=== PATIENT | female | born 1955 | race African-American/Black ===

== ENCOUNTER 2017-03-15 01:31 | Inpatient (IN) | payer OTHER ==
--- NOTE | 2017-03-15 01:56 | PDOC ---
History of Present Illness - General Stated Complaint: BODY PAIN Time Seen by Provider: 03/15/17 01:46 - History of Present Illness Initial Comments: 61 year old female with PMH of HIV (CD4 600+ and Vl undetectable 3 months ago) , asymptomatic kidney stones, presenting with 2 days of crampy abdominal pain occasionally co-presenting in her flanks bilaterally as well. Her abdominal pain started without inciting trauma or peculiar food ingestion. The pain is a 10/10 (at worst) crampy abdominal pain that occasionally wraps around her flanks bilaterally. She does admit that the pain is positional in nature and much worse with sudden movements. She also endorses recent darkening of her urine. Denies continued nausea, vomiting, diarrhea, constipation, chest pain, or blood from any orifice. 03/15/17 02:39 03/15/17 04:40 Past History - Past Medical History Allergies/Adverse Reactions: Allergies Allergy/AdvReac Type Severity Reaction Status Date / Time piperacillin sodium Allergy Mild Itching Verified 03/15/17 02:13 [From Zosyn] tazobactam sodium Allergy Mild Itching Verified 03/15/17 02:13 [From Zosyn] vancomycin AdvReac Intermediate Difficulty Verified 03/15/17 02:13 Breathing lactose-intolerance AdvReac Unknown Uncoded 03/15/17 02:13 Home Medications: Ambulatory Orders Morphine Sulfate 15 mg PO BID #0 tablet 01/24/14 Cyclobenzaprine HCl 10 tab PO BID 04/27/14 Gabapentin [Neurontin -] 300 mg PO Q8H 12/26/15 Ammonium Lactate Lotion [Lac-Hydrin 12] 1 applic TP BID #1 bottle 08/27/16 Abacavir/Dolutegravir/Lamivudi [Triumeq Tablet] 1 each PO DAILY #30 tablet 12/17 Albuterol 0.083% Nebulizer Aruna [Ventolin 0.083% Nebulizer Soln -] 1 neb PO PRN # 90 amp MDD 4 12/17/16 Albuterol Sulfate Inhaler - [Ventolin HFA Inhaler -] 1 - 2 inh PO Q6H PRN #1 inhaler 12/17/16 Docusate Sodium [Colace -] 100 mg PO BID #60 capsule 12/17/16 Multivitamin [Poly-Vitamin] 1 each PO DAILY #30 tab.chew 12/17/16 Tiotropium [place] [Spiriva] 1 inh IH DAILY #1 inh 12/17/16 Valacyclovir HCl [Valtrex -] 500 mg PO DAILY #30 tablet 12/17/16 Anemia: Yes (hemolytic anema 2011) Asthma: Yes Cancer: No Cardiac Disorders: No CVA: No COPD: Yes (legionella pneumonia 2008, cavitary pneumonia 2012, bronch negative, bronch) CHF: No Dementia: No Diabetes: No GI Disorders: Yes (granulomatous hepatitis) Disorders: No HTN: No Hypercholesterolemia: No HIV: Yes (HIV+) Kidney Stones: No Liver Disease: Yes Psychiatric Problems: Yes (Seen for depression in 1998 when diagnosed HIV+) Suicide Attempt (Hx): No Seizures: No Thyroid Disease: No - Surgical History Abdominal Surgery: Yes (ectopic in 1986, TUBAL LIGATION) Appendectomy: No Cardiac Surgery: No Cholecystectomy: Yes (GB SX) Lung Surgery: No Neurologic Surgery: No Orthopedic Surgery: No - Reproductive History PID: No - Psycho/Social/Smoking Cessation Hx Anxiety: No Suicidal Ideation: No Smoking Status: Yes (QUIT 05/2012) Smoking History: Never smoked Years of Tobacco Use: 30 Have you smoked in the past 12 months: No Number of Cigarettes Smoked Daily: 5 If you are a former smoker, when did you quit?: 2012 Cigars Per Day: 0 'Breaking Loose' booklet given: 12/21/11 Hx Alcohol Use: No Drug/Substance Use Hx: No Substance Use Type: Cocaine, Prescribed Hx Substance Use Treatment: Yes Review of Systems - Review of Systems Constitutional: No: Chills, Diaphoresis, Fever, Loss of Appetite HEENTM: No: Eye Pain, Blurred Vision Respiratory: No: Cough, Shortness of Breath, SOB with Exertion Cardiac (ROS): No: Chest Pain, Edema, Irregular Heart Rate ABD/GI: Yes: Abdominal Distended, Nausea, Vomiting. No: Constipated, Diarrhea : Yes: Flank Pain. 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 negative: Tender, Rigid Respiratory/Chest: positive: Lungs Clear, Normal Breath Sounds. negative: Chest Tender, Respiratory Distress, Accessory Muscle Use Cardiovascular: positive: Regular Rhythm, Regular Rate, S1, S2. negative: Edema , Murmur Gastrointestinal/Abdominal: positive: Normal Bowel Sounds, Tender (Very tender in epgiastrium and LUQ to light palpation. Tender to Deep palpation in her lef lower quadrant. No guarding but abdomen appears rigid even prior to touch.). negative: Flat, Soft, Organomegaly Musculoskeletal: positive: Normal Inspection, Other (Unable to ascertain CVA tenderness because of pain.) Extremity: positive: Normal Inspection, Normal Range of Motion Integumentary: positive: Normal Color, Dry, Warm Neurologic: positive: Fully Oriented, Alert, Normal Mood/Affect, Motor Strength 5/5 Heart Score/ECG Review - Electrocardiogram EKG: Normal - ECG Intrepretation Rhythm: Regular Rhythm - [place]: Normal - ECG Impressions Normal ECG: Yes Non-specific ST Elevation: No Ischemic Changes: No (Nonspecific S waves throughout but present in EKG from 2014. No signs.) ED Treatment Course - LABORATORY CBC & Chemistry Diagram: 03/15/17 02:30 03/15/17 02:30 Medical Decision Making - Medical Decision Making 61 year odl female with well controlled HIV and history of asymptomatic kidney stones presenting with crampy intermittent positional abdominal pain worse in the epigastrium and LUQ. This is most concernign for renal colic gien her recent urianry changes and history of kidney stones. Her gallbladder has been removed so cholelithiasis is lower on the differential as well diverticulitis/ deverticulosis. A more serious etiology such as AAA or cardiac insult/ ACS should also be ruled out given her HIV history and age as this could be atypical ND presentation. CBC, CMP, Lipase, troponin, EKG, Chest XR, and CT abdomen with IV contrast will be pursued (once CR returns) 03/15/17 03:51 03/15/17 04:37 Ct with IV con demonstrating some nonspecific liver changes that could represent a slew of pathologies but no sign of renal stone or any other acute pathology to mention. However, she is still having abdominal pain worse with movement. Her CBC, and CMP demonstrate an element of mild CKD and consistently elevated alkaline phosphate compared to her previous values. She also has a new thrombocytopenia as of the last 8 months that has been downtrending 208 () , 130 ( 12/2016), and 120 today. The etiology of her Thrombocytopenia is most likely due to her enlarged spleen which could also be the source for her belly pain. 03/15/17 04:45 03/15/17 04:55 Given her persistently concerning abdominal exam, she should be admitted for serial belly exams and general observation. 03/15/17 05:[address] Arambula PGY2 on at approximately 5:00 AM and he will admit the patient for observation. *DC/Admit/Observation/Transfer Diagnosis at time of Disposition: Abdominal pain - Discharge Dispostion Condition at time of disposition: Stable Admit: Yes - Attestations Physician Attestion: 03/15/17 05:34 I, Dr. Akilah Bender, attest that this document has been prepared under my direction and personally reviewed by me in its entirety. I further attest, that it accurately reflects all work, treatment, procedures and medical decision -making performed by me.
[2017-03-15 02:37] LABS: BASOPHIL 0.5 % (0-2.0); EOSINOPHIL 3.9 % (0-4.5); MCH 32.4 pg (25.7-33.7); MCHC 33.8 g/dl (32.0-36.0); MEAN CELL VOLUME 95.9 fl (80-96); PLATELET COUNT 120 K/MM3 (134-434); RDW 15.5 % (11.6-15.6); WHITE BLOOD COUNT 4.6 K/mm3 (4.0-10.0)
--- NOTE | 2017-03-15 02:47 | PDOC ---
Attending Attestation - Resident Resident Name: Akilah Bender - HPI HPI: 03/15/17 02:41 61yo F hx HIV (CD4 600, UD VL 3 months ago), kidney stones, cholelithiasis p/w 2 days of abdominal pain. Sudden onset, atraumatic, pain is worse in epigastric area, wraps around to flanks b/l. 1 episode N/V 2 days ago, was NBNB. No diarrhea, CP, SOB, F/C. Pain has not gone away, prompting her to come to the ED. No dysuria or frequency. - Physicial Exam PE: 03/15/17 02:44 Vital Signs Period Temp Pulse Resp BP Sys/Wade Pulse Ox Last 24 Hr 98 F 94 22 88-90/44-55 95 GENERAL: Awake, alert, and fully oriented, in no acute distress HEAD: No signs of trauma EYES: PERRLA, EOMI, sclera anicteric, conjunctiva clear ENT: Auricles normal inspection, hearing grossly normal, nares patent, oropharynx clear without exudates. Moist mucosa NECK: Normal ROM, supple, no lymphadenopathy, JVD, or masses LUNGS: Breath sounds equal, clear to auscultation bilaterally. No wheezes, and no crackles HEART: Regular rate and rhythm, normal S1 and S2, no murmurs, rubs or gallops ABDOMEN: Soft, normoactive bowel sounds. No guarding, no rebound. No masses. + TTP in epigastric, LUQ and LLQ ttp. EXTREMITIES: Normal range of motion, no edema. No clubbing or cyanosis. No cords, erythema, or tenderness NEUROLOGICAL: A/O x3. 5/5 strength in all 4 extremities. Normal sensation in all 4 extremities. Negative pronator drift. Normal finger nose finger test. Cranial nerves II through XII grossly intact. Normal speech, normal gait SKIN: Warm, Dry, normal turgor, no rashes or lesions noted. 03/15/17 04:27 EKG: NSR, normal axis and intervals, no DOMINIQUE, no TWI, no change compared to EKG from 01/18/2014 - Medical Decision Making 03/15/17 02:47 61yo hx HIV, cholelithiasis, kidney stones p/w crampy abd pain x 2 days. DDx wide and includes renal colic vs pancreatitis, diverticulitis, UTI vs gastritis. Will obtain EKG and trop in case epigastric pain is atypical presentation of ACS. BP in 80s/90s systolic, pt reports she runs at times as low as the 70s systolic however previous records here show systolic BPs in the low 100s. -labs -UA -CTAP -pain control -IVF -reassess 03/15/17 06:36 CTAP with no acute findings Pt continues to complain of epigastric abd pain, distention despite multiple rounds of pain medication Will admit to hospitalist for further monitoring, serial abdominal exams, and management
[2017-03-15] MEDS ORDERED: SODIUM CHLORIDE 0.9% 1000 ML INFUS.BAG IV ONE (03:01)
[2017-03-15] MEDS ORDERED: morphine CARPU-JECT 2 MG/1 ML DISP.SYRIN IVPUSH ONE (03:03)
[2017-03-15 03:06] LABS: ALBUMIN 2.6 g/dl (3.4-5.0); ALK PHOS 235 U/L (45-117); ANION GAP 3 (8-16); BILIRUBIN,TOTAL 0.9 mg/dL (0.2-1.0); CO2 31 mmol/L (21-32); CREATININE 1.2 mg/dL (0.55-1.02); GLUCOSE,RANDOM 115 mg/dL (74-106); SGOT/AST 43 U/L (15-37); SGPT/ALT 33 U/L (12-78); TOT PROT 7.6 g/dl (6.4-8.2)
[2017-03-15] MEDS ORDERED: morphine CARPU-JECT 4 MG/1 ML DISP.SYRIN ONE ×2 (03:06→06:48)
[2017-03-15 03:26] LABS: CPK 64 IU/L (26-192); TROPONIN I < 0.02 ng/ml (0.00-0.05)
--- NOTE | 2017-03-15 06:01 | PN ---
Teaching Attending Note Name of Resident: Zulma Conley ATTENDING PHYSICIAN STATEMENT I saw and evaluated the patient. I reviewed the resident's note and discussed the case with the resident. I agree with the resident's findings and plan as documented. SUBJECTIVE: 61 yo M with pmhx of HIV (CD4 600) VL undectable, Lymphadenopathy (?Sarciod)who presents with abdominal pain since Wednesday. Pt. states pain started out as "gas" pains Wednesday, but did not dissapate. Pain only occurs with change in position and is concentrated on her left side. States she vomited (bilious, non- bloody) X1 on Wednesday. Nothing has improved pain, except laying still. No chest pain, pressure or shortness of breath. Pshx: Gallbladder removed Biopsy of RP nodes- Benign as per pt. OBJECTIVE: Physical: VS: Vital Signs Period Temp Pulse Resp BP Sys/Wade Pulse Ox Last 24 Hr 98 F 94 22 88-90/44-55 95 GEN: Elderly Female, in NAD, resting in bed HEENT: NCAT, PERRL, poor dentition, throat clear withour erythema or exudates CARD: RRR S1, S2 RESP: CTAB ABD: BSX4, Mild distension, diffuse tenderness to palpation EXT: - C/C/E CBCD WBC 4.6 K/mm3 (4.0-10.0) D 03/15/17 02:30 RBC 3.83 M/mm3 (3.60-5.2) 03/15/17 02:30 Hgb 12.4 GM/dL (10.7-15.3) 03/15/17 02:30 Hct 36.8 % (32.4-45.2) 03/15/17 02:30 MCV 95.9 fl (80-96) 03/15/17 02:30 MCHC 33.8 g/dl (32.0-36.0) 03/15/17 02:30 RDW 15.5 % (11.6-15.6) 03/15/17 02:30 Plt Count 120 K/MM3 (134-434) L 03/15/17 02:30 MPV 9.0 fl (7.5-11.1) 03/15/17 02:30 CMP Sodium 137 mmol/L (136-145) 03/15/17 02:30 Potassium 4.0 mmol/L (3.5-5.1) 03/15/17 02:30 Chloride 103 mmol/L (98-107) 03/15/17 02:30 Carbon Dioxide 31 mmol/L (21-32) 03/15/17 02:30 Anion Gap 3 (8-16) L 03/15/17 02:30 BUN 15 mg/dL (7-18) D 03/15/17 02:30 Creatinine 1.2 mg/dL (0.55-1.02) H 03/15/17 02:30 Creat Clearance w eGFR 45.37 (>60) 03/15/17 02:30 Random Glucose 115 mg/dL (74-106) H D 03/15/17 02:30 Calcium 8.0 mg/dL (8.5-10.1) L 03/15/17 02:30 Total Bilirubin 0.9 mg/dL (0.2-1.0) D 03/15/17 02:30 AST 43 U/L (15-37) H 03/15/17 02:30 ALT 33 U/L (12-78) 03/15/17 02:30 Alkaline Phosphatase 235 U/L (45-117) H 03/15/17 02:30 Total Protein 7.6 g/dl (6.4-8.2) 03/15/17 02:30 Albumin 2.6 g/dl (3.4-5.0) L 03/15/17 02:30 CARDIAC ENZYMES Creatine Kinase 64 IU/L (26-192) 03/15/17 02:30 Troponin I < 0.02 ng/ml (0.00-0.05) 03/15/17 02:30 CT AP: Enlarged liver suggesting Cirrhosis, RP and intraperitoneal LN, L. Renal cyst, diverticulossis Home Medications Medication Instructions Recorded Morphine Sulfate 15 mg PO BID #0 tablet 01/24/14 Cyclobenzaprine HCl 10 tab PO BID 04/27/14 Gabapentin [Neurontin -] 300 mg PO Q8H 12/26/15 Ammonium Lactate Lotion 1 applic TP BID #1 bottle 08/27/16 [Lac-Hydrin 12] Abacavir/Dolutegravir/Lamivudi 1 each PO DAILY #30 tablet 12/17/16 [Triumeq Tablet] Albuterol 0.083% Nebulizer Aruna 1 neb PO PRN #90 amp MDD 4 12/17/16 [Ventolin 0.083% Nebulizer Soln -] Albuterol Sulfate Inhaler - 1 - 2 inh PO Q6H PRN #1 inhaler 12/17/16 [Ventolin HFA Inhaler -] Docusate Sodium [Colace -] 100 mg PO BID #60 capsule 12/17/16 Multivitamin [Poly-Vitamin] 1 each PO DAILY #30 tab.chew 12/17/16 Tiotropium [place] [Spiriva] 1 inh IH DAILY #1 inh 12/17/16 Valacyclovir HCl [Valtrex -] 500 mg PO DAILY #30 tablet 12/17/16 ASSESSMENT AND PLAN: 61 F with Pmhx of HIV, COPD, Chronic low back pain, knee pain who presents with Left lower quadrant abdominal pain. 1.) Abdominal Pain- Intractable - DDx: Musculoskelatal vs. infection/splenomegaly/Sarcoid - Unknown etiology - CT scan unremarkable- Bx of nodes revealed "granulomas"- refused Sarcoid [place] - Pain control - IVF 2.) HIV - Hold Triumeq in light of inc. Cr - ID consult 3.) LUIS ARMANDO - U lytes - Trend - UA, Ucx, if no improvement renal us 4.) Dvt Ppx - Low Risk- SCDs Place in Obs
[2017-03-15] MEDS ORDERED: ALBUTEROL SO4 6.7 GM HFA INHALER IH PRN ×2 (06:11→06:33)
[2017-03-15] MEDS ORDERED: ALBUTEROL SO4 0.083% IH SOL 2.5 MG/3 ML VIAL.NEB. NEB SCH (06:15)
[2017-03-15] MEDS ORDERED: GABAPENTIN 100 MG CAPSULE (FP) ONE (06:43)
[2017-03-15] MEDS: GABAPENTIN 300 MG CAPSULE (FP) PO SCH ×3 (06:47→21:06)
[2017-03-15] MEDS: SODIUM CHLORIDE 1,000 ML IV SCH ×2 (06:54→19:24)
[2017-03-15] MEDS: morphine CARPU-JECT 4 MG/1 ML DISP.SYRIN IVPUSH PRN ×3 (06:54→21:09)
--- NOTE | 2017-03-15 06:59 | HP ---
CHIEF COMPLAINT: intractable abdominal pain PCP: none, follows Dr. Herndon HISTORY OF PRESENT ILLNESS: 61yo F with PMH of HIV (CD4 600, viral load undetectable), lymphandenopathy presents c/o worsening abdominal pain x 2 days. Pt reports one episode of bilious, non-bloody vomiting Lb morning, then the abdominal pain began which pt attributed to gas. Pt presents to ER this morning with worsening abdominal pain described as tight/contraction-like pain, rated 10/10. Pain is worse with movement and after eating. Pain is improved when pt lies still. In between episodes of pain pt is able to eat and take her medications. Pain spans from left flank to the abdomen. Last BM was yesterday, normal per pt. ER course was notable for: (1) morphine 4mg (2) ns @ 125 ml/hr (3) CXR (4) Ab/Pelvis CT PAST MEDICAL HISTORY: HIV since 1989, only began feeling symptomatic in 2008 COPD PAST SURGICAL HISTORY: cholecystectomy lymph node biopsy near stomach and left subclavicular = normal per pt ectopic 1986 Social History: Smoking: e-cigarette currently, 30 yr hx of smoking Alcohol: none Drugs: none Family History: father passed of adrenal ca at age 72. mother passed of MO at age 68, with hx of htn. Allergies piperacillin sodium [From Zosyn] Allergy (Mild, Verified 03/15/17 02:13) Itching tazobactam sodium [From Zosyn] Allergy (Mild, Verified 03/15/17 02:13) Itching vancomycin Adverse Reaction (Intermediate, Verified 03/15/17 02:13) Difficulty Breathing lactose-intolerance Adverse Reaction (Unknown, Uncoded 03/15/17 02:13) HOME MEDICATIONS: Home Medications Medication Instructions Recorded Morphine Sulfate 15 mg PO BID #0 tablet 01/24/14 Cyclobenzaprine HCl 10 tab PO BID 04/27/14 Gabapentin [Neurontin -] 300 mg PO Q8H 12/26/15 Ammonium Lactate Lotion 1 applic TP BID #1 bottle 08/27/16 [Lac-Hydrin 12] Abacavir/Dolutegravir/Lamivudi 1 each PO DAILY #30 tablet 12/17/16 [Triumeq Tablet] Albuterol 0.083% Nebulizer Aruna 1 neb PO PRN #90 amp MDD 4 12/17/16 [Ventolin 0.083% Nebulizer Soln -] Albuterol Sulfate Inhaler - 1 - 2 inh PO Q6H PRN #1 inhaler 12/17/16 [Ventolin HFA Inhaler -] Docusate Sodium [Colace -] 100 mg PO BID #60 capsule 12/17/16 Multivitamin [Poly-Vitamin] 1 each PO DAILY #30 tab.chew 12/17/16 Tiotropium [place] [Spiriva] 1 inh IH DAILY #1 inh 12/17/16 Valacyclovir HCl [Valtrex -] 500 mg PO DAILY #30 tablet 12/17/16 REVIEW OF SYSTEMS CONSTITUTIONAL: Absent: fever, chills, diaphoresis, generalized weakness, loss of appetite, weight change CARDIOVASCULAR: Absent: chest pain, palpitations, irregular heart rate, peripheral edema RESPIRATORY: Absent: cough, shortness of breath, dyspnea with exertion, wheezing, stridor GASTROINTESTINAL: Present: abdominal pain Absent: abdominal distension, nausea, vomiting, diarrhea, constipation GENITOURINARY: Present: left flank pain Absent: dysuria, frequency, urgency, hesitancy MUSCULOSKELETAL: Absent: myalgia, arthralgia, joint swelling, neck pain SKIN: Absent: rash, itching, pallor HEMATOLOGIC/IMMUNOLOGIC: Absent: easy bleeding, easy bruising, frequent infections ENDOCRINE: Absent: unexplained weight gain, unexplained weight loss, heat intolerance, cold intolerance NEUROLOGIC: Absent: headache, focal weakness or paresthesias, dizziness, unsteady gait, seizure, mental status changes, bladder or bowel incontinence PHYSICAL EXAMINATION Vital Signs - 24 hr 03/15/17 03/15/17 02:13 02:35 Temperature 98 F Pulse Rate 94 H Respiratory 22 Rate Blood Pressure 88/44 Blood Pressure 90/55 [Right Arm] O2 Sat by Pulse 95 Oximetry (%) GENERAL: Awake, alert, and fully oriented, in distress when pain strikes. HEAD: Normal with no signs of trauma. EYES: Pupils equal, round and reactive to light, extraocular movements intact, sclera anicteric, conjunctiva clear. No lid lag. EARS, NOSE, THROAT: Ears normal. Moist mucous membranes. NECK: No JVD, or masses. LUNGS: Breath sounds equal, clear to auscultation bilaterally. No wheezes, and no crackles. No accessory muscle use. HEART: Regular rate and rhythm, normal S1 and S2 without murmur, rub or gallop. ABDOMEN: firm, nontender. Not distended, normoactive bowel sounds, no guarding , no rebound, no masses. LOWER EXTREMITIES: No calf tenderness. No peripheral edema. NEUROLOGICAL: Normal speech. PSYCHIATRIC: Cooperative. Good eye contact. Appropriate mood and affect. SKIN: Warm, dry, normal turgor, no rashes or lesions noted, normal capillary refill. Laboratory Results - last 24 hr 03/15/17 03/15/17 03/15/17 02:30 02:30 02:30 WBC 4.6 D RBC 3.83 Hgb 12.4 Hct 36.8 MCV 95.9 MCH 32.4 MCHC 33.8 RDW 15.5 Plt Count 120 L MPV 9.0 Neutrophils % 55.0 Lymphocytes % 28.5 Monocytes % 12.1 H Eosinophils % 3.9 Basophils % 0.5 Sodium 137 Potassium 4.0 Chloride 103 Carbon Dioxide 31 Anion Gap 3 L BUN 15 D Creatinine 1.2 H Creat Clearance w eGFR 45.37 Random Glucose 115 H D Lactic Acid Calcium 8.0 L Total Bilirubin 0.9 D AST 43 H ALT 33 Alkaline Phosphatase 235 H Creatine Kinase 64 Troponin I < 0.02 Total Protein 7.6 Albumin 2.6 L Lipase 201 03/15/17 02:35 WBC RBC Hgb Hct MCV MCH MCHC RDW Plt Count MPV Neutrophils % Lymphocytes % Monocytes % Eosinophils % Basophils % Sodium Potassium Chloride Carbon Dioxide Anion Gap BUN Creatinine Creat Clearance w eGFR Random Glucose Lactic Acid 0.8 Calcium Total Bilirubin AST ALT Alkaline Phosphatase Creatine Kinase Troponin I Total Protein Albumin Lipase IMAGIN03/15/17 Ab/Pelvic CT pending 03/15/17 CXR pending ASSESSMENT/PLAN: 61yo F with PMH of HIV, COPD admitted to observation for intractable abdominal pain. (1) Intractable abdominal pain - possibly 2/2 musculoskeletal vs splenomegaly/infection - pain control - IVFs - f/u Ab/Pelvic CT (2) HIV - hold HIV medications 2/2 LUIS ARMANDO - ID consult (3) LUIS ARMANDO - f/t U/A, U lytes (3) Thrombocytopenia - f/u CBC, CMP (4) FEN - Fluids: cont. NS - Electrolytes: wnl, cont. to monitor - Nutrition: npo (5) Prophylaxis - renato SCDs Visit type - Emergency Visit Emergency Visit: Yes Care time: The patient presented to the Emergency Department on the above date and was hospitalized for further evaluation of their emergent condition. - New Patient This patient is new to me today: Yes Date on this admission: 03/15/17 - Critical Care Critical Care patient: No
[2017-03-15 08:43] LABS: URINE APPEARANCE CLEAR; URINE BILIRUBIN NEGATIVE (NEGATIVE); URINE BLOOD NEGATIVE (NEGATIVE); URINE COLOR YELLOW; URINE GLUCOSE (UA) NEGATIVE (NEGATIVE); URINE KETONE NEGATIVE (NEGATIVE); URINE NITRITE POSITIVE (NEGATIVE); URINE PROTEIN NEGATIVE (NEGATIVE); URINE UROBILINOGEN NEGATIVE mg/dL (0.2-1.0)
[2017-03-15 08:47] LABS: URINE LEUK ESTERASE 1+ (NEGATIVE)
--- NOTE | 2017-03-15 09:03 | PN ---
Teaching Attending Note Name of Resident: Britton Shahid ATTENDING PHYSICIAN STATEMENT I saw and evaluated the patient. I reviewed the resident's note and discussed the case with the resident. I agree with the resident's findings and plan as documented. SUBJECTIVE: Patient is c/o having abdominal pain. OBJECTIVE: Vital Signs Temperature 98.2 F 03/15/17 08:31 Pulse Rate 88 03/15/17 08:31 Respiratory Rate 18 03/15/17 08:31 Blood Pressure 96/69 03/15/17 08:31 O2 Sat by Pulse Oximetry (%) 99 03/15/17 08:31 CBCD WBC 4.6 K/mm3 (4.0-10.0) D 03/15/17 02:30 RBC 3.83 M/mm3 (3.60-5.2) 03/15/17 02:30 Hgb 12.4 GM/dL (10.7-15.3) 03/15/17 02:30 Hct 36.8 % (32.4-45.2) 03/15/17 02:30 MCV 95.9 fl (80-96) 03/15/17 02:30 MCHC 33.8 g/dl (32.0-36.0) 03/15/17 02:30 RDW 15.5 % (11.6-15.6) 03/15/17 02:30 Plt Count 120 K/MM3 (134-434) L 03/15/17 02:30 MPV 9.0 fl (7.5-11.1) 03/15/17 02:30 CMP Sodium 137 mmol/L (136-145) 03/15/17 02:30 Potassium 4.0 mmol/L (3.5-5.1) 03/15/17 02:30 Chloride 103 mmol/L (98-107) 03/15/17 02:30 Carbon Dioxide 31 mmol/L (21-32) 03/15/17 02:30 Anion Gap 3 (8-16) L 03/15/17 02:30 BUN 15 mg/dL (7-18) D 03/15/17 02:30 Creatinine 1.2 mg/dL (0.55-1.02) H 03/15/17 02:30 Creat Clearance w eGFR 45.37 (>60) 03/15/17 02:30 Random Glucose 115 mg/dL (74-106) H D 03/15/17 02:30 Calcium 8.0 mg/dL (8.5-10.1) L 03/15/17 02:30 Total Bilirubin 0.9 mg/dL (0.2-1.0) D 03/15/17 02:30 AST 43 U/L (15-37) H 03/15/17 02:30 ALT 33 U/L (12-78) 03/15/17 02:30 Alkaline Phosphatase 235 U/L (45-117) H 03/15/17 02:30 Total Protein 7.6 g/dl (6.4-8.2) 03/15/17 02:30 Albumin 2.6 g/dl (3.4-5.0) L 03/15/17 02:30 CARDIAC ENZYMES Creatine Kinase 64 IU/L (26-192) 03/15/17 02:30 Troponin I < 0.02 ng/ml (0.00-0.05) 03/15/17 02:30 Current Medications Generic Name Dose Route Start Last Admin Trade Name Freq PRN Reason Stop Dose Admin Aclidinium [place] 1 puff 03/15/17 10:00 Tudorza - IH BID TERRENCE Albuterol Sulfate 1 amp 03/15/17 06:15 Ventolin 0.083% Nebulizer Soln - NEB PRN TERRENCE Albuterol Sulfate 2 puff 03/15/17 06:11 Ventolin Hfa Inhaler - IH Q6H PRN COUGH Albuterol Sulfate 1 puff 03/15/17 06:33 Ventolin Hfa Inhaler - IH Q6H PRN COUGH Cyclobenzaprine HCl 10 mg 03/15/17 10:00 Flexeril - PO BID TERRENCE Docusate Sodium 100 mg 03/15/17 10:00 Colace - PO BID TERRENCE Gabapentin 300 mg 03/15/17 06:15 03/15/17 06:47 Neurontin - PO Not Given TID TERRENCE Sodium Chloride 1,000 mls @ 125 mls/hr 03/15/17 06:15 03/15/17 06:54 Normal Saline - IV 125 mls/hr ASDIR TERRENCE Administration Lactic Acid 1 applic 03/15/17 10:00 Lac-Hydrin 12 TP BID TERRENCE Morphine Sulfate 4 mg 03/15/17 06:01 03/15/17 06:54 Morphine Injection - IVPUSH 4 mg Q4H PRN Administration PAIN Multivitamins/Minerals/Vitamin C 1 tab 03/15/17 10:00 Tab-A-Vit - PO DAILY COUNT INCLUDES THE [facility] Non-Formulary Medication 1 each 03/15/17 06:25 Abacavir/Dolutegravir/Lamivudi [Triumeq Tablet] PO DAILY COUNT INCLUDES THE [facility] Ondansetron HCl 4 mg 03/15/17 10:00 Zofran Injection IVPUSH DAILY COUNT INCLUDES THE [facility] Valacyclovir HCl 500 mg 03/15/17 10:00 Valtrex - PO DAILY COUNT INCLUDES THE [facility] Home Medications Medication Instructions Recorded Morphine Sulfate 15 mg PO BID #0 tablet 01/24/14 Cyclobenzaprine HCl 10 tab PO BID 04/27/14 Gabapentin [Neurontin -] 300 mg PO Q8H 12/26/15 Ammonium Lactate Lotion 1 applic TP BID #1 bottle 08/27/16 [Lac-Hydrin 12] Abacavir/Dolutegravir/Lamivudi 1 each PO DAILY #30 tablet 12/17/16 [Triumeq Tablet] Albuterol 0.083% Nebulizer Aruna 1 neb PO PRN #90 amp MDD 4 12/17/16 [Ventolin 0.083% Nebulizer Soln -] Albuterol Sulfate Inhaler - 1 - 2 inh PO Q6H PRN #1 inhaler 12/17/16 [Ventolin HFA Inhaler -] Docusate Sodium [Colace -] 100 mg PO BID #60 capsule 12/17/16 Multivitamin [Poly-Vitamin] 1 each PO DAILY #30 tab.chew 12/17/16 Tiotropium [place] [Spiriva] 1 inh IH DAILY #1 inh 12/17/16 Valacyclovir HCl [Valtrex -] 500 mg PO DAILY #30 tablet 12/17/16 CT SCAN SHOWS CIRRHOSIS, ADENOPATHY AND SPLENOMEGALY. SHE HAS HAD A LIVER BIOPSY AND LYMPH NODE BIOPSY IN THE PAST. PE: per resident's note ASSESSMENT AND PLAN: Patient is a 61 YEAR OLD FEMALE HIV POSITIVE, SUBSTANCE ABUSE ,ALCOHOL abuse, hx of sarcoidosis presented to ED. with abdominal pain. THE WORKING # Abdominal pain syndrome: Ct scan without any obstruction; Chronic liver disease # Granulomatous hepatitis work up was done as an outpatient as per # Hx of Sarcoidosis # Abnormal LFTs (liver function tests) # HIV (human immunodeficiency virus infection) HIV + asymptomatic VL <20 CD4 601. OK to continue ART as per ID DVT Px; SCDs
[2017-03-15 09:13] LABS: URINE BACTERIA FEW /hpf (NONE SEEN); URINE RBC 58 /hpf (0-3); URINE WBC 21 /hpf (3-5)
[2017-03-15] MEDS: DOCUSATE SODIUM 100 MG CAPSULE (FP) PO SCH ×2 (11:11→21:06)
[2017-03-15] MEDS: MULTIVITAMINS (DAILY MVI) TABLET (FP) PO SCH (11:11)
[2017-03-15] MEDS: CYCLOBENZAPRINE HCL 10 MG TABLET (FP) PO SCH ×2 (11:11→21:06)
[2017-03-15] MEDS: ONDANSETRON 4 MG/2 ML VIAL IVPUSH SCH (11:11)
[2017-03-15] MEDS: AMMONIUM LACTATE 12% LOTION 225 GM BOTTLE TP SCH ×2 (11:19→21:06)
[2017-03-15] MEDS: ACLIDINIUM BROMIDE 400 MCG/INH AERO.POWD IH SCH ×2 (11:19→21:06)
[2017-03-15] MEDS ORDERED: ALBUTEROL SO4 0.083% IH SOL 2.5 MG/3 ML VIAL.NEB. NEB PRN (11:22)
[2017-03-15 11:53] LABS: MCH 32.7 pg (25.7-33.7); MCHC 33.5 g/dl (32.0-36.0); MEAN CELL VOLUME 97.5 fl (80-96); MEAN PLT VOLUME 8.7 fl (7.5-11.1); PLATELET COUNT 116 K/MM3 (134-434); WHITE BLOOD COUNT 4.5 K/mm3 (4.0-10.0)
[2017-03-15 12:37] LABS: ALBUMIN 2.7 g/dl (3.4-5.0); ANION GAP 6 (8-16); BILIRUBIN,TOTAL 1.3 mg/dL (0.2-1.0); CALCIUM 8.5 mg/dL (8.5-10.1); CO2 30 mmol/L (21-32); GLUCOSE,RANDOM 88 mg/dL (74-106); LDH 207 U/L (84-246); SGOT/AST 46 U/L (15-37); SGPT/ALT 32 U/L (12-78)
[2017-03-15 12:38] LABS: ALK PHOS 232 U/L (45-117); TOT PROT 7.6 g/dl (6.4-8.2)
[2017-03-15 12:44] VITALS: BMI 26.4
--- NOTE | 2017-03-15 13:35 | EKG ---
Test Reason : Blood Pressure : / mmHG Vent. Rate : 085 BPM Atrial Rate : 085 BPM P-R Int : 168 ms QRS Dur : 094 ms QT Int : 370 ms P-R-T Axes : 043 -12 066 degrees QTc Int : 440 ms NORMAL SINUS RHYTHM WHEN COMPARED WITH ECG OF 18-JAN-2014 15:37, NO SIGNIFICANT CHANGE WAS FOUND Confirmed by MARILEE QUISPE MD ([id number]) on 03/15/2017 1:34:54 PM Referred By: Confirmed By:MARILEE QUISPE MD
[2017-03-15] MEDS ORDERED: PT OWN MED DRAWER 7, Y5N ONE ×2 (13:57→14:50)
[2017-03-15] MEDS: valACYclovir HCL 500 MG TABLET (FP) PO SCH (14:06)
--- NOTE | 2017-03-15 15:46 | PN ---
Progress Note (short form) - Note Progress Note: ID Consult dictated Abdominal pain syndrome Chronic liver disease? Cirrhosis HIV + asymptomatic VL <20 CD4 601 GI evaluation Observe off antibiotics OK to continue ART
--- NOTE | 2017-03-15 18:22 | PN ---
Physical Exam: SUBJECTIVE: Patient seen and examined OBJECTIVE: Vital Signs Period Temp Pulse Resp BP Sys/Wade Pulse Ox Last 24 Hr 98.2 F-98.5 F 84-88 18-18 96-115/63-72 99-99 GENERAL: The patient is awake, alert, and fully oriented, in no acute distress. HEAD: Normal with no signs of trauma. EYES: PERRL, extraocular movements intact, sclera anicteric, conjunctiva clear. No ptosis. ENT: Ears normal, nares patent, oropharynx clear without exudates, moist mucous membranes. NECK: Trachea midline, full range of motion, supple. LUNGS: Breath sounds equal, clear to auscultation bilaterally, no wheezes, no crackles, no accessory muscle use. HEART: Regular rate and rhythm, S1, S2 without murmur, rub or gallop. ABDOMEN: Soft, nontender, nondistended, normoactive bowel sounds, no guarding, no rebound, no hepatosplenomegaly, no masses. EXTREMITIES: 2+ pulses, warm, well-perfused, no edema. NEUROLOGICAL: Cranial nerves II through XII grossly intact. Normal speech, gait not observed. PSYCH: Normal mood, normal affect. SKIN: Warm, dry, normal turgor, no rashes or lesions noted Laboratory Results - last 24 hr 03/15/17 03/15/17 03/15/17 08:30 11:36 11:36 WBC 4.5 RBC 3.78 Hgb 12.3 Hct 36.9 MCV 97.5 H MCH 32.7 MCHC 33.5 RDW 16.0 H Plt Count 116 L MPV 8.7 Sodium 139 Potassium 4.0 Chloride 103 Carbon Dioxide 30 Anion Gap 6 L BUN 14 Creatinine 1.0 Creat Clearance w eGFR 56.00 Random Glucose 88 D Calcium 8.5 Total Bilirubin 1.3 H D AST 46 H ALT 32 Alkaline Phosphatase 232 H LD Total 207 D Total Protein 7.6 Albumin 2.7 L Urine Color Yellow Urine Appearance Clear Urine pH 6.0 Ur Specific [place] 1.010 Urine Protein Negative Urine Glucose (UA) Negative Urine Ketones Negative Urine Blood Negative Urine Nitrite Positive Urine Bilirubin Negative Urine Urobilinogen Negative Ur Leukocyte Esterase 1+ H Urine RBC 58 Urine WBC 21 Ur Epithelial Cells Rare Urine Bacteria Few Active Medications Generic Name Dose Route Start Last Admin Trade Name Freq PRN Reason Stop Dose Admin Aclidinium [place] 1 puff 03/15/17 10:00 03/15/17 11:19 Tudorza - IH 1 puff BID TERRENCE Administration Albuterol Sulfate 2 puff 03/15/17 06:11 Ventolin Hfa Inhaler - IH Q6H PRN COUGH Albuterol Sulfate 1 puff 03/15/17 06:33 Ventolin Hfa Inhaler - IH Q6H PRN COUGH Albuterol Sulfate 1 amp 03/15/17 11:22 Ventolin 0.083% Nebulizer Soln - NEB Q6H PRN ASTHMA Cyclobenzaprine HCl 10 mg 03/15/17 10:00 03/15/17 11:11 Flexeril - PO 10 mg BID TERRENCE Administration Docusate Sodium 100 mg 03/15/17 10:00 03/15/17 11:11 Colace - PO 100 mg BID TERRENCE Administration Gabapentin 300 mg 03/15/17 06:15 03/15/17 14:06 Neurontin - PO 300 mg TID TERRENCE Administration Sodium Chloride 1,000 mls @ 125 mls/hr 03/15/17 06:15 03/15/17 06:54 Normal Saline - IV 125 mls/hr ASDIR TERRENCE Administration Lactic Acid 1 applic 03/15/17 10:00 03/15/17 11:19 Lac-Hydrin 12 TP 1 applic BID TERRENCE Administration Morphine Sulfate 4 mg 03/15/17 06:01 03/15/17 14:21 Morphine Injection - IVPUSH 4 mg Q4H PRN Administration PAIN Multivitamins/Minerals/Vitamin C 1 tab 03/15/17 10:00 03/15/17 11:11 Tab-A-Vit - PO 1 tab DAILY TERRENCE Administration Non-Formulary Medication 1 each 03/15/17 13:00 03/15/17 14:07 Abacavir/Dolutegravir/Lamivudi [Triumeq Tablet] PO 1 each DAILY TERRENCE Administration Ondansetron HCl 4 mg 03/15/17 10:00 03/15/17 11:11 Zofran Injection IVPUSH 4 mg DAILY TERRENCE Administration Valacyclovir HCl 500 mg 03/15/17 10:00 03/15/17 14:06 Valtrex - PO 500 mg DAILY TERRENCE Administration ASSESSMENT/PLAN: 61yo F with PMH of HIV, COPD admitted to observation for intractable abdominal pain. # Intractable abdominal pain - possibly musculoskeletal r/o splenomegaly/infection - pain control - NS @ 125 - Ab/Pelvic CT: splenomegaly. no explanation for abd pain # HIV - hold HIV medications 2/2 LUIS ARMANDO -per ID, will observe for now # LUIS ARMANDO - UA pos nitrites, 1+ LE, 58 RBC, 21 WBC -IVF # Thrombocytopenia - CBC thrombocytopenia - CMP minor lft derrangements stable from yest # FEN - Fluids: cont. NS - Electrolytes: wnl, cont. to monitor - Nutrition: npo # Prophylaxis - b/l SCDs Visit type - Emergency Visit Emergency Visit: Yes ED Registration Date: 03/15/17 Care time: The patient presented to the Emergency Department on the above date and was hospitalized for further evaluation of their emergent condition. - New Patient This patient is new to me today: No - Critical Care Critical Care patient: No - Discharge Referral Referred to [facility] Med P.C.: No
--- NOTE | 2017-03-15 19:01 | CON.GI ---
Consult Consult Specialty:: GASTROENTEROLOGY - History of Present Illness Chief Complaint: ABDOMINAL PAIN History of Present Illness: 61 YEAR OLD FEMALE HIV POSITIVE, SUBSTANCE ABUSE (ALCOHOL?, REHAB IN 2012) KNOW TO ME IN THE PAST BUT HAS NOT BEEN TO MY OFFICE IN 3YEARS. CARED FOR BY DR SINGH WHO KNOWS HER VERY WELL. 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 I HAVE NOT SEEN HER SINCE. SHE IS ADMITTED WITH ABDOMINAL PAIN. CT SCAN SHOWS CIRRHOSIS, ADENOPATHY AND SPLENOMEGALY. sHE HAS HAD A LIVER BIOPSY AND LYMPH NODE BIOPSY IN THE PAST. - History Source History Provided By: Patient - Past Medical History CERTIFIED OPHTHALMIC SURGICAL ASSISTANT: No: Alzheimer's, CVA, Dementia, Migraine, Multiple Sclerosis, Peripheral Neuropathy, Parkinson's, Seizure, Syncope, TIA, Vertigo, Other Cardio/Vascular: No: AFIB, Aneurysm, Aortic Insufficiency, Aortic Stenosis, CAD , CHF, Deep Vein Thrombosis, HTN, Hyperlipdemia, NH, Mitral Insufficiency, Mitral Stenosis, Murmur, Pulmonary Hypertension, Other Pulmonary: Yes: Other (Sarcoidosis. Pulmonary aspergilloma.) Gastrointestinal: Yes: Other (Chronic liver disease with biopsy 08/2012 showing stage 3 fibrosis (stage 4 is cirrhosis). ) Hepatobiliary: Yes: Other (Chronic liver disease. Pt is unsure whether she has hepatitis B or C or something else.) ...LMP: 12/19/06 Infectious Disease: Yes: Other (HIV positive. 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 Followed by Drs. Serrano and Tangela. SHE HAS A HISTORY OF SUBSTANCE ABUSE(NOT SURE IF IT WAS ALCOHOL OR OPIATES) - Past Surgical History Past Surgical History: Yes: Cholecystectomy - Alcohol/Substance Use Hx Alcohol Use: No - Smoking History Smoking history: Never smoked Have you smoked in the past 12 months: No Aproximately how many cigarettes per day: 5 If you are a former smoker, when did you quit?: 2013 Home Medications - Allergies Allergies/Adverse Reactions: Allergies Allergy/AdvReac Type Severity Reaction Status Date / Time piperacillin sodium Allergy Mild Itching Verified 03/15/17 02:13 [From Zosyn] tazobactam sodium Allergy Mild Itching Verified 03/15/17 02:13 [From Zosyn] vancomycin AdvReac Intermediate Difficulty Verified 03/15/17 02:13 Breathing lactose-intolerance AdvReac Unknown Uncoded 03/15/17 02:13 - Home Medications Home Medications: Ambulatory Orders Morphine Sulfate 15 mg PO BID #0 tablet 01/24/14 Cyclobenzaprine HCl 10 tab PO BID 04/27/14 Gabapentin [Neurontin -] 300 mg PO Q8H 12/26/15 Ammonium Lactate Lotion [Lac-Hydrin 12] 1 applic TP BID #1 bottle 08/27/16 Abacavir/Dolutegravir/Lamivudi [Triumeq Tablet] 1 each PO DAILY #30 tablet 12/17 Albuterol 0.083% Nebulizer [place]una [Ventolin 0.083% Nebulizer Soln -] 1 neb PO PRN # 90 amp MDD 4 12/17/16 Albuterol Sulfate Inhaler - [Ventolin HFA Inhaler -] 1 - 2 inh PO Q6H PRN #1 inhaler 12/17/16 Docusate Sodium [Colace -] 100 mg PO BID #60 capsule 12/17/16 Multivitamin [Poly-Vitamin] 1 each PO DAILY #30 tab.chew 12/17/16 Tiotropium [place] [Spiriva] 1 inh IH DAILY #1 inh 12/17/16 Valacyclovir HCl [Valtrex -] 500 mg PO DAILY #30 tablet 12/17/16 Family Disease History - Family Disease History Family Disease History: Heart Disease: Mother (d. NH, HTN, age 68), [place]: Father ( adrenal gland) Review of Systems - Review of Systems Constitutional: reports: No Symptoms Eyes: reports: No Symptoms HENT: reports: No Symptoms Neck: reports: No Symptoms Cardiovascular: reports: No Symptoms Respiratory: reports: No Symptoms Gastrointestinal: reports: Abdominal Pain, Vomiting Musculoskeletal: reports: No Symptoms Integumentary: reports: No Symptoms Neurological: reports: No Symptoms Endocrine: reports: No Symptoms Hematology/Lymphatic: reports: No Symptoms Physical Exam-GI Vital Signs: Vital Signs Temperature 98.5 F 03/15/17 14:57 Pulse Rate 88 03/15/17 14:57 Respiratory Rate 18 03/15/17 14:57 Blood Pressure 115/63 03/15/17 14:57 O2 Sat by Pulse Oximetry (%) 99 03/15/17 12:45 Constitutional: Yes: No Distress Eyes: Yes: Conjunctiva Clear HENT: Yes: Normocephalic Neck: Yes: Supple Cardiovascular: Yes: Regular Rate and Rhythm Respiratory: Yes: Regular Gastrointestinal Inspection: Yes: Distention ...Auscultate: Yes: Normoactive Bowel Sounds ...Palpate: Yes: Soft, Tenderness ...Percussion: Yes: Tympanitic Extremities: Yes: WNL Labs: CBC, BMP 03/15/17 11:36 03/15/17 11:36 Laboratory Tests 03/15/17 03/15/17 03/15/17 08:30 11:36 11:36 WBC 4.5 RBC 3.78 Hgb 12.3 Hct 36.9 MCV 97.5 H MCH 32.7 MCHC 33.5 RDW 16.0 H Plt Count 116 L MPV 8.7 Sodium 139 Potassium 4.0 Chloride 103 Carbon Dioxide 30 Anion Gap 6 L BUN 14 Creatinine 1.0 Creat Clearance w eGFR 56.00 Random Glucose 88 D Calcium 8.5 Total Bilirubin 1.3 H D AST 46 H ALT 32 Alkaline Phosphatase 232 H LD Total 207 D Total Protein 7.6 Albumin 2.7 L Urine Bilirubin Negative Imaging - Results Cat Scan: Image Reviewed Problem List - Problems (1) Abdominal pain Assessment/Plan: ABDOMEN IS DISTENDED. CT SCAN WITHOUT OBSTRUCTION GET FLAT AND UPRIGHT OF ABDOMEN IN AM Code(s): R10.9 - UNSPECIFIED ABDOMINAL PAIN (2) Granulomatous hepatitis Assessment/Plan: PROBABLY HAS CIRRHOSIS BUT NOT CAUSE OF HER PAIN AND ABDOMINAL DISTENSION. Code(s): K75.3 - GRANULOMATOUS HEPATITIS, NOT ELSEWHERE CLASSIFIED (3) Sarcoidosis Code(s): D86.9 - SARCOIDOSIS, UNSPECIFIED (4) Abnormal LFTs (liver function tests) Code(s): R79.89 - OTHER SPECIFIED ABNORMAL FINDINGS OF BLOOD CHEMISTRY (5) HIV (human immunodeficiency virus infection) Code(s): Z21 - ASYMPTOMATIC HUMAN IMMUNODEFICIENCY VIRUS INFECTION STATUS
[2017-03-16] MEDS: SODIUM CHLORIDE 1,000 ML IV SCH ×4 (04:01→23:05)
[2017-03-16] MEDS: morphine CARPU-JECT 4 MG/1 ML DISP.SYRIN IVPUSH PRN ×3 (04:17→15:15)
[2017-03-16] MEDS: GABAPENTIN 300 MG CAPSULE (FP) PO SCH ×3 (07:04→22:57)
--- NOTE | 2017-03-16 08:17 | CONS ---
DATE OF CONSULTATION: DATE OF DICTATION: 03/15/2017 The patient is a 61-year-old female, history of HIV positive. Evaluated for abdominal pain syndrome. The patient states that she was doing well until approximately 2 days prior to admission. She developed diffuse crampy type abdominal pain associated with nausea and 1 episode of bilious vomiting. She had worsening abdominal pain to the point where she presented to the emergency room. In the emergency room a CAT scan of the abdomen and pelvis was performed and showed evidence of chronic liver disease and splenomegaly, nonobstructing kidney stone; otherwise, negative for acute GI pathology. The patient denies any diarrhea. She had a normal bowel movement 1 day prior to admission. She does take opiate analgesics for chronic pain; however, denies history of chronic constipation. No ill contacts. No family members with similar GI syndromes. No recent travel. PAST MEDICAL HISTORY: Positive for HIV disease. She has been positive for the past 27 years. She is asymptomatic on antiretroviral therapy. Most recent viral load was less than 20 copies. T-cell count 601. Denies prior history of opportunistic infection. She has had adenopathy in the past for which she had undergone a biopsy which was nondiagnostic. In addition, the patient has a history of chronic liver disease, possibly secondary to sarcoid. Biopsies of the liver showed granulomatous hepatitis; however, she did not receive treatment for sarcoid after being evaluated at [facility]. Past medical history also positive for COPD, diverticulosis, nephrolithiasis, history of legionella pneumonia 2008, cavitary pneumonia 2012, granulomatous hepatitis with stigmata of chronic liver disease (cirrhosis, splenomegaly and esophageal varices). PAST SURGICAL HISTORY: Status post tubal ligation and cholecystectomy. ALLERGIES: ZOSYN AND VANCOMYCIN. MEDICATIONS: Morphine, Neurontin, Triumeq, Ventolin, Colace, Spiriva, chronic Valtrex suppression. SOCIAL HISTORY: Positive for tobacco, negative for alcohol abuse. SYSTEMS REVIEWED: Neurologic: No loss of consciousness, seizure activity, focal weakness. Cardiac: Negative chest pain or palpitations. Respiratory: Negative cough or sputum production. Gastrointestinal: As per HPI. Genitourinary: Negative for urinary tract infection. LABORATORY DATA: White count 4.5, and 55 neutrophils, 28 lymphocytes, 12 monocytes, 4 eosinophils. BUN 14, creatinine 1.0. Urinalysis 21 white cells. Liver enzymes; total bilirubin 1.3, alkaline phosphatase 232, AST 46, ALT 32. Chest x-ray negative for acute infiltrate. CAT scan of the abdomen and pelvis shows cirrhosis with splenomegaly, a small amount of periportal edema, enlarged retroperitoneal and mesenteric lymph nodes, nonobstructing renal calculus on the right, diverticulosis without evidence of acute diverticulitis and cholecystectomy. PHYSICAL EXAMINATION: General: On examination she is awake and alert. She is in moderate distress secondary to abdominal pain. Vital Signs: Temperature 98.5, blood pressure 115/63, pulse 88 regular, respirations 18 per minute. HEENT: Sclerae anicteric. Positive ptosis. Oropharynx negative. Neck: Supple. Heart: Heart sounds S1, S2. Lungs: Clear. Abdomen: Distended. There is positive bowel sounds. The abdomen is mild diffuse tenderness to palpation with tympany. No mass, rebound or rigidity. Extremities: Negative for pedal edema. IMPRESSION: 1. Abdominal pain syndrome, unclear etiology. 2. Human immunodeficiency virus positive, asymptomatic. 3. Chronic liver disease. Etiology of abdominal pain syndrome not clear. Agree with GI evaluation. Unlikely we are dealing with an opportunistic infection in this patient with a T-cell count of 601. May require further evaluation of her adenopathy in light of symptoms. Observe off antibiotic therapy. No objection to continuing antiretroviral therapy at this time. We will follow. Thank you for the kind referral. COSTA SUN M.D. [id number]
[2017-03-16 09:10] LABS: BASOPHIL 0.5 % (0-2.0); EOSINOPHIL 2.2 % (0-4.5); MCH 32.5 pg (25.7-33.7); MCHC 33.9 g/dl (32.0-36.0); MEAN CELL VOLUME 95.7 fl (80-96); MEAN PLT VOLUME 8.7 fl (7.5-11.1); NEUTROPHILS 62.7 % (42.8-82.8); PLATELET COUNT 104 K/MM3 (134-434)
[2017-03-16] MEDS ORDERED: PT OWN MED DRAWER 7, Y5N ONE (09:32)
[2017-03-16] MEDS: MULTIVITAMINS (DAILY MVI) TABLET (FP) PO SCH (09:36)
[2017-03-16] MEDS: ONDANSETRON 4 MG/2 ML VIAL IVPUSH SCH (09:36)
[2017-03-16] MEDS: DOCUSATE SODIUM 100 MG CAPSULE (FP) PO SCH ×2 (09:36→22:57)
[2017-03-16] MEDS: CYCLOBENZAPRINE HCL 10 MG TABLET (FP) PO SCH ×2 (09:36→22:57)
[2017-03-16] MEDS: AMMONIUM LACTATE 12% LOTION 225 GM BOTTLE TP SCH ×2 (09:37→22:58)
[2017-03-16] MEDS: ACLIDINIUM BROMIDE 400 MCG/INH AERO.POWD IH SCH ×2 (09:37→22:58)
[2017-03-16] MEDS: valACYclovir HCL 500 MG TABLET (FP) PO SCH (09:38)
[2017-03-16 09:49] LABS: ANION GAP 7 (8-16); CO2 24 mmol/L (21-32); CREATININE 0.8 mg/dL (0.55-1.02); GLUCOSE,RANDOM 70 mg/dL (74-106)
[2017-03-16] MEDS ORDERED: SODIUM PHOSPHATE/NA BIPHOS 133 ML ENEMA PR ONE (11:02)
--- NOTE | 2017-03-16 15:32 | PN ---
Teaching Attending Note Name of Resident: Britton Shahid ATTENDING PHYSICIAN STATEMENT I saw and evaluated the patient. I reviewed the resident's note and discussed the case with the resident. I agree with the resident's findings and plan as documented. SUBJECTIVE: Feeling slightly better. OBJECTIVE: Vital Signs Temperature 98.1 F 03/16/17 09:48 Pulse Rate 85 03/16/17 09:48 Respiratory Rate 20 03/16/17 09:49 Blood Pressure 113/75 03/16/17 09:48 O2 Sat by Pulse Oximetry (%) 99 03/16/17 09:49 CBCD WBC 4.0 K/mm3 (4.0-10.0) 03/16/17 08:20 RBC 3.56 M/mm3 (3.60-5.2) L 03/16/17 08:20 Hgb 11.6 GM/dL (10.7-15.3) 03/16/17 08:20 Hct 34.1 % (32.4-45.2) 03/16/17 08:20 MCV 95.7 fl (80-96) 03/16/17 08:20 MCHC 33.9 g/dl (32.0-36.0) 03/16/17 08:20 RDW 15.0 % (11.6-15.6) 03/16/17 08:20 Plt Count 104 K/MM3 (134-434) L 03/16/17 08:20 MPV 8.7 fl (7.5-11.1) 03/16/17 08:20 CMP Sodium 139 mmol/L (136-145) 03/16/17 08:20 Potassium 4.0 mmol/L (3.5-5.1) 03/16/17 08:20 Chloride 108 mmol/L (98-107) H 03/16/17 08:20 Carbon Dioxide 24 mmol/L (21-32) 03/16/17 08:20 Anion Gap 7 (8-16) L 03/16/17 08:20 BUN 13 mg/dL (7-18) 03/16/17 08:20 Creatinine 0.8 mg/dL (0.55-1.02) 03/16/17 08:20 Creat Clearance w eGFR 56.00 (>60) 03/15/17 11:36 Random Glucose 70 mg/dL (74-106) L D 03/16/17 08:20 Calcium 8.0 mg/dL (8.5-10.1) L 03/16/17 08:20 Total Bilirubin 1.3 mg/dL (0.2-1.0) H D 03/15/17 11:36 AST 46 U/L (15-37) H 03/15/17 11:36 ALT 32 U/L (12-78) 03/15/17 11:36 Alkaline Phosphatase 232 U/L (45-117) H 03/15/17 11:36 Total Protein 7.6 g/dl (6.4-8.2) 03/15/17 11:36 Albumin 2.7 g/dl (3.4-5.0) L 03/15/17 11:36 CARDIAC ENZYMES Creatine Kinase 64 IU/L (26-192) 03/15/17 02:30 Troponin I < 0.02 ng/ml (0.00-0.05) 03/15/17 02:30 Home Medications Medication Instructions Recorded Morphine Sulfate 15 mg PO BID #0 tablet 01/24/14 Cyclobenzaprine HCl 10 tab PO BID 04/27/14 Gabapentin [Neurontin -] 300 mg PO Q8H 12/26/15 Ammonium Lactate Lotion 1 applic TP BID #1 bottle 08/27/16 [Lac-Hydrin 12] Abacavir/Dolutegravir/Lamivudi 1 each PO DAILY #30 tablet 12/17/16 [Triumeq Tablet] Albuterol 0.083% Nebulizer Aruna 1 neb PO PRN #90 amp MDD 4 12/17/16 [Ventolin 0.083% Nebulizer Soln -] Albuterol Sulfate Inhaler - 1 - 2 inh PO Q6H PRN #1 inhaler 12/17/16 [Ventolin HFA Inhaler -] Docusate Sodium [Colace -] 100 mg PO BID #60 capsule 12/17/16 Multivitamin [Poly-Vitamin] 1 each PO DAILY #30 tab.chew 12/17/16 Tiotropium [place] [Spiriva] 1 inh IH DAILY #1 inh 12/17/16 Valacyclovir HCl [Valtrex -] 500 mg PO DAILY #30 tablet 12/17/16 Current Medications Generic Name Dose Route Start Last Admin Trade Name Freq PRN Reason Stop Dose Admin Aclidinium [place] 1 puff 03/15/17 10:00 03/16/17 09:37 Tudorza - IH 1 puff BID TERRENCE Administration Albuterol Sulfate 2 puff 03/15/17 06:11 Ventolin Hfa Inhaler - IH Q6H PRN COUGH Albuterol Sulfate 1 puff 03/15/17 06:33 Ventolin Hfa Inhaler - IH Q6H PRN COUGH Albuterol Sulfate 1 amp 03/15/17 11:22 Ventolin 0.083% Nebulizer Soln - NEB Q6H PRN ASTHMA Cyclobenzaprine HCl 10 mg 03/15/17 10:00 03/16/17 09:36 Flexeril - PO 10 mg BID TERRENCE Administration Docusate Sodium 100 mg 03/15/17 10:00 03/16/17 09:36 Colace - PO 100 mg BID TERRENCE Administration Gabapentin 300 mg 03/15/17 06:15 03/16/17 15:02 Neurontin - PO 300 mg TID TERRENCE Administration Sodium Chloride 1,000 mls @ 125 mls/hr 03/15/17 06:15 03/16/17 15:00 Normal Saline - IV 125 mls/hr ASDIR TERRENCE Administration Lactic Acid 1 applic 03/15/17 10:00 03/16/17 09:37 Lac-Hydrin 12 TP 1 applic BID TERRENCE Administration Magnesium Hydroxide 30 ml 03/16/17 17:00 Milk Of Magnesia - PO 03/16/17 17:01 ONCE ONE Morphine Sulfate 4 mg 03/15/17 06:01 03/16/17 15:15 Morphine Injection - IVPUSH 4 mg Q4H PRN Administration PAIN Multivitamins/Minerals/Vitamin C 1 tab 03/15/17 10:00 03/16/17 09:36 Tab-A-Vit - PO 1 tab DAILY TERRENCE Administration Non-Formulary Medication 1 each 03/15/17 13:00 03/16/17 09:38 Abacavir/Dolutegravir/Lamivudi [Triumeq Tablet] PO 1 each DAILY TERRENCE Administration Ondansetron HCl 4 mg 03/15/17 10:00 03/16/17 09:36 Zofran Injection IVPUSH 4 mg DAILY TERRENCE Administration Valacyclovir HCl 500 mg 03/15/17 10:00 03/16/17 09:38 Valtrex - PO 500 mg DAILY TERRENCE Administration CT SCAN SHOWS CIRRHOSIS, ADENOPATHY AND SPLENOMEGALY. SHE HAS HAD A LIVER BIOPSY AND LYMPH NODE BIOPSY IN THE PAST. PE: per resident's note Abdome: diffuse abdominal pain. ASSESSMENT AND PLAN: Patient is a 61 YEAR OLD FEMALE HIV POSITIVE, SUBSTANCE ABUSE ,ALCOHOL abuse, hx of sarcoidosis presented to ED. with abdominal pain. THE WORKING # Abdominal pain syndrome: requiring IV morphine will discontinue for now since patient is severely constipated . Please do not give any Morphine at this time, continue Zofran if needed. Ct scan without any obstruction; Chronic liver disease, seen by and KUB was ordered. Discussed with who knows the patient but has not seen her for 3 years. 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 OK to continue ART as per ID DVT Px; SCDs
--- NOTE | 2017-03-16 16:01 | PN ---
Physical Exam: SUBJECTIVE: Patient seen and examined at bedside. Pt still complains of pain, but she is much more comfortable than yest. Pt has not had BM since being in the hospital. No other complaints. OBJECTIVE: Vital Signs Period Temp Pulse Resp BP Sys/Wade Pulse Ox Last 24 Hr 97.3 F 83 16 110/71 GENERAL: The patient is awake, alert, and fully oriented, in no apparent distress. HEAD: Normal with no signs of trauma. EYES: sclera anicteric, conjunctiva clear. No ptosis. ENT: oropharynx clear without exudates, moist mucous membranes. NECK: Trachea midline, full range of motion, supple. LUNGS: Breath sounds equal, clear to auscultation bilaterally, no wheezes, no crackles, no accessory muscle use. HEART: Regular rate and rhythm, S1, S2 without murmur, rub or gallop. ABDOMEN: Soft, nontender to palpation, nondistended, normoactive bowel sounds, no guarding, no rebound, no hepatosplenomegaly, no masses. EXTREMITIES: 2+ pulses, warm, well-perfused, no edema. NEUROLOGICAL: Cranial nerves II through XII grossly intact. Normal speech, gait not observed. PSYCH: Normal mood, normal affect. SKIN: Warm, dry, normal turgor, no rashes or lesions noted Active Medications Generic Name Dose Route Start Last Admin Trade Name Freq PRN Reason Stop Dose Admin Aclidinium [place] 1 puff 03/15/17 10:00 03/16/17 09:37 Tudorza - IH 1 puff BID TERRENCE Administration Albuterol Sulfate 2 puff 03/15/17 06:11 Ventolin Hfa Inhaler - IH Q6H PRN COUGH Albuterol Sulfate 1 puff 03/15/17 06:33 Ventolin Hfa Inhaler - IH Q6H PRN COUGH Albuterol Sulfate 1 amp 03/15/17 11:22 Ventolin 0.083% Nebulizer Soln - NEB Q6H PRN ASTHMA Cyclobenzaprine HCl 10 mg 03/15/17 10:00 03/16/17 09:36 Flexeril - PO 10 mg BID TERRENCE Administration Docusate Sodium 100 mg 03/15/17 10:00 03/16/17 09:36 Colace - PO 100 mg BID TERRENCE Administration Gabapentin 300 mg 03/15/17 06:15 03/16/17 15:02 Neurontin - PO 300 mg TID TERRENCE Administration Sodium Chloride 1,000 mls @ 125 mls/hr 03/15/17 06:15 03/16/17 15:00 Normal Saline - IV 125 mls/hr ASDIR TERRENCE Administration Lactic Acid 1 applic 03/15/17 10:00 03/16/17 09:37 Lac-Hydrin 12 TP 1 applic BID TERRENCE Administration Magnesium Hydroxide 30 ml 03/16/17 17:00 Milk Of Magnesia - PO 03/16/17 17:01 ONCE ONE Multivitamins/Minerals/Vitamin C 1 tab 03/15/17 10:00 03/16/17 09:36 Tab-A-Vit - PO 1 tab DAILY TERRENCE Administration Non-Formulary Medication 1 each 03/15/17 13:00 03/16/17 09:38 Abacavir/Dolutegravir/Lamivudi [Triumeq Tablet] PO 1 each DAILY TERRENCE Administration Ondansetron HCl 4 mg 03/15/17 10:00 03/16/17 09:36 Zofran Injection IVPUSH 4 mg DAILY TERRENCE Administration Valacyclovir HCl 500 mg 03/15/17 10:00 03/16/17 09:38 Valtrex - PO 500 mg DAILY TERRENCE Administration ASSESSMENT/PLAN: 61yo F with PMH of HIV, COPD admitted to observation for intractable abdominal pain. # Intractable abdominal pain - possibly musculoskeletal r/o splenomegaly/infection - pain control - NS @ 125 - Ab/Pelvic CT: splenomegaly. no explanation for abd pain -per GI, fleet enema. Pt is refusing # HIV -per ID, ok to restart HAART # LUIS ARMANDO - UA pos nitrites, 1+ LE, 58 RBC, 21 WBC - IVF # Thrombocytopenia - CBC thrombocytopenia - CMP minor lft derrangements stable from yest # FEN - Fluids: cont. NS - Electrolytes: wnl, cont. to monitor - Nutrition: npo # Prophylaxis - b/l SCDs #Dispo Admit to med/surg Visit type - Emergency Visit Emergency Visit: No - New Patient This patient is new to me today: No - Critical Care Critical Care patient: No - Discharge Referral Referred to [facility] Med [facility] No
--- NOTE | 2017-03-16 16:08 | PN ---
Progress Note, Physician History of Present Illness: C/O diffuse abdominal pain No c/o N/V Small BM since admission per nurse No F/C - Current Medication List Current Medications: Active Medications Aclidinium [place] (Tudorza -) 1 puff IH BID [facility] Last Admin: 03/16/17 09:37 Dose: 1 puff Albuterol Sulfate (Ventolin Hfa Inhaler -) 2 puff IH Q6H PRN PRN Reason: COUGH Albuterol Sulfate (Ventolin Hfa Inhaler -) 1 puff IH Q6H PRN PRN Reason: COUGH Albuterol Sulfate (Ventolin 0.083% Nebulizer Soln -) 1 amp NEB Q6H PRN PRN Reason: ASTHMA Cyclobenzaprine HCl (Flexeril -) 10 mg PO BID [facility] Last Admin: 03/16/17 09:36 Dose: 10 mg Docusate Sodium (Colace -) 100 mg PO BID [facility] Last Admin: 03/16/17 09:36 Dose: 100 mg Gabapentin (Neurontin -) 300 mg PO TID [facility] Last Admin: 03/16/17 15:02 Dose: 300 mg Sodium Chloride (Normal Saline -) 1,000 mls @ 125 mls/hr IV ASDIR [facility] Last Admin: 03/16/17 15:00 Dose: 125 mls/hr Lactic Acid (Lac-Hydrin 12) 1 applic TP BID [facility] Last Admin: 03/16/17 09:37 Dose: 1 applic Magnesium Hydroxide (Milk Of Magnesia -) 30 ml PO ONCE ONE Stop: 03/16/17 17:01 Multivitamins/Minerals/Vitamin C (Tab-A-Vit -) 1 tab PO DAILY [facility] Last Admin: 03/16/17 09:36 Dose: 1 tab Non-Formulary Medication (Abacavir/Dolutegravir/Lamivudi [Triumeq Tablet]) 1 each PO DAILY [facility] Last Admin: 03/16/17 09:38 Dose: 1 each Ondansetron HCl (Zofran Injection) 4 mg IVPUSH DAILY [facility] Last Admin: 03/16/17 09:36 Dose: 4 mg Valacyclovir HCl (Valtrex -) 500 mg PO DAILY [facility] Last Admin: 03/16/17 09:38 Dose: 500 mg - Objective Vital Signs: Vital Signs Temperature 97.3 F L 03/16/17 15:42 Pulse Rate 83 03/16/17 15:42 Respiratory Rate 16 03/16/17 15:42 Blood Pressure 110/71 03/16/17 15:42 O2 Sat by Pulse Oximetry (%) 99 03/16/17 09:49 Constitutional: Yes: No Distress Eyes: Yes: Conjunctiva Clear Cardiovascular: Yes: Regular Rate and Rhythm, S1, S2 Respiratory: Yes: CTA Bilaterally Gastrointestinal: Yes: Normal Bowel Sounds, Soft, Tenderness, Other (abdo distended, mild diffuse tenderness) Edema: No Assessment/Plan Abdominal pain syndrome Constipation HIV disease Laxatives/ enema GI follow up
[2017-03-16] MEDS ORDERED: MAGNESIUM HYDROX 2400MG/30ML ORAL SUSPENSION 30 ML CUP PO ONE (17:00)
[2017-03-16] MEDS: GLYCERIN 1 RECTAL SUPPOSITORY, ADULT RC ONE (23:05)
[2017-03-17] MEDS: ACETAMINOPHEN 500 MG TABLET (FP) PO PRN ×2 (02:28→15:16)
[2017-03-17] MEDS: GABAPENTIN 300 MG CAPSULE (FP) PO SCH ×2 (06:10→15:03)
[2017-03-17] MEDS: SODIUM CHLORIDE 1,000 ML IV SCH (06:19)
[2017-03-17 07:52] LABS: BASOPHIL 0.5 % (0-2.0); EOSINOPHIL 4.9 % (0-4.5); MCH 32.2 pg (25.7-33.7); MCHC 33.6 g/dl (32.0-36.0); MEAN CELL VOLUME 95.8 fl (80-96); MEAN PLT VOLUME 8.5 fl (7.5-11.1); NEUTROPHILS 60.6 % (42.8-82.8); PLATELET COUNT 118 K/MM3 (134-434); RDW 15.2 % (11.6-15.6)
[2017-03-17] MEDS: GLYCERIN 1 RECTAL SUPPOSITORY, ADULT RC ONE (08:21)
[2017-03-17 08:24] LABS: ALBUMIN 2.5 g/dl (3.4-5.0); ALK PHOS 205 U/L (45-117); ANION GAP 5 (8-16); BILIRUBIN,TOTAL 0.9 mg/dL (0.2-1.0); CALCIUM 7.9 mg/dL (8.5-10.1); CO2 26 mmol/L (21-32); GLUCOSE,RANDOM 95 mg/dL (74-106); SGOT/AST 42 U/L (15-37); SGPT/ALT 30 U/L (12-78); TOT PROT 7.1 g/dl (6.4-8.2)
[2017-03-17] MEDS: CYCLOBENZAPRINE HCL 10 MG TABLET (FP) PO SCH (10:00)
[2017-03-17] MEDS: MULTIVITAMINS (DAILY MVI) TABLET (FP) PO SCH (10:00)
[2017-03-17] MEDS: ONDANSETRON 4 MG/2 ML VIAL IVPUSH SCH (10:00)
[2017-03-17] MEDS: DOCUSATE SODIUM 100 MG CAPSULE (FP) PO SCH (10:01)
[2017-03-17] MEDS: AMMONIUM LACTATE 12% LOTION 225 GM BOTTLE TP SCH (10:01)
[2017-03-17] MEDS: valACYclovir HCL 500 MG TABLET (FP) PO SCH (10:01)
[2017-03-17] MEDS: ACLIDINIUM BROMIDE 400 MCG/INH AERO.POWD IH SCH (10:01)
[2017-03-17] MEDS ORDERED: LACTULOSE 20 GM/30 ML UDC (FOR ORAL USE ONLY) PO ONE (11:30)
--- NOTE | 2017-03-17 15:14 | PN ---
Teaching Attending Note Name of Resident: Britton Shahid ATTENDING PHYSICIAN STATEMENT I saw and evaluated the patient. I reviewed the resident's note and discussed the case with the resident. I agree with the resident's findings and plan as documented. SUBJECTIVE: cont to have abd pain, which she reports it is positional ( twisting her back, induces increased pain) . Has chronic back pain . OBJECTIVE: NAD CV: RRR. Lungs : CTAB Ext: no edema or erythema ABd: soft, TTP in RUQ , no rebound tenderenss or guarding . neg Brown's . Nl BS . ND MS : TTP over R lumbar and lower thoracic para-spinal muscles ASSESSMENT AND PLAN: 61 y/o lady with h/o granulomatous hepatitis , Alcohol abuse , s/p CCY, and HIV whopresneted with abd pain, she was found to be constipated . 1- Abd pain, likely due ot contipation . No evidence of obstruction on previous imaging this admission. Abd exam has no red flags . had one BM yesterday. gave lactulose today with resultant 4 BMs. advised to cont an aggressive Bowel regimen at home . 2- h/o granulomatous hepatitis : drug related Vs sarcoidosois . ALk phos and AST are chronically elevated. she needs f/u with Dr. More as out pt 3- LUIS ARMANDO : resolved 4- HIV : cont home meds dispo :DC home
[2017-03-17 15:57] VITALS: BP 118/73; PULSE 103; TEMP 97.6
--- NOTE | 2017-03-17 16:22 | PN ---
Progress Note (short form) - Note Progress Note: feels better today +BM less abdominal pain ready to go home Vital Signs Period Temp Pulse Resp BP Sys/Wade Pulse Ox Last 24 Hr 97.6 F-98.7 F 74-103 18-20 106-127/62-86 99-100 cor-rrr lungs clear abd soft,nt ext no edema CBC, BMP 03/17/17 07:00 03/17/17 07:00 Current Medications Acetaminophen (Tylenol -) 500 mg PO Q6H PRN PRN Reason: FEVER OR PAIN Last Admin: 03/17/17 15:16 Dose: 500 mg Aclidinium [place] (Tudorza -) 1 puff IH BID [facility] Last Admin: 03/17/17 10:01 Dose: 1 puff Albuterol Sulfate (Ventolin Hfa Inhaler -) 2 puff IH Q6H PRN PRN Reason: COUGH Albuterol Sulfate (Ventolin Hfa Inhaler -) 1 puff IH Q6H PRN PRN Reason: COUGH Albuterol Sulfate (Ventolin 0.083% Nebulizer Soln -) 1 amp NEB Q6H PRN PRN Reason: ASTHMA Cyclobenzaprine HCl (Flexeril -) 10 mg PO BID [facility] Last Admin: 03/17/17 10:00 Dose: 10 mg Docusate Sodium (Colace -) 100 mg PO BID [facility] Last Admin: 03/17/17 10:01 Dose: 100 mg Gabapentin (Neurontin -) 300 mg PO TID [facility] Last Admin: 03/17/17 15:03 Dose: 300 mg Lactic Acid (Lac-Hydrin 12) 1 applic TP BID [facility] Last Admin: 03/17/17 10:01 Dose: 1 applic Multivitamins/Minerals/Vitamin C (Tab-A-Vit -) 1 tab PO DAILY [facility] Last Admin: 03/17/17 10:00 Dose: 1 tab Non-Formulary Medication (Abacavir/Dolutegravir/Lamivudi [Triumeq Tablet]) 1 each PO DAILY [facility] Last Admin: 03/17/17 10:02 Dose: 1 each Ondansetron HCl (Zofran Injection) 4 mg IVPUSH DAILY [facility] Last Admin: 03/17/17 10:00 Dose: 4 mg Valacyclovir HCl (Valtrex -) 500 mg PO DAILY [facility] Last Admin: 03/17/17 10:01 Dose: 500 mg a/p abdominal pain due to constipation- resolved stable HIV granulomatous hepatatis- refuses steroids copd chronic back pain- pain management she should f/u with me at the [facility] after dscharge thanks!
--- NOTE | 2017-03-17 17:19 | PN ---
Progress Note (short form) - Note Progress Note: GASTROENTEROLOGY ABDOMINAL PAIN RESOLVED PAIN FROM CONSTIPATION/OBSTIPATION PLAN FOR DISCHARGE HIGH FIBER DIET, NO NARCOTICS, BENEFIBER BID AND MIRALAX EVERYDAY PATIENT NON COMPLIANT OUTPATIENT WITH VISITS CAN BE REFERRED TO [facility] OR [facility]IC NO OBJECTION TO DISCHARGE GRADY BHAT MD Problem List - Problems (1) Abdominal pain Code(s): R10.9 - UNSPECIFIED ABDOMINAL PAIN (2) Granulomatous hepatitis Code(s): K75.3 - GRANULOMATOUS HEPATITIS, NOT ELSEWHERE CLASSIFIED (3) Sarcoidosis Code(s): D86.9 - SARCOIDOSIS, UNSPECIFIED (4) Abnormal LFTs (liver function tests) Code(s): R79.89 - OTHER SPECIFIED ABNORMAL FINDINGS OF BLOOD CHEMISTRY (5) HIV (human immunodeficiency virus infection) Code(s): Z21 - ASYMPTOMATIC HUMAN IMMUNODEFICIENCY VIRUS INFECTION STATUS
--- NOTE | 2017-03-17 17:31 | DS ---
Physical Exam: SUBJECTIVE: Patient seen and examined at bedside. Pt has had multiple BM since yesterday. No other complaints. OBJECTIVE: Vital Signs Period Temp Pulse Resp BP Sys/Wade Pulse Ox Last 24 Hr 97.6 F-98.7 F 74-103 18-20 106-127/62-86 99-100 PHYSICAL EXAM GENERAL: The patient is awake, alert, and fully oriented, in no acute distress. HEAD: Normal with no signs of trauma. Right Vivas's palsy EYES: PERRL, extraocular movements intact, sclera anicteric, conjunctiva clear. ENT: oropharynx clear without exudates, moist mucous membranes. NECK: Trachea midline, full range of motion, supple. LUNGS: Breath sounds equal, clear to auscultation bilaterally, no wheezes, no crackles, no accessory muscle use. HEART: Regular rate and rhythm, S1, S2 without murmur, rub or gallop. ABDOMEN: Soft, nontender, nondistended, normoactive bowel sounds, no guarding, no rebound, no hepatosplenomegaly, no masses. EXTREMITIES: 2+ pulses, warm, well-perfused, no edema. NEUROLOGICAL: Cranial nerves II through XII grossly intact. Normal speech, gait not observed. PSYCH: Normal mood, normal affect. SKIN: Warm, dry, normal turgor, no rashes or lesions noted. LABS Laboratory Results - last 24 hr 03/17/17 03/17/17 07:00 07:00 WBC 4.0 RBC 3.62 Hgb 11.7 Hct 34.7 MCV 95.8 MCH 32.2 MCHC 33.6 RDW 15.2 Plt Count 118 L MPV 8.5 Neutrophils % 60.6 Lymphocytes % 25.7 Monocytes % 8.3 Eosinophils % 4.9 H D Basophils % 0.5 Sodium 142 Potassium 3.6 Chloride 111 H Carbon Dioxide 26 Anion Gap 5 L BUN 10 D Creatinine 1.0 D Creat Clearance w eGFR 56.00 Random Glucose 95 D Calcium 7.9 L Total Bilirubin 0.9 D AST 42 H ALT 30 Alkaline Phosphatase 205 H Total Protein 7.1 Albumin 2.5 L HOSPITAL COURSE: Date of Admission:03/16/17 Date of Discharge: 03/17/17 61yo F with PMH of HIV, COPD admitted to observation for intractable abdominal pain. Intractable abdominal pain was ultimately determined to be primarily due to constipation. Extensive labs and imaging workup failed to elucidate another cause for her pain. Pt's history is consistent with constipations as her only BMs were hard and sparse. Pt was given laxatives which resolved her constipation. She is being sent home with a more aggressive bowel regimen. The pt received her HAART therapy. The patient came in with LUIS ARMANDO which resolved with IVF. She had a UA suggestive of UTI, but was asymptomatic. The pt has chronic thrombocytopenia which was reflected in her labs. This issue is stable. The patient is stable for discharge. Minutes to complete discharge: 45 Discharge Summary Reason For Visit: ABDOMINAL PAIN Current Active Problems Abdominal pain (Acute) Constipation (Acute) Sarcoidosis (Chronic) Condition: Good - Instructions Diet, Activity, Other Instructions: You need to follow up with the following doctors: Dr. Green, primary care Dr. Graham, gastroenterology Dr. Alfaro, infectious diseases You are being sent home with the following medications in addition to your home medications: -Senna -Colace -Miralaax -Suppositories Please take these medications as directed for constipation. It is important that you follow up with your doctors and take your medications as directed. If you develop new symptoms or if your symptoms worsen, please return to the emergency department. Referrals: Phong Alfaro MD [Staff Physician] - 1 Week Ronnie Green MD [Primary Care Provider] - 1 Week Prashant Graham MD [Staff Physician] - 1 Week Disposition: HOME - Home Medications Comprehensive Discharge Medication List: Ambulatory Orders Morphine Sulfate 15 mg PO BID #0 tablet 01/24/14 Cyclobenzaprine HCl 10 tab PO BID 04/27/14 Gabapentin [Neurontin -] 300 mg PO Q8H 12/26/15 Ammonium Lactate Lotion [Lac-Hydrin 12] 1 applic TP BID #1 bottle 08/27/16 Abacavir/Dolutegravir/Lamivudi [Triumeq Tablet] 1 each PO DAILY #30 tablet 12/17 Albuterol 0.083% Nebulizer Aruna [Ventolin 0.083% Nebulizer Soln -] 1 neb PO PRN # 90 amp MDD 4 12/17/16 Albuterol Sulfate Inhaler - [Ventolin HFA Inhaler -] 1 - 2 inh PO Q6H PRN #1 inhaler 12/17/16 Docusate Sodium [Colace -] 100 mg PO BID #60 capsule 12/17/16 Multivitamin [Poly-Vitamin] 1 each PO DAILY #30 tab.chew 12/17/16 Tiotropium [place] [Spiriva] 1 inh IH DAILY #1 inh 12/17/16 Valacyclovir HCl [Valtrex -] 500 mg PO DAILY #30 tablet 12/17/16 Albuterol Sulfate Inhaler - [Ventolin HFA Inhaler -] 1 puff IH Q6H PRN #0 inhaler 03/17/17 Glycerin [Suppository] 1 each RC DAILY PRN #20 supp.rect 03/17/17 Polyethylene Glycol 3350 [Miralax (For Daily Use) -] 17 gm PO BID #1 bottle 04/25 Sennosides [Senna -] 1 tab PO DAILY #20 tablet 03/17/17 This patient is new to me today: Yes Date on this admission: 03/17/17 Emergency Visit: No Critical Care patient: No - Discharge Referral Referred to [facility] No
== END 2017-03-17 19:18 | disposition home health service (06) | DRG 392 ==
LOC: JER 01:31 → JERBED 05:59 → J5S 09:30 → OBSVTOIN 03-16 12:34
PROVIDERS: ADMIT Internal Medicine; ATTEND Internal Medicine
DX: K59.09 Other constipation (principal); N17.9 Acute kidney failure, unspecified; J44.9 Chronic obstructive pulmonary disease, unspecified; M54.5 Low back pain; R10.32 Left lower quadrant pain; D69.6 Thrombocytopenia, unspecified; D86.89 Sarcoidosis of other sites; R79.89 Other specified abnormal findings of blood chemistry; K75.3 Granulomatous hepatitis, not elsewhere classified; F10.10 Alcohol abuse, uncomplicated; Z21 Asymptomatic human immunodeficiency virus [HIV] infection status
CPT/HCPCS: 36415; 71020-TC; 74020-TC; 74177-TC; 76775-TC; 80048; 80053; 81003; 81015; 83605; 83615; 83690; 84484; 85025; 85027; 93005; 93010; 99284-25; G0378

== ENCOUNTER 2017-06-24 11:59 | Inpatient (IN) | payer OTHER ==
--- NOTE | 2017-06-24 12:11 | PDOC ---
History of Present Illness - General Chief Complaint: Respiratory Stated Complaint: Respiratory Time Seen by Provider: 06/24/17 12:11 History Source: Patient - History of Present Illness Initial Comments: 06/24/17 12:28 Patient is a 61 y.o. 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 Patient notes she became short of breath yesterday while cleaning and it largely resolved with rest. Patient again became short of breath with exertion today while ambulating to her doctor' s office. Patient denies any associated cough, fevers, sore throat or rhinorrhea. Patient further denies any sick contacts or recent travel. Of note, patient had a cholecystectomy in 2012 at which time she was placed on a ventilator. Allergies: Zoysyn, Vancomycin Surgical: Cholecystectomy w/respiratory complications (2012) PMD: Dr. Nolasco Past History - Past Medical History Allergies/Adverse Reactions: Allergies Allergy/AdvReac Type Severity Reaction Status Date / Time piperacillin sodium Allergy Mild Itching Verified 06/24/17 12:20 [From Zosyn] tazobactam sodium Allergy Mild Itching Verified 06/24/17 12:20 [From Zosyn] vancomycin AdvReac Intermediate Difficulty Verified 06/24/17 12:20 Breathing lactose-intolerance AdvReac Unknown Uncoded 06/24/17 12:20 Home Medications: Ambulatory Orders Abacavir/Dolutegravir/Lamivudi [Triumeq Tablet] 1 each PO DAILY 06/24/17 Albuterol 0.083% Nebulizer Aruna [Ventolin 0.083%] 1 neb NEB PRN PRN 06/24/17 Albuterol Sulfate Inhaler - [Ventolin Hfa Inhaler -] 1 inh PO Q6H PRN 06/24/17 Ammonium Lactate Lotion [Lac-Hydrin 12% Lotion -] 1 applic TP BID 06/24/17 Clotrimazole [Lotrimin 1% Solution -] 1 applic TP BID 06/24/17 Cyclobenzaprine HCl [Flexeril 10 mg] 10 mg PO BID 06/24/17 Docusate Sodium [Colace -] 100 mg PO BID 06/24/17 Gabapentin 300 mg PO Q8H 06/24/17 Glycerin Suppository Adult - 1 each RC DAILY PRN 06/24/17 Morphine *Sr* [Ms Contin -] 15 mg PO BID 06/24/17 Multivitamin with Minerals [Icaps Plus] 1 each PO DAILY 06/24/17 Polyethylene Glycol 3350 [Gavilax] 17 gm PO DAILY 06/24/17 Sennosides [Senna -] 1 tab PO DAILY 06/24/17 Tiotropium [place] [Spiriva] 1 inh IH DAILY 06/24/17 Valacyclovir HCl [Valtrex -] 500 mg PO DAILY 06/24/17 Anemia: Yes (hemolytic anema 2011) Asthma: Yes Cancer: No Cardiac Disorders: No CVA: No COPD: Yes CHF: No Dementia: No Diabetes: Yes GI Disorders: Yes (granulomatous hepatitis) Disorders: No HTN: No Hypercholesterolemia: No Kidney Stones: No Liver Disease: Yes Psychiatric Problems: Yes (Seen for depression in 1998 when diagnosed HIV+) Seizures: No Thyroid Disease: No Other medical history: SARCOIDOSIS. CHRONIC BACK PAIN. NEUROPATHY. - Surgical History Abdominal Surgery: Yes (ectopic in 1986, TUBAL LIGATION) Appendectomy: No Cardiac Surgery: No Cholecystectomy: Yes (GB SX) Lung Surgery: No Neurologic Surgery: No Orthopedic Surgery: No - Reproductive History PID: No - Suicide/Smoking/Psychosocial Hx Smoking Status: Yes (QUIT 05/2012) Smoking History: Former smoker Years of Tobacco Use: 30 Have you smoked in the past 12 months: No Number of Cigarettes Smoked Daily: 5 If you are a former smoker, when did you quit?: 2000 Cigars Per Day: 0 Information on smoking cessation initiated: No 'Breaking Loose' booklet given: 12/21/11 Hx Alcohol Use: No Drug/Substance Use Hx: No Substance Use Type: None Hx Substance Use Treatment: Yes Review of Systems - Review of Systems Constitutional: No: Chills, Fever Respiratory: Yes: SOB with Exertion, Wheezing. No: Cough, Stridor, Productive cough, Hemoptysis Cardiac (ROS): No: Chest Pain, Edema, Lightheadedness, Chest Tightness, Other ABD/GI: No: Constipated, Nausea, Vomiting, Abdominal cramping *Physical Exam - Vital Signs Last Vital Signs Temp Pulse Resp BP Pulse Ox 97.8 F 90 18 89/62 90 L 06/24/17 12:02 06/24/17 12:02 06/24/17 12:02 06/24/17 12:02 06/24/17 12:02 - Physical Exam General Appearance: Yes: Nourished, Appropriately Dressed HEENT: positive: Other (R sided facial droop - likely 2/2 to chronic Vivas's Palsy) Respiratory/Chest: positive: Wheezing (Minimal B/L wheezing ), Other (Patient saturating at 94% on 2 L NC). negative: Accessory Muscle Use, Labored Respiration Cardiovascular: positive: S1, S2. negative: Edema, Murmur Gastrointestinal/Abdominal: positive: Soft. 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 As patient has signficant pulmonary history concern moderate clinical suspicion for PE (Wells 0, non-tachycardic however hypoxic) vs. COPD exacerbation vs. respiratory compromise 2/2 to untreated Sarcoidosis. CXR shows no interval change; VS significant for hypotension (80's/60's) PLAN: 1. CBC, CMP 2. IV Solumedrol + Duo-Nebs x2 3. 500 mL IV NS Reassess 06/24/17 16:45 Patient remains hypotensive (90's/60's) s/p gentle hydration additional 500 mL; Patient breathing comfortably (no accessory muscle use, non-labored respirations ) on 2 L NC, given patient's increased O2 demand (not on home O2) patient to be admitted to hospitalist (admits for patient's PCP, Rivera) for observation and further evaluation. *DC/Admit/Observation/Transfer Diagnosis at time of Disposition: COPD exacerbation - Discharge Dispostion Condition at time of disposition: Fair Admit: Yes - Referrals - Patient Instructions - Post Discharge Activity
[2017-06-24] MEDS ORDERED: ALBUTEROL SO4 2.5/IPRATROPIUM 0.5 INH SOL 3 ML VIAL.NEB. NEB ONE ×6 (12:27→19:57)
[2017-06-24] MEDS ORDERED: SODIUM CHLORIDE 0.9% 1000 ML INFUS.BAG IV ONE (12:47)
[2017-06-24] MEDS ORDERED: methylPREDNISolone NA SUCC 125 MG/2 ML VIAL IVPUSH ONE (12:55)
[2017-06-24] MEDS ORDERED: methylPREDNISolone NA SUCC 125 MG/2 ML VIAL ONE ×2 (13:25→13:46)
[2017-06-24 14:12] LABS: BASOPHIL 0.6 % (0-2.0); EOSINOPHIL 2.7 % (0-4.5); MCH 31.2 pg (25.7-33.7); MCHC 32.6 g/dl (32.0-36.0); MEAN CELL VOLUME 95.8 fl (80-96); MEAN PLT VOLUME 8.9 fl (7.5-11.1); PLATELET COUNT 120 K/MM3 (134-434); RDW 15.9 % (11.6-15.6); WHITE BLOOD COUNT 5.9 K/mm3 (4.0-10.0)
[2017-06-24 14:22] LABS: ALBUMIN 2.9 g/dl (3.4-5.0); ANION GAP 8 (8-16); CALCIUM 8.3 mg/dL (8.5-10.1); CO2 27 mmol/L (21-32); CREATININE 1.1 mg/dL (0.55-1.02); GLUCOSE,RANDOM 102 mg/dL (74-106); SGPT/ALT 28 U/L (12-78)
[2017-06-24 14:25] LABS: ALK PHOS 183 U/L (45-117); CPK 99 IU/L (26-192); TROPONIN I < 0.02 ng/ml (0.00-0.05)
[2017-06-24 14:26] LABS: SGOT/AST 45 U/L (15-37)
[2017-06-24] MEDS ORDERED: GLYCERIN 1 RECTAL SUPPOSITORY, ADULT RC PRN (16:31)
[2017-06-24] MEDS ORDERED: ACETAMINOPHEN 1000 MG/100 ML VIAL (NON FORMULARY) IVPB ONE (16:34)
--- NOTE | 2017-06-24 16:39 | HP ---
CHIEF COMPLAINT: dyspnea at rest PCP: Dr. Nolasco ID: Dr. Herndon HISTORY OF PRESENT ILLNESS: Patient is a 61 year old female with a significant 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 She was sent to the ER from her infectious disease office after patient became hypoxic and saturations in the low 80s on room air. Patient denies any coughing , fever, chills or sick contacts. Patient states that she became short of breath yesterday while cleaning her home and with ambulation but her symptoms resolved with rest. She became short of breath again when ambulating to her physician office and notes that she still feels short of breath with any physical exertion. Patient denies any associated cough, fevers, sore throat or rhinorrhea. Patient further denies any sick contacts. In the ER she was also noted to be hypotensive and IV fluids were initiated. She received IV Solumedrol 125mg x 1 in the ED and two nebulizer treatments. A chest xray was performed which shows normal cardiac silhouette, mild perihilar increased lung markings, left apical pleural thickening. No evidence of acute lung disease. ER course was notable for: (1) Solumedrol IV 125mg, duonebs x 2 (2) Hypotension requiring initiation of IVF (3) Chest xray as above Recent Travel: denies PAST MEDICAL HISTORY: as noted above PAST SURGICAL HISTORY: cholecystectomy in 2012 Social History: Smoking: states she is a casual smoker, does not smoke daily Alcohol: denies Drugs: denies Family History: Allergies piperacillin sodium [From Zosyn] Allergy (Mild, Verified 06/24/17 12:20) Itching tazobactam sodium [From Zosyn] Allergy (Mild, Verified 06/24/17 12:20) Itching vancomycin Adverse Reaction (Intermediate, Verified 06/24/17 12:20) Difficulty Breathing lactose-intolerance Adverse Reaction (Unknown, Uncoded 06/24/17 12:20) HOME MEDICATIONS: Home Medications Medication Instructions Recorded Abacavir/Dolutegravir/Lamivudi 1 each PO DAILY 06/24/17 [Triumeq Tablet] Albuterol 0.083% Nebulizer Aruna 1 neb NEB PRN PRN 06/24/17 [Ventolin 0.083%] Albuterol Sulfate Inhaler - 1 inh PO Q6H PRN 06/24/17 [Ventolin Hfa Inhaler -] Ammonium Lactate Lotion 1 applic TP BID 06/24/17 [Lac-Hydrin 12% Lotion -] Clotrimazole [Lotrimin 1% Solution 1 applic TP BID 06/24/17 -] Cyclobenzaprine HCl [Flexeril 10 10 mg PO BID 06/24/17 mg] Docusate Sodium [Colace -] 100 mg PO BID 06/24/17 Gabapentin 300 mg PO Q8H 06/24/17 Glycerin Suppository Adult - 1 each RC DAILY PRN 06/24/17 Morphine *Sr* [Ms Contin -] 15 mg PO BID 06/24/17 Multivitamin with Minerals [Icaps 1 each PO DAILY 06/24/17 Plus] Polyethylene Glycol 3350 [Gavilax] 17 gm PO DAILY 06/24/17 Sennosides [Senna -] 1 tab PO DAILY 06/24/17 Tiotropium [place] [Spiriva] 1 inh IH DAILY 06/24/17 Valacyclovir HCl [Valtrex -] 500 mg PO DAILY 06/24/17 REVIEW OF SYSTEMS CONSTITUTIONAL: Absent: fever, chills, diaphoresis, generalized weakness, malaise, loss of appetite, weight change HEENT: Absent: rhinorrhea, nasal congestion, throat pain, throat swelling, difficulty swallowing, mouth swelling, ear pain, eye pain, visual changes CARDIOVASCULAR: Absent: chest pain, syncope, palpitations, irregular heart rate, lightheadedness , peripheral edema RESPIRATORY: Absent: stridor, hemoptysis GASTROINTESTINAL: Absent: abdominal pain, abdominal distension, nausea, vomiting, diarrhea, constipation, melena, hematochezia GENITOURINARY: Absent: dysuria, frequency, urgency, hesitancy, hematuria, flank pain, genital pain MUSCULOSKELETAL: Absent: myalgia, arthralgia, joint swelling, back pain, neck pain SKIN: Absent: rash, itching, pallor HEMATOLOGIC/IMMUNOLOGIC: Absent: easy bleeding, easy bruising, lymphadenopathy, frequent infections ENDOCRINE: Absent: unexplained weight gain, unexplained weight loss, heat intolerance, cold intolerance NEUROLOGIC: Absent: headache, focal weakness or paresthesias, dizziness, unsteady gait, seizure, mental status changes, bladder or bowel incontinence PSYCHIATRIC: Absent: anxiety, depression, suicidal or homicidal ideation, hallucinations. PHYSICAL EXAMINATION Vital Signs - 24 hr 06/24/17 06/24/17 06/24/17 12:02 12:42 15:02 Temperature 97.8 F 98.2 F Pulse Rate 90 90 Pulse Rate [ 68 Left Apical] Respiratory 18 16 16 Rate Blood Pressure 89/62 Blood Pressure 89/69 92/61 [Right Arm] O2 Sat by Pulse 90 L 95 95 Oximetry (%) GENERAL: Awake, alert, and fully oriented, in mild respiratory distress HEAD: Normal with no signs of trauma, right facial droop, Eagle palsy EYES: Pupils equal, round and reactive to light, extraocular movements intact, sclera anicteric, conjunctiva clear. No lid lag. EARS, NOSE, THROAT: Ears normal, nares patent, oropharynx clear without exudates. Moist mucous membranes. NECK: Normal range of motion, supple without lymphadenopathy, JVD, or masses. LUNGS: Scattered expiratory wheezing auscultated in all lung locke HEART: Regular rate and rhythm, 80s ABDOMEN: Soft, mildly distended, + bowel sounds MUSCULOSKELETAL: Normal range of motion at all joints. No bony deformities or tenderness. No CVA tenderness. UPPER EXTREMITIES: 2+ pulses, warm, well-perfused. No cyanosis. No clubbing. No peripheral edema. LOWER EXTREMITIES: 2+ pulses, warm, well-perfused. No calf tenderness. No peripheral edema. NEUROLOGICAL: Normal speech. Normal gait. PSYCHIATRIC: Cooperative. Good eye contact. Appropriate mood and affect. SKIN: Warm, dry, normal turgor, no rashes or lesions noted, normal capillary refill. Laboratory Results - last 24 hr 06/24/17 06/24/17 14:00 14:00 WBC 5.9 RBC 4.25 Hgb 13.3 Hct 40.7 MCV 95.8 MCH 31.2 MCHC 32.6 RDW 15.9 H Plt Count 120 L MPV 8.9 Neutrophils % 55.0 Lymphocytes % 33.0 Monocytes % 8.7 Eosinophils % 2.7 Basophils % 0.6 Sodium 144 Potassium 3.7 Chloride 109 H Carbon Dioxide 27 Anion Gap 8 BUN 13 D Creatinine 1.1 H Creat Clearance w eGFR 50.17 Random Glucose 102 Calcium 8.3 L Total Bilirubin 1.0 AST 45 H ALT 28 Alkaline Phosphatase 183 H Creatine Kinase 99 CK-MB (CK-2) < 1.000 Troponin I < 0.02 Total Protein 8.0 Albumin 2.9 L ASSESSMENT/PLAN: Patient is a 61 year old female with a significant 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 She was sent to the ER from her infectious disease office after patient became hypoxic and saturations in the low 80s on room air. Patient denies any coughing , fever, chills or sick contacts. Patient states that she became short of breath yesterday while cleaning her home and with ambulation but her symptoms resolved with rest. She became short of breath again when ambulating to her physician office and notes that she still feels short of breath with any physical exertion. Patient denies any associated cough, fevers, sore throat or rhinorrhea. She denies chest pain. Patient further denies any sick contacts. In the ER she was also noted to be hypotensive and IV fluids were initiated. She received IV Solumedrol 125mg x 1 in the ED and two nebulizer treatments. A chest xray was performed which shows normal cardiac silhouette, mild perihilar increased lung markings, left apical pleural thickening. No evidence of acute lung disease. Pulmonary: Shortness of breath, acute Acute COPD exacerbation vs. Sarcoidosis flare vs. PE Solumedrol 40mg IV q6 Albuterol q6 scheduled Supplemental oxygen @2 liters Advair Vascular study Pulmonary consulted ID: HIV +/immunocompromised Blood/urine cultures ordered Continue home medications Consult patient's ID physician Cardiology: Shortness of breath, acute Trend troponins to rule out ACS Echo ordered Hypotension, acute NS @ 83cc/hr Monitor BP F.E.N. Fluids: NS @ 100cc/hr Electrolytes: monitor Nutrition: regular diet Prophylaxis: DVT: heparin TID GI: Protonix Disposition: full code.
[2017-06-24] MEDS ORDERED: GABAPENTIN 300 MG CAPSULE (FP) PO SCH (16:45)
[2017-06-24] MEDS: ALBUTEROL SO4 2.5/IPRATROPIUM 0.5 INH SOL 3 ML VIAL.NEB. NEB SCH ×2 (17:01→22:46)
[2017-06-24] MEDS: SODIUM CHLORIDE 1,000 ML IV SCH (17:02)
[2017-06-24] MEDS ORDERED: GABAPENTIN 100 MG CAPSULE (FP) ONE (17:02)
[2017-06-24] MEDS: methylPREDNISolone NA SUCC 125 MG/2 ML VIAL IVPB SCH ×2 (17:03→21:50)
[2017-06-24] MEDS ORDERED: ACETAMINOPHEN INJECTION 100 ML IVPB ONE (17:12)
[2017-06-24] MEDS: FLUTICASONE/SALMETEROL 100 MCG/50 MCG DISKUS IH SCH ×2 (18:05→23:24)
[2017-06-24] MEDS ORDERED: CYCLOBENZAPRINE HCL 10 MG TABLET (FP) ONE (19:55)
[2017-06-24] MEDS ORDERED: HEPARIN NA (PORCINE) 5,000 UNITS/ML 1ML VIAL ONE (19:56)
[2017-06-24] MEDS ORDERED: DOCUSATE SODIUM 100 MG CAPSULE (FP) PO ONE (19:56)
[2017-06-24] MEDS ORDERED: morphine SO4 SUSTAINED ACTING 15 MG TABLET.SA ONE (19:56)
[2017-06-24] MEDS ORDERED: methylPREDNISolone NA SUCC 40 MG/1 ML VIAL ONE (19:57)
[2017-06-24] MEDS: DOCUSATE SODIUM 100 MG CAPSULE (FP) PO SCH (21:48)
[2017-06-24] MEDS: morphine SO4 SUSTAINED ACTING 15 MG TABLET.SA PO SCH (21:48)
[2017-06-24] MEDS: CYCLOBENZAPRINE HCL 10 MG TABLET (FP) PO SCH (21:48)
[2017-06-24] MEDS: CLOTRIMAZOLE 1%TOPICAL SOLUTION 30 ML BOTTLE TP SCH (21:48)
[2017-06-24] MEDS: HEPARIN NA (PORCINE) 5,000 UNITS/ML 1ML VIAL SQ SCH (21:48)
[2017-06-24 22:22] VITALS: BMI 26.7
[2017-06-25] MEDS: methylPREDNISolone NA SUCC 40 MG/1 ML VIAL IVPUSH SCH ×4 (02:40→15:03)
[2017-06-25] MEDS: GABAPENTIN 300 MG CAPSULE (FP) PO SCH ×3 (05:20→21:31)
[2017-06-25] MEDS: ALBUTEROL SO4 2.5/IPRATROPIUM 0.5 INH SOL 3 ML VIAL.NEB. NEB SCH ×2 (06:25→11:02)
[2017-06-25 08:18] LABS: MCH 31.4 pg (25.7-33.7); MCHC 32.7 g/dl (32.0-36.0); MEAN CELL VOLUME 95.8 fl (80-96); MEAN PLT VOLUME 9.7 fl (7.5-11.1); PLATELET COUNT 94 K/MM3 (134-434); RDW 15.5 % (11.6-15.6); WHITE BLOOD COUNT 5.9 K/mm3 (4.0-10.0)
[2017-06-25 08:46] LABS: ANION GAP 8 (8-16); CO2 23 mmol/L (21-32); GLUCOSE,RANDOM 215 mg/dL (74-106); MAGNESIUM 1.8 mg/dL (1.8-2.4)
[2017-06-25] MEDS ORDERED: PT OWN MED DRAWER 7, Y5N ONE (09:31)
--- NOTE | 2017-06-25 09:46 | CONSULT ---
Consultation: Pulmonary,resident REQUESTING PROVIDER: Armani Mendoza MANAGER IMMUNOLOGY CONSULT REQUEST: We have been asked to medically evaluate this patient for hypoxemia . HISTORY OF PRESENT ILLNESS: Patient is a 61 year old female with a significant 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 She was sent to the ER from her infectious disease office after patient became hypoxic and saturations in the low 80s on room air. Patient denies any coughing , fever, chills or sick contacts. Patient states that she became short of breath yesterday while cleaning her home and with ambulation but her symptoms resolved with rest. She became short of breath again when ambulating to her physician office and notes that she still feels short of breath with any physical exertion. Patient denies any associated cough, fevers, sore throat or rhinorrhea. Patient further denies any sick contacts. In the ER she was also noted to be hypotensive and IV fluids were initiated. She received IV Solumedrol 125mg x 1 in the ED and two nebulizer treatments. A chest xray was performed which shows normal cardiac silhouette, mild perihilar increased lung markings, left apical pleural thickening. No evidence of acute lung disease. ER course was notable for: (1) Solumedrol IV 125mg, duonebs x 2 (2) Hypotension requiring initiation of IVF (3) Chest xray as above REVIEW OF SYSTEMS: CONSTITUTIONAL: Absent: fever, chills, diaphoresis, generalized weakness, malaise, loss of appetite, weight change HEENT: Absent: rhinorrhea, nasal congestion, throat pain, throat swelling, difficulty swallowing, mouth swelling, ear pain, eye pain, visual changes CARDIOVASCULAR: Absent: chest pain, syncope, palpitations, irregular heart rate, lightheadedness , peripheral edema RESPIRATORY: Absent: cough, shortness of breath, dyspnea with exertion, orthopnea, wheezing, stridor, hemoptysis GASTROINTESTINAL: Absent: abdominal pain, abdominal distension, nausea, vomiting, diarrhea, constipation, melena, hematochezia GENITOURINARY: Absent: dysuria, frequency, urgency, hesitancy, hematuria, flank pain, genital pain MUSCULOSKELETAL: Absent: myalgia, arthralgia, joint swelling, back pain, neck pain SKIN: Absent: rash, itching, pallor HEMATOLOGIC/IMMUNOLOGIC: Absent: easy bleeding, easy bruising, lymphadenopathy, frequent infections ENDOCRINE: Absent: unexplained weight gain, unexplained weight loss, heat intolerance, cold intolerance NEUROLOGIC: Absent: headache, focal weakness or paresthesias, dizziness, unsteady gait, seizure, mental status changes, bladder or bowel incontinence PSYCHIATRIC: Absent: anxiety, depression, suicidal or homicidal ideation, hallucinations. PHYSICAL EXAMINATION Vital Signs - 24 hr 06/24/17 06/24/17 06/24/17 12:02 12:42 15:02 Temperature 97.8 F 98.2 F Pulse Rate 90 90 Pulse Rate [ 68 Left Apical] Respiratory 18 16 16 Rate Blood Pressure 89/62 Blood Pressure 89/69 92/61 [Right Arm] O2 Sat by Pulse 90 L 95 95 Oximetry (%) 06/24/17 06/24/17 06/24/17 17:51 18:29 22:14 Temperature 98.0 F 98.2 F Pulse Rate 78 Pulse Rate [ 95 H 80 Left Apical] Respiratory 16 16 20 Rate Blood Pressure 106/71 Blood Pressure 115/69 113/79 [Right Arm] O2 Sat by Pulse 94 L 100 Oximetry (%) 06/24/17 06/25/17 06/25/17 22:23 02:00 05:00 Temperature 97.9 F 98.0 F Pulse Rate 91 H 94 H Pulse Rate [ Left Apical] Respiratory 16 16 Rate Blood Pressure 114/62 111/54 Blood Pressure [Right Arm] O2 Sat by Pulse 97 Oximetry (%) 06/25/17 06/25/17 07:12 07:59 Temperature 98.1 F Pulse Rate 83 Pulse Rate [ Left Apical] Respiratory 18 18 Rate Blood Pressure 94/59 Blood Pressure [Right Arm] O2 Sat by Pulse 97 Oximetry (%) GENERAL: Awake, alert, and fully oriented, in no acute distress. HEAD: Normal with no signs of trauma. EYES: Pupils equal, round and reactive to light, extraocular movements intact, sclera anicteric, conjunctiva clear. No lid lag. EARS, NOSE, THROAT: Ears normal, nares patent, oropharynx clear without exudates. Moist mucous membranes. NECK: Normal range of motion, supple without lymphadenopathy, JVD, or masses. LUNGS: Breath sounds equal, clear to auscultation bilaterally. No wheezes, and no crackles. No accessory muscle use. HEART: Regular rate and rhythm, normal S1 and S2 without murmur, rub or gallop. ABDOMEN: Soft, nontender, not distended, normoactive bowel sounds, no guarding, no rebound, no masses. No hepatomegaly or splenomegaly. MUSCULOSKELETAL: Normal range of motion at all joints. No bony deformities or tenderness. No CVA tenderness. UPPER EXTREMITIES: 2+ pulses, warm, well-perfused. No cyanosis. No clubbing. Cap refill <2 seconds. No peripheral edema. LOWER EXTREMITIES: 2+ pulses, warm, well-perfused. No calf tenderness. No peripheral edema. NEUROLOGICAL: Cranial nerves II-XII intact. Normal speech. Normal gait. PSYCHIATRIC: Cooperative. Good eye contact. Appropriate mood and affect. SKIN: Warm, dry, normal turgor, no rashes or lesions noted. Laboratory Results - last 24 hr 06/24/17 06/24/17 06/24/17 14:00 14:00 20:25 WBC 5.9 RBC 4.25 Hgb 13.3 Hct 40.7 MCV 95.8 MCH 31.2 MCHC 32.6 RDW 15.9 H Plt Count 120 L MPV 8.9 Neutrophils % 55.0 Lymphocytes % 33.0 Monocytes % 8.7 Eosinophils % 2.7 Basophils % 0.6 Sodium 144 Potassium 3.7 Chloride 109 H Carbon Dioxide 27 Anion Gap 8 BUN 13 D Creatinine 1.1 H Creat Clearance w eGFR 50.17 Random Glucose 102 Calcium 8.3 L Magnesium Total Bilirubin 1.0 AST 45 H ALT 28 Alkaline Phosphatase 183 H Creatine Kinase 99 CK-MB (CK-2) < 1.000 Troponin I < 0.02 < 0.02 Total Protein 8.0 Albumin 2.9 L 06/25/17 06/25/17 06/25/17 02:00 07:30 07:30 WBC 5.9 RBC 3.65 Hgb 11.5 D Hct 35.0 MCV 95.8 MCH 31.4 MCHC 32.7 RDW 15.5 Plt Count 94 L D MPV 9.7 Neutrophils % Lymphocytes % Monocytes % Eosinophils % Basophils % Sodium 140 Potassium 4.2 Chloride 109 H Carbon Dioxide 23 Anion Gap 8 BUN 15 Creatinine 1.0 Creat Clearance w eGFR Random Glucose 215 H D Calcium 8.0 L Magnesium 1.8 Total Bilirubin AST ALT Alkaline Phosphatase Creatine Kinase CK-MB (CK-2) Troponin I < 0.02 Total Protein Albumin Active Medications Generic Name Dose Route Start Last Admin Trade Name Freq PRN Reason Stop Dose Admin Albuterol/Ipratropium 1 amp 06/24/17 16:45 06/25/17 06:25 Duoneb - NEB 06/25/17 10:46 1 amp Q6H TERRENCE Administration Clotrimazole 1 applic 06/24/17 22:00 06/24/17 21:48 Lotrimin 1% Solution - TP 5,000 units BID TERRENCE Administration Cyclobenzaprine HCl 10 mg 06/24/17 22:00 06/24/17 21:48 Flexeril - PO 10 mg BID TERRENCE Administration Docusate Sodium 100 mg 06/24/17 22:00 06/24/17 21:48 Colace - PO 100 mg BID TERRENCE Administration Gabapentin 300 mg 06/24/17 22:51 06/25/17 05:20 Neurontin - PO 300 mg TID TERRENCE Administration Glycerin 1 each 06/24/17 16:31 Glycerin Suppository Adult - RC DAILY PRN CONSTIPATION Heparin Sodium (Porcine) 5,000 unit 06/24/17 22:00 06/24/17 21:48 Heparin - SQ 5,000 unit BID TERRENCE Administration Sodium Chloride 1,000 mls @ 83 mls/hr 06/24/17 16:45 06/24/17 17:02 Normal Saline - IV 83 mls/hr ASDIR TERRENCE Administration Methylprednisolone Sodium Succinate 40 mg 06/24/17 22:51 06/25/17 09:37 Solu-Medrol - IVPUSH 40 mg Q6H-IV TERRENCE Administration Morphine Sulfate 15 mg 06/24/17 22:00 06/24/17 21:48 Ms Contin - PO 15 mg BID TERRENCE Administration Multivitamins/Minerals 1 each 06/25/17 10:00 Theragran-M PO DAILY TERRENCE Non-Formulary Medication 1 each 06/25/17 10:00 Abacavir/Dolutegravir/Lamivudi [Triumeq Tablet] PO DAILY TERRENCE Polyethylene Glycol 17 gm 06/25/17 10:00 Miralax (For Daily Use) - PO DAILY TERRENCE Fluticasone/Salmeterol 1 puff 06/24/17 16:45 06/24/17 23:24 Advair 100mcg/50mcg - IH 1 puff BID TERRENCE Administration Senna 1 tab 06/25/17 10:00 Senna - PO DAILY [facility] Tiotropium [place] 1 puff 06/25/17 10:00 Spiriva - IH DAILY [facility] Valacyclovir HCl 500 mg 06/25/17 10:00 Valtrex - PO DAILY [facility] CBC, BMP 06/25/17 07:30 06/25/17 07:30 ASSESSMENT/PLAN: #Acute Hypoxic respiratory failure 2/2 Asthma/copd excaerbation vs Sarcoidosis vs PE vs Pneumonia # Asthma /COPD #HIV ID on the board, continue home meds # Hypotension Iv fluids started in ED, Cardiac Echo, continue to monitor Plan : CXR consioder CT chest Solumedrol IV Duoneb O2 to kep O2 sat >90 % Incentive spirometry Albuterol inhaler Spiriva Dispo: We will continue to follow the patient. Thank you for this consultative opportunity.
[2017-06-25] MEDS ORDERED: PATIENT'S OWN MEDICATION (NON-FORMULARY) (Multivitamin With Minerals [Icaps Plus] 1 EACH) PO SCH (10:00)
[2017-06-25] MEDS ORDERED: PATIENT'S OWN MEDICATION (NON-FORMULARY) (Polyethylene Glycol 3350 [Gavilax] 17 GM) PO SCH (10:00)
--- NOTE | 2017-06-25 10:02 | EKG ---
Test Reason : Blood Pressure : / mmHG Vent. Rate : 084 BPM Atrial Rate : 084 BPM P-R Int : 176 ms QRS Dur : 100 ms QT Int : 408 ms P-R-T Axes : 063 -08 058 degrees QTc Int : 482 ms NORMAL SINUS RHYTHM NORMAL ECG WHEN COMPARED WITH ECG OF 24-JUN-2017 12:10, CRITERIA FOR ANTERIOR INFARCT ARE NO LONGER PRESENT Confirmed by COSTA CRUMP MD [id number]) on 06/25/2017 10:02:24 AM Referred By: Confirmed By:COSTA CRUMP MD
[2017-06-25 10:10] LABS: URINE APPEARANCE SLCLOUDY; URINE BILIRUBIN NEGATIVE (NEGATIVE); URINE BLOOD NEGATIVE (NEGATIVE); URINE COLOR DKYELLOW; URINE GLUCOSE (UA) 3+ (NEGATIVE); URINE KETONE NEGATIVE (NEGATIVE); URINE NITRITE POSITIVE (NEGATIVE); URINE PROTEIN NEGATIVE (NEGATIVE); URINE UROBILINOGEN NEGATIVE mg/dL (0.2-1.0)
[2017-06-25 10:22] LABS: URINE BACTERIA RARE /hpf (NONE SEEN); URINE HYALINE CAST 1 /lpf; URINE MUCUS RARE; URINE RBC 1; URINE WBC 6
[2017-06-25] MEDS: CYCLOBENZAPRINE HCL 10 MG TABLET (FP) PO SCH ×2 (10:46→21:31)
[2017-06-25] MEDS: SENNOSIDES 8.6MG TABLET (FP) PO SCH (10:46)
[2017-06-25] MEDS: HEPARIN NA (PORCINE) 5,000 UNITS/ML 1ML VIAL SQ SCH ×2 (10:46→21:32)
[2017-06-25] MEDS: MULTIVITAMINS THER W-MINERALS COMBO TABLET (FP) PO SCH (10:46)
[2017-06-25] MEDS: morphine SO4 SUSTAINED ACTING 15 MG TABLET.SA PO SCH ×2 (10:46→21:30)
[2017-06-25] MEDS: DOCUSATE SODIUM 100 MG CAPSULE (FP) PO SCH ×2 (10:46→21:31)
--- NOTE | 2017-06-25 10:51 | PN ---
Physical Exam: SUBJECTIVE: Patient seen and examined. States she feels much better. tolerating room air. OBJECTIVE: hyperglycemia 2/2 steriods, bgm ac/hs Hypotension improving, continue IVF CT scan of chest now Monitor platelets Glycosuria without symptoms, started on Novolog Vital Signs Period Temp Pulse Resp BP Sys/Wade Pulse Ox Last 24 Hr 97.8 F-98.2 F 68-95 16-20 89-115/54-79 90-100 GENERAL: Awake, alert, and fully oriented, in mild respiratory distress HEAD: Normal with no signs of trauma, right facial droop, Torrey palsy EYES: Pupils equal, round and reactive to light, extraocular movements intact, sclera anicteric, conjunctiva clear. No lid lag. EARS, NOSE, THROAT: Ears normal, nares patent, oropharynx clear without exudates. Moist mucous membranes. NECK: Normal range of motion, supple without lymphadenopathy, JVD, or masses. LUNGS: Mild wheezing opnly on anterior right upper lobe, posterior lungs sound diminished HEART: Regular rate and rhythm, 80s ABDOMEN: Soft, mildly distended, + bowel sounds MUSCULOSKELETAL: Normal range of motion at all joints. No bony deformities or tenderness. No CVA tenderness. UPPER EXTREMITIES: 2+ pulses, warm, well-perfused. No cyanosis. No clubbing. No peripheral edema. LOWER EXTREMITIES: 2+ pulses, warm, well-perfused. No calf tenderness. No peripheral edema. NEUROLOGICAL: Normal speech. Normal gait. PSYCHIATRIC: Cooperative. Good eye contact. Appropriate mood and affect. SKIN: Warm, dry, normal turgor, no rashes or lesions noted, normal capillary refill. Laboratory Results - last 24 hr 06/24/17 06/24/17 06/24/17 09:09 14:00 14:00 WBC 5.9 RBC 4.25 Hgb 13.3 Hct 40.7 MCV 95.8 MCH 31.2 MCHC 32.6 RDW 15.9 H Plt Count 120 L MPV 8.9 Neutrophils % 55.0 Lymphocytes % 33.0 Monocytes % 8.7 Eosinophils % 2.7 Basophils % 0.6 Sodium 144 Potassium 3.7 Chloride 109 H Carbon Dioxide 27 Anion Gap 8 BUN 13 D Creatinine 1.1 H Creat Clearance w eGFR 50.17 Random Glucose 102 Hemoglobin A1c % Calcium 8.3 L Magnesium Total Bilirubin 1.0 AST 45 H ALT 28 Alkaline Phosphatase 183 H Creatine Kinase 99 CK-MB (CK-2) < 1.000 Troponin I < 0.02 Total Protein 8.0 Albumin 2.9 L Urine Color Dkyellow Urine Appearance Slcloudy Urine pH 5.0 Ur Specific Apison 1.028 Urine Protein Negative Urine Glucose (UA) 3+ H Urine Ketones Negative Urine Blood Negative Urine Nitrite Positive Urine Bilirubin Negative Urine Urobilinogen Negative 06/24/17 06/25/17 06/25/17 20:25 02:00 07:30 WBC 5.9 RBC 3.65 Hgb 11.5 D Hct 35.0 MCV 95.8 MCH 31.4 MCHC 32.7 RDW 15.5 Plt Count 94 L D MPV 9.7 Neutrophils % Lymphocytes % Monocytes % Eosinophils % Basophils % Sodium Potassium Chloride Carbon Dioxide Anion Gap BUN Creatinine Creat Clearance w eGFR Random Glucose Hemoglobin A1c % Calcium Magnesium Total Bilirubin AST ALT Alkaline Phosphatase Creatine Kinase CK-MB (CK-2) Troponin I < 0.02 < 0.02 Total Protein Albumin Urine Color Urine Appearance Urine pH Ur Specific Apison Urine Protein Urine Glucose (UA) Urine Ketones Urine Blood Urine Nitrite Urine Bilirubin Urine Urobilinogen 06/25/17 06/25/17 07:30 09:15 WBC RBC Hgb Hct MCV MCH MCHC RDW Plt Count MPV Neutrophils % Lymphocytes % Monocytes % Eosinophils % Basophils % Sodium 140 Potassium 4.2 Chloride 109 H Carbon Dioxide 23 Anion Gap 8 BUN 15 Creatinine 1.0 Creat Clearance w eGFR Random Glucose 215 H D Hemoglobin A1c % 5.0 D Calcium 8.0 L Magnesium 1.8 Total Bilirubin AST ALT Alkaline Phosphatase Creatine Kinase CK-MB (CK-2) Troponin I Total Protein Albumin Urine Color Urine Appearance Urine pH Ur Specific [place]ison Urine Protein Urine Glucose (UA) Urine Ketones Urine Blood Urine Nitrite Urine Bilirubin Urine Urobilinogen Active Medications Generic Name Dose Route Start Last Admin Trade Name Freq PRN Reason Stop Dose Admin Clotrimazole 1 applic 06/24/17 22:00 06/24/17 21:48 Lotrimin 1% Solution - TP 5,000 units BID TERRENCE Administration Cyclobenzaprine HCl 10 mg 06/24/17 22:00 06/25/17 10:46 Flexeril - PO 10 mg BID TERRENCE Administration Docusate Sodium 100 mg 06/24/17 22:00 06/25/17 10:46 Colace - PO 100 mg BID TERRENCE Administration Gabapentin 300 mg 06/24/17 22:51 06/25/17 05:20 Neurontin - PO 300 mg TID TERRENCE Administration Glycerin 1 each 06/24/17 16:31 Glycerin Suppository Adult - RC DAILY PRN CONSTIPATION Heparin Sodium (Porcine) 5,000 unit 06/24/17 22:00 06/25/17 10:46 Heparin - SQ 5,000 unit BID TERRENCE Administration Sodium Chloride 1,000 mls @ 83 mls/hr 06/24/17 16:45 06/24/17 17:02 Normal Saline - IV 83 mls/hr ASDIR TERRENCE Administration Insulin Aspart 1 vial 06/25/17 11:00 Novolog Vial Sliding Scale - SQ ACHS TERRENCE Protocol Methylprednisolone Sodium Succinate 40 mg 06/24/17 22:51 06/25/17 09:37 Solu-Medrol - IVPUSH 40 mg Q6H-IV TERRENCE Administration Morphine Sulfate 15 mg 06/24/17 22:00 06/25/17 10:46 Ms Contin - PO 15 mg BID TERRENCE Administration Multivitamins/Minerals 1 each 06/25/17 10:00 06/25/17 10:46 Theragran-M PO 1 each DAILY TERRENCE Administration Non-Formulary Medication 1 each 06/25/17 10:00 Abacavir/Dolutegravir/Lamivudi [Triumeq Tablet] PO DAILY TERRENCE Polyethylene Glycol 17 gm 06/25/17 10:00 Miralax (For Daily Use) - PO DAILY TERRENCE Fluticasone/Salmeterol 1 puff 06/24/17 16:45 06/24/17 23:24 Advair 100mcg/50mcg - IH 1 puff BID TERRENCE Administration Senna 1 tab 06/25/17 10:00 06/25/17 10:46 Senna - PO 1 tab DAILY TERRENCE Administration Tiotropium Susan 1 puff 06/25/17 10:00 Spiriva - IH DAILY TERRENCE Valacyclovir HCl 500 mg 06/25/17 10:00 Valtrex - PO DAILY TERRENCE ASSESSMENT/PLAN: Patient is a 61 year old female with a significant 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 She was sent to the ER from her infectious disease office after patient became hypoxic and saturations in the low 80s on room air. Patient denies any coughing , fever, chills or sick contacts. Patient states that she became short of breath yesterday while cleaning her home and with ambulation but her symptoms resolved with rest. She became short of breath again when ambulating to her physician office and notes that she still feels short of breath with any physical exertion. Patient denies any associated cough, fevers, sore throat or rhinorrhea. She denies chest pain. Patient further denies any sick contacts. In the ER she was also noted to be hypotensive and IV fluids were initiated. She received IV Solumedrol 125mg x 1 in the ED and two nebulizer treatments. A chest xray was performed which shows normal cardiac silhouette, mild perihilar increased lung markings, left apical pleural thickening. No evidence of acute lung disease. Imaging: CT/Chest CT w/o contrast 06/25/2017: scarring and cystic changes seen in apical segment of the left upper lobe with linear like platelike atelectasis/scarring in the right lung base. Diffuse heterogenous attenuation of the liver with a lobulated contours and multiple patchy areas of ill defined low attenuation density likely on the basis of previously described cirrhosis. Echocardiogram 06/25/2017: LV systolic fx normal, The transmitral spectral doppler flow pattern suggestive of impaired LV relaxation, trace to mild MR, mild TR, No pericardial effusion. Vascular study 06/25/2017: negative for DVT Pulmonary: Shortness of breath, improving Acute COPD exacerbation vs. Sarcoidosis flare vs. PE Solumedrol 40mg IV q6 Albuterol q6 scheduled Supplemental oxygen @2 liters, titrate down as needed Advair Vascular study negative Pulmonary following Cardiology: Shortness of breath, improving Tolerating room air Troponins negative x 3 Echo as above Hypotension, likely secondary to dehydration NS @ 83cc/hr, wean off as tolerated Monitor BP ID: HIV +/immunocompromised Blood/urine cultures pending Continue home antivirals medications ID physician to follow Endocrine: Hyperglycemia in the setting of IV steroid therapy With glycosuria without symptoms BGMs, Novolog Hgma1c 5.0 F.E.N. Fluids: NS @ 100cc/hr Electrolytes: monitor Nutrition: regular diet Prophylaxis: DVT: heparin BID GI: Protonix Disposition: full code. Visit type - Emergency Visit Emergency Visit: Yes ED Registration Date: 06/25/17 Care time: The patient presented to the Emergency Department on the above date and was hospitalized for further evaluation of their emergent condition. - New Patient This patient is new to me today: No - Critical Care Critical Care patient: No - Discharge Referral Referred to [facility] No
[2017-06-25] MEDS: FLUTICASONE/SALMETEROL 100 MCG/50 MCG DISKUS IH SCH ×2 (11:02→22:05)
[2017-06-25] MEDS: CLOTRIMAZOLE 1%TOPICAL SOLUTION 30 ML BOTTLE TP SCH ×2 (11:04→21:56)
[2017-06-25] MEDS: POLYETHYLENE GLYCOL 3350 119 GM BTL PO SCH (11:06)
[2017-06-25] MEDS: TIOTROPIUM BROMIDE 18 MCG/INH (DEVICE W/ 5 CAPSULES) IH SCH (11:07)
[2017-06-25] MEDS: valACYclovir HCL 500 MG TABLET (FP) PO SCH (11:07)
[2017-06-25] MEDS: INSULIN SLIDING SCALE (NOVOLOG) 1 VIAL SQ SCH ×3 (12:11→21:37)
--- NOTE | 2017-06-25 14:49 | PN ---
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 no signs of pulmonary infection hiv- stable, daughter will bring in meds she can f/u with me as an outpt at the [facility] when ready for discharge Problem List - Problems (1) COPD exacerbation Code(s): J44.1 - CHRONIC OBSTRUCTIVE PULMONARY DISEASE W (ACUTE) EXACERBATION (2) HIV (human immunodeficiency virus infection) Code(s): Z21 - ASYMPTOMATIC HUMAN IMMUNODEFICIENCY VIRUS INFECTION STATUS
--- NOTE | 2017-06-25 15:05 | PN ---
Teaching Attending Note Name of Resident: Jose Ventura ATTENDING PHYSICIAN STATEMENT I saw and evaluated the patient. I reviewed the resident's note and discussed the case with the resident. I agree with the resident's findings and plan as documented. SUBJECTIVE: FEELS FINE OBJECTIVE:HAD DESATURATION AND WHEEZES OUTPATIENT KNOWN CASE OF SARCOID AND CAVITARY LUNG DISEASE WILL ADJUST MEDS/RECHECK SPO2 PRE/POST AMB/DISCONTINUE SYSTEMIC STEROIDS CONTINUE JOHANNY/LABA/ICS WILL FOLLOW Quinten JOHNSON MD
[2017-06-25] MEDS: SODIUM CHLORIDE 1,000 ML IV SCH (17:00)
--- NOTE | 2017-06-25 18:08 | CONS ---
DATE OF CONSULTATION: 06/25/2017 INFECTIOUS DISEASE CONSULTATION REQUESTING PHYSICIAN: Hospitalist service. HISTORY OF PRESENT ILLNESS: This is a 61-year-old woman who came to the [facility] yesterday where I saw her. She had come both to see me and to see the dentist. She was diffusely wheezing which she attributed to the change in weather. No fever or chills, no cough. She had used her inhaler that morning and uses her Spiriva daily. She had no chest pain, otherwise felt well and has no fever or chills. Her pulse oximetry in the clinic was 89%. She received her treatment, continue to have wheezing and hypoxia and was referred to the emergency room. PAST MEDICAL HISTORY: Is notable for history of hemolytic anemia in 2011, asthma, COPD. She had Legionella pneumonia in 2008. She had cavitary pneumonia in 2012. She has been AFB negative the whole time. 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 She has a history of renal failure in the past that resolved. She is HIV positive. She has hepatitis C which she has cleared with undetectable viral load. She has received blood transfusions in the past. PAST SURGICAL HISTORY: Notable for ectopic in 1986. She had a cholecystectomy and tubal ligation as well as tonsillectomy. She had a VATS procedure and several lymph node biopsies all of which have been inconclusive. FAMILY HISTORY: Notable for heart disease in her mother and cancer in her father. SOCIAL HISTORY: She lives with her daughter. There is no history of any cigarette use. There is no recent substance use. ALLERGIES: PIPERACILLIN, TAZOBACTAM, VANCOMYCIN, LACTOSE INTOLERANT. MEDICATIONS: At home include: Morphine sulfate, cyclobenzaprine, gabapentin, Valacyclovir, Albuterol inhaler, senna, Triumeq/Ventolin inhaler, Lac-Hydrin lotion, clotrimazole lotion, Colace, vitamins, MiraLAX, and Spiriva. PHYSICAL EXAMINATION: General: She is currently resting comfortably. Vital Signs: Temperature 98.3, pulse 109, blood pressure 127/66, respiratory rate 18. She is currently off oxygen and looks comfortable. HEENT: Normocephalic. Eyes are anicteric. Neck: Supple. Lungs: Currently are clear to auscultation. Heart: Regular rate and rhythm. Abdomen: Soft, nontender. There is a palpable liver edge. Extremities: Without edema. LABORATORY DATA: Notable for a white count of 5.9, hemoglobin 11.5, platelets 94,000. BUN 15, creatinine 1, glucose 215. Hemoglobin A1c is 5. Alkaline phosphatase is 183. Troponins are negative. She so far had a chest x-ray which is unchanged from prior. She had a CAT scan of her chest that shows no gross enlargement mediastinal or hilar nodes. She has some scarring and cystic changes in the left upper lobe, unchanged from prior CAT scan in 2015. There is no discrete focal infiltrate. She has evidence of liver cirrhosis and splenomegaly. She had duplex of her legs as well that shows no DVT. IMPRESSION AND RECOMMENDATIONS: In summary this is 61-year-old woman with stable HIV, granulomatous hepatitis, possible sarcoid COPD, chronic low back pain, admitted with recent hypoxia that did not improve in clinic. 1. I suspect she has a COPD exacerbation. Awaiting evaluation from pulmonary. She does not tolerate steroids well, gives her glucose intolerance. Discussed with Dr. Mendoza, perhaps a rapid taper of steroids. Would switch to inhaled steroids if he thinks this is reasonable. She has no signs of pulmonary infection. 2. HIV stable. Her daughter will bring in her medications. She can follow up with me as an outpatient at the [facility] when ready for discharge. NOEL SINGH M.D. [id number]
[2017-06-25 20:21] LABS: URINE LEUK ESTERASE Negative (NEGATIVE)
[2017-06-25] MEDS ORDERED: INSULIN (NOVOLOG) ASPART 100 UNITS/ML 10ML VIAL ONE (21:36)
[2017-06-26] MEDS: SODIUM CHLORIDE 1,000 ML IV SCH (02:39)
[2017-06-26] MEDS: GABAPENTIN 300 MG CAPSULE (FP) PO SCH ×3 (06:03→21:54)
[2017-06-26] MEDS: INSULIN SLIDING SCALE (NOVOLOG) 1 VIAL SQ SCH ×4 (06:23→22:01)
[2017-06-26 07:46] LABS: BASOPHIL 0.3 % (0-2.0); EOSINOPHIL 0.4 % (0-4.5); MCH 31.1 pg (25.7-33.7); MCHC 32.3 g/dl (32.0-36.0); MEAN CELL VOLUME 96.1 fl (80-96); MEAN PLT VOLUME 9.5 fl (7.5-11.1); NEUTROPHILS 69.8 % (42.8-82.8); PLATELET COUNT 130 K/MM3 (134-434); RDW 15.6 % (11.6-15.6); WHITE BLOOD COUNT 12.6 K/mm3 (4.0-10.0)
[2017-06-26 08:25] LABS: ALBUMIN 2.8 g/dl (3.4-5.0); ANION GAP 9 (8-16); BILIRUBIN,TOTAL 0.8 mg/dL (0.2-1.0); CALCIUM 8.1 mg/dL (8.5-10.1); CO2 23 mmol/L (21-32); CREATININE 1.1 mg/dL (0.55-1.02); GLUCOSE,RANDOM 100 mg/dL (74-106); SGOT/AST 35 U/L (15-37); SGPT/ALT 30 U/L (12-78); TOT PROT 7.9 g/dl (6.4-8.2)
[2017-06-26 08:26] LABS: ALK PHOS 160 U/L (45-117)
[2017-06-26] MEDS ORDERED: PT OWN MED DRAWER 7, Y5N ONE ×3 (09:24→21:48)
[2017-06-26] MEDS: POLYETHYLENE GLYCOL 3350 119 GM BTL PO SCH (09:28)
[2017-06-26] MEDS: MULTIVITAMINS THER W-MINERALS COMBO TABLET (FP) PO SCH (09:28)
[2017-06-26] MEDS: CYCLOBENZAPRINE HCL 10 MG TABLET (FP) PO SCH ×2 (09:28→21:53)
[2017-06-26] MEDS: SENNOSIDES 8.6MG TABLET (FP) PO SCH (09:28)
[2017-06-26] MEDS: DOCUSATE SODIUM 100 MG CAPSULE (FP) PO SCH ×2 (09:28→21:53)
[2017-06-26] MEDS: morphine SO4 SUSTAINED ACTING 15 MG TABLET.SA PO SCH ×2 (09:29→21:54)
[2017-06-26] MEDS: TIOTROPIUM BROMIDE 18 MCG/INH (DEVICE W/ 5 CAPSULES) IH SCH (09:30)
[2017-06-26] MEDS: FLUTICASONE/SALMETEROL 100 MCG/50 MCG DISKUS IH SCH ×2 (09:31→21:53)
[2017-06-26] MEDS: CLOTRIMAZOLE 1%TOPICAL SOLUTION 30 ML BOTTLE TP SCH ×2 (09:39→21:54)
[2017-06-26] MEDS: valACYclovir HCL 500 MG TABLET (FP) PO SCH (09:40)
[2017-06-26] MEDS ORDERED: ABACAVIR SULFATE 300 MG TABLET PO SCH (10:30)
[2017-06-26] MEDS: HEPARIN NA (PORCINE) 5,000 UNITS/ML 1ML VIAL SQ SCH ×2 (10:49→21:53)
[2017-06-26] MEDS ORDERED: lamiVUDine 150 MG TABLET PO SCH (11:00)
[2017-06-26] MEDS ORDERED: DOLUTEGRAVIR SODIUM 50 MG TABLET PO SCH (11:00)
[2017-06-26] MEDS ORDERED: INSULIN (NOVOLOG) ASPART 100 UNITS/ML 10ML VIAL ONE ×2 (11:21→22:00)
[2017-06-26] MEDS: ABACAVIR PO SCH (11:40)
[2017-06-26] MEDS: [UNRECOGNIZED DRUG - OTHER] PO SCH (11:40)
--- NOTE | 2017-06-26 13:49 | PN ---
Progress Note (short form) - Note Progress Note: PULMONARY VSS/AFEBRILE ANICTERIC/FACIAL PALSY CHRONIC SCATTERED WHEEZE S1S2 BS+ NO EDEMA LABS/MEDS/NOTES/IMAGES REVIEWED SARCOID GRANULOMATOUS LIVER DISEASE COPD HIV+ CONTINUE ICS/LABA/JOHANNY DVT PROPHYLAXSIS Quinten JOHNSON MD
--- NOTE | 2017-06-26 18:04 | PN ---
Physical Exam: SUBJECTIVE: Patient seen and examined. She states to feeling well, she has some R shoulder pain with deep inspiration. OBJECTIVE: Vital Signs Period Temp Pulse Resp BP Sys/Wade Pulse Ox Last 24 Hr 97.6 F-98.2 F 80-101 16-22 99-125/63-85 96-96 PE Neuro: alert, awake, L sided facial droop (hx bells palsy) Pulm: basilar rhonchi, no wheezing, no sob CV: S1 s2 rrr Abd: s nt nd + bs Ext: Warm no le edema Laboratory Results - last 24 hr 06/26/17 06/26/17 06/26/17 06:45 06:45 11:02 WBC 12.6 H D RBC 3.98 Hgb 12.4 Hct 38.3 MCV 96.1 H MCH 31.1 MCHC 32.3 RDW 15.6 Plt Count 130 L D MPV 9.5 Neutrophils % 69.8 D Lymphocytes % 23.0 D Monocytes % 6.5 Eosinophils % 0.4 D Basophils % 0.3 Sodium 142 Potassium 4.4 Chloride 110 H Carbon Dioxide 23 Anion Gap 9 BUN 16 Creatinine 1.1 H Creat Clearance w eGFR 50.17 POC Glucometer 175 Random Glucose 100 D Calcium 8.1 L Total Bilirubin 0.8 AST 35 D ALT 30 Alkaline Phosphatase 160 H Total Protein 7.9 Albumin 2.8 L Ur Leukocyte Esterase Active Medications Generic Name Dose Route Start Last Admin Trade Name Freq PRN Reason Stop Dose Admin Clotrimazole 1 applic 06/24/17 22:00 06/26/17 09:39 Lotrimin 1% Solution - TP Not Given BID TERRENCE Cyclobenzaprine HCl 10 mg 06/24/17 22:00 06/26/17 09:28 Flexeril - PO 10 mg BID TERRENCE Administration Docusate Sodium 100 mg 06/24/17 22:00 06/26/17 09:28 Colace - PO 100 mg BID TERRENCE Administration Gabapentin 300 mg 06/24/17 22:51 06/26/17 13:27 Neurontin - PO 300 mg TID TERRENCE Administration Glycerin 1 each 06/24/17 16:31 Glycerin Suppository Adult - RC DAILY PRN CONSTIPATION Heparin Sodium (Porcine) 5,000 unit 06/24/17 22:00 06/26/17 10:49 Heparin - SQ 5,000 unit BID TERRENCE Administration Sodium Chloride 1,000 mls @ 83 mls/hr 06/24/17 16:45 06/26/17 02:39 Normal Saline - IV 83 mls/hr ASDIR TERRENCE Administration Insulin Aspart 1 vial 06/25/17 11:00 06/26/17 16:35 Novolog Vial Sliding Scale - SQ Not Given ACHS TERRENCE Protocol Morphine Sulfate 15 mg 06/24/17 22:00 06/26/17 09:29 Ms Contin - PO 15 mg BID TERRENCE Administration Multivitamins/Minerals 1 each 06/25/17 10:00 06/26/17 09:28 Theragran-M PO 1 each DAILY TERRENCE Administration Abacavir 600mg/ 1 each 06/26/17 14:00 06/26/17 11:40 Dolutegravir 50mg/ PO 1 each Lamivudine 300mg ( DAILY TERRENCE Administration Triumeq) Tablet (Pt' s Own) Polyethylene Glycol 17 gm 06/25/17 10:00 06/26/17 09:28 Miralax (For Daily Use) - PO 17 grams DAILY TERRENCE Administration Fluticasone/Salmeterol 1 puff 06/24/17 16:45 06/26/17 09:31 Advair 100mcg/50mcg - IH 1 puff BID TERRENCE Administration Senna 1 tab 06/25/17 10:00 06/26/17 09:28 Senna - PO 1 tab DAILY TERRENCE Administration Tiotropium [place] 1 puff 06/25/17 10:00 06/26/17 09:30 Spiriva - IH 1 puff DAILY TERRENCE Administration Valacyclovir HCl 500 mg 06/25/17 10:00 06/26/17 09:40 Valtrex - PO 500 mg DAILY TERRENCE Administration Microbiology 06/24/17 16:42 Blood Culture - Preliminary Blood - Peripheral Venous NO GROWTH OBTAINED AFTER 48 HOURS, INCUBATION TO CONTINUE FOR 3 DAYS. 06/24/17 16:42 Blood Culture - Preliminary Blood - Peripheral Venous NO GROWTH OBTAINED AFTER 48 HOURS, INCUBATION TO CONTINUE FOR 3 DAYS. 06/25/17 10:10 MRSA Screen - Final Nares - Mrsa Screen - Left NO MRSA ISOLATED 06/25/17 10:10 MRSA Screen - Final Nares - Mrsa Screen - Right NO MRSA ISOLATED 06/24/17 09:09 Urine Culture - Preliminary Urine - Urine Clean Catch Lactose Fermenting Neg Bacilli 06/25/17 14:30 Influenza Types A,B Antigen (JENNIFER) - Final Nasopharyngeal Swab - Final Imaging: ECHO 06/25/2017: nml LVSF, impaired LV relaxation, mild MR, TR CT chest 06/25/2017: scarring and cystic changes seen in apical segment of the left upper lobe with linear like platelike atelectasis/scarring in the right lung base. Diffuse heterogenous attenuation of the liver with a lobulated contours and multiple patchy areas of ill defined low attenuation density likely on the basis of previously described cirrhosis. Assessment: 61 year old female with pmhx Vivas's Palsy (diagnosed at the age of 9), HIV+ (CD 400), COPD and Sarcoidosis admitted for hypoxia, sob, jesus, hypotension. Plan: 1. Acute COPD exacerbation vs. Sarcoidosis flare vs. PE - Off IV medrol, monitor response - Continue with spirivia, advair 2. UTI - Ur cx lfnb - Asymptomatic,will hold on treatment at this time -d/w ID 3. Hypotension - Improved - Stop fluids 4. HIV + - Continue home HAART meds 5 Hyperglycemia - Due to steroids - Off now, monitor sugars Dispo: - Likely DC home in AM Visit type - Emergency Visit Emergency Visit: Yes ED Registration Date: 06/25/17 Care time: The patient presented to the Emergency Department on the above date and was hospitalized for further evaluation of their emergent condition. - New Patient This patient is new to me today: Yes Date on this admission: 06/26/17 - Critical Care Critical Care patient: No
[2017-06-27] MEDS: GABAPENTIN 300 MG CAPSULE (FP) PO SCH ×2 (06:15→15:01)
[2017-06-27] MEDS: INSULIN SLIDING SCALE (NOVOLOG) 1 VIAL SQ SCH ×2 (06:16→11:40)
--- NOTE | 2017-06-27 09:34 | DS ---
Physical Exam: SUBJECTIVE: Patient seen and examined. her RU shoulder pain with inspiration has improved. Denies cough. OBJECTIVE: Vital Signs Period Temp Pulse Resp BP Sys/Wade Pulse Ox Last 24 Hr 97.9 F-98.7 F 72-94 16-18 99-133/60-81 96-96 PE Neuro: alert, awake, L sided facial droop (hx bells palsy) Pulm: basilar rhonchi, no wheezing, no sob CV: S1 s2 rrr no mrg Abd: s nt nd + bs Ext: Warm no le edema Laboratory Results - last 24 hr 06/26/17 06/26/17 06/26/17 11:02 16:14 21:51 POC Glucometer 175 141 179 06/27/17 06:15 POC Glucometer 116 HOSPITAL COURSE: Date of Admission:06/25/17 Date of Discharge: 06/27/17 Minutes to complete discharge: 38 Discharge Summary Reason For Visit: COPD EXACERBATION Current Active Problems COPD exacerbation (Acute) Hospital Course: Initial Hospital Course: Briefly, this 61 year old female with pmhx of Vivas's Palsy (diagnosed at the age of 9), HIV+ (CD 400), COPD and Sarcoidosis, sent to the ER from her infectious disease office for hypoxia. Patient denied coughing, fever, chills or sick contacts. Patient stated she became short of breath yesterday while cleaning her home and with ambulation but her symptoms resolved with rest. She became short of breath again when ambulating to her physician office and notes and was JESUS with any physical exertion. Imaging: ECHO 06/25/2017: nml LVSF, impaired LV relaxation, mild MR, TR CT chest 06/25/2017: scarring and cystic changes seen in apical segment of the left upper lobe with linear like platelike atelectasis/scarring in the right lung base. Diffuse heterogenous attenuation of the liver with a lobulated contours and multiple patchy areas of ill defined low attenuation density likely on the basis of previously described cirrhosis. Subsequent Hospital Course/Progress Note/DC summary: Assessment: 61 year old female with pmhx Vivas's Palsy (diagnosed at the age of 9), HIV+ (CD 400), COPD and Sarcoidosis admitted for hypoxia, sob, jesus, hypotension. Plan: 1. Acute COPD exacerbation vs. Sarcoidosis flare vs. PE - Off IV medrol - Resp status stable on dc - No home prednisone - Continue with spirivia, advair 2. Asymptomatic bacteriuria - No symptoms, no abx at this time 3. Hypotension - Resolved with fluids 4. HIV + - Continue home HAART meds - [facility] follow up 5 Hyperglycemia - Due to steroids, sugars stable - Sensitive to steroids, dc home off prednisone Dispo: - Home with meds listed and pulm, [facility] follow [facility] - Pt aware and agrees to above plan Condition: Stable - Instructions Diet, Activity, Other Instructions: Please return to the ED for any new, persistent, or worsening symptoms. Followup with your PCP in 1 week Take home medications as directed Followup with [facility] and pulmonary in next 1-2 weeks Referrals: Ronnie Green MD [Primary Care Provider] - Beti Herndon MD [Staff Physician] - Evan Mendoza MD [Staff Physician] - Disposition: HOME - Home Medications Comprehensive Discharge Medication List: Ambulatory Orders Abacavir/Dolutegravir/Lamivudi [Triumeq Tablet] 1 each PO DAILY 06/24/17 Albuterol 0.083% Nebulizer Aruna [Ventolin 0.083% Nebulizer Soln -] 1 neb NEB PRN PRN 06/24/17 Albuterol Sulfate Inhaler - [Ventolin HFA Inhaler -] 1 inh PO Q6H PRN 06/24/17 Ammonium Lactate Lotion [Lac-Hydrin 12] 1 applic TP BID 06/24/17 Clotrimazole [Lotrimin -] 1 applic TP BID 06/24/17 Cyclobenzaprine HCl [Flexeril 10 mg] 10 mg PO BID 06/24/17 Docusate Sodium [Colace -] 100 mg PO BID 06/24/17 Gabapentin 300 mg PO Q8H 06/24/17 Glycerin Suppository Adult - 1 each RC DAILY PRN 06/24/17 Morphine *Sr* [Ms Contin -] 15 mg PO BID 06/24/17 Multivitamin with Minerals [Icaps Plus] 1 each PO DAILY 06/24/17 Polyethylene Glycol 3350 [Gavilax] 17 gm PO DAILY 06/24/17 Sennosides [Senna -] 1 tab PO DAILY 06/24/17 Tiotropium [place] [Spiriva] 1 inh IH DAILY 06/24/17 Valacyclovir HCl [Valtrex -] 500 mg PO DAILY 06/24/17 This patient is new to me today: No Emergency Visit: Yes ED Registration Date: 06/25/17 Care time: The patient presented to the Emergency Department on the above date and was hospitalized for further evaluation of their emergent condition. Critical Care patient: No - Discharge Referral Referred to [facility] No
--- NOTE | 2017-06-27 09:34 | PN ---
Progress Note (short form) - Note Progress Note: feels better no sob, no wheezing Vital Signs Period Temp Pulse Resp BP Sys/Wade Pulse Ox Last 24 Hr 97.9 F-98.7 F 72-94 16-18 99-133/60-81 96-96 no thrush cor-rrr lungs clear abd soft,nt ext no edema CBC, BMP 06/26/17 06:45 06/26/17 06:45 Microbiology 06/24/17 09:09 Urine - Urine Clean Catch Urine Culture - Preliminary Lactose Fermenting Neg Bacilli 06/24/17 16:42 Blood - Peripheral Venous Blood Culture - Preliminary NO GROWTH OBTAINED AFTER 48 HOURS, INCUBATION TO CONTINUE FOR 3 DAYS. 06/24/17 16:42 Blood - Peripheral Venous Blood Culture - Preliminary NO GROWTH OBTAINED AFTER 48 HOURS, INCUBATION TO CONTINUE FOR 3 DAYS. 06/25/17 10:10 Nares - Mrsa Screen - Left MRSA Screen - Final NO MRSA ISOLATED 06/25/17 10:10 Nares - Mrsa Screen - Right MRSA Screen - Final NO MRSA ISOLATED 06/25/17 14:30 Nasopharyngeal Swab Influenza Types A,B Antigen (JENNIFER) - Final 06/25/17 14:30 Nasopharyngeal Swab - Final Current Medications Clotrimazole (Lotrimin 1% Solution -) 1 applic TP BID [facility] Last Admin: 06/26/17 21:54 Dose: Not Given Cyclobenzaprine HCl (Flexeril -) 10 mg PO BID [facility] Last Admin: 06/26/17 21:53 Dose: 10 mg Docusate Sodium (Colace -) 100 mg PO BID [facility] Last Admin: 06/26/17 21:53 Dose: 100 mg Gabapentin (Neurontin -) 300 mg PO TID [facility] Last Admin: 06/27/17 06:15 Dose: 300 mg Glycerin (Glycerin Suppository Adult -) 1 each RC DAILY PRN PRN Reason: CONSTIPATION Heparin Sodium (Porcine) (Heparin -) 5,000 unit SQ BID [facility] Last Admin: 06/26/17 21:53 Dose: 5,000 unit Insulin Aspart (Novolog Vial Sliding Scale -) 1 vial SQ ACHS [facility] PRN Reason: Protocol Last Admin: 06/27/17 06:16 Dose: Not Given Morphine Sulfate (Ms Contin -) 15 mg PO BID [facility] Last Admin: 06/26/17 21:54 Dose: 15 mg Multivitamins/Minerals (Theragran-M) 1 each PO DAILY [facility] Last Admin: 06/26/17 09:28 Dose: 1 each Abacavir 600mg/Dolutegravir 50mg/Lamivudine 300mg ( Triumeq) Tablet (Pt' s Own) 1 each PO DAILY [facility] Last Admin: 06/26/17 11:40 Dose: 1 each Polyethylene Glycol (Miralax (For Daily Use) -) 17 gm PO DAILY [facility] Last Admin: 06/26/17 09:28 Dose: 17 grams Fluticasone/Salmeterol (Advair 100mcg/50mcg -) 1 puff IH BID [facility] Last Admin: 06/26/17 21:53 Dose: 1 puff Senna (Senna -) 1 tab PO DAILY [facility] Last Admin: 06/26/17 09:28 Dose: 1 tab Tiotropium Fowler (Spiriva -) 1 puff IH DAILY [facility] Last Admin: 06/26/17 09:30 Dose: 1 puff Valacyclovir HCl (Valtrex -) 500 mg PO DAILY [facility] Last Admin: 06/26/17 09:40 Dose: 500 mg imp/reccd 61 year old female with stable HIV, 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, COPD- admitted with wheezing and hypoxia that did not improve in clinic yesterday when I saw her she was sent to ED for further evaluation and admitted for copd exacerbation no fever no chills no cough copd exacerbation- steroids per pulmonary no signs of pulmonary infection d/c per pulmonary asymptomatic bacteriuria- no symptoms, ua is negative, no need to treat for UTI hiv- stable, daughter will bring in meds she can f/u with me as an outpt at the [facility] when ready for discharge d/w hospitalist yesterday Problem List - Problems (1) COPD exacerbation Code(s): J44.1 - CHRONIC OBSTRUCTIVE PULMONARY DISEASE W (ACUTE) EXACERBATION (2) HIV (human immunodeficiency virus infection) Code(s): Z21 - ASYMPTOMATIC HUMAN IMMUNODEFICIENCY VIRUS INFECTION STATUS
[2017-06-27] MEDS: FLUTICASONE/SALMETEROL 100 MCG/50 MCG DISKUS IH SCH (09:45)
[2017-06-27] MEDS: TIOTROPIUM BROMIDE 18 MCG/INH (DEVICE W/ 5 CAPSULES) IH SCH (09:45)
[2017-06-27] MEDS: morphine SO4 SUSTAINED ACTING 15 MG TABLET.SA PO SCH (09:46)
[2017-06-27] MEDS: SENNOSIDES 8.6MG TABLET (FP) PO SCH (09:46)
[2017-06-27] MEDS: CYCLOBENZAPRINE HCL 10 MG TABLET (FP) PO SCH (09:46)
[2017-06-27] MEDS: valACYclovir HCL 500 MG TABLET (FP) PO SCH (09:46)
[2017-06-27] MEDS: MULTIVITAMINS THER W-MINERALS COMBO TABLET (FP) PO SCH (09:46)
[2017-06-27] MEDS: POLYETHYLENE GLYCOL 3350 119 GM BTL PO SCH (09:47)
[2017-06-27] MEDS: DOCUSATE SODIUM 100 MG CAPSULE (FP) PO SCH (09:47)
[2017-06-27] MEDS: HEPARIN NA (PORCINE) 5,000 UNITS/ML 1ML VIAL SQ SCH (09:47)
[2017-06-27] MEDS: ABACAVIR PO SCH (09:52)
[2017-06-27] MEDS: [UNRECOGNIZED DRUG - OTHER] PO SCH (09:52)
[2017-06-27] MEDS: CLOTRIMAZOLE 1%TOPICAL SOLUTION 30 ML BOTTLE TP SCH (09:53)
--- NOTE | 2017-06-27 11:06 | PN ---
Progress Note (short form) - Note Progress Note: PULMONARY VSS/AFEBRILE/SPO2 96% ON R/A ANICTERIC/FACIAL PALSY CHRONIC CLEAR S1S2 BS+ NO EDEMA LABS/MEDS/NOTES/IMAGES REVIEWED SARCOID GRANULOMATOUS LIVER DISEASE COPD HIV+ CONTINUE ICS/LABA/JOHANNY OUTPATIENT CAN FOLLOW UP IN OFFICE Quinten JOHNSON MD
[2017-06-27 14:51] VITALS: BP 111/59; PULSE 102; TEMP 98.3
== END 2017-06-27 16:32 | disposition home or self-care (01) | DRG 190 ==
LOC: JER 11:59 → JERBED 15:52 → J6S 22:09 → OBSVTOIN 06-25 07:25
PROVIDERS: ADMIT Internal Medicine; ATTEND Nurse Practitioner Acute Care
DX: J44.1 Chronic obstructive pulmonary disease with (acute) exacerbation (principal); J96.01 Acute respiratory failure with hypoxia; N39.0 Urinary tract infection, site not specified; J98.11 Atelectasis; G51.0 Bell's palsy; D86.89 Sarcoidosis of other sites; M54.89 Other dorsalgia; G62.9 Polyneuropathy, unspecified; I95.89 Other hypotension; R73.9 Hyperglycemia, unspecified; K76.89 Other specified diseases of liver; M25.511 Pain in right shoulder; Z79.52 Long term (current) use of systemic steroids; Z21 Asymptomatic human immunodeficiency virus [HIV] infection status; Z87.891 Personal history of nicotine dependence
CPT/HCPCS: 36415; 71020-TC; 71250-TC; 80048; 80053; 81003; 81015; 82550; 82553; 83036; 83735; 84484; 85025; 85027; 87040; 87081; 87086; 87186; 87804; 93005; 93010; 93306-TC; 93970-TC; 94640; 94761; 99195; 99285-25; G0378; G0463-25; J1644

== ENCOUNTER 2017-07-27 18:31 | Emergency (ER) | payer OTHER ==
[2017-07-27 18:38] VITALS: BP 102/68; PULSE 110; TEMP 97.5; BMI 18.8
[2017-07-27 19:00] LABS: BASO % 0.4 % (0-2.0); EOS % 1.5 % (0-4.5); MCH 31.5 pg (25.7-33.7); MCHC 33.5 g/dl (32.0-36.0); MEAN CELL VOLUME 94.1 fl (80-96); MEAN PLT VOLUME 9.6 fl (7.5-11.1); NEUT % 56.2 % (42.8-82.8); PLATELET COUNT 124 K/MM3 (134-434); RDW 14.5 % (11.6-15.6); WHITE BLOOD COUNT 5.6 K/mm3 (4.0-10.0)
[2017-07-27] MEDS ORDERED: MAGNESIUM SULF 50% (8.12 MEQ/2 ML-1 GM VIAL) ONE (20:04)
[2017-07-27] MEDS ORDERED: SODIUM CHLORIDE 1,000 ML IV ONE (20:29)
[2017-07-27] MEDS ORDERED: MAGNESIUM SULF 50% (8.12 MEQ/2 ML-1 GM VIAL) IVPB ONE (20:29)
--- NOTE | 2017-07-27 22:07 | PDOC ---
History of Present Illness - General History Source: Patient Exam Limitations: No Limitations - History of Present Illness Initial Comments: 07/27/17 22:20 Patient is a 61 y.o. 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 Patient reports 10 episodes each day since last Wednesday. Notes that she is concerned due to the diarrhea lasting over 3 days. GI consult in 03/2017 Allergies: Zoysyn, Vancomycin Surgical: Cholecystectomy w/respiratory complications (2012) PMD: Dr. Nolasco [facility] - Dr. Herndon <Ro Pena - Last Filed: 07/27/17 22:20> <Irma Estes - Last Filed: 07/27/17 23:48> - General Chief Complaint: Diarrhea Stated Complaint: DIARRHEA Time Seen by Provider: 07/27/17 18:45 Past History <Ro Pena - Last Filed: 07/27/17 22:20> - Past Medical History Anemia: Yes (hemolytic anema 2011) Asthma: Yes Cancer: No Cardiac Disorders: No CVA: No COPD: Yes CHF: No Dementia: No Diabetes: No GI Disorders: Yes (granulomatous hepatitis) Disorders: No HTN: No Hypercholesterolemia: No Kidney Stones: No Liver Disease: Yes Psychiatric Problems: Yes (Seen for depression in 1998 when diagnosed HIV+) Seizures: No Thyroid Disease: No - Surgical History Abdominal Surgery: Yes (ectopic in 1986, TUBAL LIGATION) Appendectomy: No Cardiac Surgery: No Cholecystectomy: Yes (GB SX) Lung Surgery: No Neurologic Surgery: No Orthopedic Surgery: No - Reproductive History PID: No - Immunization History Immunization Up to Date: Yes - Suicide/Smoking/Psychosocial Hx Smoking Status: Yes (QUIT 05/2012) Smoking History: Never smoked Years of Tobacco Use: 30 Have you smoked in the past 12 months: No Number of Cigarettes Smoked Daily: 5 If you are a former smoker, when did you quit?: 2000 Cigars Per Day: 0 Information on smoking cessation initiated: No 'Breaking Loose' booklet given: 12/21/11 Hx Alcohol Use: No Drug/Substance Use Hx: No Substance Use Type: None Hx Substance Use Treatment: No <Irma Estes - Last Filed: 07/27/17 23:48> - Past Medical History Allergies/Adverse Reactions: Allergies Allergy/AdvReac Type Severity Reaction Status Date / Time piperacillin sodium Allergy Mild Itching Verified 06/24/17 12:20 [From Zosyn] tazobactam sodium Allergy Mild Itching Verified 06/24/17 12:20 [From Zosyn] vancomycin AdvReac Intermediate Difficulty Verified 06/24/17 12:20 Breathing lactose-intolerance AdvReac Unknown Uncoded 06/24/17 12:20 Home Medications: Ambulatory Orders Abacavir/Dolutegravir/Lamivudi [Triumeq Tablet] 1 each PO DAILY 06/24/17 Gabapentin 300 mg PO Q8H 06/24/17 Abd/GI Specific PMHX - Complaint Specific PMHX Hepatitis: No (hepatitis c) Pancreatitis: No <Irma Estes - Last Filed: 07/27/17 23:48> Review of Systems - Review of Systems Able to Perform ROS?: Yes Comments:: 07/27/17 22:21 CONSTITUTIONAL: Absent: fever, chills, diaphoresis, generalized weakness, malaise, loss of appetite HEENT: Absent: rhinorrhea, nasal congestion, throat pain, throat swelling, difficulty swallowing, mouth swelling, ear pain, eye pain, visual Changes CARDIOVASCULAR: Absent: chest pain, syncope, palpitations, irregular heart rate, lightheadedness , peripheral edema RESPIRATORY: Absent: cough, shortness of breath, dyspnea with exertion, orthopnea, wheezing, stridor, hemoptysis GASTROINTESTINAL: Present: diarrhea Absent: abdominal pain, abdominal distension, nausea, vomiting, constipation, melena, hematochezia GENITOURINARY: Absent: dysuria, frequency, urgency, hesitancy, hematuria, flank pain, genital pain MUSCULOSKELETAL: Absent: myalgia, arthralgia, joint swelling SKIN: Absent: rash, itching, pallor HEMATOLOGIC/IMMUNOLOGIC: Absent: easy bleeding, easy bruising, lymphadenopathy, frequent infections ENDOCRINE: Absent: unexplained weight gain, unexplained weight loss, heat intolerance, cold intolerance NEUROLOGIC: Absent: headache, focal weakness or paresthesias, dizziness, unsteady gait, seizure, mental status changes, bladder or bowel incontinence PSYCHIATRIC: Absent: anxiety, depression, suicidal or homicidal ideation, hallucinations. <Ro Pena - Last Filed: 07/27/17 22:20> *Physical Exam - Vital Signs Last Vital Signs Temp Pulse Resp BP Pulse Ox 97.5 F L 110 H 18 102/68 100 07/27/17 18:35 07/27/17 18:35 07/27/17 18:35 07/27/17 18:35 07/27/17 18:35 - Physical Exam Comments: 07/27/17 22:21 GENERAL: Well developed, well nourished. Awake and alert. No acute distress. HEENT: Normocephalic, atraumatic. PERRLA, EOMI. No conjunctival pallor. Sclera are non- icteric. Moist mucous membranes. Oropharynx is clear. NECK: Supple. Full ROM. No JVD. Carotid pulses 2+ and symmetric, without bruits. No thyromegaly. No lymphadenopathy. CARDIOVASCULAR: Regular rate and rhythm. No murmurs, rubs, or gallops. Distal pulses are 2+ and symmetric. PULMONARY: No evidence of respiratory distress. Lungs clear to auscultation bilaterally. No wheezing, rales or rhonchi. ABDOMINAL: Soft. Non-tender. Non-distended. No rebound or guarding. No organomegaly. Normoactive bowel sounds. MUSCULOSKELETAL Normal range of motion at all joints. No bony deformities or tenderness. No CVA tenderness. EXTREMITIES: No cyanosis. No clubbing. No edema. No calf tenderness. SKIN: Warm and dry. Normal capillary refill. No rashes. No jaundice. NEUROLOGICAL: Alert, awake, appropriate. Cranial nerves 2-12 intact. Normal speech. PSYCHIATRIC: Cooperative. Good eye contact. Appropriate mood and affect. <Ro Pena - Last Filed: 07/27/17 22:20> - Vital Signs Last Vital Signs Temp Pulse Resp BP Pulse Ox 97.5 F L 110 H 18 102/68 100 07/27/17 18:35 07/27/17 18:35 07/27/17 18:35 07/27/17 18:35 07/27/17 18:35 <Irma Estes - Last Filed: 07/27/17 23:48> ED Treatment Course - LABORATORY CBC & Chemistry Diagram: 07/27/17 18:50 07/27/17 18:50 - ADDITIONAL ORDERS Additional order review: 07/27/17 18:50 RBC 4.52 MCV 94.1 MCHC 33.5 RDW 14.5 MPV 9.6 Neutrophils % 56.2 Lymphocytes % 26.2 Monocytes % 15.7 H D Eosinophils % 1.5 D Basophils % 0.4 - Medications Given in the ED: ED Medications Discontinued Medications Generic Name Dose Route Start Last Admin Trade Name Freq PRN Reason Stop Dose Admin Sodium Chloride 1,000 mls @ 1,000 mls/hr 07/27/17 20:29 07/27/17 20:30 Normal Saline - IV 07/27/17 21:28 1,000 mls/hr ASDIR ONE Administration Magnesium Sulfate 1 gm 07/27/17 20:29 07/27/17 20:29 Magnesium Sulfate IVPB 07/27/17 20:30 1 gm NOW ONE Administration <Ro Pena - Last Filed: 07/27/17 22:20> - LABORATORY CBC & Chemistry Diagram: 07/27/17 18:50 07/27/17 18:50 - ADDITIONAL ORDERS Additional order review: 07/27/17 18:50 RBC 4.52 MCV 94.1 MCHC 33.5 RDW 14.5 MPV 9.6 Neutrophils % 56.2 Lymphocytes % 26.2 Monocytes % 15.7 H D Eosinophils % 1.5 D Basophils % 0.4 - Medications Given in the ED: ED Medications Discontinued Medications Generic Name Dose Route Start Last Admin Trade Name Freq PRN Reason Stop Dose Admin Sodium Chloride 1,000 mls @ 1,000 mls/hr 07/27/17 20:29 07/27/17 20:30 Normal Saline - IV 07/27/17 21:28 1,000 mls/hr ASDIR ONE Administration Magnesium Sulfate 1 gm 07/27/17 20:29 07/27/17 20:29 Magnesium Sulfate IVPB 07/27/17 20:30 1 gm NOW ONE Administration <Irma Estes - Last Filed: 07/27/17 23:48> *DC/Admit/Observation/Transfer - Attestations Scribe Attestion: 07/27/17 22:22 Documentation prepared by VIVIENNE Banerjee, acting as medical review specialist for Irma Estes MD/DO. <Ro Pena - Last Filed: 07/27/17 22:20> <Irma Estes - Last Filed: 07/27/17 23:48> Diagnosis at time of Disposition: HIV (human immunodeficiency virus infection) Diarrhea Qualifiers: Diarrhea type: unspecified type Qualified Code(s): R19.7 - Diarrhea, unspecified - Discharge Dispostion Disposition: HOME Condition at time of disposition: Stable - Patient Instructions Printed Discharge Instructions: DI for Diarrhea and Traveler's Diarrhea -- Adult Additional Instructions: please follow up with your regular health care provider at [facility] this week
[2017-07-27 23:00] LABS: ALBUMIN 2.9 g/dl (3.4-5.0); ALK PHOS 209 U/L (45-117); ANION GAP 9 (8-16); CALCIUM 7.9 mg/dL (8.5-10.1); CO2 21 mmol/L (21-32); CREATININE 1.2 mg/dL (0.55-1.02); GLUCOSE,RANDOM 98 mg/dL (74-106); SGPT/ALT 40 U/L (12-78); TOT PROT 7.9 g/dl (6.4-8.2)
[2017-07-27 23:07] LABS: SGOT/AST 67 U/L (15-37)
== END 2017-07-28 00:11 | disposition home or self-care (01) ==
LOC: JER 18:31
PROC: 3E033GC Introduction of Other Therapeutic Substance into Peripheral Vein, Percutaneous Approach (ICD-10-PCS; principal; 2017-07-27)
PROC: 3E0337Z Introduction of Electrolytic and Water Balance Substance into Peripheral Vein, Percutaneous Approach (ICD-10-PCS; 2017-07-27)
DX: R19.7 Diarrhea, unspecified (principal); Z21 Asymptomatic human immunodeficiency virus [HIV] infection status; G51.0 Bell's palsy; J44.9 Chronic obstructive pulmonary disease, unspecified; D86.9 Sarcoidosis, unspecified
CPT/HCPCS: 36415; 80053; 85025; 96361; 96374; 99282-25

== ENCOUNTER 2017-08-19 22:23 | Emergency (ER) | payer OTHER ==
[2017-08-19 22:35] VITALS: BP 113/75; PULSE 80; TEMP 97.8; BMI 25.1
[2017-08-19 23:00] LABS: URINE APPEARANCE CLEAR; URINE BILIRUBIN NEGATIVE (NEGATIVE); URINE BLOOD NEGATIVE (NEGATIVE); URINE COLOR STRAW; URINE GLUCOSE (UA) NEGATIVE (NEGATIVE); URINE KETONE NEGATIVE (NEGATIVE); URINE LEUK ESTERASE TRACE (NEGATIVE); URINE NITRITE NEGATIVE (NEGATIVE); URINE PROTEIN NEGATIVE (NEGATIVE); URINE UROBILINOGEN NEGATIVE mg/dL (0.2-1.0)
[2017-08-20 00:14] LABS: EPI CELLS RARE /HPF (FEW); URINE BACTERIA RARE /hpf (NONE SEEN)
--- NOTE | 2017-08-20 00:22 | PDOC ---
History of Present Illness - General History Source: Patient Exam Limitations: No Limitations - History of Present Illness Initial Comments: 08/20/17 00:33 The patient is a 61 year old female with a significant PMH of [place] palsy, HIV, chronic liver disease, sarcoidosis, and COPD who presents to the emergency department with numbness and cramping in the hands and feet beginning approximately 2 days ago. She reports this cramping sensation feels like what she experienced during an elevated blood sugar episode about 3 years ago. The patient also notes lightheadedness and midline abdominal pain over the past 2 days. Allergies: Piperacillin sodium, Tazobactam sodium, Vancomycin Past surgical history: Cholecystectomy. Tubal ligation. Social history: Former smoker. No reported alcohol or drug use. PCP: None reported. <Les Scruggs - Last Filed: 08/20/17 00:36> - General History Source: Patient <Aurelio Rios - Last Filed: 08/20/17 01:50> - General Chief Complaint: Lightheaded Stated Complaint: WEAKNESS Time Seen by Provider: 08/19/17 23:59 Past History <Les Scruggs - Last Filed: 08/20/17 00:36> - Past Medical History Anemia: Yes (hemolytic anema 2011) Asthma: Yes Cancer: No Cardiac Disorders: No CVA: No COPD: Yes CHF: No Dementia: No Diabetes: No GI Disorders: Yes (granulomatous hepatitis) Disorders: No HTN: No Hypercholesterolemia: No Kidney Stones: No Liver Disease: Yes Psychiatric Problems: Yes (Seen for depression in 1998 when diagnosed HIV+) Seizures: No Thyroid Disease: No Other medical history: arthritis, herniated disc, neuropathy - Surgical History Abdominal Surgery: Yes (ectopic in 1986, TUBAL LIGATION) Appendectomy: No Cardiac Surgery: No Cholecystectomy: Yes (GB SX) Lung Surgery: No Neurologic Surgery: No Orthopedic Surgery: No - Reproductive History PID: No - Immunization History Immunization Up to Date: Yes - Suicide/Smoking/Psychosocial Hx Smoking Status: Yes (QUIT 05/2012) Smoking History: Former smoker Years of Tobacco Use: 30 Have you smoked in the past 12 months: No Number of Cigarettes Smoked Daily: 5 If you are a former smoker, when did you quit?: 2000 Cigars Per Day: 0 Information on smoking cessation initiated: No 'Breaking Loose' booklet given: 12/21/11 Hx Alcohol Use: No Drug/Substance Use Hx: No Substance Use Type: None Hx Substance Use Treatment: No <BlancaAurelio - Last Filed: 08/20/17 01:50> - Past Medical History Allergies/Adverse Reactions: Allergies Allergy/AdvReac Type Severity Reaction Status Date / Time piperacillin sodium Allergy Mild Itching Verified 08/19/17 22:26 [From Zosyn] tazobactam sodium Allergy Mild Itching Verified 08/19/17 22:26 [From Zosyn] vancomycin AdvReac Intermediate Difficulty Verified 08/19/17 22:26 Breathing lactose-intolerance AdvReac Unknown Uncoded 08/19/17 22:26 Home Medications: Ambulatory Orders Abacavir/Dolutegravir/Lamivudi [Triumeq Tablet] 1 each PO DAILY 06/24/17 Gabapentin 300 mg PO Q8H 06/24/17 Review of Systems - Review of Systems Able to Perform ROS?: Yes Comments:: 08/20/17 00:35 CONSTITUTIONAL: Absent: fever, chills, diaphoresis, generalized weakness, malaise, loss of appetite HEENT: Absent: rhinorrhea, nasal congestion, throat pain, throat swelling, difficulty swallowing, mouth swelling, ear pain, eye pain, visual Changes CARDIOVASCULAR: Absent: chest pain, syncope, palpitations, irregular heart rate, lightheadedness , peripheral edema RESPIRATORY: Absent: cough, shortness of breath, dyspnea with exertion, orthopnea, wheezing, stridor, hemoptysis GASTROINTESTINAL: (+) Midline abdominal pain. Absent: abdominal distension, nausea, vomiting, diarrhea, constipation, melena, hematochezia GENITOURINARY: Absent: dysuria, frequency, urgency, hesitancy, hematuria, flank pain, genital pain MUSCULOSKELETAL: Absent: myalgia, arthralgia, joint swelling SKIN: Absent: rash, itching, pallor HEMATOLOGIC/IMMUNOLOGIC: Absent: easy bleeding, easy bruising, lymphadenopathy, frequent infections ENDOCRINE: Absent: unexplained weight gain, unexplained weight loss, heat intolerance, cold intolerance NEUROLOGIC: (+) Numbness and cramping in hands and feet bilaterally. (+) Lightheadedness. Absent: headache, focal weakness or paresthesias, dizziness, unsteady gait, seizure, mental status changes, bladder or bowel incontinence PSYCHIATRIC: Absent: anxiety, depression, suicidal or homicidal ideation, hallucinations. <Les Scruggs - Last Filed: 08/20/17 00:36> *Physical Exam - Vital Signs Last Vital Signs Temp Pulse Resp BP Pulse Ox 97.8 F 80 20 113/75 97 08/19/17 22:27 08/19/17 22:27 08/19/17 22:27 08/19/17 22:27 08/19/17 22:27 - Physical Exam Comments: 08/20/17 00:36 GENERAL: Well developed, well nourished. Awake and alert. No acute distress. HEENT: Normocephalic, atraumatic. PERRLA, EOMI. No conjunctival pallor. Sclera are non- icteric. Moist mucous membranes. Oropharynx is clear. NECK: Supple. Full ROM. No JVD. Carotid pulses 2+ and symmetric, without bruits. No thyromegaly. No lymphadenopathy. CARDIOVASCULAR: Regular rate and rhythm. No murmurs, rubs, or gallops. Distal pulses are 2+ and symmetric. PULMONARY: No evidence of respiratory distress. Lungs clear to auscultation bilaterally. No wheezing, rales or rhonchi. ABDOMINAL: Soft. Non-tender. Non-distended. No rebound or guarding. No organomegaly. Normoactive bowel sounds. MUSCULOSKELETAL Normal range of motion at all joints. No bony deformities or tenderness. No CVA tenderness. EXTREMITIES: No cyanosis. No clubbing. No edema. No calf tenderness. SKIN: Warm and dry. Normal capillary refill. No rashes. No jaundice. NEUROLOGICAL: (+) Facial droop on left side. Alert, awake, appropriate. Cranial nerves 2-12 intact. No deficits to light touch and temperature in face, upper extremities and lower extremities. No motor deficits in the in face, upper extremities and lower extremities. Normoreflexic in the upper and lower extremities. Normal speech. Toes are down- going bilaterally. PSYCHIATRIC: Cooperative. Good eye contact. Appropriate mood and affect. <Les Scruggs - Last Filed: 08/20/17 00:36> - Vital Signs Last Vital Signs Temp Pulse Resp BP Pulse Ox 97.8 F 80 20 113/75 97 08/19/17 22:27 08/19/17 22:27 08/19/17 22:27 08/19/17 22:27 08/19/17 22:27 <Sinisterra,Aurelio - Last Filed: 08/20/17 01:50> ED Treatment Course - ADDITIONAL ORDERS Additional order review: Laboratory Results 08/19/17 22:43 Urine Color Straw Urine Appearance Clear Urine pH 6.0 Ur Specific [place] 1.002 Urine Protein Negative Urine Glucose (UA) Negative Urine Ketones Negative Urine Blood Negative Urine Nitrite Negative Urine Bilirubin Negative Urine Urobilinogen Negative Ur Leukocyte Esterase Trace Urine WBC (Auto) <1 Urine RBC (Auto) <1 Ur Epithelial Cells Rare Urine Bacteria Rare <Les Scruggs - Last Filed: 08/20/17 00:36> - LABORATORY CBC & Chemistry Diagram: 08/20/17 00:37 08/20/17 00:37 - ADDITIONAL ORDERS Additional order review: Laboratory Results 08/19/17 22:43 Urine Color Straw Urine Appearance Clear Urine pH 6.0 Ur Specific [place] 1.002 Urine Protein Negative Urine Glucose (UA) Negative Urine Ketones Negative Urine Blood Negative Urine Nitrite Negative Urine Bilirubin Negative Urine Urobilinogen Negative Ur Leukocyte Esterase Trace <Aurelio Rios - Last Filed: 08/20/17 01:50> Medical Decision Making - Medical Decision Making 08/20/17 01:44 Dr. Rios: The scribe's documentation has been prepared under my direction and personally reviewed by me in its entirery. I confirm that the note above accurately reflects all work, treatment, procedures, and medical decision making performed by me. <Aurelio Rios - Last Filed: 08/20/17 01:50> *DC/Admit/Observation/Transfer - Attestations Scribe Attestion: 08/20/17 00:36 Documentation prepared by Les Scruggs, acting as medical research tech for Aurelio Rios DO. <Les Scruggs - Last Filed: 08/20/17 00:36> - Discharge Dispostion Admit: No <Aurelio Rios - Last Filed: 08/20/17 01:50> Diagnosis at time of Disposition: Weakness - Discharge Dispostion Disposition: HOME Condition at time of disposition: Stable - Referrals Referrals: Quinn Watts MD [Staff Physician] - Chalino Robles MD [Staff Physician] - - Patient Instructions Printed Discharge Instructions: DI for Muscle Weakness Additional Instructions: Please follow up with your doctor as soon as possible for re-evaluation of symptoms. Return if any problems - Post Discharge Activity
[2017-08-20 00:57] LABS: BASO % 0.4 % (0-2.0); EOS % 4.1 % (0-4.5); HEMATOCRIT 39.4 % (32.4-45.2); HEMOGLOBIN 12.9 GM/dL (10.7-15.3); LYMPH % 31.2 % (8-40); MCH 31.6 pg (25.7-33.7); MCHC 32.8 g/dl (32.0-36.0); MEAN CELL VOLUME 96.2 fl (80-96); MEAN PLT VOLUME 9.7 fl (7.5-11.1); MONO % 11.5 % (3.8-10.2); NEUT % 52.8 % (42.8-82.8); PLATELET COUNT 110 K/MM3 (134-434); WHITE BLOOD COUNT 5.1 K/mm3 (4.0-10.0)
[2017-08-20 01:35] LABS: ALBUMIN 2.8 g/dl (3.4-5.0); ALK PHOS 180 U/L (45-117); ANION GAP 5 (8-16); BILIRUBIN,TOTAL 0.9 mg/dL (0.2-1.0); BLOOD UREA NITROGEN 8 mg/dL (7-18); CALCIUM 8.1 mg/dL (8.5-10.1); CHLORIDE 108 mmol/L (98-107); CO2 27 mmol/L (21-32); CREATININE 0.9 mg/dL (0.55-1.02); GLUCOSE,RANDOM 96 mg/dL (74-106); MAGNESIUM 1.8 mg/dL (1.8-2.4); SGOT/AST 35 U/L (15-37); SGPT/ALT 24 U/L (12-78); SODIUM 140 mmol/L (136-145); TOT PROT 7.7 g/dl (6.4-8.2)
== END 2017-08-20 01:59 | disposition home or self-care (01) ==
LOC: JER 22:23
DX: R53.1 Weakness (principal); R25.2 Cramp and spasm; J44.9 Chronic obstructive pulmonary disease, unspecified; K76.9 Liver disease, unspecified; Z21 Asymptomatic human immunodeficiency virus [HIV] infection status
CPT/HCPCS: 36415; 80053; 81003; 81015; 83735; 85025; 99281-25

== ENCOUNTER 2018-01-14 12:59 | Day surgery (SDC) | payer OTHER ==
[2018-01-14 13:33] LABS: MCH 31.6 pg (25.7-33.7); MCHC 33.4 g/dl (32.0-36.0); MEAN CELL VOLUME 94.7 fl (80-96); MEAN PLT VOLUME 9.6 fl (7.5-11.1); PLATELET COUNT 101 K/MM3 (134-434); RBC 4.12 M/mm3 (3.60-5.2); RDW 14.8 % (11.6-15.6); WHITE BLOOD COUNT 3.5 K/mm3 (4.0-10.0)
[2018-01-14 13:48] LABS: INR 1.27 (0.82-1.09); PROTHROMBIN TIME (PATIENT) 14.4 SEC (9.7-13.0)
[2018-01-14 13:53] VITALS: TEMP 97.8; BMI 26.2
[2018-01-14 15:07] VITALS: PULSE 72
[2018-01-14 15:39] VITALS: BP 96/55
--- NOTE | 2018-01-19 14:24 | PATH ---
Surgical Pathology Report Patient Name: ZEB [facility]IENTE [facility]. Rec. #: [id number] /Age/Gender: 1955 (Age: 62) / F Account: [id number] Location: [facility]-ENDOSCOPY Taken: 01/14/2018 Received: 01/14/2018 Reported: 01/19/2018 Physicians: Rashaun Quinn D.O. Specimen(s) Received BX RECTUM Clinical History Occult bleed Final Diagnosis RECTUM, BIOPSY: POORLY DIFFERENTIATED CARCINOMA. SEE COMMENT. Comment: The carcinoma shows focal basaloid features. Immunohistochemical stains performed and interpreted at [facility] show the tumor is positive for P63, while negative for CK7, CK20, TTF-1, chromogranin and synaptophysin. Additional immunohistochemical stains performed at [place], [place] ([id number]) and interpreted at [facility] show the tumor is positive for CK5/6 and p40, while negative for CD56. Proliferative marker, Ki-67 is high. Overall histomorphology and immunophenotype supports the diagnosis. P16 and HPV studies are pending and will be reported separately. Findings discussed with Dr. Quinn. Electronically Signed Callie Curtis M.D. Addendum Reported: 01/25/2018 Addendum Diagnosis Immunophenotype (CK5/6+, p40+, and p63+) is consistent with a poorly differentiated squamous cell carcinoma. HPV in situ hybridization HPV (benita) performed and interpreted at [place], [place] ([id number]) for wide screen is positive. HPV (16/18) is positive (few cells), while negative for HPV (6/11). Immunohistochemical stain for p16 performed at [place], [place] ([id number]) and interpreted at [facility] show the tumor is strongly and diffusely positive. Callie Cutris M.D. Gross Description Received in formalin, labeled "rectal mass biopsy" are 4 zelaya, irregular portions of soft tissue measuring 0.5 cm. in greatest dimension. The specimen is submitted in toto in one cassette. ADONIS/01/15/2018 ajay/01/15/2018
== END 2018-01-14 16:00 | disposition home or self-care (01) ==
LOC: JASU-ENDO 12:59
PROVIDERS: ATTEND Internal Medicine Gastroenterology
PROC: 0DBP8ZX Excision of Rectum, Via Natural or Artificial Opening Endoscopic, Diagnostic (ICD-10-PCS; principal; 2018-01-14 14:30)
DX: C20 Malignant neoplasm of rectum (principal); K57.30 Diverticulosis of large intestine without perforation or abscess without bleeding; K64.8 Other hemorrhoids
CPT/HCPCS: 36415; 85027; 85610; 88305-TC; 88341-TC; 88342-TC

== ENCOUNTER 2018-04-18 09:16 | Day surgery (SDC) | payer OTHER ==
[2018-04-15 16:46] VITALS: BMI 24.6
[2018-04-18 09:40] LABS: BASO % 0.6 % (0-2.0); EOS % 2.8 % (0-4.5); HEMOGLOBIN 13.9 GM/dL (10.7-15.3); LYMPH % 29.6 % (8-40); MCH 33.4 pg (25.7-33.7); MEAN CELL VOLUME 98.1 fl (80-96); MEAN PLT VOLUME 8.8 fl (7.5-11.1); MONO % 9.6 % (3.8-10.2); NEUT % 57.4 % (42.8-82.8); PLATELET COUNT 97 K/MM3 (134-434); RBC 4.17 M/mm3 (3.60-5.2); RDW 15.2 % (11.6-15.6); WHITE BLOOD COUNT 3.8 K/mm3 (4.0-10.0)
[2018-04-18 09:56] LABS: INR 1.19 (0.83-1.09); PROTHROMBIN TIME (PATIENT) 13.5 SEC (9.7-13.0)
[2018-04-18 10:31] VITALS: TEMP 98
[2018-04-18] MEDS ORDERED: PORTA CATH FLUSH 10 ML IVPUSH PRN (10:54)
[2018-04-18] MEDS ORDERED: MIDAZOLAM HCL 2 MG/2 ML SINGLE DOSE VIAL ONE ×2 (11:43→12:24)
[2018-04-18 15:37] VITALS: BP 114/74; PULSE 80
== END 2018-04-18 15:53 | disposition home or self-care (01) ==
LOC: JRADIR 09:16
PROVIDERS: ATTEND Internal Medicine Hematology & Oncology
PROC: 0JH63XZ Insertion of Tunneled Vascular Access Device into Chest Subcutaneous Tissue and Fascia, Percutaneous Approach (ICD-10-PCS; principal; 2018-04-18)
PROC: 05HM33Z Insertion of Infusion Device into Right Internal Jugular Vein, Percutaneous Approach (ICD-10-PCS; 2018-04-18)
PROC: B513ZZA Fluoroscopy of Right Jugular Veins, Guidance (ICD-10-PCS; 2018-04-18)
DX: C21.0 Malignant neoplasm of anus, unspecified (principal)
CPT/HCPCS: 36561; 77001; C1751; 36415; 85025; 85610

== ENCOUNTER 2018-04-25 11:38 | Day surgery (SDC) | payer OTHER ==
[2018-04-25] MEDS ORDERED: PEGFILGRASTIM 6 MG/0.6 ML DISP.SYRIN SQ ONE (12:00)
[2018-04-25 15:28] VITALS: BP 87/57; PULSE 92; TEMP 97.8
== END 2018-04-25 12:20 | disposition home or self-care (01) ==
LOC: JONCCHEMO 11:38 → J7W 11:52 → JONCCHEMO 12:20
PROVIDERS: ATTEND Internal Medicine Hematology & Oncology
PROC: 3E013GC Introduction of Other Therapeutic Substance into Subcutaneous Tissue, Percutaneous Approach (ICD-10-PCS; principal; 2018-04-25)
DX: C21.0 Malignant neoplasm of anus, unspecified (principal); Z76.89 Persons encountering health services in other specified circumstances
CPT/HCPCS: 96372; J2505

== ENCOUNTER 2018-05-05 13:09 | Day surgery (SDC) | payer OTHER ==
[2018-05-05 17:31] LABS: URINE APPEARANCE CLEAR; URINE BILIRUBIN NEGATIVE (<2.0 mg/dL); URINE COLOR AMBER; URINE GLUCOSE (UA) NEGATIVE (NEGATIVE); URINE KETONE NEGATIVE (NEGATIVE); URINE LEUK ESTERASE TRACE (NEGATIVE); URINE NITRITE NEGATIVE (NEGATIVE); URINE PROTEIN NEGATIVE (NEGATIVE); URINE UROBILINOGEN 4.0 E.U/dl mg/dL (0.2-1.0)
[2018-05-05 17:41] LABS: BASO % 0.1 % (0-2.0); EOS % 2.7 % (0-4.5); HEMATOCRIT 32.3 % (32.4-45.2); LYMPH % 5.3 % (8-40); MCHC 33.9 g/dl (32.0-36.0); MEAN CELL VOLUME 100.1 fl (80-96); MEAN PLT VOLUME 9.3 fl (7.5-11.1); MONO % 5.9 % (3.8-10.2); PLATELET COUNT 67 K/MM3 (134-434); RBC 3.23 M/mm3 (3.60-5.2); RDW 15.8 % (11.6-15.6)
[2018-05-05 17:54] LABS: CALCIUM OXALATE CRYSTALS FEW /hpf (NONE SEEN); EPI CELLS RARE /HPF (FEW); URINE BACTERIA MODERATE /hpf (NONE SEEN); URINE MUCUS RARE
[2018-05-05 18:01] VITALS: TEMP 98
[2018-05-05] MEDS ORDERED: PORTA CATH FLUSH 10 ML IVPUSH ONE (18:03)
[2018-05-05 18:37] VITALS: BP 92/52; PULSE 72
== END 2018-05-05 18:56 | disposition home or self-care (01) ==
LOC: JONCBLOOD 13:09 → J7W 13:24 → JONCBLOOD 18:56
PROVIDERS: ATTEND Internal Medicine Hematology & Oncology
PROC: 30233R1 Transfusion of Nonautologous Platelets into Peripheral Vein, Percutaneous Approach (ICD-10-PCS; principal; 2018-05-05)
DX: D69.6 Thrombocytopenia, unspecified (principal); C21.0 Malignant neoplasm of anus, unspecified; Z21 Asymptomatic human immunodeficiency virus [HIV] infection status
CPT/HCPCS: 36415; 36430; 81003; 81015; 85025; 86850; 86900; 86901; 87086; 87186; P9034

== ENCOUNTER 2018-06-13 07:57 | Inpatient (IN) | payer OTHER ==
[2018-06-13 10:22] LABS: BASO % 0.4 % (0-2.0); EOS % 4.5 % (0-4.5); HEMATOCRIT 36.7 % (32.4-45.2); HEMOGLOBIN 12.7 GM/dL (10.7-15.3); LYMPH % 17.3 % (8-40); MCH 35.5 pg (25.7-33.7); MCHC 34.7 g/dl (32.0-36.0); MEAN CELL VOLUME 102.3 fl (80-96); MEAN PLT VOLUME 8.5 fl (7.5-11.1); MONO % 11.4 % (3.8-10.2); NEUT % 66.4 % (42.8-82.8); PLATELET COUNT 133 K/MM3 (134-434); RBC 3.59 M/mm3 (3.60-5.2); RDW 17.9 % (11.6-15.6); WHITE BLOOD COUNT 3.8 K/mm3 (4.0-10.0)
[2018-06-13 10:56] LABS: ALBUMIN 2.5 g/dl (3.4-5.0); ALK PHOS 133 U/L (45-117); ANION GAP 8 MMOL/L (8-16); BILIRUBIN,DIRECT 0.4 mg/dL (0.0-0.2); BILIRUBIN,TOTAL 0.7 mg/dL (0.2-1); BLOOD UREA NITROGEN 11 mg/dL (7-18); CALCIUM 7.8 mg/dL (8.5-10.1); CHLORIDE 109 mmol/L (98-107); CO2 27 mmol/L (21-32); CREATININE 0.9 mg/dL (0.55-1.3); GLUCOSE,RANDOM 89 mg/dL (74-106); POTASSIUM 4.4 mmol/L (3.5-5.1); SGOT/AST 30 U/L (15-37); SGPT/ALT 17 U/L (13-61); SODIUM 143 mmol/L (136-145); TOT PROT 7.8 g/dl (6.4-8.2)
[2018-06-13] MEDS ORDERED: DEXAMETHASONE INJECTION 10 MG in SODIUM CHLORIDE 50 ML IVPB ONE (11:45)
[2018-06-13] MEDS ORDERED: PALONOSETRON HCL 0.25 MG/5 ML VIAL IVPUSH ONE (11:45)
[2018-06-13] MEDS ORDERED: SODIUM CHLORIDE IV ONE (12:00)
[2018-06-13] MEDS ORDERED: FLUOROURACIL IV ONE (12:00)
--- NOTE | 2018-06-13 13:32 | PN ---
Progress Note (short form) - Note Progress Note: Patient seen and examined at bedside Patient endorses feeling tired and not having an appetite Being admitted for 5FU and mitomycin for anal SCC and needs inpatient monitoring given her past medical history Vital Signs Temperature 98.0 F 06/13/18 09:20 Pulse Rate 98 H 06/13/18 09:20 Respiratory Rate 22 H 06/13/18 09:20 Blood Pressure 113/72 06/13/18 09:20 O2 Sat by Pulse Oximetry (%) PE: Tired apperaring thin NAD RRR S1 S2 bibaslar crackles Soft non tender slightly distended bilateral lower extremity trace edema 06/13/18 06/13/18 09:25 09:25 WBC 3.8 L RBC 3.59 L Hgb 12.7 Hct 36.7 MCV 102.3 H MCHC 34.7 RDW 17.9 H Plt Count 133 L D Neutrophils % 66.4 D Lymphocytes % 17.3 D Monocytes % 11.4 H Eosinophils % 4.5 Basophils % 0.4 Sodium 143 Potassium 4.4 Chloride 109 H Carbon Dioxide 27 Anion Gap 8 BUN 11 Creatinine 0.9 Problem List: Anal Cancer HIV Hepatitis B Hepatitis C COPD Sarcoidosis of Lung HCC Liver Cirrhosis Plan: Patient being admitted for 5FU and mmitomycin for anal cancer Antiemetics pain control monitor labs Will call medicine to admit patient to inpatient services Patient needs inpatient monitoring while getting chemotherapy due to comorbidities, medical history, and current medical status. Discussed with Dr. Serrano Microblogged hospitalist for admission
--- NOTE | 2018-06-13 14:22 | HP ---
CHIEF COMPLAINT: admitted for next and final cycle of 5fu mitomycin, s/p completion of RT PCP: Dr. Nolasco ID: Dr. Herndon Oncology Dr. Serrano. 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 She is s/p chemotherapy and 28 cycles of RT. She will be admitted to [facility] for her final cycle of 5FU infusion. Patient feels well, in no acute distress. Wants to finish chemotherapy and get better. She denies any cough, fevers, sore throat or rhinorrhea. She further denies any chest pain or shortness of breath. Recent Travel: none reported PAST MEDICAL HISTORY: COPD bells palsy HCC (hepatocellular carcinoma) Hepatitis B and C HIV (on HAART), follows at the [facility] Hypertension Squamous cell cancer (anal) PAST SURGICAL HISTORY: Social History: Smoking: former smoker Alcohol: former Drugs: yes, cocaine at age 18-18 Family History: Allergies piperacillin sodium [From Zosyn] Allergy (Mild, Verified 04/18/18 10:29) Itching tazobactam sodium [From Zosyn] Allergy (Mild, Verified 04/18/18 10:29) Itching vancomycin Adverse Reaction (Intermediate, Verified 04/18/18 10:29) Difficulty Breathing lactose-intolerance Adverse Reaction (Unknown, Uncoded 04/18/18 10:29) HOME MEDICATIONS: Home Medications Medication Instructions Recorded Ergocalciferol (Vitamin D2) 50,000 unit PO Q7D 30 Days #4 12/23/17 [Vitamin D2] capsule Lactulose [Cephulac -] 10 gm PO DAILY PRN 30 Days #1 03/04/18 bottle Abacavir/Dolutegravir/Lamivudi 1 each PO DAILY #30 tablet 03/17/18 [Triumeq Tablet] Albuterol Sulfate Inhaler - 1 inh PO Q6H PRN #1 inhaler 03/17/18 [Ventolin HFA Inhaler -] Tiotropium [place] [Spiriva 4 gm IH DAILY #1 mist.inhal 03/17/18 Respimat] clonazePAM [Klonopin -] 0.25 mg PO BID PRN #60 tablet MDD 2 04/07/18 Abacavir/Dolutegravir/Lamivudi 1 each PO DAILY 04/15/18 [Triumeq Tablet] Fosfomycin Tromethamine [Monurol 3 gm PO ONCE #1 packet 05/10/18 (Nf) -] Oxycodone HCl/Acetaminophen 1 each PO TID PRN #70 tablet MDD 3 05/24/18 [Percocet 10-325 mg Tablet] PHYSICAL EXAMINATION Vital Signs - 24 hr 06/13/18 09:20 Temperature 98.0 F Pulse Rate 98 H Respiratory 22 H Rate Blood Pressure 113/72 GENERAL: Awake, alert, and fully oriented, in no acute distress. HEAD: Normal with no signs of trauma. EYES: Pupils equal, round and reactive to light, extraocular movements intact, sclera anicteric, conjunctiva clear. No lid lag. EARS, NOSE, THROAT: Ears normal, nares patent, oropharynx clear without exudates. Moist mucous membranes. NECK: Normal range of motion, supple without lymphadenopathy, JVD, or masses. LUNGS: Breath sounds equal, mild/faint wheezing on rul HEART: Regular rate and rhythm, normal S1 and S2 without murmur, rub or gallop. ABDOMEN: mildly distended, + bowel sounds UPPER EXTREMITIES: No clubbing. No peripheral edema. LOWER EXTREMITIES: No calf tenderness. No peripheral edema. NEUROLOGICAL: Normal speech. PSYCHIATRIC: Cooperative. Good eye contact. Appropriate mood and affect. SKIN: Warm, dry, normal turgor, no rashes or lesions noted, normal capillary refill. Laboratory Results - last 24 hr 06/13/18 06/13/18 09:25 09:25 WBC 3.8 L RBC 3.59 L Hgb 12.7 Hct 36.7 MCV 102.3 H MCH 35.5 H MCHC 34.7 RDW 17.9 H Plt Count 133 L D MPV 8.5 Absolute Neuts (auto) 2.5 Neutrophils % 66.4 D Lymphocytes % 17.3 D Monocytes % 11.4 H Eosinophils % 4.5 Basophils % 0.4 Nucleated RBC % 0 Sodium 143 Potassium 4.4 Chloride 109 H Carbon Dioxide 27 Anion Gap 8 BUN 11 Creatinine 0.9 Creat Clearance w eGFR > 60 Random Glucose 89 Calcium 7.8 L Magnesium 2.0 Total Bilirubin 0.7 Direct Bilirubin 0.4 H AST 30 ALT 17 Alkaline Phosphatase 133 H Total Protein 7.8 Albumin 2.5 L ASSESSMENT/PLAN: Patient is a 63 year old female with a significant past medical history of 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 She is s/p chemotherapy and 28 cycles of RT. She will be admitted to [facility] for cycle of 5FU infusion. Patient feels well, in no acute distress. Wants to finish chemotherapy and get better. She denies any cough, fevers, sore throat or rhinorrhea. She further denies any chest pain or shortness of breath. ------- COPD bells palsy HCC (hepatocellular carcinoma) Hepatitis B and C HIV (on HAART), follows at the [facility] Hypertension Squamous cell cancer (anal) Anal Cancer ------ Heme/Onc: Squamous cell cancer (anal). Treatment with 5fu per oncology/hematology via right subclavian mediport. Will monitor daily labs, monitor her tolerance to chemo and assist in treating symptoms. Encourage nutrition and oral hydration. will consult dietary for help in caloric intake while on chemo. Monitor daily labs. Card: Hypertension. controlled. monitor BPs. noted to have low BP today, but asymptomatic. start ivf hydration if bp remains low. Neuro: [place] palsy. history. outpatient follow up. Pulm: COPD. very mild wheezing noted on RUL. duonebs prn. patient stable on room air. monitor. ID: HIV on [place]. Dr. Herndon following. fen Poor appetite/poor nutrition reported, will consult dietary for close monitoring of caloric intake. monitor electrolytes prophy protonix will hold off on lovenox/heparin [place] [id number] on 05/06. will instead order SCDs and PT. physical therapy incentive spirometer full code ] Visit type - Emergency Visit Emergency Visit: Yes ED Registration Date: 06/13/18 Care time: The patient presented to the Emergency Department on the above date and was hospitalized for further evaluation of their emergent condition. - New Patient This patient is new to me today: Yes Date on this admission: 06/13/18 - Critical Care Critical Care patient: No
--- NOTE | 2018-06-13 16:50 | CON.ID ---
Consult Consult Specialty:: infectious disease Referred by:: dr villanueva Reason for Consultation:: hiv - History of Present Illness Chief Complaint: chemo for anal cancer History of Present Illness: 62 yo female with stable hiv - cd4 270, viral load undectable found to have anal cancer on routince screening colonoscopy she is s/p RT and is now admitted for chemotherapy c/o fatigue no fevers or chills no dysuria had a uti with ecoli esbl treated successfully with fofomycin as outpt - History Source History Provided By: Patient, Medical Record Limitations to Obtaining History: No Limitations - Past Medical History Pulmonary: Yes: Other (Sarcoidosis. Pulmonary aspergilloma.) Gastrointestinal: Yes: Other (Chronic liver disease with biopsy 08/2012 showing stage 3 fibrosis (stage 4 is cirrhosis). ) Hepatobiliary: Yes: Other (Chronic liver disease. prior hep c anitiobdy positive , vl negative, hep b core positive , vl negative) Renal/: Yes: Renal Failure (remote history) ...LMP: 12/19/06 Infectious Disease: Yes: Other (HIV positive. 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 Followed by Drs. Villanueva and Tangela. 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 SHE HAS A HISTORY OF SUBSTANCE ABUSE(NOT SURE IF IT WAS ALCOHOL OR OPIATES) - Past Surgical History Past Surgical History: Yes: Cholecystectomy - Alcohol/Substance Use Hx Alcohol Use: Yes (none x 10 years) - Smoking History Smoking history: Former smoker Have you smoked in the past 12 months: No Aproximately how many cigarettes per day: 5 If you are a former smoker, when did you quit?: 1999 - Social History Usual Living Arrangement: With Child ADL: Support Services Place of : [facility] History of Recent Travel: No Home Medications - Allergies Allergies/Adverse Reactions: Allergies Allergy/AdvReac Type Severity Reaction Status Date / Time piperacillin sodium Allergy Mild Itching Verified 04/18/18 10:29 [From Zosyn] tazobactam sodium Allergy Mild Itching Verified 04/18/18 10:29 [From Zosyn] vancomycin AdvReac Intermediate Difficulty Verified 04/18/18 10:29 Breathing lactose-intolerance AdvReac Unknown Uncoded 04/18/18 10:29 - Home Medications Home Medications: Ambulatory Orders Ergocalciferol (Vitamin D2) [Vitamin D2] 50,000 unit PO Q7D 30 Days #4 capsule 12/23/17 Lactulose [Cephulac -] 10 gm PO DAILY PRN 30 Days #1 bottle 03/04/18 Abacavir/Dolutegravir/Lamivudi [Triumeq Tablet] 1 each PO DAILY #30 tablet 03/17 Tiotropium [place] [Spiriva Respimat] 4 gm IH DAILY #1 mist.inhal 03/17/18 clonazePAM [Klonopin -] 0.25 mg PO BID PRN #60 tablet MDD 2 04/07/18 Abacavir/Dolutegravir/Lamivudi [Triumeq Tablet] 1 each PO DAILY 04/15/18 Fosfomycin Tromethamine [Monurol (Nf) -] 3 gm PO ONCE #1 packet 05/10/18 Oxycodone HCl/Acetaminophen [Percocet 10-325 mg Tablet] 1 each PO TID PRN #70 tablet MDD 3 05/24/18 Albuterol Sulfate Inhaler - [Ventolin HFA Inhaler -] 2 inh PO Q6H PRN 06/13/18 Family Disease History - Family Disease History Family Disease History: Heart Disease: Mother (d. [place], HTN, age 68), [place]: Father ( adrenal gland) Review of Systems - Review of Systems Constitutional: reports: No Symptoms, Unintentional Wgt. Loss Eyes: reports: No Symptoms HENT: reports: No Symptoms Neck: reports: No Symptoms Cardiovascular: reports: No Symptoms Respiratory: reports: No Symptoms Gastrointestinal: reports: No Symptoms Genitourinary: reports: No Symptoms Physical Exam Vital Signs: Vital Signs Temperature 97.7 F 06/13/18 10:45 Pulse Rate 77 06/13/18 10:45 Respiratory Rate 16 06/13/18 10:45 Blood Pressure 87/61 L 06/13/18 10:45 O2 Sat by Pulse Oximetry (%) Constitutional: Yes: Well Nourished, No Distress Eyes: Yes: Conjunctiva Clear HENT: Yes: Normocephalic, Drooling. No: Pharyngeal Erythema, Thrush Neck: Yes: Supple Cardiovascular: Yes: Regular Rate and Rhythm Respiratory: Yes: Regular, CTA Bilaterally, Other (+port right chest wall) Gastrointestinal: Yes: Normal Bowel Sounds, Soft Extremities: Yes: WNL Labs: CBC, BMP 06/13/18 09:25 06/13/18 09:25 Problem List - Problems (1) Anal cancer Code(s): C21.0 - MALIGNANT NEOPLASM OF ANUS, UNSPECIFIED (2) HIV (human immunodeficiency virus infection) Code(s): Z21 - ASYMPTOMATIC HUMAN IMMUNODEFICIENCY VIRUS INFECTION STATUS Assessment/Plan for chemo to continue her triumeq- she has brought the meds with her
[2018-06-13] MEDS ORDERED: clonazePAM 0.5 MG TABLET PO PRN (16:53)
[2018-06-13] MEDS: oxyCODONE HCL 5 MG TABLET PO PRN ×2 (17:30→23:00)
[2018-06-13] MEDS: ACETAMINOPHEN 325 MG TABLET (FP) PO PRN ×2 (17:34→23:00)
[2018-06-13] MEDS ORDERED: ALBUTEROL SO4 2.5/IPRATROPIUM 0.5 INH SOL 3 ML VIAL.NEB. NEB PRN (18:27)
--- NOTE | 2018-06-13 20:29 | PN ---
Progress Note (short form) - Note Progress Note: Patient seen and examined Started chemotherapy Last Vital Signs Temp Pulse Resp BP Pulse Ox 97.5 F L 70 19 95/60 06/13/18 20:10 06/13/18 20:10 06/13/18 20:10 06/13/18 20:10 Cor: RSR, No murmurs, No gallops Lungs: Clear to P&A Abd: Soft, Normal bowel sounds, No organomegaly Ext:No significant edema Abnormal Lab Results 06/13/18 06/13/18 09:25 09:25 WBC 3.8 L RBC 3.59 L MCV 102.3 H MCH 35.5 H RDW 17.9 H Plt Count 133 L D Monocytes % 11.4 H Chloride 109 H Calcium 7.8 L Direct Bilirubin 0.4 H Alkaline Phosphatase 133 H Albumin 2.5 L Active Medications Generic Name Dose Route Start Last Admin Trade Name Freq PRN Reason Stop Dose Admin Acetaminophen 325 mg 06/13/18 17:05 06/13/18 17:34 Tylenol - PO 325 mg Q8H PRN Administration PAIN LEVEL 6-10 Albuterol/Ipratropium 1 amp 06/13/18 18:27 Duoneb - NEB Q6H PRN SHORTNESS OF BREATH Clonazepam 0.25 mg 06/13/18 16:53 Klonopin - PO BID PRN ANXIETY Fluorouracil 950 mg/ Sodium 519 mls @ 21.625 mls/hr 06/13/18 12:00 06/13/18 14:24 Chloride IV 06/14/18 11:59 21.625 mls/hr ONCE ONE Administration Fluorouracil 950 mg/ Sodium 519 mls @ 21.625 mls/hr 06/14/18 14:00 Chloride IV 06/15/18 13:59 ONCE@1400 ONE Non-Formulary Medication 1 each 06/14/18 10:00 Abacavir/Dolutegravir/Lamivudi [Triumeq Tablet] PO DAILY TERRENCE Ondansetron HCl 8 mg 06/13/18 14:52 Zofran Injection IVPB Q6H PRN NAUSEA AND/OR VOMITING Oxycodone HCl 10 mg 06/13/18 17:05 06/13/18 17:30 Roxicodone - PO 10 mg Q8H PRN Administration PAIN LEVEL 6-10 A/P Anal Cancer HIV Hepatitis B Hepatitis C COPD Sarcoidosis of Lung HCC Liver Cirrhosis 5- FU/Mitomycin for anal cancer ---monitor for toxicities
[2018-06-14 07:21] LABS: HEMATOCRIT 29.4 % (32.4-45.2); HEMOGLOBIN 9.6 GM/dL (10.7-15.3); MCH 33.7 pg (25.7-33.7); MCHC 32.8 g/dl (32.0-36.0); MEAN CELL VOLUME 102.8 fl (80-96); MEAN PLT VOLUME 8.6 fl (7.5-11.1); PLATELET COUNT 94 K/MM3 (134-434); RBC 2.86 M/mm3 (3.60-5.2); RDW 17.7 % (11.6-15.6); WHITE BLOOD COUNT 3.3 K/mm3 (4.0-10.0)
[2018-06-14 07:36] LABS: ALK PHOS 103 U/L (45-117); ANION GAP 7 MMOL/L (8-16); BILIRUBIN,TOTAL 0.6 mg/dL (0.2-1); BLOOD UREA NITROGEN 11 mg/dL (7-18); CALCIUM 7.6 mg/dL (8.5-10.1); CHLORIDE 109 mmol/L (98-107); CO2 27 mmol/L (21-32); CREATININE 0.8 mg/dL (0.55-1.3); GLUCOSE,RANDOM 104 mg/dL (74-106); SGOT/AST 23 U/L (15-37); SGPT/ALT 15 U/L (13-61); SODIUM 143 mmol/L (136-145); TOT PROT 6.3 g/dl (6.4-8.2)
--- NOTE | 2018-06-14 09:12 | PN ---
Physical Exam: SUBJECTIVE: Patient seen and examined; no events reported to me from overnight. BP remains acceptable; doing well with PO hydration. Chemo initiated and counts fell as expected. Reviewed research consultant reports and appreciate their input. Tolerating the chemo thus far. No evident toxicity at this juncture but will continue to monitor. ID recommended continuing their home HIV antiretrovirals. Monitoring on the floor. Today is day 2 for her SCC Anal cancer on 5-FU and Mitomycin. 10 sys ROS done and negative aside from HPI OBJECTIVE: Vital Signs Period Temp Pulse Resp BP Sys/Wade Pulse Ox Last 24 Hr 97.5 F-98.0 F 70-98 16-22 87-114/60-72 95 GENERAL: The patient is awake, alert, and fully oriented, in no acute distress. HEAD: Normal with no signs of trauma. EYES: PERRL, extraocular movements intact, sclera anicteric, conjunctiva clear. No ptosis. ENT: Ears normal, nares patent, oropharynx clear without exudates, moist mucous membranes. NECK: Trachea midline, full range of motion, supple. LUNGS: Breath sounds equal, clear to auscultation bilaterally, no wheezes, no crackles, no accessory muscle use. HEART: Regular rate and rhythm, S1, S2 without murmur, rub or gallop. Port in place. ABDOMEN: Soft, nontender, nondistended, normoactive bowel sounds, no guarding, no rebound, no hepatosplenomegaly, no masses. EXTREMITIES: 2+ pulses, warm, well-perfused, no edema. NEUROLOGICAL: Cranial nerves II through XII grossly intact. Normal speech, gait not observed. PSYCH: Normal mood, normal affect. Laboratory Results - last 24 hr 06/13/18 06/13/18 06/14/18 09:25 09:25 06:10 WBC 3.8 L 3.3 L RBC 3.59 L 2.86 L Hgb 12.7 9.6 L Hct 36.7 29.4 L D MCV 102.3 H 102.8 H MCH 35.5 H 33.7 MCHC 34.7 32.8 RDW 17.9 H 17.7 H Plt Count 133 L D 94 L D MPV 8.5 8.6 Absolute Neuts (auto) 2.5 Neutrophils % 66.4 D Lymphocytes % 17.3 D Monocytes % 11.4 H Eosinophils % 4.5 Basophils % 0.4 Nucleated RBC % 0 Sodium 143 Potassium 4.4 Chloride 109 H Carbon Dioxide 27 Anion Gap 8 BUN 11 Creatinine 0.9 Creat Clearance w eGFR > 60 Random Glucose 89 Calcium 7.8 L Magnesium 2.0 Total Bilirubin 0.7 Direct Bilirubin 0.4 H AST 30 ALT 17 Alkaline Phosphatase 133 H Total Protein 7.8 Albumin 2.5 L 06/14/18 06:10 WBC RBC Hgb Hct MCV MCH MCHC RDW Plt Count MPV Absolute Neuts (auto) Neutrophils % Lymphocytes % Monocytes % Eosinophils % Basophils % Nucleated RBC % Sodium 143 Potassium 4.0 Chloride 109 H Carbon Dioxide 27 Anion Gap 7 L BUN 11 Creatinine 0.8 Creat Clearance w eGFR > 60 Random Glucose 104 Calcium 7.6 L Magnesium 2.0 Total Bilirubin 0.6 Direct Bilirubin AST 23 ALT 15 Alkaline Phosphatase 103 Total Protein 6.3 L Albumin 2.0 L Active Medications Generic Name Dose Route Start Last Admin Trade Name Freq PRN Reason Stop Dose Admin Acetaminophen 325 mg 06/13/18 17:05 06/13/18 23:00 Tylenol - PO 325 mg Q8H PRN Administration PAIN LEVEL 6-10 Albuterol/Ipratropium 1 amp 06/13/18 18:27 Duoneb - NEB Q6H PRN SHORTNESS OF BREATH Clonazepam 0.25 mg 06/13/18 16:53 Klonopin - PO BID PRN ANXIETY Fluorouracil 950 mg/ Sodium 519 mls @ 21.625 mls/hr 06/13/18 12:00 06/13/18 14:24 Chloride IV 06/14/18 11:59 21.625 mls/hr ONCE ONE Administration Fluorouracil 950 mg/ Sodium 519 mls @ 21.625 mls/hr 06/14/18 14:00 Chloride IV 06/15/18 13:59 ONCE@1400 ONE Multivitamins/Minerals/Vitamin C 1 tab 06/14/18 10:00 Tab-A-Vit - PO DAILY TERRENCE Non-Formulary Medication 1 each 06/14/18 10:00 Abacavir/Dolutegravir/Lamivudi [Triumeq Tablet] PO DAILY TERRENCE Ondansetron HCl 8 mg 06/13/18 14:52 Zofran Injection IVPB Q6H PRN NAUSEA AND/OR VOMITING Oxycodone HCl 10 mg 06/13/18 17:05 06/13/18 23:00 Roxicodone - PO 10 mg Q8H PRN Administration PAIN LEVEL 6-10 ASSESSMENT/PLAN: Mrs. Wei is a 62 y/o female on the medicine service for chemotherapy as she has too many comorbidities to manage as an outpatient. She is doing well. Consulting reports appreciated. She is day 2/5 5-FU and mitomycin. Continue present treatment and monitoring. 1) SCC Anal Cancer on chemotherapy, day 2/5 2) HIV (undetectable viral load, QT0=259, ID following) 3) History of Pulmonary Sarcoidosis 4) History of Aspergillosis 5) Hepatitis B and C 6) Documented history of substance abuse, in remission 7) H/O ESBL UTI 8) HCC 9) COPD (GOLD stage unknown, not in exacerbation) 10) History of Vivas's Palsy 11) History of HTN 12) History of AI Hemolytic Anemia 13) Hypoalbuminemia 14) Chemotherapy associated pancytopenia (Hb 9 (12), WBC 3 (3), Plt 94 (133) Overall, the patient continues to do well with her chemo and should continue as per specialty services. She is tolerating it well and we will continue to monitor her counts, transfusing as per heme guidelines and monitoring for any bleeding, etc. Continuing her home HIV medicine per Infectious Disease. No pulmonary issues relating to her PMH seem to be acute, but will continue to monitor and have a low threshold to consult pulmonary medicine should her respiratory status decompensate. We will monitor for fever and should she become febrile would recommend empiric coverage per ID and panculture. Her GI history is unchanged with no acute findings. No evidence of acute COPD exacerbation. Dietary consult given marked hypoalbuminemia and current chemotherapy Plan to continue on chemo treatments, monitoring for toxicity and continue current meds. If her BP drops again would be appropriate to bolus but currently encouraging PO hydration. Labs in AM Monitor VS SCDs for AC Code Status Unchanged Appreciate input of consulting services Visit type - Emergency Visit Emergency Visit: No - New Patient This patient is new to me today: Yes Date on this admission: 06/14/18 - Critical Care Critical Care patient: No
[2018-06-14] MEDS: MULTIVITAMINS (DAILY MVI) TABLET (FP) PO SCH (09:46)
[2018-06-14] MEDS: oxyCODONE HCL 5 MG TABLET PO PRN (09:47)
[2018-06-14] MEDS: ONDANSETRON 4 MG/2 ML VIAL IVPB PRN (09:54)
[2018-06-14] MEDS ORDERED: PT OWN MED DRAWER 7, Y5N ONE ×4 (13:27→17:58)
--- NOTE | 2018-06-14 13:36 | PN ---
Progress Note (short form) - Note Progress Note: Patient seen and examined at bedside Patient endorses feel ok today she was able to eat all of her lunch appetite is better today Vital Signs Temperature 97.7 F 06/14/18 10:00 Pulse Rate 73 06/14/18 10:00 Respiratory Rate 17 06/14/18 10:00 Blood Pressure 90/57 L 06/14/18 10:00 O2 Sat by Pulse Oximetry (%) 98 06/14/18 09:00 PE: Tired appearing thin NAD RRR S1 S2 bibaslar crackles Soft non tender distended bilateral lower extremity trace edema 06/14/18 06/14/18 06/14/18 06:10 06:10 06:10 WBC 3.3 L RBC 2.86 L Hgb 9.6 L Hct 29.4 L D MCV 102.8 H MCHC 32.8 RDW 17.7 H Plt Count 94 L D Sodium 143 Potassium 4.0 Chloride 109 H Carbon Dioxide 27 Anion Gap 7 L BUN 11 Creatinine 0.8 Blood Type A POSITIVE Antibody Screen Negative Problem List: Anal Cancer HIV Hepatitis B Hepatitis C COPD Sarcoidosis of Lung HCC Liver Cirrhosis Plan: 5FU and mitomycin for anal cancer Antiemetics pain control monitor labs Patient needs inpatient monitoring while getting chemotherapy due to comorbidities, medical history, and current medical status. Discussed with Dr. Serrano appreciate medical care by hospitalist team
[2018-06-14] MEDS ORDERED: FLUOROURACIL IV ONE (14:00)
[2018-06-14] MEDS ORDERED: SODIUM CHLORIDE IV ONE (14:00)
--- NOTE | 2018-06-14 16:08 | PN ---
Progress Note (short form) - Note Progress Note: notes some abdominal bloating ate today +bm formed stool and alot of air no diarrhea Vital Signs Period Temp Pulse Resp BP Sys/Wade Pulse Ox Last 24 Hr 97.5 F-97.9 F 70-87 17-19 85-114/53-69 95-98 cor-rrr lungs clear abd distended, soft, +liver edge ext trace edema +port CBC, BMP 06/14/18 06:10 06/14/18 06:10 a/p anal cancer on chemo per oncology HIV- continue art, continue valtrex contact isolation- history esbl ecoli UTI Problem List - Problems (1) Anal cancer Code(s): C21.0 - MALIGNANT NEOPLASM OF ANUS, UNSPECIFIED (2) HIV (human immunodeficiency virus infection) Code(s): Z21 - ASYMPTOMATIC HUMAN IMMUNODEFICIENCY VIRUS INFECTION STATUS
[2018-06-14] MEDS: valACYclovir HCL 500 MG TABLET (FP) PO SCH (16:34)
--- NOTE | 2018-06-14 16:49 | PN ---
Teaching Attending Note Name of Resident: Elmer Ji ATTENDING PHYSICIAN STATEMENT I saw and evaluated the patient. I reviewed the resident's note and discussed the case with the resident. I agree with the resident's findings and plan as documented. SUBJECTIVE: Patient seen and examined Concerned about anorexia , weight loss, Last Vital Signs Temp Pulse Resp BP Pulse Ox 97.9 F 71 18 85/53 L 98 06/14/18 15:02 06/14/18 15:02 06/14/18 15:02 06/14/18 15:02 06/14/18 09:00 HEENT: DENNY, EOM Intact Oropharynx: No thrush, No mucositis, facial Cor: RSR, No murmurs, No gallops Lungs: scattered rhonchi Abd: Soft, distended Ext:No significant edema Skin: No rashes, Integument intact CBC, BMP 06/14/18 06:10 06/14/18 06:10 Current Medications Generic Name Dose Route Start Last Admin Trade Name Freq PRN Reason Stop Dose Admin Acetaminophen 325 mg 06/13/18 17:05 06/13/18 23:00 Tylenol - PO 325 mg Q8H PRN Administration PAIN LEVEL 6-10 Albuterol/Ipratropium 1 amp 06/13/18 18:27 Duoneb - NEB Q6H PRN SHORTNESS OF BREATH Clonazepam 0.25 mg 06/13/18 16:53 Klonopin - PO BID PRN ANXIETY Fluorouracil 950 mg/ Sodium 519 mls @ 21.625 mls/hr 06/14/18 14:00 06/14/18 13:45 Chloride IV 06/15/18 13:59 21.625 mls/hr ONCE@1400 ONE Administration Fluorouracil 950 mg/ Sodium 519 mls @ 21.625 mls/hr 06/15/18 14:00 Chloride IV 06/16/18 13:59 ONCE ONE Multivitamins/Minerals/Vitamin C 1 tab 06/14/18 10:00 06/14/18 09:46 Tab-A-Vit - PO 1 tab DAILY TERRENCE Administration Non-Formulary Medication 1 each 06/14/18 16:00 06/14/18 16:33 Abacavir/Dolutegravir/Lamivudi [Triumeq Tablet] PO 1 each DAILY TERRENCE Administration Ondansetron HCl 8 mg 06/13/18 14:52 06/14/18 09:54 Zofran Injection IVPB 8 mg Q6H PRN Administration NAUSEA AND/OR VOMITING Oxycodone HCl 10 mg 06/13/18 17:05 06/14/18 09:47 Roxicodone - PO 10 mg Q8H PRN Administration PAIN LEVEL 6-10 Valacyclovir HCl 500 mg 06/14/18 16:15 06/14/18 16:34 Valtrex - PO 500 mg DAILY TERRENCE Administration Impression: Anal cancer Infusional chemotherapy HIV Abdominal distension Plan : Continued infusional therapy. Monitor distension and Gi OBJECTIVE: ASSESSMENT AND PLAN:
[2018-06-15] MEDS: oxyCODONE HCL 5 MG TABLET PO PRN (06:38)
[2018-06-15] MEDS: MULTIVITAMINS (DAILY MVI) TABLET (FP) PO SCH (09:54)
[2018-06-15] MEDS: valACYclovir HCL 500 MG TABLET (FP) PO SCH (09:54)
[2018-06-15] MEDS ORDERED: SODIUM CHLORIDE 1,000 ML IV STA (11:05)
[2018-06-15] MEDS: SIMETHICONE 80 MG TAB.CHEW (FP) PO PRN (13:28)
[2018-06-15] MEDS ORDERED: FLUOROURACIL IV ONE ×2 (14:00→19:15)
[2018-06-15] MEDS ORDERED: SODIUM CHLORIDE IV ONE ×2 (14:00→19:15)
--- NOTE | 2018-06-15 14:50 | PN ---
Progress Note (short form) - Note Progress Note: complains of abdominal pain gas +bms- soft, no diarrhea Vital Signs Period Temp Pulse Resp BP Sys/Wade Pulse Ox Last 24 Hr 97.6 F-98.0 F 63-95 18-20 82-92/53-66 99 cor-rrr lungs clear abdominal distention +tender periumbilical area to palpation ext no edema CBC, BMP 06/14/18 06:10 06/14/18 06:10 a/p abdominal pain- ?incarcerated umbilical hernia d/w oncology will get ct scan abd/pelvis stat gi/surgery consult- ivf, npo anal cancer on chemo per oncology HIV- continue art, continue valtrex contact isolation- history esbl ecoli UTI d/w oncology d/w hospitalist d/w GI Dr Escobra call in to Dr Shepherd d/w nurse Problem List - Problems (1) Anal cancer Code(s): C21.0 - MALIGNANT NEOPLASM OF ANUS, UNSPECIFIED (2) HIV (human immunodeficiency virus infection) Code(s): Z21 - ASYMPTOMATIC HUMAN IMMUNODEFICIENCY VIRUS INFECTION STATUS
[2018-06-15] MEDS: ONDANSETRON 4 MG/2 ML VIAL IVPB PRN (15:00)
[2018-06-15] MEDS: ACETAMINOPHEN 325 MG TABLET (FP) PO PRN (15:27)
[2018-06-15] MEDS: SODIUM CHLORIDE 1,000 ML IV SCH (15:27)
--- NOTE | 2018-06-15 15:46 | PN ---
Progress Note (short form) - Note Progress Note: Patient seen and examined at bedside Complaining of severe 05/18 abdominal pain Vital Signs Temperature 98.3 F 06/15/18 14:48 Pulse Rate 89 06/15/18 14:48 Respiratory Rate 20 06/15/18 14:48 Blood Pressure 104/69 06/15/18 14:48 O2 Sat by Pulse Oximetry (%) 99 06/15/18 09:00 PE: Tired appearing thin NAD RRR S1 S2 bibaslar crackles Soft extremely tender to palpation. Mass felt at the umbilicus which is possibly a strangulated vs incarcerated hernia bilateral lower extremity trace edema Laboratory Last Values WBC 3.3 K/mm3 (4.0-10.0) L 06/14/18 06:10 RBC 2.86 M/mm3 (3.60-5.2) L 06/14/18 06:10 Hgb 9.6 GM/dL (10.7-15.3) L 06/14/18 06:10 Hct 29.4 % (32.4-45.2) L D 06/14/18 06:10 MCV 102.8 fl (80-96) H 06/14/18 06:10 MCH 33.7 pg (25.7-33.7) 06/14/18 06:10 MCHC 32.8 g/dl (32.0-36.0) 06/14/18 06:10 RDW 17.7 % (11.6-15.6) H 06/14/18 06:10 Plt Count 94 K/MM3 (134-434) L D 06/14/18 06:10 MPV 8.6 fl (7.5-11.1) 06/14/18 06:10 Absolute Neuts (auto) 2.5 K/mm3 (1.5-8.0) 06/13/18 09:25 Neutrophils % 66.4 % (42.8-82.8) D 06/13/18 09:25 Lymphocytes % 17.3 % (8-40) D 06/13/18 09:25 Monocytes % 11.4 % (3.8-10.2) H 06/13/18 09:25 Eosinophils % 4.5 % (0-4.5) 06/13/18 09:25 Basophils % 0.4 % (0-2.0) 06/13/18 09:25 Nucleated RBC % 0 % (0-0) 06/13/18 09:25 Sodium 143 mmol/L (136-145) 06/14/18 06:10 Potassium 4.0 mmol/L (3.5-5.1) 06/14/18 06:10 Chloride 109 mmol/L (98-107) H 06/14/18 06:10 Carbon Dioxide 27 mmol/L (21-32) 06/14/18 06:10 Anion Gap 7 MMOL/L (8-16) L 06/14/18 06:10 BUN 11 mg/dL (7-18) 06/14/18 06:10 Creatinine 0.8 mg/dL (0.55-1.3) 06/14/18 06:10 Creat Clearance w eGFR > 60 (>60) 06/14/18 06:10 Random Glucose 104 mg/dL (74-106) 06/14/18 06:10 Calcium 7.6 mg/dL (8.5-10.1) L 06/14/18 06:10 Magnesium 2.0 mg/dL (1.8-2.4) 06/14/18 06:10 Total Bilirubin 0.6 mg/dL (0.2-1) 06/14/18 06:10 Direct Bilirubin 0.4 mg/dL (0.0-0.2) H 06/13/18 09:25 AST 23 U/L (15-37) 06/14/18 06:10 ALT 15 U/L (13-61) 06/14/18 06:10 Alkaline Phosphatase 103 U/L (45-117) 06/14/18 06:10 Total Protein 6.3 g/dl (6.4-8.2) L 06/14/18 06:10 Albumin 2.0 g/dl (3.4-5.0) L 06/14/18 06:10 Carcinoembryonic Ag 0.9 ng/mL (0.0-4.7) 06/13/18 09:25 Blood Type A POSITIVE 06/14/18 06:10 Antibody Screen Negative 06/14/18 06:10 Problem List: Anal Cancer HIV Hepatitis B Hepatitis C COPD Sarcoidosis of Lung HCC Liver Cirrhosis possible incarcerated vs strangulated hernia Plan: Will send stat labs send stat lactic acid STAT surgery consult already called-possible hernia may be able to be reduced with morphine STAT CT scan abdomen with IV contrast-Saline lock 20guage placed 5FU and mitomycin for anal cancer may need to be held if patient needs emergenct surgery-discussed with patient Medical consult Antiemetics pain control Patient needs inpatient monitoring while getting chemotherapy due to comorbidities, medical history, and current medical status. Discussed with Dr. Serrano appreciate medical care by hospitalist team
--- NOTE | 2018-06-15 16:09 | PN ---
Teaching Attending Note Name of Resident: Elmer Ji ATTENDING PHYSICIAN STATEMENT I saw and evaluated the patient. I reviewed the resident's note and discussed the case with the resident. I agree with the resident's findings and plan as documented. SUBJECTIVE: Patient seen and examined Developed severe local umbilical tenderness 10/10 Rest of abdomen - non tender with good bowel sounds Last Vital Signs Temp Pulse Resp BP Pulse Ox 98.3 F 89 20 104/69 99 06/15/18 14:48 06/15/18 14:48 06/15/18 14:48 06/15/18 14:48 06/15/18 09:00 Cor: RSR, No murmurs, No gallops Lungs: Clear to P&A Abd: palpable umbilical mass, tender Ext:No significant edema Skin: No rashes, Integument intact CBC, BMP 06/14/18 06:10 06/14/18 06:10 Current Medications Generic Name Dose Route Start Last Admin Trade Name Freq PRN Reason Stop Dose Admin Acetaminophen 325 mg 06/13/18 17:05 06/15/18 15:27 Tylenol - PO 325 mg Q8H PRN Administration PAIN LEVEL 6-10 Albuterol/Ipratropium 1 amp 06/13/18 18:27 Duoneb - NEB Q6H PRN SHORTNESS OF BREATH Clonazepam 0.25 mg 06/13/18 16:53 Klonopin - PO BID PRN ANXIETY Emollient Ointment 1 applic 06/15/18 22:00 Aquaphor - TP BID TERRENCE IV Flush 10 ml 06/15/18 11:04 Luisa-Cath Flush IVPUSH PRN PRN FLUSH Fluorouracil 950 mg/ Sodium 519 mls @ 21.625 mls/hr 06/15/18 14:00 Chloride IV 06/16/18 13:59 ONCE ONE Fluorouracil 950 mg/ Sodium 519 mls @ 21.625 mls/hr 06/16/18 14:00 Chloride IV 06/17/18 13:59 ONCE ONE Sodium Chloride 1,000 mls @ 75 mls/hr 06/15/18 15:15 06/15/18 15:27 Normal Saline - IV 75 mls/hr ASDIR TERRENCE Administration Multivitamins/Minerals/Vitamin C 1 tab 06/14/18 10:00 06/15/18 09:54 Tab-A-Vit - PO 1 tab DAILY TERRENCE Administration Non-Formulary Medication 1 each 06/14/18 16:00 06/15/18 09:56 Abacavir/Dolutegravir/Lamivudi [Triumeq Tablet] PO 1 each DAILY TERRENCE Administration Ondansetron HCl 8 mg 06/13/18 14:52 06/15/18 15:00 Zofran Injection IVPB 8 mg Q6H PRN Administration NAUSEA AND/OR VOMITING Oxycodone HCl 10 mg 06/13/18 17:05 06/15/18 06:38 Roxicodone - PO 10 mg Q8H PRN Administration PAIN LEVEL 6-10 Simethicone 80 mg 06/15/18 11:06 06/15/18 13:28 Mylicon - PO 80 mg Q4H PRN Administration GAS Valacyclovir HCl 500 mg 06/14/18 16:15 06/15/18 09:54 Valtrex - PO 500 mg DAILY TERRENCE Administration Impression: Chemotherapy Anal ca ? incarcerated umbilical hernia HIV Plan: Hold chemotherapy GI and Surgical assessment ? possible to reduce hernia - to complete chemotherapy to get patient thru megan of myelosuppression and surgical repair thereafter . Patient aware of situation. OBJECTIVE: ASSESSMENT AND PLAN:
--- NOTE | 2018-06-15 16:12 | PN ---
Physical Exam: SUBJECTIVE: Patient seen and examined. C/o gas and abdominal pain and bloating. She says she can only eat small quantities or otherwise her stomach feels stretched. She reports she had a formed stool today for the first time after many days of diarrhea. BP still low. Tolerating the chemo thus far. No evident toxicity at this juncture but will continue to monitor. Today is day 3/5 for her SCC Anal cancer on 5-FU and Mitomycin. OBJECTIVE: Vital Signs Period Temp Pulse Resp BP Sys/Wade Pulse Ox Last 24 Hr 97.6 F-98.3 F 63-95 18-20 82-104/54-69 99 GENERAL: The patient is awake, alert, and fully oriented, in no acute distress. HEAD: Normal with no signs of trauma. EYES: PERRL, extraocular movements intact, sclera anicteric, conjunctiva clear. No ptosis. ENT: Ears normal, nares patent, oropharynx clear without exudates, moist mucous membranes. NECK: Trachea midline, full range of motion, supple. LUNGS: Breath sounds equal, clear to auscultation bilaterally, no wheezes, no crackles, no accessory muscle use. HEART: Regular rate and rhythm, S1, S2 without murmur, rub or gallop. ABDOMEN: Distended, diffusely tender, protrusion at umbilicus, normoactive bowel sounds EXTREMITIES: 2+ pulses, warm, well-perfused, no edema. NEUROLOGICAL: No facial droop, normal speech, slow, steady gate PSYCH: Normal mood, normal affect. SKIN: Dry skin to legs b/l, no rashes or lesions noted Active Medications Generic Name Dose Route Start Last Admin Trade Name Helen PRN Reason Stop Dose Admin Acetaminophen 325 mg 06/13/18 17:05 06/15/18 15:27 Tylenol - PO 325 mg Q8H PRN Administration PAIN LEVEL 6-10 Albuterol/Ipratropium 1 amp 06/13/18 18:27 Duoneb - NEB Q6H PRN SHORTNESS OF BREATH Clonazepam 0.25 mg 06/13/18 16:53 Klonopin - PO BID PRN ANXIETY Emollient Ointment 1 applic 06/15/18 22:00 Aquaphor - TP BID TERRENCE IV Flush 10 ml 06/15/18 11:04 Luisa-Cath Flush IVPUSH PRN PRN FLUSH Fluorouracil 950 mg/ Sodium 519 mls @ 21.625 mls/hr 06/15/18 14:00 Chloride IV 06/16/18 13:59 ONCE ONE Fluorouracil 950 mg/ Sodium 519 mls @ 21.625 mls/hr 06/16/18 14:00 Chloride IV 06/17/18 13:59 ONCE ONE Sodium Chloride 1,000 mls @ 75 mls/hr 06/15/18 15:15 06/15/18 15:27 Normal Saline - IV 75 mls/hr ASDIR TERRENCE Administration Multivitamins/Minerals/Vitamin C 1 tab 06/14/18 10:00 06/15/18 09:54 Tab-A-Vit - PO 1 tab DAILY TERRENCE Administration Non-Formulary Medication 1 each 06/14/18 16:00 06/15/18 09:56 Abacavir/Dolutegravir/Lamivudi [Triumeq Tablet] PO 1 each DAILY TERRENCE Administration Ondansetron HCl 8 mg 06/13/18 14:52 06/15/18 15:00 Zofran Injection IVPB 8 mg Q6H PRN Administration NAUSEA AND/OR VOMITING Oxycodone HCl 10 mg 06/13/18 17:05 06/15/18 06:38 Roxicodone - PO 10 mg Q8H PRN Administration PAIN LEVEL 6-10 Simethicone 80 mg 06/15/18 11:06 06/15/18 13:28 Mylicon - PO 80 mg Q4H PRN Administration GAS Valacyclovir HCl 500 mg 06/14/18 16:15 06/15/18 09:54 Valtrex - PO 500 mg DAILY TERRENCE Administration ASSESSMENT/PLAN: 62 year-old female on the medicine service for chemotherapy as she has too many comorbidities to manage as an outpatient. She is day 3/5 5-FU and mitomycin. Abdominal distension/pain -Concern for incarcerated hernia -STAT CT of abdomen/pelvis with PO and IV contrast ordered -Surgical consult with Dr. Shepherd tomorrow -Alesha for nausea Squamous cell anal cancer -Day 3/5 5-FU via right subclavian mediport -Tolerating chemo -Oxycodone 10 mg for pain -Encourage PO intake -Monitor daily labs -Followed by oncologist Dr. Serrano Hypertension -Remains hypotensive today -82/57 -> 104/69 after 1 L fluid bolus -Continue to monitor BP COPD -Stable, on room air -Duonebs PRN HIV -Re-started on [place] Triumeq -Valtrex 500 mg daily -Contact isolation d/t ESBL ecoli UTI -Followed by Dr. Yanick Blank -Klonopin 0.25 mg BID FEN -NS @ 100 cc/hr -Replete electrolytes as needed -Regular diet and Ensure TID Prophylaxis GI: Protonix DVT SCDs and PT -No chemical prophylaxs d/t decreased platelets. FULL CODE Visit type - Emergency Visit Emergency Visit: No - New Patient This patient is new to me today: Yes Date on this admission: 06/15/18 - Critical Care Critical Care patient: No
[2018-06-15 16:18] LABS: BASO % 0.3 % (0-2.0); EOS % 3.4 % (0-4.5); HEMATOCRIT 32.9 % (32.4-45.2); HEMOGLOBIN 11.2 GM/dL (10.7-15.3); LYMPH % 17.6 % (8-40); MCH 35.2 pg (25.7-33.7); MCHC 34.1 g/dl (32.0-36.0); MEAN CELL VOLUME 103.1 fl (80-96); MEAN PLT VOLUME 8.5 fl (7.5-11.1); MONO % 10.9 % (3.8-10.2); NEUT % 67.8 % (42.8-82.8); PLATELET COUNT 101 K/MM3 (134-434); RDW 17.7 % (11.6-15.6); WHITE BLOOD COUNT 2.4 K/mm3 (4.0-10.0)
[2018-06-15] MEDS ORDERED: LIDOCAINE HCL 1%, 10 MG/ML (50 mL VIAL) SQ ONE (16:46)
[2018-06-15 17:46] LABS: CREATININE 0.8 mg/dL (0.55-1.3)
[2018-06-15 17:47] LABS: ALBUMIN 2.2 g/dl (3.4-5.0)
[2018-06-15 17:48] LABS: INR 1.22 (0.83-1.09); PROTHROMBIN TIME (PATIENT) 14.4 SEC (9.7-13.0)
--- NOTE | 2018-06-15 18:04 | CONSULT ---
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), COPD, sarcoidosis and squamous cell anal cancer. She is s/ p chemotherapy and 28 cycles of RT. She will be admitted to [facility] for her final cycle of 5FU infusion (last 06/17/2018). Patient feels well, in no acute distress. Wants to finish chemotherapy and get better. She denies any cough, fevers, sore throat or rhinorrhea. She further denies any chest pain or shortness of breath. - History Source History Provided By: Patient, Medical Record Limitations to Obtaining History: No Limitations - Past Medical History Pulmonary: Yes: Other (Sarcoidosis. Pulmonary aspergilloma.) Gastrointestinal: Yes: Other (Chronic liver disease with biopsy 08/2012 showing stage 3 fibrosis (stage 4 is cirrhosis). ) Hepatobiliary: Yes: Other (Chronic liver disease. prior hep c anitiobdy positive , vl negative, hep b core positive , vl negative) Renal/: Yes: Renal Failure (remote history) ...LMP: 12/19/06 Infectious Disease: Yes: Other (HIV positive. 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 Followed by Drs. Serrano and Tangela. 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 SHE HAS A HISTORY OF SUBSTANCE ABUSE(NOT SURE IF IT WAS ALCOHOL OR OPIATES) - Past Surgical History Past Surgical History: Yes: Cholecystectomy - Alcohol/Substance Use Hx Alcohol Use: Yes (none x 10 years) - Smoking History Smoking history: Former smoker Have you smoked in the past 12 months: No Aproximately how many cigarettes per day: 5 If you are a former smoker, when did you quit?: 1999 - Social History Usual Living Arrangement: With Child ADL: Support Services History of Recent Travel: No Home Medications - Allergies Allergies/Adverse Reactions: Allergies Allergy/AdvReac Type Severity Reaction Status Date / Time piperacillin sodium Allergy Mild Itching Verified 04/18/18 10:29 [From Zosyn] tazobactam sodium Allergy Mild Itching Verified 04/18/18 10:29 [From Zosyn] vancomycin AdvReac Intermediate Difficulty Verified 04/18/18 10:29 Breathing lactose-intolerance AdvReac Unknown Uncoded 04/18/18 10:29 - Home Medications Home Medications: Ambulatory Orders Ergocalciferol (Vitamin D2) [Vitamin D2] 50,000 unit PO Q7D 30 Days #4 capsule 12/23/17 Lactulose [Cephulac -] 10 gm PO DAILY PRN 30 Days #1 bottle 03/04/18 Abacavir/Dolutegravir/Lamivudi [Triumeq Tablet] 1 each PO DAILY #30 tablet 03/17 Tiotropium [place] [Spiriva Respimat] 4 gm IH DAILY #1 mist.inhal 03/17/18 clonazePAM [Klonopin -] 0.25 mg PO BID PRN #60 tablet MDD 2 04/07/18 Abacavir/Dolutegravir/Lamivudi [Triumeq Tablet] 1 each PO DAILY 04/15/18 Fosfomycin Tromethamine [Monurol (Nf) -] 3 gm PO ONCE #1 packet 05/10/18 Oxycodone HCl/Acetaminophen [Percocet 10-325 mg Tablet] 1 each PO TID PRN #70 tablet MDD 3 05/24/18 Albuterol Sulfate Inhaler - [Ventolin HFA Inhaler -] 2 inh PO Q6H PRN 06/13/18 Family Disease History - Family Disease History Family Disease History: Heart Disease: Mother (d. [place], HTN, age 68), [place]: Father ( adrenal gland) Physical Exam Vital Signs: Vital Signs Temperature 98.3 F 06/15/18 14:48 Pulse Rate 89 06/15/18 14:48 Respiratory Rate 20 06/15/18 14:48 Blood Pressure 104/69 06/15/18 14:48 O2 Sat by Pulse Oximetry (%) 99 06/15/18 09:00 Constitutional: Yes: No Distress, Anxious, Thin Eyes: Yes: Conjunctiva Clear, EOM Intact HENT: Yes: Atraumatic, Normocephalic Neck: Yes: Supple, Trachea Midline Cardiovascular: Yes: Regular Rate and Rhythm, S1, S2 Respiratory: Yes: Regular, CTA Bilaterally Gastrointestinal: Yes: Normal Bowel Sounds, Soft, Distention (central tympanny) , Tenderness (supraumbilical in midline hernia defect 1X1cm curcular, reducible) . No: Ascites, Palpable Mass, Pulsatile Mass, Splenomegaly, Tenderness, Epigastrium, Tenderness, Rebound ...Rectal Exam: Yes: Deferred Renal/: No: CVA Tenderness - Left, CVA Tenderness - Right Musculoskeletal: No: Muscle Pain, Muscle Weakness Extremities: No: Cool, Cyanosis Edema: No Peripheral Pulses WNL: Yes Integumentary: No: Jaundice, Petechiae, Pressure Ulcer, Rash Wound/Incision: Yes: Other (healed supraumbilical incsion) Neurological: Yes: Alert, Oriented Psychiatric: Yes: Alert, Oriented Labs: CBC, BMP 06/15/18 15:30 06/15/18 15:30 Imaging - Results Cat Scan: Report Reviewed, Image Reviewed Problem List - Problems (1) Incarcerated umbilical hernia Assessment/Plan: 62yo female with MMP with a newly incarcerated symptomatic supraumbilical hernia. will attempt to temporize with a manual reduction until her chemotherapy is completed. After she recovers she can be considered for minimal invasive operative repair. symptomatic repair Local bedside reduction pressure dressing abdominal binder muscle relaxant will follow and repeat as needed Thank you for the opportunity to participate in the care of this patient. Code(s): K42.0 - UMBILICAL HERNIA WITH OBSTRUCTION, WITHOUT GANGRENE (2) Abdominal pain Code(s): R10.9 - UNSPECIFIED ABDOMINAL PAIN Qualifiers: Abdominal location: periumbilical Qualified Code(s): R10.33 - Periumbilical pain (3) Depression Code(s): F32.9 - MAJOR DEPRESSIVE DISORDER, SINGLE EPISODE, UNSPECIFIED (4) COPD (chronic obstructive pulmonary disease) Code(s): J44.9 - CHRONIC OBSTRUCTIVE PULMONARY DISEASE, UNSPECIFIED (5) HIV (human immunodeficiency virus infection) Code(s): Z21 - ASYMPTOMATIC HUMAN IMMUNODEFICIENCY VIRUS INFECTION STATUS
--- NOTE | 2018-06-15 18:35 | CON.GI ---
Consult Consult Specialty:: GI Referred by:: Dr. Beti Herndon Reason for Consultation:: Abdominal pain - History of Present Illness Chief Complaint: Abdominal pain History of Present Illness: 62F admitted for continued chemotherapy (5FU, Mitomycin) for treatment of anal cancer. Please refer to myy office H&P that is scanned into the [employer] system under the 01/14/18 colonoscopy date for full details. She noticed fullness in her mid abdomen associated with pain. I was called by Dr. Herndon regarding this. She was concerned for a symptomatic umbilical hernia. She underwernt CT scan with IV contrast this evening that revaeld wall thickening of the cecum, ascending colon and small bowel. She had complained of diarrhea that has since improved. When I arrived on the floor, she had already been evaluated by surgeon Dr. Shepherd. He explained that he reduced an umbilical hernia and put an abdominal binder in place. Currently, she denies abdominal pain. She had a colonoscopy 01/14/18 that revealed the anal cancer and retained stool in the cecum. The remainder of the colon was normal. She underwent EGD 02/23 that revealed three columns of small non-bleeding varices and portal gastropathy. - History Source History Provided By: Patient, Medical Record - Past Medical History Pulmonary: Yes: Other (Sarcoidosis. Pulmonary aspergilloma.) Gastrointestinal: Yes: Other (Chronic liver disease with biopsy 08/2012 showing stage 3 fibrosis (stage 4 is cirrhosis). ) Hepatobiliary: Yes: Other (Chronic liver disease. prior hep c anitiobdy positive , vl negative, hep b core positive , vl negative) Renal/: Yes: Renal Failure (remote history) ...LMP: 12/19/06 Infectious Disease: Yes: Other (HIV positive. 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 Followed by Drs. Serrano and Tangela. 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 SHE HAS A HISTORY OF SUBSTANCE ABUSE(NOT SURE IF IT WAS ALCOHOL OR OPIATES) - Past Surgical History Past Surgical History: Yes: Cholecystectomy - Alcohol/Substance Use Hx Alcohol Use: Yes (none x 10 years) - Smoking History Smoking history: Former smoker Have you smoked in the past 12 months: No Aproximately how many cigarettes per day: 5 If you are a former smoker, when did you quit?: 1999 - Social History Usual Living Arrangement: With Child ADL: Support Services Place of : [place] History of Recent Travel: No Home Medications - Allergies Allergies/Adverse Reactions: Allergies Allergy/AdvReac Type Severity Reaction Status Date / Time piperacillin sodium Allergy Mild Itching Verified 04/18/18 10:29 [From Zosyn] tazobactam sodium Allergy Mild Itching Verified 04/18/18 10:29 [From Zosyn] vancomycin AdvReac Intermediate Difficulty Verified 04/18/18 10:29 Breathing lactose-intolerance AdvReac Unknown Uncoded 04/18/18 10:29 - Home Medications Home Medications: Ambulatory Orders Ergocalciferol (Vitamin D2) [Vitamin D2] 50,000 unit PO Q7D 30 Days #4 capsule 12/23/17 Lactulose [Cephulac -] 10 gm PO DAILY PRN 30 Days #1 bottle 03/04/18 Abacavir/Dolutegravir/Lamivudi [Triumeq Tablet] 1 each PO DAILY #30 tablet 03/17 Tiotropium [place] [Spiriva Respimat] 4 gm IH DAILY #1 mist.inhal 03/17/18 clonazePAM [Klonopin -] 0.25 mg PO BID PRN #60 tablet MDD 2 04/07/18 Abacavir/Dolutegravir/Lamivudi [Triumeq Tablet] 1 each PO DAILY 04/15/18 Fosfomycin Tromethamine [Monurol (Nf) -] 3 gm PO ONCE #1 packet 05/10/18 Oxycodone HCl/Acetaminophen [Percocet 10-325 mg Tablet] 1 each PO TID PRN #70 tablet MDD 3 05/24/18 Albuterol Sulfate Inhaler - [Ventolin HFA Inhaler -] 2 inh PO Q6H PRN 06/13/18 Family Disease History - Family Disease History Family Disease History: Heart Disease: Mother (d. [place], HTN, age 68), [place]: Father ( adrenal gland) Other Family History: As noted in my H&P scanned into her 01/14/18 colonoscopy admission date Review of Systems - Review of Systems Constitutional: denies: Chills Cardiovascular: denies: Chest Pain Respiratory: denies: SOB Gastrointestinal: reports: Abdominal Pain (resolved). denies: Constipation, Diarrhea, Dysphagia, Melena, Rectal Bleeding, Vomiting, Vomiting Blood Physical Exam-GI Vital Signs: Vital Signs Temperature 98.3 F 06/15/18 14:48 Pulse Rate 89 06/15/18 14:48 Respiratory Rate 20 06/15/18 14:48 Blood Pressure 104/69 06/15/18 14:48 O2 Sat by Pulse Oximetry (%) 99 06/15/18 09:00 Constitutional: Yes: Calm Eyes: No: Sclera Icterus Cardiovascular: Yes: Regular Rate and Rhythm. No: Murmur Respiratory: Yes: CTA Bilaterally Gastrointestinal Inspection: Yes: Other (abdominal binder in place. Left in place given current clinical picture) ...Auscultate: Yes: Normoactive Bowel Sounds ...Palpate: No: Tenderness (Non tender to palpation in the left and right abdomen) ...Percussion: No: Tympanitic Edema: No (No LE edema) Neurological: Yes: Alert, Oriented Labs: CBC, BMP 06/15/18 15:30 06/15/18 15:30 INR, PTT INR 1.22 (0.83-1.09) H 06/15/18 15:30 Imaging - Results Cat Scan: Report Reviewed, Image Reviewed Problem List - Problems (1) Umbilical hernia Assessment/Plan: Apparently reduced by surgery. They plan on elective surgery after completion of chemotherapy Code(s): K42.9 - UMBILICAL HERNIA WITHOUT OBSTRUCTION OR GANGRENE (2) Abnormal CT of the abdomen Assessment/Plan: No abdominal tenderness appreciated on examingation of the right colon. Given lack of focal abdominal findings, suspect that this reflects lack of PO contrast , hypoalbuminemic state. Infectious etiology given complaints of diarrhea would need to be considered as well. Clinically typhilitis lower in differential Ordered stool for C. Diff, culture, O&P if diarrhea resumes and continue to monitor Code(s): R93.5 - ABN FINDINGS ON DX IMAGING OF ABD REGIONS, INC RETROPERITON
[2018-06-15 18:39] LABS: ALK PHOS 108 U/L (45-117); ANION GAP 8 MMOL/L (8-16); BILIRUBIN,TOTAL 0.5 mg/dL (0.2-1); BLOOD UREA NITROGEN 10 mg/dL (7-18); CALCIUM 7.4 mg/dL (8.5-10.1); CHLORIDE 111 mmol/L (98-107); CO2 24 mmol/L (21-32); GLUCOSE,RANDOM 85 mg/dL (74-106); POTASSIUM 3.8 mmol/L (3.5-5.1); SGOT/AST 29 U/L (15-37); SGPT/ALT 17 U/L (13-61); SODIUM 143 mmol/L (136-145); TOT PROT 6.6 g/dl (6.4-8.2)
[2018-06-15] MEDS: MINERAL OIL/PET HY-PHL TOPICAL OINTMENT 454 GM JAR TP SCH (22:16)
[2018-06-15] MEDS: CYCLOBENZAPRINE HCL 10 MG TABLET (FP) PO SCH (22:17)
[2018-06-16] MEDS: CYCLOBENZAPRINE HCL 10 MG TABLET (FP) PO SCH ×3 (05:41→22:21)
[2018-06-16] MEDS: PORTA CATH FLUSH 10 ML IVPUSH PRN (05:51)
[2018-06-16 07:33] LABS: BASO % 0.6 % (0-2.0); EOS % 3.2 % (0-4.5); HEMOGLOBIN 10.3 GM/dL (10.7-15.3); LYMPH % 23.4 % (8-40); MCH 34.1 pg (25.7-33.7); MCHC 33.2 g/dl (32.0-36.0); MEAN CELL VOLUME 102.7 fl (80-96); MEAN PLT VOLUME 8.9 fl (7.5-11.1); MONO % 12.7 % (3.8-10.2); NEUT % 60.1 % (42.8-82.8); PLATELET COUNT 89 K/MM3 (134-434); RBC 3.02 M/mm3 (3.60-5.2); RDW 17.4 % (11.6-15.6); WHITE BLOOD COUNT 2.7 K/mm3 (4.0-10.0)
[2018-06-16 07:46] LABS: ALBUMIN 2.1 g/dl (3.4-5.0); ALK PHOS 103 U/L (45-117); ANION GAP 6 MMOL/L (8-16); BILIRUBIN,TOTAL 0.8 mg/dL (0.2-1); BLOOD UREA NITROGEN 7 mg/dL (7-18); CALCIUM 7.5 mg/dL (8.5-10.1); CHLORIDE 109 mmol/L (98-107); CO2 26 mmol/L (21-32); CREATININE 0.8 mg/dL (0.55-1.3); GLUCOSE,RANDOM 79 mg/dL (74-106); POTASSIUM 3.7 mmol/L (3.5-5.1); SGOT/AST 28 U/L (15-37); SGPT/ALT 17 U/L (13-61); SODIUM 142 mmol/L (136-145); TOT PROT 6.3 g/dl (6.4-8.2)
[2018-06-16] MEDS ORDERED: PT OWN MED DRAWER 7, Y5N ONE ×2 (11:11→12:54)
[2018-06-16] MEDS: MULTIVITAMINS (DAILY MVI) TABLET (FP) PO SCH (11:14)
[2018-06-16] MEDS: valACYclovir HCL 500 MG TABLET (FP) PO SCH (11:15)
[2018-06-16] MEDS: SODIUM CHLORIDE 1,000 ML IV SCH ×2 (11:17→22:32)
--- NOTE | 2018-06-16 12:28 | PN ---
Physical Exam: SUBJECTIVE: Patient seen and examined, she reports her abdominal pain is much improved since yesterday. Patient seen and examined. C/o gas and abdominal pain and bloating. Yesterday, she was having severe abdominal pain and bloating , there was concern for symptomatic umbilical hernia. She underwent CT scan with IV contrast that showed wall thickening of the cecum, ascending colon and small bowel. She was seen by surgery and GI. Plan is to wear abdominal binder until after she recovers from chemo, then will consider for minimal invasive operative repair. BP still low. Tolerating the chemo thus far. No evident toxicity at this juncture but will continue to monitor. Today is day 4/ for her SCC Anal cancer on 5-FU and Mitomycin. OBJECTIVE: Vital Signs Period Temp Pulse Resp BP Sys/Wade Pulse Ox Last 24 Hr 98.3 F-99.7 F 87-107 17-20 98-104/56-74 97 GENERAL: The patient is awake, alert, and fully oriented, in no acute distress. HEAD: Normal with no signs of trauma. EYES: PERRL, extraocular movements intact, sclera anicteric, conjunctiva clear. No ptosis. ENT: Ears normal, nares patent, oropharynx clear without exudates, moist mucous membranes. NECK: Trachea midline, full range of motion, supple. LUNGS: Expiratory wheeze, no crackles, no accessory muscle use. HEART: Regular rate and rhythm, S1, S2 without murmur, rub or gallop. ABDOMEN: Distended, non-tender protrusion at umbilicus, normoactive bowel sounds EXTREMITIES: 2+ pulses, warm, well-perfused, no edema. NEUROLOGICAL: No facial droop, normal speech, slow, steady gate PSYCH: Normal mood, normal affect. SKIN: Warm, dry, no rashes or lesions noted Laboratory Results - last 24 hr 06/15/18 06/15/18 06/15/18 15:30 15:30 15:30 WBC 2.4 L RBC 3.20 L Hgb 11.2 Hct 32.9 MCV 103.1 H MCH 35.2 H MCHC 34.1 RDW 17.7 H Plt Count 101 L MPV 8.5 Absolute Neuts (auto) 1.6 Neutrophils % 67.8 Lymphocytes % 17.6 Monocytes % 10.9 H Eosinophils % 3.4 Basophils % 0.3 Nucleated RBC % 0 PT with INR 14.40 H INR 1.22 H Sodium 143 Potassium 3.8 Chloride 111 H Carbon Dioxide 24 Anion Gap 8 BUN 10 Creatinine 0.8 Creat Clearance w eGFR > 60 Random Glucose 85 Lactic Acid Calcium 7.4 L Total Bilirubin 0.5 AST 29 ALT 17 Alkaline Phosphatase 108 Total Protein 6.6 Albumin 2.2 L 06/15/18 06/16/18 06/16/18 15:30 06:00 06:00 WBC 2.7 L RBC 3.02 L Hgb 10.3 L Hct 31.0 L MCV 102.7 H MCH 34.1 H MCHC 33.2 RDW 17.4 H Plt Count 89 L MPV 8.9 Absolute Neuts (auto) 1.6 Neutrophils % 60.1 Lymphocytes % 23.4 D Monocytes % 12.7 H Eosinophils % 3.2 Basophils % 0.6 Nucleated RBC % 0 PT with INR INR Sodium 142 Potassium 3.7 Chloride 109 H Carbon Dioxide 26 Anion Gap 6 L BUN 7 Creatinine 0.8 Creat Clearance w eGFR > 60 Random Glucose 79 Lactic Acid 1.4 Calcium 7.5 L Total Bilirubin 0.8 AST 28 ALT 17 Alkaline Phosphatase 103 Total Protein 6.3 L Albumin 2.1 L Active Medications Generic Name Dose Route Start Last Admin Trade Name Freq PRN Reason Stop Dose Admin Acetaminophen 325 mg 06/13/18 17:05 06/15/18 15:27 Tylenol - PO 325 mg Q8H PRN Administration PAIN LEVEL 6-10 Albuterol/Ipratropium 1 amp 06/13/18 18:27 Duoneb - NEB Q6H PRN SHORTNESS OF BREATH Clonazepam 0.25 mg 06/13/18 16:53 Klonopin - PO BID PRN ANXIETY Cyclobenzaprine HCl 5 mg 06/15/18 22:00 06/16/18 05:41 Flexeril - PO 5 mg TID TERRENCE Administration Emollient Ointment 1 applic 06/15/18 22:00 06/15/18 22:16 Aquaphor - TP 1 applic BID TERRENCE Administration IV Flush 10 ml 06/15/18 11:04 06/16/18 05:51 Luisa-Cath Flush IVPUSH 10 ml PRN PRN Administration FLUSH IV Flush 10 ml 06/16/18 00:22 Luisa-Cath Flush IVPUSH PRN PRN protocol, maintain patency Sodium Chloride 1,000 mls @ 75 mls/hr 06/15/18 15:15 06/16/18 11:17 Normal Saline - IV 75 mls/hr ASDIR TERRENCE Administration Fluorouracil 950 mg/ Sodium 519 mls @ 21.625 mls/hr 06/15/18 19:15 06/15/18 19:15 Chloride IV 06/16/18 19:14 21.625 mls/hr ONCE ONE Administration Multivitamins/Minerals/Vitamin C 1 tab 06/14/18 10:00 06/16/18 11:14 Tab-A-Vit - PO 1 tab DAILY TERRENCE Administration Non-Formulary Medication 1 each 06/14/18 16:00 06/16/18 11:14 Abacavir/Dolutegravir/Lamivudi [Triumeq Tablet] PO 1 each DAILY TERRENCE Administration Ondansetron HCl 8 mg 06/13/18 14:52 06/15/18 15:00 Zofran Injection IVPB 8 mg Q6H PRN Administration NAUSEA AND/OR VOMITING Oxycodone HCl 10 mg 06/13/18 17:05 06/15/18 06:38 Roxicodone - PO 10 mg Q8H PRN Administration PAIN LEVEL 6-10 Simethicone 80 mg 06/15/18 11:06 06/15/18 13:28 Mylicon - PO 80 mg Q4H PRN Administration GAS Tiotropium [place] 2 puff 06/16/18 10:15 Spiriva Respimat IH DAILY TERRENCE Valacyclovir HCl 500 mg 06/14/18 16:15 06/16/18 11:15 Valtrex - PO 500 mg DAILY TERRENCE Administration ASSESSMENT/PLAN: 62 year-old female on the medicine service for chemotherapy as she has too many comorbidities to manage as an outpatient. She is day 4/5 5-FU and mitomycin. Squamous cell anal cancer -Colonoscopy 01/14/18 that revealed the anal cancer and retained stool in the cecum -Day 4/5 5-FU via right subclavian mediport -Tolerating chemo -Oxycodone 10 mg for pain -Encourage PO intake -Monitor daily labs -Followed by oncologist Dr. Serrano Newly incarcerated symptomatic supraumbilical hernia -CT scan with IV contrast that showed wall thickening of the cecum, ascending colon and small bowel. -Pain improved today -Seen by surgery and GI. -Abdominal binder for hernia reduction -Will consider minimally invasive operative repair once she recovers from chemo. Hypertension -Remains hypotensive, 98-104/56-74 -On IV fluids -Encourage PO fluids as well -Cardiac consult ordered -Continue to monitor BP COPD -Stable, on room air -Re-start Spiriva -Duonebs PRN HIV -Re-started on [place] Triumeq -Valtrex 500 mg daily -Contact isolation d/t ESBL ecoli UTI -Followed by Dr. Yanick Blank -Klonopin 0.25 mg BID FEN -NS @ 100 cc/hr -Replete electrolytes as needed -Regular diet and Ensure TID Prophylaxis GI: Protonix DVT SCDs and PT -No chemical prophylaxs d/t decreased platelets. FULL CODE Visit type - Emergency Visit Emergency Visit: No - New Patient This patient is new to me today: No - Critical Care Critical Care patient: No
[2018-06-16] MEDS: TIOTROPIUM BROMIDE 2.5 MCG (SPIRIVA) RESPIMAT INHALER IH SCH (13:21)
[2018-06-16] MEDS: MINERAL OIL/PET HY-PHL TOPICAL OINTMENT 454 GM JAR TP SCH ×2 (13:22→22:24)
[2018-06-16] MEDS ORDERED: SODIUM CHLORIDE IV ONE ×2 (14:00→15:00)
[2018-06-16] MEDS ORDERED: FLUOROURACIL IV ONE ×2 (14:00→15:00)
[2018-06-16] MEDS: ONDANSETRON 4 MG/2 ML VIAL IVPB PRN (14:53)
--- NOTE | 2018-06-16 15:34 | PN ---
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 She is s/ p chemotherapy and 28 cycles of RT. She will be admitted to [facility] for her final cycle of 5FU infusion (last 06/17/2018). Patient feels well, in no acute distress. Wants to finish chemotherapy and get better. She denies any cough, fevers, sore throat or rhinorrhea. She further denies any chest pain or shortness of breath. - Current Medication List Current Medications: Active Medications Acetaminophen (Tylenol -) 325 mg PO Q8H PRN PRN Reason: PAIN LEVEL 6-10 Last Admin: 06/15/18 15:27 Dose: 325 mg Albuterol/Ipratropium (Duoneb -) 1 amp NEB Q6H PRN PRN Reason: SHORTNESS OF BREATH Clonazepam (Klonopin -) 0.25 mg PO BID PRN PRN Reason: ANXIETY Cyclobenzaprine HCl (Flexeril -) 5 mg PO TID [facility] Last Admin: 06/16/18 13:20 Dose: 5 mg Emollient Ointment (Aquaphor -) 1 applic TP BID [facility] Last Admin: 06/16/18 13:22 Dose: 1 applic IV Flush (Luisa-Cath Flush) 10 ml IVPUSH PRN PRN PRN Reason: FLUSH Last Admin: 06/16/18 05:51 Dose: 10 ml IV Flush (Luisa-Cath Flush) 10 ml IVPUSH PRN PRN PRN Reason: protocol, maintain patency Sodium Chloride (Normal Saline -) 1,000 mls @ 75 mls/hr IV ASDIR [facility] Last Admin: 06/16/18 11:17 Dose: 75 mls/hr Fluorouracil 950 mg/ Sodium (Chloride) 519 mls @ 21.625 mls/hr IV ONCE ONE Stop: 06/16/18 19:14 Last Admin: 06/15/18 19:15 Dose: 21.625 mls/hr Fluorouracil 950 mg/ Sodium (Chloride) 519 mls @ 21.625 mls/hr IV ONCE ONE Stop: 06/17/18 14:59 Multivitamins/Minerals/Vitamin C (Tab-A-Vit -) 1 tab PO DAILY [facility] Last Admin: 06/16/18 11:14 Dose: 1 tab Non-Formulary Medication (Abacavir/Dolutegravir/Lamivudi [Triumeq Tablet]) 1 each PO DAILY [facility] Last Admin: 06/16/18 11:14 Dose: 1 each Ondansetron HCl (Zofran Injection) 8 mg IVPB Q6H PRN PRN Reason: NAUSEA AND/OR VOMITING Last Admin: 06/16/18 14:53 Dose: 8 mg Oxycodone HCl (Roxicodone -) 10 mg PO Q8H PRN PRN Reason: PAIN LEVEL 6-10 Last Admin: 06/15/18 06:38 Dose: 10 mg Simethicone (Mylicon -) 80 mg PO Q4H PRN PRN Reason: GAS Last Admin: 06/15/18 13:28 Dose: 80 mg Tiotropium [place] (Spiriva Respimat) 2 puff IH DAILY [facility] Last Admin: 06/16/18 13:21 Dose: 2 puff Valacyclovir HCl (Valtrex -) 500 mg PO DAILY [facility] Last Admin: 06/16/18 11:15 Dose: 500 mg - Objective Vital Signs: Vital Signs Temperature 98.7 F 06/16/18 10:00 Pulse Rate 92 H 06/16/18 10:00 Respiratory Rate 17 06/16/18 10:00 Blood Pressure 98/56 L 06/16/18 10:00 O2 Sat by Pulse Oximetry (%) 97 06/16/18 09:00 Vital Signs Period Temp Pulse Resp BP Sys/Wade Pulse Ox Last 24 Hr 98.5 F-99.7 F 87-107 17-18 98-104/56-74 97-97 Constitutional: Yes: Well Nourished, No Distress, Calm Eyes: Yes: Conjunctiva Clear, EOM Intact HENT: Yes: Atraumatic, Normocephalic Neck: Yes: Supple, Trachea Midline Cardiovascular: Yes: Regular Rate and Rhythm, S1, S2 Respiratory: Yes: Regular, CTA Bilaterally Gastrointestinal: Yes: Normal Bowel Sounds, Soft, Hernia (supraumbilical), Tenderness, Tenderness, Rebound. No: Distention, Tenderness, Epigastrium ...Rectal Exam: Yes: Deferred Genitourinary: No: CVA Tenderness - Left, CVA Tenderness - Right Extremities: No: Cool, Cyanosis Edema: No Peripheral Pulses WNL: Yes Peripheral Pulses: Left Radial: 2+, Right Radial: 2+, Left Doralis Pedis: 2+, Right Dorsalis Pedis: 2+ Integumentary: No: Jaundice, Rash Neurological: Yes: Alert, Oriented Psychiatric: Yes: Alert, Oriented Labs: CBC, BMP 06/16/18 06:00 06/16/18 06:00 INR, PTT INR 1.22 (0.83-1.09) H 06/15/18 15:30 Problem List - Problems (1) Incarcerated umbilical hernia Assessment/Plan: 62yo female with MMP with a newly incarcerated symptomatic supraumbilical hernia. will attempt to temporize with a manual reduction until her chemotherapy is completed. After she recovers she can be considered for minimal invasive operative repair. symptomatic repair Local bedside reduction pressure dressing abdominal binder muscle relaxant will follow and repeat as needed Thank you for the opportunity to participate in the care of this patient. Code(s): K42.0 - UMBILICAL HERNIA WITH OBSTRUCTION, WITHOUT GANGRENE (2) Abdominal pain Code(s): R10.9 - UNSPECIFIED ABDOMINAL PAIN Qualifiers: Abdominal location: periumbilical Qualified Code(s): R10.33 - Periumbilical pain (3) Depression Code(s): F32.9 - MAJOR DEPRESSIVE DISORDER, SINGLE EPISODE, UNSPECIFIED (4) COPD (chronic obstructive pulmonary disease) Code(s): J44.9 - CHRONIC OBSTRUCTIVE PULMONARY DISEASE, UNSPECIFIED (5) HIV (human immunodeficiency virus infection) Code(s): Z21 - ASYMPTOMATIC HUMAN IMMUNODEFICIENCY VIRUS INFECTION STATUS
--- NOTE | 2018-06-16 15:55 | CON.CARD ---
Consult Consult Specialty:: Cardiology Referred by:: Zach Reason for Consultation:: hypotension - History of Present Illness Chief Complaint: hypotension History of Present Illness: 63F h/o HIV, COPD, sarcoidosis and squamous cell anal cancer s/p chmotherapy admitted for 5FU infusion. Has been receiving chemo, noted to have low BPs. Per patient this has been an issue for several years. Occasionally gets dizzy. BP improved here with IV fluids. No chest pain, palps, edema, orthopnea, PND - Past Medical History Pulmonary: Yes: Other (Sarcoidosis. Pulmonary aspergilloma.) Gastrointestinal: Yes: Other (Chronic liver disease with biopsy 08/2012 showing stage 3 fibrosis (stage 4 is cirrhosis). ) Hepatobiliary: Yes: Other (Chronic liver disease. prior hep c anitiobdy positive , vl negative, hep b core positive , vl negative) Renal/: Yes: Renal Failure (remote history) ...LMP: 12/19/06 Infectious Disease: Yes: Other (HIV positive. 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 Followed by Drs. Serrano and Tangela. 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 SHE HAS A HISTORY OF SUBSTANCE ABUSE(NOT SURE IF IT WAS ALCOHOL OR OPIATES) - Past Surgical History Past Surgical History: Yes: Cholecystectomy - Alcohol/Substance Use Hx Alcohol Use: Yes (none x 10 years) - Smoking History Smoking history: Former smoker Have you smoked in the past 12 months: No Aproximately how many cigarettes per day: 5 If you are a former smoker, when did you quit?: 1999 - Social History Usual Living Arrangement: With Child ADL: Support Services History of Recent Travel: No Home Medications - Allergies Allergies/Adverse Reactions: Allergies Allergy/AdvReac Type Severity Reaction Status Date / Time piperacillin sodium Allergy Mild Itching Verified 04/18/18 10:29 [From Zosyn] tazobactam sodium Allergy Mild Itching Verified 04/18/18 10:29 [From Zosyn] vancomycin AdvReac Intermediate Difficulty Verified 04/18/18 10:29 Breathing lactose-intolerance AdvReac Unknown Uncoded 04/18/18 10:29 - Home Medications Home Medications: Ambulatory Orders Ergocalciferol (Vitamin D2) [Vitamin D2] 50,000 unit PO Q7D 30 Days #4 capsule 12/23/17 Lactulose [Cephulac -] 10 gm PO DAILY PRN 30 Days #1 bottle 03/04/18 Abacavir/Dolutegravir/Lamivudi [Triumeq Tablet] 1 each PO DAILY #30 tablet 03/17 Tiotropium [place] [Spiriva Respimat] 4 gm IH DAILY #1 mist.inhal 03/17/18 clonazePAM [Klonopin -] 0.25 mg PO BID PRN #60 tablet MDD 2 04/07/18 Abacavir/Dolutegravir/Lamivudi [Triumeq Tablet] 1 each PO DAILY 04/15/18 Fosfomycin Tromethamine [Monurol (Nf) -] 3 gm PO ONCE #1 packet 05/10/18 Oxycodone HCl/Acetaminophen [Percocet 10-325 mg Tablet] 1 each PO TID PRN #70 tablet MDD 3 05/24/18 Albuterol Sulfate Inhaler - [Ventolin HFA Inhaler -] 2 inh PO Q6H PRN 06/13/18 Family Disease History - Family Disease History Family Disease History: Heart Disease: Mother (d. [place], HTN, age 68), [place]: Father ( adrenal gland) Other Family History: As noted in my H&P scanned into her 01/14/18 colonoscopy admission date Review of Systems - Review of Systems Constitutional: reports: No Symptoms Eyes: reports: No Symptoms HENT: reports: No Symptoms Neck: reports: No Symptoms Cardiovascular: reports: No Symptoms Respiratory: reports: No Symptoms Gastrointestinal: reports: No Symptoms Genitourinary: reports: No Symptoms Musculoskeletal: reports: No Symptoms Integumentary: reports: No Symptoms Neurological: reports: No Symptoms Endocrine: reports: No Symptoms Hematology/Lymphatic: reports: No Symptoms Psychiatric: reports: No Symptoms Vital Signs: Vital Signs Temperature 98.7 F 06/16/18 10:00 Pulse Rate 92 H 06/16/18 10:00 Respiratory Rate 17 06/16/18 10:00 Blood Pressure 98/56 L 06/16/18 10:00 O2 Sat by Pulse Oximetry (%) 97 06/16/18 09:00 Constitutional: Yes: No Distress, Calm Eyes: Yes: Conjunctiva Clear, EOM Intact HENT: Yes: Atraumatic, Normocephalic Neck: Yes: Supple, Trachea Midline Respiratory: Yes: Regular, CTA Bilaterally Gastrointestinal: Yes: Normal Bowel Sounds, Soft Cardiovascular: Yes: Regular Rate and Rhythm JVD: No Carotid Bruit: No PMI: Non-Displaced Heart Sounds: Yes: S1, S2 Musculoskeletal: No: Back Pain Extremities: No: Cold, Cyanosis Edema: No Peripheral Pulses WNL: Yes Peripheral Pulses: 2+ Left Doralis Pedis, 2+ Right Dorsalis Pedis Integumentary: No: Jaundice Neurological: Yes: Alert, Oriented Psychiatric: Yes: Alert, Oriented - Other Data Labs, Other Data: CBC, BMP 06/16/18 06:00 06/16/18 06:00 INR, PTT INR 1.22 (0.83-1.09) H 06/15/18 15:30 Assessment/Plan Hypotension - rare cardiotoxicity from 5FU, will check echocardiogram - likely related to dehydration, continue IV fluids - may be related to sedating meds as well (flexeril, narcotics, benzos) - encourage PO hydration, salt intake squamous cell anal cancer - chemo and pain control per primary team, onc incarcerated hernia - GI and surgery following COPD - stable, manage per primary HIV - on HAART, ID following
--- NOTE | 2018-06-16 16:12 | PN ---
GI Progress Note Subjective: No acute events periumbilical pain improved from yesterday No diarrhea - Objective Vital Signs: Vital Signs Temperature 98.7 F 06/16/18 10:00 Pulse Rate 92 H 06/16/18 10:00 Respiratory Rate 17 06/16/18 10:00 Blood Pressure 98/56 L 06/16/18 10:00 O2 Sat by Pulse Oximetry (%) 97 06/16/18 09:00 Constitutional: Calm Eyes: No: Sclera Icterus Cardiovascular: Yes: Regular Rate and Rhythm Respiratory: Yes: CTA Bilaterally Gastrointestinal Inspection: Yes: Distention (protuberant abdomen) ...Auscultate: Yes: Normoactive Bowel Sounds ...Palpate: Yes: Tenderness (tenderness to palpation at the umbilicus with protuberance (dressing not removed as this was placed by surgery after hernia was reduced yesterday)) ...Percussion: No: Tympanitic Edema: No (No LE edema) Neurological: Yes: Alert Labs: CBC, BMP 06/16/18 06:00 06/16/18 06:00 INR, PTT INR 1.22 (0.83-1.09) H 06/15/18 15:30 Problem List - Problems (1) Umbilical hernia Assessment/Plan: S/P bedside reduction of fat filled umbilical hernia: Being followed by surgery. Attempting conservative measures at this time as Ms. Wei is currently receiving chemotherapy. Abdominal binder in place Code(s): K42.9 - UMBILICAL HERNIA WITHOUT OBSTRUCTION OR GANGRENE (2) Abnormal CT of the abdomen Assessment/Plan: Colitis noted oin CT scan vs. portal colopathy / relfection of hypoalbuminemic state. Currently asymptomatic Stool for C. Diff is diarrhea persists Code(s): R93.5 - ABN FINDINGS ON DX IMAGING OF ABD REGIONS, INC RETROPERITON
--- NOTE | 2018-06-16 16:13 | PN ---
Progress Note (short form) - Note Progress Note: less pain now with binder more comfortable Vital Signs Period Temp Pulse Resp BP Sys/Wade Pulse Ox Last 24 Hr 98.5 F-99.7 F 87-107 17-18 98-104/56-74 97-97 cor-rrr lungs clear abd soft, still with periumbilical pain, +BS ext no edema CBC, BMP 06/16/18 06:00 06/16/18 06:00 a/p abdominal pain- umbilical hernia- reduced at bedside, f/u surgery reports less pain continue with binder anal cancer on chemo per oncology HIV- continue art, continue valtrex contact isolation- history esbl ecoli UTI Problem List - Problems (1) Anal cancer Code(s): C21.0 - MALIGNANT NEOPLASM OF ANUS, UNSPECIFIED (2) HIV (human immunodeficiency virus infection) Code(s): Z21 - ASYMPTOMATIC HUMAN IMMUNODEFICIENCY VIRUS INFECTION STATUS
--- NOTE | 2018-06-16 23:47 | PN ---
Progress Note (short form) - Note Progress Note: Patient seen and examined D4 chemotherapy Has diarrhea No abdominal pain/vomiting Last Vital Signs Temp Pulse Resp BP Pulse Ox 97.5 F L 70 19 95/60 06/13/18 20:10 06/13/18 20:10 06/13/18 20:10 06/13/18 20:10 Cor: RSR, No murmurs, No gallops Lungs: Clear to P&A Abd: abdominal binder present Ext:No significant edema Abnormal Lab Results 06/13/18 06/13/18 09:25 09:25 WBC 3.8 L RBC 3.59 L MCV 102.3 H MCH 35.5 H RDW 17.9 H Plt Count 133 L D Monocytes % 11.4 H Chloride 109 H Calcium 7.8 L Direct Bilirubin 0.4 H Alkaline Phosphatase 133 H Albumin 2.5 L Active Medications Generic Name Dose Route Start Last Admin Trade Name Freq PRN Reason Stop Dose Admin Acetaminophen 325 mg 06/13/18 17:05 06/13/18 17:34 Tylenol - PO 325 mg Q8H PRN Administration PAIN LEVEL 6-10 Albuterol/Ipratropium 1 amp 06/13/18 18:27 Duoneb - NEB Q6H PRN SHORTNESS OF BREATH Clonazepam 0.25 mg 06/13/18 16:53 Klonopin - PO BID PRN ANXIETY Fluorouracil 950 mg/ Sodium 519 mls @ 21.625 mls/hr 06/13/18 12:00 06/13/18 14:24 Chloride IV 06/14/18 11:59 21.625 mls/hr ONCE ONE Administration Fluorouracil 950 mg/ Sodium 519 mls @ 21.625 mls/hr 06/14/18 14:00 Chloride IV 06/15/18 13:59 ONCE@1400 ONE Non-Formulary Medication 1 each 06/14/18 10:00 Abacavir/Dolutegravir/Lamivudi [Triumeq Tablet] PO DAILY TERRENCE Ondansetron HCl 8 mg 06/13/18 14:52 Zofran Injection IVPB Q6H PRN NAUSEA AND/OR VOMITING Oxycodone HCl 10 mg 06/13/18 17:05 06/13/18 17:30 Roxicodone - PO 10 mg Q8H PRN Administration PAIN LEVEL 6-10 A/P Anal Cancer HIV Hepatitis B Hepatitis C COPD Sarcoidosis of Lung HCC Liver Cirrhosis 5- FU/Mitomycin D4 Diarrhea -- ? chemotherapy induced stool for C. diff pending--if negative will add immodium iv fluids abdominal hernia --has a binder
[2018-06-17] MEDS: PORTA CATH FLUSH 10 ML IVPUSH PRN (06:00)
[2018-06-17] MEDS: CYCLOBENZAPRINE HCL 10 MG TABLET (FP) PO SCH ×3 (06:18→22:09)
[2018-06-17 07:36] LABS: HEMATOCRIT 30.7 % (32.4-45.2); HEMOGLOBIN 10.3 GM/dL (10.7-15.3); MCH 34.3 pg (25.7-33.7); MCHC 33.4 g/dl (32.0-36.0); MEAN CELL VOLUME 102.6 fl (80-96); MEAN PLT VOLUME 8.8 fl (7.5-11.1); PLATELET COUNT 78 K/MM3 (134-434); RBC 2.99 M/mm3 (3.60-5.2); RDW 17.5 % (11.6-15.6); WHITE BLOOD COUNT 2.3 K/mm3 (4.0-10.0)
[2018-06-17 08:20] LABS: ANION GAP 7 MMOL/L (8-16); BLOOD UREA NITROGEN 8 mg/dL (7-18); CALCIUM 7.4 mg/dL (8.5-10.1); CHLORIDE 111 mmol/L (98-107); CO2 24 mmol/L (21-32); CREATININE 0.7 mg/dL (0.55-1.3); GLUCOSE,RANDOM 78 mg/dL (74-106); POTASSIUM 3.6 mmol/L (3.5-5.1); SODIUM 142 mmol/L (136-145)
[2018-06-17] MEDS: TIOTROPIUM BROMIDE 2.5 MCG (SPIRIVA) RESPIMAT INHALER IH SCH (09:49)
[2018-06-17] MEDS: valACYclovir HCL 500 MG TABLET (FP) PO SCH (09:49)
[2018-06-17] MEDS: MULTIVITAMINS (DAILY MVI) TABLET (FP) PO SCH (09:49)
[2018-06-17] MEDS: MINERAL OIL/PET HY-PHL TOPICAL OINTMENT 454 GM JAR TP SCH ×2 (09:51→22:10)
[2018-06-17] MEDS ORDERED: SODIUM CHLORIDE 1,000 ML IV STA (12:37)
--- NOTE | 2018-06-17 12:39 | PN ---
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 She is tolerating it well except for diarrhea. She reports having an episode yesterday for which she was given Immodium. Her abdominal pain has improved but she finds her abdominal binder uncomfortable and has removed it. BP still low. OBJECTIVE: Vital Signs Period Temp Pulse Resp BP Sys/Wade Pulse Ox Last 24 Hr 98.0 F-99.1 F 88-95 17-18 94-108/54-72 97-97 GENERAL: The patient is awake, alert, and fully oriented, in no acute distress. HEAD: Normal with no signs of trauma. EYES: PERRL, extraocular movements intact, sclera anicteric, conjunctiva clear. No ptosis. ENT: Ears normal, nares patent, oropharynx clear without exudates, moist mucous membranes. NECK: Trachea midline, full range of motion, supple. LUNGS: Expiratory wheeze, no crackles, no accessory muscle use. HEART: Regular rate and rhythm, S1, S2 without murmur, rub or gallop. ABDOMEN: Distended, non-tender protrusion at umbilicus, normoactive bowel sounds EXTREMITIES: 2+ pulses, warm, well-perfused, no edema. NEUROLOGICAL: No facial droop, normal speech, slow, steady gate PSYCH: Normal mood, normal affect. SKIN: Warm, dry, no rashes or lesions noted Laboratory Results - last 24 hr 06/17/18 06/17/18 06:00 06:00 WBC 2.3 L RBC 2.99 L Hgb 10.3 L Hct 30.7 L MCV 102.6 H MCH 34.3 H MCHC 33.4 RDW 17.5 H Plt Count 78 L MPV 8.8 Sodium 142 Potassium 3.6 Chloride 111 H Carbon Dioxide 24 Anion Gap 7 L BUN 8 Creatinine 0.7 Creat Clearance w eGFR > 60 Random Glucose 78 Calcium 7.4 L Active Medications Generic Name Dose Route Start Last Admin Trade Name Freq PRN Reason Stop Dose Admin Acetaminophen 325 mg 06/13/18 17:05 06/15/18 15:27 Tylenol - PO 325 mg Q8H PRN Administration PAIN LEVEL 6-10 Albuterol/Ipratropium 1 amp 06/13/18 18:27 Duoneb - NEB Q6H PRN SHORTNESS OF BREATH Clonazepam 0.25 mg 06/13/18 16:53 Klonopin - PO BID PRN ANXIETY Cyclobenzaprine HCl 5 mg 06/15/18 22:00 06/17/18 06:18 Flexeril - PO Not Given TID TERRENCE Emollient Ointment 1 applic 06/15/18 22:00 06/17/18 09:51 Aquaphor - TP 1 applic BID TERRENCE Administration IV Flush 10 ml 06/15/18 11:04 06/17/18 06:00 Luisa-Cath Flush IVPUSH 10 ml PRN PRN Administration FLUSH IV Flush 10 ml 06/16/18 00:22 Luisa-Cath Flush IVPUSH PRN PRN protocol, maintain patency Sodium Chloride 1,000 mls @ 75 mls/hr 06/15/18 15:15 06/16/18 22:32 Normal Saline - IV Not Given ASDIR TERRENCE Fluorouracil 950 mg/ Sodium 519 mls @ 21.625 mls/hr 06/16/18 15:00 06/16/18 18:12 Chloride IV 06/17/18 14:59 21.625 mls/hr ONCE ONE Administration Multivitamins/Minerals/Vitamin C 1 tab 06/14/18 10:00 06/17/18 09:49 Tab-A-Vit - PO 1 tab DAILY TERRENCE Administration Non-Formulary Medication 1 each 06/14/18 16:00 06/17/18 09:49 Abacavir/Dolutegravir/Lamivudi [Triumeq Tablet] PO 1 each DAILY TERRENCE Administration Ondansetron HCl 8 mg 06/13/18 14:52 06/16/18 14:53 Zofran Injection IVPB 8 mg Q6H PRN Administration NAUSEA AND/OR VOMITING Oxycodone HCl 10 mg 06/13/18 17:05 06/15/18 06:38 Roxicodone - PO 10 mg Q8H PRN Administration PAIN LEVEL 6-10 Simethicone 80 mg 06/15/18 11:06 06/15/18 13:28 Mylicon - PO 80 mg Q4H PRN Administration GAS Tiotropium [place] 2 puff 06/16/18 10:15 06/17/18 09:49 Spiriva Respimat IH 2 puff DAILY TERRENCE Administration Valacyclovir HCl 500 mg 06/14/18 16:15 11/09/18 09:49 Valtrex - PO 500 mg DAILY TERRENCE Administration ASSESSMENT/PLAN: 62 year-old female on the medicine service for chemotherapy as she has too many comorbidities to manage as an outpatient. She is day 4/5 5-FU and mitomycin. Squamous cell anal cancer -Colonoscopy 01/14/18 that revealed the anal cancer and retained stool in the cecum -Day 4/5 5-FU via right subclavian mediport -WBCs trending downwards; 3.8 -> 2.3 today. -Tolerating chemo; no evident toxicity at this juncture but will continue to monitor. -Oxycodone 10 mg for pain -Encourage PO intake -Monitor daily labs -Followed by oncologist Dr. Serrano Newly incarcerated symptomatic supraumbilical hernia -CT scan with IV contrast that showed wall thickening of the cecum, ascending colon and small bowel -Pain improved -Seen by surgery and GI -Abdominal binder for hernia reduction -Will consider minimally invasive operative repair once she recovers from chemo Hypertension -Remains hypotensive, 94-108/54-72 -Seen by youth worker Dr. Tangela Garza -On IV fluids -Encourage PO fluids and salt intake -Continue to monitor BP -Will order 1 L fluid bolus COPD -Stable, on room air -Re-start Spiriva -Duonebs PRN HIV -Re-started on [place] Triumeq -Valtrex 500 mg daily -Contact isolation d/t ESBL ecoli UTI -Followed by Dr. Yanick Blank -Klonopin 0.25 mg BID FEN -NS @ 100 cc/hr -Replete electrolytes as needed -Regular diet and Ensure TID Prophylaxis GI: Protonix DVT SCDs and PT -No chemical prophylaxs d/t decreased platelets. FULL CODE Visit type - Emergency Visit Emergency Visit: No - New Patient This patient is new to me today: No - Critical Care Critical Care patient: No
--- NOTE | 2018-06-17 13:02 | PN ---
Progress Note (short form) - Note Progress Note: Patient seen and examined Anorexia with liitle intake . Had pudding and liquid supplement . Has had 2 bowel movements today so far. First liquid, second- semisolid Stool c. diff--pending results Last Vital Signs Temp Pulse Resp BP Pulse Ox 98.2 F 90 18 97/70 97 06/17/18 09:58 06/17/18 09:58 06/17/18 09:58 06/17/18 09:58 06/17/18 09:00 HEENT: DENNY, EOM Intact Oropharynx: No thrush, No mucositis Cor: RSR, No murmurs, No gallops Lungs --clear ABDomen- distended ; no localizing tenderness Ext:No significant edema Skin: No rashes, Integument intact CBC, BMP 06/17/18 06:00 06/17/18 06:00 Current Medications Generic Name Dose Route Start Last Admin Trade Name Freq PRN Reason Stop Dose Admin Acetaminophen 325 mg 06/13/18 17:05 06/15/18 15:27 Tylenol - PO 325 mg Q8H PRN Administration PAIN LEVEL 6-10 Albuterol/Ipratropium 1 amp 06/13/18 18:27 Duoneb - NEB Q6H PRN SHORTNESS OF BREATH Clonazepam 0.25 mg 06/13/18 16:53 Klonopin - PO BID PRN ANXIETY Cyclobenzaprine HCl 5 mg 06/15/18 22:00 06/17/18 06:18 Flexeril - PO Not Given TID TERRENCE Emollient Ointment 1 applic 06/15/18 22:00 06/17/18 09:51 Aquaphor - TP 1 applic BID TERRENCE Administration IV Flush 10 ml 06/15/18 11:04 06/17/18 06:00 Luisa-Cath Flush IVPUSH 10 ml PRN PRN Administration FLUSH IV Flush 10 ml 06/16/18 00:22 Luisa-Cath Flush IVPUSH PRN PRN protocol, maintain patency Sodium Chloride 1,000 mls @ 75 mls/hr 06/15/18 15:15 06/16/18 22:32 Normal Saline - IV Not Given ASDIR TERRENCE Fluorouracil 950 mg/ Sodium 519 mls @ 21.625 mls/hr 06/16/18 15:00 06/16/18 18:12 Chloride IV 06/17/18 14:59 21.625 mls/hr ONCE ONE Administration Sodium Chloride 1,000 mls @ 1,000 mls/hr 06/17/18 12:37 Normal Saline - IV 06/17/18 13:36 ASDIR STA Multivitamins/Minerals/Vitamin C 1 tab 06/14/18 10:00 06/17/18 09:49 Tab-A-Vit - PO 1 tab DAILY TERRENCE Administration Non-Formulary Medication 1 each 06/14/18 16:00 06/17/18 09:49 Abacavir/Dolutegravir/Lamivudi [Triumeq Tablet] PO 1 each DAILY TERRENCE Administration Ondansetron HCl 8 mg 06/13/18 14:52 06/16/18 14:53 Zofran Injection IVPB 8 mg Q6H PRN Administration NAUSEA AND/OR VOMITING Oxycodone HCl 10 mg 06/13/18 17:05 06/15/18 06:38 Roxicodone - PO 10 mg Q8H PRN Administration PAIN LEVEL 6-10 Simethicone 80 mg 06/15/18 11:06 06/15/18 13:28 Mylicon - PO 80 mg Q4H PRN Administration GAS Tiotropium [place] 2 puff 06/16/18 10:15 06/17/18 09:49 Spiriva Respimat IH 2 puff DAILY TERRENCE Administration Valacyclovir HCl 500 mg 06/14/18 16:15 06/17/18 09:49 Valtrex - PO 500 mg DAILY TERRENCE Administration Microbiology 06/16/18 12:50 Stool Salmonella/Shigella Culture - Preliminary NO ENTERIC PATHOGENS, 24 HOURS, ON PRIMARY PLATES 06/16/18 12:50 Stool Yersinia Culture - Preliminary NO ENTERIC PATHOGENS, 24 HOURS, ON PRIMARY PLATES 06/16/18 12:50 Stool Vibrio Culture - Final NO GROWTH OF VIBRIO SPECIES OBTAINED 06/16/18 12:50 Stool Escherichia coli 0157 Culture - Final NO GROWTH OF E COLI 0157 OBTAINED Impression: Day # 4 of chemotherapy with 5FU/mitomycin Pancytopenia secondary to chemotherapy HIV Umbilical hernia- s/p reduction Diarrhea- c. diff pending ; earliest 5FU chemotherapy toxicity is diarrhea secondary to chemotherapy- if c. diff- negative --immodium prn Plan: Monitor chemistries CBC Complete course of chemotherapy will need neulasta early next week . Encourage exercise, activity Rx of diarrhea pending stool culture... May be discharged tomorrow pending lab and clinical status
--- NOTE | 2018-06-17 13:17 | ECHO ---
Name: ZEB VALIENTE Exam:Adult Echocardiogram Study Date: 06/17/2018 10:31 AM Age: 62 yrs Reason For Study: HYPOTENSION Height: 69 in Weight: 166 lb BSA: 1.9 m2 MMode/2D Measurements & Calculations Ao root diam: 3.3 cm LA dimension: 3.3 cm ACS: 1.7 cm Doppler Measurements & Calculations MV E max jaylan: 43.2 cm/sec Ao V2 max: 115.5 cm/sec MV A max jaylan: 53.8 cm/sec Ao max P.3 mmHg MV E/A: 0.80 Ao V2 mean: 82.4 cm/sec Ao mean P.1 mmHg Ao V2 VTI: 19.1 cm TR max jaylan: 110.3 cm/sec Med Peak E' Jaylan: 10.1 cm/sec TR max P.9 mmHg Med E/e': 4.3 Lat Peak E' Jaylan: 14.4 cm/sec Lat E/e': 3.0 Left Ventricle Left ventricular systolic function is grossly normal. Ejection Fraction = 55-60%. Right Ventricle The right ventricle is grossly normal size. The right ventricular systolic function is grossly normal . Atria Normal left and right atrial size and function. Mitral Valve The mitral valve is normal in structure and function. There is no mitral valve stenosis. There is mil d mitral regurgitation. Tricuspid Valve The tricuspid valve is normal in structure and function. There is mild tricuspid regurgitation. Aortic Valve The aortic valve opens well. No hemodynamically significant valvular aortic stenosis. Pulmonic Valve The pulmonic valve is not well seen, but is grossly normal. There is no pulmonic valvular stenosis. T here is no pulmonic valvular regurgitation. Great Vessels The aortic root is normal size. Pericardium/Pleura There is no pericardial effusion. Interpretation Summary Left ventricular systolic function is grossly normal. The right ventricle is grossly normal size. The right ventricular systolic function is grossly normal. There is mild mitral regurgitation. There is mild tricuspid regurgitation. There is no pericardial effusion. MD Darling *Andreia 06/17/2018 01:16 PM
--- NOTE | 2018-06-17 14:36 | PN ---
Progress Note (short form) - Note Progress Note: s:complains of diarrhea. no chest pain, palps, dyspnea. occasionally gets dizzy when stands up Current Medications Acetaminophen (Tylenol -) 325 mg PO Q8H PRN PRN Reason: PAIN LEVEL 6-10 Last Admin: 06/15/18 15:27 Dose: 325 mg Albuterol/Ipratropium (Duoneb -) 1 amp NEB Q6H PRN PRN Reason: SHORTNESS OF BREATH Clonazepam (Klonopin -) 0.25 mg PO BID PRN PRN Reason: ANXIETY Cyclobenzaprine HCl (Flexeril -) 5 mg PO TID [facility] Last Admin: 06/17/18 06:18 Dose: Not Given Emollient Ointment (Aquaphor -) 1 applic TP BID [facility] Last Admin: 06/17/18 09:51 Dose: 1 applic IV Flush (Luisa-Cath Flush) 10 ml IVPUSH PRN PRN PRN Reason: FLUSH Last Admin: 06/17/18 06:00 Dose: 10 ml IV Flush (Luisa-Cath Flush) 10 ml IVPUSH PRN PRN PRN Reason: protocol, maintain patency Sodium Chloride (Normal Saline -) 1,000 mls @ 75 mls/hr IV ASDIR [facility] Last Admin: 06/16/18 22:32 Dose: Not Given Fluorouracil 950 mg/ Sodium (Chloride) 519 mls @ 21.625 mls/hr IV ONCE ONE Stop: 06/17/18 14:59 Last Admin: 06/16/18 18:12 Dose: 21.625 mls/hr Multivitamins/Minerals/Vitamin C (Tab-A-Vit -) 1 tab PO DAILY [facility] Last Admin: 06/17/18 09:49 Dose: 1 tab Non-Formulary Medication (Abacavir/Dolutegravir/Lamivudi [Triumeq Tablet]) 1 each PO DAILY [facility] Last Admin: 06/17/18 09:49 Dose: 1 each Ondansetron HCl (Zofran Injection) 8 mg IVPB Q6H PRN PRN Reason: NAUSEA AND/OR VOMITING Last Admin: 06/16/18 14:53 Dose: 8 mg Oxycodone HCl (Roxicodone -) 10 mg PO Q8H PRN PRN Reason: PAIN LEVEL 6-10 Last Admin: 06/15/18 06:38 Dose: 10 mg Simethicone (Mylicon -) 80 mg PO Q4H PRN PRN Reason: GAS Last Admin: 06/15/18 13:28 Dose: 80 mg Tiotropium [place] (Spiriva Respimat) 2 puff IH DAILY [facility] Last Admin: 06/17/18 09:49 Dose: 2 puff Valacyclovir HCl (Valtrex -) 500 mg PO DAILY [facility] Last Admin: 06/17/18 09:49 Dose: 500 mg Vital Signs: Vital Signs Period Temp Pulse Resp BP Sys/Wade Pulse Ox Last 24 Hr 97.5 F-99.1 F 88-115 17-20 86-108/52-72 97-97 Constitutional: Yes: No Distress, Calm Eyes: Yes: Conjunctiva Clear, EOM Intact HENT: Yes: Atraumatic, Normocephalic Neck: Yes: Supple, Trachea Midline Respiratory: Yes: Regular, CTA Bilaterally Gastrointestinal: Yes: Normal Bowel Sounds, Soft Cardiovascular: Yes: Regular Rate and Rhythm JVD: No Carotid Bruit: No PMI: Non-Displaced Heart Sounds: Yes: S1, S2 Musculoskeletal: No: Back Pain Extremities: No: Cold, Cyanosis Edema: No Peripheral Pulses WNL: Yes Peripheral Pulses: 2+ Left Doralis Pedis, 2+ Right Dorsalis Pedis Integumentary: No: Jaundice Neurological: Yes: Alert, Oriented Psychiatric: Yes: Alert, Oriented Assessment/Plan echo 06/2018 nl LV/RV, mild MR, mild TR Hypotension - nl EF on echo - likely related to dehydration, also has diarrhea. continue IV fluids for now - may be related to sedating meds as well (flexeril, narcotics, benzos) - encourage PO hydration, salt intake, appetite has been low with chemo squamous cell anal cancer - chemo and pain control per primary team, onc incarcerated hernia - GI and surgery following COPD - stable, manage per primary HIV - on HAART, ID following
--- NOTE | 2018-06-17 15:29 | PN ---
Progress Note (short form) - Note Progress Note: less pain more comfortable +diarrhea Vital Signs Period Temp Pulse Resp BP Sys/Wade Pulse Ox Last 24 Hr 97.5 F-99.1 F 88-115 17-20 86-108/52-72 97-97 cor-rrr lungs clear abd soft,still umbilical discomfort with palpation ext no edema CBC, BMP 06/17/18 06:00 06/17/18 06:00 Microbiology 06/16/18 12:50 Stool Clostridium difficile Antigen (JENNIFER) - Final 06/16/18 12:50 Stool Clostridium difficile Toxin Assay - Final 06/16/18 12:50 Stool Salmonella/Shigella Culture - Preliminary NO ENTERIC PATHOGENS, 24 HOURS, ON PRIMARY PLATES 06/16/18 12:50 Stool Yersinia Culture - Preliminary NO ENTERIC PATHOGENS, 24 HOURS, ON PRIMARY PLATES 06/16/18 12:50 Stool Vibrio Culture - Final NO GROWTH OF VIBRIO SPECIES OBTAINED 06/16/18 12:50 Stool Escherichia coli 0157 Culture - Final NO GROWTH OF E COLI 0157 OBTAINED a/p abdominal pain- umbilical hernia- reduced at bedside, f/u surgery reports less pain continue with binder diarrhea- secondary to chemo= cdiff and cultures are negative anal cancer on chemo per oncology HIV- continue art, continue valtrex contact isolation- history esbl ecoli UTI Problem List - Problems (1) Anal cancer Code(s): C21.0 - MALIGNANT NEOPLASM OF ANUS, UNSPECIFIED (2) HIV (human immunodeficiency virus infection) Code(s): Z21 - ASYMPTOMATIC HUMAN IMMUNODEFICIENCY VIRUS INFECTION STATUS
[2018-06-17] MEDS: SODIUM CHLORIDE 1,000 ML IV SCH (15:54)
[2018-06-17] MEDS ORDERED: LOPERAMIDE HCL 2 MG CAPSULE PO ONE (16:00)
[2018-06-18] MEDS: CYCLOBENZAPRINE HCL 10 MG TABLET (FP) PO SCH (05:59)
[2018-06-18] MEDS: oxyCODONE HCL 5 MG TABLET PO PRN ×2 (06:01→13:22)
[2018-06-18] MEDS ORDERED: PT OWN MED DRAWER 7, Y5N ONE (06:28)
[2018-06-18 08:02] LABS: BASO % 0.5 % (0-2.0); EOS % 4.6 % (0-4.5); HEMATOCRIT 30.5 % (32.4-45.2); LYMPH % 18.8 % (8-40); MCH 34.2 pg (25.7-33.7); MEAN CELL VOLUME 103.5 fl (80-96); MEAN PLT VOLUME 9.2 fl (7.5-11.1); MONO % 8.6 % (3.8-10.2); NEUT % 67.5 % (42.8-82.8); PLATELET COUNT 85 K/MM3 (134-434); RBC 2.94 M/mm3 (3.60-5.2); RDW 17.7 % (11.6-15.6); WHITE BLOOD COUNT 2.4 K/mm3 (4.0-10.0)
[2018-06-18 08:34] LABS: ALK PHOS 96 U/L (45-117); ANION GAP 7 MMOL/L (8-16); BILIRUBIN,TOTAL 0.8 mg/dL (0.2-1); BLOOD UREA NITROGEN 7 mg/dL (7-18); CHLORIDE 112 mmol/L (98-107); CO2 23 mmol/L (21-32); CREATININE 0.7 mg/dL (0.55-1.3); GLUCOSE,RANDOM 80 mg/dL (74-106); MAGNESIUM 1.6 mg/dL (1.8-2.4); POTASSIUM 3.5 mmol/L (3.5-5.1); SGOT/AST 22 U/L (15-37); SGPT/ALT 16 U/L (13-61); SODIUM 142 mmol/L (136-145)
[2018-06-18] MEDS: valACYclovir HCL 500 MG TABLET (FP) PO SCH (10:25)
[2018-06-18] MEDS: MINERAL OIL/PET HY-PHL TOPICAL OINTMENT 454 GM JAR TP SCH ×2 (10:25→22:01)
[2018-06-18] MEDS: MULTIVITAMINS (DAILY MVI) TABLET (FP) PO SCH (10:25)
[2018-06-18] MEDS: TIOTROPIUM BROMIDE 2.5 MCG (SPIRIVA) RESPIMAT INHALER IH SCH (10:25)
[2018-06-18] MEDS: ONDANSETRON 4 MG/2 ML VIAL IVPB PRN (11:29)
[2018-06-18] MEDS ORDERED: LIDOCAINE HCL 1%, 10 MG/ML (50 mL VIAL) SQ ONE (11:33)
--- NOTE | 2018-06-18 11:34 | PN ---
GI Progress Note Subjective: No acute events Some tenderness at the periumbilical site but overall improved States having had loose BM's last night - Objective Vital Signs: Vital Signs Temperature 98.2 F 06/18/18 06:00 Pulse Rate 104 H 06/18/18 11:25 Respiratory Rate 18 06/18/18 06:00 Blood Pressure 110/74 06/18/18 11:25 O2 Sat by Pulse Oximetry (%) 97 06/17/18 21:00 Constitutional: Calm Eyes: No: Sclera Icterus Cardiovascular: Yes: Regular Rate and Rhythm Respiratory: Yes: CTA Bilaterally Gastrointestinal Inspection: Yes: Distention (protuberant abdomen) ...Auscultate: Yes: Normoactive Bowel Sounds ...Palpate: Yes: Tenderness (tenderness at reducible umbilical hernia.). No: Guarding ...Percussion: No: Tympanitic Edema: No (No LE edema) Neurological: Yes: Alert Labs: CBC, BMP 06/18/18 06:50 06/18/18 06:50 INR, PTT INR 1.22 (0.83-1.09) H 06/15/18 15:30 Hepatic Panel Total Bilirubin 0.8 mg/dL (0.2-1) 06/18/18 06:50 Direct Bilirubin 0.4 mg/dL (0.0-0.2) H 06/13/18 09:25 AST 22 U/L (15-37) 06/18/18 06:50 ALT 16 U/L (13-61) 06/18/18 06:50 Alkaline Phosphatase 96 U/L (45-117) 06/18/18 06:50 Albumin 2.0 g/dl (3.4-5.0) L 06/18/18 06:50 Microbiology 06/16/18 12:50 Stool Salmonella/Shigella Culture - Final 06/16/18 12:50 Stool Escherichia coli 0157 Culture - Final NO GROWTH OF SALMONELLA OR SHIGELLA SPECIES OBTAINED NO GROWTH OF CAMPYLOBACTER SPECIES OBTAINED NO GROWTH OF YERSINIA SPECIES OBTAINED NO GROWTH OF VIBRIO SPECIES OBTAINED NO GROWTH OF E COLI 0157 OBTAINED 06/16/18 12:50 Stool Clostridium difficile Antigen (JENNFIER) - Neg 06/16/18 12:50 Stool Clostridium difficile Toxin Assay - Neg Problem List - Problems (1) Umbilical hernia Assessment/Plan: Hernia reducible still with tenderness at site Being evaluated by surgery today: plan for further reduction after local anesthesia Code(s): K42.9 - UMBILICAL HERNIA WITHOUT OBSTRUCTION OR GANGRENE (2) Abnormal CT of the abdomen Assessment/Plan: Some loose bowel movements reported Stool studies negative to date Code(s): R93.5 - ABN FINDINGS ON DX IMAGING OF ABD REGIONS, INC RETROPERITON
--- NOTE | 2018-06-18 11:37 | PN ---
Progress Note (short form) - Note Progress Note: Patient seen and examined Anorexia with liitle intake is her biggest issue Difficult to keep anything down Had pudding and liquid supplement . Vital Signs Period Temp Pulse Resp BP Sys/Wade Pulse Ox Last 24 Hr 97.5 F-98.2 F 77-122 18-20 86-110/52-75 97 Legs 1+ edema CBC, BMP 06/18/18 06:50 06/18/18 06:50 Active Medications Generic Name Dose Route Start Last Admin Trade Name Freq PRN Reason Stop Dose Admin Acetaminophen 325 mg 06/13/18 17:05 06/15/18 15:27 Tylenol - PO 325 mg Q8H PRN Administration PAIN LEVEL 6-10 Albuterol/Ipratropium 1 amp 06/13/18 18:27 Duoneb - NEB Q6H PRN SHORTNESS OF BREATH Bupivacaine HCl 10 mg 06/18/18 11:45 Sensorcaine 0.5% - IJ 06/18/18 11:46 ONCE ONE Clonazepam 0.25 mg 06/13/18 16:53 Klonopin - PO BID PRN ANXIETY Cyclobenzaprine HCl 5 mg 06/15/18 22:00 06/18/18 05:59 Flexeril - PO 5 mg TID TERRENCE Administration Emollient Ointment 1 applic 06/15/18 22:00 06/18/18 10:25 Aquaphor - TP 1 applic BID TERRENCE Administration IV Flush 10 ml 06/15/18 11:04 06/17/18 06:00 Luisa-Cath Flush IVPUSH 10 ml PRN PRN Administration FLUSH IV Flush 10 ml 06/16/18 00:22 Luisa-Cath Flush IVPUSH PRN PRN protocol, maintain patency Multivitamins/Minerals/Vitamin C 1 tab 06/14/18 10:00 06/18/18 10:25 Tab-A-Vit - PO 1 tab DAILY TERERNCE Administration Non-Formulary Medication 1 each 06/14/18 16:00 06/18/18 10:26 Abacavir/Dolutegravir/Lamivudi [Triumeq Tablet] PO 1 each DAILY TERRENCE Administration Ondansetron HCl 8 mg 06/13/18 14:52 06/18/18 11:29 Zofran Injection IVPB 8 mg Q6H PRN Administration NAUSEA AND/OR VOMITING Oxycodone HCl 10 mg 06/13/18 17:05 06/18/18 06:01 Roxicodone - PO 10 mg Q8H PRN Administration PAIN LEVEL 6-10 Simethicone 80 mg 06/15/18 11:06 06/15/18 13:28 Mylicon - PO 80 mg Q4H PRN Administration GAS Tiotropium [place] 2 puff 06/16/18 10:15 06/18/18 10:25 Spiriva Respimat IH 2 puff DAILY TERRENCE Administration Valacyclovir HCl 500 mg 06/14/18 16:15 06/18/18 10:25 Valtrex - PO 500 mg DAILY TERRENCE Administration Impression: Day # 5 of chemotherapy with 5FU/mitomycin Pancytopenia secondary to chemotherapy HIV Umbilical hernia- s/p reduction Diarrhea- c. diff pending ; earliest 5FU chemotherapy toxicity is diarrhea secondary to chemotherapy- if c. diff- negative --immodium prn Plan: Monitor chemistries CBC Complete course of chemotherapy will need neulasta early next week . Encourage exercise, activity Rx of diarrhea pending stool culture... still not yet there for discharge
[2018-06-18] MEDS ORDERED: BUPIVACAINE HCL 0.5% 250 MG/50 ML VIAL IJ ONE (11:45)
--- NOTE | 2018-06-18 11:45 | PN ---
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 - Current Medication List Current Medications: Active Medications Acetaminophen (Tylenol -) 325 mg PO Q8H PRN PRN Reason: PAIN LEVEL 6-10 Last Admin: 06/15/18 15:27 Dose: 325 mg Albuterol/Ipratropium (Duoneb -) 1 amp NEB Q6H PRN PRN Reason: SHORTNESS OF BREATH Bupivacaine HCl (Sensorcaine 0.5% -) 10 mg IJ ONCE ONE Stop: 06/18/18 11:46 Clonazepam (Klonopin -) 0.25 mg PO BID PRN PRN Reason: ANXIETY Cyclobenzaprine HCl (Flexeril -) 5 mg PO TID [facility] Last Admin: 06/18/18 05:59 Dose: 5 mg Emollient Ointment (Aquaphor -) 1 applic TP BID [facility] Last Admin: 06/18/18 10:25 Dose: 1 applic IV Flush (Luisa-Cath Flush) 10 ml IVPUSH PRN PRN PRN Reason: FLUSH Last Admin: 06/17/18 06:00 Dose: 10 ml IV Flush (Luisa-Cath Flush) 10 ml IVPUSH PRN PRN PRN Reason: protocol, maintain patency Multivitamins/Minerals/Vitamin C (Tab-A-Vit -) 1 tab PO DAILY [facility] Last Admin: 06/18/18 10:25 Dose: 1 tab Non-Formulary Medication (Abacavir/Dolutegravir/Lamivudi [Triumeq Tablet]) 1 each PO DAILY [facility] Last Admin: 06/18/18 10:26 Dose: 1 each Ondansetron HCl (Zofran Injection) 8 mg IVPB Q6H PRN PRN Reason: NAUSEA AND/OR VOMITING Last Admin: 06/18/18 11:29 Dose: 8 mg Oxycodone HCl (Roxicodone -) 10 mg PO Q8H PRN PRN Reason: PAIN LEVEL 6-10 Last Admin: 06/18/18 06:01 Dose: 10 mg Simethicone (Mylicon -) 80 mg PO Q4H PRN PRN Reason: GAS Last Admin: 06/15/18 13:28 Dose: 80 mg Tiotropium [place] (Spiriva Respimat) 2 puff IH DAILY [facility] Last Admin: 06/18/18 10:25 Dose: 2 puff Valacyclovir HCl (Valtrex -) 500 mg PO DAILY [facility] Last Admin: 06/18/18 10:25 Dose: 500 mg - Objective Vital Signs: Vital Signs Temperature 98.2 F 06/18/18 06:00 Pulse Rate 104 H 06/18/18 11:25 Respiratory Rate 18 06/18/18 06:00 Blood Pressure 110/74 06/18/18 11:25 O2 Sat by Pulse Oximetry (%) 97 06/17/18 21:00 Constitutional: Yes: Well Nourished, No Distress, Calm Eyes: Yes: Conjunctiva Clear, EOM Intact HENT: Yes: Atraumatic, Normocephalic Neck: Yes: Supple, Trachea Midline Cardiovascular: Yes: Regular Rate and Rhythm, S1, S2 Respiratory: Yes: Regular, CTA Bilaterally Gastrointestinal: Yes: Normal Bowel Sounds, Soft, Abdomen, Obese, Hernia ( supraumbilial hernia), Tenderness. No: Tenderness, Epigastrium, Tenderness, Rebound ...Rectal Exam: Yes: Deferred Genitourinary: No: CVA Tenderness - Left, CVA Tenderness - Right Musculoskeletal: No: Muscle Pain, Muscle Weakness Extremities: No: Cool, Cyanosis Integumentary: No: Jaundice, Rash Neurological: Yes: Alert, Oriented Psychiatric: Yes: Alert, Oriented Labs: CBC, BMP 06/18/18 06:50 06/18/18 06:50 INR, PTT INR 1.22 (0.83-1.09) H 06/15/18 15:30 Problem List - Problems (1) Incarcerated umbilical hernia Code(s): K42.0 - UMBILICAL HERNIA WITH OBSTRUCTION, WITHOUT GANGRENE (2) Abdominal pain Code(s): R10.9 - UNSPECIFIED ABDOMINAL PAIN Qualifiers: Abdominal location: periumbilical Qualified Code(s): R10.33 - Periumbilical pain (3) Depression Code(s): F32.9 - MAJOR DEPRESSIVE DISORDER, SINGLE EPISODE, UNSPECIFIED (4) COPD (chronic obstructive pulmonary disease) Code(s): J44.9 - CHRONIC OBSTRUCTIVE PULMONARY DISEASE, UNSPECIFIED (5) HIV (human immunodeficiency virus infection) Code(s): Z21 - ASYMPTOMATIC HUMAN IMMUNODEFICIENCY VIRUS INFECTION STATUS
--- NOTE | 2018-06-18 12:23 | PN ---
Progress Note (short form) - Note Progress Note: s:no chest pain, palps, dyspnea. occasionally gets dizzy when stands up Current Medications Generic Name Dose Route Start Last Admin Trade Name Freq PRN Reason Stop Dose Admin Acetaminophen 325 mg 06/13/18 17:05 06/15/18 15:27 Tylenol - PO 325 mg Q8H PRN Administration PAIN LEVEL 6-10 Albuterol/Ipratropium 1 amp 06/13/18 18:27 Duoneb - NEB Q6H PRN SHORTNESS OF BREATH Clonazepam 0.25 mg 06/13/18 16:53 Klonopin - PO BID PRN ANXIETY Cyclobenzaprine HCl 5 mg 06/18/18 11:44 Flexeril - PO Q8H PRN MUSCLE SPASMS Emollient Ointment 1 applic 06/15/18 22:00 06/18/18 10:25 Aquaphor - TP 1 applic BID TERRENCE Administration IV Flush 10 ml 06/15/18 11:04 06/17/18 06:00 Luisa-Cath Flush IVPUSH 10 ml PRN PRN Administration FLUSH IV Flush 10 ml 06/16/18 00:22 Luisa-Cath Flush IVPUSH PRN PRN protocol, maintain patency Multivitamins/Minerals/Vitamin C 1 tab 06/14/18 10:00 06/18/18 10:25 Tab-A-Vit - PO 1 tab DAILY TERRENCE Administration Non-Formulary Medication 1 each 06/14/18 16:00 06/18/18 10:26 Abacavir/Dolutegravir/Lamivudi [Triumeq Tablet] PO 1 each DAILY TERRENCE Administration Ondansetron HCl 8 mg 06/13/18 14:52 06/18/18 11:29 Zofran Injection IVPB 8 mg Q6H PRN Administration NAUSEA AND/OR VOMITING Oxycodone HCl 10 mg 06/13/18 17:05 06/18/18 06:01 Roxicodone - PO 10 mg Q8H PRN Administration PAIN LEVEL 6-10 Simethicone 80 mg 06/15/18 11:06 06/15/18 13:28 Mylicon - PO 80 mg Q4H PRN Administration GAS Tiotropium [place] 2 puff 06/16/18 10:15 06/18/18 10:25 Spiriva Respimat IH 2 puff DAILY TERRENCE Administration Valacyclovir HCl 500 mg 06/14/18 16:15 06/18/18 10:25 Valtrex - PO 500 mg DAILY TERRENCE Administration Vital Signs: Vital Signs Period Temp Pulse Resp BP Sys/Wade Pulse Ox Last 24 Hr 97.5 F-98.2 F 77-122 18-20 86-110/52-75 97 Constitutional: Yes: No Distress, Calm Eyes: Yes: Conjunctiva Clear Respiratory: mild bibasilar crackles, nl eff Gastrointestinal: Yes: Normal Bowel Sounds, Soft Cardiovascular: Yes: Regular Rate and Rhythm JVD: No Heart Sounds: Yes: S1, S2 Musculoskeletal: No: Back Pain Extremities: No: Cold, Cyanosis Edema: No Peripheral Pulses: 2+ Left Doralis Pedis, 2+ Right Dorsalis Pedis Integumentary: No: Jaundice diaphoresis Neurological: Yes: Alert, Oriented CBC, BMP 06/18/18 06:50 06/18/18 06:50 Assessment/Plan echo 06/2018: nl LV/RV, mild MR, mild TR Hypotension - nl EF on echo - pt reports chronically low bp - got ivfs but now developing some vol overload, dc ivfs - ortho vitals unremarkable here - appetite has been low with chemo. encouraged PO hydration, salt intake. - could use midodrine if symptoms limiting to pt squamous cell anal cancer - chemo and pain control per primary team, onc incarcerated hernia - GI and surgery following COPD - stable, manage per primary HIV - on HAART, ID following
[2018-06-18] MEDS ORDERED: MAGNESIUM SULF 50% (8.12 MEQ/2 ML-1 GM VIAL) IVPB ONE (15:18)
--- NOTE | 2018-06-18 15:54 | PN ---
Physical Exam: SUBJECTIVE: Patient seen and examined, finished 5-FU and Mitomycin SCC Anal cancer yesterday. Some fluid overload today with swelling in the extremeties, IV fluids d/ra. No diarrhea today but poor appetite. Her hernia was reduced and abdominal binder replaced by Dr. Shepherd. She was seen today by oncology, cardiology, GI and her PCP. Episode of tachycardia in the afternoon. ECG ordered. OBJECTIVE: Vital Signs Period Temp Pulse Resp BP Sys/Wade Pulse Ox Last 24 Hr 97.7 F-98.2 F 77-123 18-18 94-112/61-75 97-97 GENERAL: The patient is awake, alert, and fully oriented, in no acute distress. HEAD: Normal with no signs of trauma. EYES: PERRL, extraocular movements intact, sclera anicteric, conjunctiva clear. No ptosis. ENT: Ears normal, nares patent, oropharynx clear without exudates, moist mucous membranes. NECK: Trachea midline, full range of motion, supple. LUNGS: Expiratory wheeze, no crackles, no accessory muscle use. HEART: Regular rate and rhythm, S1, S2 without murmur, rub or gallop. ABDOMEN: Distended, non-tender protrusion at umbilicus, normoactive bowel sounds EXTREMITIES: 2+ pulses, warm, well-perfused, no edema. NEUROLOGICAL: No facial droop, normal speech, slow, steady gate PSYCH: Normal mood, normal affect. SKIN: Warm, dry, no rashes or lesions noted Laboratory Results - last 24 hr 06/18/18 06/18/18 06:50 06:50 WBC 2.4 L RBC 2.94 L Hgb 10.0 L Hct 30.5 L MCV 103.5 H MCH 34.2 H MCHC 33.0 RDW 17.7 H Plt Count 85 L MPV 9.2 Absolute Neuts (auto) 1.6 Neutrophils % 67.5 Lymphocytes % 18.8 Monocytes % 8.6 Eosinophils % 4.6 H Basophils % 0.5 Nucleated RBC % 0 Sodium 142 Potassium 3.5 Chloride 112 H Carbon Dioxide 23 Anion Gap 7 L BUN 7 Creatinine 0.7 Creat Clearance w eGFR > 60 Random Glucose 80 Calcium 7.0 L Magnesium 1.6 L Total Bilirubin 0.8 AST 22 ALT 16 Alkaline Phosphatase 96 Total Protein 6.0 L Albumin 2.0 L Active Medications Generic Name Dose Route Start Last Admin Trade Name Freq PRN Reason Stop Dose Admin Acetaminophen 325 mg 06/13/18 17:05 06/15/18 15:27 Tylenol - PO 325 mg Q8H PRN Administration PAIN LEVEL 6-10 Albuterol/Ipratropium 1 amp 06/13/18 18:27 06/18/18 14:49 Duoneb - NEB 1 amp Q6H PRN Administration SHORTNESS OF BREATH Clonazepam 0.25 mg 06/13/18 16:53 06/18/18 15:19 Klonopin - PO 0.25 mg BID PRN Administration ANXIETY Cyclobenzaprine HCl 5 mg 06/18/18 11:44 Flexeril - PO Q8H PRN MUSCLE SPASMS Emollient Ointment 1 applic 06/15/18 22:00 06/18/18 10:25 Aquaphor - TP 1 applic BID TERRENCE Administration IV Flush 10 ml 06/15/18 11:04 06/17/18 06:00 Luisa-Cath Flush IVPUSH 10 ml PRN PRN Administration FLUSH IV Flush 10 ml 06/16/18 00:22 Luisa-Cath Flush IVPUSH PRN PRN protocol, maintain patency Multivitamins/Minerals/Vitamin C 1 tab 06/14/18 10:00 06/18/18 10:25 Tab-A-Vit - PO 1 tab DAILY TERRENCE Administration Non-Formulary Medication 1 each 06/14/18 16:00 06/18/18 10:26 Abacavir/Dolutegravir/Lamivudi [Triumeq Tablet] PO 1 each DAILY TERRENCE Administration Ondansetron HCl 8 mg 06/13/18 14:52 06/18/18 11:29 Zofran Injection IVPB 8 mg Q6H PRN Administration NAUSEA AND/OR VOMITING Oxycodone HCl 10 mg 06/13/18 17:05 06/18/18 13:22 Roxicodone - PO 10 mg Q8H PRN Administration PAIN LEVEL 6-10 Simethicone 80 mg 06/15/18 11:06 06/15/18 13:28 Mylicon - PO 80 mg Q4H PRN Administration GAS Tiotropium [place] 2 puff 06/16/18 10:15 06/18/18 10:25 Spiriva Respimat IH 2 puff DAILY TERRENCE Administration Valacyclovir HCl 500 mg 06/14/18 16:15 06/18/18 10:25 Valtrex - PO 500 mg DAILY TERRENCE Administration ASSESSMENT/PLAN: 62 year-old female on the medicine service for chemotherapy as she has too many comorbidities to manage as an outpatient. She is day 4/5 5-FU and mitomycin. Squamous cell anal cancer -Colonoscopy 01/14/18 that revealed the anal cancer and retained stool in the cecum -Completed 5 days of yesterday 5-FU via right subclavian mediport -Pancytopenia -Neulasta early next week as per oncology -Tolerated chemo; no evident toxicity at this juncture but will continue to monitor. -Oxycodone 10 mg for pain -Encourage PO intake -Monitor daily labs -Followed by oncologist Dr. Serrano Newly incarcerated symptomatic supraumbilical hernia -CT scan with IV contrast that showed wall thickening of the cecum, ascending colon and small bowel -Pain improved -Hernia re-reduced by surgeon Dr. Shepherd today and abdominal binder re-applied -Patient had previously removed it because it was uncomfortable -Will consider minimally invasive operative repair once she recovers from chemo Hypotension -Normal EF on echo - today -Seen by global creative chairman Dr. Jimenes today -IV fluids d/ra d/t hypervolemia -Consider Midodrine if persistently symptomatic -Encourage PO fluids and salt intake -Continue to monitor BP Diarrhea -Likely secondary to chemo -No episodes today -Seen by GI Dr. Quinn -Stool cultures negative -Immodium PRN Hypomagnesemia -1.6 today -Likely secondary to diarrhea -Magnesium 2 mg IV given -Re-check level tomorrow COPD -Stable, on room air -Re-start Spiriva -Duonebs PRN HIV -On Haart Triumeq -Valtrex 500 mg daily -Contact isolation d/t ESBL ecoli UTI -Followed by Dr. Yanick Blank -Klonopin 0.25 mg BID PRN FEN -NS @ 100 cc/hr -Replete electrolytes as needed -Regular diet and Ensure TID Prophylaxis GI: Protonix DVT SCDs and PT -No chemical prophylaxs d/t decreased platelets. FULL CODE Visit type - Emergency Visit Emergency Visit: No - New Patient This patient is new to me today: No - Critical Care Critical Care patient: No
[2018-06-19] MEDS: oxyCODONE HCL 5 MG TABLET PO PRN ×3 (02:04→22:03)
[2018-06-19 08:18] LABS: HEMOGLOBIN 9.8 GM/dL (10.7-15.3); MCH 33.8 pg (25.7-33.7); MCHC 32.8 g/dl (32.0-36.0); MEAN CELL VOLUME 103.3 fl (80-96); MEAN PLT VOLUME 9.3 fl (7.5-11.1); PLATELET COUNT 86 K/MM3 (134-434); RDW 17.3 % (11.6-15.6); WHITE BLOOD COUNT 2.3 K/mm3 (4.0-10.0)
[2018-06-19 08:32] LABS: ANION GAP 7 MMOL/L (8-16); BLOOD UREA NITROGEN 6 mg/dL (7-18); CHLORIDE 110 mmol/L (98-107); CO2 24 mmol/L (21-32); CREATININE 0.7 mg/dL (0.55-1.3); GLUCOSE,RANDOM 81 mg/dL (74-106); MAGNESIUM 1.9 mg/dL (1.8-2.4); POTASSIUM 3.4 mmol/L (3.5-5.1); SODIUM 141 mmol/L (136-145)
--- NOTE | 2018-06-19 09:18 | PN ---
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 Completed her chemo therapy 06/17. hernia is temporized pain is improved after reduction - Current Medication List Current Medications: Active Medications Acetaminophen (Tylenol -) 325 mg PO Q8H PRN PRN Reason: PAIN LEVEL 6-10 Last Admin: 06/15/18 15:27 Dose: 325 mg Albuterol/Ipratropium (Duoneb -) 1 amp NEB Q6H PRN PRN Reason: SHORTNESS OF BREATH Last Admin: 06/18/18 14:49 Dose: 1 amp Clonazepam (Klonopin -) 0.25 mg PO BID PRN PRN Reason: ANXIETY Last Admin: 06/18/18 15:19 Dose: 0.25 mg Cyclobenzaprine HCl (Flexeril -) 5 mg PO Q8H PRN PRN Reason: MUSCLE SPASMS Emollient Ointment (Aquaphor -) 1 applic TP BID TERRENCE Last Admin: 06/18/18 22:01 Dose: 1 applic IV Flush (Luisa-Cath Flush) 10 ml IVPUSH PRN PRN PRN Reason: FLUSH Last Admin: 06/17/18 06:00 Dose: 10 ml IV Flush (Luisa-Cath Flush) 10 ml IVPUSH PRN PRN PRN Reason: protocol, maintain patency Multivitamins/Minerals/Vitamin C (Tab-A-Vit -) 1 tab PO DAILY TERRENCE Last Admin: 06/18/18 10:25 Dose: 1 tab Non-Formulary Medication (Abacavir/Dolutegravir/Lamivudi [Triumeq Tablet]) 1 each PO DAILY TERRENCE Last Admin: 06/18/18 10:26 Dose: 1 each Ondansetron HCl (Zofran Injection) 8 mg IVPB Q6H PRN PRN Reason: NAUSEA AND/OR VOMITING Last Admin: 06/18/18 11:29 Dose: 8 mg Oxycodone HCl (Roxicodone -) 10 mg PO Q8H PRN PRN Reason: PAIN LEVEL 6-10 Last Admin: 06/19/18 02:04 Dose: 10 mg Simethicone (Mylicon -) 80 mg PO Q4H PRN PRN Reason: GAS Last Admin: 06/15/18 13:28 Dose: 80 mg Tiotropium [place] (Spiriva Respimat) 2 puff IH DAILY [facility] Last Admin: 06/18/18 10:25 Dose: 2 puff Valacyclovir HCl (Valtrex -) 500 mg PO DAILY [facility] Last Admin: 06/18/18 10:25 Dose: 500 mg - Objective Vital Signs: Vital Signs Temperature 98.8 F 06/19/18 06:00 Pulse Rate 102 H 06/19/18 06:00 Respiratory Rate 18 06/19/18 06:00 Blood Pressure 103/56 L 06/19/18 06:00 O2 Sat by Pulse Oximetry (%) 96 06/18/18 21:00 Constitutional: Yes: No Distress, Calm, Thin Eyes: Yes: Conjunctiva Clear, EOM Intact HENT: Yes: Atraumatic, Normocephalic Neck: Yes: Supple, Trachea Midline Cardiovascular: Yes: Regular Rate and Rhythm, S1, S2 Respiratory: Yes: Regular, CTA Bilaterally Gastrointestinal: Yes: Normal Bowel Sounds, Soft, Abdomen, Obese, Hernia, Tenderness (supraumbilical). No: Tenderness, Epigastrium, Tenderness, Rebound, Vomiting Genitourinary: No: CVA Tenderness - Left, CVA Tenderness - Right Musculoskeletal: No: Muscle Pain, Muscle Weakness Extremities: No: Cool, Cyanosis Edema: No Peripheral Pulses WNL: Yes Peripheral Pulses: Left Radial: 2+, Right Radial: 2+, Left Doralis Pedis: 2+, Right Dorsalis Pedis: 2+ Integumentary: No: Jaundice, Rash Wound/Incision: No: Clean/Dry, Well Approximated Neurological: No: Alert, Oriented Psychiatric: No: Alert, Oriented Labs: CBC, BMP 06/19/18 06:59 06/19/18 06:59 INR, PTT INR 1.22 (0.83-1.09) H 06/15/18 15:30 Problem List - Problems (1) Incarcerated umbilical hernia Assessment/Plan: 62yo female with MMP with a newly incarcerated symptomatic supraumbilical hernia. will attempt to temporize with a manual reduction until her chemotherapy is completed. After she recovers she can be considered for minimal invasive operative repair (3-4 weeks from 06/17). Local bedside reduction pressure dressing replaced abdominal binder muscle relaxant will follow and repeat as needed Thank you for the opportunity to participate in the care of this patient. Code(s): K42.0 - UMBILICAL HERNIA WITH OBSTRUCTION, WITHOUT GANGRENE (2) Abdominal pain Code(s): R10.9 - UNSPECIFIED ABDOMINAL PAIN Qualifiers: Abdominal location: periumbilical Qualified Code(s): R10.33 - Periumbilical pain (3) Depression Code(s): F32.9 - MAJOR DEPRESSIVE DISORDER, SINGLE EPISODE, UNSPECIFIED (4) COPD (chronic obstructive pulmonary disease) Code(s): J44.9 - CHRONIC OBSTRUCTIVE PULMONARY DISEASE, UNSPECIFIED (5) HIV (human immunodeficiency virus infection) Code(s): Z21 - ASYMPTOMATIC HUMAN IMMUNODEFICIENCY VIRUS INFECTION STATUS
[2018-06-19] MEDS: TIOTROPIUM BROMIDE 2.5 MCG (SPIRIVA) RESPIMAT INHALER IH SCH (09:53)
[2018-06-19] MEDS: valACYclovir HCL 500 MG TABLET (FP) PO SCH (09:53)
[2018-06-19] MEDS: MULTIVITAMINS (DAILY MVI) TABLET (FP) PO SCH (09:53)
[2018-06-19] MEDS: MINERAL OIL/PET HY-PHL TOPICAL OINTMENT 454 GM JAR TP SCH ×2 (09:53→22:03)
--- NOTE | 2018-06-19 10:27 | PN ---
Progress Note (short form) - Note Progress Note: Patient seen and examined Anorexia with liitle intake is her biggest issue Difficult to keep anything down Had pudding and liquid supplement . she is trying to move and site in the chair I have encouraged her to do that her hernia has been reduced Vital Signs Period Temp Pulse Resp BP Sys/Wade Pulse Ox Last 24 Hr 97.9 F-99.1 F 98-123 18-20 102-112/56-75 96 Legs 1+ edema CBC, BMP 06/19/18 06:59 06/19/18 06:59 Current Medications Generic Name Dose Route Start Last Admin Trade Name Freq PRN Reason Stop Dose Admin Acetaminophen 325 mg 06/13/18 17:05 06/15/18 15:27 Tylenol - PO 325 mg Q8H PRN Administration PAIN LEVEL 6-10 Albuterol/Ipratropium 1 amp 06/13/18 18:27 06/18/18 14:49 Duoneb - NEB 1 amp Q6H PRN Administration SHORTNESS OF BREATH Clonazepam 0.25 mg 06/13/18 16:53 06/18/18 15:19 Klonopin - PO 0.25 mg BID PRN Administration ANXIETY Cyclobenzaprine HCl 5 mg 06/18/18 11:44 Flexeril - PO Q8H PRN MUSCLE SPASMS Emollient Ointment 1 applic 06/15/18 22:00 06/19/18 09:53 Aquaphor - TP 1 applic BID TERRENCE Administration IV Flush 10 ml 06/15/18 11:04 06/17/18 06:00 Luisa-Cath Flush IVPUSH 10 ml PRN PRN Administration FLUSH IV Flush 10 ml 06/16/18 00:22 Luisa-Cath Flush IVPUSH PRN PRN protocol, maintain patency Multivitamins/Minerals/Vitamin C 1 tab 06/14/18 10:00 06/19/18 09:53 Tab-A-Vit - PO 1 tab DAILY TERRENCE Administration Non-Formulary Medication 1 each 06/14/18 16:00 06/19/18 09:53 Abacavir/Dolutegravir/Lamivudi [Triumeq Tablet] PO 1 each DAILY TERRENCE Administration Ondansetron HCl 8 mg 06/13/18 14:52 06/18/18 11:29 Zofran Injection IVPB 8 mg Q6H PRN Administration NAUSEA AND/OR VOMITING Oxycodone HCl 10 mg 06/13/18 17:05 06/19/18 02:04 Roxicodone - PO 10 mg Q8H PRN Administration PAIN LEVEL 6-10 Simethicone 80 mg 06/15/18 11:06 06/15/18 13:28 Mylicon - PO 80 mg Q4H PRN Administration GAS Tiotropium [place] 2 puff 06/16/18 10:15 06/19/18 09:53 Spiriva Respimat IH 2 puff DAILY TERRENCE Administration Valacyclovir HCl 500 mg 06/14/18 16:15 06/19/18 09:53 Valtrex - PO 500 mg DAILY TERRENCE Administration Impression: Day # 6 of chemotherapy with 5FU/mitomycin Pancytopenia secondary to chemotherapy HIV Umbilical hernia- s/p reduction Diarrhea- better Plan: Complete course of chemotherapy will need neulasta early next week . Encourage exercise, activity. PT/OT
[2018-06-19] MEDS ORDERED: PORTA CATH FLUSH 10 ML IVPUSH PRN (10:56)
--- NOTE | 2018-06-19 12:37 | PN ---
Progress Note (short form) - Note Progress Note: s:no chest pain, palps, dyspnea. occasionally gets dizzy when stands up Current Medications Generic Name Dose Route Start Last Admin Trade Name Freq PRN Reason Stop Dose Admin Acetaminophen 325 mg 06/13/18 17:05 06/15/18 15:27 Tylenol - PO 325 mg Q8H PRN Administration PAIN LEVEL 6-10 Albuterol/Ipratropium 1 amp 06/13/18 18:27 06/18/18 14:49 Duoneb - NEB 1 amp Q6H PRN Administration SHORTNESS OF BREATH Clonazepam 0.25 mg 06/13/18 16:53 06/18/18 15:19 Klonopin - PO 0.25 mg BID PRN Administration ANXIETY Cyclobenzaprine HCl 5 mg 06/18/18 11:44 Flexeril - PO Q8H PRN MUSCLE SPASMS Emollient Ointment 1 applic 06/15/18 22:00 06/19/18 09:53 Aquaphor - TP 1 applic BID TERRENCE Administration IV Flush 10 ml 06/15/18 11:04 06/17/18 06:00 Luisa-Cath Flush IVPUSH 10 ml PRN PRN Administration FLUSH IV Flush 10 ml 06/16/18 00:22 Luisa-Cath Flush IVPUSH PRN PRN protocol, maintain patency IV Flush 10 ml 06/19/18 10:56 Luisa-Cath Flush IVPUSH PRN PRN FLUSH Loperamide HCl 2 mg 06/19/18 10:33 Imodium - PO Q8H PRN DIARRHEA Multivitamins/Minerals/Vitamin C 1 tab 06/14/18 10:00 06/19/18 09:53 Tab-A-Vit - PO 1 tab DAILY TERRENCE Administration Non-Formulary Medication 1 each 06/14/18 16:00 06/19/18 09:53 Abacavir/Dolutegravir/Lamivudi [Triumeq Tablet] PO 1 each DAILY TERRENCE Administration Ondansetron HCl 8 mg 06/13/18 14:52 06/18/18 11:29 Zofran Injection IVPB 8 mg Q6H PRN Administration NAUSEA AND/OR VOMITING Oxycodone HCl 10 mg 06/13/18 17:05 06/19/18 02:04 Roxicodone - PO 10 mg Q8H PRN Administration PAIN LEVEL 6-10 Simethicone 80 mg 06/15/18 11:06 06/15/18 13:28 Mylicon - PO 80 mg Q4H PRN Administration GAS Tiotropium [place] 2 puff 06/16/18 10:15 06/19/18 09:53 Spiriva Respimat IH 2 puff DAILY TERRENCE Administration Valacyclovir HCl 500 mg 06/14/18 16:15 06/19/18 09:53 Valtrex - PO 500 mg DAILY TERRENCE Administration Vital Signs: Vital Signs Period Temp Pulse Resp BP Sys/Wade Pulse Ox Last 24 Hr 97.9 F-99.1 F 98-123 18-20 88-112/56-67 95-96 Constitutional: Yes: No Distress, Calm Eyes: Yes: Conjunctiva Clear Respiratory: mild bibasilar crackles, nl eff Gastrointestinal: Yes: Normal Bowel Sounds, Soft Cardiovascular: Yes: Regular Rate and Rhythm JVD: No Heart Sounds: Yes: S1, S2 Musculoskeletal: No: Back Pain Extremities: No: Cold, Cyanosis Edema: No Peripheral Pulses: 2+ Left Doralis Pedis, 2+ Right Dorsalis Pedis Integumentary: No: Jaundice diaphoresis Neurological: Yes: Alert, Oriented CBC, BMP 06/19/18 06:59 06/19/18 06:59 Assessment/Plan echo 06/2018: nl LV/RV, mild MR, mild TR Hypotension - nl EF on echo - pt reports chronically low bp - got ivfs but then with some vol overload so dc ivfs 06/18 - ortho vitals unremarkable here - appetite has been low with chemo. encouraged PO hydration, salt intake. - could use midodrine if symptoms limiting to pt - has urinary retention, planned for catheter today squamous cell anal cancer - chemo and pain control per primary team, onc incarcerated hernia - GI and surgery following COPD - stable, manage per primary HIV - on HAART, ID following
--- NOTE | 2018-06-19 13:00 | PN ---
Physical Exam: SUBJECTIVE: Patient seen and examined, 2 days s/p 5-FU and Mitomycin for SCC Anal cancer. Still with some fluid overload today with swelling in the extremities. Urinary retention on bladder scan. No diarrhea, still with poor appetite ate some pudding and Ensure. OBJECTIVE: Vital Signs Period Temp Pulse Resp BP Sys/Wade Pulse Ox Last 24 Hr 97.9 F-99.1 F 98-123 18-20 88-112/56-67 95-96 GENERAL: The patient is awake, alert, and fully oriented, in no acute distress. HEAD: Normal with no signs of trauma. EYES: PERRL, extraocular movements intact, sclera anicteric, conjunctiva clear. No ptosis. ENT: Ears normal, nares patent, oropharynx clear without exudates, moist mucous membranes. NECK: Trachea midline, full range of motion, supple. LUNGS: Expiratory wheeze, no crackles, no accessory muscle use. HEART: Regular rate and rhythm, S1, S2 without murmur, rub or gallop. ABDOMEN: +Abdominal binder EXTREMITIES: Non-pitting edema to b/l legs, 2+ pulses, warm, well-perfused, NEUROLOGICAL: No facial droop, normal speech, slow, steady gate PSYCH: Normal mood, normal affect. SKIN: Warm, dry, no rashes or lesions noted Laboratory Results - last 24 hr 06/19/18 06/19/18 06:59 06:59 WBC 2.3 L RBC 2.90 L Hgb 9.8 L Hct 30.0 L MCV 103.3 H MCH 33.8 H MCHC 32.8 RDW 17.3 H Plt Count 86 L MPV 9.3 Sodium 141 Potassium 3.4 L Chloride 110 H Carbon Dioxide 24 Anion Gap 7 L BUN 6 L Creatinine 0.7 Creat Clearance w eGFR > 60 Random Glucose 81 Calcium 7.0 L Magnesium 1.9 Active Medications Generic Name Dose Route Start Last Admin Trade Name Freq PRN Reason Stop Dose Admin Acetaminophen 325 mg 06/13/18 17:05 06/15/18 15:27 Tylenol - PO 325 mg Q8H PRN Administration PAIN LEVEL 6-10 Albuterol/Ipratropium 1 amp 06/13/18 18:27 06/18/18 14:49 Duoneb - NEB 1 amp Q6H PRN Administration SHORTNESS OF BREATH Clonazepam 0.25 mg 06/13/18 16:53 06/18/18 15:19 Klonopin - PO 0.25 mg BID PRN Administration ANXIETY Cyclobenzaprine HCl 5 mg 06/18/18 11:44 Flexeril - PO Q8H PRN MUSCLE SPASMS Emollient Ointment 1 applic 06/15/18 22:00 06/19/18 09:53 Aquaphor - TP 1 applic BID TERRENCE Administration IV Flush 10 ml 06/15/18 11:04 06/17/18 06:00 Luisa-Cath Flush IVPUSH 10 ml PRN PRN Administration FLUSH IV Flush 10 ml 06/16/18 00:22 Luisa-Cath Flush IVPUSH PRN PRN protocol, maintain patency IV Flush 10 ml 06/19/18 10:56 Luisa-Cath Flush IVPUSH PRN PRN FLUSH Loperamide HCl 2 mg 06/19/18 10:33 Imodium - PO Q8H PRN DIARRHEA Multivitamins/Minerals/Vitamin C 1 tab 06/14/18 10:00 06/19/18 09:53 Tab-A-Vit - PO 1 tab DAILY TERRENCE Administration Non-Formulary Medication 1 each 06/14/18 16:00 06/19/18 09:53 Abacavir/Dolutegravir/Lamivudi [Triumeq Tablet] PO 1 each DAILY TERRENCE Administration Ondansetron HCl 8 mg 06/13/18 14:52 06/18/18 11:29 Zofran Injection IVPB 8 mg Q6H PRN Administration NAUSEA AND/OR VOMITING Oxycodone HCl 10 mg 06/13/18 17:05 06/19/18 12:40 Roxicodone - PO 10 mg Q8H PRN Administration PAIN LEVEL 6-10 Simethicone 80 mg 06/15/18 11:06 06/15/18 13:28 Mylicon - PO 80 mg Q4H PRN Administration GAS Tiotropium [place] 2 puff 06/16/18 10:15 06/19/18 09:53 Spiriva Respimat IH 2 puff DAILY TERRENCE Administration Valacyclovir HCl 500 mg 06/14/18 16:15 06/19/18 09:53 Valtrex - PO 500 mg DAILY TERRENCE Administration ASSESSMENT/PLAN: 62 year-old female on the medicine service for chemotherapy as she has too many comorbidities to manage as an outpatient. 2 days s/p 5-FU and mitomycin. Squamous cell anal cancer -Colonoscopy 01/14/18 that revealed the anal cancer and retained stool in the cecum -2 days s/p 5-FU via right subclavian mediport -Pancytopenia -Neulasta early next week as per oncology -Tolerated chemo; no evident toxicity at this juncture but will continue to monitor. -Oxycodone 10 mg for pain -Encourage PO intake -OOB ambulation, PT following -Monitor daily labs -Followed by oncologist Dr. Serrano Newly incarcerated symptomatic supraumbilical hernia -CT scan with IV contrast that showed wall thickening of the cecum, ascending colon and small bowel -Pain improved -Hernia re-reduced by surgeon Dr. Shepherd yesterday -Abdominal binder until surgery -Will consider minimally invasive operative repair once she recovers from chemo Urinary retention -550 ml on bladder scan -straight cathed -Monitor I&Os Hypotension -Normal EF on echo -88/57 today -Will start Midodrine 2.5 mg q 8 hrs per cardiology -Seen by human resources generalist Dr. Jimenes today -Encourage PO fluids and salt intake -Monitor BP Diarrhea -Likely secondary to chemo -No episodes today -Seen by GI Dr. Quinn -Stool cultures negative -Immodium PRN Hypomagnesemia -Resolved, 1.6 -> 1.9 today -Likely secondary to diarrhea -Mg 2 mg IV given yesterday -Continue to monitor COPD -Wheezing today, on room air -Spiriva -Duonebs PRN HIV -On [place] Triumeq -Valtrex 500 mg daily -Contact isolation d/t ESBL ecoli UTI -Followed by Dr. Herndon Anxiety -Klonopin 0.25 mg BID PRN FEN -PO intake -Replete electrolytes as needed -Regular diet and Ensure TID Prophylaxis GI: Protonix DVT SCDs and PT -No chemical prophylaxs d/t decreased platelets. FULL CODE Visit type - Emergency Visit Emergency Visit: No - New Patient This patient is new to me today: No - Critical Care Critical Care patient: No
[2018-06-19] MEDS: MIDODRINE HCL 2.5 MG TABLET PO SCH (17:34)
[2018-06-19] MEDS: CYCLOBENZAPRINE HCL 10 MG TABLET (FP) PO PRN (18:49)
--- NOTE | 2018-06-19 19:03 | EKG ---
Test Reason : Blood Pressure : / mmHG Vent. Rate : 101 BPM Atrial Rate : 101 BPM P-R Int : 164 ms QRS Dur : 094 ms QT Int : 366 ms P-R-T Axes : 044 -64 079 degrees QTc Int : 474 ms SINUS TACHYCARDIA LEFT ANTERIOR FASCICULAR BLOCK ABNORMAL ECG WHEN COMPARED WITH ECG OF 01-MAR-2018 15:39, VENT. RATE HAS INCREASED BY 36 BPM T WAVE VARIATION Confirmed by JOSE ENRIQUE GRAHAM, MARILEE ([id number]) on 06/19/2018 7:02:56 PM Referred By: Daryl ACOSTA Confirmed By:MARILEE QUISPE MD
[2018-06-19 19:46] LABS: URINE APPEARANCE CLEAR; URINE BILIRUBIN NEGATIVE (<2.0 mg/dL); URINE COLOR YELLOW; URINE GLUCOSE (UA) NEGATIVE (NEGATIVE); URINE KETONE NEGATIVE (NEGATIVE); URINE LEUK ESTERASE 1+ (NEGATIVE); URINE NITRITE NEGATIVE (NEGATIVE); URINE PROTEIN 1+ (NEGATIVE); URINE UROBILINOGEN NEGATIVE mg/dL (0.2-1.0)
[2018-06-19 19:48] LABS: EPI CELLS RARE /HPF (FEW); URINE MUCUS RARE
[2018-06-19] MEDS: ACETAMINOPHEN 325 MG TABLET (FP) PO PRN (22:03)
[2018-06-20] MEDS: ACETAMINOPHEN 325 MG TABLET (FP) PO PRN ×3 (06:09→21:20)
[2018-06-20] MEDS: oxyCODONE HCL 5 MG TABLET PO PRN ×3 (06:09→21:21)
[2018-06-20 06:18] LABS: HEMATOCRIT 28.6 % (32.4-45.2); HEMOGLOBIN 9.6 GM/dL (10.7-15.3); MCH 34.2 pg (25.7-33.7); MCHC 33.4 g/dl (32.0-36.0); MEAN CELL VOLUME 102.6 fl (80-96); MEAN PLT VOLUME 8.6 fl (7.5-11.1); PLATELET COUNT 84 K/MM3 (134-434); RBC 2.79 M/mm3 (3.60-5.2); RDW 16.9 % (11.6-15.6); WHITE BLOOD COUNT 2.5 K/mm3 (4.0-10.0)
[2018-06-20 08:17] LABS: ANION GAP 7 MMOL/L (8-16); BLOOD UREA NITROGEN 6 mg/dL (7-18); CHLORIDE 109 mmol/L (98-107); CO2 24 mmol/L (21-32); CREATININE 0.6 mg/dL (0.55-1.3); GLUCOSE,RANDOM 82 mg/dL (74-106); MAGNESIUM 1.7 mg/dL (1.8-2.4); POTASSIUM 3.3 mmol/L (3.5-5.1); SODIUM 140 mmol/L (136-145)
[2018-06-20 08:26] LABS: CALCIUM 6.9 mg/dL (8.5-10.1)
[2018-06-20] MEDS ORDERED: PT OWN MED DRAWER 7, Y5N ONE ×2 (09:40→12:22)
[2018-06-20] MEDS: TIOTROPIUM BROMIDE 2.5 MCG (SPIRIVA) RESPIMAT INHALER IH SCH (10:06)
[2018-06-20] MEDS: MIDODRINE HCL 2.5 MG TABLET PO SCH ×2 (10:07→18:07)
[2018-06-20] MEDS: MULTIVITAMINS (DAILY MVI) TABLET (FP) PO SCH (10:07)
[2018-06-20] MEDS: valACYclovir HCL 500 MG TABLET (FP) PO SCH (10:07)
[2018-06-20] MEDS: MINERAL OIL/PET HY-PHL TOPICAL OINTMENT 454 GM JAR TP SCH ×2 (10:07→21:25)
[2018-06-20] MEDS: POTASSIUM CHLORIDE TABS 10 MEQ TABLET.ER (FP) PO SCH (11:32)
[2018-06-20] MEDS: CYCLOBENZAPRINE HCL 10 MG TABLET (FP) PO PRN ×2 (13:29→21:24)
--- NOTE | 2018-06-20 15:45 | PN ---
Progress Note (short form) - Note Progress Note: Patient seen and examined at bedside abdominal pain about 2/10 eating better Vital Signs Temperature 98.5 F 06/20/18 13:52 Pulse Rate 102 H 06/20/18 13:52 Respiratory Rate 20 06/20/18 13:52 Blood Pressure 100/59 L 06/20/18 13:52 O2 Sat by Pulse Oximetry (%) 100 06/20/18 09:00 PE: Tired appearing thin NAD Tachycardic no murmur CTAB Soft non tender to palpation. Abdominal binder in place bilateral lower extremity 1+ pitting Edema Laboratory Last Values 06/20/18 06/20/18 05:55 05:55 WBC 2.5 L RBC 2.79 L Hgb 9.6 L Hct 28.6 L MCV 102.6 H MCHC 33.4 RDW 16.9 H Plt Count 84 L Sodium 140 Potassium 3.3 L Chloride 109 H Carbon Dioxide 24 Anion Gap 7 L BUN 6 L Creatinine 0.6 06/19/18 18:45 Urine Culture - Pending Urine - Urine Reyes 06/16/18 12:50 Salmonella/Shigella Culture - Final Stool NO GROWTH OF SALMONELLA OR SHIGELLA SPECIES OBTAINED Campylobacter Culture - Final NO GROWTH OF CAMPYLOBACTER SPECIES OBTAINED Yersinia Culture - Final NO GROWTH OF YERSINIA SPECIES OBTAINED Vibrio Culture - Final NO GROWTH OF VIBRIO SPECIES OBTAINED Escherichia coli 0157 Culture - Final NO GROWTH OF E COLI 0157 OBTAINED 06/16/18 12:50 Clostridium difficile Antigen (JENNIFER) - Final Stool Clostridium difficile Toxin Assay - Final Problem List: Anal Cancer HIV Hepatitis B Hepatitis C COPD Sarcoidosis of Lung Liver Cirrhosis possible incarcerated vs strangulated hernia urinary retention Pancytopenia Plan: Patient completed chemotherapy 5FU and mitomycin Patient will need to have Neulasta arranged before discharge if not going home will give granix today Antiemetics pain control Patient needs inpatient monitoring while getting chemotherapy due to comorbidities, medical history, and current medical status. appreciate medical care by hospitalist team
--- NOTE | 2018-06-20 16:20 | PN ---
Progress Note (short form) - Note Progress Note: s:no chest pain, palps, dyspnea, dizziness. Current Medications Acetaminophen (Tylenol -) 325 mg PO Q8H PRN PRN Reason: PAIN LEVEL 6-10 Last Admin: 06/20/18 13:31 Dose: 325 mg Albuterol/Ipratropium (Duoneb -) 1 amp NEB Q6H PRN PRN Reason: SHORTNESS OF BREATH Last Admin: 06/18/18 14:49 Dose: 1 amp Clonazepam (Klonopin -) 0.25 mg PO BID PRN PRN Reason: ANXIETY Last Admin: 06/18/18 15:19 Dose: 0.25 mg Cyclobenzaprine HCl (Flexeril -) 5 mg PO Q8H PRN PRN Reason: MUSCLE SPASMS Last Admin: 06/20/18 13:29 Dose: 5 mg Emollient Ointment (Aquaphor -) 1 applic TP BID TERRENCE Last Admin: 06/20/18 10:07 Dose: 1 applic IV Flush (Luisa-Cath Flush) 10 ml IVPUSH PRN PRN PRN Reason: FLUSH Last Admin: 06/17/18 06:00 Dose: 10 ml IV Flush (Luisa-Cath Flush) 10 ml IVPUSH PRN PRN PRN Reason: protocol, maintain patency IV Flush (Luisa-Cath Flush) 10 ml IVPUSH PRN PRN PRN Reason: FLUSH Loperamide HCl (Imodium -) 2 mg PO Q8H PRN PRN Reason: DIARRHEA Midodrine (Proamatine -) 2.5 mg PO BID-MID [facility] Last Admin: 06/20/18 10:07 Dose: 2.5 mg Multivitamins/Minerals/Vitamin C (Tab-A-Vit -) 1 tab PO DAILY TERRENCE Last Admin: 06/20/18 10:07 Dose: 1 tab Non-Formulary Medication (Abacavir/Dolutegravir/Lamivudi [Triumeq Tablet]) 1 each PO DAILY TERRENCE Last Admin: 06/20/18 10:07 Dose: 1 each Ondansetron HCl (Zofran Injection) 8 mg IVPB Q6H PRN PRN Reason: NAUSEA AND/OR VOMITING Last Admin: 06/18/18 11:29 Dose: 8 mg Oxycodone HCl (Roxicodone -) 10 mg PO Q8H PRN PRN Reason: PAIN LEVEL 6-10 Last Admin: 06/20/18 13:30 Dose: 10 mg Potassium Chloride (K-Dur -) 20 meq PO DAILY [facility] Last Admin: 06/20/18 11:32 Dose: 20 meq Simethicone (Mylicon -) 80 mg PO Q4H PRN PRN Reason: GAS Last Admin: 06/15/18 13:28 Dose: 80 mg Tiotropium [place] (Spiriva Respimat) 2 puff IH DAILY [facility] Last Admin: 06/20/18 10:06 Dose: 2 puff Valacyclovir HCl (Valtrex -) 500 mg PO DAILY [facility] Last Admin: 06/20/18 10:07 Dose: 500 mg Vital Signs: Vital Signs Period Temp Pulse Resp BP Sys/Wade Pulse Ox Last 24 Hr 98.0 F-98.5 F 91-102 18-20 96-101/53-69 96-100 Constitutional: Yes: No Distress, Calm Eyes: Yes: Conjunctiva Clear Respiratory: mild bibasilar crackles, nl eff Gastrointestinal: Yes: Normal Bowel Sounds, Soft Cardiovascular: Yes: Regular Rate and Rhythm JVD: No Heart Sounds: Yes: S1, S2 Musculoskeletal: No: Back Pain Extremities: No: Cold, Cyanosis Edema: 1+ lower ext bilaterally Peripheral Pulses: 2+ Left Doralis Pedis, 2+ Right Dorsalis Pedis Integumentary: No: Jaundice diaphoresis Neurological: Yes: Alert, Oriented Assessment/Plan echo 06/2018: nl LV/RV, mild MR, mild TR Hypotension - nl EF on echo - pt reports chronically low bp - got ivfs but now developing some vol overload, IVF dc'ed - ortho vitals unremarkable here - appetite has been low with chemo. encouraged PO hydration, salt intake. 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
--- NOTE | 2018-06-20 17:03 | PN ---
Physical Exam: SUBJECTIVE: Patient seen and examined, 3 days s/p 5-FU and Mitomycin for SCC Anal cancer. Still with some fluid overload today with swelling in the extremities. BP better today, hypokalemic, Urinary retention on bladder scan. No diarrhea, eating small amounts of food. OBJECTIVE: Vital Signs Period Temp Pulse Resp BP Sys/Wade Pulse Ox Last 24 Hr 98.0 F-98.5 F 91-102 18-20 96-101/53-69 96-100 GENERAL: The patient is awake, alert, and fully oriented, in no acute distress. HEAD: Normal with no signs of trauma. EYES: PERRL, extraocular movements intact, sclera anicteric, conjunctiva clear. No ptosis. ENT: Ears normal, nares patent, oropharynx clear without exudates, moist mucous membranes. NECK: Trachea midline, full range of motion, supple. LUNGS: Expiratory wheeze, no crackles, no accessory muscle use. HEART: Regular rate and rhythm, S1, S2 without murmur, rub or gallop. ABDOMEN: +Abdominal binder, distended slightly TTP : +Castro draining clear yellow urine EXTREMITIES: Non-pitting edema to b/l legs, 2+ pulses, warm, well-perfused, NEUROLOGICAL: No facial droop, normal speech, slow, steady gate PSYCH: Normal mood, normal affect. SKIN: Warm, dry, no rashes or lesions noted Laboratory Results - last 24 hr 06/19/18 06/20/18 06/20/18 18:45 05:55 05:55 WBC 2.5 L RBC 2.79 L Hgb 9.6 L Hct 28.6 L MCV 102.6 H MCH 34.2 H MCHC 33.4 RDW 16.9 H Plt Count 84 L MPV 8.6 Sodium 140 Potassium 3.3 L Chloride 109 H Carbon Dioxide 24 Anion Gap 7 L BUN 6 L Creatinine 0.6 Creat Clearance w eGFR > 60 Random Glucose 82 Calcium 6.9 L* Magnesium 1.7 L Urine Color Yellow Urine Appearance Clear Urine pH 5.0 Ur Specific Berry 1.060 H Urine Protein 1+ H Urine Glucose (UA) Negative Urine Ketones Negative Urine Blood Negative Urine Nitrite Negative Urine Bilirubin Negative Urine Urobilinogen Negative Ur Leukocyte Esterase 1+ H Urine WBC (Auto) 30 Urine RBC (Auto) 6 Ur Epithelial Cells Rare Urine Mucus Rare Active Medications Generic Name Dose Route Start Last Admin Trade Name Ketanq PRN Reason Stop Dose Admin Acetaminophen 325 mg 06/13/18 17:05 06/20/18 13:31 Tylenol - PO 325 mg Q8H PRN Administration PAIN LEVEL 6-10 Albuterol/Ipratropium 1 amp 06/13/18 18:27 06/18/18 14:49 Duoneb - NEB 1 amp Q6H PRN Administration SHORTNESS OF BREATH Clonazepam 0.25 mg 06/13/18 16:53 06/18/18 15:19 Klonopin - PO 0.25 mg BID PRN Administration ANXIETY Cyclobenzaprine HCl 5 mg 06/18/18 11:44 06/20/18 13:29 Flexeril - PO 5 mg Q8H PRN Administration MUSCLE SPASMS Emollient Ointment 1 applic 06/15/18 22:00 06/20/18 10:07 Aquaphor - TP 1 applic BID TERRENCE Administration IV Flush 10 ml 06/15/18 11:04 06/17/18 06:00 Luisa-Cath Flush IVPUSH 10 ml PRN PRN Administration FLUSH IV Flush 10 ml 06/16/18 00:22 Luisa-Cath Flush IVPUSH PRN PRN protocol, maintain patency IV Flush 10 ml 06/19/18 10:56 Luisa-Cath Flush IVPUSH PRN PRN FLUSH Loperamide HCl 2 mg 06/19/18 10:33 Imodium - PO Q8H PRN DIARRHEA Midodrine 2.5 mg 06/19/18 18:00 06/20/18 10:07 Proamatine - PO 2.5 mg BID-MID TERRENCE Administration Multivitamins/Minerals/Vitamin C 1 tab 06/14/18 10:00 06/20/18 10:07 Tab-A-Vit - PO 1 tab DAILY TERRENCE Administration Non-Formulary Medication 1 each 06/14/18 16:00 06/20/18 10:07 Abacavir/Dolutegravir/Lamivudi [Triumeq Tablet] PO 1 each DAILY TERRENCE Administration Ondansetron HCl 8 mg 06/13/18 14:52 06/18/18 11:29 Zofran Injection IVPB 8 mg Q6H PRN Administration NAUSEA AND/OR VOMITING Oxycodone HCl 10 mg 06/13/18 17:05 06/20/18 13:30 Roxicodone - PO 10 mg Q8H PRN Administration PAIN LEVEL 6-10 Potassium Chloride 20 meq 06/20/18 10:45 06/20/18 11:32 K-Dur - PO 20 meq DAILY TERRENCE Administration Simethicone 80 mg 06/15/18 11:06 06/15/18 13:28 Mylicon - PO 80 mg Q4H PRN Administration GAS Tbo-Filgrastim 480 mcg 06/20/18 16:30 Granix - SQ DAILY TERRENCE Tiotropium [place] 2 puff 06/16/18 10:15 06/20/18 10:06 Spiriva Respimat IH 2 puff DAILY TERRENCE Administration Valacyclovir HCl 500 mg 06/14/18 16:15 06/20/18 10:07 Valtrex - PO 500 mg DAILY TERRENCE Administration ASSESSMENT/PLAN: 62 year-old female on the medicine service for chemotherapy as she has too many comorbidities to manage as an outpatient. 2 days s/p 5-FU and mitomycin. Squamous cell anal cancer -Colonoscopy 01/14/18 that revealed the anal cancer and retained stool in the cecum -2 days s/p 5-FU via right subclavian mediport -Pancytopenia -Neulasta early next week as per oncology -Given Granix 480 mcg today -Tolerated chemo; no evident toxicity at this juncture but will continue to monitor. -Oxycodone 10 mg for pain -Encourage PO intake -OOB ambulation, PT following -Monitor daily labs -Followed by oncologist Dr. Serrano Newly incarcerated symptomatic supraumbilical hernia -CT scan with IV contrast that showed wall thickening of the cecum, ascending colon and small bowel -Pain improved -Hernia re-reduced by surgeon Dr. Shepherd yesterday -Abdominal binder until surgery -Will consider minimally invasive operative repair once she recovers from chemo Urinary retention -550 ml on bladder scan -castro placed -Monitor I&Os -Urinary consult ordered Hypotension -Normal EF on echo -Improved since starting Midodrine 2.5 mg q 8 hrs per cardiology -Seen by adjusto writer operator Dr. Jimenes -Encourage PO fluids and salt intake -Monitor BP Diarrhea -Likely secondary to chemo -No episodes today -Seen by GI Dr. Quinn -Stool cultures negative -Immodium PRN Hypokalemia - 3.4 -> 3.3 - Give KCl 20 meq x 1 then daily - Monitor BMP Hypocalcemia - 6.9, corrected 8.5 Hypomagnesemia -Resolved, 1.6 -> 1.9 -> 1.7 today -Likely secondary to diarrhea -Continue to monitor COPD -Stable -Spiriva -Duonebs PRN HIV -On [place] Triumeq -Valtrex 500 mg daily -Contact isolation d/t ESBL ecoli UTI -Followed by Dr. Herndon Anxiety -Klonopin 0.25 mg BID PRN FEN -PO intake -Replete electrolytes as needed -Regular diet and Ensure TID Prophylaxis GI: Protonix DVT SCDs and PT -No chemical prophylaxs d/t decreased platelets. FULL CODE Visit type - Emergency Visit Emergency Visit: No - New Patient This patient is new to me today: No - Critical Care Critical Care patient: No
--- NOTE | 2018-06-20 17:28 | PN ---
Progress Note (short form) - Note Progress Note: diarrhea resolved, had urinary retention and castro placed abdominal pain less Vital Signs Period Temp Pulse Resp BP Sys/Wade Pulse Ox Last 24 Hr 98.0 F-98.5 F 91-102 18-20 96-101/53-69 96-100 cor-rrr lungs decreased bs at bases abd softer, less tender ext +edema +castro labs pending Microbiology 06/16/18 12:50 Stool Salmonella/Shigella Culture - Final NO GROWTH OF SALMONELLA OR SHIGELLA SPECIES OBTAINED 06/16/18 12:50 Stool Campylobacter Culture - Final NO GROWTH OF CAMPYLOBACTER SPECIES OBTAINED 06/16/18 12:50 Stool Yersinia Culture - Final NO GROWTH OF YERSINIA SPECIES OBTAINED 06/16/18 12:50 Stool Vibrio Culture - Final NO GROWTH OF VIBRIO SPECIES OBTAINED 06/16/18 12:50 Stool Escherichia coli 0157 Culture - Final NO GROWTH OF E COLI 0157 OBTAINED 06/16/18 12:50 Stool Clostridium difficile Antigen (JENNIFER) - Final 06/16/18 12:50 Stool Clostridium difficile Toxin Assay - Final a/p urinary retention-now with castro abdominal pain- umbilical hernia- reduced at bedside, f/u surgery reports less pain continue with binder hypotension-now on midodrine, IVF d/ra diarrhea- secondary to chemo= cdiff and cultures are negative-resolved anal cancer completed chemo chemo per oncology HIV- continue art, continue valtrex contact isolation- history esbl ecoli UTI Problem List - Problems (1) Anal cancer Code(s): C21.0 - MALIGNANT NEOPLASM OF ANUS, UNSPECIFIED (2) HIV (human immunodeficiency virus infection) Code(s): Z21 - ASYMPTOMATIC HUMAN IMMUNODEFICIENCY VIRUS INFECTION STATUS
[2018-06-20 17:29] LABS: HEMATOCRIT 30.5 % (32.4-45.2); HEMOGLOBIN 10.4 GM/dL (10.7-15.3); MCH 34.8 pg (25.7-33.7); MCHC 34.1 g/dl (32.0-36.0); MEAN CELL VOLUME 102.2 fl (80-96); MEAN PLT VOLUME 10.1 fl (7.5-11.1); PLATELET COUNT 102 K/MM3 (134-434); RBC 2.98 M/mm3 (3.60-5.2); RDW 16.8 % (11.6-15.6); WHITE BLOOD COUNT 2.7 K/mm3 (4.0-10.0)
[2018-06-20] MEDS: TBO-FILGRASTIM 480 MCG/0.8 ML DISP.SYRIN SQ SCH (18:07)
--- NOTE | 2018-06-20 22:01 | PN ---
Progress Note (short form) - Note Progress Note: Patient seen and examined No diarrhea c/o dysuria despite castro AFVSS Cor: RSR, No murmurs, No gallops Lungs: Clear to P&A Abd: abdominal binder present Ext:No significant edema Labs/meds reviewed A/P Anal Cancer HIV Hepatitis B Hepatitis C COPD Sarcoidosis of Lung HCC Liver Cirrhosis start neupogen check urine culture abdominal hernia --has a binder
[2018-06-21] MEDS: ACETAMINOPHEN 325 MG TABLET (FP) PO PRN ×3 (04:36→20:21)
[2018-06-21] MEDS: CYCLOBENZAPRINE HCL 10 MG TABLET (FP) PO PRN (04:37)
[2018-06-21] MEDS: oxyCODONE HCL 5 MG TABLET PO PRN ×3 (04:37→20:22)
[2018-06-21 08:04] LABS: ANION GAP 8 MMOL/L (8-16); BLOOD UREA NITROGEN 7 mg/dL (7-18); CALCIUM 7.5 mg/dL (8.5-10.1); CHLORIDE 106 mmol/L (98-107); CO2 23 mmol/L (21-32); CREATININE 0.7 mg/dL (0.55-1.3); GLUCOSE,RANDOM 77 mg/dL (74-106); MAGNESIUM 1.9 mg/dL (1.8-2.4); POTASSIUM 3.6 mmol/L (3.5-5.1); SODIUM 138 mmol/L (136-145)
[2018-06-21] MEDS ORDERED: PT OWN MED DRAWER 7, Y5N ONE ×2 (10:21→15:57)
[2018-06-21 10:23] LABS: HEMATOCRIT 29.8 % (32.4-45.2); HEMOGLOBIN 9.9 GM/dL (10.7-15.3); MCH 34.3 pg (25.7-33.7); MCHC 33.2 g/dl (32.0-36.0); MEAN CELL VOLUME 103.1 fl (80-96); MEAN PLT VOLUME 8.6 fl (7.5-11.1); PLATELET COUNT 81 K/MM3 (134-434); RBC 2.89 M/mm3 (3.60-5.2); RDW 17.1 % (11.6-15.6); WHITE BLOOD COUNT 7.7 K/mm3 (4.0-10.0)
[2018-06-21] MEDS: MIDODRINE HCL 2.5 MG TABLET PO SCH (10:27)
[2018-06-21] MEDS: MULTIVITAMINS (DAILY MVI) TABLET (FP) PO SCH (10:27)
[2018-06-21] MEDS: valACYclovir HCL 500 MG TABLET (FP) PO SCH (10:27)
[2018-06-21] MEDS: POTASSIUM CHLORIDE TABS 10 MEQ TABLET.ER (FP) PO SCH (10:27)
[2018-06-21] MEDS: MINERAL OIL/PET HY-PHL TOPICAL OINTMENT 454 GM JAR TP SCH ×2 (10:29→21:42)
[2018-06-21] MEDS: TIOTROPIUM BROMIDE 2.5 MCG (SPIRIVA) RESPIMAT INHALER IH SCH (10:34)
[2018-06-21] MEDS ORDERED: clonazePAM 0.5 MG TABLET PO PRN (11:38)
--- NOTE | 2018-06-21 11:42 | PN ---
Progress Note (short form) - Note Progress Note: Patient seen and examined at bedside Complains of lower extremity edema Ate oatmeal this AM UCx positive for GNR-lactose fermenting Vital Signs Temperature 98.6 F 06/21/18 06:00 Pulse Rate 119 H 06/21/18 06:00 Respiratory Rate 18 06/21/18 06:00 Blood Pressure 99/54 L 06/21/18 06:00 O2 Sat by Pulse Oximetry (%) 100 06/20/18 22:00 PE thin NAD AAOx3 Tachycardic no murmur CTAB Soft non tender to palpation. Abdominal binder in place bilateral lower extremity 1+ pitting Edema 06/20/18 06/20/18 06/21/18 16:30 16:30 06:25 WBC 2.7 L RBC 2.98 L Hgb 10.4 L Hct 30.5 L MCV 102.2 H MCHC 34.1 RDW 16.8 H Plt Count 102 L D Sodium 138 Potassium 3.4 L 3.6 Chloride 106 Carbon Dioxide 23 Anion Gap 8 BUN 7 Creatinine 0.7 06/21/18 10:00 WBC 7.7 RBC 2.89 L Hgb 9.9 L Hct 29.8 L MCV 103.1 H MCHC 33.2 RDW 17.1 H Plt Count 81 L D Sodium Potassium Chloride Carbon Dioxide Anion Gap BUN Creatinine 06/19/18 18:45 Urine Culture - Preliminary Urine - Urine Reyes Lactose Fermenting Neg Bacilli 06/16/18 12:50 Salmonella/Shigella Culture - Final Stool NO GROWTH OF SALMONELLA OR SHIGELLA SPECIES OBTAINED Campylobacter Culture - Final NO GROWTH OF CAMPYLOBACTER SPECIES OBTAINED Yersinia Culture - Final NO GROWTH OF YERSINIA SPECIES OBTAINED Vibrio Culture - Final NO GROWTH OF VIBRIO SPECIES OBTAINED Escherichia coli 0157 Culture - Final NO GROWTH OF E COLI 0157 OBTAINED 06/16/18 12:50 Clostridium difficile Antigen (JENNIFER) - Final Stool Clostridium difficile Toxin Assay - Final Problem List: Anal Cancer HIV Hepatitis B Hepatitis C COPD Sarcoidosis of Lung Liver Cirrhosis possible incarcerated vs strangulated hernia urinary retention Pancytopenia UTI Plan: Patient completed chemotherapy 5FU and mitomycin UCx positive for lactose fermenting GNR. History of Klebsiella ESBL-will start on ertapenem 1gm daily. discussed with Dr. Herndon. Send BCx before Abx started Granix yesterday WBC up to 7.7 today Antiemetics pain control Patient needs inpatient monitoring while getting chemotherapy due to comorbidities, medical history, and current medical status. appreciate medical care by hospitalist team
[2018-06-21] MEDS ORDERED: ERTAPENEM SODIUM 1 GM/50 ML PRE-DOCKED IVPB SCH (11:45)
--- NOTE | 2018-06-21 12:16 | PN ---
Progress Note (short form) - Note Progress Note: s:no chest pain, palps, dyspnea. occasionally gets dizzy when stands up Current Medications Generic Name Dose Route Start Last Admin Trade Name Helen PRN Reason Stop Dose Admin Acetaminophen 325 mg 06/13/18 17:05 06/21/18 04:36 Tylenol - PO 325 mg Q8H PRN Administration PAIN LEVEL 6-10 Albuterol/Ipratropium 1 amp 06/13/18 18:27 06/18/18 14:49 Duoneb - NEB 1 amp Q6H PRN Administration SHORTNESS OF BREATH Clonazepam 0.25 mg 06/21/18 11:38 Klonopin - PO BID PRN ANXIETY Cyclobenzaprine HCl 5 mg 06/18/18 11:44 06/21/18 04:37 Flexeril - PO 5 mg Q8H PRN Administration MUSCLE SPASMS Emollient Ointment 1 applic 06/15/18 22:00 06/21/18 10:29 Aquaphor - TP 1 applic BID TERRENCE Administration IV Flush 10 ml 06/15/18 11:04 06/17/18 06:00 Luisa-Cath Flush IVPUSH 10 ml PRN PRN Administration FLUSH IV Flush 10 ml 06/16/18 00:22 Luisa-Cath Flush IVPUSH PRN PRN protocol, maintain patency IV Flush 10 ml 06/19/18 10:56 Luisa-Cath Flush IVPUSH PRN PRN FLUSH Ertapenem 1 gm/ Sodium 50 mls @ 100 mls/hr 06/21/18 12:00 Chloride IVPB DAILY TERRENCE Loperamide HCl 2 mg 06/19/18 10:33 Imodium - PO Q8H PRN DIARRHEA Multivitamins/Minerals/Vitamin C 1 tab 06/14/18 10:00 06/21/18 10:27 Tab-A-Vit - PO 1 tab DAILY TERRENCE Administration Non-Formulary Medication 1 each 06/14/18 16:00 06/21/18 10:27 Abacavir/Dolutegravir/Lamivudi [Triumeq Tablet] PO 1 each DAILY T[facility] Administration Ondansetron HCl 8 mg 06/13/18 14:52 06/18/18 11:29 Zofran Injection IVPB 8 mg Q6H PRN Administration NAUSEA AND/OR VOMITING Oxycodone HCl 10 mg 06/21/18 11:39 Roxicodone - PO Q8H PRN PAIN LEVEL 6-10 Potassium Chloride 20 meq 06/20/18 10:45 06/21/18 10:27 K-Dur - PO 20 meq DAILY TERRENCE Administration Simethicone 80 mg 06/15/18 11:06 06/15/18 13:28 Mylicon - PO 80 mg Q4H PRN Administration GAS Tbo-Filgrastim 480 mcg 06/20/18 16:30 06/20/18 18:07 Granix - SQ 480 mcg DAILY TERRENCE Administration Tiotropium [place] 2 puff 06/16/18 10:15 06/21/18 10:34 Spiriva Respimat IH 2 puff DAILY TERRENCE Administration Valacyclovir HCl 500 mg 06/14/18 16:15 06/21/18 10:27 Valtrex - PO 500 mg DAILY TERRENCE Administration Vital Signs: Vital Signs Period Temp Pulse Resp BP Sys/Wade Pulse Ox Last 24 Hr 97.9 F-98.6 F 100-119 18-20 98-102/54-63 100 Constitutional: Yes: No Distress, Calm Eyes: Yes: Conjunctiva Clear Respiratory: mild bibasilar crackles, nl eff Gastrointestinal: Yes: Normal Bowel Sounds, Soft Cardiovascular: Yes: Regular Rate and Rhythm JVD: No Heart Sounds: Yes: S1, S2 Musculoskeletal: No: Back Pain Extremities: No: Cold, Cyanosis Edema: trace le edema bl Peripheral Pulses: 2+ Left Doralis Pedis, 2+ Right Dorsalis Pedis Integumentary: No: Jaundice diaphoresis Neurological: Yes: Alert, Oriented CBC, BMP 06/21/18 10:00 06/21/18 06:25 Assessment/Plan echo 06/2018: nl LV/RV, mild MR, mild TR Hypotension - nl EF on echo - pt reports chronically low bp - got ivfs but then with some vol overload so dc ivfs 06/18 - ortho vitals unremarkable here - appetite has been low with chemo. encouraged PO hydration, salt intake. 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
[2018-06-21] MEDS ORDERED: DOCUSATE SODIUM 100 MG CAPSULE (FP) PO PRN (12:58)
[2018-06-21] MEDS ORDERED: FENTANYL PATCH WASTE TD PRN (12:58)
[2018-06-21] MEDS: ERTAPENEM SODIUM 1 GM in SODIUM CHLORIDE 50 ML IVPB SCH (12:59)
[2018-06-21] MEDS: MIDODRINE HCL 5 MG TABLET PO SCH ×2 (16:08→18:08)
[2018-06-21] MEDS: TBO-FILGRASTIM 480 MCG/0.8 ML DISP.SYRIN SQ SCH (16:11)
--- NOTE | 2018-06-21 17:04 | PN ---
Physical Exam: SUBJECTIVE: Patient seen and examined at the bedside. feeling teary and emotional today over hospitalization, not yet feeling well. not eating better and acute infection. reassured. emotional support provided. 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 Hypotensive today. Urinary retention, now with castro cath Vital Signs Period Temp Pulse Resp BP Sys/Wade Pulse Ox Last 24 Hr 97.9 F-98.6 F 100-119 18-20 85-102/54-63 100 GENERAL: Awake, alert, and fully oriented, in no acute distress. HEAD: Normal with no signs of trauma. EYES: Pupils equal, round and reactive to light, extraocular movements intact, sclera anicteric, conjunctiva clear. No lid lag. EARS, NOSE, THROAT: Ears normal, nares patent, oropharynx clear without exudates. Moist mucous membranes. NECK: Normal range of motion, supple without lymphadenopathy, JVD, or masses. LUNGS: Breath sounds equal, mild/faint wheezing on rul HEART: Regular rate and rhythm, normal S1 and S2 without murmur, rub or gallop. ABDOMEN: mildly distended, + bowel sounds-on abdominal binder for hernia UPPER EXTREMITIES: No clubbing. No peripheral edema. LOWER EXTREMITIES: No calf tenderness. No peripheral edema. NEUROLOGICAL: Normal speech. PSYCHIATRIC: Cooperative. Good eye contact. Appropriate mood and affect. SKIN: Warm, dry, normal turgor, no rashes or lesions noted, normal capillary refill. Laboratory Results - last 24 hr 06/20/18 06/20/18 06/21/18 16:30 16:30 06:25 WBC 2.7 L RBC 2.98 L Hgb 10.4 L Hct 30.5 L MCV 102.2 H MCH 34.8 H MCHC 34.1 RDW 16.8 H Plt Count 102 L D MPV 10.1 D Sodium 138 Potassium 3.4 L 3.6 Chloride 106 Carbon Dioxide 23 Anion Gap 8 BUN 7 Creatinine 0.7 Creat Clearance w eGFR > 60 Random Glucose 77 Calcium 7.5 L Magnesium 1.9 06/21/18 10:00 WBC 7.7 RBC 2.89 L Hgb 9.9 L Hct 29.8 L MCV 103.1 H MCH 34.3 H MCHC 33.2 RDW 17.1 H Plt Count 81 L D MPV 8.6 D Sodium Potassium Chloride Carbon Dioxide Anion Gap BUN Creatinine Creat Clearance w eGFR Random Glucose Calcium Magnesium Active Medications Generic Name Dose Route Start Last Admin Trade Name Freq PRN Reason Stop Dose Admin Acetaminophen 325 mg 06/13/18 17:05 06/21/18 12:59 Tylenol - PO 325 mg Q8H PRN Administration PAIN LEVEL 6-10 Albuterol/Ipratropium 1 amp 06/13/18 18:27 06/18/18 14:49 Duoneb - NEB 1 amp Q6H PRN Administration SHORTNESS OF BREATH Clonazepam 0.25 mg 06/21/18 11:38 Klonopin - PO BID PRN ANXIETY Cyclobenzaprine HCl 5 mg 06/18/18 11:44 06/21/18 04:37 Flexeril - PO 5 mg Q8H PRN Administration MUSCLE SPASMS Docusate Sodium 100 mg 06/21/18 12:58 Colace - PO Q8H PRN CONSTIPATION Emollient Ointment 1 applic 06/15/18 22:00 06/21/18 10:29 Aquaphor - TP 1 applic BID TERRENCE Administration Fentanyl 1 patch 06/21/18 13:00 Duragesic 12mcg Patch - TD 06/27/18 12:59 Q72H TERRENCE IV Flush 10 ml 06/15/18 11:04 06/17/18 06:00 Luisa-Cath Flush IVPUSH 10 ml PRN PRN Administration FLUSH IV Flush 10 ml 06/16/18 00:22 Luisa-Cath Flush IVPUSH PRN PRN protocol, maintain patency IV Flush 10 ml 06/19/18 10:56 Luisa-Cath Flush IVPUSH PRN PRN FLUSH Ertapenem 1 gm/ Sodium 50 mls @ 100 mls/hr 06/21/18 12:00 06/21/18 12:59 Chloride IVPB 100 mls/hr DAILY TERRENCE Administration Loperamide HCl 2 mg 06/19/18 10:33 Imodium - PO Q8H PRN DIARRHEA Midodrine 5 mg 06/21/18 14:00 06/21/18 16:08 Proamatine - PO 5 mg TID-MID TERRENCE Administration Miscellaneous 1 each 06/21/18 12:58 Duragesic Patch Waste TD PRN PRN PAIN Multivitamins/Minerals/Vitamin C 1 tab 06/14/18 10:00 06/21/18 10:27 Tab-A-Vit - PO 1 tab DAILY TERRENCE Administration Non-Formulary Medication 1 each 06/14/18 16:00 06/21/18 10:27 Abacavir/Dolutegravir/Lamivudi [Triumeq Tablet] PO 1 each DAILY TERRENCE Administration Ondansetron HCl 8 mg 06/13/18 14:52 06/18/18 11:29 Zofran Injection IVPB 8 mg Q6H PRN Administration NAUSEA AND/OR VOMITING Oxycodone HCl 10 mg 06/21/18 11:39 06/21/18 12:59 Roxicodone - PO 10 mg Q8H PRN Administration PAIN LEVEL 6-10 Potassium Chloride 20 meq 06/20/18 10:45 06/21/18 10:27 K-Dur - PO 20 meq DAILY TERRENCE Administration Simethicone 80 mg 06/15/18 11:06 06/15/18 13:28 Mylicon - PO 80 mg Q4H PRN Administration GAS Tbo-Filgrastim 480 mcg 06/20/18 16:30 06/21/18 16:11 Granix - SQ 480 mcg DAILY TERRENCE Administration Tiotropium [place] 2 puff 06/16/18 10:15 06/21/18 10:34 Spiriva Respimat IH 2 puff DAILY TERRENCE Administration Valacyclovir HCl 500 mg 06/14/18 16:15 06/21/18 10:27 Valtrex - PO 500 mg DAILY TERRENCE Administration ASSESSMENT/PLAN: Patient is a 63 year old female with a significant past medical history of Vivas' s Palsy, HIV+ (follows at the [facility]), COPD, sarcoidosis and squamous cell anal cancer. She is s/p chemotherapy and 28 cycles of RT. Patient admitted under the medicine service for chemotherapy as she has too many comorbidities to manage as an outpatient. Oncology: Squamous cell anal cancer/anal cancer s/p 5-FU via right subclavian mediport Patient on Granix 480mcg daily, wbc now stable @ 7.7 tolerated chemotherapy, being closely followed her oncologist Encourage PO hydration Monitor daily labs GI: Newly incarcerated symptomatic supraumbilical hernia CT scan with IV contrast that showed wall thickening of the cecum, ascending colon and small bowel Pain managed, on abdominal binder Hernia reduced by surgeon, Dr. Shepherd, can be considered for minimal invasive operative repair (3-4 weeks). Diarrhea. resolved. on Immodium prn. stool cultures negative. /ID Urinary retention Has castro in place for retention urine culture + for positive for lactose fermenting gnr prior hx of kleb esb. on contact precautions. started on ertapenem 1gm daily monitor intake and output Card: Hypotension On Midodrine 2.5 mg q 8 hrs per cardiology Encourage PO intake Electrolyte imbalance: Hypokalemia, resolved. k. 3.6 Hypocalcemia, 6.9, corrected 8.5 Hypomagnesemia, 1.9. monitor daily electrolytes. Pulm: COPD, history. not in exacerbation ID: HIV. on Haart therapy. followed by Dr. Herndon Psyche: Anxiety, chronic. On Klonopin bid prn fen po intake check electrolytes daily monitor nutrition. started on magic cup, on ensure. dietary following prophy SCDs Physical therapy Visit type - Emergency Visit Emergency Visit: Yes ED Registration Date: 06/13/18 Care time: The patient presented to the Emergency Department on the above date and was hospitalized for further evaluation of their emergent condition. - New Patient This patient is new to me today: No - Critical Care Critical Care patient: No - Discharge Referral Referred to [facility] Med P.C.: No
--- NOTE | 2018-06-21 17:55 | PN ---
Progress Note (short form) - Note Progress Note: diarrhea resolved, had urinary retention and castro placed notes dysuria abdominal pain much less today tachycardic Vital Signs Period Temp Pulse Resp BP Sys/Wade Pulse Ox Last 24 Hr 97.9 F-98.6 F 100-119 18-20 85-102/51-63 100 cor-rrr llungs decreased bs at bases abd soft,nt ext less edema +castro CBC, BMP 06/21/18 10:00 06/21/18 06:25 Microbiology 06/19/18 18:45 Urine - Urine Castro Urine Culture - Preliminary Lactose Fermenting Neg Bacilli 06/16/18 12:50 Stool Salmonella/Shigella Culture - Final NO GROWTH OF SALMONELLA OR SHIGELLA SPECIES OBTAINED 06/16/18 12:50 Stool Campylobacter Culture - Final NO GROWTH OF CAMPYLOBACTER SPECIES OBTAINED 06/16/18 12:50 Stool Yersinia Culture - Final NO GROWTH OF YERSINIA SPECIES OBTAINED 06/16/18 12:50 Stool Vibrio Culture - Final NO GROWTH OF VIBRIO SPECIES OBTAINED 06/16/18 12:50 Stool Escherichia coli 0157 Culture - Final NO GROWTH OF E COLI 0157 OBTAINED 06/16/18 12:50 Stool Clostridium difficile Antigen (JENNIFER) - Final 06/16/18 12:50 Stool Clostridium difficile Toxin Assay - Final a/p UTI- notes alot of suprpubic discomfort- blood cultures sent, started on ertapenem urinary retention-now with castro abdominal pain- umbilical hernia- reduced at bedside, f/u surgery reports less pain continue with binder hypotension-now on midodrine, IVF d/ra diarrhea- secondary to chemo= cdiff and cultures are negative-resolved anal cancer completed chemo chemo per oncology HIV- continue art, continue valtrex leukopenia resolved -s/p granix contact isolation- history esbl ecoli UTI Problem List - Problems (1) Anal cancer Code(s): C21.0 - MALIGNANT NEOPLASM OF ANUS, UNSPECIFIED (2) HIV (human immunodeficiency virus infection) Code(s): Z21 - ASYMPTOMATIC HUMAN IMMUNODEFICIENCY VIRUS INFECTION STATUS
[2018-06-21] MEDS: fentaNYL 12mcg/hr PATCH.TD72 TD SCH (18:07)
--- NOTE | 2018-06-21 19:41 | PN ---
Teaching Attending Note Name of Resident: Elmer Ji ATTENDING PHYSICIAN STATEMENT I saw and evaluated the patient. I reviewed the resident's note and discussed the case with the resident. I agree with the resident's findings and plan as documented. SUBJECTIVE: Patient seen and examined @ soft stools today No periumbilical pain Suprapubic pain Castro catheter - with urinary retention Last Vital Signs Temp Pulse Resp BP Pulse Ox 98 F 107 H 20 102/54 L 100 06/21/18 18:00 06/21/18 18:00 06/21/18 18:00 06/21/18 18:00 06/20/18 22:00 HEENT: DENNY, EOM Intact Oropharynx: No thrush, No mucositis, facial Cor: RSR, No murmurs, No gallops Lungs: scattered rhonchi , wheezes Abd: Soft, Normal bowel sounds, No organomegaly, distended; no periumbilical pain Ext:No significant edema Skin: No rashes, Integument intact 06/21/18 10:00 06/21/18 06:25 Current Medications Generic Name Dose Route Start Last Admin Trade Name Freq PRN Reason Stop Dose Admin Acetaminophen 325 mg 06/13/18 17:05 06/21/18 12:59 Tylenol - PO 325 mg Q8H PRN Administration PAIN LEVEL 6-10 Albuterol/Ipratropium 1 amp 06/13/18 18:27 06/18/18 14:49 Duoneb - NEB 1 amp Q6H PRN Administration SHORTNESS OF BREATH Clonazepam 0.25 mg 06/21/18 11:38 Klonopin - PO BID PRN ANXIETY Cyclobenzaprine HCl 5 mg 06/18/18 11:44 06/21/18 04:37 Flexeril - PO 5 mg Q8H PRN Administration MUSCLE SPASMS Docusate Sodium 100 mg 06/21/18 12:58 Colace - PO Q8H PRN CONSTIPATION Emollient Ointment 1 applic 06/15/18 22:00 06/21/18 10:29 Aquaphor - TP 1 applic BID TERRENCE Administration Fentanyl 1 patch 06/21/18 13:00 06/21/18 18:07 Duragesic 12mcg Patch - TD 06/27/18 12:59 1 patch Q72H TERRENCE Administration IV Flush 10 ml 06/15/18 11:04 06/17/18 06:00 Luisa-Cath Flush IVPUSH 10 ml PRN PRN Administration FLUSH IV Flush 10 ml 06/16/18 00:22 Luisa-Cath Flush IVPUSH PRN PRN protocol, maintain patency IV Flush 10 ml 06/19/18 10:56 Luisa-Cath Flush IVPUSH PRN PRN FLUSH Ertapenem 1 gm/ Sodium 50 mls @ 100 mls/hr 06/21/18 12:00 06/21/18 12:59 Chloride IVPB 100 mls/hr DAILY TERRENCE Administration Loperamide HCl 2 mg 06/19/18 10:33 Imodium - PO Q8H PRN DIARRHEA Midodrine 5 mg 06/21/18 14:00 06/21/18 18:08 Proamatine - PO 5 mg TID-MID TERRENCE Administration Miscellaneous 1 each 06/21/18 12:58 Duragesic Patch Waste TD PRN PRN PAIN Multivitamins/Minerals/Vitamin C 1 tab 06/14/18 10:00 06/21/18 10:27 Tab-A-Vit - PO 1 tab DAILY TERRENCE Administration Non-Formulary Medication 1 each 06/14/18 16:00 06/21/18 10:27 Abacavir/Dolutegravir/Lamivudi [Triumeq Tablet] PO 1 each DAILY TERRENCE Administration Ondansetron HCl 8 mg 06/13/18 14:52 06/18/18 11:29 Zofran Injection IVPB 8 mg Q6H PRN Administration NAUSEA AND/OR VOMITING Oxycodone HCl 10 mg 06/21/18 11:39 06/21/18 12:59 Roxicodone - PO 10 mg Q8H PRN Administration PAIN LEVEL 6-10 Potassium Chloride 20 meq 06/20/18 10:45 06/21/18 10:27 K-Dur - PO 20 meq DAILY TERRENCE Administration Simethicone 80 mg 06/15/18 11:06 06/15/18 13:28 Mylicon - PO 80 mg Q4H PRN Administration GAS Tbo-Filgrastim 480 mcg 06/20/18 16:30 06/21/18 16:11 Granix - SQ 480 mcg DAILY TERRENCE Administration Tiotropium [place] 2 puff 06/16/18 10:15 06/21/18 10:34 Spiriva Respimat IH 2 puff DAILY TERRENCE Administration Valacyclovir HCl 500 mg 06/14/18 16:15 06/21/18 10:27 Valtrex - PO 500 mg DAILY TERRENCE Administration Impression: s/p chemotherapy for anal ca UTI- on antibiotics per ID Urinary retention - castro periumbilical hernia diarrhea neutropenia - anticipated on neupogen Plan : Ertapenem per ID monitor cbc/ lytes. OBJECTIVE: ASSESSMENT AND PLAN:
[2018-06-21 21:36] LABS: URINE APPEARANCE CLOUDY; URINE BILIRUBIN NEGATIVE (<2.0 mg/dL); URINE COLOR AMBER; URINE GLUCOSE (UA) NEGATIVE (NEGATIVE); URINE KETONE NEGATIVE (NEGATIVE); URINE LEUK ESTERASE 3+ (NEGATIVE); URINE NITRITE NEGATIVE (NEGATIVE); URINE PROTEIN 2+ (NEGATIVE); URINE UROBILINOGEN NEGATIVE mg/dL (0.2-1.0)
[2018-06-21 21:40] LABS: CALCIUM OXALATE CRYSTALS MODERATE /hpf (NONE SEEN); URINE MUCUS FEW
[2018-06-22] MEDS: oxyCODONE HCL 5 MG TABLET PO PRN ×3 (04:14→21:59)
[2018-06-22] MEDS: ACETAMINOPHEN 325 MG TABLET (FP) PO PRN ×2 (04:15→12:28)
[2018-06-22] MEDS: CYCLOBENZAPRINE HCL 10 MG TABLET (FP) PO PRN ×2 (04:17→18:05)
[2018-06-22 08:04] LABS: BASO % 0.3 % (0-2.0); EOS % 1.1 % (0-4.5); HEMATOCRIT 28.4 % (32.4-45.2); HEMOGLOBIN 9.6 GM/dL (10.7-15.3); LYMPH % 5.6 % (8-40); MCH 34.5 pg (25.7-33.7); MCHC 33.6 g/dl (32.0-36.0); MEAN CELL VOLUME 102.7 fl (80-96); MEAN PLT VOLUME 8.8 fl (7.5-11.1); PLATELET COUNT 85 K/MM3 (134-434); RBC 2.77 M/mm3 (3.60-5.2); RDW 17.4 % (11.6-15.6); WHITE BLOOD COUNT 11.5 K/mm3 (4.0-10.0)
[2018-06-22 09:11] LABS: ALBUMIN 1.6 g/dl (3.4-5.0); ALK PHOS 94 U/L (45-117); ANION GAP 9 MMOL/L (8-16); BILIRUBIN,TOTAL 0.6 mg/dL (0.2-1); BLOOD UREA NITROGEN 6 mg/dL (7-18); CHLORIDE 115 mmol/L (98-107); CO2 20 mmol/L (21-32); CREATININE 0.6 mg/dL (0.55-1.3); GLUCOSE,RANDOM 60 mg/dL (74-106); MAGNESIUM 1.3 mg/dL (1.8-2.4); POTASSIUM 3.1 mmol/L (3.5-5.1); SGOT/AST 22 U/L (15-37); SGPT/ALT 11 U/L (13-61); SODIUM 143 mmol/L (136-145); TOT PROT 4.8 g/dl (6.4-8.2)
[2018-06-22] MEDS ORDERED: MAGNESIUM SULF 50% (8.12 MEQ/2 ML-1 GM VIAL) IVPB ONE (09:47)
[2018-06-22] MEDS ORDERED: POTASSIUM CHLORIDE TABS 20 MEQ TABLET.ER (FP) PO ONE (09:47)
--- NOTE | 2018-06-22 09:59 | PN ---
Physical Exam: SUBJECTIVE: Patient seen and examined at the bedside. had 1 loose stool this morning followed by watery diarrhea. reports eating better OBJECTIVE: mag 2 grams ordered for hypomagnesium (mag 1.3) potassium repleted with 40meq x 1 (k. 3.1) calcium corrected at 7.9, started on calcium supplements duoneb x 1 ordered for mild wheezing discussed with dietary, magic cup not given today since pt has lactose intolerance. encourage ensure/ensure pudding. Vital Signs Period Temp Pulse Resp BP Sys/Wade Pulse Ox Last 24 Hr 98 F-98.1 F 99-112 20-20 85-105/52-59 100 GENERAL: Awake, alert, and fully oriented, in no acute distress. HEAD: Normal with no signs of trauma. EYES: Pupils equal, round and reactive to light, extraocular movements intact, sclera anicteric, conjunctiva clear. No lid lag. EARS, NOSE, THROAT: Ears normal, nares patent, oropharynx clear without exudates. Moist mucous membranes. NECK: Normal range of motion, supple without lymphadenopathy, JVD, or masses. LUNGS: scattered wheezing on upper anterior lobs HEART: Regular rate and rhythm, normal S1 and S2 without murmur, rub or gallop. ABDOMEN: mildly distended, + bowel sounds-on abdominal binder for hernia UPPER EXTREMITIES: No clubbing. No peripheral edema. LOWER EXTREMITIES: No calf tenderness. No peripheral edema. NEUROLOGICAL: Normal speech. PSYCHIATRIC: Cooperative. Good eye contact. Appropriate mood and affect. SKIN: Warm, dry, normal turgor, no rashes or lesions noted, normal capillary refill. Laboratory Results - last 24 hr 06/16/18 06/21/18 06/21/18 12:50 10:00 20:15 WBC 7.7 RBC 2.89 L Hgb 9.9 L Hct 29.8 L MCV 103.1 H MCH 34.3 H MCHC 33.2 RDW 17.1 H Plt Count 81 L D MPV 8.6 D Absolute Neuts (auto) Neutrophils % Lymphocytes % Monocytes % Eosinophils % Basophils % Nucleated RBC % Sodium Potassium Chloride Carbon Dioxide Anion Gap BUN Creatinine Creat Clearance w eGFR Random Glucose Calcium Magnesium Total Bilirubin AST ALT Alkaline Phosphatase Total Protein Albumin Urine Color Daniela Urine Appearance Cloudy Urine pH 5.0 Ur Specific [place] 1.029 Urine Protein 2+ H Urine Glucose (UA) Negative Urine Ketones Negative Urine Blood 3+ H Urine Nitrite Negative Urine Bilirubin Negative Urine Urobilinogen Negative Ur Leukocyte Esterase 3+ H D Urine WBC (Auto) 587 Urine RBC (Auto) 750 Calcium Oxalate Crystal Moderate Urine Mucus Few Stool O & P Wet [place] Permanent Slide Final report 06/22/18 06/22/18 06:00 06:00 WBC 11.5 H RBC 2.77 L Hgb 9.6 L Hct 28.4 L MCV 102.7 H MCH 34.5 H MCHC 33.6 RDW 17.4 H Plt Count 85 L MPV 8.8 Absolute Neuts (auto) 9.6 H Neutrophils % 84.0 H D Lymphocytes % 5.6 L D Monocytes % 9.0 Eosinophils % 1.1 Basophils % 0.3 Nucleated RBC % 0 Sodium 143 Potassium 3.1 L Chloride 115 H Carbon Dioxide 20 L Anion Gap 9 BUN 6 L Creatinine 0.6 Creat Clearance w eGFR > 60 Random Glucose 60 L Calcium 6.0 L* Magnesium 1.3 L Total Bilirubin 0.6 AST 22 ALT 11 L Alkaline Phosphatase 94 Total Protein 4.8 L Albumin 1.6 L Urine Color Urine Appearance Urine pH Ur Specific [place] Urine Protein Urine Glucose (UA) Urine Ketones Urine Blood Urine Nitrite Urine Bilirubin Urine Urobilinogen Ur Leukocyte Esterase Urine WBC (Auto) Urine RBC (Auto) Calcium Oxalate Crystal Urine Mucus Stool O & P Wet [place] Permanent Slide Active Medications Generic Name Dose Route Start Last Admin Trade Name Freq PRN Reason Stop Dose Admin Acetaminophen 325 mg 06/13/18 17:05 06/22/18 04:15 Tylenol - PO 325 mg Q8H PRN Administration PAIN LEVEL 6-10 Albuterol/Ipratropium 1 amp 06/13/18 18:27 06/18/18 14:49 Duoneb - NEB 1 amp Q6H PRN Administration SHORTNESS OF BREATH Calcium Carbonate 500 mg 06/22/18 10:00 Os-Madan 500mg - PO BID TERRENCE Clonazepam 0.25 mg 06/21/18 11:38 Klonopin - PO BID PRN ANXIETY Cyclobenzaprine HCl 5 mg 06/18/18 11:44 06/22/18 04:17 Flexeril - PO 5 mg Q8H PRN Administration MUSCLE SPASMS Docusate Sodium 100 mg 06/21/18 12:58 Colace - PO Q8H PRN CONSTIPATION Emollient Ointment 1 applic 06/15/18 22:00 06/21/18 21:42 Aquaphor - TP 1 applic BID TERRENCE Administration Fentanyl 1 patch 06/21/18 13:00 06/21/18 18:07 Duragesic 12mcg Patch - TD 06/27/18 12:59 1 patch Q72H TERRENCE Administration IV Flush 10 ml 06/15/18 11:04 06/17/18 06:00 Luisa-Cath Flush IVPUSH 10 ml PRN PRN Administration FLUSH IV Flush 10 ml 06/16/18 00:22 Luisa-Cath Flush IVPUSH PRN PRN protocol, maintain patency IV Flush 10 ml 06/19/18 10:56 Luisa-Cath Flush IVPUSH PRN PRN FLUSH Ertapenem 1 gm/ Sodium 50 mls @ 100 mls/hr 06/21/18 12:00 06/21/18 12:59 Chloride IVPB 100 mls/hr DAILY TERRENCE Administration Loperamide HCl 2 mg 06/19/18 10:33 Imodium - PO Q8H PRN DIARRHEA Magnesium Sulfate 2 gm 06/22/18 09:47 Magnesium Sulfate IVPB 06/22/18 09:48 ONCE ONE Midodrine 5 mg 06/21/18 14:00 06/21/18 18:08 Proamatine - PO 5 mg TID-MID TERRENCE Administration Miscellaneous 1 each 06/21/18 12:58 Duragesic Patch Waste TD PRN PRN PAIN Multivitamins/Minerals/Vitamin C 1 tab 06/14/18 10:00 06/21/18 10:27 Tab-A-Vit - PO 1 tab DAILY TERRENCE Administration Non-Formulary Medication 1 each 06/14/18 16:00 06/21/18 10:27 Abacavir/Dolutegravir/Lamivudi [Triumeq Tablet] PO 1 each DAILY TERRENCE Administration Ondansetron HCl 8 mg 06/13/18 14:52 06/18/18 11:29 Zofran Injection IVPB 8 mg Q6H PRN Administration NAUSEA AND/OR VOMITING Oxycodone HCl 10 mg 06/21/18 11:39 06/22/18 04:14 Roxicodone - PO 10 mg Q8H PRN Administration PAIN LEVEL 6-10 Potassium Chloride 20 meq 06/20/18 10:45 06/21/18 10:27 K-Dur - PO 20 meq DAILY TERRENCE Administration Potassium Chloride 40 meq 06/22/18 09:47 K-Dur - PO 06/22/18 09:48 ONCE ONE Simethicone 80 mg 06/15/18 11:06 06/15/18 13:28 Mylicon - PO 80 mg Q4H PRN Administration GAS Tbo-Filgrastim 480 mcg 06/20/18 16:30 06/21/18 16:11 Granix - SQ 480 mcg DAILY TERRENCE Administration Tiotropium [place] 2 puff 06/16/18 10:15 06/21/18 10:34 Spiriva Respimat IH 2 puff DAILY TERRENCE Administration Valacyclovir HCl 500 mg 06/14/18 16:15 06/21/18 10:27 Valtrex - PO 500 mg DAILY TERRENCE Administration ASSESSMENT/PLAN: Patient is a 63 year old female with a significant past medical history of Vivas' s Palsy, HIV+ (follows at the [facility]), COPD, sarcoidosis and squamous cell anal cancer. She is s/p chemotherapy and 28 cycles of RT. Patient admitted under the medicine service for chemotherapy as she has too many comorbidities to manage as an outpatient. Oncology: Squamous cell anal cancer s/p 5-FU via right subclavian mediport Patient on Granix 480mcg daily, wbc now stable tolerated chemotherapy, being closely followed by her oncologist Encourage PO hydration Monitor daily labs GI: Newly incarcerated symptomatic supraumbilical hernia CT scan with IV contrast that showed wall thickening of the cecum, ascending colon and small bowel Pain managed, on abdominal binder Hernia reduced by surgeon, Dr. Shepherd, can be considered for minimal invasive operative repair (3-4 weeks). Diarrhea.had one episode today. on Immodium prn. stool cultures negative. /ID Urinary retention Has castro in place for retention urine culture + for positive for lactose fermenting gnr prior hx of kleb esb. on contact precautions. started on ertapenem 1gm daily monitor intake and output Card: Hypotension On Midodrine 2.5 mg q 8 hrs per cardiology Encourage PO intake Electrolyte imbalance: Hypokalemia, repleted Hypocalcemia, corrected 7.9, supplements added Hypomagnesemia, 1.3. repleted, start supplements bid monitor daily electrolytes. Pulm: COPD, history. not in exacerbation ID: HIV. on Haart therapy. followed by Dr. Herndon Psyche: Anxiety, chronic. On Klonopin bid prn fen po intake check electrolytes daily monitor nutrition. on ensure. dietary following prophy SCDs Physical therapy Visit type - Emergency Visit Emergency Visit: Yes ED Registration Date: 06/13/18 Care time: The patient presented to the Emergency Department on the above date and was hospitalized for further evaluation of their emergent condition. - New Patient This patient is new to me today: No - Critical Care Critical Care patient: No - Discharge Referral Referred to [facility] Med [facility].C[facility] No
[2018-06-22] MEDS ORDERED: ALBUTEROL SO4 2.5/IPRATROPIUM 0.5 INH SOL 3 ML VIAL.NEB. NEB ONE (10:05)
--- NOTE | 2018-06-22 10:07 | PN ---
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 Completed her chemo therapy 06/17. hernia is temporized pain is improved after reduction - Current Medication List Current Medications: Active Medications Acetaminophen (Tylenol -) 325 mg PO Q8H PRN PRN Reason: PAIN LEVEL 6-10 Last Admin: 06/22/18 04:15 Dose: 325 mg Albuterol/Ipratropium (Duoneb -) 1 amp NEB Q6H PRN PRN Reason: SHORTNESS OF BREATH Last Admin: 06/18/18 14:49 Dose: 1 amp Calcium Carbonate (Os-Madan 500mg -) 500 mg PO BID TERRENCE Clonazepam (Klonopin -) 0.25 mg PO BID PRN PRN Reason: ANXIETY Cyclobenzaprine HCl (Flexeril -) 5 mg PO Q8H PRN PRN Reason: MUSCLE SPASMS Last Admin: 06/22/18 04:17 Dose: 5 mg Docusate Sodium (Colace -) 100 mg PO Q8H PRN PRN Reason: CONSTIPATION Emollient Ointment (Aquaphor -) 1 applic TP BID [facility] Last Admin: 06/21/18 21:42 Dose: 1 applic Fentanyl (Duragesic 12mcg Patch -) 1 patch TD Q72H [facility] Stop: 06/27/18 12:59 Last Admin: 06/21/18 18:07 Dose: 1 patch IV Flush (Luisa-Cath Flush) 10 ml IVPUSH PRN PRN PRN Reason: FLUSH Last Admin: 06/17/18 06:00 Dose: 10 ml IV Flush (Luisa-Cath Flush) 10 ml IVPUSH PRN PRN PRN Reason: protocol, maintain patency IV Flush (Luisa-Cath Flush) 10 ml IVPUSH PRN PRN PRN Reason: FLUSH Ertapenem 1 gm/ Sodium (Chloride) 50 mls @ 100 mls/hr IVPB DAILY TERRENCE Last Admin: 06/21/18 12:59 Dose: 100 mls/hr Lactobacillus Acidophilus (Bacid -) 1 tab PO DAILY TERRENCE Loperamide HCl (Imodium -) 2 mg PO Q8H PRN PRN Reason: DIARRHEA Magnesium Sulfate (Magnesium Sulfate) 2 gm IVPB ONCE ONE Stop: 06/22/18 09:48 Midodrine (Proamatine -) 5 mg PO TID-MID [facility] Last Admin: 06/21/18 18:08 Dose: 5 mg Miscellaneous (Duragesic Patch Waste) 1 each TD PRN PRN PRN Reason: PAIN Multivitamins/Minerals/Vitamin C (Tab-A-Vit -) 1 tab PO DAILY [facility] Last Admin: 06/21/18 10:27 Dose: 1 tab Non-Formulary Medication (Abacavir/Dolutegravir/Lamivudi [Triumeq Tablet]) 1 each PO DAILY [facility] Last Admin: 06/21/18 10:27 Dose: 1 each Ondansetron HCl (Zofran Injection) 8 mg IVPB Q6H PRN PRN Reason: NAUSEA AND/OR VOMITING Last Admin: 06/18/18 11:29 Dose: 8 mg Oxycodone HCl (Roxicodone -) 10 mg PO Q8H PRN PRN Reason: PAIN LEVEL 6-10 Last Admin: 06/22/18 04:14 Dose: 10 mg Potassium Chloride (K-Dur -) 20 meq PO DAILY [facility] Last Admin: 06/21/18 10:27 Dose: 20 meq Potassium Chloride (K-Dur -) 40 meq PO ONCE ONE Stop: 06/22/18 09:48 Simethicone (Mylicon -) 80 mg PO Q4H PRN PRN Reason: GAS Last Admin: 06/15/18 13:28 Dose: 80 mg Tbo-Filgrastim (Granix -) 480 mcg SQ DAILY [facility] Last Admin: 06/21/18 16:11 Dose: 480 mcg Tiotropium [place] (Spiriva Respimat) 2 puff IH DAILY [facility] Last Admin: 06/21/18 10:34 Dose: 2 puff Valacyclovir HCl (Valtrex -) 500 mg PO DAILY [facility] Last Admin: 06/21/18 10:27 Dose: 500 mg - Objective Vital Signs: Vital Signs Temperature 98 F 06/22/18 05:44 Pulse Rate 111 H 06/22/18 05:44 Respiratory Rate 20 06/22/18 05:44 Blood Pressure 90/52 L 06/22/18 05:44 O2 Sat by Pulse Oximetry (%) 100 06/21/18 21:00 Vital Signs Period Temp Pulse Resp BP Sys/Wade Pulse Ox Last 24 Hr 98 F-98.1 F 99-112 20-20 85-105/52-59 100 Constitutional: Yes: No Distress, Calm, Cachectic, Thin Eyes: Yes: Conjunctiva Clear, EOM Intact HENT: Yes: Atraumatic, Normocephalic Neck: Yes: Supple, Trachea Midline Cardiovascular: Yes: Regular Rate and Rhythm, S1, S2 Respiratory: Yes: Regular, CTA Bilaterally Gastrointestinal: Yes: Normal Bowel Sounds, Soft ...Rectal Exam: Yes: Deferred Genitourinary: No: CVA Tenderness - Left, CVA Tenderness - Right Extremities: No: Cool, Cyanosis Edema: No Peripheral Pulses WNL: Yes Integumentary: No: Jaundice, Rash Neurological: Yes: Alert, Oriented Psychiatric: Yes: Alert, Oriented Labs: CBC, BMP 06/22/18 06:00 06/22/18 06:00 INR, PTT INR 1.22 (0.83-1.09) H 06/15/18 15:30 Problem List - Problems (1) Incarcerated umbilical hernia Assessment/Plan: 62yo female with MMP with a newly incarcerated symptomatic supraumbilical hernia. will attempt to temporize with a manual reduction until her chemotherapy is completed. After she recovers she can be considered for minimal invasive operative repair (3-4 weeks from 06/17). Please wear abdominal binder until follwoup with surgery muscle relaxant information for followup included in discharge instructions recall surgery as needed Code(s): K42.0 - UMBILICAL HERNIA WITH OBSTRUCTION, WITHOUT GANGRENE (2) Abdominal pain Code(s): R10.9 - UNSPECIFIED ABDOMINAL PAIN Qualifiers: Qualified Code(s): R10.33 - Periumbilical pain (3) Depression Code(s): F32.9 - MAJOR DEPRESSIVE DISORDER, SINGLE EPISODE, UNSPECIFIED (4) COPD (chronic obstructive pulmonary disease) Code(s): J44.9 - CHRONIC OBSTRUCTIVE PULMONARY DISEASE, UNSPECIFIED (5) HIV (human immunodeficiency virus infection) Code(s): Z21 - ASYMPTOMATIC HUMAN IMMUNODEFICIENCY VIRUS INFECTION STATUS
[2018-06-22] MEDS ORDERED: PT OWN MED DRAWER 7, Y5N ONE (10:28)
[2018-06-22] MEDS: ERTAPENEM SODIUM 1 GM in SODIUM CHLORIDE 50 ML IVPB SCH (10:32)
[2018-06-22] MEDS: MULTIVITAMINS (DAILY MVI) TABLET (FP) PO SCH (10:32)
[2018-06-22] MEDS: CALCIUM (OYSTER SHELL) 500 MG TABLET (FP) PO SCH ×2 (10:32→21:59)
[2018-06-22] MEDS: POTASSIUM CHLORIDE TABS 10 MEQ TABLET.ER (FP) PO SCH (10:32)
[2018-06-22] MEDS: MINERAL OIL/PET HY-PHL TOPICAL OINTMENT 454 GM JAR TP SCH ×2 (10:33→21:58)
[2018-06-22] MEDS: TIOTROPIUM BROMIDE 2.5 MCG (SPIRIVA) RESPIMAT INHALER IH SCH (10:33)
[2018-06-22] MEDS: valACYclovir HCL 500 MG TABLET (FP) PO SCH (10:33)
[2018-06-22] MEDS: MIDODRINE HCL 5 MG TABLET PO SCH ×3 (10:33→18:06)
[2018-06-22 12:09] LABS: ANISOCYTOSIS 1+; MACROCYTOSIS 1+; PLATELET ESTIMATE DECREASED
[2018-06-22] MEDS: LACTOBACILLUS ACIDOPHILUS 1 TABLET PO SCH (12:25)
[2018-06-22] MEDS: LOPERAMIDE HCL 2 MG CAPSULE PO PRN (12:25)
--- NOTE | 2018-06-22 14:46 | PN ---
Progress Note (short form) - Note Progress Note: alert diarrhea today still with dysuria-castro discomfort Vital Signs Period Temp Pulse Resp BP Sys/Wade Pulse Ox Last 24 Hr 98 F-98 F 99-111 20-20 90-105/52-59 100 cor-rrr lungs scattered rhonchi abd soft,nt castro with dark urine ext no edema CBC, BMP 06/22/18 06:00 06/22/18 06:00 Current Medications Acetaminophen (Tylenol -) 325 mg PO Q8H PRN PRN Reason: PAIN LEVEL 6-10 Last Admin: 06/22/18 12:28 Dose: 325 mg Albuterol/Ipratropium (Duoneb -) 1 amp NEB Q6H PRN PRN Reason: SHORTNESS OF BREATH Last Admin: 06/18/18 14:49 Dose: 1 amp Calcium Carbonate (Os-Madan 500mg -) 500 mg PO BID [facility] Last Admin: 06/22/18 10:32 Dose: 500 mg Clonazepam (Klonopin -) 0.25 mg PO BID PRN PRN Reason: ANXIETY Cyclobenzaprine HCl (Flexeril -) 5 mg PO Q8H PRN PRN Reason: MUSCLE SPASMS Last Admin: 06/22/18 04:17 Dose: 5 mg Docusate Sodium (Colace -) 100 mg PO Q8H PRN PRN Reason: CONSTIPATION Emollient Ointment (Aquaphor -) 1 applic TP BID [facility] Last Admin: 06/22/18 10:33 Dose: 1 applic Fentanyl (Duragesic 12mcg Patch -) 1 patch TD Q72H [facility] Stop: 06/27/18 12:59 Last Admin: 06/21/18 18:07 Dose: 1 patch IV Flush (Luisa-Cath Flush) 10 ml IVPUSH PRN PRN PRN Reason: FLUSH Last Admin: 06/17/18 06:00 Dose: 10 ml IV Flush (Luisa-Cath Flush) 10 ml IVPUSH PRN PRN PRN Reason: protocol, maintain patency IV Flush (Luisa-Cath Flush) 10 ml IVPUSH PRN PRN PRN Reason: FLUSH Ertapenem 1 gm/ Sodium (Chloride) 50 mls @ 100 mls/hr IVPB DAILY [facility] Last Admin: 06/22/18 10:32 Dose: 100 mls/hr Lactobacillus Acidophilus (Bacid -) 1 tab PO DAILY [facility] Last Admin: 06/22/18 12:25 Dose: 1 tab Loperamide HCl (Imodium -) 2 mg PO Q8H PRN PRN Reason: DIARRHEA Last Admin: 06/22/18 12:25 Dose: 2 mg Midodrine (Proamatine -) 5 mg PO TID-MID [facility] Last Admin: 06/22/18 14:42 Dose: 5 mg Miscellaneous (Duragesic Patch Waste) 1 each TD PRN PRN PRN Reason: PAIN Multivitamins/Minerals/Vitamin C (Tab-A-Vit -) 1 tab PO DAILY [facility] Last Admin: 06/22/18 10:32 Dose: 1 tab Non-Formulary Medication (Abacavir/Dolutegravir/Lamivudi [Triumeq Tablet]) 1 each PO DAILY [facility] Last Admin: 06/22/18 12:25 Dose: 1 each Ondansetron HCl (Zofran Injection) 8 mg IVPB Q6H PRN PRN Reason: NAUSEA AND/OR VOMITING Last Admin: 06/18/18 11:29 Dose: 8 mg Oxycodone HCl (Roxicodone -) 10 mg PO Q8H PRN PRN Reason: PAIN LEVEL 6-10 Last Admin: 06/22/18 12:27 Dose: 10 mg Potassium Chloride (K-Dur -) 20 meq PO DAILY [facility] Last Admin: 06/22/18 10:32 Dose: 20 meq Simethicone (Mylicon -) 80 mg PO Q4H PRN PRN Reason: GAS Last Admin: 06/15/18 13:28 Dose: 80 mg Tbo-Filgrastim (Granix -) 480 mcg SQ DAILY [facility] Last Admin: 06/21/18 16:11 Dose: 480 mcg Tiotropium [place] (Spiriva Respimat) 2 puff IH DAILY [facility] Last Admin: 06/22/18 10:33 Dose: 2 puff Valacyclovir HCl (Valtrex -) 500 mg PO DAILY [facility] Last Admin: 06/22/18 10:33 Dose: 500 mg Microbiology 06/21/18 11:55 Blood - Peripheral Venous Blood Culture - Preliminary NO GROWTH OBTAINED AFTER 24 HOURS, INCUBATION TO CONTINUE FOR 4 DAYS. 06/21/18 12:00 Blood - Peripheral Venous Blood Culture - Preliminary NO GROWTH OBTAINED AFTER 24 HOURS, INCUBATION TO CONTINUE FOR 4 DAYS. 06/19/18 18:45 Urine - Urine Castro Urine Culture - Final Klebsiella Pneumoniae - Esbl 06/16/18 12:50 Stool Salmonella/Shigella Culture - Final NO GROWTH OF SALMONELLA OR SHIGELLA SPECIES OBTAINED 06/16/18 12:50 Stool Campylobacter Culture - Final NO GROWTH OF CAMPYLOBACTER SPECIES OBTAINED 06/16/18 12:50 Stool Yersinia Culture - Final NO GROWTH OF YERSINIA SPECIES OBTAINED 06/16/18 12:50 Stool Vibrio Culture - Final NO GROWTH OF VIBRIO SPECIES OBTAINED 06/16/18 12:50 Stool Escherichia coli 0157 Culture - Final NO GROWTH OF E COLI 0157 OBTAINED 06/16/18 12:50 Stool Clostridium difficile Antigen (JENNIFER) - Final 06/16/18 12:50 Stool Clostridium difficile Toxin Assay - Final a/p UTI- poor urine output- nurse to check castro catheter- kleb esbl+ urinary retention-now with castro-is this secondary to the midodrine?? abdominal pain- umbilical hernia- reduced at bedside, f/u surgery reports less pain continue with binder persistent hypotension - now on midodrine diarrhea- secondary to chemo= cdiff and cultures are negative-resolved anal cancer completed chemo chemo per oncology HIV- continue art, continue valtrex leukopenia resolved -s/p granix contact isolation- history esbl Kleb Problem List - Problems (1) Anal cancer Code(s): C21.0 - MALIGNANT NEOPLASM OF ANUS, UNSPECIFIED (2) HIV (human immunodeficiency virus infection) Code(s): Z21 - ASYMPTOMATIC HUMAN IMMUNODEFICIENCY VIRUS INFECTION STATUS
--- NOTE | 2018-06-22 17:06 | PN ---
Progress Note (short form) - Note Progress Note: Patient seen and examined Complains of suprapubic pains CT reviewed by Dr. Shepherd- air in the bladder, He was concerned about possible fistula. Discussed with radiology - Dr. Bryant- he will put an addendum to CT report. He agrees that air is present .He also states that it is not uncommon to have air in the bladder when castro is inserted and in bladder. Unless strong evidence of fistula- likely secondary to castro catheter - Have asked to follow up . Last Vital Signs Temp Pulse Resp BP Pulse Ox 97.9 F 109 H 20 111/72 100 06/22/18 14:50 06/22/18 14:50 06/22/18 14:50 06/22/18 14:50 06/21/18 21:00 HEENT: EDNNY, EOM Intact Oropharynx: No thrush, No mucositis Neck: Supple Cor: RSR, No murmurs, No gallops Lungs: Clear to P&A Abd: Soft, Normal bowel sounds, No organomegaly, suppra pubic tenderness Ext:No significant edema Skin: No rashes, Integument intact CBC, BMP 06/22/18 06:00 06/22/18 06:00 Current Medications Generic Name Dose Route Start Last Admin Trade Name Freq PRN Reason Stop Dose Admin Acetaminophen 325 mg 06/13/18 17:05 06/22/18 12:28 Tylenol - PO 325 mg Q8H PRN Administration PAIN LEVEL 6-10 Albuterol/Ipratropium 1 amp 06/13/18 18:27 06/18/18 14:49 Duoneb - NEB 1 amp Q6H PRN Administration SHORTNESS OF BREATH Calcium Carbonate 500 mg 06/22/18 10:00 06/22/18 10:32 Os-Madan 500mg - PO 500 mg BID TERRENCE Administration Clonazepam 0.25 mg 06/21/18 11:38 Klonopin - PO BID PRN ANXIETY Cyclobenzaprine HCl 5 mg 06/18/18 11:44 06/22/18 04:17 Flexeril - PO 5 mg Q8H PRN Administration MUSCLE SPASMS Docusate Sodium 100 mg 06/21/18 12:58 Colace - PO Q8H PRN CONSTIPATION Emollient Ointment 1 applic 06/15/18 22:00 06/22/18 10:33 Aquaphor - TP 1 applic BID TERRENCE Administration Fentanyl 1 patch 06/21/18 13:00 06/21/18 18:07 Duragesic 12mcg Patch - TD 06/27/18 12:59 1 patch Q72H TERRENCE Administration IV Flush 10 ml 06/15/18 11:04 06/17/18 06:00 Luisa-Cath Flush IVPUSH 10 ml PRN PRN Administration FLUSH IV Flush 10 ml 06/16/18 00:22 Luisa-Cath Flush IVPUSH PRN PRN protocol, maintain patency IV Flush 10 ml 06/19/18 10:56 Luisa-Cath Flush IVPUSH PRN PRN FLUSH Ertapenem 1 gm/ Sodium 50 mls @ 100 mls/hr 06/21/18 12:00 06/22/18 10:32 Chloride IVPB 100 mls/hr DAILY T[facility]ENCE Administration Lactobacillus Acidophilus 1 tab 06/22/18 10:15 06/22/18 12:25 Bacid - PO 1 tab DAILY T[facility]ENCE Administration Loperamide HCl 2 mg 06/19/18 10:33 06/22/18 12:25 Imodium - PO 2 mg Q8H PRN Administration DIARRHEA Magnesium Oxide 400 mg 06/22/18 22:00 Mag-Ox - PO BID TERRENCE Midodrine 5 mg 06/21/18 14:00 06/22/18 14:42 Proamatine - PO 5 mg TID-MID T[facility]ENCE Administration Miscellaneous 1 each 06/21/18 12:58 Duragesic Patch Waste TD PRN PRN PAIN Multivitamins/Minerals/Vitamin C 1 tab 06/14/18 10:00 06/22/18 10:32 Tab-A-Vit - PO 1 tab DAILY [facility] Administration Non-Formulary Medication 1 each 06/14/18 16:00 06/22/18 12:25 Abacavir/Dolutegravir/Lamivudi [Triumeq Tablet] PO 1 each DAILY [facility] Administration Ondansetron HCl 8 mg 06/13/18 14:52 06/18/18 11:29 Zofran Injection IVPB 8 mg Q6H PRN Administration NAUSEA AND/OR VOMITING Oxycodone HCl 10 mg 06/21/18 11:39 06/22/18 12:27 Roxicodone - PO 10 mg Q8H PRN Administration PAIN LEVEL 6-10 Phenazopyridine HCl 100 mg 06/22/18 18:30 Pyridium - PO PC TERRENCE Potassium Chloride 20 meq 06/20/18 10:45 06/22/18 10:32 K-Dur - PO 20 meq DAILY [facility] Administration Simethicone 80 mg 06/15/18 11:06 06/15/18 13:28 Mylicon - PO 80 mg Q4H PRN Administration GAS Tbo-Filgrastim 480 mcg 06/20/18 16:30 06/21/18 16:11 Granix - SQ 480 mcg DAILY [facility]ENCE Administration Tiotropium [place] 2 puff 06/16/18 10:15 06/22/18 10:33 Spiriva Respimat IH 2 puff DAILY [facility] Administration Valacyclovir HCl 500 mg 06/14/18 16:15 06/22/18 10:33 Valtrex - PO 500 mg DAILY [facility] Administration Impression: Anal ca- s/p RT/chemotherapy HIV UTI on antibiotics Air in bladder - ? secondary to castro, ? secondary to fistulae-doublt Weight gain , poor output Anemia Thrombocytopenia, post chemo/RT Neutropenia- improved with granix Plan Discontinue granix /Renal consults monitor CBC Discussed
--- NOTE | 2018-06-22 17:17 | PN ---
Progress Note (short form) - Note Progress Note: s:no chest pain, palps, dyspnea. Current Medications Generic Name Dose Route Start Last Admin Trade Name Freq PRN Reason Stop Dose Admin Acetaminophen 325 mg 06/13/18 17:05 06/22/18 12:28 Tylenol - PO 325 mg Q8H PRN Administration PAIN LEVEL 6-10 Albuterol/Ipratropium 1 amp 06/13/18 18:27 06/18/18 14:49 Duoneb - NEB 1 amp Q6H PRN Administration SHORTNESS OF BREATH Calcium Carbonate 500 mg 06/22/18 10:00 06/22/18 10:32 Os-Madan 500mg - PO 500 mg BID TERRENCE Administration Clonazepam 0.25 mg 06/21/18 11:38 Klonopin - PO BID PRN ANXIETY Cyclobenzaprine HCl 5 mg 06/18/18 11:44 06/22/18 04:17 Flexeril - PO 5 mg Q8H PRN Administration MUSCLE SPASMS Docusate Sodium 100 mg 06/21/18 12:58 Colace - PO Q8H PRN CONSTIPATION Emollient Ointment 1 applic 06/15/18 22:00 06/22/18 10:33 Aquaphor - TP 1 applic BID TERRENCE Administration Fentanyl 1 patch 06/21/18 13:00 06/21/18 18:07 Duragesic 12mcg Patch - TD 06/27/18 12:59 1 patch Q72H TERRENCE Administration IV Flush 10 ml 06/15/18 11:04 06/17/18 06:00 Luisa-Cath Flush IVPUSH 10 ml PRN PRN Administration FLUSH IV Flush 10 ml 06/16/18 00:22 Luisa-Cath Flush IVPUSH PRN PRN protocol, maintain patency IV Flush 10 ml 06/19/18 10:56 Luisa-Cath Flush IVPUSH PRN PRN FLUSH Ertapenem 1 gm/ Sodium 50 mls @ 100 mls/hr 06/21/18 12:00 06/22/18 10:32 Chloride IVPB 100 mls/hr DAILY [facility]ENCE Administration Lactobacillus Acidophilus 1 tab 06/22/18 10:15 06/22/18 12:25 Bacid - PO 1 tab DAILY [facility] Administration Loperamide HCl 2 mg 06/19/18 10:33 06/22/18 12:25 Imodium - PO 2 mg Q8H PRN Administration DIARRHEA Magnesium Oxide 400 mg 06/22/18 22:00 Mag-Ox - PO BID TERRENCE Midodrine 5 mg 06/21/18 14:00 06/22/18 14:42 Proamatine - PO 5 mg TID-MID TERRENCE Administration Miscellaneous 1 each 06/21/18 12:58 Duragesic Patch Waste TD PRN PRN PAIN Multivitamins/Minerals/Vitamin C 1 tab 06/14/18 10:00 06/22/18 10:32 Tab-A-Vit - PO 1 tab DAILY [facility] Administration Non-Formulary Medication 1 each 06/14/18 16:00 06/22/18 12:25 Abacavir/Dolutegravir/Lamivudi [Triumeq Tablet] PO 1 each DAILY [facility] Administration Ondansetron HCl 8 mg 06/13/18 14:52 06/18/18 11:29 Zofran Injection IVPB 8 mg Q6H PRN Administration NAUSEA AND/OR VOMITING Oxycodone HCl 10 mg 06/21/18 11:39 06/22/18 12:27 Roxicodone - PO 10 mg Q8H PRN Administration PAIN LEVEL 6-10 Phenazopyridine HCl 100 mg 06/22/18 18:30 Pyridium - PO PC COUNT [facility] Potassium Chloride 20 meq 06/20/18 10:45 06/22/18 10:32 K-Dur - PO 20 meq DAILY [facility]ENCE Administration Simethicone 80 mg 06/15/18 11:06 06/15/18 13:28 Mylicon - PO 80 mg Q4H PRN Administration GAS Tiotropium [place] 2 puff 06/16/18 10:15 06/22/18 10:33 Spiriva Respimat IH 2 puff DAILY [facility]ENCE Administration Valacyclovir HCl 500 mg 06/14/18 16:15 06/22/18 10:33 Valtrex - PO 500 mg DAILY [facility] Administration Vital Signs: Vital Signs Period Temp Pulse Resp BP Sys/Wade Pulse Ox Last 24 Hr 97.9 F-98 F 99-111 20-20 90-111/52-72 100 Constitutional: Yes: No Distress, Calm Eyes: Yes: Conjunctiva Clear Respiratory: mild bibasilar crackles, nl eff Gastrointestinal: Yes: Normal Bowel Sounds, Soft Cardiovascular: Yes: Regular Rate and Rhythm JVD: No Heart Sounds: Yes: S1, S2 Musculoskeletal: No: Back Pain Extremities: No: Cold, Cyanosis Edema: no le edema Integumentary: No: Jaundice diaphoresis Neurological: Yes: Alert, Oriented CBC, BMP 06/22/18 06:00 06/22/18 06:00 Assessment/Plan echo 06/2018: nl LV/RV, mild MR, mild TR Hypotension - nl EF on echo - pt reports chronically low bp - got ivfs but then with some vol overload so dc ivfs 06/18 - ortho vitals unremarkable here - appetite has been low with chemo. encouraged PO hydration, salt intake. - bp better with midodrine 5 bid squamous cell anal cancer - chemo and pain control per primary team, onc incarcerated hernia - GI and surgery following COPD - stable, manage per primary HIV - on HAART, ID following UTI, urinary retention: -on abx per ID -urinary retention began on 06/19 and midodrine started 06/20 so would not likely be etiology of retention
[2018-06-22] MEDS: PHENAZOPYRIDINE HCL 100 MG TABLET (FP) PO SCH (18:05)
[2018-06-22] MEDS: TBO-FILGRASTIM 480 MCG/0.8 ML DISP.SYRIN SQ SCH (18:09)
[2018-06-22] MEDS: MAGNESIUM OXIDE 400 MG TABLET (FP) PO SCH (21:58)
[2018-06-22] MEDS: SIMETHICONE 80 MG TAB.CHEW (FP) PO PRN (21:59)
--- NOTE | 2018-06-22 22:23 | PN ---
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
[2018-06-23] MEDS: ENOXAPARIN NA (PORCINE) 80 MG/0.8 ML DISP.SYRIN SQ SCH ×3 (00:07→21:38)
[2018-06-23 07:11] LABS: BASO % 0.2 % (0-2.0); EOS % 1.6 % (0-4.5); HEMATOCRIT 29.4 % (32.4-45.2); HEMOGLOBIN 9.9 GM/dL (10.7-15.3); LYMPH % 6.9 % (8-40); MCH 34.8 pg (25.7-33.7); MCHC 33.6 g/dl (32.0-36.0); MEAN CELL VOLUME 103.8 fl (80-96); MEAN PLT VOLUME 8.5 fl (7.5-11.1); MONO % 9.2 % (3.8-10.2); NEUT % 82.1 % (42.8-82.8); PLATELET COUNT 96 K/MM3 (134-434); RBC 2.84 M/mm3 (3.60-5.2); RDW 17.1 % (11.6-15.6); WHITE BLOOD COUNT 8.6 K/mm3 (4.0-10.0)
[2018-06-23] MEDS: oxyCODONE HCL 5 MG TABLET PO PRN ×2 (07:38→17:09)
[2018-06-23 07:54] LABS: ALBUMIN 1.9 g/dl (3.4-5.0); ALK PHOS 126 U/L (45-117); ANION GAP 5 MMOL/L (8-16); BILIRUBIN,TOTAL 0.6 mg/dL (0.2-1); BLOOD UREA NITROGEN 7 mg/dL (7-18); CALCIUM 7.6 mg/dL (8.5-10.1); CHLORIDE 108 mmol/L (98-107); CO2 26 mmol/L (21-32); CREATININE 0.8 mg/dL (0.55-1.3); GLUCOSE,RANDOM 103 mg/dL (74-106); SGOT/AST 20 U/L (15-37); SGPT/ALT 14 U/L (13-61); SODIUM 139 mmol/L (136-145)
[2018-06-23] MEDS: CALCIUM (OYSTER SHELL) 500 MG TABLET (FP) PO SCH ×2 (09:30→21:38)
[2018-06-23] MEDS: MAGNESIUM OXIDE 400 MG TABLET (FP) PO SCH ×2 (09:30→21:38)
[2018-06-23] MEDS: MULTIVITAMINS (DAILY MVI) TABLET (FP) PO SCH (09:30)
[2018-06-23] MEDS: valACYclovir HCL 500 MG TABLET (FP) PO SCH (09:30)
[2018-06-23] MEDS: POTASSIUM CHLORIDE TABS 10 MEQ TABLET.ER (FP) PO SCH (09:30)
[2018-06-23] MEDS: LACTOBACILLUS ACIDOPHILUS 1 TABLET PO SCH (09:30)
[2018-06-23] MEDS: PHENAZOPYRIDINE HCL 100 MG TABLET (FP) PO SCH ×3 (09:31→17:36)
[2018-06-23] MEDS: CYCLOBENZAPRINE HCL 10 MG TABLET (FP) PO PRN (09:31)
[2018-06-23] MEDS: MINERAL OIL/PET HY-PHL TOPICAL OINTMENT 454 GM JAR TP SCH ×2 (09:35→21:38)
[2018-06-23] MEDS: MIDODRINE HCL 5 MG TABLET PO SCH ×3 (09:35→17:07)
[2018-06-23] MEDS: TIOTROPIUM BROMIDE 2.5 MCG (SPIRIVA) RESPIMAT INHALER IH SCH (09:36)
--- NOTE | 2018-06-23 09:56 | PN ---
Physical Exam: SUBJECTIVE: Patient seen and examined at the bedside. having suprapubic pain and anxiety. being seen by urology for possible removal of castro catheter. OBJECTIVE: morphine 1mg x 1 ordered, given klonopin Vital Signs Period Temp Pulse Resp BP Sys/Wade Pulse Ox Last 24 Hr 97.7 F-98.9 F 104-113 18-20 90-111/53-72 98 GENERAL: crying upset, in pain. awake and alert HEAD: Normal with no signs of trauma. EYES: Pupils equal, round and reactive to light, extraocular movements intact, sclera anicteric, conjunctiva clear. No lid lag. EARS, NOSE, THROAT: Ears normal, nares patent, oropharynx clear without exudates. Moist mucous membranes. NECK: Normal range of motion, supple without lymphadenopathy, JVD, or masses. LUNGS: diminished bilaterally, no wheezing. tolerating room air. HEART: Regular rate and rhythm, normal S1 and S2 without murmur, rub or gallop. ABDOMEN: distended, + bowel sounds-on abdominal binder for hernia UPPER EXTREMITIES: No clubbing. No peripheral edema. LOWER EXTREMITIES: No calf tenderness. No peripheral edema. NEUROLOGICAL: Normal speech. PSYCHIATRIC: Cooperative. Good eye contact. Appropriate mood and affect. SKIN: Warm, dry, normal turgor, no rashes or lesions noted, normal capillary refill. Laboratory Results - last 24 hr 06/22/18 06/23/18 06/23/18 06:00 06:40 06:40 WBC 8.6 RBC 2.84 L Hgb 9.9 L Hct 29.4 L MCV 103.8 H MCH 34.8 H MCHC 33.6 RDW 17.1 H Plt Count 96 L MPV 8.5 Absolute Neuts (auto) 7.0 Neutrophils % 82.1 Neutrophils % (Manual) 80.8 Band Neutrophils % 9.1 Lymphocytes % 6.9 L D Lymphocytes % (Manual) 1.0 L D Monocytes % 9.2 Monocytes % (Manual) 6 Eosinophils % 1.6 Eosinophils % (Manual) 1.0 Basophils % 0.2 Basophils % (Manual) 0.0 Myelocytes % (Man) 0 Promyelocytes % (Man) 0 Blast Cells % (Manual) 0 Nucleated RBC % 0 Metamyelocytes 0 Hypochromia 0 Platelet Estimate Decreased Polychromasia 0 Poikilocytosis 0 Anisocytosis 1+ Microcytosis 0 Macrocytosis 1+ Sodium 139 Potassium 4.0 Chloride 108 H Carbon Dioxide 26 Anion Gap 5 L BUN 7 Creatinine 0.8 Creat Clearance w eGFR > 60 Random Glucose 103 Calcium 7.6 L Magnesium 2.0 Total Bilirubin 0.6 AST 20 ALT 14 Alkaline Phosphatase 126 H Total Protein 6.0 L Albumin 1.9 L Active Medications Generic Name Dose Route Start Last Admin Trade Name Freq PRN Reason Stop Dose Admin Acetaminophen 325 mg 06/13/18 17:05 06/22/18 12:28 Tylenol - PO 325 mg Q8H PRN Administration PAIN LEVEL 6-10 Albuterol/Ipratropium 1 amp 06/13/18 18:27 06/18/18 14:49 Duoneb - NEB 1 amp Q6H PRN Administration SHORTNESS OF BREATH Calcium Carbonate 500 mg 06/22/18 10:00 06/23/18 09:30 Os-Madan 500mg - PO 500 mg BID TERRENCE Administration Clonazepam 0.25 mg 06/21/18 11:38 Klonopin - PO BID PRN ANXIETY Cyclobenzaprine HCl 5 mg 06/18/18 11:44 06/23/18 09:31 Flexeril - PO 5 mg Q8H PRN Administration MUSCLE SPASMS Docusate Sodium 100 mg 06/21/18 12:58 Colace - PO Q8H PRN CONSTIPATION Emollient Ointment 1 applic 06/15/18 22:00 06/23/18 09:35 Aquaphor - TP 1 applic BID TERRENCE Administration Enoxaparin Sodium 80 mg 06/22/18 22:30 06/23/18 09:34 Lovenox - SQ 80 mg BID TERRENCE Administration Fentanyl 1 patch 06/21/18 13:00 06/21/18 18:07 Duragesic 12mcg Patch - TD 06/27/18 12:59 1 patch Q72H TERRENCE Administration IV Flush 10 ml 06/15/18 11:04 06/17/18 06:00 Luisa-Cath Flush IVPUSH 10 ml PRN PRN Administration FLUSH IV Flush 10 ml 06/16/18 00:22 Luisa-Cath Flush IVPUSH PRN PRN protocol, maintain patency IV Flush 10 ml 06/19/18 10:56 Luisa-Cath Flush IVPUSH PRN PRN FLUSH Ertapenem 1 gm/ Sodium 50 mls @ 100 mls/hr 06/21/18 12:00 06/22/18 10:32 Chloride IVPB 100 mls/hr DAILY TERRENCE Administration Lactobacillus Acidophilus 1 tab 06/22/18 10:15 06/23/18 09:30 Bacid - PO 1 tab DAILY TERRENCE Administration Loperamide HCl 2 mg 06/19/18 10:33 06/22/18 12:25 Imodium - PO 2 mg Q8H PRN Administration DIARRHEA Magnesium Oxide 400 mg 06/22/18 22:00 06/23/18 09:30 Mag-Ox - PO 400 mg BID TERRENCE Administration Midodrine 5 mg 06/21/18 14:00 06/23/18 09:35 Proamatine - PO 5 mg TID-MID TERRENCE Administration Miscellaneous 1 each 06/21/18 12:58 Duragesic Patch Waste TD PRN PRN PAIN Multivitamins/Minerals/Vitamin C 1 tab 06/14/18 10:00 06/23/18 09:30 Tab-A-Vit - PO 1 tab DAILY TERRENCE Administration Non-Formulary Medication 1 each 06/14/18 16:00 06/23/18 09:33 Abacavir/Dolutegravir/Lamivudi [Triumeq Tablet] PO 1 each DAILY TERRENCE Administration Ondansetron HCl 8 mg 06/13/18 14:52 06/18/18 11:29 Zofran Injection IVPB 8 mg Q6H PRN Administration NAUSEA AND/OR VOMITING Oxycodone HCl 10 mg 06/21/18 11:39 06/23/18 07:38 Roxicodone - PO 10 mg Q8H PRN Administration PAIN LEVEL 6-10 Phenazopyridine HCl 100 mg 06/22/18 18:30 06/23/18 09:31 Pyridium - PO 100 mg PC TERRENCE Administration Potassium Chloride 20 meq 06/20/18 10:45 06/23/18 09:30 K-Dur - PO 20 meq DAILY TERRENCE Administration Simethicone 80 mg 06/15/18 11:06 06/22/18 21:59 Mylicon - PO 80 mg Q4H PRN Administration GAS Tiotropium [place] 2 puff 06/16/18 10:15 06/23/18 09:36 Spiriva Respimat IH 2 puff DAILY TERRENCE Administration Valacyclovir HCl 500 mg 06/14/18 16:15 06/23/18 09:30 Valtrex - PO 500 mg DAILY TERRENCE Administration ASSESSMENT/PLAN: Patient is a 63 year old female with a significant past medical history of Vivas' s Palsy, HIV+ (follows at the [facility]), COPD, sarcoidosis and squamous cell anal cancer. She is s/p chemotherapy and 28 cycles of RT. Patient admitted under the medicine service for chemotherapy as she has too many comorbidities to manage as an outpatient. Oncology: Squamous cell anal cancer s/p 5-FU via right subclavian mediport Patient on Granix 480mcg daily, wbc now stable tolerated chemotherapy, being closely followed by her oncologist Encourage PO hydration Monitor daily labs GI: Newly incarcerated symptomatic supraumbilical hernia CT scan with IV contrast that showed wall thickening of the cecum, ascending colon and small bowel Pain managed, on abdominal binder Hernia reduced by surgeon, Dr. Shepherd, can be considered for minimal invasive operative repair (3-4 weeks). Diarrhea. on Immodium prn. stool cultures negative. /ID Urinary retention Has castro in place for retention, to be removed today by urology as it is causing her too much pain/discomfort. urine culture + for positive for lactose fermenting gnr prior hx of kleb esb. on contact precautions. started on ertapenem 1gm daily monitor intake and output Card: Hypotension On Midodrine 2.5 mg q 8 hrs per cardiology Encourage PO intake Electrolyte imbalance: Hypokalemia, resolved Hypocalcemia, corrected wnl Hypomagnesemia, resolved monitor daily electrolytes. Pulm: COPD, history. not in exacerbation. duonebs prn ID: HIV. on Haart therapy. followed by Dr. Herndon Psyche: Anxiety, chronic. on klonopin On Klonopin bid prn fen po intake check electrolytes daily monitor nutrition. on ensure. dietary following prophy SCDs Physical therapy Visit type - Emergency Visit Emergency Visit: Yes ED Registration Date: 06/13/18 Care time: The patient presented to the Emergency Department on the above date and was hospitalized for further evaluation of their emergent condition. - New Patient This patient is new to me today: No - Critical Care Critical Care patient: No - Discharge Referral Referred to [facility] Med P.C.: No
[2018-06-23] MEDS ORDERED: MORPHINE SULFATE 2 MG/ML VIAL IVPUSH ONE (10:04)
[2018-06-23] MEDS ORDERED: PT OWN MED DRAWER 7, Y5N ONE (10:55)
--- NOTE | 2018-06-23 12:47 | PN ---
Progress Note (short form) - Note Progress Note: Patient seen and examined at bedside Complains of lower extremity edema Ate oatmeal this AM UCx positive for GNR-lactose fermenting PE Vital Signs Temperature 98.9 F 06/23/18 06:00 Pulse Rate 104 H 06/23/18 06:00 Respiratory Rate 20 06/23/18 06:00 Blood Pressure 94/58 L 06/23/18 06:00 O2 Sat by Pulse Oximetry (%) 98 06/22/18 21:00 thin NAD AAOx3 Tachycardic no murmur CTAB Soft non tender to palpation. Abdominal binder in place bilateral lower extremity 1+ pitting Edema 06/23/18 06/23/18 06:40 06:40 WBC 8.6 RBC 2.84 L Hgb 9.9 L Hct 29.4 L MCV 103.8 H MCHC 33.6 RDW 17.1 H Plt Count 96 L Neutrophils % 82.1 Lymphocytes % 6.9 L D Monocytes % 9.2 Eosinophils % 1.6 Basophils % 0.2 Sodium 139 Potassium 4.0 Chloride 108 H Carbon Dioxide 26 Anion Gap 5 L BUN 7 Creatinine 0.8 06/21/18 11:55 Blood Culture - Preliminary Blood - Peripheral Venous NO GROWTH OBTAINED AFTER 48 HOURS, INCUBATION TO CONTINUE FOR 3 DAYS. 06/21/18 12:00 Blood Culture - Preliminary Blood - Peripheral Venous NO GROWTH OBTAINED AFTER 48 HOURS, INCUBATION TO CONTINUE FOR 3 DAYS. 06/19/18 18:45 Urine Culture - Final Urine - Urine Castro Klebsiella Pneumoniae - Esbl 06/16/18 12:50 Salmonella/Shigella Culture - Final Stool NO GROWTH OF SALMONELLA OR SHIGELLA SPECIES OBTAINED Campylobacter Culture - Final NO GROWTH OF CAMPYLOBACTER SPECIES OBTAINED Yersinia Culture - Final NO GROWTH OF YERSINIA SPECIES OBTAINED Vibrio Culture - Final NO GROWTH OF VIBRIO SPECIES OBTAINED Escherichia coli 0157 Culture - Final NO GROWTH OF E COLI 0157 OBTAINED 06/16/18 12:50 Clostridium difficile Antigen (JENNIFER) - Final Stool Clostridium difficile Toxin Assay - Final Problem List: Anal Cancer HIV Hepatitis B Hepatitis C COPD Sarcoidosis of Lung Liver Cirrhosis possible incarcerated vs strangulated hernia urinary retention Pancytopenia UTI Plan: Patient completed chemotherapy 5FU and mitomycin D/C castro catheter renal consult urology consult appreciated UCx positive for lactose fermenting GNR. History of Klebsiella ESBL-will start on ertapenem 1gm daily. discussed with Dr. Herndon. Send BCx before Abx started Granix yesterday WBC up to 8.6 today Antiemetics pain control Patient needs inpatient monitoring while getting chemotherapy due to comorbidities, medical history, and current medical status. appreciate medical care by hospitalist team
--- NOTE | 2018-06-23 14:21 | CONSULT ---
Consultation: CONSULT REQUEST: Nephrology Resident HISTORY OF PRESENT ILLNESS: 62yo F with h/o HCC, HIV (on HAART therapy; [facility]), HTN, Anal SCC, Vivas 's Palsy who initially presented to hospital for her final infusion for her SCC. She was kept inpatient due to her complicated medical history to oversee for adverse reactions to her chemotherapy. Currently pt endorses some difficulty breathing and some RLQ abdominal pain. Pt denies any f/c/d/c, chest pain, palpitations. 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 Nolasco ID: Dr. Herndon Oncology Dr. Serrano. REVIEW OF SYSTEMS: CONSTITUTIONAL: Present: Malaise, loss of appetite, weight change (decreased) Absent: fever, chills, diaphoresis, generalized weakness, HEENT: Absent: rhinorrhea, nasal congestion, throat pain, throat swelling, difficulty swallowing, mouth swelling, ear pain, eye pain, visual changes CARDIOVASCULAR: Absent: chest pain, syncope, palpitations, irregular heart rate, lightheadedness , peripheral edema RESPIRATORY: Present: Shortness of breath Absent: cough, dyspnea with exertion, orthopnea, wheezing, stridor, hemoptysis GASTROINTESTINAL: Present: Abdominal pain, abdominal distention Absent: nausea, vomiting, diarrhea, constipation, melena, hematochezia GENITOURINARY: Absent: dysuria, frequency, urgency, hesitancy, hematuria, flank pain MUSCULOSKELETAL: Absent: myalgia, arthralgia, joint swelling, back pain, neck pain SKIN: Absent: rash, itching, pallor HEMATOLOGIC/IMMUNOLOGIC: Absent: easy bleeding, easy bruising NEUROLOGIC: Absent: headache, focal weakness or paresthesias, dizziness, unsteady gait, seizure, mental status changes, bladder or bowel incontinence PSYCHIATRIC: Absent: anxiety, depression PHYSICAL EXAMINATION Vital Signs - 24 hr 06/22/18 06/22/18 06/22/18 14:50 18:00 21:00 Temperature 97.9 F 98.3 F Pulse Rate 109 H 113 H Respiratory 20 18 18 Rate Blood Pressure 111/72 98/56 L O2 Sat by Pulse 98 Oximetry (%) 06/22/18 06/23/18 06/23/18 22:00 02:14 06:00 Temperature 98.4 F 97.7 F 98.9 F Pulse Rate 105 H 107 H 104 H Respiratory 20 20 20 Rate Blood Pressure 90/53 L 100/62 94/58 L O2 Sat by Pulse Oximetry (%) 06/23/18 06/23/18 06/23/18 09:00 10:00 14:02 Temperature 98.9 F 98 F Pulse Rate 108 H 104 H Respiratory 20 20 20 Rate Blood Pressure 99/65 101/65 O2 Sat by Pulse 97 Oximetry (%) GENERAL: thin, NAD, awake, alert, and fully oriented, laying in bed HEENT: NC/AT, ANTONETTE, sclera anicteric, dry MM LUNGS: CTA bilaterally. No wheezes, and no crackles. No accessory muscle use. ON 2LNC HEART: Tachycardic rate and regular rhythm, normal S1 and S2 without murmur. ABDOMEN: Soft, nondistended, tenderness to palpation in RLQ, hypoactive bowel sounds, minimally reducible hernia without overlying skin changes. Tympanitic with shifting dullness noted MUSCULOSKELETAL: No CVA tenderness. EXTREMITIES: 2+ DP pulses. Trace to 1+ lower extremity edema. PSYCHIATRIC: Cooperative. Good eye contact. Appropriate mood and affect. SKIN: Warm, dry, no rashes. Laboratory Results - last 24 hr 06/23/18 06/23/18 06:40 06:40 WBC 8.6 RBC 2.84 L Hgb 9.9 L Hct 29.4 L MCV 103.8 H MCH 34.8 H MCHC 33.6 RDW 17.1 H Plt Count 96 L MPV 8.5 Absolute Neuts (auto) 7.0 Neutrophils % 82.1 Lymphocytes % 6.9 L D Monocytes % 9.2 Eosinophils % 1.6 Basophils % 0.2 Nucleated RBC % 0 Sodium 139 Potassium 4.0 Chloride 108 H Carbon Dioxide 26 Anion Gap 5 L BUN 7 Creatinine 0.8 Creat Clearance w eGFR > 60 Random Glucose 103 Calcium 7.6 L Magnesium 2.0 Total Bilirubin 0.6 AST 20 ALT 14 Alkaline Phosphatase 126 H Total Protein 6.0 L Albumin 1.9 L Active Medications Generic Name Dose Route Start Last Admin Trade Name Freq PRN Reason Stop Dose Admin Acetaminophen 325 mg 06/13/18 17:05 06/22/18 12:28 Tylenol - PO 325 mg Q8H PRN Administration PAIN LEVEL 6-10 Albuterol/Ipratropium 1 amp 06/13/18 18:27 06/18/18 14:49 Duoneb - NEB 1 amp Q6H PRN Administration SHORTNESS OF BREATH Calcium Carbonate 500 mg 06/22/18 10:00 06/23/18 09:30 Os-Madan 500mg - PO 500 mg BID TERRENCE Administration Clonazepam 0.25 mg 06/21/18 11:38 06/23/18 10:46 Klonopin - PO 0.25 mg BID PRN Administration ANXIETY Cyclobenzaprine HCl 5 mg 06/18/18 11:44 06/23/18 09:31 Flexeril - PO 5 mg Q8H PRN Administration MUSCLE SPASMS Docusate Sodium 100 mg 06/21/18 12:58 Colace - PO Q8H PRN CONSTIPATION Emollient Ointment 1 applic 06/15/18 22:00 06/23/18 09:35 Aquaphor - TP 1 applic BID TERRENCE Administration Enoxaparin Sodium 80 mg 06/22/18 22:30 06/23/18 09:34 Lovenox - SQ 80 mg BID TERRENCE Administration Fentanyl 1 patch 06/21/18 13:00 06/21/18 18:07 Duragesic 12mcg Patch - TD 06/27/18 12:59 1 patch Q72H TERRENCE Administration IV Flush 10 ml 06/15/18 11:04 06/17/18 06:00 Luisa-Cath Flush IVPUSH 10 ml PRN PRN Administration FLUSH IV Flush 10 ml 06/16/18 00:22 Luisa-Cath Flush IVPUSH PRN PRN protocol, maintain patency IV Flush 10 ml 06/19/18 10:56 Luisa-Cath Flush IVPUSH PRN PRN FLUSH Ertapenem 1 gm/ Sodium 50 mls @ 100 mls/hr 06/21/18 12:00 06/22/18 10:32 Chloride IVPB 100 mls/hr DAILY TERRENCE Administration Lactobacillus Acidophilus 1 tab 06/22/18 10:15 11/15/18 09:30 Bacid - PO 1 tab DAILY TERRENCE Administration Loperamide HCl 2 mg 06/19/18 10:33 06/22/18 12:25 Imodium - PO 2 mg Q8H PRN Administration DIARRHEA Magnesium Oxide 400 mg 06/22/18 22:00 06/23/18 09:30 Mag-Ox - PO 400 mg BID TERRENCE Administration Midodrine 5 mg 06/21/18 14:00 06/23/18 14:05 Proamatine - PO 5 mg TID-MID TERRENCE Administration Miscellaneous 1 each 06/21/18 12:58 Duragesic Patch Waste TD PRN PRN PAIN Multivitamins/Minerals/Vitamin C 1 tab 06/14/18 10:00 06/23/18 09:30 Tab-A-Vit - PO 1 tab DAILY TERRENCE Administration Non-Formulary Medication 1 each 06/14/18 16:00 06/23/18 09:33 Abacavir/Dolutegravir/Lamivudi [Triumeq Tablet] PO 1 each DAILY TERRENCE Administration Ondansetron HCl 8 mg 06/13/18 14:52 06/18/18 11:29 Zofran Injection IVPB 8 mg Q6H PRN Administration NAUSEA AND/OR VOMITING Oxycodone HCl 10 mg 06/21/18 11:39 06/23/18 07:38 Roxicodone - PO 10 mg Q8H PRN Administration PAIN LEVEL 6-10 Phenazopyridine HCl 100 mg 06/22/18 18:30 06/23/18 14:04 Pyridium - PO 100 mg PC TERRENCE Administration Potassium Chloride 20 meq 06/20/18 10:45 06/23/18 09:30 K-Dur - PO 20 meq DAILY TERRENCE Administration Simethicone 80 mg 06/15/18 11:06 06/22/18 21:59 Mylicon - PO 80 mg Q4H PRN Administration GAS Tiotropium [place] 2 puff 06/16/18 10:15 06/23/18 09:36 Spiriva Respimat IH 2 puff DAILY TERRENCE Administration Valacyclovir HCl 500 mg 06/14/18 16:15 06/23/18 09:30 Valtrex - PO 500 mg DAILY TERRENCE Administration ASSESSMENT/PLAN: Urinary retention vs. Volume overload SCC (anal) HIV Hepatitis B Hepatitis C Sarcoidosis Pancytopenia UTI Decreased calorie intake --Albumin 25gm once with Lasix 40mg IVP to help diurese some fluid and help with symptoms --Monitor Reyes output --Encouraged pt to eat as much as she can to increase albumin; ordered Ensure with meals --Monitor electrolytes and replete as needed --Rest per primary and oncology teams Dispo: Monitor fluid balance and encourage PO intake. Thank you for consultative opportunities Case discussed with Dr. Eula Ronquillo, DO - IM PGY-2 Visit type - Emergency Visit Emergency Visit: Yes ED Registration Date: 06/13/18 Care time: The patient presented to the Emergency Department on the above date and was hospitalized for further evaluation of their emergent condition. - New Patient This patient is new to me today: Yes Date on this admission: 06/23/18 - Critical Care Critical Care patient: No
[2018-06-23] MEDS: ERTAPENEM SODIUM 1 GM in SODIUM CHLORIDE 50 ML IVPB SCH (14:42)
[2018-06-23] MEDS ORDERED: ALBUMIN HUMAN 25% 12.5 GM/50 ML VIAL IVPB ONE (14:48)
[2018-06-23] MEDS ORDERED: FUROSEMIDE 40 MG/4 ML INJECTABLE VIAL IVPUSH ONE (14:48)
[2018-06-23] MEDS: PORTA CATH FLUSH 10 ML IVPUSH PRN (16:10)
--- NOTE | 2018-06-23 16:15 | PN ---
Teaching Attending Note Name of Resident: Mark Ronquillo (Nephrology) ATTENDING PHYSICIAN STATEMENT I saw and evaluated the patient. I reviewed the resident's note and discussed the case with the resident. I agree with the resident's findings and plan as documented. Renal Pt is a 62 year old female with pmhx of HIV, HCC, HTN, anal SCC and bells palsy who initially presented for her final infusion for her SCC. I was called to evaluate the pts volume status. She has had poor PO intake and has been on fluids. She has put on about 20 pounds since admission. She complains of abdominal bloating and lower ext edema. She denies chest pain. She does get SOB when she lays down. pmhx hiv hcc htn bels palsy family hx denies Current Medications Generic Name Dose Route Start Last Admin Trade Name Freq PRN Reason Stop Dose Admin Acetaminophen 325 mg 06/13/18 17:05 06/22/18 12:28 Tylenol - PO 325 mg Q8H PRN Administration PAIN LEVEL 6-10 Albuterol/Ipratropium 1 amp 06/13/18 18:27 06/18/18 14:49 Duoneb - NEB 1 amp Q6H PRN Administration SHORTNESS OF BREATH Calcium Carbonate 500 mg 06/22/18 10:00 06/23/18 09:30 Os-Madan 500mg - PO 500 mg BID TERRENCE Administration Clonazepam 0.25 mg 06/21/18 11:38 06/23/18 10:46 Klonopin - PO 0.25 mg BID PRN Administration ANXIETY Cyclobenzaprine HCl 5 mg 06/18/18 11:44 06/23/18 09:31 Flexeril - PO 5 mg Q8H PRN Administration MUSCLE SPASMS Docusate Sodium 100 mg 06/21/18 12:58 Colace - PO Q8H PRN CONSTIPATION Emollient Ointment 1 applic 06/15/18 22:00 06/23/18 09:35 Aquaphor - TP 1 applic BID TERRENCE Administration Enoxaparin Sodium 80 mg 06/22/18 22:30 06/23/18 09:34 Lovenox - SQ 80 mg BID TERRENCE Administration Fentanyl 1 patch 06/21/18 13:00 06/21/18 18:07 Duragesic 12mcg Patch - TD 06/27/18 12:59 1 patch Q72H TERRENCE Administration IV Flush 10 ml 06/15/18 11:04 06/23/18 16:10 Luisa-Cath Flush IVPUSH 10 ml PRN PRN Administration FLUSH IV Flush 10 ml 06/16/18 00:22 Luisa-Cath Flush IVPUSH PRN PRN protocol, maintain patency IV Flush 10 ml 06/19/18 10:56 Luisa-Cath Flush IVPUSH PRN PRN FLUSH Ertapenem 1 gm/ Sodium 50 mls @ 100 mls/hr 06/21/18 12:00 06/23/18 14:42 Chloride IVPB 100 mls/hr DAILY TERRENCE Administration Lactobacillus Acidophilus 1 tab 06/22/18 10:15 06/23/18 09:30 Bacid - PO 1 tab DAILY TERRENCE Administration Loperamide HCl 2 mg 06/19/18 10:33 06/22/18 12:25 Imodium - PO 2 mg Q8H PRN Administration DIARRHEA Magnesium Oxide 400 mg 06/22/18 22:00 06/23/18 09:30 Mag-Ox - PO 400 mg BID TERRENCE Administration Midodrine 5 mg 06/21/18 14:00 06/23/18 14:05 Proamatine - PO 5 mg TID-MID TERRENCE Administration Miscellaneous 1 each 06/21/18 12:58 Duragesic Patch Waste TD PRN PRN PAIN Multivitamins/Minerals/Vitamin C 1 tab 06/14/18 10:00 06/23/18 09:30 Tab-A-Vit - PO 1 tab DAILY TERRENCE Administration Non-Formulary Medication 1 each 06/14/18 16:00 06/23/18 09:33 Abacavir/Dolutegravir/Lamivudi [Triumeq Tablet] PO 1 each DAILY TERRENCE Administration Ondansetron HCl 8 mg 06/13/18 14:52 06/18/18 11:29 Zofran Injection IVPB 8 mg Q6H PRN Administration NAUSEA AND/OR VOMITING Oxycodone HCl 10 mg 06/21/18 11:39 06/23/18 07:38 Roxicodone - PO 10 mg Q8H PRN Administration PAIN LEVEL 6-10 Phenazopyridine HCl 100 mg 06/22/18 18:30 06/23/18 14:04 Pyridium - PO 100 mg PC TERRENCE Administration Potassium Chloride 20 meq 06/20/18 10:45 06/23/18 09:30 K-Dur - PO 20 meq DAILY TERRENCE Administration Simethicone 80 mg 06/15/18 11:06 06/22/18 21:59 Mylicon - PO 80 mg Q4H PRN Administration GAS Tiotropium [place] 2 puff 06/16/18 10:15 06/23/18 09:36 Spiriva Respimat IH 2 puff DAILY TERRENCE Administration Valacyclovir HCl 500 mg 06/14/18 16:15 06/23/18 09:30 Valtrex - PO 500 mg DAILY TERRENCE Administration Last Vital Signs Temp Pulse Resp BP Pulse Ox 98 F 104 H 20 101/65 97 06/23/18 14:02 06/23/18 14:02 06/23/18 14:02 06/23/18 14:02 06/23/18 09:00 Selected Entries 06/13/18 06/23/18 09:20 06:00 Weight 160 lb 179 lb 9.6 oz Laboratory Tests 06/20/18 06/20/18 06/21/18 05:55 16:30 06:25 Hgb Plt Count Sodium Potassium 3.4 L Chloride Anion Gap Creatinine Calcium 6.9 L* 7.5 L Urine Protein Urine Blood 06/21/18 06/22/18 06/23/18 20:15 06:00 06:40 Hgb 9.9 L Plt Count 96 L Sodium Potassium 3.1 L Chloride Anion Gap Creatinine Calcium Urine Protein 2+ H Urine Blood 3+ H 06/23/18 06:40 Hgb Plt Count Sodium 139 Potassium 4.0 Chloride 108 H Anion Gap 5 L Creatinine 0.8 Calcium 7.6 L Urine Protein Urine Blood cardio s1s2 pulm base crackles GI soft castro ext plus 2 edema neuro awake and alert Impression 1. volume overload 2. HIV 3. Hep B 4. Hep C 5. HTN 6. COPD Plan - will give a dose of lasix and a dose of albumin - evaluate volume status and urine output - repeat labs in am - will follow pt - encourage PO intake - cont supplements, pt on ensure - pt has low albumin and likely third spaced much of the fluids that she was given Dr Forde
--- NOTE | 2018-06-23 16:15 | PN ---
Progress Note (short form) - Note Progress Note: alert castro is out this am she just voided 100 cc much more comfortable, still with dysuria Vital Signs Period Temp Pulse Resp BP Sys/Wade Pulse Ox Last 24 Hr 97.7 F-98.9 F 104-113 18-20 90-101/53-65 97-98 cor-rrr lungs decreased bs at bases abd +umbilical hernia, tender to palpation ext +edema CBC, BMP 06/23/18 06:40 06/23/18 06:40 Microbiology 06/21/18 11:55 Blood - Peripheral Venous Blood Culture - Preliminary NO GROWTH OBTAINED AFTER 48 HOURS, INCUBATION TO CONTINUE FOR 3 DAYS. 06/21/18 12:00 Blood - Peripheral Venous Blood Culture - Preliminary NO GROWTH OBTAINED AFTER 48 HOURS, INCUBATION TO CONTINUE FOR 3 DAYS. 06/19/18 18:45 Urine - Urine Castro Urine Culture - Final Klebsiella Pneumoniae - Esbl 06/16/18 12:50 Stool Salmonella/Shigella Culture - Final NO GROWTH OF SALMONELLA OR SHIGELLA SPECIES OBTAINED 06/16/18 12:50 Stool Campylobacter Culture - Final NO GROWTH OF CAMPYLOBACTER SPECIES OBTAINED 06/16/18 12:50 Stool Yersinia Culture - Final NO GROWTH OF YERSINIA SPECIES OBTAINED 06/16/18 12:50 Stool Vibrio Culture - Final NO GROWTH OF VIBRIO SPECIES OBTAINED 06/16/18 12:50 Stool Escherichia coli 0157 Culture - Final NO GROWTH OF E COLI 0157 OBTAINED 06/16/18 12:50 Stool Clostridium difficile Antigen (JENNIFER) - Final 06/16/18 12:50 Stool Clostridium difficile Toxin Assay - Final a/p UTI- kelb esbl continue ertapenem urinary retention-castro d/ra-is this secondary to the midodrine??-renal to evaluate- also poor urine output abdominal pain- umbilical hernia- reduced at bedside, f/u surgery reports less pain continue with binder persistent hypotension - now on midodrine diarrhea- secondary to chemo= cdiff and cultures are negative-resolved anal cancer completed chemo chemo per oncology HIV- continue art, continue valtrex leukopenia resolved -s/p granix contact isolation- history esbl Kleb d/w patient at length Problem List - Problems (1) Anal cancer Code(s): C21.0 - MALIGNANT NEOPLASM OF ANUS, UNSPECIFIED (2) HIV (human immunodeficiency virus infection) Code(s): Z21 - ASYMPTOMATIC HUMAN IMMUNODEFICIENCY VIRUS INFECTION STATUS
--- NOTE | 2018-06-23 18:56 | PN ---
Progress Note (short form) - Note Progress Note: Patient seen and examined c/o diarrhea Last Vital Signs Temp Pulse Resp BP Pulse Ox 98 F 104 H 20 101/65 97 06/23/18 14:02 06/23/18 14:02 06/23/18 14:02 06/23/18 14:02 06/23/18 09:00 Cor: RSR, No murmurs, No gallops Lungs: Clear to P&A Abd: abdominal binder present Ext:No significant edema Abnormal Lab Results 06/23/18 06/23/18 06:40 06:40 RBC 2.84 L Hgb 9.9 L Hct 29.4 L MCV 103.8 H MCH 34.8 H RDW 17.1 H Plt Count 96 L Lymphocytes % 6.9 L D Chloride 108 H Anion Gap 5 L Calcium 7.6 L Alkaline Phosphatase 126 H Total Protein 6.0 L Albumin 1.9 L Active Medications Generic Name Dose Route Start Last Admin Trade Name Freq PRN Reason Stop Dose Admin Acetaminophen 325 mg 06/13/18 17:05 06/22/18 12:28 Tylenol - PO 325 mg Q8H PRN Administration PAIN LEVEL 6-10 Albuterol/Ipratropium 1 amp 06/13/18 18:27 06/18/18 14:49 Duoneb - NEB 1 amp Q6H PRN Administration SHORTNESS OF BREATH Calcium Carbonate 500 mg 06/22/18 10:00 06/23/18 09:30 Os-Madan 500mg - PO 500 mg BID TERRENCE Administration Clonazepam 0.25 mg 06/21/18 11:38 06/23/18 10:46 Klonopin - PO 0.25 mg BID PRN Administration ANXIETY Cyclobenzaprine HCl 5 mg 06/18/18 11:44 06/23/18 09:31 Flexeril - PO 5 mg Q8H PRN Administration MUSCLE SPASMS Docusate Sodium 100 mg 06/21/18 12:58 Colace - PO Q8H PRN CONSTIPATION Emollient Ointment 1 applic 06/15/18 22:00 06/23/18 09:35 Aquaphor - TP 1 applic BID TERRENCE Administration Enoxaparin Sodium 80 mg 06/22/18 22:30 06/23/18 09:34 Lovenox - SQ 80 mg BID TERRENCE Administration Fentanyl 1 patch 06/21/18 13:00 06/21/18 18:07 Duragesic 12mcg Patch - TD 06/27/18 12:59 1 patch Q72H TERRENCE Administration IV Flush 10 ml 06/15/18 11:04 06/23/18 16:10 Luisa-Cath Flush IVPUSH 10 ml PRN PRN Administration FLUSH IV Flush 10 ml 06/16/18 00:22 Luisa-Cath Flush IVPUSH PRN PRN protocol, maintain patency IV Flush 10 ml 06/19/18 10:56 Luisa-Cath Flush IVPUSH PRN PRN FLUSH Ertapenem 1 gm/ Sodium 50 mls @ 100 mls/hr 06/21/18 12:00 06/23/18 14:42 Chloride IVPB 100 mls/hr DAILY TERRENCE Administration Lactobacillus Acidophilus 1 tab 06/22/18 10:15 06/23/18 09:30 Bacid - PO 1 tab DAILY TERRENCE Administration Loperamide HCl 2 mg 06/19/18 10:33 06/22/18 12:25 Imodium - PO 2 mg Q8H PRN Administration DIARRHEA Magnesium Oxide 400 mg 06/22/18 22:00 06/23/18 09:30 Mag-Ox - PO 400 mg BID TERRENCE Administration Midodrine 5 mg 06/21/18 14:00 06/23/18 17:07 Proamatine - PO 5 mg TID-MID TERRENCE Administration Miscellaneous 1 each 06/21/18 12:58 Duragesic Patch Waste TD PRN PRN PAIN Multivitamins/Minerals/Vitamin C 1 tab 06/14/18 10:00 06/23/18 09:30 Tab-A-Vit - PO 1 tab DAILY TERRENCE Administration Non-Formulary Medication 1 each 06/14/18 16:00 06/23/18 09:33 Abacavir/Dolutegravir/Lamivudi [Triumeq Tablet] PO 1 each DAILY TERRENCE Administration Ondansetron HCl 8 mg 06/13/18 14:52 06/18/18 11:29 Zofran Injection IVPB 8 mg Q6H PRN Administration NAUSEA AND/OR VOMITING Oxycodone HCl 10 mg 06/21/18 11:39 06/23/18 17:09 Roxicodone - PO 10 mg Q8H PRN Administration PAIN LEVEL 6-10 Phenazopyridine HCl 100 mg 06/22/18 18:30 06/23/18 17:36 Pyridium - PO 100 mg PC TERRENCE Administration Potassium Chloride 20 meq 06/20/18 10:45 06/23/18 09:30 K-Dur - PO 20 meq DAILY TERRENCE Administration Simethicone 80 mg 06/15/18 11:06 06/22/18 21:59 Mylicon - PO 80 mg Q4H PRN Administration GAS Tiotropium [place] 2 puff 06/16/18 10:15 06/23/18 09:36 Spiriva Respimat IH 2 puff DAILY TERRENCE Administration Valacyclovir HCl 500 mg 06/14/18 16:15 06/23/18 09:30 Valtrex - PO 500 mg DAILY TERRENCE Administration A/P Anal Cancer HIV Hepatitis B Hepatitis C COPD Sarcoidosis of Lung HCC Liver Cirrhosis abdominal hernia --has a binder klebsiella UTI --on ertapenem diarrhea-- c.diff - will start imodium air in the bladder -- ? castro related seen by urology d/c matthew
[2018-06-23] MEDS ORDERED: LOPERAMIDE HCL 2 MG CAPSULE PO ONE (19:22)
[2018-06-24] MEDS: oxyCODONE HCL 5 MG TABLET PO PRN (06:33)
[2018-06-24 07:49] LABS: BASO % 0.4 % (0-2.0); EOS % 3.4 % (0-4.5); HEMATOCRIT 27.9 % (32.4-45.2); HEMOGLOBIN 9.1 GM/dL (10.7-15.3); LYMPH % 16.7 % (8-40); MCH 33.7 pg (25.7-33.7); MCHC 32.6 g/dl (32.0-36.0); MEAN CELL VOLUME 103.3 fl (80-96); MEAN PLT VOLUME 8.3 fl (7.5-11.1); MONO % 18.9 % (3.8-10.2); NEUT % 60.6 % (42.8-82.8); PLATELET COUNT 88 K/MM3 (134-434); RDW 17.8 % (11.6-15.6); WHITE BLOOD COUNT 3.7 K/mm3 (4.0-10.0)
[2018-06-24] MEDS: PHENAZOPYRIDINE HCL 100 MG TABLET (FP) PO SCH ×3 (08:07→17:29)
[2018-06-24 08:15] LABS: ALK PHOS 112 U/L (45-117); ANION GAP 5 MMOL/L (8-16); BILIRUBIN,TOTAL 0.6 mg/dL (0.2-1); BLOOD UREA NITROGEN 6 mg/dL (7-18); CALCIUM 7.5 mg/dL (8.5-10.1); CHLORIDE 105 mmol/L (98-107); CO2 29 mmol/L (21-32); CREATININE 0.8 mg/dL (0.55-1.3); GLUCOSE,RANDOM 81 mg/dL (74-106); MAGNESIUM 1.9 mg/dL (1.8-2.4); POTASSIUM 3.4 mmol/L (3.5-5.1); SGOT/AST 20 U/L (15-37); SGPT/ALT 13 U/L (13-61); SODIUM 139 mmol/L (136-145); TOT PROT 5.6 g/dl (6.4-8.2)
[2018-06-24] MEDS ORDERED: PT OWN MED DRAWER 7, Y5N ONE ×5 (10:03→21:24)
[2018-06-24] MEDS: LACTOBACILLUS ACIDOPHILUS 1 TABLET PO SCH (10:11)
[2018-06-24] MEDS: MIDODRINE HCL 5 MG TABLET PO SCH ×3 (10:11→17:29)
[2018-06-24] MEDS: CALCIUM (OYSTER SHELL) 500 MG TABLET (FP) PO SCH ×2 (10:11→22:30)
[2018-06-24] MEDS: MULTIVITAMINS (DAILY MVI) TABLET (FP) PO SCH (10:11)
[2018-06-24] MEDS: valACYclovir HCL 500 MG TABLET (FP) PO SCH (10:12)
[2018-06-24] MEDS: ENOXAPARIN NA (PORCINE) 80 MG/0.8 ML DISP.SYRIN SQ SCH ×2 (10:12→22:30)
[2018-06-24] MEDS: MAGNESIUM OXIDE 400 MG TABLET (FP) PO SCH ×2 (10:12→22:30)
[2018-06-24] MEDS: POTASSIUM CHLORIDE TABS 10 MEQ TABLET.ER (FP) PO SCH (10:12)
[2018-06-24] MEDS: ERTAPENEM SODIUM 1 GM in SODIUM CHLORIDE 50 ML IVPB SCH (10:18)
[2018-06-24] MEDS: TIOTROPIUM BROMIDE 2.5 MCG (SPIRIVA) RESPIMAT INHALER IH SCH (10:18)
[2018-06-24] MEDS: MINERAL OIL/PET HY-PHL TOPICAL OINTMENT 454 GM JAR TP SCH ×2 (10:18→22:30)
[2018-06-24] MEDS: fentaNYL 12mcg/hr PATCH.TD72 TD SCH (12:28)
--- NOTE | 2018-06-24 12:32 | PN ---
Progress Note (short form) - Note Progress Note: Patient seen and examined at bedside no complaints today feels well suprapubic pain resolved UCx positive for Klebsiella PE Vital Signs Temperature 98.9 F 06/23/18 06:00 Pulse Rate 104 H 06/23/18 06:00 Respiratory Rate 20 06/23/18 06:00 Blood Pressure 94/58 L 06/23/18 06:00 O2 Sat by Pulse Oximetry (%) 98 06/22/18 21:00 thin NAD AAOx3 Tachycardic no murmur CTAB Soft non tender to palpation. Abdominal binder in place bilateral lower extremity 1+ pitting Edema 06/24/18 06/24/18 06:00 06:00 WBC 3.7 L RBC 2.70 L Hgb 9.1 L Hct 27.9 L MCV 103.3 H MCHC 32.6 RDW 17.8 H Plt Count 88 L Neutrophils % 60.6 D Lymphocytes % 16.7 D Monocytes % 18.9 H D Eosinophils % 3.4 D Basophils % 0.4 Sodium 139 Potassium 3.4 L Chloride 105 Carbon Dioxide 29 Anion Gap 5 L BUN 6 L Creatinine 0.8 06/21/18 11:55 Blood Culture - Preliminary Blood - Peripheral Venous NO GROWTH OBTAINED AFTER 72 HOURS, INCUBATION TO CONTINUE FOR 2 DAYS. 06/21/18 12:00 Blood Culture - Preliminary Blood - Peripheral Venous NO GROWTH OBTAINED AFTER 72 HOURS, INCUBATION TO CONTINUE FOR 2 DAYS. 06/23/18 14:30 Urine Culture - Pending Urine - Urine Clean Catch 06/19/18 18:45 Urine Culture - Final Urine - Urine Castro Klebsiella Pneumoniae - Esbl 06/16/18 12:50 Salmonella/Shigella Culture - Final Stool NO GROWTH OF SALMONELLA OR SHIGELLA SPECIES OBTAINED Campylobacter Culture - Final NO GROWTH OF CAMPYLOBACTER SPECIES OBTAINED Yersinia Culture - Final NO GROWTH OF YERSINIA SPECIES OBTAINED Vibrio Culture - Final NO GROWTH OF VIBRIO SPECIES OBTAINED Escherichia coli 0157 Culture - Final NO GROWTH OF E COLI 0157 OBTAINED 06/16/18 12:50 Clostridium difficile Antigen (JENNIFER) - Final Stool Clostridium difficile Toxin Assay - Final Problem List: Anal Cancer HIV Hepatitis B Hepatitis C COPD Sarcoidosis of Lung Liver Cirrhosis possible incarcerated vs strangulated hernia urinary retention Pancytopenia UTI Plan: Patient completed chemotherapy 5FU and mitomycin D/C castro catheter-patient put out 3200ml freely voiding and pain resolved renal consult appreciated urology consult appreciated UCx positive for lactose fermenting GNR-Klebsiella ESBL continue ertapenem per ID WBC down to 3.7 today Antiemetics pain control Patient needs inpatient monitoring while getting chemotherapy due to comorbidities, medical history, and current medical status. appreciate medical care by hospitalist team
--- NOTE | 2018-06-24 13:06 | PN ---
Physical Exam: SUBJECTIVE: Patient seen and examined at the bedside. OBJECTIVE: Vital Signs Period Temp Pulse Resp BP Sys/Wade Pulse Ox Last 24 Hr 97.9 F-98.2 F 91-106 18-20 90-101/54-65 95-95 GENERAL: awake and alert HEAD: Normal with no signs of trauma. EYES: Pupils equal, round and reactive to light, extraocular movements intact, sclera anicteric, conjunctiva clear. No lid lag. EARS, NOSE, THROAT: Ears normal, nares patent, oropharynx clear without exudates. Moist mucous membranes. NECK: Normal range of motion, supple without lymphadenopathy, JVD, or masses. LUNGS: diminished bilaterally, no wheezing. tolerating room air. HEART: Regular rate and rhythm, normal S1 and S2 without murmur, rub or gallop. ABDOMEN: distended, + bowel sounds-on abdominal binder for hernia UPPER EXTREMITIES: No clubbing. No peripheral edema. LOWER EXTREMITIES: No calf tenderness. No peripheral edema. NEUROLOGICAL: Normal speech. PSYCHIATRIC: Cooperative. Good eye contact. Appropriate mood and affect. SKIN: Warm, dry, normal turgor, no rashes or lesions noted, normal capillary refill. Laboratory Results - last 24 hr 06/24/18 06/24/18 06:00 06:00 WBC 3.7 L RBC 2.70 L Hgb 9.1 L Hct 27.9 L MCV 103.3 H MCH 33.7 MCHC 32.6 RDW 17.8 H Plt Count 88 L MPV 8.3 Absolute Neuts (auto) 2.2 Neutrophils % 60.6 D Lymphocytes % 16.7 D Monocytes % 18.9 H D Eosinophils % 3.4 D Basophils % 0.4 Nucleated RBC % 0 Sodium 139 Potassium 3.4 L Chloride 105 Carbon Dioxide 29 Anion Gap 5 L BUN 6 L Creatinine 0.8 Creat Clearance w eGFR > 60 Random Glucose 81 Calcium 7.5 L Magnesium 1.9 Total Bilirubin 0.6 AST 20 ALT 13 Alkaline Phosphatase 112 Total Protein 5.6 L Albumin 2.0 L Active Medications Generic Name Dose Route Start Last Admin Trade Name Freq PRN Reason Stop Dose Admin Acetaminophen 325 mg 06/13/18 17:05 06/22/18 12:28 Tylenol - PO 325 mg Q8H PRN Administration PAIN LEVEL 6-10 Albuterol/Ipratropium 1 amp 06/13/18 18:27 11/10/18 14:49 Duoneb - NEB 1 amp Q6H PRN Administration SHORTNESS OF BREATH Calcium Carbonate 500 mg 06/22/18 10:00 06/24/18 10:11 Os-Madan 500mg - PO 500 mg BID TERRENCE Administration Cyclobenzaprine HCl 5 mg 06/18/18 11:44 06/23/18 09:31 Flexeril - PO 5 mg Q8H PRN Administration MUSCLE SPASMS Docusate Sodium 100 mg 06/21/18 12:58 Colace - PO Q8H PRN CONSTIPATION Emollient Ointment 1 applic 06/15/18 22:00 06/24/18 10:18 Aquaphor - TP 1 applic BID TERRENCE Administration Enoxaparin Sodium 80 mg 06/22/18 22:30 06/24/18 10:12 Lovenox - SQ 80 mg BID TERRENCE Administration Fentanyl 1 patch 06/21/18 13:00 06/24/18 12:28 Duragesic 12mcg Patch - TD 06/27/18 12:59 1 patch Q72H TERRENCE Administration IV Flush 10 ml 06/15/18 11:04 06/23/18 16:10 Luisa-Cath Flush IVPUSH 10 ml PRN PRN Administration FLUSH IV Flush 10 ml 06/16/18 00:22 Luisa-Cath Flush IVPUSH PRN PRN protocol, maintain patency IV Flush 10 ml 06/19/18 10:56 Luisa-Cath Flush IVPUSH PRN PRN FLUSH Ertapenem 1 gm/ Sodium 50 mls @ 100 mls/hr 06/21/18 12:00 06/24/18 10:18 Chloride IVPB 100 mls/hr DAILY TERRENCE Administration Lactobacillus Acidophilus 1 tab 06/22/18 10:15 06/24/18 10:11 Bacid - PO 1 tab DAILY TERRENCE Administration Loperamide HCl 2 mg 06/19/18 10:33 06/22/18 12:25 Imodium - PO 2 mg Q8H PRN Administration DIARRHEA Magnesium Oxide 400 mg 06/22/18 22:00 06/24/18 10:12 Mag-Ox - PO 400 mg BID TERRENCE Administration Midodrine 5 mg 06/21/18 14:00 06/24/18 10:11 Proamatine - PO 5 mg TID-MID TERRENCE Administration Miscellaneous 1 each 06/21/18 12:58 06/24/18 12:37 Duragesic Patch Waste TD 1 each PRN PRN Administration PAIN Multivitamins/Minerals/Vitamin C 1 tab 06/14/18 10:00 06/24/18 10:11 Tab-A-Vit - PO 1 tab DAILY TERRENCE Administration Non-Formulary Medication 1 each 06/14/18 16:00 06/24/18 10:12 Abacavir/Dolutegravir/Lamivudi [Triumeq Tablet] PO 1 each DAILY TERRENCE Administration Ondansetron HCl 8 mg 06/13/18 14:52 06/18/18 11:29 Zofran Injection IVPB 8 mg Q6H PRN Administration NAUSEA AND/OR VOMITING Phenazopyridine HCl 100 mg 06/22/18 18:30 06/24/18 08:07 Pyridium - PO 100 mg PC TERRENCE Administration Potassium Chloride 20 meq 06/20/18 10:45 06/24/18 10:12 K-Dur - PO 20 meq DAILY TERRENCE Administration Simethicone 80 mg 06/15/18 11:06 06/22/18 21:59 Mylicon - PO 80 mg Q4H PRN Administration GAS Tiotropium [place] 2 puff 06/16/18 10:15 06/24/18 10:18 Spiriva Respimat IH 2 puff DAILY TERRENCE Administration Valacyclovir HCl 500 mg 06/14/18 16:15 06/24/18 10:12 Valtrex - PO 500 mg DAILY TERRENCE Administration ASSESSMENT/PLAN: Patient is a 63 year old female with a significant past medical history of Vivas' s Palsy, HIV+ (follows at the [facility]), COPD, sarcoidosis and squamous cell anal cancer. She is s/p chemotherapy and 28 cycles of RT. Patient admitted under the medicine service for chemotherapy as she has too many comorbidities to manage as an outpatient. Oncology: Squamous cell anal cancer s/p 5-FU via right subclavian mediport Patient on Granix 480mcg daily, wbc now stable tolerated chemotherapy, being closely followed by her oncologist Encourage PO hydration Monitor daily labs GI: Newly incarcerated symptomatic supraumbilical hernia CT scan with IV contrast that showed wall thickening of the cecum, ascending colon and small bowel Pain managed, on abdominal binder Hernia reduced by surgeon, Dr. Shepherd, can be considered for minimal invasive operative repair (3-4 weeks). Diarrhea. on Immodium prn. stool cultures negative. /ID Urinary retention urine culture + for positive for lactose fermenting gnr prior hx of kleb esb. on contact precautions. started on ertapenem 1gm daily monitor intake and output Card: Hypotension On Midodrine 2.5 mg q 8 hrs per cardiology Pulm: COPD, history. not in exacerbation. duonebs prn ID: HIV. on Haart therapy. followed by Dr. Herndon Psyche: Anxiety, chronic. on klonopin On Klonopin bid prn fen po intake check electrolytes daily monitor nutrition. on ensure. dietary following prophy SCDs Physical therapy
[2018-06-24] MEDS: LOPERAMIDE HCL 2 MG CAPSULE PO PRN (13:48)
--- NOTE | 2018-06-24 14:23 | PN ---
Progress Note (short form) - Note Progress Note: alert urinated over 3 liters, less dysuria- almost resolved Vital Signs Period Temp Pulse Resp BP Sys/Wade Pulse Ox Last 24 Hr 97.9 F-98.2 F 91-106 18-20 90-94/54-56 95-95 cor-rrr lungs decreased bs at bases abd soft, much less abdominal discomfort ext trace edema CBC, BMP 06/24/18 06:00 06/24/18 06:00 Microbiology 06/21/18 11:55 Blood - Peripheral Venous Blood Culture - Preliminary NO GROWTH OBTAINED AFTER 72 HOURS, INCUBATION TO CONTINUE FOR 2 DAYS. 06/21/18 12:00 Blood - Peripheral Venous Blood Culture - Preliminary NO GROWTH OBTAINED AFTER 72 HOURS, INCUBATION TO CONTINUE FOR 2 DAYS. 06/19/18 18:45 Urine - Urine Castro Urine Culture - Final Klebsiella Pneumoniae - Esbl 06/16/18 12:50 Stool Salmonella/Shigella Culture - Final NO GROWTH OF SALMONELLA OR SHIGELLA SPECIES OBTAINED 06/16/18 12:50 Stool Campylobacter Culture - Final NO GROWTH OF CAMPYLOBACTER SPECIES OBTAINED 06/16/18 12:50 Stool Yersinia Culture - Final NO GROWTH OF YERSINIA SPECIES OBTAINED 06/16/18 12:50 Stool Vibrio Culture - Final NO GROWTH OF VIBRIO SPECIES OBTAINED 06/16/18 12:50 Stool Escherichia coli 0157 Culture - Final NO GROWTH OF E COLI 0157 OBTAINED 06/16/18 12:50 Stool Clostridium difficile Antigen (JENNIFER) - Final 06/16/18 12:50 Stool Clostridium difficile Toxin Assay - Final a/p UTI- kelb esbl continue ertapenem day #4 urinary retention-castro d/ra-is this secondary to the midodrine??-renal to evaluate- urine outoput improved abdominal pain- umbilical hernia- reduced at bedside, f/u surgery-will need elective surgery in the near future reports less pain continue with binder persistent hypotension - now on midodrine diarrhea- secondary to chemo= cdiff and cultures are negative- anal cancer completed chemo chemo per oncology HIV- continue art, continue valtrex leukopenia resolved -s/p granix contact isolation- history esbl Kleb d/w patient at length clinically improving Problem List - Problems (1) Anal cancer Code(s): C21.0 - MALIGNANT NEOPLASM OF ANUS, UNSPECIFIED (2) HIV (human immunodeficiency virus infection) Code(s): Z21 - ASYMPTOMATIC HUMAN IMMUNODEFICIENCY VIRUS INFECTION STATUS
--- NOTE | 2018-06-24 17:46 | PN ---
Progress Note (short form) - Note Progress Note: covering Problems 1. volume overload 2. HIV 3. Hep B 4. Hep C 5. HTN 6. COPD Active Medications Acetaminophen (Tylenol -) 325 mg PO Q8H PRN PRN Reason: PAIN LEVEL 6-10 Last Admin: 06/22/18 12:28 Dose: 325 mg Albuterol/Ipratropium (Duoneb -) 1 amp NEB Q6H PRN PRN Reason: SHORTNESS OF BREATH Last Admin: 06/18/18 14:49 Dose: 1 amp Calcium Carbonate (Os-Madan 500mg -) 500 mg PO BID [facility] Last Admin: 06/24/18 10:11 Dose: 500 mg Cyclobenzaprine HCl (Flexeril -) 5 mg PO Q8H PRN PRN Reason: MUSCLE SPASMS Last Admin: 06/23/18 09:31 Dose: 5 mg Docusate Sodium (Colace -) 100 mg PO Q8H PRN PRN Reason: CONSTIPATION Emollient Ointment (Aquaphor -) 1 applic TP BID [facility] Last Admin: 06/24/18 10:18 Dose: 1 applic Enoxaparin Sodium (Lovenox -) 80 mg SQ BID [facility] Last Admin: 06/24/18 10:12 Dose: 80 mg Fentanyl (Duragesic 12mcg Patch -) 1 patch TD Q72H [facility] Stop: 06/27/18 12:59 Last Admin: 06/24/18 12:28 Dose: 1 patch IV Flush (Luisa-Cath Flush) 10 ml IVPUSH PRN PRN PRN Reason: FLUSH Last Admin: 06/23/18 16:10 Dose: 10 ml IV Flush (Luisa-Cath Flush) 10 ml IVPUSH PRN PRN PRN Reason: protocol, maintain patency IV Flush (Luisa-Cath Flush) 10 ml IVPUSH PRN PRN PRN Reason: FLUSH Ertapenem 1 gm/ Sodium (Chloride) 50 mls @ 100 mls/hr IVPB DAILY [facility] Last Admin: 06/24/18 10:18 Dose: 100 mls/hr Lactobacillus Acidophilus (Bacid -) 1 tab PO DAILY [facility] Last Admin: 06/24/18 10:11 Dose: 1 tab Loperamide HCl (Imodium -) 2 mg PO Q8H PRN PRN Reason: DIARRHEA Last Admin: 06/24/18 13:48 Dose: 2 mg Magnesium Oxide (Mag-Ox -) 400 mg PO BID TERRENCE Last Admin: 06/24/18 10:12 Dose: 400 mg Midodrine (Proamatine -) 5 mg PO TID-MID [facility] Last Admin: 06/24/18 17:29 Dose: 5 mg Miscellaneous (Duragesic Patch Waste) 1 each TD PRN PRN PRN Reason: PAIN Last Admin: 06/24/18 12:37 Dose: 1 each Multivitamins/Minerals/Vitamin C (Tab-A-Vit -) 1 tab PO DAILY [facility] Last Admin: 06/24/18 10:11 Dose: 1 tab Non-Formulary Medication (Abacavir/Dolutegravir/Lamivudi [Triumeq Tablet]) 1 each PO DAILY [facility] Last Admin: 06/24/18 10:12 Dose: 1 each Ondansetron HCl (Zofran Injection) 8 mg IVPB Q6H PRN PRN Reason: NAUSEA AND/OR VOMITING Last Admin: 06/18/18 11:29 Dose: 8 mg Phenazopyridine HCl (Pyridium -) 100 mg PO PC TERRENCE Last Admin: 06/24/18 17:29 Dose: 100 mg Potassium Chloride (K-Dur -) 20 meq PO DAILY [facility] Last Admin: 06/24/18 10:12 Dose: 20 meq Simethicone (Mylicon -) 80 mg PO Q4H PRN PRN Reason: GAS Last Admin: 06/22/18 21:59 Dose: 80 mg Tiotropium [place] (Spiriva Respimat) 2 puff IH DAILY [facility] Last Admin: 06/24/18 10:18 Dose: 2 puff Valacyclovir HCl (Valtrex -) 500 mg PO DAILY [facility] Last Admin: 06/24/18 10:12 Dose: 500 mg Last Vital Signs Temp Pulse Resp BP Pulse Ox 97.9 F 101 H 20 93/58 L 95 06/24/18 15:52 06/24/18 15:52 06/24/18 15:52 06/24/18 15:52 06/24/18 09:00 CBC, BMP 06/24/18 06:00 06/24/18 06:00
--- NOTE | 2018-06-24 19:08 | PN ---
Progress Note (short form) - Note Progress Note: Patient seen and examined c/o diarrhea Last Vital Signs Temp Pulse Resp BP Pulse Ox 97.9 F 101 H 20 93/58 L 95 06/24/18 15:52 06/24/18 15:52 06/24/18 15:52 06/24/18 15:52 06/24/18 09:00 Cor: RSR, No murmurs, No gallops Lungs: Clear to P&A Abd: abdominal binder present Ext:No significant edema Abnormal Lab Results 06/24/18 06/24/18 06:00 06:00 WBC 3.7 L RBC 2.70 L Hgb 9.1 L Hct 27.9 L MCV 103.3 H RDW 17.8 H Plt Count 88 L Monocytes % 18.9 H D Potassium 3.4 L Anion Gap 5 L BUN 6 L Calcium 7.5 L Total Protein 5.6 L Albumin 2.0 L Active Medications Generic Name Dose Route Start Last Admin Trade Name Freq PRN Reason Stop Dose Admin Acetaminophen 325 mg 06/13/18 17:05 06/22/18 12:28 Tylenol - PO 325 mg Q8H PRN Administration PAIN LEVEL 6-10 Albuterol/Ipratropium 1 amp 06/13/18 18:27 06/18/18 14:49 Duoneb - NEB 1 amp Q6H PRN Administration SHORTNESS OF BREATH Calcium Carbonate 500 mg 06/22/18 10:00 06/24/18 10:11 Os-Madan 500mg - PO 500 mg BID TERRENCE Administration Cyclobenzaprine HCl 5 mg 06/18/18 11:44 06/23/18 09:31 Flexeril - PO 5 mg Q8H PRN Administration MUSCLE SPASMS Docusate Sodium 100 mg 06/21/18 12:58 Colace - PO Q8H PRN CONSTIPATION Emollient Ointment 1 applic 06/15/18 22:00 06/24/18 10:18 Aquaphor - TP 1 applic BID TERRENCE Administration Enoxaparin Sodium 80 mg 06/22/18 22:30 06/24/18 10:12 Lovenox - SQ 80 mg BID TERRENCE Administration Fentanyl 1 patch 06/21/18 13:00 06/24/18 12:28 Duragesic 12mcg Patch - TD 06/27/18 12:59 1 patch Q72H TERRENCE Administration IV Flush 10 ml 06/15/18 11:04 06/23/18 16:10 Luisa-Cath Flush IVPUSH 10 ml PRN PRN Administration FLUSH IV Flush 10 ml 06/16/18 00:22 Luisa-Cath Flush IVPUSH PRN PRN protocol, maintain patency IV Flush 10 ml 06/19/18 10:56 Luisa-Cath Flush IVPUSH PRN PRN FLUSH Ertapenem 1 gm/ Sodium 50 mls @ 100 mls/hr 06/21/18 12:00 06/24/18 10:18 Chloride IVPB 100 mls/hr DAILY TERRENCE Administration Lactobacillus Acidophilus 1 tab 06/22/18 10:15 06/24/18 10:11 Bacid - PO 1 tab DAILY TERRENCE Administration Loperamide HCl 2 mg 06/19/18 10:33 06/24/18 13:48 Imodium - PO 2 mg Q8H PRN Administration DIARRHEA Magnesium Oxide 400 mg 06/22/18 22:00 06/24/18 10:12 Mag-Ox - PO 400 mg BID TERRENCE Administration Midodrine 5 mg 06/21/18 14:00 06/24/18 17:29 Proamatine - PO 5 mg TID-MID TERRENCE Administration Miscellaneous 1 each 06/21/18 12:58 06/24/18 12:37 Duragesic Patch Waste TD 1 each PRN PRN Administration PAIN Multivitamins/Minerals/Vitamin C 1 tab 06/14/18 10:00 06/24/18 10:11 Tab-A-Vit - PO 1 tab DAILY TERRENCE Administration Non-Formulary Medication 1 each 06/14/18 16:00 06/24/18 10:12 Abacavir/Dolutegravir/Lamivudi [Triumeq Tablet] PO 1 each DAILY TERRENCE Administration Ondansetron HCl 8 mg 06/13/18 14:52 06/18/18 11:29 Zofran Injection IVPB 8 mg Q6H PRN Administration NAUSEA AND/OR VOMITING Phenazopyridine HCl 100 mg 06/22/18 18:30 06/24/18 17:29 Pyridium - PO 100 mg PC TERRENCE Administration Potassium Chloride 20 meq 06/20/18 10:45 06/24/18 10:12 K-Dur - PO 20 meq DAILY TERRENCE Administration Simethicone 80 mg 06/15/18 11:06 06/22/18 21:59 Mylicon - PO 80 mg Q4H PRN Administration GAS Tiotropium [place] 2 puff 06/16/18 10:15 06/24/18 10:18 Spiriva Respimat IH 2 puff DAILY TERRENCE Administration Valacyclovir HCl 500 mg 06/14/18 16:15 06/24/18 10:12 Valtrex - PO 500 mg DAILY TERRENCE Administration A/P Anal Cancer HIV Hepatitis B Hepatitis C COPD Sarcoidosis of Lung HCC Liver Cirrhosis abdominal hernia --has a binder klebsiella UTI --on ertapenem diarrhea-- c.diff - will start imodium air in the bladder -- ? castro related seen by urology castro d/cd monitor platelets. on lovenox
[2018-06-24] MEDS: CYCLOBENZAPRINE HCL 10 MG TABLET (FP) PO PRN (22:32)
[2018-06-25] MEDS: oxyCODONE HCL 5 MG TABLET PO PRN ×2 (00:55→08:40)
[2018-06-25] MEDS ORDERED: INSULIN (NOVOLOG) ASPART 100 UNITS/ML 10ML VIAL ONE (07:34)
[2018-06-25 07:45] LABS: BASO % 0.4 % (0-2.0); EOS % 6.8 % (0-4.5); HEMATOCRIT 29.1 % (32.4-45.2); HEMOGLOBIN 9.4 GM/dL (10.7-15.3); LYMPH % 22.6 % (8-40); MCH 33.6 pg (25.7-33.7); MCHC 32.3 g/dl (32.0-36.0); MEAN CELL VOLUME 104.2 fl (80-96); MEAN PLT VOLUME 8.7 fl (7.5-11.1); MONO % 25.6 % (3.8-10.2); NEUT % 44.6 % (42.8-82.8); PLATELET COUNT 87 K/MM3 (134-434); RBC 2.79 M/mm3 (3.60-5.2); WHITE BLOOD COUNT 2.4 K/mm3 (4.0-10.0)
[2018-06-25 08:06] LABS: ALK PHOS 115 U/L (45-117); ANION GAP 8 MMOL/L (8-16); BILIRUBIN,TOTAL 0.6 mg/dL (0.2-1); BLOOD UREA NITROGEN 8 mg/dL (7-18); CALCIUM 7.4 mg/dL (8.5-10.1); CHLORIDE 104 mmol/L (98-107); CO2 27 mmol/L (21-32); CREATININE 0.8 mg/dL (0.55-1.3); GLUCOSE,RANDOM 85 mg/dL (74-106); POTASSIUM 3.6 mmol/L (3.5-5.1); SGOT/AST 21 U/L (15-37); SGPT/ALT 14 U/L (13-61); SODIUM 139 mmol/L (136-145); TOT PROT 5.9 g/dl (6.4-8.2)
[2018-06-25] MEDS: PHENAZOPYRIDINE HCL 100 MG TABLET (FP) PO SCH ×3 (09:14→18:39)
[2018-06-25] MEDS: LACTOBACILLUS ACIDOPHILUS 1 TABLET PO SCH (09:16)
[2018-06-25] MEDS: MINERAL OIL/PET HY-PHL TOPICAL OINTMENT 454 GM JAR TP SCH ×2 (09:16→22:04)
[2018-06-25] MEDS: POTASSIUM CHLORIDE TABS 10 MEQ TABLET.ER (FP) PO SCH (09:17)
[2018-06-25] MEDS: ERTAPENEM SODIUM 1 GM in SODIUM CHLORIDE 50 ML IVPB SCH (09:17)
[2018-06-25] MEDS: ENOXAPARIN NA (PORCINE) 80 MG/0.8 ML DISP.SYRIN SQ SCH ×2 (09:18→21:58)
[2018-06-25] MEDS: MAGNESIUM OXIDE 400 MG TABLET (FP) PO SCH ×2 (09:18→21:58)
[2018-06-25] MEDS: MIDODRINE HCL 5 MG TABLET PO SCH ×3 (09:19→18:00)
[2018-06-25] MEDS: CALCIUM (OYSTER SHELL) 500 MG TABLET (FP) PO SCH ×2 (09:19→21:58)
[2018-06-25] MEDS: TIOTROPIUM BROMIDE 2.5 MCG (SPIRIVA) RESPIMAT INHALER IH SCH (09:19)
[2018-06-25] MEDS: valACYclovir HCL 500 MG TABLET (FP) PO SCH (09:19)
[2018-06-25] MEDS: MULTIVITAMINS (DAILY MVI) TABLET (FP) PO SCH (09:19)
--- NOTE | 2018-06-25 09:19 | PN ---
Physical Exam: SUBJECTIVE: Patient seen and examined OBJECTIVE: afebrile, having chills will initate septic workup and monitor vitals q4 - blood culture via port. consider port removal if no longer in use lactic acid elevated, iv bolus x 1, then repeat lactic acid. Vital Signs Period Temp Pulse Resp BP Sys/Wade Pulse Ox Last 24 Hr 97.9 F-98.4 F 91-111 18-20 85-100/50-61 97 GENERAL: awake and alert HEAD: Normal with no signs of trauma. EYES: Pupils equal, round and reactive to light, extraocular movements intact, sclera anicteric, conjunctiva clear. No lid lag. EARS, NOSE, THROAT: Ears normal, nares patent, oropharynx clear without exudates. Moist mucous membranes. NECK: Normal range of motion, supple without lymphadenopathy, JVD, or masses. LUNGS: diminished bilaterally, no wheezing. tolerating room air. HEART: Regular rate and rhythm, normal S1 and S2 without murmur, rub or gallop. ABDOMEN: distended, + bowel sounds-on abdominal binder for hernia UPPER EXTREMITIES: No clubbing. No peripheral edema. LOWER EXTREMITIES: No calf tenderness. No peripheral edema. NEUROLOGICAL: Normal speech. PSYCHIATRIC: Cooperative. Good eye contact. Appropriate mood and affect. SKIN: Warm, dry, normal turgor, no rashes or lesions noted, normal capillary refill. Laboratory Results - last 24 hr 06/25/18 06/25/18 06:00 06:00 WBC 2.4 L RBC 2.79 L Hgb 9.4 L Hct 29.1 L MCV 104.2 H MCH 33.6 MCHC 32.3 RDW 18.0 H Plt Count 87 L MPV 8.7 Absolute Neuts (auto) 1.1 L Neutrophils % 44.6 D Lymphocytes % 22.6 D Monocytes % 25.6 H Eosinophils % 6.8 H D Basophils % 0.4 Nucleated RBC % 0 Sodium 139 Potassium 3.6 Chloride 104 Carbon Dioxide 27 Anion Gap 8 BUN 8 Creatinine 0.8 Creat Clearance w eGFR > 60 Random Glucose 85 Calcium 7.4 L Total Bilirubin 0.6 AST 21 ALT 14 Alkaline Phosphatase 115 Total Protein 5.9 L Albumin 2.0 L Active Medications Generic Name Dose Route Start Last Admin Trade Name Freq PRN Reason Stop Dose Admin Acetaminophen 325 mg 06/13/18 17:05 06/22/18 12:28 Tylenol - PO 325 mg Q8H PRN Administration PAIN LEVEL 6-10 Albuterol/Ipratropium 1 amp 06/13/18 18:27 06/18/18 14:49 Duoneb - NEB 1 amp Q6H PRN Administration SHORTNESS OF BREATH Calcium Carbonate 500 mg 06/22/18 10:00 06/24/18 22:30 Os-Madan 500mg - PO 500 mg BID TERRENCE Administration Cyclobenzaprine HCl 5 mg 06/18/18 11:44 06/24/18 22:32 Flexeril - PO 5 mg Q8H PRN Administration MUSCLE SPASMS Docusate Sodium 100 mg 06/21/18 12:58 Colace - PO Q8H PRN CONSTIPATION Emollient Ointment 1 applic 06/15/18 22:00 06/24/18 22:30 Aquaphor - TP 1 applic BID TERRENCE Administration Enoxaparin Sodium 80 mg 06/22/18 22:30 06/24/18 22:30 Lovenox - SQ 80 mg BID TERRENCE Administration Fentanyl 1 patch 06/21/18 13:00 06/24/18 12:28 Duragesic 12mcg Patch - TD 06/27/18 12:59 1 patch Q72H TERRENCE Administration IV Flush 10 ml 06/15/18 11:04 06/23/18 16:10 Luisa-Cath Flush IVPUSH 10 ml PRN PRN Administration FLUSH IV Flush 10 ml 06/16/18 00:22 Luisa-Cath Flush IVPUSH PRN PRN protocol, maintain patency IV Flush 10 ml 06/19/18 10:56 Luisa-Cath Flush IVPUSH PRN PRN FLUSH Ertapenem 1 gm/ Sodium 50 mls @ 100 mls/hr 06/21/18 12:00 06/24/18 10:18 Chloride IVPB 100 mls/hr DAILY TERRENCE Administration Lactobacillus Acidophilus 1 tab 06/22/18 10:15 06/24/18 10:11 Bacid - PO 1 tab DAILY TERRENCE Administration Loperamide HCl 2 mg 06/19/18 10:33 06/24/18 13:48 Imodium - PO 2 mg Q8H PRN Administration DIARRHEA Magnesium Oxide 400 mg 06/22/18 22:00 06/24/18 22:30 Mag-Ox - PO 400 mg BID TERRENCE Administration Midodrine 5 mg 06/21/18 14:00 06/24/18 17:29 Proamatine - PO 5 mg TID-MID TERRENCE Administration Miscellaneous 1 each 06/21/18 12:58 06/24/18 12:37 Duragesic Patch Waste TD 1 each PRN PRN Administration PAIN Multivitamins/Minerals/Vitamin C 1 tab 06/14/18 10:00 06/24/18 10:11 Tab-A-Vit - PO 1 tab DAILY [facility]ENCE Administration Non-Formulary Medication 1 each 06/14/18 16:00 06/24/18 10:12 Abacavir/Dolutegravir/Lamivudi [Triumeq Tablet] PO 1 each DAILY [facility] Administration Ondansetron HCl 8 mg 06/13/18 14:52 06/18/18 11:29 Zofran Injection IVPB 8 mg Q6H PRN Administration NAUSEA AND/OR VOMITING Oxycodone HCl 10 mg 06/25/18 00:11 06/25/18 08:40 Roxicodone - PO 10 mg Q8H PRN Administration PAIN LEVEL 6-10 Phenazopyridine HCl 100 mg 06/22/18 18:30 06/24/18 17:29 Pyridium - PO 100 mg PC TERRENCE Administration Potassium Chloride 20 meq 06/20/18 10:45 06/24/18 10:12 K-Dur - PO 20 meq DAILY [facility]ERRENCE Administration Simethicone 80 mg 06/15/18 11:06 06/22/18 21:59 Mylicon - PO 80 mg Q4H PRN Administration GAS Tiotropium [place] 2 puff 06/16/18 10:15 06/24/18 10:18 Spiriva Respimat IH 2 puff DAILY TERRENCE Administration Valacyclovir HCl 500 mg 06/14/18 16:15 06/24/18 10:12 Valtrex - PO 500 mg DAILY [facility]ERRENCE Administration ASSESSMENT/PLAN: Patient is a 63 year old female with a significant past medical history of Vivas' s Palsy, HIV+ (follows at the [facility]), COPD, sarcoidosis and squamous cell anal cancer. She is s/p chemotherapy and 28 cycles of RT. Patient admitted under the medicine service for chemotherapy as she has too many comorbidities to manage as an outpatient. Oncology: Squamous cell anal cancer s/p 5-FU via right subclavian mediport Patient on Granix 480mcg daily, wbc now stable GI: Newly incarcerated symptomatic supraumbilical hernia Hernia reduced by surgeon, Dr. Shepherd, can be considered for minimal invasive operative repair (3-4 weeks). Diarrhea. on Immodium prn. stool cultures negative. /ID Urinary retention castro removed. no issues urinating reported. on ertapenem 1gm daily for kleb esbl monitor intake and output Card: Hypotension On Midodrine 2.5 mg q 8 hrs per cardiology Pulm: COPD, history. not in exacerbation. duonebs prn ID: HIV. on Haart therapy. followed by Dr. Herndon Rule out sepsis. having chills today. initiate septic workup. found to have elevated lactic acid. bolus ivf and repeat lactic acid. ID following. Psyche: Anxiety, chronic. on klonopin On Klonopin bid prn fen po intake check electrolytes daily monitor nutrition. on ensure. dietary following prophy SCDs Physical therapy Visit type - Emergency Visit Emergency Visit: Yes ED Registration Date: 06/13/18 Care time: The patient presented to the Emergency Department on the above date and was hospitalized for further evaluation of their emergent condition. - New Patient This patient is new to me today: No - Critical Care Critical Care patient: No - Discharge Referral Referred to [facility] No
[2018-06-25] MEDS: LOPERAMIDE HCL 2 MG CAPSULE PO PRN (11:16)
[2018-06-25 12:16] LABS: ANISOCYTOSIS 1+; MACROCYTOSIS 1+; PLATELET ESTIMATE DECREASED
[2018-06-25 12:52] LABS: MAGNESIUM 1.8 mg/dL (1.8-2.4)
--- NOTE | 2018-06-25 13:22 | PN ---
Progress Note (short form) - Note Progress Note: alert reports diarrhea this am urine is dark but less dysuria reports feeling chilly- no rigors has been feeling like this all week Vital Signs Period Temp Pulse Resp BP Sys/Wade Pulse Ox Last 24 Hr 97.9 F-98.4 F 91-111 20-20 85-100/50-61 97 port no erythema cor-rrr lungs clear abd soft, periumbilical discomfort unchanged, no suprapubic pain ext less edema CBC, BMP 06/25/18 06:00 06/25/18 06:00 Microbiology 06/21/18 11:55 Blood - Peripheral Venous Blood Culture - Preliminary NO GROWTH OBTAINED AFTER 96 HOURS, INCUBATION TO CONTINUE FOR 1 DAYS. 06/21/18 12:00 Blood - Peripheral Venous Blood Culture - Preliminary NO GROWTH OBTAINED AFTER 96 HOURS, INCUBATION TO CONTINUE FOR 1 DAYS. 06/19/18 18:45 Urine - Urine Castro Urine Culture - Final Klebsiella Pneumoniae - Esbl 06/16/18 12:50 Stool Salmonella/Shigella Culture - Final NO GROWTH OF SALMONELLA OR SHIGELLA SPECIES OBTAINED 06/16/18 12:50 Stool Campylobacter Culture - Final NO GROWTH OF CAMPYLOBACTER SPECIES OBTAINED 06/16/18 12:50 Stool Yersinia Culture - Final NO GROWTH OF YERSINIA SPECIES OBTAINED 06/16/18 12:50 Stool Vibrio Culture - Final NO GROWTH OF VIBRIO SPECIES OBTAINED 06/16/18 12:50 Stool Escherichia coli 0157 Culture - Final NO GROWTH OF E COLI 0157 OBTAINED 06/16/18 12:50 Stool Clostridium difficile Antigen (JENNIFER) - Final 06/16/18 12:50 Stool Clostridium difficile Toxin Assay - Final a/p chills-was recultured, would get stool cdiff as well as she is on antibiotics UTI- kelb esbl continue ertapenem day #5 urinary retention-castro d/ra-is this secondary to the midodrine??-repeat bladder scan today abdominal pain- umbilical hernia- reduced at bedside, f/u surgery-will need elective surgery in the near future reports less pain continue with binder persistent hypotension - now on midodrine anal cancer completed chemo chemo per oncology HIV- continue art, continue valtrex leukopenia resolved -s/p granix contact isolation- history esbl Kleb Problem List - Problems (1) Anal cancer Code(s): C21.0 - MALIGNANT NEOPLASM OF ANUS, UNSPECIFIED (2) HIV (human immunodeficiency virus infection) Code(s): Z21 - ASYMPTOMATIC HUMAN IMMUNODEFICIENCY VIRUS INFECTION STATUS
[2018-06-25 13:56] LABS: URINE APPEARANCE CLEAR; URINE BILIRUBIN NEGATIVE (<2.0 mg/dL); URINE COLOR AMBER; URINE GLUCOSE (UA) NEGATIVE (NEGATIVE); URINE KETONE NEGATIVE (NEGATIVE); URINE LEUK ESTERASE NEGATIVE (NEGATIVE); URINE NITRITE POSITIVE (NEGATIVE); URINE PROTEIN 2+ (NEGATIVE); URINE UROBILINOGEN 4.0 E.U/dl mg/dL (0.2-1.0)
[2018-06-25 13:58] LABS: CALCIUM OXALATE CRYSTALS RARE /hpf (NONE SEEN); EPI CELLS RARE /HPF (FEW); URINE MUCUS FEW
[2018-06-25] MEDS ORDERED: SODIUM CHLORIDE 1,000 ML IV STA (14:08)
--- NOTE | 2018-06-25 15:17 | PN ---
Progress Note (short form) - Note Progress Note: covering Problems 1. volume overload 2. HIV 3. Hep B 4. Hep C 5. HTN 6. COPD Current Medications Acetaminophen (Tylenol -) 325 mg PO Q8H PRN PRN Reason: PAIN LEVEL 6-10 Last Admin: 06/22/18 12:28 Dose: 325 mg Albuterol/Ipratropium (Duoneb -) 1 amp NEB Q6H PRN PRN Reason: SHORTNESS OF BREATH Last Admin: 06/18/18 14:49 Dose: 1 amp Calcium Carbonate (Os-Madan 500mg -) 500 mg PO BID [facility] Last Admin: 06/25/18 09:19 Dose: 500 mg Cyclobenzaprine HCl (Flexeril -) 5 mg PO Q8H PRN PRN Reason: MUSCLE SPASMS Last Admin: 06/24/18 22:32 Dose: 5 mg Docusate Sodium (Colace -) 100 mg PO Q8H PRN PRN Reason: CONSTIPATION Emollient Ointment (Aquaphor -) 1 applic TP BID [facility] Last Admin: 06/25/18 09:16 Dose: 1 applic Enoxaparin Sodium (Lovenox -) 80 mg SQ BID [facility] Last Admin: 06/25/18 09:18 Dose: 80 mg Fentanyl (Duragesic 12mcg Patch -) 1 patch TD Q72H [facility] Stop: 06/27/18 12:59 Last Admin: 06/24/18 12:28 Dose: 1 patch IV Flush (Luisa-Cath Flush) 10 ml IVPUSH PRN PRN PRN Reason: FLUSH Last Admin: 06/23/18 16:10 Dose: 10 ml IV Flush (Luisa-Cath Flush) 10 ml IVPUSH PRN PRN PRN Reason: protocol, maintain patency IV Flush (Luisa-Cath Flush) 10 ml IVPUSH PRN PRN PRN Reason: FLUSH Ertapenem 1 gm/ Sodium (Chloride) 50 mls @ 100 mls/hr IVPB DAILY [facility] Last Admin: 06/25/18 09:17 Dose: 100 mls/hr Lactobacillus Acidophilus (Bacid -) 1 tab PO DAILY [facility] Last Admin: 06/25/18 09:16 Dose: 1 tab Loperamide HCl (Imodium -) 2 mg PO Q8H PRN PRN Reason: DIARRHEA Last Admin: 06/25/18 11:16 Dose: 2 mg Magnesium Oxide (Mag-Ox -) 400 mg PO BID [facility]ERR[facility] Last Admin: 06/25/18 09:18 Dose: 400 mg Midodrine (Proamatine -) 5 mg PO TID-MID [facility] Last Admin: 06/25/18 09:19 Dose: 5 mg Miscellaneous (Duragesic Patch Waste) 1 each TD PRN PRN PRN Reason: PAIN Last Admin: 06/24/18 12:37 Dose: 1 each Multivitamins/Minerals/Vitamin C (Tab-A-Vit -) 1 tab PO DAILY [facility] Last Admin: 06/25/18 09:19 Dose: 1 tab Non-Formulary Medication (Abacavir/Dolutegravir/Lamivudi [Triumeq Tablet]) 1 each PO DAILY [facility] Last Admin: 06/25/18 09:15 Dose: 1 each Ondansetron HCl (Zofran Injection) 8 mg IVPB Q6H PRN PRN Reason: NAUSEA AND/OR VOMITING Last Admin: 06/18/18 11:29 Dose: 8 mg Oxycodone HCl (Roxicodone -) 10 mg PO Q8H PRN PRN Reason: PAIN LEVEL 6-10 Last Admin: 06/25/18 08:40 Dose: 10 mg Phenazopyridine HCl (Pyridium -) 100 mg PO PC [facility] Last Admin: 06/25/18 09:14 Dose: 100 mg Potassium Chloride (K-Dur -) 20 meq PO DAILY [facility] Last Admin: 06/25/18 09:17 Dose: 20 meq Simethicone (Mylicon -) 80 mg PO Q4H PRN PRN Reason: GAS Last Admin: 06/22/18 21:59 Dose: 80 mg Tiotropium [place] (Spiriva Respimat) 2 puff IH DAILY [facility] Last Admin: 06/25/18 09:19 Dose: 2 puff Valacyclovir HCl (Valtrex -) 500 mg PO DAILY [facility] Last Admin: 06/25/18 09:19 Dose: 500 mg Last Vital Signs Temp Pulse Resp BP Pulse Ox 98.4 F 98 H 20 93/54 L 97 06/25/18 06:00 06/25/18 06:00 06/25/18 06:00 06/25/18 06:00 06/24/18 20:58 CBC, BMP 06/25/18 06:00 06/25/18 06:00 CBC, BMP 06/24/18 06:00 06/24/18 06:00 IMP renal function stable
--- NOTE | 2018-06-25 16:34 | PN ---
Progress Note, Physician Chief Complaint: Anal cancer, diarrhea History of Present Illness: Reports 3 episodes of diarrhea today, non-blood. No abdominal pain. - Current Medication List Current Medications: Active Medications Acetaminophen (Tylenol -) 325 mg PO Q8H PRN PRN Reason: PAIN LEVEL 6-10 Last Admin: 06/22/18 12:28 Dose: 325 mg Albuterol/Ipratropium (Duoneb -) 1 amp NEB Q6H PRN PRN Reason: SHORTNESS OF BREATH Last Admin: 06/18/18 14:49 Dose: 1 amp Calcium Carbonate (Os-Madan 500mg -) 500 mg PO BID [facility] Last Admin: 06/25/18 09:19 Dose: 500 mg Cyclobenzaprine HCl (Flexeril -) 5 mg PO Q8H PRN PRN Reason: MUSCLE SPASMS Last Admin: 06/24/18 22:32 Dose: 5 mg Docusate Sodium (Colace -) 100 mg PO Q8H PRN PRN Reason: CONSTIPATION Emollient Ointment (Aquaphor -) 1 applic TP BID [facility] Last Admin: 06/25/18 09:16 Dose: 1 applic Enoxaparin Sodium (Lovenox -) 80 mg SQ BID [facility] Last Admin: 06/25/18 09:18 Dose: 80 mg Fentanyl (Duragesic 12mcg Patch -) 1 patch TD Q72H [facility] Stop: 06/27/18 12:59 Last Admin: 06/24/18 12:28 Dose: 1 patch IV Flush (Luisa-Cath Flush) 10 ml IVPUSH PRN PRN PRN Reason: FLUSH Last Admin: 06/23/18 16:10 Dose: 10 ml IV Flush (Luisa-Cath Flush) 10 ml IVPUSH PRN PRN PRN Reason: protocol, maintain patency IV Flush (Luisa-Cath Flush) 10 ml IVPUSH PRN PRN PRN Reason: FLUSH Ertapenem 1 gm/ Sodium (Chloride) 50 mls @ 100 mls/hr IVPB DAILY [facility] Last Admin: 06/25/18 09:17 Dose: 100 mls/hr Lactobacillus Acidophilus (Bacid -) 1 tab PO DAILY [facility] Last Admin: 06/25/18 09:16 Dose: 1 tab Loperamide HCl (Imodium -) 2 mg PO Q8H PRN PRN Reason: DIARRHEA Last Admin: 06/25/18 11:16 Dose: 2 mg Magnesium Oxide (Mag-Ox -) 400 mg PO BID [facility] Last Admin: 06/25/18 09:18 Dose: 400 mg Midodrine (Proamatine -) 5 mg PO TID-MID [facility] Last Admin: 06/25/18 09:19 Dose: 5 mg Miscellaneous (Duragesic Patch Waste) 1 each TD PRN PRN PRN Reason: PAIN Last Admin: 06/24/18 12:37 Dose: 1 each Multivitamins/Minerals/Vitamin C (Tab-A-Vit -) 1 tab PO DAILY [facility] Last Admin: 06/25/18 09:19 Dose: 1 tab Non-Formulary Medication (Abacavir/Dolutegravir/Lamivudi [Triumeq Tablet]) 1 each PO DAILY [facility] Last Admin: 06/25/18 09:15 Dose: 1 each Ondansetron HCl (Zofran Injection) 8 mg IVPB Q6H PRN PRN Reason: NAUSEA AND/OR VOMITING Last Admin: 06/18/18 11:29 Dose: 8 mg Oxycodone HCl (Roxicodone -) 10 mg PO Q8H PRN PRN Reason: PAIN LEVEL 6-10 Last Admin: 06/25/18 08:40 Dose: 10 mg Phenazopyridine HCl (Pyridium -) 100 mg PO PC [facility] Last Admin: 06/25/18 09:14 Dose: 100 mg Potassium Chloride (K-Dur -) 20 meq PO DAILY [facility] Last Admin: 06/25/18 09:17 Dose: 20 meq Simethicone (Mylicon -) 80 mg PO Q4H PRN PRN Reason: GAS Last Admin: 06/22/18 21:59 Dose: 80 mg Tiotropium [place] (Spiriva Respimat) 2 puff IH DAILY [facility] Last Admin: 06/25/18 09:19 Dose: 2 puff Valacyclovir HCl (Valtrex -) 500 mg PO DAILY [facility] Last Admin: 06/25/18 09:19 Dose: 500 mg - Objective Vital Signs: Vital Signs Temperature 99.5 F 06/25/18 15:35 Pulse Rate 111 H 06/25/18 15:35 Respiratory Rate 20 06/25/18 15:35 Blood Pressure 93/54 L 06/25/18 15:35 O2 Sat by Pulse Oximetry (%) 97 06/24/18 20:58 Constitutional: Yes: No Distress Eyes: Yes: Conjunctiva Clear Cardiovascular: Yes: Regular Rate and Rhythm Respiratory: Yes: Regular, CTA Bilaterally Gastrointestinal: Yes: Soft. No: Palpable Mass, Tenderness, Epigastrium Extremities: Yes: WNL Neurological: Yes: Alert, Oriented Labs: CBC, BMP 06/25/18 06:00 06/25/18 06:00 INR, PTT INR 1.22 (0.83-1.09) H 06/15/18 15:30 Assessment/Plan 62F with HIV, HBV, HCV, COPD, cirrhosis and anal cancer on 5FU/mitomycin admitted with diarrhea. ciff, O+P neg Still with diarrhea, immodium helps Also has UTI on ertapenem ANC going down, may need to resume G-CSF if lower tomorrow, afebrile
[2018-06-25] MEDS ORDERED: PT OWN MED DRAWER 7, Y5N ONE ×2 (17:44→18:06)
[2018-06-26] MEDS: oxyCODONE HCL 5 MG TABLET PO PRN (01:20)
[2018-06-26] MEDS: CALCIUM (OYSTER SHELL) 500 MG TABLET (FP) PO SCH ×2 (09:30→21:36)
[2018-06-26] MEDS: ERTAPENEM SODIUM 1 GM in SODIUM CHLORIDE 50 ML IVPB SCH (09:30)
[2018-06-26] MEDS: POTASSIUM CHLORIDE TABS 10 MEQ TABLET.ER (FP) PO SCH (09:31)
[2018-06-26] MEDS: MINERAL OIL/PET HY-PHL TOPICAL OINTMENT 454 GM JAR TP SCH ×2 (09:31→21:42)
[2018-06-26] MEDS: PHENAZOPYRIDINE HCL 100 MG TABLET (FP) PO SCH ×3 (09:31→18:14)
[2018-06-26] MEDS: LACTOBACILLUS ACIDOPHILUS 1 TABLET PO SCH (09:31)
[2018-06-26] MEDS: MIDODRINE HCL 5 MG TABLET PO SCH ×2 (09:32→17:29)
[2018-06-26] MEDS: valACYclovir HCL 500 MG TABLET (FP) PO SCH (09:32)
[2018-06-26] MEDS: TIOTROPIUM BROMIDE 2.5 MCG (SPIRIVA) RESPIMAT INHALER IH SCH (09:32)
[2018-06-26] MEDS: MAGNESIUM OXIDE 400 MG TABLET (FP) PO SCH ×2 (09:32→21:35)
[2018-06-26] MEDS: MULTIVITAMINS (DAILY MVI) TABLET (FP) PO SCH (09:32)
[2018-06-26] MEDS: ENOXAPARIN NA (PORCINE) 80 MG/0.8 ML DISP.SYRIN SQ SCH ×2 (09:32→21:36)
[2018-06-26] MEDS ORDERED: PT OWN MED DRAWER 7, Y5N ONE ×2 (09:36→14:18)
--- NOTE | 2018-06-26 10:59 | PN ---
Progress Note (short form) - Note Progress Note: one episode diarrhea this am less dysuria still feels cold Vital Signs Period Temp Pulse Resp BP Sys/Wade Pulse Ox Last 24 Hr 97.9 F-99.5 F 98-111 20-20 93-99/54-63 97 cor-rrr lungs decreased bs at bases abd soft, +umbiical mass- tender to palpation no suprpubic discomfort ext +edema CBC, BMP 06/25/18 06:00 06/25/18 06:00 Microbiology 06/25/18 13:05 Urine - Urine Clean Catch Urine Culture - Final NO GROWTH OBTAINED 06/23/18 14:30 Urine - Urine Clean Catch Urine Culture - Final NO GROWTH OBTAINED 06/25/18 09:45 Blood - Peripheral Venous Blood Culture - Preliminary NO GROWTH OBTAINED AFTER 24 HOURS, INCUBATION TO CONTINUE FOR 4 DAYS. 06/25/18 09:40 Blood - Peripheral Venous Blood Culture - Preliminary NO GROWTH OBTAINED AFTER 24 HOURS, INCUBATION TO CONTINUE FOR 4 DAYS. 06/21/18 11:55 Blood - Peripheral Venous Blood Culture - Preliminary NO GROWTH OBTAINED AFTER 96 HOURS, INCUBATION TO CONTINUE FOR 1 DAYS. 06/21/18 12:00 Blood - Peripheral Venous Blood Culture - Preliminary NO GROWTH OBTAINED AFTER 96 HOURS, INCUBATION TO CONTINUE FOR 1 DAYS. 06/19/18 18:45 Urine - Urine Castro Urine Culture - Final Klebsiella Pneumoniae - Esbl 06/16/18 12:50 Stool Salmonella/Shigella Culture - Final NO GROWTH OF SALMONELLA OR SHIGELLA SPECIES OBTAINED 06/16/18 12:50 Stool Campylobacter Culture - Final NO GROWTH OF CAMPYLOBACTER SPECIES OBTAINED 06/16/18 12:50 Stool Yersinia Culture - Final NO GROWTH OF YERSINIA SPECIES OBTAINED 06/16/18 12:50 Stool Vibrio Culture - Final NO GROWTH OF VIBRIO SPECIES OBTAINED 06/16/18 12:50 Stool Escherichia coli 0157 Culture - Final NO GROWTH OF E COLI 0157 OBTAINED 06/16/18 12:50 Stool Clostridium difficile Antigen (JENNIFER) - Final 06/16/18 12:50 Stool Clostridium difficile Toxin Assay - Final a/p chills-was recultured, would get stool cdiff as well as she is on antibiotics UTI- kelb esbl continue ertapenem day #6 urinary retention-castro d/ra-is this secondary to the midodrine??-BP doesnot appear improved on midodrine- will d/w renal abdominal pain- umbilical hernia- reduced at bedside, f/u surgery-will need elective surgery in the near future reports less pain anal cancer completed chemo chemo per oncology HIV- continue art, continue valtrex leukopenia resolved -s/p granix-repeat cbc today to see if she needs more granix contact isolation- history esbl Kleb labs ordered d/w patient at length Problem List - Problems (1) Anal cancer Code(s): C21.0 - MALIGNANT NEOPLASM OF ANUS, UNSPECIFIED (2) HIV (human immunodeficiency virus infection) Code(s): Z21 - ASYMPTOMATIC HUMAN IMMUNODEFICIENCY VIRUS INFECTION STATUS
[2018-06-26 11:34] LABS: BASO % 0.4 % (0-2.0); EOS % 6.2 % (0-4.5); HEMATOCRIT 31.2 % (32.4-45.2); HEMOGLOBIN 10.3 GM/dL (10.7-15.3); LYMPH % 18.6 % (8-40); MCH 34.4 pg (25.7-33.7); MCHC 33.1 g/dl (32.0-36.0); MEAN PLT VOLUME 9.1 fl (7.5-11.1); MONO % 25.1 % (3.8-10.2); NEUT % 49.7 % (42.8-82.8); PLATELET COUNT 105 K/MM3 (134-434); RDW 17.7 % (11.6-15.6); WHITE BLOOD COUNT 2.9 K/mm3 (4.0-10.0)
[2018-06-26 12:32] LABS: ANION GAP 6 MMOL/L (8-16); BLOOD UREA NITROGEN 7 mg/dL (7-18); CALCIUM 7.4 mg/dL (8.5-10.1); CHLORIDE 106 mmol/L (98-107); CO2 28 mmol/L (21-32); CREATININE 0.8 mg/dL (0.55-1.3); GLUCOSE,RANDOM 97 mg/dL (74-106); SODIUM 139 mmol/L (136-145)
[2018-06-26 13:05] LABS: ANISOCYTOSIS 2+; MACROCYTOSIS 0; PLATELET ESTIMATE DECREASED
--- NOTE | 2018-06-26 17:55 | PN ---
Progress Note, Physician Chief Complaint: Anal cancer, diarrhea History of Present Illness: Sleeping peacefully. No acute events. - Current Medication List Current Medications: Active Medications Acetaminophen (Tylenol -) 325 mg PO Q8H PRN PRN Reason: PAIN LEVEL 6-10 Last Admin: 06/22/18 12:28 Dose: 325 mg Calcium Carbonate (Os-Madan 500mg -) 500 mg PO BID [facility] Last Admin: 06/26/18 09:30 Dose: 500 mg Cyclobenzaprine HCl (Flexeril -) 5 mg PO Q8H PRN PRN Reason: MUSCLE SPASMS Last Admin: 06/24/18 22:32 Dose: 5 mg Docusate Sodium (Colace -) 100 mg PO Q8H PRN PRN Reason: CONSTIPATION Emollient Ointment (Aquaphor -) 1 applic TP BID [facility] Last Admin: 06/26/18 09:31 Dose: 1 applic Enoxaparin Sodium (Lovenox -) 80 mg SQ BID [facility] Last Admin: 06/26/18 09:32 Dose: 80 mg Fentanyl (Duragesic 12mcg Patch -) 1 patch TD Q72H [facility] Stop: 06/27/18 12:59 Last Admin: 06/24/18 12:28 Dose: 1 patch IV Flush (Luisa-Cath Flush) 10 ml IVPUSH PRN PRN PRN Reason: FLUSH Last Admin: 06/23/18 16:10 Dose: 10 ml IV Flush (Luisa-Cath Flush) 10 ml IVPUSH PRN PRN PRN Reason: protocol, maintain patency IV Flush (Luisa-Cath Flush) 10 ml IVPUSH PRN PRN PRN Reason: FLUSH Ertapenem 1 gm/ Sodium (Chloride) 50 mls @ 100 mls/hr IVPB DAILY [facility] Last Admin: 06/26/18 09:30 Dose: 100 mls/hr Lactobacillus Acidophilus (Bacid -) 1 tab PO DAILY [facility] Last Admin: 06/26/18 09:31 Dose: 1 tab Loperamide HCl (Imodium -) 2 mg PO Q8H PRN PRN Reason: DIARRHEA Last Admin: 06/25/18 11:16 Dose: 2 mg Magnesium Oxide (Mag-Ox -) 400 mg PO BID [facility] Last Admin: 06/26/18 09:32 Dose: 400 mg Midodrine (Proamatine -) 5 mg PO TID-MID [facility] Last Admin: 06/26/18 17:29 Dose: 5 mg Miscellaneous (Duragesic Patch Waste) 1 each TD PRN PRN PRN Reason: PAIN Last Admin: 06/24/18 12:37 Dose: 1 each Multivitamins/Minerals/Vitamin C (Tab-A-Vit -) 1 tab PO DAILY [facility] Last Admin: 06/26/18 09:32 Dose: 1 tab Non-Formulary Medication (Abacavir/Dolutegravir/Lamivudi [Triumeq Tablet]) 1 each PO DAILY [facility] Last Admin: 06/26/18 09:31 Dose: 1 each Ondansetron HCl (Zofran Injection) 8 mg IVPB Q6H PRN PRN Reason: NAUSEA AND/OR VOMITING Last Admin: 06/18/18 11:29 Dose: 8 mg Oxycodone HCl (Roxicodone -) 10 mg PO Q8H PRN PRN Reason: PAIN LEVEL 6-10 Last Admin: 06/26/18 01:20 Dose: 10 mg Phenazopyridine HCl (Pyridium -) 100 mg PO PC [facility] Last Admin: 06/26/18 13:10 Dose: 100 mg Potassium Chloride (K-Dur -) 20 meq PO DAILY [facility] Last Admin: 06/26/18 09:31 Dose: 20 meq Simethicone (Mylicon -) 80 mg PO Q4H PRN PRN Reason: GAS Last Admin: 06/22/18 21:59 Dose: 80 mg Tiotropium [place] (Spiriva Respimat) 2 puff IH DAILY [facility] Last Admin: 06/26/18 09:32 Dose: 2 puff Valacyclovir HCl (Valtrex -) 500 mg PO DAILY [facility] Last Admin: 06/26/18 09:32 Dose: 500 mg - Objective Vital Signs: Vital Signs Temperature 99.5 F 06/26/18 16:59 Pulse Rate 111 H 06/26/18 16:59 Respiratory Rate 18 06/26/18 16:59 Blood Pressure 86/58 L 06/26/18 16:59 O2 Sat by Pulse Oximetry (%) 96 06/26/18 09:00 Constitutional: Yes: No Distress Respiratory: Yes: Regular Edema: No Labs: CBC, BMP 06/26/18 11:13 06/26/18 11:13 INR, PTT INR 1.22 (0.83-1.09) H 06/15/18 15:30 Assessment/Plan 62F with HIV, HBV, HCV, COPD, cirrhosis and anal cancer on 5FU/mitomycin admitted with diarrhea. ciff, O+P neg Still with diarrhea, immodium helps Also has UTI on ertapenem Counts improving. ANC 1.4 today from 1.1 yesterday, holding off neuporgen
--- NOTE | 2018-06-26 19:18 | PN ---
Progress Note (short form) - Note Progress Note: covering Problems 1. volume overload 2. HIV 3. Hep B 4. Hep C 5. HTN 6. COPD Current Medications Acetaminophen (Tylenol -) 325 mg PO Q8H PRN PRN Reason: PAIN LEVEL 6-10 Last Admin: 06/22/18 12:28 Dose: 325 mg Calcium Carbonate (Os-Madan 500mg -) 500 mg PO BID [facility] Last Admin: 06/26/18 09:30 Dose: 500 mg Cyclobenzaprine HCl (Flexeril -) 5 mg PO Q8H PRN PRN Reason: MUSCLE SPASMS Last Admin: 06/24/18 22:32 Dose: 5 mg Docusate Sodium (Colace -) 100 mg PO Q8H PRN PRN Reason: CONSTIPATION Emollient Ointment (Aquaphor -) 1 applic TP BID [facility] Last Admin: 06/26/18 09:31 Dose: 1 applic Enoxaparin Sodium (Lovenox -) 80 mg SQ BID [facility] Last Admin: 06/26/18 09:32 Dose: 80 mg Fentanyl (Duragesic 12mcg Patch -) 1 patch TD Q72H [facility] Stop: 06/27/18 12:59 Last Admin: 06/24/18 12:28 Dose: 1 patch IV Flush (Luisa-Cath Flush) 10 ml IVPUSH PRN PRN PRN Reason: FLUSH Last Admin: 06/23/18 16:10 Dose: 10 ml IV Flush (Luisa-Cath Flush) 10 ml IVPUSH PRN PRN PRN Reason: protocol, maintain patency IV Flush (Luisa-Cath Flush) 10 ml IVPUSH PRN PRN PRN Reason: FLUSH Ertapenem 1 gm/ Sodium (Chloride) 50 mls @ 100 mls/hr IVPB DAILY [facility] Last Admin: 06/26/18 09:30 Dose: 100 mls/hr Lactobacillus Acidophilus (Bacid -) 1 tab PO DAILY [facility] Last Admin: 06/26/18 09:31 Dose: 1 tab Loperamide HCl (Imodium -) 2 mg PO Q8H PRN PRN Reason: DIARRHEA Last Admin: 06/25/18 11:16 Dose: 2 mg Magnesium Oxide (Mag-Ox -) 400 mg PO BID [facility] Last Admin: 06/26/18 09:32 Dose: 400 mg Midodrine (Proamatine -) 5 mg PO TID-MID [facility] Last Admin: 06/26/18 17:29 Dose: 5 mg Miscellaneous (Duragesic Patch Waste) 1 each TD PRN PRN PRN Reason: PAIN Last Admin: 06/24/18 12:37 Dose: 1 each Multivitamins/Minerals/Vitamin C (Tab-A-Vit -) 1 tab PO DAILY [facility] Last Admin: 06/26/18 09:32 Dose: 1 tab Non-Formulary Medication (Abacavir/Dolutegravir/Lamivudi [Triumeq Tablet]) 1 each PO DAILY [facility] Last Admin: 06/26/18 09:31 Dose: 1 each Ondansetron HCl (Zofran Injection) 8 mg IVPB Q6H PRN PRN Reason: NAUSEA AND/OR VOMITING Last Admin: 06/18/18 11:29 Dose: 8 mg Oxycodone HCl (Roxicodone -) 10 mg PO Q8H PRN PRN Reason: PAIN LEVEL 6-10 Last Admin: 06/26/18 01:20 Dose: 10 mg Phenazopyridine HCl (Pyridium -) 100 mg PO PC [facility] Last Admin: 06/26/18 18:14 Dose: 100 mg Potassium Chloride (K-Dur -) 20 meq PO DAILY [facility] Last Admin: 06/26/18 09:31 Dose: 20 meq Simethicone (Mylicon -) 80 mg PO Q4H PRN PRN Reason: GAS Last Admin: 06/22/18 21:59 Dose: 80 mg Tiotropium [place] (Spiriva Respimat) 2 puff IH DAILY [facility] Last Admin: 06/26/18 09:32 Dose: 2 puff Valacyclovir HCl (Valtrex -) 500 mg PO DAILY [facility] Last Admin: 06/26/18 09:32 Dose: 500 mg Last Vital Signs Temp Pulse Resp BP Pulse Ox 99.5 F 111 H 18 86/58 L 96 06/26/18 16:59 06/26/18 16:59 06/26/18 16:59 06/26/18 16:59 06/26/18 09:00 lungs clear Heart reg abd soft nontender ext no edema CBC, BMP 06/26/18 11:13 06/26/18 11:13 CBC, BMP 06/25/18 06:00 06/25/18 06:00 CBC, BMP 06/24/18 06:00 06/24/18 06:00 IMP renal function stable electrolytes better
[2018-06-26] MEDS ORDERED: ALBUTEROL SO4 2.5/IPRATROPIUM 0.5 INH SOL 3 ML VIAL.NEB. NEB ONE (19:45)
--- NOTE | 2018-06-26 22:41 | PN ---
Physical Exam: SUBJECTIVE: Patient seen and examined at the bedside. still having some chills but states it is improving, and at times feels this way at home. had one episode of diarrhea today. OBJECTIVE: order for c diff by ID noted. stool seen on [place] appear loose, not watery blood and urine cultures ngtd lactic acidosis resolved chest xray unchanged Vital Signs Period Temp Pulse Resp BP Sys/Wade Pulse Ox Last 24 Hr 97.9 F-99.5 F 97-111 18-20 86-100/43-63 96 GENERAL: awake and alert HEAD: Normal with no signs of trauma. EYES: Pupils equal, round and reactive to light, extraocular movements intact, sclera anicteric, conjunctiva clear. No lid lag. EARS, NOSE, THROAT: Ears normal, nares patent, oropharynx clear without exudates. Moist mucous membranes. NECK: Normal range of motion, supple without lymphadenopathy, JVD, or masses. LUNGS: diminished bilaterally, no wheezing. tolerating room air. HEART: Regular rate and rhythm, normal S1 and S2 without murmur, rub or gallop. ABDOMEN: distended, + bowel sounds-on abdominal binder for hernia UPPER EXTREMITIES: No clubbing. No peripheral edema. LOWER EXTREMITIES: No calf tenderness. No peripheral edema. NEUROLOGICAL: Normal speech. PSYCHIATRIC: Cooperative. Good eye contact. Appropriate mood and affect. SKIN: Warm, dry, normal turgor, no rashes or lesions noted, normal capillary refill. Laboratory Results - last 24 hr 06/26/18 06/26/18 11:13 11:13 WBC 2.9 L RBC 3.00 L Hgb 10.3 L Hct 31.2 L MCV 104.0 H MCH 34.4 H MCHC 33.1 RDW 17.7 H Plt Count 105 L D MPV 9.1 Absolute Neuts (auto) 1.4 L Neutrophils % 49.7 Neutrophils % (Manual) 56.3 Band Neutrophils % 2.1 Lymphocytes % 18.6 Lymphocytes % (Manual) 7.3 L D Monocytes % 25.1 H Monocytes % (Manual) 26 H Eosinophils % 6.2 H Eosinophils % (Manual) 2.1 Basophils % 0.4 Basophils % (Manual) 0.0 Myelocytes % (Man) 1 D Promyelocytes % (Man) 0 Blast Cells % (Manual) 0 Nucleated RBC % 0 Metamyelocytes 1 D Hypochromia 1+ Platelet Estimate Decreased Polychromasia 0 Poikilocytosis 0 Anisocytosis 2+ Microcytosis 1+ Macrocytosis 0 Fragmented RBCs 1+ Sodium 139 Potassium 4.0 Chloride 106 Carbon Dioxide 28 Anion Gap 6 L BUN 7 Creatinine 0.8 Creat Clearance w eGFR > 60 Random Glucose 97 Calcium 7.4 L Active Medications Generic Name Dose Route Start Last Admin Trade Name Freq PRN Reason Stop Dose Admin Acetaminophen 325 mg 06/13/18 17:05 06/22/18 12:28 Tylenol - PO 325 mg Q8H PRN Administration PAIN LEVEL 6-10 Calcium Carbonate 500 mg 06/22/18 10:00 06/26/18 21:36 Os-Madan 500mg - PO 500 mg BID [facility] Administration Cyclobenzaprine HCl 5 mg 06/18/18 11:44 06/24/18 22:32 Flexeril - PO 5 mg Q8H PRN Administration MUSCLE SPASMS Docusate Sodium 100 mg 06/21/18 12:58 Colace - PO Q8H PRN CONSTIPATION Emollient Ointment 1 applic 06/15/18 22:00 06/26/18 21:42 Aquaphor - TP 1 applic BID [facility] Administration Enoxaparin Sodium 80 mg 06/22/18 22:30 06/26/18 21:36 Lovenox - SQ 80 mg BID [facility] Administration Fentanyl 1 patch 06/21/18 13:00 06/24/18 12:28 Duragesic 12mcg Patch - TD 06/27/18 12:59 1 patch Q72H [facility] Administration IV Flush 10 ml 06/15/18 11:04 06/23/18 16:10 Luisa-Cath Flush IVPUSH 10 ml PRN PRN Administration FLUSH IV Flush 10 ml 06/16/18 00:22 Luisa-Cath Flush IVPUSH PRN PRN protocol, maintain patency IV Flush 10 ml 06/19/18 10:56 Luisa-Cath Flush IVPUSH PRN PRN FLUSH Ertapenem 1 gm/ Sodium 50 mls @ 100 mls/hr 06/21/18 12:00 06/26/18 09:30 Chloride IVPB 100 mls/hr DAILY [facility] Administration Lactobacillus Acidophilus 1 tab 06/22/18 10:15 06/26/18 09:31 Bacid - PO 1 tab DAILY [facility] Administration Loperamide HCl 2 mg 06/19/18 10:33 06/25/18 11:16 Imodium - PO 2 mg Q8H PRN Administration DIARRHEA Magnesium Oxide 400 mg 06/22/18 22:00 06/26/18 21:35 Mag-Ox - PO 400 mg BID [facility] Administration Midodrine 5 mg 06/21/18 14:00 06/26/18 17:29 Proamatine - PO 5 mg TID-MID [facility] Administration Miscellaneous 1 each 06/21/18 12:58 06/24/18 12:37 Duragesic Patch Waste TD 1 each PRN PRN Administration PAIN Multivitamins/Minerals/Vitamin C 1 tab 06/14/18 10:00 06/26/18 09:32 Tab-A-Vit - PO 1 tab DAILY [facility] Administration Non-Formulary Medication 1 each 06/14/18 16:00 06/26/18 09:31 Abacavir/Dolutegravir/Lamivudi [Triumeq Tablet] PO 1 each DAILY [facility] Administration Ondansetron HCl 8 mg 06/13/18 14:52 06/18/18 11:29 Zofran Injection IVPB 8 mg Q6H PRN Administration NAUSEA AND/OR VOMITING Oxycodone HCl 10 mg 06/25/18 00:11 06/26/18 01:20 Roxicodone - PO 10 mg Q8H PRN Administration PAIN LEVEL 6-10 Phenazopyridine HCl 100 mg 06/22/18 18:30 06/26/18 18:14 Pyridium - PO 100 mg PC [facility] Administration Potassium Chloride 20 meq 06/20/18 10:45 06/26/18 09:31 K-Dur - PO 20 meq DAILY [facility] Administration Simethicone 80 mg 06/15/18 11:06 06/22/18 21:59 Mylicon - PO 80 mg Q4H PRN Administration GAS Tiotropium [place] 2 puff 06/16/18 10:15 06/26/18 09:32 Spiriva Respimat IH 2 puff DAILY [facility] Administration Valacyclovir HCl 500 mg 06/14/18 16:15 06/26/18 09:32 Valtrex - PO 500 mg DAILY [facility] Administration ASSESSMENT/PLAN: Patient is a 63 year old female with a significant past medical history of Vivas' s Palsy, HIV+ (follows at the [facility]), COPD, sarcoidosis and squamous cell anal cancer. She is s/p chemotherapy and 28 cycles of RT. Patient admitted under the medicine service for chemotherapy as she has too many comorbidities to manage as an outpatient. Oncology: Squamous cell anal cancer s/p 5-FU via right subclavian mediport Patient on Granix 480mcg daily, wbc 2.9 GI: Newly incarcerated symptomatic supraumbilical hernia Hernia reduced by surgeon, Dr. Shepherd, can be considered for minimal invasive operative repair (3-4 weeks). Diarrhea, 1 episode reported today. cdiff to be sent. /ID Urinary retention castro removed. no issues urinating reported. on ertapenem 1gm daily for kleb esbl monitor intake and output Card: Hypotension On Midodrine 2.5 mg q 8 hrs per cardiology Pulm: COPD, history. not in exacerbation. duonebs prn ID: HIV. on Haart therapy. followed by Dr. Herndon Rule out sepsis. still having chills today but improving, feels better today. blood and urine cultures ngtd, chest xray with no acute changes. lactic acidosis 2.7>1.5. ID following. Psyche: Anxiety, chronic. on klonopin On Klonopin bid prn fen po intake check electrolytes daily monitor nutrition. on ensure. dietary following prophy SCDs Physical therapy Visit type - Emergency Visit Emergency Visit: Yes ED Registration Date: 06/13/18 Care time: The patient presented to the Emergency Department on the above date and was hospitalized for further evaluation of their emergent condition. - New Patient This patient is new to me today: No - Critical Care Critical Care patient: No - Discharge Referral Referred to [facility] Med P.C.: No
[2018-06-27] MEDS: oxyCODONE HCL 5 MG TABLET PO PRN ×3 (00:31→21:23)
[2018-06-27 07:42] LABS: BASO % 0.7 % (0-2.0); EOS % 6.9 % (0-4.5); HEMATOCRIT 30.3 % (32.4-45.2); HEMOGLOBIN 9.8 GM/dL (10.7-15.3); LYMPH % 22.3 % (8-40); MCH 33.7 pg (25.7-33.7); MCHC 32.4 g/dl (32.0-36.0); MEAN PLT VOLUME 8.6 fl (7.5-11.1); MONO % 21.9 % (3.8-10.2); NEUT % 48.2 % (42.8-82.8); PLATELET COUNT 85 K/MM3 (134-434); RBC 2.91 M/mm3 (3.60-5.2); RDW 17.5 % (11.6-15.6); WHITE BLOOD COUNT 2.5 K/mm3 (4.0-10.0)
[2018-06-27 08:30] LABS: ALBUMIN 1.9 g/dl (3.4-5.0); ALK PHOS 101 U/L (45-117); ANION GAP 6 MMOL/L (8-16); BILIRUBIN,TOTAL 0.7 mg/dL (0.2-1); BLOOD UREA NITROGEN 7 mg/dL (7-18); CALCIUM 7.4 mg/dL (8.5-10.1); CHLORIDE 105 mmol/L (98-107); CO2 28 mmol/L (21-32); CREATININE 0.7 mg/dL (0.55-1.3); GLUCOSE,RANDOM 95 mg/dL (74-106); POTASSIUM 3.9 mmol/L (3.5-5.1); SGOT/AST 24 U/L (15-37); SGPT/ALT 14 U/L (13-61); SODIUM 139 mmol/L (136-145); TOT PROT 5.8 g/dl (6.4-8.2)
[2018-06-27] MEDS: PHENAZOPYRIDINE HCL 100 MG TABLET (FP) PO SCH ×3 (08:36→17:35)
[2018-06-27] MEDS ORDERED: PT OWN MED DRAWER 7, Y5N ONE (09:03)
[2018-06-27] MEDS: ENOXAPARIN NA (PORCINE) 80 MG/0.8 ML DISP.SYRIN SQ SCH ×2 (09:46→21:24)
[2018-06-27] MEDS: ERTAPENEM SODIUM 1 GM in SODIUM CHLORIDE 50 ML IVPB SCH (09:46)
[2018-06-27] MEDS: valACYclovir HCL 500 MG TABLET (FP) PO SCH (09:47)
[2018-06-27] MEDS: MULTIVITAMINS (DAILY MVI) TABLET (FP) PO SCH (09:47)
[2018-06-27] MEDS: CALCIUM (OYSTER SHELL) 500 MG TABLET (FP) PO SCH ×2 (09:47→21:24)
[2018-06-27] MEDS: LACTOBACILLUS ACIDOPHILUS 1 TABLET PO SCH (09:47)
[2018-06-27] MEDS: MAGNESIUM OXIDE 400 MG TABLET (FP) PO SCH ×2 (09:47→21:23)
[2018-06-27] MEDS: POTASSIUM CHLORIDE TABS 10 MEQ TABLET.ER (FP) PO SCH (09:47)
[2018-06-27] MEDS: MINERAL OIL/PET HY-PHL TOPICAL OINTMENT 454 GM JAR TP SCH ×2 (09:48→21:25)
[2018-06-27] MEDS: TIOTROPIUM BROMIDE 2.5 MCG (SPIRIVA) RESPIMAT INHALER IH SCH (09:48)
[2018-06-27] MEDS: MIDODRINE HCL 5 MG TABLET PO SCH ×2 (09:49→13:15)
[2018-06-27] MEDS: ACETAMINOPHEN 325 MG TABLET (FP) PO PRN ×2 (10:28→21:23)
[2018-06-27 11:02] LABS: ANISOCYTOSIS 1+; MACROCYTOSIS 1+; PLATELET ESTIMATE DECREASED
[2018-06-27] MEDS: LOPERAMIDE HCL 2 MG CAPSULE PO PRN (11:22)
[2018-06-27] MEDS ORDERED: FUROSEMIDE 40 MG/4 ML INJECTABLE VIAL IVPUSH ONE (14:18)
[2018-06-27] MEDS ORDERED: ALBUMIN HUMAN 25% 12.5 GM/50 ML VIAL IVPB ONE (14:30)
--- NOTE | 2018-06-27 15:23 | PN ---
Progress Note (short form) - Note Progress Note: feels better today oob and ambulating Vital Signs Period Temp Pulse Resp BP Sys/Wade Pulse Ox Last 24 Hr 97.8 F-99.5 F 95-111 18-18 83-98/53-62 95-96 cor-rrr lungs decreased bs at bases abd soft,ndistended tender umbilicus unchanged no suprapubic pain ext +edema CBC, BMP 06/27/18 06:30 06/27/18 06:30 Microbiology 06/25/18 09:45 Blood - Peripheral Venous Blood Culture - Preliminary NO GROWTH OBTAINED AFTER 48 HOURS, INCUBATION TO CONTINUE FOR 3 DAYS. 06/25/18 09:40 Blood - Peripheral Venous Blood Culture - Preliminary NO GROWTH OBTAINED AFTER 48 HOURS, INCUBATION TO CONTINUE FOR 3 DAYS. 06/21/18 11:55 Blood - Peripheral Venous Blood Culture - Final NO GROWTH AFTER 5 DAYS INCUBATION 06/21/18 12:00 Blood - Peripheral Venous Blood Culture - Final NO GROWTH AFTER 5 DAYS INCUBATION 06/25/18 13:05 Urine - Urine Clean Catch Urine Culture - Final NO GROWTH OBTAINED 06/23/18 14:30 Urine - Urine Clean Catch Urine Culture - Final NO GROWTH OBTAINED 06/19/18 18:45 Urine - Urine Castro Urine Culture - Final Klebsiella Pneumoniae - Esbl 06/16/18 12:50 Stool Salmonella/Shigella Culture - Final NO GROWTH OF SALMONELLA OR SHIGELLA SPECIES OBTAINED 06/16/18 12:50 Stool Campylobacter Culture - Final NO GROWTH OF CAMPYLOBACTER SPECIES OBTAINED 06/16/18 12:50 Stool Yersinia Culture - Final NO GROWTH OF YERSINIA SPECIES OBTAINED 06/16/18 12:50 Stool Vibrio Culture - Final NO GROWTH OF VIBRIO SPECIES OBTAINED 06/16/18 12:50 Stool Escherichia coli 0157 Culture - Final NO GROWTH OF E COLI 0157 OBTAINED 06/16/18 12:50 Stool Clostridium difficile Antigen (JENNIFER) - Final 06/16/18 12:50 Stool Clostridium difficile Toxin Assay - Final a/p chills-was recultured, would get stool cdiff as well as she is on antibiotics UTI- kleb esbl continue ertapenem day #7 urinary retention-castro d/ra-is this secondary to the midodrine??-BP doesnot appear improved on midodrine- cardiology to re-evaluate abdominal pain- umbilical hernia- reduced at bedside, f/u surgery-will need elective surgery in the near future reports less pain d/w Dr Shepherd- she needs to wear the binder anal cancer completed chemo chemo per oncology HIV- continue art, continue valtrex leukopenia resolved -s/p granix- contact isolation- history esbl Kleb d/w patient at length Problem List - Problems (1) Anal cancer Code(s): C21.0 - MALIGNANT NEOPLASM OF ANUS, UNSPECIFIED (2) HIV (human immunodeficiency virus infection) Code(s): Z21 - ASYMPTOMATIC HUMAN IMMUNODEFICIENCY VIRUS INFECTION STATUS
--- NOTE | 2018-06-27 15:46 | PN ---
Progress Note (short form) - Note Progress Note: s: no chest pain, palps, dyspnea, dizziness, lightheadedness Current Medications Acetaminophen (Tylenol -) 325 mg PO Q8H PRN PRN Reason: PAIN LEVEL 6-10 Last Admin: 06/27/18 10:28 Dose: 325 mg Calcium Carbonate (Os-Madan 500mg -) 500 mg PO BID [facility] Last Admin: 06/27/18 09:47 Dose: 500 mg Cyclobenzaprine HCl (Flexeril -) 5 mg PO Q8H PRN PRN Reason: MUSCLE SPASMS Last Admin: 06/24/18 22:32 Dose: 5 mg Docusate Sodium (Colace -) 100 mg PO Q8H PRN PRN Reason: CONSTIPATION Emollient Ointment (Aquaphor -) 1 applic TP BID [facility] Last Admin: 06/27/18 09:48 Dose: 1 applic Enoxaparin Sodium (Lovenox -) 80 mg SQ BID [facility] Last Admin: 06/27/18 09:46 Dose: 80 mg IV Flush (Luisa-Cath Flush) 10 ml IVPUSH PRN PRN PRN Reason: FLUSH Last Admin: 06/23/18 16:10 Dose: 10 ml IV Flush (Luisa-Cath Flush) 10 ml IVPUSH PRN PRN PRN Reason: protocol, maintain patency IV Flush (Luisa-Cath Flush) 10 ml IVPUSH PRN PRN PRN Reason: FLUSH Ertapenem 1 gm/ Sodium (Chloride) 50 mls @ 100 mls/hr IVPB DAILY [facility] Last Admin: 06/27/18 09:46 Dose: 100 mls/hr Lactobacillus Acidophilus (Bacid -) 1 tab PO DAILY [facility] Last Admin: 06/27/18 09:47 Dose: 1 tab Loperamide HCl (Imodium -) 2 mg PO Q8H PRN PRN Reason: DIARRHEA Last Admin: 06/27/18 11:22 Dose: 2 mg Magnesium Oxide (Mag-Ox -) 400 mg PO BID [facility] Last Admin: 06/27/18 09:47 Dose: 400 mg Midodrine (Proamatine -) 5 mg PO TID-MID [facility] Last Admin: 06/27/18 13:15 Dose: 5 mg Miscellaneous (Duragesic Patch Waste) 1 each TD PRN PRN PRN Reason: PAIN Last Admin: 06/24/18 12:37 Dose: 1 each Multivitamins/Minerals/Vitamin C (Tab-A-Vit -) 1 tab PO DAILY [facility] Last Admin: 06/27/18 09:47 Dose: 1 tab Non-Formulary Medication (Abacavir/Dolutegravir/Lamivudi [Triumeq Tablet]) 1 each PO DAILY [facility] Last Admin: 06/27/18 09:47 Dose: 1 each Ondansetron HCl (Zofran Injection) 8 mg IVPB Q6H PRN PRN Reason: NAUSEA AND/OR VOMITING Last Admin: 06/18/18 11:29 Dose: 8 mg Oxycodone HCl (Roxicodone -) 10 mg PO Q8H PRN PRN Reason: PAIN LEVEL 6-10 Last Admin: 06/27/18 10:27 Dose: 10 mg Phenazopyridine HCl (Pyridium -) 100 mg PO PC [facility] Last Admin: 06/27/18 13:15 Dose: 100 mg Potassium Chloride (K-Dur -) 20 meq PO DAILY [facility] Last Admin: 06/27/18 09:47 Dose: 20 meq Simethicone (Mylicon -) 80 mg PO Q4H PRN PRN Reason: GAS Last Admin: 06/22/18 21:59 Dose: 80 mg Tiotropium [place] (Spiriva Respimat) 2 puff IH DAILY [facility] Last Admin: 06/27/18 09:48 Dose: 2 puff Valacyclovir HCl (Valtrex -) 500 mg PO DAILY [facility] Last Admin: 06/27/18 09:47 Dose: 500 mg Vital Signs: Vital Signs Period Temp Pulse Resp BP Sys/Wade Pulse Ox Last 24 Hr 97.8 F-99.5 F 95-111 18-18 83-98/53-62 95-96 Constitutional: Yes: No Distress, Calm Eyes: Yes: Conjunctiva Clear Respiratory: mild bibasilar crackles, nl eff Gastrointestinal: Yes: Normal Bowel Sounds, Soft Cardiovascular: Yes: Regular Rate and Rhythm JVD: No Heart Sounds: Yes: S1, S2 Musculoskeletal: No: Back Pain Extremities: No: Cold, Cyanosis Edema: no le edema Integumentary: No: Jaundice diaphoresis Neurological: Yes: Alert, Oriented Assessment/Plan echo 06/2018: nl LV/RV, mild MR, mild TR Hypotension - nl EF on echo - pt reports chronically low bp, d/w Dr. Herndon as well, low BPs noted in clinic over years - got ivfs but then with some vol overload so dc ivfs 06/18 - ortho vitals unremarkable here - encouraged PO hydration, salt intake - appetite is improving after stoppnig chemo - bp has been low with midodrine and concern for urinary retention as side effect, although noted to have urinary retention 06/19 and midodrine started - trial off midodrine and observe BP squamous cell anal cancer - chemo and pain control per primary team, onc incarcerated hernia - GI and surgery following COPD - stable, manage per primary HIV - on HAART, ID following UTI, urinary retention: -on abx per ID -urinary retention began on 06/19 and midodrine started 06/20 may not be etiology of retention - observe off midodrine
--- NOTE | 2018-06-27 16:59 | PN ---
Progress Note, Physician History of Present Illness: Pt seen and examined at bedside. She is awake and appears comfortable. - Current Medication List Current Medications: Active Medications Acetaminophen (Tylenol -) 325 mg PO Q8H PRN PRN Reason: PAIN LEVEL 6-10 Last Admin: 06/27/18 10:28 Dose: 325 mg Calcium Carbonate (Os-Madan 500mg -) 500 mg PO BID [facility] Last Admin: 06/27/18 09:47 Dose: 500 mg Cyclobenzaprine HCl (Flexeril -) 5 mg PO Q8H PRN PRN Reason: MUSCLE SPASMS Last Admin: 06/24/18 22:32 Dose: 5 mg Docusate Sodium (Colace -) 100 mg PO Q8H PRN PRN Reason: CONSTIPATION Emollient Ointment (Aquaphor -) 1 applic TP BID [facility] Last Admin: 06/27/18 09:48 Dose: 1 applic Enoxaparin Sodium (Lovenox -) 80 mg SQ BID [facility] Last Admin: 06/27/18 09:46 Dose: 80 mg IV Flush (Luisa-Cath Flush) 10 ml IVPUSH PRN PRN PRN Reason: FLUSH Last Admin: 06/23/18 16:10 Dose: 10 ml IV Flush (Luisa-Cath Flush) 10 ml IVPUSH PRN PRN PRN Reason: protocol, maintain patency IV Flush (Luisa-Cath Flush) 10 ml IVPUSH PRN PRN PRN Reason: FLUSH Ertapenem 1 gm/ Sodium (Chloride) 50 mls @ 100 mls/hr IVPB DAILY [facility] Last Admin: 06/27/18 09:46 Dose: 100 mls/hr Lactobacillus Acidophilus (Bacid -) 1 tab PO DAILY [facility] Last Admin: 06/27/18 09:47 Dose: 1 tab Loperamide HCl (Imodium -) 2 mg PO Q8H PRN PRN Reason: DIARRHEA Last Admin: 06/27/18 11:22 Dose: 2 mg Magnesium Oxide (Mag-Ox -) 400 mg PO BID [facility] Last Admin: 06/27/18 09:47 Dose: 400 mg Miscellaneous (Duragesic Patch Waste) 1 each TD PRN PRN PRN Reason: PAIN Last Admin: 06/24/18 12:37 Dose: 1 each Multivitamins/Minerals/Vitamin C (Tab-A-Vit -) 1 tab PO DAILY [facility] Last Admin: 06/27/18 09:47 Dose: 1 tab Non-Formulary Medication (Abacavir/Dolutegravir/Lamivudi [Triumeq Tablet]) 1 each PO DAILY [facility] Last Admin: 06/27/18 09:47 Dose: 1 each Ondansetron HCl (Zofran Injection) 8 mg IVPB Q6H PRN PRN Reason: NAUSEA AND/OR VOMITING Last Admin: 06/18/18 11:29 Dose: 8 mg Oxycodone HCl (Roxicodone -) 10 mg PO Q8H PRN PRN Reason: PAIN LEVEL 6-10 Last Admin: 06/27/18 10:27 Dose: 10 mg Phenazopyridine HCl (Pyridium -) 100 mg PO PC [facility] Last Admin: 06/27/18 13:15 Dose: 100 mg Potassium Chloride (K-Dur -) 20 meq PO DAILY [facility] Last Admin: 06/27/18 09:47 Dose: 20 meq Simethicone (Mylicon -) 80 mg PO Q4H PRN PRN Reason: GAS Last Admin: 06/22/18 21:59 Dose: 80 mg Tiotropium [place] (Spiriva Respimat) 2 puff IH DAILY [facility] Last Admin: 06/27/18 09:48 Dose: 2 puff Valacyclovir HCl (Valtrex -) 500 mg PO DAILY [facility] Last Admin: 06/27/18 09:47 Dose: 500 mg - Objective Vital Signs: Vital Signs Temperature 98.2 F 06/27/18 13:48 Pulse Rate 95 H 06/27/18 13:48 Respiratory Rate 18 06/27/18 13:48 Blood Pressure 83/53 L 06/27/18 13:48 O2 Sat by Pulse Oximetry (%) 96 06/27/18 09:00 Constitutional: Yes: Calm Eyes: Yes: Conjunctiva Clear Cardiovascular: Yes: S1, S2 Respiratory: Yes: CTA Bilaterally Gastrointestinal: Yes: Soft, Ascites Musculoskeletal: Yes: WNL Edema: Yes Edema: LLE: 2+, RLE: 2+ Neurological: Yes: Oriented Psychiatric: Yes: Oriented Labs: CBC, BMP 06/27/18 06:30 06/27/18 06:30 INR, PTT INR 1.22 (0.83-1.09) H 06/15/18 15:30 Assessment/Plan Current Medications Generic Name Dose Route Start Last Admin Trade Name Freq PRN Reason Stop Dose Admin Acetaminophen 325 mg 06/13/18 17:05 06/27/18 10:28 Tylenol - PO 325 mg Q8H PRN Administration PAIN LEVEL 6-10 Calcium Carbonate 500 mg 06/22/18 10:00 06/27/18 09:47 Os-Madan 500mg - PO 500 mg BID [facility] Administration Cyclobenzaprine HCl 5 mg 06/18/18 11:44 06/24/18 22:32 Flexeril - PO 5 mg Q8H PRN Administration MUSCLE SPASMS Docusate Sodium 100 mg 06/21/18 12:58 Colace - PO Q8H PRN CONSTIPATION Emollient Ointment 1 applic 06/15/18 22:00 06/27/18 09:48 Aquaphor - TP 1 applic BID [facility] Administration Enoxaparin Sodium 80 mg 06/22/18 22:30 06/27/18 09:46 Lovenox - SQ 80 mg BID [facility] Administration IV Flush 10 ml 06/15/18 11:04 06/23/18 16:10 Luisa-Cath Flush IVPUSH 10 ml PRN PRN Administration FLUSH IV Flush 10 ml 06/16/18 00:22 Luisa-Cath Flush IVPUSH PRN PRN protocol, maintain patency IV Flush 10 ml 06/19/18 10:56 Luisa-Cath Flush IVPUSH PRN PRN FLUSH Ertapenem 1 gm/ Sodium 50 mls @ 100 mls/hr 06/21/18 12:00 06/27/18 09:46 Chloride IVPB 100 mls/hr DAILY [facility] Administration Lactobacillus Acidophilus 1 tab 06/22/18 10:15 06/27/18 09:47 Bacid - PO 1 tab DAILY [facility] Administration Loperamide HCl 2 mg 06/19/18 10:33 06/27/18 11:22 Imodium - PO 2 mg Q8H PRN Administration DIARRHEA Magnesium Oxide 400 mg 06/22/18 22:00 06/27/18 09:47 Mag-Ox - PO 400 mg BID [facility] Administration Miscellaneous 1 each 06/21/18 12:58 06/24/18 12:37 Duragesic Patch Waste TD 1 each PRN PRN Administration PAIN Multivitamins/Minerals/Vitamin C 1 tab 06/14/18 10:00 06/27/18 09:47 Tab-A-Vit - PO 1 tab DAILY [facility] Administration Non-Formulary Medication 1 each 06/14/18 16:00 06/27/18 09:47 Abacavir/Dolutegravir/Lamivudi [Triumeq Tablet] PO 1 each DAILY [facility] Administration Ondansetron HCl 8 mg 06/13/18 14:52 06/18/18 11:29 Zofran Injection IVPB 8 mg Q6H PRN Administration NAUSEA AND/OR VOMITING Oxycodone HCl 10 mg 06/25/18 00:11 06/27/18 10:27 Roxicodone - PO 10 mg Q8H PRN Administration PAIN LEVEL 6-10 Phenazopyridine HCl 100 mg 06/22/18 18:30 06/27/18 13:15 Pyridium - PO 100 mg PC [facility] Administration Potassium Chloride 20 meq 06/20/18 10:45 06/27/18 09:47 K-Dur - PO 20 meq DAILY [facility] Administration Simethicone 80 mg 06/15/18 11:06 06/22/18 21:59 Mylicon - PO 80 mg Q4H PRN Administration GAS Tiotropium [place] 2 puff 06/16/18 10:15 06/27/18 09:48 Spiriva Respimat IH 2 puff DAILY [facility] Administration Valacyclovir HCl 500 mg 06/14/18 16:15 06/27/18 09:47 Valtrex - PO 500 mg DAILY [facility] Administration Impression 1. volume overload 2. HIV 3. Hep B 4. Hep C 5. HTN 6. COPD Plan - will give lasix today - will give albumin - monitor renal function - she remains fluid overloaded
--- NOTE | 2018-06-27 18:03 | PN ---
Physical Exam: SUBJECTIVE: Patient seen and examined at the bedside. feels better, in no acute distress. denies abdominal pain. OBJECTIVE: Vital Signs Period Temp Pulse Resp BP Sys/Wade Pulse Ox Last 24 Hr 97.8 F-99 F 73-104 18-20 83-98/53-62 95-96 GENERAL: awake and alert HEAD: Normal with no signs of trauma. EYES: Pupils equal, round and reactive to light, extraocular movements intact, sclera anicteric, conjunctiva clear. No lid lag. EARS, NOSE, THROAT: Ears normal, nares patent, oropharynx clear without exudates. Moist mucous membranes. NECK: Normal range of motion, supple without lymphadenopathy, JVD, or masses. LUNGS: diminished bilaterally, no wheezing. tolerating room air. HEART: Regular rate and rhythm, normal S1 and S2 without murmur, rub or gallop. ABDOMEN: distended, + bowel sounds-on abdominal binder for hernia UPPER EXTREMITIES: No clubbing. No peripheral edema. LOWER EXTREMITIES: No calf tenderness. No peripheral edema. NEUROLOGICAL: Normal speech. PSYCHIATRIC: Cooperative. Good eye contact. Appropriate mood and affect. SKIN: Warm, dry, normal turgor, no rashes or lesions noted, normal capillary refill. Laboratory Results - last 24 hr 06/27/18 06/27/18 06:30 06:30 WBC 2.5 L RBC 2.91 L Hgb 9.8 L Hct 30.3 L MCV 104.0 H MCH 33.7 MCHC 32.4 RDW 17.5 H Plt Count 85 L MPV 8.6 Absolute Neuts (auto) 1.2 L Neutrophils % 48.2 Neutrophils % (Manual) 46.0 Band Neutrophils % 1.0 Lymphocytes % 22.3 Lymphocytes % (Manual) 20.0 D Monocytes % 21.9 H Monocytes % (Manual) 21 H Eosinophils % 6.9 H Eosinophils % (Manual) 10.0 H D Basophils % 0.7 Basophils % (Manual) 0.0 Myelocytes % (Man) 2 D Promyelocytes % (Man) 0 Blast Cells % (Manual) 0 Nucleated RBC % 0 Metamyelocytes 0 D Hypochromia 0 Platelet Estimate Decreased Polychromasia 0 Poikilocytosis 0 Anisocytosis 1+ Microcytosis 0 Macrocytosis 1+ Sodium 139 Potassium 3.9 Chloride 105 Carbon Dioxide 28 Anion Gap 6 L BUN 7 Creatinine 0.7 Creat Clearance w eGFR > 60 Random Glucose 95 Calcium 7.4 L Magnesium 2.0 Total Bilirubin 0.7 AST 24 ALT 14 Alkaline Phosphatase 101 Total Protein 5.8 L Albumin 1.9 L Active Medications Generic Name Dose Route Start Last Admin Trade Name Freq PRN Reason Stop Dose Admin Acetaminophen 325 mg 06/13/18 17:05 06/27/18 10:28 Tylenol - PO 325 mg Q8H PRN Administration PAIN LEVEL 6-10 Calcium Carbonate 500 mg 06/22/18 10:00 06/27/18 09:47 Os-Madan 500mg - PO 500 mg BID TERRENCE Administration Cyclobenzaprine HCl 5 mg 06/18/18 11:44 06/24/18 22:32 Flexeril - PO 5 mg Q8H PRN Administration MUSCLE SPASMS Docusate Sodium 100 mg 06/21/18 12:58 Colace - PO Q8H PRN CONSTIPATION Emollient Ointment 1 applic 06/15/18 22:00 06/27/18 09:48 Aquaphor - TP 1 applic BID TERRENCE Administration Enoxaparin Sodium 80 mg 06/22/18 22:30 06/27/18 09:46 Lovenox - SQ 80 mg BID TERRENCE Administration IV Flush 10 ml 06/15/18 11:04 06/23/18 16:10 Luisa-Cath Flush IVPUSH 10 ml PRN PRN Administration FLUSH IV Flush 10 ml 06/16/18 00:22 Luisa-Cath Flush IVPUSH PRN PRN protocol, maintain patency IV Flush 10 ml 06/19/18 10:56 Luisa-Cath Flush IVPUSH PRN PRN FLUSH Ertapenem 1 gm/ Sodium 50 mls @ 100 mls/hr 06/21/18 12:00 06/27/18 09:46 Chloride IVPB 100 mls/hr DAILY TERRENCE Administration Lactobacillus Acidophilus 1 tab 06/22/18 10:15 06/27/18 09:47 Bacid - PO 1 tab DAILY TERRENCE Administration Loperamide HCl 2 mg 06/19/18 10:33 06/27/18 11:22 Imodium - PO 2 mg Q8H PRN Administration DIARRHEA Magnesium Oxide 400 mg 06/22/18 22:00 06/27/18 09:47 Mag-Ox - PO 400 mg BID TERRENCE Administration Miscellaneous 1 each 06/21/18 12:58 06/24/18 12:37 Duragesic Patch Waste TD 1 each PRN PRN Administration PAIN Multivitamins/Minerals/Vitamin C 1 tab 06/14/18 10:00 06/27/18 09:47 Tab-A-Vit - PO 1 tab DAILY TERRENCE Administration Non-Formulary Medication 1 each 06/14/18 16:00 06/27/18 09:47 Abacavir/Dolutegravir/Lamivudi [Triumeq Tablet] PO 1 each DAILY TERRENCE Administration Ondansetron HCl 8 mg 06/13/18 14:52 06/18/18 11:29 Zofran Injection IVPB 8 mg Q6H PRN Administration NAUSEA AND/OR VOMITING Oxycodone HCl 10 mg 06/25/18 00:11 06/27/18 10:27 Roxicodone - PO 10 mg Q8H PRN Administration PAIN LEVEL 6-10 Phenazopyridine HCl 100 mg 06/22/18 18:30 06/27/18 17:35 Pyridium - PO 100 mg PC TERRENCE Administration Potassium Chloride 20 meq 06/20/18 10:45 06/27/18 09:47 K-Dur - PO 20 meq DAILY TERRENCE Administration Simethicone 80 mg 06/15/18 11:06 06/22/18 21:59 Mylicon - PO 80 mg Q4H PRN Administration GAS Tiotropium [place] 2 puff 06/16/18 10:15 06/27/18 09:48 Spiriva Respimat IH 2 puff DAILY TERRENCE Administration Valacyclovir HCl 500 mg 06/14/18 16:15 06/27/18 09:47 Valtrex - PO 500 mg DAILY TERRENCE Administration ASSESSMENT/PLAN: Patient is a 63 year old female with a significant past medical history of Vivas' s Palsy, HIV+ (follows at the [facility]), COPD, sarcoidosis and squamous cell anal cancer. She is s/p chemotherapy and 28 cycles of RT. Patient admitted under the medicine service for chemotherapy as she has too many comorbidities to manage as an outpatient. Oncology: Squamous cell anal cancer s/p 5-FU via right subclavian mediport Patient on Granix 480mcg daily, wbc 2.5 GI: Newly incarcerated symptomatic supraumbilical hernia Hernia reduced by surgeon, Dr. Shepherd, can be considered for minimal invasive operative repair (3-4 weeks). on abdominal binder. c diff. sent. /ID Urinary retention castro removed. no issues urinating reported. on ertapenem 1gm daily for kleb esbl Card: hypotension. patient on midodrine for hypotension. cardiology to follow up. Pulm: COPD, history. not in exacerbation. duonebs prn ID: HIV. on Haart therapy. followed by Dr. Herndon Rule out sepsis. sanford cultured. negative workup. feels better today. blood and urine cultures ngtd, chest xray with no acute changes. lactic acidosis 2.7>1.5. ID following. on ertepenem for ESBL UTI. on contact precautions. Psyche: Anxiety, chronic. on klonopin On Klonopin bid prn fen po intake check electrolytes daily monitor nutrition. on ensure. dietary following prophy SCDs Physical therapy Visit type - Emergency Visit Emergency Visit: Yes ED Registration Date: 06/13/18 Care time: The patient presented to the Emergency Department on the above date and was hospitalized for further evaluation of their emergent condition. - New Patient This patient is new to me today: No - Critical Care Critical Care patient: No - Discharge Referral Referred to [facility] Med P.C.: No
--- NOTE | 2018-06-27 21:07 | PN ---
Progress Note (short form) - Note Progress Note: Patient seen and examined Slowly improving AFVSS Cor: RSR, No murmurs, No gallops Lungs: Clear to P&A Abd: abdominal binder present Ext:No significant edema Labs/Meds reviewed A/P Anal Cancer HIV Hepatitis B Hepatitis C COPD Sarcoidosis of Lung HCC Liver Cirrhosis abdominal hernia --has a binder klebsiella UTI --on ertapenem diarrhea-- c.diff - imodium prn monitor platelets. on lovenox
[2018-06-28] MEDS: CYCLOBENZAPRINE HCL 10 MG TABLET (FP) PO PRN ×3 (02:29→22:38)
[2018-06-28] MEDS: ACETAMINOPHEN 325 MG TABLET (FP) PO PRN ×2 (06:49→16:14)
[2018-06-28] MEDS: oxyCODONE HCL 5 MG TABLET PO PRN ×2 (06:49→16:12)
[2018-06-28 07:03] LABS: BASO % 0.5 % (0-2.0); EOS % 6.4 % (0-4.5); HEMATOCRIT 27.9 % (32.4-45.2); HEMOGLOBIN 8.9 GM/dL (10.7-15.3); LYMPH % 21.8 % (8-40); MCH 33.5 pg (25.7-33.7); MEAN CELL VOLUME 104.6 fl (80-96); MEAN PLT VOLUME 8.7 fl (7.5-11.1); MONO % 18.6 % (3.8-10.2); NEUT % 52.7 % (42.8-82.8); PLATELET COUNT 77 K/MM3 (134-434); RBC 2.67 M/mm3 (3.60-5.2); RDW 17.4 % (11.6-15.6); WHITE BLOOD COUNT 2.4 K/mm3 (4.0-10.0)
[2018-06-28 07:37] LABS: ALK PHOS 86 U/L (45-117); ANION GAP 7 MMOL/L (8-16); BILIRUBIN,TOTAL 0.8 mg/dL (0.2-1); BLOOD UREA NITROGEN 7 mg/dL (7-18); CALCIUM 7.4 mg/dL (8.5-10.1); CHLORIDE 104 mmol/L (98-107); CO2 30 mmol/L (21-32); CREATININE 0.7 mg/dL (0.55-1.3); GLUCOSE,RANDOM 74 mg/dL (74-106); POTASSIUM 3.6 mmol/L (3.5-5.1); SGOT/AST 20 U/L (15-37); SGPT/ALT 13 U/L (13-61); SODIUM 141 mmol/L (136-145); TOT PROT 5.5 g/dl (6.4-8.2)
--- NOTE | 2018-06-28 08:37 | PN ---
Progress Note (short form) - Note Progress Note: Patient is feeling cold. has multiple blanket on her. As per nurse she was having diarrhea and stool for cdiff was collected. Vital Signs Temperature 98.6 F 06/28/18 06:00 Pulse Rate 99 H 06/28/18 06:00 Respiratory Rate 20 06/28/18 06:00 Blood Pressure 84/50 L 06/28/18 06:00 O2 Sat by Pulse Oximetry (%) 96 06/27/18 21:00 GENERAL: awake and alert HEAD: Normal with no signs of trauma. EYES: Pupils equal, round and reactive to light, extraocular movements intact, sclera anicteric, conjunctiva clear. EARS, NOSE, THROAT: Ears normal, oropharynx clear without exudates. Moist mucous membranes. NECK: Normal range of motion, supple without lymphadenopathy, JVD, or masses. LUNGS: diminished bilaterally, no wheezing. tolerating room air. HEART: Regular rate and rhythm, normal S1 and S2 without murmur, rub or gallop. ABDOMEN: distended, + bowel sounds-on abdominal binder for hernia EXTREMITIES: No calf tenderness. positive for edema 1 plus bl. NEUROLOGICAL: Normal speech. PSYCHIATRIC: Cooperative. Good eye contact. Appropriate mood and affect. SKIN: Warm, dry, normal turgor, no rashes or lesions noted, normal capillary refill. CBCD WBC 2.4 K/mm3 (4.0-10.0) L 06/28/18 06:30 RBC 2.67 M/mm3 (3.60-5.2) L 06/28/18 06:30 Hgb 8.9 GM/dL (10.7-15.3) L 06/28/18 06:30 Hct 27.9 % (32.4-45.2) L 06/28/18 06:30 MCV 104.6 fl (80-96) H 06/28/18 06:30 MCHC 32.0 g/dl (32.0-36.0) 06/28/18 06:30 RDW 17.4 % (11.6-15.6) H 06/28/18 06:30 Plt Count 77 K/MM3 (134-434) L 06/28/18 06:30 MPV 8.7 fl (7.5-11.1) 06/28/18 06:30 CMP Sodium 141 mmol/L (136-145) 06/28/18 06:30 Potassium 3.6 mmol/L (3.5-5.1) 06/28/18 06:30 Chloride 104 mmol/L (98-107) 06/28/18 06:30 Carbon Dioxide 30 mmol/L (21-32) 06/28/18 06:30 Anion Gap 7 MMOL/L (8-16) L 06/28/18 06:30 BUN 7 mg/dL (7-18) 06/28/18 06:30 Creatinine 0.7 mg/dL (0.55-1.3) 06/28/18 06:30 Creat Clearance w eGFR > 60 (>60) 06/28/18 06:30 Random Glucose 74 mg/dL (74-106) 06/28/18 06:30 Calcium 7.4 mg/dL (8.5-10.1) L 06/28/18 06:30 Total Bilirubin 0.8 mg/dL (0.2-1) 06/28/18 06:30 AST 20 U/L (15-37) 06/28/18 06:30 ALT 13 U/L (13-61) 06/28/18 06:30 Alkaline Phosphatase 86 U/L (45-117) 06/28/18 06:30 Total Protein 5.5 g/dl (6.4-8.2) L 06/28/18 06:30 Albumin 2.0 g/dl (3.4-5.0) L 06/28/18 06:30 Current Medications Generic Name Dose Route Start Last Admin Trade Name Freq PRN Reason Stop Dose Admin Acetaminophen 325 mg 06/13/18 17:05 06/28/18 06:49 Tylenol - PO 325 mg Q8H PRN Administration PAIN LEVEL 6-10 Calcium Carbonate 500 mg 06/22/18 10:00 06/27/18 21:24 Os-Madan 500mg - PO 500 mg BID TERRENCE Administration Cyclobenzaprine HCl 5 mg 06/18/18 11:44 06/28/18 02:29 Flexeril - PO 5 mg Q8H PRN Administration MUSCLE SPASMS Docusate Sodium 100 mg 06/21/18 12:58 Colace - PO Q8H PRN CONSTIPATION Emollient Ointment 1 applic 06/15/18 22:00 06/27/18 21:25 Aquaphor - TP 1 applic BID TERRENCE Administration Enoxaparin Sodium 80 mg 06/22/18 22:30 06/27/18 21:24 Lovenox - SQ 80 mg BID TERRENCE Administration IV Flush 10 ml 06/15/18 11:04 06/23/18 16:10 Luisa-Cath Flush IVPUSH 10 ml PRN PRN Administration FLUSH IV Flush 10 ml 06/16/18 00:22 Luisa-Cath Flush IVPUSH PRN PRN protocol, maintain patency IV Flush 10 ml 06/19/18 10:56 Luisa-Cath Flush IVPUSH PRN PRN FLUSH Ertapenem 1 gm/ Sodium 50 mls @ 100 mls/hr 06/21/18 12:00 06/27/18 09:46 Chloride IVPB 100 mls/hr DAILY TERRENCE Administration Lactobacillus Acidophilus 1 tab 06/22/18 10:15 06/27/18 09:47 Bacid - PO 1 tab DAILY TERRENCE Administration Loperamide HCl 2 mg 06/19/18 10:33 06/27/18 11:22 Imodium - PO 2 mg Q8H PRN Administration DIARRHEA Magnesium Oxide 400 mg 06/22/18 22:00 06/27/18 21:23 Mag-Ox - PO 400 mg BID TERRENCE Administration Miscellaneous 1 each 06/21/18 12:58 06/24/18 12:37 Duragesic Patch Waste TD 1 each PRN PRN Administration PAIN Multivitamins/Minerals/Vitamin C 1 tab 06/14/18 10:00 06/27/18 09:47 Tab-A-Vit - PO 1 tab DAILY TERRENCE Administration Non-Formulary Medication 1 each 06/14/18 16:00 06/27/18 09:47 Abacavir/Dolutegravir/Lamivudi [Triumeq Tablet] PO 1 each DAILY TERRENCE Administration Ondansetron HCl 8 mg 06/13/18 14:52 06/18/18 11:29 Zofran Injection IVPB 8 mg Q6H PRN Administration NAUSEA AND/OR VOMITING Oxycodone HCl 10 mg 06/25/18 00:11 06/28/18 06:49 Roxicodone - PO 10 mg Q8H PRN Administration PAIN LEVEL 6-10 Phenazopyridine HCl 100 mg 06/22/18 18:30 06/27/18 17:35 Pyridium - PO 100 mg PC TERRENCE Administration Potassium Chloride 20 meq 06/20/18 10:45 06/27/18 09:47 K-Dur - PO 20 meq DAILY TERRENCE Administration Simethicone 80 mg 06/15/18 11:06 06/22/18 21:59 Mylicon - PO 80 mg Q4H PRN Administration GAS Tiotropium [place] 2 puff 06/16/18 10:15 06/27/18 09:48 Spiriva Respimat IH 2 puff DAILY TERRENCE Administration Valacyclovir HCl 500 mg 06/14/18 16:15 06/27/18 09:47 Valtrex - PO 500 mg DAILY TERRENCE Administration Home Medications Medication Instructions Recorded Ergocalciferol (Vitamin D2) 50,000 unit PO Q7D 30 Days #4 12/23/17 [Vitamin D2] capsule Lactulose [Cephulac -] 10 gm PO DAILY PRN 30 Days #1 03/04/18 bottle Abacavir/Dolutegravir/Lamivudi 1 each PO DAILY #30 tablet 03/17/18 [Triumeq 600-50-300 mg Tablet] Tiotropium [place] [Spiriva 4 gm IH DAILY #1 mist.inhal 03/17/18 Respimat] clonazePAM [Klonopin -] 0.25 mg PO BID PRN #60 tablet MDD 2 04/07/18 Abacavir/Dolutegravir/Lamivudi 1 each PO DAILY 04/15/18 [Triumeq Tablet] Fosfomycin Tromethamine [Monurol 3 gm PO ONCE #1 packet 05/10/18 (Nf) -] Oxycodone HCl/Acetaminophen 1 each PO TID PRN #70 tablet MDD 3 05/24/18 [Percocet 10-325 mg Tablet] Albuterol Sulfate Inhaler - 2 inh PO Q6H PRN 06/13/18 [Ventolin HFA Inhaler -] Microbiology 06/25/18 09:45 Blood - Peripheral Venous Blood Culture - Preliminary NO GROWTH OBTAINED AFTER 72 HOURS, INCUBATION TO CONTINUE FOR 2 DAYS. 06/25/18 09:40 Blood - Peripheral Venous Blood Culture - Preliminary NO GROWTH OBTAINED AFTER 72 HOURS, INCUBATION TO CONTINUE FOR 2 DAYS. 06/21/18 11:55 Blood - Peripheral Venous Blood Culture - Final NO GROWTH AFTER 5 DAYS INCUBATION 06/21/18 12:00 Blood - Peripheral Venous Blood Culture - Final NO GROWTH AFTER 5 DAYS INCUBATION 06/25/18 13:05 Urine - Urine Clean Catch Urine Culture - Final NO GROWTH OBTAINED 06/23/18 14:30 Urine - Urine Clean Catch Urine Culture - Final NO GROWTH OBTAINED 06/19/18 18:45 Urine - Urine Castro Urine Culture - Final Klebsiella Pneumoniae - Esbl 06/16/18 12:50 Stool Salmonella/Shigella Culture - Final NO GROWTH OF SALMONELLA OR SHIGELLA SPECIES OBTAINED 06/16/18 12:50 Stool Campylobacter Culture - Final NO GROWTH OF CAMPYLOBACTER SPECIES OBTAINED 06/16/18 12:50 Stool Yersinia Culture - Final NO GROWTH OF YERSINIA SPECIES OBTAINED 06/16/18 12:50 Stool Vibrio Culture - Final NO GROWTH OF VIBRIO SPECIES OBTAINED 06/16/18 12:50 Stool Escherichia coli 0157 Culture - Final NO GROWTH OF E COLI 0157 OBTAINED 06/16/18 12:50 Stool Clostridium difficile Antigen (JENNIFER) - Final 06/16/18 12:50 Stool Clostridium difficile Toxin Assay - Final A/P: Patient is a 63 year old female with a significant PMHx of Vivas's Palsy, HIV+ ( follows at the [facility]), COPD, sarcoidosis and squamous cell anal cancer. She is s/p chemotherapy and 28 cycles of RT. Patient is admitted to the hospital for having many comorbidities to manage as an outpatient. # Squamous cell anal cancer s/p 5-FU via right subclavian mediport, Patient on Granix 480mcg daily, wbc 2.5-->2.4, is on the case # s/p incarcerated symptomatic supraumbilical hernia ,hernia reduced by surgeon , Dr. Shepherd, can be considered for minimal invasive operative repair (3-4 weeks) . On abdominal binder, c diff. is negative for antigen and toxin #Urinary retention s/p castro , no issues urinating reported. On ertapenem 1gm daily for kleb esbl # Hypotension. on midodrine continue . cardiology to follow up. # COPD, stable continue duonebs prn # HIV on Haart therapy, follows Dr. Herndon # Anxiety disorder, chronic. on klonopin DVT px : SCDs Physical therapy Visit type - Emergency Visit Emergency Visit: Yes ED Registration Date: 06/13/18 Care time: The patient presented to the Emergency Department on the above date and was hospitalized for further evaluation of their emergent condition. - New Patient This patient is new to me today: Yes Date on this admission: 06/28/18 - Critical Care Critical Care patient: No - Discharge Referral Referred to [facility] Med P.C.: No
[2018-06-28] MEDS: PHENAZOPYRIDINE HCL 100 MG TABLET (FP) PO SCH ×3 (08:39→18:14)
[2018-06-28] MEDS ORDERED: PT OWN MED DRAWER 7, Y5N ONE (09:21)
[2018-06-28] MEDS: TIOTROPIUM BROMIDE 2.5 MCG (SPIRIVA) RESPIMAT INHALER IH SCH (09:22)
[2018-06-28] MEDS: valACYclovir HCL 500 MG TABLET (FP) PO SCH (09:23)
[2018-06-28] MEDS: MAGNESIUM OXIDE 400 MG TABLET (FP) PO SCH ×2 (09:23→22:36)
[2018-06-28] MEDS: MULTIVITAMINS (DAILY MVI) TABLET (FP) PO SCH (09:23)
[2018-06-28] MEDS: LACTOBACILLUS ACIDOPHILUS 1 TABLET PO SCH (09:23)
[2018-06-28] MEDS: ENOXAPARIN NA (PORCINE) 80 MG/0.8 ML DISP.SYRIN SQ SCH ×2 (09:24→22:36)
[2018-06-28] MEDS: POTASSIUM CHLORIDE TABS 10 MEQ TABLET.ER (FP) PO SCH (09:24)
[2018-06-28] MEDS: CALCIUM (OYSTER SHELL) 500 MG TABLET (FP) PO SCH ×2 (09:24→22:35)
[2018-06-28] MEDS: ERTAPENEM SODIUM 1 GM in SODIUM CHLORIDE 50 ML IVPB SCH (09:25)
[2018-06-28] MEDS: PORTA CATH FLUSH 10 ML IVPUSH PRN (10:00)
[2018-06-28] MEDS: MINERAL OIL/PET HY-PHL TOPICAL OINTMENT 454 GM JAR TP SCH ×2 (10:19→22:36)
[2018-06-28] MEDS: LOPERAMIDE HCL 2 MG CAPSULE PO PRN (12:26)
[2018-06-28] MEDS: SIMETHICONE 80 MG TAB.CHEW (FP) PO PRN (12:26)
[2018-06-28] MEDS: fentaNYL 12mcg/hr PATCH.TD72 TD SCH (12:26)
[2018-06-28] MEDS: FENTANYL PATCH WASTE TD PRN (12:34)
[2018-06-28] MEDS ORDERED: FUROSEMIDE 20 MG TABLET (FP) PO ONE (14:08)
--- NOTE | 2018-06-28 14:08 | PN ---
Progress Note, Physician History of Present Illness: Pt seen and examined at bedside. She denies shortness of breath. - Current Medication List Current Medications: Active Medications Acetaminophen (Tylenol -) 325 mg PO Q8H PRN PRN Reason: PAIN LEVEL 6-10 Last Admin: 06/28/18 06:49 Dose: 325 mg Calcium Carbonate (Os-Madan 500mg -) 500 mg PO BID [facility] Last Admin: 06/28/18 09:24 Dose: 500 mg Cyclobenzaprine HCl (Flexeril -) 5 mg PO Q8H PRN PRN Reason: MUSCLE SPASMS Last Admin: 06/28/18 12:26 Dose: 5 mg Docusate Sodium (Colace -) 100 mg PO Q8H PRN PRN Reason: CONSTIPATION Emollient Ointment (Aquaphor -) 1 applic TP BID [facility] Last Admin: 06/28/18 10:19 Dose: 1 applic Enoxaparin Sodium (Lovenox -) 80 mg SQ BID [facility] Last Admin: 06/28/18 09:24 Dose: 80 mg Fentanyl (Duragesic 12mcg Patch -) 1 patch TD Q72H [facility] Last Admin: 06/28/18 12:26 Dose: 1 patch IV Flush (Luisa-Cath Flush) 10 ml IVPUSH PRN PRN PRN Reason: FLUSH Last Admin: 06/23/18 16:10 Dose: 10 ml IV Flush (Luisa-Cath Flush) 10 ml IVPUSH PRN PRN PRN Reason: protocol, maintain patency IV Flush (Luisa-Cath Flush) 10 ml IVPUSH PRN PRN PRN Reason: FLUSH Ertapenem 1 gm/ Sodium (Chloride) 50 mls @ 100 mls/hr IVPB DAILY [facility] Last Admin: 06/28/18 09:25 Dose: 100 mls/hr Lactobacillus Acidophilus (Bacid -) 1 tab PO DAILY [facility] Last Admin: 06/28/18 09:23 Dose: 1 tab Loperamide HCl (Imodium -) 2 mg PO Q8H PRN PRN Reason: DIARRHEA Last Admin: 06/28/18 12:26 Dose: 2 mg Magnesium Oxide (Mag-Ox -) 400 mg PO BID [facility] Last Admin: 06/28/18 09:23 Dose: 400 mg Miscellaneous (Duragesic Patch Waste) 1 each TD PRN PRN PRN Reason: WASTE Last Admin: 06/28/18 12:34 Dose: 1 each Multivitamins/Minerals/Vitamin C (Tab-A-Vit -) 1 tab PO DAILY [facility] Last Admin: 06/28/18 09:23 Dose: 1 tab Non-Formulary Medication (Abacavir/Dolutegravir/Lamivudi [Triumeq Tablet]) 1 each PO DAILY [facility] Last Admin: 06/28/18 09:24 Dose: 1 each Ondansetron HCl (Zofran Injection) 8 mg IVPB Q6H PRN PRN Reason: NAUSEA AND/OR VOMITING Last Admin: 06/18/18 11:29 Dose: 8 mg Oxycodone HCl (Roxicodone -) 10 mg PO Q8H PRN PRN Reason: PAIN LEVEL 6-10 Last Admin: 06/28/18 06:49 Dose: 10 mg Phenazopyridine HCl (Pyridium -) 100 mg PO PC [facility] Last Admin: 06/28/18 13:26 Dose: 100 mg Potassium Chloride (K-Dur -) 20 meq PO DAILY [facility] Last Admin: 06/28/18 09:24 Dose: 20 meq Simethicone (Mylicon -) 80 mg PO Q4H PRN PRN Reason: GAS Last Admin: 06/28/18 12:26 Dose: 80 mg Tiotropium [place] (Spiriva Respimat) 2 puff IH DAILY [facility] Last Admin: 06/28/18 09:22 Dose: 2 puff Valacyclovir HCl (Valtrex -) 500 mg PO DAILY [facility] Last Admin: 06/28/18 09:23 Dose: 500 mg - Objective Vital Signs: Vital Signs Temperature 98.2 F 06/28/18 08:50 Pulse Rate 99 H 06/28/18 08:50 Respiratory Rate 18 06/28/18 08:50 Blood Pressure 82/67 L 06/28/18 08:50 O2 Sat by Pulse Oximetry (%) 94 L 06/28/18 09:00 Constitutional: Yes: Calm Eyes: Yes: Conjunctiva Clear HENT: Yes: Atraumatic Cardiovascular: Yes: S1, S2 Respiratory: Yes: CTA Bilaterally Gastrointestinal: Yes: Ascites Genitourinary: Yes: Incontinence Musculoskeletal: Yes: Muscle Weakness Edema: Yes Edema: LLE: 2+, RLE: 2+ Neurological: Yes: Oriented Psychiatric: Yes: Oriented Labs: CBC, BMP 06/28/18 06:30 06/28/18 06:30 INR, PTT INR 1.22 (0.83-1.09) H 06/15/18 15:30 Problem List - Problems (1) Fluid overload Code(s): E87.70 - FLUID OVERLOAD, UNSPECIFIED Assessment/Plan Current Medications Generic Name Dose Route Start Last Admin Trade Name Freq PRN Reason Stop Dose Admin Acetaminophen 325 mg 06/13/18 17:05 06/28/18 06:49 Tylenol - PO 325 mg Q8H PRN Administration PAIN LEVEL 6-10 Calcium Carbonate 500 mg 06/22/18 10:00 06/28/18 09:24 Os-Madan 500mg - PO 500 mg BID TERRENCE Administration Cyclobenzaprine HCl 5 mg 06/18/18 11:44 06/28/18 12:26 Flexeril - PO 5 mg Q8H PRN Administration MUSCLE SPASMS Docusate Sodium 100 mg 06/21/18 12:58 Colace - PO Q8H PRN CONSTIPATION Emollient Ointment 1 applic 06/15/18 22:00 06/28/18 10:19 Aquaphor - TP 1 applic BID TERRENCE Administration Enoxaparin Sodium 80 mg 06/22/18 22:30 06/28/18 09:24 Lovenox - SQ 80 mg BID TERRENCE Administration Fentanyl 1 patch 06/28/18 11:00 06/28/18 12:26 Duragesic 12mcg Patch - TD 1 patch Q72H TERRENCE Administration IV Flush 10 ml 06/15/18 11:04 06/23/18 16:10 Luisa-Cath Flush IVPUSH 10 ml PRN PRN Administration FLUSH IV Flush 10 ml 06/16/18 00:22 Luisa-Cath Flush IVPUSH PRN PRN protocol, maintain patency IV Flush 10 ml 06/19/18 10:56 Luisa-Cath Flush IVPUSH PRN PRN FLUSH Ertapenem 1 gm/ Sodium 50 mls @ 100 mls/hr 06/21/18 12:00 06/28/18 09:25 Chloride IVPB 100 mls/hr DAILY TERRENCE Administration Lactobacillus Acidophilus 1 tab 06/22/18 10:15 06/28/18 09:23 Bacid - PO 1 tab DAILY TERRENCE Administration Loperamide HCl 2 mg 06/19/18 10:33 06/28/18 12:26 Imodium - PO 2 mg Q8H PRN Administration DIARRHEA Magnesium Oxide 400 mg 06/22/18 22:00 06/28/18 09:23 Mag-Ox - PO 400 mg BID TERRENCE Administration Miscellaneous 1 each 06/28/18 11:00 06/28/18 12:34 Duragesic Patch Waste TD 1 each PRN PRN Administration WASTE Multivitamins/Minerals/Vitamin C 1 tab 06/14/18 10:00 06/28/18 09:23 Tab-A-Vit - PO 1 tab DAILY TERRENCE Administration Non-Formulary Medication 1 each 06/14/18 16:00 06/28/18 09:24 Abacavir/Dolutegravir/Lamivudi [Triumeq Tablet] PO 1 each DAILY TERRENCE Administration Ondansetron HCl 8 mg 06/13/18 14:52 06/18/18 11:29 Zofran Injection IVPB 8 mg Q6H PRN Administration NAUSEA AND/OR VOMITING Oxycodone HCl 10 mg 06/25/18 00:11 06/28/18 06:49 Roxicodone - PO 10 mg Q8H PRN Administration PAIN LEVEL 6-10 Phenazopyridine HCl 100 mg 06/22/18 18:30 06/28/18 13:26 Pyridium - PO 100 mg PC TERRENCE Administration Potassium Chloride 20 meq 06/20/18 10:45 06/28/18 09:24 K-Dur - PO 20 meq DAILY TERRENCE Administration Simethicone 80 mg 06/15/18 11:06 06/28/18 12:26 Mylicon - PO 80 mg Q4H PRN Administration GAS Tiotropium [place] 2 puff 06/16/18 10:15 06/28/18 09:22 Spiriva Respimat IH 2 puff DAILY TERRENCE Administration Valacyclovir HCl 500 mg 06/14/18 16:15 06/28/18 09:23 Valtrex - PO 500 mg DAILY TERRENCE Administration Impression 1. volume overload 2. HIV 3. Hep B 4. Hep C 5. HTN 6. COPD Plan - replace potassium - will give a small dose of PO lasix today if bp permits - repeat labs in am - will hold off IV lasix - her weight is down to 175 today
[2018-06-28 17:19] LABS: URINE APPEARANCE CLEAR; URINE BILIRUBIN NEGATIVE (<2.0 mg/dL); URINE COLOR AMBER; URINE GLUCOSE (UA) NEGATIVE (NEGATIVE); URINE KETONE NEGATIVE (NEGATIVE); URINE LEUK ESTERASE NEGATIVE (NEGATIVE); URINE NITRITE POSITIVE (NEGATIVE); URINE PROTEIN NEGATIVE (NEGATIVE)
[2018-06-28 17:29] LABS: EPI CELLS RARE /HPF (FEW); URINE MUCUS RARE
--- NOTE | 2018-06-28 20:20 | PN ---
Progress Note (short form) - Note Progress Note: Patient seen and examined Somewhat anxious , frustrated about prolonged hospital stay and upcoming holidays Still with diarrhea- 3 loose stools today --? related to Ensure Last Vital Signs Temp Pulse Resp BP Pulse Ox 98.9 F 112 H 18 95/56 L 94 L 06/28/18 18:33 06/28/18 16:08 06/28/18 16:08 06/28/18 16:08 06/28/18 09:00 Cor: RSR, No murmurs, No gallops Lungs:diminished breath sounds Abd: Soft, tender umbilical area Ext:No significant edema Skin: No rashes, Integument intact CBC, BMP 06/28/18 06:30 06/28/18 06:30 Current Medications Generic Name Dose Route Start Last Admin Trade Name Freq PRN Reason Stop Dose Admin Acetaminophen 325 mg 06/13/18 17:05 06/28/18 16:14 Tylenol - PO 325 mg Q8H PRN Administration PAIN LEVEL 6-10 Calcium Carbonate 500 mg 06/22/18 10:00 06/28/18 09:24 Os-Madan 500mg - PO 500 mg BID TERRENCE Administration Cyclobenzaprine HCl 5 mg 06/18/18 11:44 06/28/18 12:26 Flexeril - PO 5 mg Q8H PRN Administration MUSCLE SPASMS Docusate Sodium 100 mg 06/21/18 12:58 Colace - PO Q8H PRN CONSTIPATION Emollient Ointment 1 applic 06/15/18 22:00 06/28/18 10:19 Aquaphor - TP 1 applic BID TERRENCE Administration Enoxaparin Sodium 80 mg 06/22/18 22:30 06/28/18 09:24 Lovenox - SQ 80 mg BID TERRENCE Administration Fentanyl 1 patch 06/28/18 11:00 06/28/18 12:26 Duragesic 12mcg Patch - TD 1 patch Q72H TERRENCE Administration IV Flush 10 ml 06/15/18 11:04 06/28/18 10:00 Luisa-Cath Flush IVPUSH 10 ml PRN PRN Administration FLUSH IV Flush 10 ml 06/16/18 00:22 Luisa-Cath Flush IVPUSH PRN PRN protocol, maintain patency IV Flush 10 ml 06/19/18 10:56 Luisa-Cath Flush IVPUSH PRN PRN FLUSH Ertapenem 1 gm/ Sodium 50 mls @ 100 mls/hr 06/21/18 12:00 06/28/18 09:25 Chloride IVPB 100 mls/hr DAILY TERRENCE Administration Lactobacillus Acidophilus 1 tab 06/22/18 10:15 06/28/18 09:23 Bacid - PO 1 tab DAILY TERRENCE Administration Magnesium Oxide 400 mg 06/22/18 22:00 06/28/18 09:23 Mag-Ox - PO 400 mg BID TERRENCE Administration Miscellaneous 1 each 06/28/18 11:00 06/28/18 12:34 Duragesic Patch Waste TD 1 each PRN PRN Administration WASTE Multivitamins/Minerals/Vitamin C 1 tab 06/14/18 10:00 06/28/18 09:23 Tab-A-Vit - PO 1 tab DAILY TERRENCE Administration Non-Formulary Medication 1 each 06/14/18 16:00 06/28/18 09:24 Abacavir/Dolutegravir/Lamivudi [Triumeq Tablet] PO 1 each DAILY TERRENCE Administration Ondansetron HCl 8 mg 06/13/18 14:52 06/18/18 11:29 Zofran Injection IVPB 8 mg Q6H PRN Administration NAUSEA AND/OR VOMITING Oxycodone HCl 10 mg 06/25/18 00:11 06/28/18 16:12 Roxicodone - PO 10 mg Q8H PRN Administration PAIN LEVEL 6-10 Phenazopyridine HCl 100 mg 06/22/18 18:30 06/28/18 18:14 Pyridium - PO 100 mg PC TERRENCE Administration Potassium Chloride 20 meq 06/20/18 10:45 06/28/18 09:24 K-Dur - PO 20 meq DAILY TERRENCE Administration Simethicone 80 mg 06/15/18 11:06 06/28/18 12:26 Mylicon - PO 80 mg Q4H PRN Administration GAS Tiotropium [place] 2 puff 06/16/18 10:15 06/28/18 09:22 Spiriva Respimat IH 2 puff DAILY TERRENCE Administration Valacyclovir HCl 500 mg 06/14/18 16:15 06/28/18 09:23 Valtrex - PO 500 mg DAILY TERRENCE Administration Impression: Anal ca HIV Hep B,C Cirrhosis Volume overload Diarrhea Pancytopenia UTI Plan: Continue antibiotics Slow diuresis May need neupogen Plan
[2018-06-28] MEDS ORDERED: clonazePAM 0.5 MG TABLET PO PRN (20:22)
[2018-06-29] MEDS: ACETAMINOPHEN 325 MG TABLET (FP) PO PRN ×2 (01:15→17:04)
[2018-06-29] MEDS: oxyCODONE HCL 5 MG TABLET PO PRN ×3 (01:15→17:08)
[2018-06-29] MEDS ORDERED: ALBUMIN HUMAN 25% 100 ML VIAL IVPB ONE ×2 (02:00→13:15)
[2018-06-29 06:59] LABS: BASO % 0.5 % (0-2.0); EOS % 6.8 % (0-4.5); HEMOGLOBIN 8.8 GM/dL (10.7-15.3); LYMPH % 21.5 % (8-40); MCH 33.9 pg (25.7-33.7); MCHC 32.5 g/dl (32.0-36.0); MEAN CELL VOLUME 104.4 fl (80-96); MEAN PLT VOLUME 8.6 fl (7.5-11.1); MONO % 13.9 % (3.8-10.2); NEUT % 57.3 % (42.8-82.8); PLATELET COUNT 80 K/MM3 (134-434); RBC 2.59 M/mm3 (3.60-5.2); RDW 17.7 % (11.6-15.6); WHITE BLOOD COUNT 2.6 K/mm3 (4.0-10.0)
[2018-06-29 08:07] LABS: ALK PHOS 97 U/L (45-117); ANION GAP 5 MMOL/L (8-16); BILIRUBIN,TOTAL 0.6 mg/dL (0.2-1); BLOOD UREA NITROGEN 6 mg/dL (7-18); CALCIUM 7.3 mg/dL (8.5-10.1); CHLORIDE 106 mmol/L (98-107); CO2 29 mmol/L (21-32); CREATININE 0.7 mg/dL (0.55-1.3); GLUCOSE,RANDOM 99 mg/dL (74-106); MAGNESIUM 1.9 mg/dL (1.8-2.4); SGOT/AST 29 U/L (15-37); SGPT/ALT 15 U/L (13-61); SODIUM 140 mmol/L (136-145); TOT PROT 5.7 g/dl (6.4-8.2)
[2018-06-29] MEDS: PHENAZOPYRIDINE HCL 100 MG TABLET (FP) PO SCH ×3 (08:22→17:45)
[2018-06-29] MEDS: POTASSIUM CHLORIDE TABS 10 MEQ TABLET.ER (FP) PO SCH (09:47)
[2018-06-29] MEDS: CALCIUM (OYSTER SHELL) 500 MG TABLET (FP) PO SCH ×2 (09:47→22:44)
[2018-06-29] MEDS: ENOXAPARIN NA (PORCINE) 80 MG/0.8 ML DISP.SYRIN SQ SCH ×2 (09:47→22:44)
[2018-06-29] MEDS: LACTOBACILLUS ACIDOPHILUS 1 TABLET PO SCH (09:47)
[2018-06-29] MEDS: MULTIVITAMINS (DAILY MVI) TABLET (FP) PO SCH (09:48)
[2018-06-29] MEDS: valACYclovir HCL 500 MG TABLET (FP) PO SCH (09:48)
[2018-06-29] MEDS: MAGNESIUM OXIDE 400 MG TABLET (FP) PO SCH ×2 (09:48→22:44)
[2018-06-29] MEDS: ERTAPENEM SODIUM 1 GM in SODIUM CHLORIDE 50 ML IVPB SCH (09:48)
[2018-06-29] MEDS: MINERAL OIL/PET HY-PHL TOPICAL OINTMENT 454 GM JAR TP SCH ×2 (09:49→22:45)
[2018-06-29] MEDS: TIOTROPIUM BROMIDE 2.5 MCG (SPIRIVA) RESPIMAT INHALER IH SCH (09:49)
[2018-06-29] MEDS ORDERED: FUROSEMIDE 40 MG/4 ML INJECTABLE VIAL IVPUSH ONE (12:48)
--- NOTE | 2018-06-29 12:48 | PN ---
Progress Note, Physician History of Present Illness: Pt seen and examined at bedside. She is awake and alert. She feels that edema is improving. - Current Medication List Current Medications: Active Medications Acetaminophen (Tylenol -) 325 mg PO Q8H PRN PRN Reason: PAIN LEVEL 6-10 Last Admin: 06/29/18 01:15 Dose: 325 mg Calcium Carbonate (Os-Madan 500mg -) 500 mg PO BID [facility] Last Admin: 06/29/18 09:47 Dose: 500 mg Clonazepam (Klonopin -) 0.25 mg PO BID PRN PRN Reason: ANXIETY Cyclobenzaprine HCl (Flexeril -) 5 mg PO Q8H PRN PRN Reason: MUSCLE SPASMS Last Admin: 06/28/18 22:38 Dose: 5 mg Docusate Sodium (Colace -) 100 mg PO Q8H PRN PRN Reason: CONSTIPATION Emollient Ointment (Aquaphor -) 1 applic TP BID [facility] Last Admin: 06/29/18 09:49 Dose: 1 applic Enoxaparin Sodium (Lovenox -) 80 mg SQ BID [facility] Last Admin: 06/29/18 09:47 Dose: 80 mg Fentanyl (Duragesic 12mcg Patch -) 1 patch TD Q72H [facility] Last Admin: 06/28/18 12:26 Dose: 1 patch IV Flush (Luisa-Cath Flush) 10 ml IVPUSH PRN PRN PRN Reason: FLUSH Last Admin: 06/28/18 10:00 Dose: 10 ml IV Flush (Luisa-Cath Flush) 10 ml IVPUSH PRN PRN PRN Reason: protocol, maintain patency IV Flush (Luisa-Cath Flush) 10 ml IVPUSH PRN PRN PRN Reason: FLUSH Ertapenem 1 gm/ Sodium (Chloride) 50 mls @ 100 mls/hr IVPB DAILY [facility] Last Admin: 06/29/18 09:48 Dose: 100 mls/hr Lactobacillus Acidophilus (Bacid -) 1 tab PO DAILY [facility] Last Admin: 06/29/18 09:47 Dose: 1 tab Magnesium Oxide (Mag-Ox -) 400 mg PO BID [facility] Last Admin: 06/29/18 09:48 Dose: 400 mg Miscellaneous (Duragesic Patch Waste) 1 each TD PRN PRN PRN Reason: WASTE Last Admin: 06/28/18 12:34 Dose: 1 each Multivitamins/Minerals/Vitamin C (Tab-A-Vit -) 1 tab PO DAILY [facility] Last Admin: 06/29/18 09:48 Dose: 1 tab Non-Formulary Medication (Abacavir/Dolutegravir/Lamivudi [Triumeq Tablet]) 1 each PO DAILY [facility] Last Admin: 06/29/18 10:15 Dose: 1 each Ondansetron HCl (Zofran Injection) 8 mg IVPB Q6H PRN PRN Reason: NAUSEA AND/OR VOMITING Last Admin: 06/18/18 11:29 Dose: 8 mg Oxycodone HCl (Roxicodone -) 10 mg PO Q8H PRN PRN Reason: PAIN LEVEL 6-10 Last Admin: 06/29/18 09:47 Dose: 10 mg Phenazopyridine HCl (Pyridium -) 100 mg PO PC [facility] Last Admin: 06/29/18 08:22 Dose: 100 mg Potassium Chloride (K-Dur -) 20 meq PO DAILY [facility] Last Admin: 06/29/18 09:47 Dose: 20 meq Simethicone (Mylicon -) 80 mg PO Q4H PRN PRN Reason: GAS Last Admin: 06/28/18 12:26 Dose: 80 mg Tiotropium [place] (Spiriva Respimat) 2 puff IH DAILY [facility] Last Admin: 06/29/18 09:49 Dose: 2 puff Valacyclovir HCl (Valtrex -) 500 mg PO DAILY [facility] Last Admin: 06/29/18 09:48 Dose: 500 mg - Objective Vital Signs: Vital Signs Temperature 98.4 F 06/29/18 10:00 Pulse Rate 108 H 06/29/18 10:00 Respiratory Rate 17 06/29/18 10:00 Blood Pressure 108/58 L 06/29/18 10:00 O2 Sat by Pulse Oximetry (%) 96 06/28/18 21:00 Constitutional: Yes: Calm Eyes: Yes: Conjunctiva Clear HENT: Yes: Atraumatic Neck: Yes: Supple Cardiovascular: Yes: S1, S2 Respiratory: Yes: CTA Bilaterally Gastrointestinal: Yes: Soft, Ascites Genitourinary: Yes: WNL Edema: Yes Edema: LLE: 1+, RLE: 1+ Neurological: Yes: Oriented Psychiatric: Yes: Oriented Labs: CBC, BMP 06/29/18 06:15 06/29/18 06:15 INR, PTT INR 1.22 (0.83-1.09) H 06/15/18 15:30 Problem List - Problems (1) Fluid overload Code(s): E87.70 - FLUID OVERLOAD, UNSPECIFIED Assessment/Plan Current Medications Generic Name Dose Route Start Last Admin Trade Name Freq PRN Reason Stop Dose Admin Acetaminophen 325 mg 06/13/18 17:05 06/29/18 01:15 Tylenol - PO 325 mg Q8H PRN Administration PAIN LEVEL 6-10 Calcium Carbonate 500 mg 06/22/18 10:00 06/29/18 09:47 Os-Madan 500mg - PO 500 mg BID TERRENCE Administration Clonazepam 0.25 mg 06/28/18 20:22 Klonopin - PO BID PRN ANXIETY Cyclobenzaprine HCl 5 mg 06/18/18 11:44 06/28/18 22:38 Flexeril - PO 5 mg Q8H PRN Administration MUSCLE SPASMS Docusate Sodium 100 mg 06/21/18 12:58 Colace - PO Q8H PRN CONSTIPATION Emollient Ointment 1 applic 06/15/18 22:00 06/29/18 09:49 Aquaphor - TP 1 applic BID TERRENCE Administration Enoxaparin Sodium 80 mg 06/22/18 22:30 06/29/18 09:47 Lovenox - SQ 80 mg BID TERERNCE Administration Fentanyl 1 patch 06/28/18 11:00 06/28/18 12:26 Duragesic 12mcg Patch - TD 1 patch Q72H TERRENCE Administration IV Flush 10 ml 06/15/18 11:04 06/28/18 10:00 Luisa-Cath Flush IVPUSH 10 ml PRN PRN Administration FLUSH IV Flush 10 ml 06/16/18 00:22 Luisa-Cath Flush IVPUSH PRN PRN protocol, maintain patency IV Flush 10 ml 06/19/18 10:56 Luisa-Cath Flush IVPUSH PRN PRN FLUSH Ertapenem 1 gm/ Sodium 50 mls @ 100 mls/hr 06/21/18 12:00 06/29/18 09:48 Chloride IVPB 100 mls/hr DAILY TERRENCE Administration Lactobacillus Acidophilus 1 tab 06/22/18 10:15 06/29/18 09:47 Bacid - PO 1 tab DAILY TERRENCE Administration Magnesium Oxide 400 mg 06/22/18 22:00 06/29/18 09:48 Mag-Ox - PO 400 mg BID TERRENCE Administration Miscellaneous 1 each 06/28/18 11:00 06/28/18 12:34 Duragesic Patch Waste TD 1 each PRN PRN Administration WASTE Multivitamins/Minerals/Vitamin C 1 tab 06/14/18 10:00 06/29/18 09:48 Tab-A-Vit - PO 1 tab DAILY TERRENCE Administration Non-Formulary Medication 1 each 06/14/18 16:00 06/29/18 10:15 Abacavir/Dolutegravir/Lamivudi [Triumeq Tablet] PO 1 each DAILY TERRENCE Administration Ondansetron HCl 8 mg 06/13/18 14:52 06/18/18 11:29 Zofran Injection IVPB 8 mg Q6H PRN Administration NAUSEA AND/OR VOMITING Oxycodone HCl 10 mg 06/25/18 00:11 06/29/18 09:47 Roxicodone - PO 10 mg Q8H PRN Administration PAIN LEVEL 6-10 Phenazopyridine HCl 100 mg 06/22/18 18:30 06/29/18 08:22 Pyridium - PO 100 mg PC TERRENCE Administration Potassium Chloride 20 meq 06/20/18 10:45 06/29/18 09:47 K-Dur - PO 20 meq DAILY TERRENCE Administration Simethicone 80 mg 06/15/18 11:06 06/28/18 12:26 Mylicon - PO 80 mg Q4H PRN Administration GAS Tiotropium [place] 2 puff 06/16/18 10:15 06/29/18 09:49 Spiriva Respimat IH 2 puff DAILY TERRENCE Administration Valacyclovir HCl 500 mg 06/14/18 16:15 06/29/18 09:48 Valtrex - PO 500 mg DAILY TERRENCE Administration Impression 1. volume overload 2. HIV 3. Hep B 4. Hep C 5. HTN 6. COPD Plan - weight is down to 174 pounds - will give lasix and albumin - repeat labs in am - encourage PO caloric intake - will follow Dr Forde
[2018-06-29] MEDS: SIMETHICONE 80 MG TAB.CHEW (FP) PO PRN (13:34)
[2018-06-29] MEDS ORDERED: FUROSEMIDE 40 MG/4 ML INJECTABLE VIAL ONE (14:10)
--- NOTE | 2018-06-29 14:12 | PN ---
Progress Note (short form) - Note Progress Note: s:no chest pain, palps, dyspnea. Current Medications Generic Name Dose Route Start Last Admin Trade Name Freq PRN Reason Stop Dose Admin Acetaminophen 325 mg 06/13/18 17:05 06/29/18 01:15 Tylenol - PO 325 mg Q8H PRN Administration PAIN LEVEL 6-10 Calcium Carbonate 500 mg 06/22/18 10:00 06/29/18 09:47 Os-Madan 500mg - PO 500 mg BID TERRENCE Administration Clonazepam 0.25 mg 06/28/18 20:22 06/29/18 13:47 Klonopin - PO 0.25 mg BID PRN Administration ANXIETY Cyclobenzaprine HCl 5 mg 06/18/18 11:44 06/28/18 22:38 Flexeril - PO 5 mg Q8H PRN Administration MUSCLE SPASMS Docusate Sodium 100 mg 06/21/18 12:58 Colace - PO Q8H PRN CONSTIPATION Emollient Ointment 1 applic 06/15/18 22:00 06/29/18 09:49 Aquaphor - TP 1 applic BID TERRENCE Administration Enoxaparin Sodium 80 mg 06/22/18 22:30 06/29/18 09:47 Lovenox - SQ 80 mg BID TERRENCE Administration Fentanyl 1 patch 06/28/18 11:00 06/28/18 12:26 Duragesic 12mcg Patch - TD 1 patch Q72H TERRENCE Administration IV Flush 10 ml 06/15/18 11:04 06/28/18 10:00 Luisa-Cath Flush IVPUSH 10 ml PRN PRN Administration FLUSH IV Flush 10 ml 06/16/18 00:22 Luisa-Cath Flush IVPUSH PRN PRN protocol, maintain patency IV Flush 10 ml 06/19/18 10:56 Luisa-Cath Flush IVPUSH PRN PRN FLUSH Ertapenem 1 gm/ Sodium 50 mls @ 100 mls/hr 06/21/18 12:00 06/29/18 09:48 Chloride IVPB 100 mls/hr DAILY TERRENCE Administration Lactobacillus Acidophilus 1 tab 06/22/18 10:15 06/29/18 09:47 Bacid - PO 1 tab DAILY TERRENCE Administration Magnesium Oxide 400 mg 06/22/18 22:00 06/29/18 09:48 Mag-Ox - PO 400 mg BID TERRENCE Administration Miscellaneous 1 each 06/28/18 11:00 06/28/18 12:34 Duragesic Patch Waste TD 1 each PRN PRN Administration WASTE Multivitamins/Minerals/Vitamin C 1 tab 06/14/18 10:00 06/29/18 09:48 Tab-A-Vit - PO 1 tab DAILY TERRENCE Administration Non-Formulary Medication 1 each 06/14/18 16:00 06/29/18 10:15 Abacavir/Dolutegravir/Lamivudi [Triumeq Tablet] PO 1 each DAILY TERRENCE Administration Ondansetron HCl 8 mg 06/13/18 14:52 06/18/18 11:29 Zofran Injection IVPB 8 mg Q6H PRN Administration NAUSEA AND/OR VOMITING Oxycodone HCl 10 mg 06/25/18 00:11 06/29/18 09:47 Roxicodone - PO 10 mg Q8H PRN Administration PAIN LEVEL 6-10 Phenazopyridine HCl 100 mg 06/22/18 18:30 06/29/18 08:22 Pyridium - PO 100 mg PC TERRENCE Administration Potassium Chloride 20 meq 06/20/18 10:45 06/29/18 09:47 K-Dur - PO 20 meq DAILY TERRENCE Administration Simethicone 80 mg 06/15/18 11:06 06/29/18 13:34 Mylicon - PO 80 mg Q4H PRN Administration GAS Tiotropium [place] 2 puff 06/16/18 10:15 06/29/18 09:49 Spiriva Respimat IH 2 puff DAILY TERRENCE Administration Valacyclovir HCl 500 mg 06/14/18 16:15 06/29/18 09:48 Valtrex - PO 500 mg DAILY TERRENCE Administration Vital Signs: Vital Signs Period Temp Pulse Resp BP Sys/Wade Pulse Ox Last 24 Hr 98.4 F-99.3 F 100-112 17-18 91-108/52-58 96 Constitutional: Yes: No Distress, Calm Eyes: Yes: Conjunctiva Clear Respiratory: cta bl nl eff Gastrointestinal: Yes: Normal Bowel Sounds, Soft Cardiovascular: Yes: Regular Rate and Rhythm JVD: No Heart Sounds: Yes: S1, S2 Musculoskeletal: No: Back Pain Extremities: No: Cold, Cyanosis Edema: 1+ le edema bl Integumentary: No: Jaundice diaphoresis Neurological: Yes: Alert, Oriented CBC, BMP 06/29/18 06:15 06/29/18 06:15 echo 06/2018: nl LV/RV, mild MR, mild TR Assessment/Plan Hypotension - nl EF on echo - pt reports chronically low bp, d/w Dr. 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 agree with iv lasix and alb per renal.
--- NOTE | 2018-06-29 15:00 | PN ---
Physical Exam: SUBJECTIVE: Patient seen and examined. She reports her abdomen hurts her somewhat. She has not had diarrhea but has had soft stool. She is trying to eat but can only manage to eat a little. OBJECTIVE: Vital Signs Period Temp Pulse Resp BP Sys/Wade Pulse Ox Last 24 Hr 98.4 F-99.3 F 100-112 17-18 91-108/52-58 96 GENERAL: The patient is awake, alert, and fully oriented, in no acute distress. HEAD: Normal with no signs of trauma. EYES: PERRL, extraocular movements intact, sclera anicteric, conjunctiva clear. No ptosis. ENT: Ears normal, nares patent, oropharynx clear without exudates, moist mucous membranes. NECK: Trachea midline, full range of motion, supple. LUNGS: Expiratory wheeze, no crackles, no accessory muscle use. HEART: Regular rate and rhythm, S1, S2 without murmur, rub or gallop. ABDOMEN: +reducable round protrusion in RLQ, slightly TTP, +BS EXTREMITIES: +1 edema to b/l legs, 2+ pulses, warm, well-perfused, NEUROLOGICAL: No facial droop, normal speech, slow, steady gate PSYCH: Normal mood, normal affect. SKIN: Warm, dry, no rashes or lesions noted Laboratory Results - last 24 hr 06/28/18 06/29/18 06/29/18 16:00 06:15 06:15 WBC 2.6 L RBC 2.59 L Hgb 8.8 L Hct 27.0 L MCV 104.4 H MCH 33.9 H MCHC 32.5 RDW 17.7 H Plt Count 80 L MPV 8.6 Absolute Neuts (auto) 1.5 Neutrophils % 57.3 Lymphocytes % 21.5 Monocytes % 13.9 H Eosinophils % 6.8 H Basophils % 0.5 Nucleated RBC % 0 Sodium 140 Potassium 4.0 Chloride 106 Carbon Dioxide 29 Anion Gap 5 L BUN 6 L Creatinine 0.7 Creat Clearance w eGFR > 60 Random Glucose 99 Calcium 7.3 L Magnesium 1.9 Total Bilirubin 0.6 AST 29 ALT 15 Alkaline Phosphatase 97 Total Protein 5.7 L Albumin 2.0 L Urine Color Daniela Urine Appearance Clear Urine pH 8.0 D Ur Specific [place] 1.015 Urine Protein Negative Urine Glucose (UA) Negative Urine Ketones Negative Urine Blood Negative Urine Nitrite Positive Urine Bilirubin Negative Urine Urobilinogen 2.0 H Ur Leukocyte Esterase Negative Urine WBC (Auto) 4 Urine RBC (Auto) 1 Ur Epithelial Cells Rare Urine Mucus Rare Active Medications Generic Name Dose Route Start Last Admin Trade Name Helen PRN Reason Stop Dose Admin Acetaminophen 325 mg 06/13/18 17:05 06/29/18 01:15 Tylenol - PO 325 mg Q8H PRN Administration PAIN LEVEL 6-10 Calcium Carbonate 500 mg 06/22/18 10:00 06/29/18 09:47 Os-Madan 500mg - PO 500 mg BID TERRENCE Administration Clonazepam 0.25 mg 06/28/18 20:22 06/29/18 13:47 Klonopin - PO 0.25 mg BID PRN Administration ANXIETY Cyclobenzaprine HCl 5 mg 06/18/18 11:44 06/28/18 22:38 Flexeril - PO 5 mg Q8H PRN Administration MUSCLE SPASMS Docusate Sodium 100 mg 06/21/18 12:58 Colace - PO Q8H PRN CONSTIPATION Emollient Ointment 1 applic 06/15/18 22:00 06/29/18 09:49 Aquaphor - TP 1 applic BID TERRENCE Administration Enoxaparin Sodium 80 mg 06/22/18 22:30 06/29/18 09:47 Lovenox - SQ 80 mg BID TERRENCE Administration Fentanyl 1 patch 06/28/18 11:00 06/28/18 12:26 Duragesic 12mcg Patch - TD 1 patch Q72H TERRENCE Administration IV Flush 10 ml 06/15/18 11:04 06/28/18 10:00 Luisa-Cath Flush IVPUSH 10 ml PRN PRN Administration FLUSH IV Flush 10 ml 06/16/18 00:22 Luisa-Cath Flush IVPUSH PRN PRN protocol, maintain patency IV Flush 10 ml 06/19/18 10:56 Luisa-Cath Flush IVPUSH PRN PRN FLUSH Ertapenem 1 gm/ Sodium 50 mls @ 100 mls/hr 06/21/18 12:00 06/29/18 09:48 Chloride IVPB 100 mls/hr DAILY TERRENCE Administration Lactobacillus Acidophilus 1 tab 06/22/18 10:15 06/29/18 09:47 Bacid - PO 1 tab DAILY TERRENCE Administration Magnesium Oxide 400 mg 06/22/18 22:00 06/29/18 09:48 Mag-Ox - PO 400 mg BID TERRENCE Administration Miscellaneous 1 each 06/28/18 11:00 06/28/18 12:34 Duragesic Patch Waste TD 1 each PRN PRN Administration WASTE Multivitamins/Minerals/Vitamin C 1 tab 06/14/18 10:00 06/29/18 09:48 Tab-A-Vit - PO 1 tab DAILY TERRENCE Administration Non-Formulary Medication 1 each 06/14/18 16:00 06/29/18 10:15 Abacavir/Dolutegravir/Lamivudi [Triumeq Tablet] PO 1 each DAILY TERRENCE Administration Ondansetron HCl 8 mg 06/13/18 14:52 06/18/18 11:29 Zofran Injection IVPB 8 mg Q6H PRN Administration NAUSEA AND/OR VOMITING Oxycodone HCl 10 mg 06/25/18 00:11 06/29/18 09:47 Roxicodone - PO 10 mg Q8H PRN Administration PAIN LEVEL 6-10 Phenazopyridine HCl 100 mg 06/22/18 18:30 06/29/18 08:22 Pyridium - PO 100 mg PC TERRENCE Administration Potassium Chloride 20 meq 06/20/18 10:45 06/29/18 09:47 K-Dur - PO 20 meq DAILY TERRENCE Administration Simethicone 80 mg 06/15/18 11:06 06/29/18 13:34 Mylicon - PO 80 mg Q4H PRN Administration GAS Tiotropium [place] 2 puff 06/16/18 10:15 06/29/18 09:49 Spiriva Respimat IH 2 puff DAILY TERRENCE Administration Valacyclovir HCl 500 mg 06/14/18 16:15 06/29/18 09:48 Valtrex - PO 500 mg DAILY TERRENCE Administration ASSESSMENT/PLAN: 63 year old female with a PMH significant for Vivas's Palsy, HIV+ (follows at the [facility]), COPD, sarcoidosis and squamous cell anal cancer. She is s/p chemotherapy and 28 cycles of RT. Patient admitted under the medicine service for chemotherapy as she has too many comorbidities to manage as an outpatient. Squamous cell anal cancer - s/p 5-FU via right subclavian mediport - On Granix 480mcg daily, wbc 2.6 Volume overload - Caused by IVFs given to treat hypotension, d/ra 06/18 - Given dose of lasix 40 mg IV and Albumin 25 gm IV x 1 - Followed by renal Hypotension - Chronic - nl EF on echo - Trial of Midodrine ineffective - PO hydration, salt intake - Followed by cardiology Supraumbilical hernia - Reduced by surgeon, Dr. Shepherd, can be considered for minimal invasive operative repair (3-4 weeks) - Abdominal binder COPD - Stable - Duonebs prn HIV - On Haart therapy - Followed by Dr. Herndon ESBL UTI - On Ertapenem 1gm daily - Contact precautions. - Followed by ID Urinary retention - Possible SE from Midodrine - Reyes removed - No issues urinating reported. Anxiety - Klonopin bid prn FEN - PO intake - Check electrolytes daily - Monitor nutrition. on ensure. dietary following Prophylaxis - SCDs - Physical therapy Visit type - Emergency Visit Emergency Visit: No - New Patient This patient is new to me today: No - Critical Care Critical Care patient: No
[2018-06-29] MEDS: PORTA CATH FLUSH 10 ML IVPUSH PRN (15:30)
--- NOTE | 2018-06-29 16:40 | PN ---
Teaching Attending Note Name of Resident: Penelope Ponce ATTENDING PHYSICIAN STATEMENT I saw and evaluated the patient. I reviewed the resident's note and discussed the case with the resident. I agree with the resident's findings and plan as documented. SUBJECTIVE: Patient seen and examined Still with watery stools Still with poor p.o. intake Slow diuresis requiring BP support with albumin Last Vital Signs Temp Pulse Resp BP Pulse Ox 98.4 F 108 H 17 108/58 L 94 L 06/29/18 10:00 06/29/18 10:00 06/29/18 10:00 06/29/18 10:00 06/29/18 09:00 HEENT: DENNY, EOM Intact Oropharynx: No thrush, No mucositis, right facial Cor: RSR, No murmurs, No gallops Lungsdiminished breath sounds bilaterally Abd: Soft, Normal bowel sounds, No organomegaly Ext:No significant edema Skin: No rashes, Integument intact CBC, BMP 06/29/18 06:15 06/29/18 06:15 Current Medications Generic Name Dose Route Start Last Admin Trade Name Freq PRN Reason Stop Dose Admin Acetaminophen 325 mg 06/13/18 17:05 06/29/18 01:15 Tylenol - PO 325 mg Q8H PRN Administration PAIN LEVEL 6-10 Calcium Carbonate 500 mg 06/22/18 10:00 06/29/18 09:47 Os-Madan 500mg - PO 500 mg BID TERRENCE Administration Clonazepam 0.25 mg 06/28/18 20:22 06/29/18 13:47 Klonopin - PO 0.25 mg BID PRN Administration ANXIETY Cyclobenzaprine HCl 5 mg 06/18/18 11:44 06/28/18 22:38 Flexeril - PO 5 mg Q8H PRN Administration MUSCLE SPASMS Docusate Sodium 100 mg 06/21/18 12:58 Colace - PO Q8H PRN CONSTIPATION Emollient Ointment 1 applic 06/15/18 22:00 06/29/18 09:49 Aquaphor - TP 1 applic BID TERRENCE Administration Enoxaparin Sodium 80 mg 06/22/18 22:30 06/29/18 09:47 Lovenox - SQ 80 mg BID TERRENCE Administration Fentanyl 1 patch 06/28/18 11:00 06/28/18 12:26 Duragesic 12mcg Patch - TD 1 patch Q72H TERRENCE Administration IV Flush 10 ml 06/15/18 11:04 06/29/18 15:30 Luisa-Cath Flush IVPUSH 10 ml PRN PRN Administration FLUSH IV Flush 10 ml 06/16/18 00:22 Luisa-Cath Flush IVPUSH PRN PRN protocol, maintain patency IV Flush 10 ml 06/19/18 10:56 Luisa-Cath Flush IVPUSH PRN PRN FLUSH Ertapenem 1 gm/ Sodium 50 mls @ 100 mls/hr 06/21/18 12:00 06/29/18 09:48 Chloride IVPB 100 mls/hr DAILY TERRENCE Administration Lactobacillus Acidophilus 1 tab 06/22/18 10:15 06/29/18 09:47 Bacid - PO 1 tab DAILY TERRENCE Administration Loperamide HCl 2 mg 06/29/18 15:03 Imodium - PO Q8H PRN DIARRHEA Magnesium Oxide 400 mg 06/22/18 22:00 06/29/18 09:48 Mag-Ox - PO 400 mg BID TERRENCE Administration Miscellaneous 1 each 06/28/18 11:00 06/28/18 12:34 Duragesic Patch Waste TD 1 each PRN PRN Administration WASTE Multivitamins/Minerals/Vitamin C 1 tab 06/14/18 10:00 06/29/18 09:48 Tab-A-Vit - PO 1 tab DAILY TERRENCE Administration Non-Formulary Medication 1 each 06/14/18 16:00 06/29/18 10:15 Abacavir/Dolutegravir/Lamivudi [Triumeq Tablet] PO 1 each DAILY TERRENCE Administration Ondansetron HCl 8 mg 06/13/18 14:52 06/18/18 11:29 Zofran Injection IVPB 8 mg Q6H PRN Administration NAUSEA AND/OR VOMITING Oxycodone HCl 10 mg 06/25/18 00:11 06/29/18 09:47 Roxicodone - PO 10 mg Q8H PRN Administration PAIN LEVEL 6-10 Phenazopyridine HCl 100 mg 06/22/18 18:30 06/29/18 08:22 Pyridium - PO 100 mg PC TERRENCE Administration Potassium Chloride 20 meq 06/20/18 10:45 06/29/18 09:47 K-Dur - PO 20 meq DAILY TERRENCE Administration Simethicone 80 mg 06/15/18 11:06 06/29/18 13:34 Mylicon - PO 80 mg Q4H PRN Administration GAS Tiotropium Dixon 2 puff 06/16/18 10:15 06/29/18 09:49 Spiriva Respimat IH 2 puff DAILY TERRENCE Administration Valacyclovir HCl 500 mg 06/14/18 16:15 06/29/18 09:48 Valtrex - PO 500 mg DAILY TERRENCE Administration Impression: UTI HIV ANAL CA-s/pRT/chemotherapy Pancytopenia Diarrhea Plan: Stool culture for c.difficle Continue slow diuresis Continue to monitor labs OBJECTIVE: ASSESSMENT AND PLAN:
--- NOTE | 2018-06-29 16:56 | PN ---
Progress Note (short form) - Note Progress Note: dysuria improved some diarrhea today Vital Signs Period Temp Pulse Resp BP Sys/Wade Pulse Ox Last 24 Hr 98.4 F-99.3 F 100-108 17-18 91-108/52-58 94-96 cor-rrr lungs clear abd soft,nt ext +edema CBC, BMP 06/29/18 06:15 06/29/18 06:15 Microbiology 06/28/18 16:00 Stool Clostridium difficile Antigen (JENNIFER) - Final 06/28/18 16:00 Stool Clostridium difficile Toxin Assay - Final 06/25/18 09:45 Blood - Peripheral Venous Blood Culture - Preliminary NO GROWTH OBTAINED AFTER 96 HOURS, INCUBATION TO CONTINUE FOR 1 DAYS. 06/25/18 09:40 Blood - Peripheral Venous Blood Culture - Preliminary NO GROWTH OBTAINED AFTER 96 HOURS, INCUBATION TO CONTINUE FOR 1 DAYS. 06/21/18 11:55 Blood - Peripheral Venous Blood Culture - Final NO GROWTH AFTER 5 DAYS INCUBATION 06/21/18 12:00 Blood - Peripheral Venous Blood Culture - Final NO GROWTH AFTER 5 DAYS INCUBATION 06/25/18 13:05 Urine - Urine Clean Catch Urine Culture - Final NO GROWTH OBTAINED 06/23/18 14:30 Urine - Urine Clean Catch Urine Culture - Final NO GROWTH OBTAINED 06/19/18 18:45 Urine - Urine Reyes Urine Culture - Final Klebsiella Pneumoniae - Esbl 06/16/18 12:50 Stool Salmonella/Shigella Culture - Final NO GROWTH OF SALMONELLA OR SHIGELLA SPECIES OBTAINED 06/16/18 12:50 Stool Campylobacter Culture - Final NO GROWTH OF CAMPYLOBACTER SPECIES OBTAINED 06/16/18 12:50 Stool Yersinia Culture - Final NO GROWTH OF YERSINIA SPECIES OBTAINED 06/16/18 12:50 Stool Vibrio Culture - Final NO GROWTH OF VIBRIO SPECIES OBTAINED 06/16/18 12:50 Stool Escherichia coli 0157 Culture - Final NO GROWTH OF E COLI 0157 OBTAINED 06/16/18 12:50 Stool Clostridium difficile Antigen (JENNIFER) - Final 06/16/18 12:50 Stool Clostridium difficile Toxin Assay - Final a/p chills-was recultured, would get stool cdiff as well as she is on antibiotics UTI- kleb esbl continue ertapenem day #9 of 10 tomorrow is last dose abdominal pain- umbilical hernia- reduced at bedside, f/u surgery-will need elective surgery in the near future reports less pain d/w Dr Shepherd- she needs to wear the binder anal cancer completed chemo chemo per oncology HIV- continue art, continue valtrex leukopenia resolved -s/p granix- contact isolation- history esbl Kleb d/w patient at length Problem List - Problems (1) Anal cancer Code(s): C21.0 - MALIGNANT NEOPLASM OF ANUS, UNSPECIFIED (2) HIV (human immunodeficiency virus infection) Code(s): Z21 - ASYMPTOMATIC HUMAN IMMUNODEFICIENCY VIRUS INFECTION STATUS
[2018-06-29] MEDS: CYCLOBENZAPRINE HCL 10 MG TABLET (FP) PO PRN (22:44)
[2018-06-30] MEDS: ACETAMINOPHEN 325 MG TABLET (FP) PO PRN (01:39)
[2018-06-30] MEDS: oxyCODONE HCL 5 MG TABLET PO PRN ×3 (01:39→19:22)
[2018-06-30 06:44] LABS: BASO % 0.5 % (0-2.0); EOS % 6.2 % (0-4.5); HEMATOCRIT 25.7 % (32.4-45.2); HEMOGLOBIN 8.4 GM/dL (10.7-15.3); LYMPH % 19.1 % (8-40); MCH 34.3 pg (25.7-33.7); MCHC 32.8 g/dl (32.0-36.0); MEAN CELL VOLUME 104.6 fl (80-96); MEAN PLT VOLUME 8.5 fl (7.5-11.1); MONO % 11.5 % (3.8-10.2); NEUT % 62.7 % (42.8-82.8); PLATELET COUNT 67 K/MM3 (134-434); RBC 2.45 M/mm3 (3.60-5.2); WHITE BLOOD COUNT 2.7 K/mm3 (4.0-10.0)
[2018-06-30 07:17] LABS: ALBUMIN 2.1 g/dl (3.4-5.0); ALK PHOS 88 U/L (45-117); ANION GAP 6 MMOL/L (8-16); BILIRUBIN,TOTAL 0.8 mg/dL (0.2-1); BLOOD UREA NITROGEN 8 mg/dL (7-18); CHLORIDE 105 mmol/L (98-107); CO2 29 mmol/L (21-32); CREATININE 0.8 mg/dL (0.55-1.3); GLUCOSE,RANDOM 82 mg/dL (74-106); MAGNESIUM 1.7 mg/dL (1.8-2.4); POTASSIUM 3.5 mmol/L (3.5-5.1); SGOT/AST 19 U/L (15-37); SGPT/ALT 14 U/L (13-61); SODIUM 140 mmol/L (136-145); TOT PROT 5.5 g/dl (6.4-8.2)
[2018-06-30] MEDS ORDERED: PT OWN MED DRAWER 7, Y5N ONE (09:34)
[2018-06-30] MEDS: ENOXAPARIN NA (PORCINE) 80 MG/0.8 ML DISP.SYRIN SQ SCH ×2 (10:04→21:05)
[2018-06-30] MEDS: PHENAZOPYRIDINE HCL 100 MG TABLET (FP) PO SCH ×3 (10:04→18:34)
[2018-06-30] MEDS: ERTAPENEM SODIUM 1 GM in SODIUM CHLORIDE 50 ML IVPB SCH (10:05)
[2018-06-30] MEDS: MINERAL OIL/PET HY-PHL TOPICAL OINTMENT 454 GM JAR TP SCH ×2 (10:05→21:05)
[2018-06-30] MEDS: LACTOBACILLUS ACIDOPHILUS 1 TABLET PO SCH (10:05)
[2018-06-30] MEDS: MULTIVITAMINS (DAILY MVI) TABLET (FP) PO SCH (10:06)
[2018-06-30] MEDS: POTASSIUM CHLORIDE TABS 10 MEQ TABLET.ER (FP) PO SCH (10:06)
[2018-06-30] MEDS: MAGNESIUM OXIDE 400 MG TABLET (FP) PO SCH ×2 (10:06→21:05)
[2018-06-30] MEDS: valACYclovir HCL 500 MG TABLET (FP) PO SCH (10:06)
[2018-06-30] MEDS: CALCIUM (OYSTER SHELL) 500 MG TABLET (FP) PO SCH ×2 (10:06→21:05)
[2018-06-30] MEDS: TIOTROPIUM BROMIDE 2.5 MCG (SPIRIVA) RESPIMAT INHALER IH SCH (10:31)
--- NOTE | 2018-06-30 10:36 | PN ---
Progress Note (short form) - Note Progress Note: much more animated today-feels well no complaints Vital Signs Period Temp Pulse Resp BP Sys/Wade Pulse Ox Last 24 Hr 98.4 F-98.7 F 96-111 18-18 82-93/52-59 96 cor-rrr lungs clear abd soft,nt ext +pedal edema CBC, BMP 06/30/18 05:31 06/30/18 05:31 cdiff negative a/p UTI- kleb esbl continue ertapenem day #1o of 10-will d/c abdominal pain- umbilical hernia- reduced at bedside, f/u surgery-will need elective surgery in the near future reports less pain d/w Dr Shepherd- she needs to wear the binder anal cancer completed chemo chemo per oncology HIV- continue art, continue valtrex leukopenia resolved -s/p granix- pedal edema- diuresis per renal contact isolation- history esbl Kleb Problem List - Problems (1) Anal cancer Code(s): C21.0 - MALIGNANT NEOPLASM OF ANUS, UNSPECIFIED (2) HIV (human immunodeficiency virus infection) Code(s): Z21 - ASYMPTOMATIC HUMAN IMMUNODEFICIENCY VIRUS INFECTION STATUS
--- NOTE | 2018-06-30 10:58 | PN ---
Physical Exam: SUBJECTIVE: Patient seen and examined. She reports she is feeling well today. Her pain is well controlled, no n/v/d. She is not drinking her Ensure because it causes her diarrhea. She has not been wearing her abdominal binder because it is too uncomfortable and it rides up past where the actual hernia is. OBJECTIVE: Vital Signs Period Temp Pulse Resp BP Sys/Wade Pulse Ox Last 24 Hr 98.4 F-98.7 F 96-111 18-18 82-93/52-59 96 GENERAL: The patient is awake, alert, and fully oriented, in no acute distress. HEAD: Normal with no signs of trauma. EYES: PERRL, extraocular movements intact, sclera anicteric, conjunctiva clear. No ptosis. ENT: Ears normal, nares patent, oropharynx clear without exudates, moist mucous membranes. NECK: Trachea midline, full range of motion, supple. LUNGS: Expiratory wheeze, no crackles, no accessory muscle use. HEART: Regular rate and rhythm, S1, S2 without murmur, rub or gallop. ABDOMEN: +reducable round protrusion in RLQ, slightly TTP, +BS EXTREMITIES: +2 edema to b/l feet, 2+ pulses, warm, well-perfused, NEUROLOGICAL: No facial droop, normal speech, slow, steady gate PSYCH: Normal mood, normal affect. SKIN: Warm, dry, no rashes or lesions noted Laboratory Results - last 24 hr 06/30/18 06/30/18 05:31 05:31 WBC 2.7 L RBC 2.45 L Hgb 8.4 L Hct 25.7 L MCV 104.6 H MCH 34.3 H MCHC 32.8 RDW 18.0 H Plt Count 67 L MPV 8.5 Absolute Neuts (auto) 1.7 Neutrophils % 62.7 Lymphocytes % 19.1 Monocytes % 11.5 H Eosinophils % 6.2 H Basophils % 0.5 Nucleated RBC % 0 Sodium 140 Potassium 3.5 Chloride 105 Carbon Dioxide 29 Anion Gap 6 L BUN 8 Creatinine 0.8 Creat Clearance w eGFR > 60 Random Glucose 82 Calcium 7.0 L Magnesium 1.7 L Total Bilirubin 0.8 AST 19 ALT 14 Alkaline Phosphatase 88 Total Protein 5.5 L Albumin 2.1 L Active Medications Generic Name Dose Route Start Last Admin Trade Name Freq PRN Reason Stop Dose Admin Acetaminophen 325 mg 06/13/18 17:05 06/30/18 01:39 Tylenol - PO 325 mg Q8H PRN Administration PAIN LEVEL 6-10 Calcium Carbonate 500 mg 06/22/18 10:00 06/30/18 10:06 Os-Madan 500mg - PO 500 mg BID TERRENCE Administration Clonazepam 0.25 mg 06/28/18 20:22 06/29/18 13:47 Klonopin - PO 0.25 mg BID PRN Administration ANXIETY Cyclobenzaprine HCl 5 mg 06/18/18 11:44 06/29/18 22:44 Flexeril - PO 5 mg Q8H PRN Administration MUSCLE SPASMS Docusate Sodium 100 mg 06/21/18 12:58 Colace - PO Q8H PRN CONSTIPATION Emollient Ointment 1 applic 06/15/18 22:00 06/30/18 10:05 Aquaphor - TP 1 applic BID TERRENCE Administration Enoxaparin Sodium 80 mg 06/22/18 22:30 06/30/18 10:04 Lovenox - SQ 80 mg BID TERRENCE Administration Fentanyl 1 patch 06/28/18 11:00 06/28/18 12:26 Duragesic 12mcg Patch - TD 1 patch Q72H TERRENCE Administration IV Flush 10 ml 06/15/18 11:04 06/29/18 15:30 Luisa-Cath Flush IVPUSH 10 ml PRN PRN Administration FLUSH IV Flush 10 ml 06/16/18 00:22 Luisa-Cath Flush IVPUSH PRN PRN protocol, maintain patency IV Flush 10 ml 06/19/18 10:56 Luisa-Cath Flush IVPUSH PRN PRN FLUSH Lactobacillus Acidophilus 1 tab 06/22/18 10:15 06/30/18 10:05 Bacid - PO 1 tab DAILY TERRENCE Administration Loperamide HCl 2 mg 06/29/18 15:03 Imodium - PO Q8H PRN DIARRHEA Magnesium Oxide 400 mg 06/22/18 22:00 06/30/18 10:06 Mag-Ox - PO 400 mg BID TERRENCE Administration Miscellaneous 1 each 06/28/18 11:00 06/28/18 12:34 Duragesic Patch Waste TD 1 each PRN PRN Administration WASTE Multivitamins/Minerals/Vitamin C 1 tab 06/14/18 10:00 06/30/18 10:06 Tab-A-Vit - PO 1 tab DAILY TERRENCE Administration Non-Formulary Medication 1 each 06/14/18 16:00 06/30/18 10:22 Abacavir/Dolutegravir/Lamivudi [Triumeq Tablet] PO 1 each DAILY TERRENCE Administration Ondansetron HCl 8 mg 06/13/18 14:52 06/18/18 11:29 Zofran Injection IVPB 8 mg Q6H PRN Administration NAUSEA AND/OR VOMITING Oxycodone HCl 10 mg 06/25/18 00:11 06/30/18 10:28 Roxicodone - PO 10 mg Q8H PRN Administration PAIN LEVEL 6-10 Phenazopyridine HCl 100 mg 06/22/18 18:30 06/30/18 10:04 Pyridium - PO 100 mg PC TERRENCE Administration Potassium Chloride 20 meq 06/20/18 10:45 06/30/18 10:06 K-Dur - PO 20 meq DAILY TERRENCE Administration Simethicone 80 mg 06/15/18 11:06 06/29/18 13:34 Mylicon - PO 80 mg Q4H PRN Administration GAS Tiotropium [place] 2 puff 06/16/18 10:15 06/30/18 10:31 Spiriva Respimat IH 2 puff DAILY TERRENCE Administration Valacyclovir HCl 500 mg 06/14/18 16:15 06/30/18 10:06 Valtrex - PO 500 mg DAILY TERRENCE Administration ASSESSMENT/PLAN: 63 year old female with a PMH significant for Vivas's Palsy, HIV+ (follows at the [facility]), COPD, sarcoidosis and squamous cell anal cancer. She is s/p chemotherapy and 28 cycles of RT. Patient admitted under the medicine service for chemotherapy as she has too many comorbidities to manage as an outpatient. Squamous cell anal cancer - s/p 5-FU via right subclavian mediport - On Granix 480mcg daily, wbc 2.7 Volume overload - Caused by IVFs given to treat hypotension, d/ra 06/18 - Given dose of lasix 40 mg IV and Albumin 25 gm IV x 1 yesterday per renal - Followed by renal Hypotension - Chronic - nl EF on echo - Trial of Midodrine ineffective - PO hydration, salt intake - Followed by cardiology Supraumbilical hernia - Reduced by surgeon, Dr. Shepherd, can be considered for minimal invasive operative repair (3-4 weeks) - Patient non-compliant with abdominal binder COPD - Stable - Duonebs prn HIV - On Haart therapy - Followed by Dr. Herndon ESBL UTI - Day 05/18 of course of Ertapenem - Contact precautions - Followed by ID Urinary retention - Possible SE from Midodrine - Reyes removed - No issues urinating reported. Anxiety - Klonopin bid prn FEN - PO intake - Check electrolytes daily - Appetite slowly improving since chemo, on Ensure, followed by dietary. Prophylaxis - SCDs - Physical therapy FULL CODE Visit type - Emergency Visit Emergency Visit: No - New Patient This patient is new to me today: No - Critical Care Critical Care patient: No
--- NOTE | 2018-06-30 12:11 | PN ---
Progress Note (short form) - Note Progress Note: Patient seen and examined Still with some diarrhea Continuing with slow diuresis Last Vital Signs Temp Pulse Resp BP Pulse Ox 98.1 F 99 H 16 92/54 L 96 06/30/18 10:00 06/30/18 10:00 06/30/18 10:00 06/30/18 10:00 06/29/18 21:00 HEENT: DENNY, EOM Intact Oropharynx: No thrush, No mucositis, right facial Cor: RSR, No murmurs, No gallops Lungs: diminished breath sounds bilaterally Abd: distended reducible umbilical hernia Ext:LE edema Skin: No rashes, Integument intact CBC, BMP 06/30/18 05:31 06/30/18 05:31 Current Medications Generic Name Dose Route Start Last Admin Trade Name Freq PRN Reason Stop Dose Admin Acetaminophen 325 mg 06/13/18 17:05 06/30/18 01:39 Tylenol - PO 325 mg Q8H PRN Administration PAIN LEVEL 6-10 Calcium Carbonate 500 mg 06/22/18 10:00 06/30/18 10:06 Os-Madan 500mg - PO 500 mg BID TERRENCE Administration Clonazepam 0.25 mg 06/28/18 20:22 06/29/18 13:47 Klonopin - PO 0.25 mg BID PRN Administration ANXIETY Cyclobenzaprine HCl 5 mg 06/18/18 11:44 06/29/18 22:44 Flexeril - PO 5 mg Q8H PRN Administration MUSCLE SPASMS Docusate Sodium 100 mg 06/21/18 12:58 Colace - PO Q8H PRN CONSTIPATION Emollient Ointment 1 applic 06/15/18 22:00 06/30/18 10:05 Aquaphor - TP 1 applic BID TERRENCE Administration Enoxaparin Sodium 80 mg 06/22/18 22:30 06/30/18 10:04 Lovenox - SQ 80 mg BID TERRENCE Administration Fentanyl 1 patch 06/28/18 11:00 06/28/18 12:26 Duragesic 12mcg Patch - TD 1 patch Q72H TERRENCE Administration IV Flush 10 ml 06/15/18 11:04 06/29/18 15:30 Luisa-Cath Flush IVPUSH 10 ml PRN PRN Administration FLUSH IV Flush 10 ml 06/16/18 00:22 Luisa-Cath Flush IVPUSH PRN PRN protocol, maintain patency IV Flush 10 ml 06/19/18 10:56 Luisa-Cath Flush IVPUSH PRN PRN FLUSH Lactobacillus Acidophilus 1 tab 06/22/18 10:15 06/30/18 10:05 Bacid - PO 1 tab DAILY TERRENCE Administration Loperamide HCl 2 mg 06/29/18 15:03 Imodium - PO Q8H PRN DIARRHEA Magnesium Oxide 400 mg 06/22/18 22:00 06/30/18 10:06 Mag-Ox - PO 400 mg BID TERRENCE Administration Miscellaneous 1 each 06/28/18 11:00 06/28/18 12:34 Duragesic Patch Waste TD 1 each PRN PRN Administration WASTE Multivitamins/Minerals/Vitamin C 1 tab 06/14/18 10:00 06/30/18 10:06 Tab-A-Vit - PO 1 tab DAILY TERRENCE Administration Non-Formulary Medication 1 each 06/14/18 16:00 06/30/18 10:22 Abacavir/Dolutegravir/Lamivudi [Triumeq Tablet] PO 1 each DAILY TERRENCE Administration Ondansetron HCl 8 mg 06/13/18 14:52 06/18/18 11:29 Zofran Injection IVPB 8 mg Q6H PRN Administration NAUSEA AND/OR VOMITING Oxycodone HCl 10 mg 06/25/18 00:11 06/30/18 10:28 Roxicodone - PO 10 mg Q8H PRN Administration PAIN LEVEL 6-10 Phenazopyridine HCl 100 mg 06/22/18 18:30 06/30/18 10:04 Pyridium - PO 100 mg PC TERRENCE Administration Potassium Chloride 20 meq 06/20/18 10:45 06/30/18 10:06 K-Dur - PO 20 meq DAILY TERRENCE Administration Simethicone 80 mg 06/15/18 11:06 06/29/18 13:34 Mylicon - PO 80 mg Q4H PRN Administration GAS Tiotropium [place] 2 puff 06/16/18 10:15 06/30/18 10:31 Spiriva Respimat IH 2 puff DAILY TERRENCE Administration Valacyclovir HCl 500 mg 06/14/18 16:15 06/30/18 10:06 Valtrex - PO 500 mg DAILY TERRENCE Administration Impression; Anal ca - s/p RT/chemotherapy UTI- completing course of antibiotics Pancytopenia- secondary to chemotherapy Umbilical hernia-will need surgery in future Fluid overload- slow diuresis with BP monitoring.
--- NOTE | 2018-06-30 13:12 | PN ---
Progress Note, Physician History of Present Illness: Pt seen and examined at bedside. She is awake and alert. She denies shortness of breath. - Current Medication List Current Medications: Active Medications Acetaminophen (Tylenol -) 325 mg PO Q8H PRN PRN Reason: PAIN LEVEL 6-10 Last Admin: 06/30/18 01:39 Dose: 325 mg Calcium Carbonate (Os-Madan 500mg -) 500 mg PO BID [facility] Last Admin: 06/30/18 10:06 Dose: 500 mg Clonazepam (Klonopin -) 0.25 mg PO BID PRN PRN Reason: ANXIETY Last Admin: 06/29/18 13:47 Dose: 0.25 mg Cyclobenzaprine HCl (Flexeril -) 5 mg PO Q8H PRN PRN Reason: MUSCLE SPASMS Last Admin: 06/29/18 22:44 Dose: 5 mg Docusate Sodium (Colace -) 100 mg PO Q8H PRN PRN Reason: CONSTIPATION Emollient Ointment (Aquaphor -) 1 applic TP BID [facility] Last Admin: 06/30/18 10:05 Dose: 1 applic Enoxaparin Sodium (Lovenox -) 80 mg SQ BID [facility] Last Admin: 06/30/18 10:04 Dose: 80 mg Fentanyl (Duragesic 12mcg Patch -) 1 patch TD Q72H [facility] Last Admin: 06/28/18 12:26 Dose: 1 patch IV Flush (Luisa-Cath Flush) 10 ml IVPUSH PRN PRN PRN Reason: FLUSH Last Admin: 06/29/18 15:30 Dose: 10 ml IV Flush (Luisa-Cath Flush) 10 ml IVPUSH PRN PRN PRN Reason: protocol, maintain patency IV Flush (Luisa-Cath Flush) 10 ml IVPUSH PRN PRN PRN Reason: FLUSH Lactobacillus Acidophilus (Bacid -) 1 tab PO DAILY [facility] Last Admin: 06/30/18 10:05 Dose: 1 tab Loperamide HCl (Imodium -) 2 mg PO Q8H PRN PRN Reason: DIARRHEA Magnesium Oxide (Mag-Ox -) 400 mg PO BID [facility] Last Admin: 06/30/18 10:06 Dose: 400 mg Miscellaneous (Duragesic Patch Waste) 1 each TD PRN PRN PRN Reason: WASTE Last Admin: 06/28/18 12:34 Dose: 1 each Multivitamins/Minerals/Vitamin C (Tab-A-Vit -) 1 tab PO DAILY [facility] Last Admin: 06/30/18 10:06 Dose: 1 tab Non-Formulary Medication (Abacavir/Dolutegravir/Lamivudi [Triumeq Tablet]) 1 each PO DAILY [facility] Last Admin: 06/30/18 10:22 Dose: 1 each Ondansetron HCl (Zofran Injection) 8 mg IVPB Q6H PRN PRN Reason: NAUSEA AND/OR VOMITING Last Admin: 06/18/18 11:29 Dose: 8 mg Oxycodone HCl (Roxicodone -) 10 mg PO Q8H PRN PRN Reason: PAIN LEVEL 6-10 Last Admin: 06/30/18 10:28 Dose: 10 mg Phenazopyridine HCl (Pyridium -) 100 mg PO PC [facility] Last Admin: 06/30/18 10:04 Dose: 100 mg Potassium Chloride (K-Dur -) 20 meq PO DAILY [facility] Last Admin: 06/30/18 10:06 Dose: 20 meq Simethicone (Mylicon -) 80 mg PO Q4H PRN PRN Reason: GAS Last Admin: 06/29/18 13:34 Dose: 80 mg Tiotropium [place] (Spiriva Respimat) 2 puff IH DAILY [facility] Last Admin: 06/30/18 10:31 Dose: 2 puff Valacyclovir HCl (Valtrex -) 500 mg PO DAILY [facility] Last Admin: 06/30/18 10:06 Dose: 500 mg - Objective Vital Signs: Vital Signs Temperature 98.1 F 06/30/18 10:00 Pulse Rate 99 H 06/30/18 10:00 Respiratory Rate 16 06/30/18 10:00 Blood Pressure 92/54 L 06/30/18 10:00 O2 Sat by Pulse Oximetry (%) 96 06/29/18 21:00 Constitutional: Yes: Calm Eyes: Yes: Conjunctiva Clear HENT: Yes: Atraumatic Cardiovascular: Yes: S1, S2 Respiratory: Yes: CTA Bilaterally Gastrointestinal: Yes: Soft Genitourinary: Yes: WNL Edema: Yes Edema: LLE: 1+, RLE: 1+ Neurological: Yes: Oriented Psychiatric: Yes: Oriented Labs: CBC, BMP 06/30/18 05:31 06/30/18 05:31 INR, PTT INR 1.22 (0.83-1.09) H 06/15/18 15:30 Problem List - Problems (1) Fluid overload Code(s): E87.70 - FLUID OVERLOAD, UNSPECIFIED Assessment/Plan Current Medications Generic Name Dose Route Start Last Admin Trade Name Freq PRN Reason Stop Dose Admin Acetaminophen 325 mg 06/13/18 17:05 06/30/18 01:39 Tylenol - PO 325 mg Q8H PRN Administration PAIN LEVEL 6-10 Calcium Carbonate 500 mg 06/22/18 10:00 06/30/18 10:06 Os-Madan 500mg - PO 500 mg BID TERRENCE Administration Clonazepam 0.25 mg 06/28/18 20:22 06/29/18 13:47 Klonopin - PO 0.25 mg BID PRN Administration ANXIETY Cyclobenzaprine HCl 5 mg 06/18/18 11:44 06/29/18 22:44 Flexeril - PO 5 mg Q8H PRN Administration MUSCLE SPASMS Docusate Sodium 100 mg 06/21/18 12:58 Colace - PO Q8H PRN CONSTIPATION Emollient Ointment 1 applic 06/15/18 22:00 06/30/18 10:05 Aquaphor - TP 1 applic BID TERRENCE Administration Enoxaparin Sodium 80 mg 06/22/18 22:30 06/30/18 10:04 Lovenox - SQ 80 mg BID TERRENCE Administration Fentanyl 1 patch 06/28/18 11:00 06/28/18 12:26 Duragesic 12mcg Patch - TD 1 patch Q72H TERRENCE Administration IV Flush 10 ml 06/15/18 11:04 06/29/18 15:30 Luisa-Cath Flush IVPUSH 10 ml PRN PRN Administration FLUSH IV Flush 10 ml 06/16/18 00:22 Luisa-Cath Flush IVPUSH PRN PRN protocol, maintain patency IV Flush 10 ml 06/19/18 10:56 Luisa-Cath Flush IVPUSH PRN PRN FLUSH Lactobacillus Acidophilus 1 tab 06/22/18 10:15 06/30/18 10:05 Bacid - PO 1 tab DAILY TERRENCE Administration Loperamide HCl 2 mg 06/29/18 15:03 Imodium - PO Q8H PRN DIARRHEA Magnesium Oxide 400 mg 06/22/18 22:00 06/30/18 10:06 Mag-Ox - PO 400 mg BID TERRENCE Administration Miscellaneous 1 each 06/28/18 11:00 06/28/18 12:34 Duragesic Patch Waste TD 1 each PRN PRN Administration WASTE Multivitamins/Minerals/Vitamin C 1 tab 06/14/18 10:00 06/30/18 10:06 Tab-A-Vit - PO 1 tab DAILY TERRENCE Administration Non-Formulary Medication 1 each 06/14/18 16:00 06/30/18 10:22 Abacavir/Dolutegravir/Lamivudi [Triumeq Tablet] PO 1 each DAILY TERRENCE Administration Ondansetron HCl 8 mg 06/13/18 14:52 06/18/18 11:29 Zofran Injection IVPB 8 mg Q6H PRN Administration NAUSEA AND/OR VOMITING Oxycodone HCl 10 mg 06/25/18 00:11 06/30/18 10:28 Roxicodone - PO 10 mg Q8H PRN Administration PAIN LEVEL 6-10 Phenazopyridine HCl 100 mg 06/22/18 18:30 06/30/18 10:04 Pyridium - PO 100 mg PC TERRENCE Administration Potassium Chloride 20 meq 06/20/18 10:45 06/30/18 10:06 K-Dur - PO 20 meq DAILY TERRENCE Administration Simethicone 80 mg 06/15/18 11:06 06/29/18 13:34 Mylicon - PO 80 mg Q4H PRN Administration GAS Tiotropium [place] 2 puff 06/16/18 10:15 06/30/18 10:31 Spiriva Respimat IH 2 puff DAILY TERRENCE Administration Valacyclovir HCl 500 mg 06/14/18 16:15 06/30/18 10:06 Valtrex - PO 500 mg DAILY TERRENCE Administration Impression 1. volume overload 2. HIV 3. Hep B 4. Hep C 5. HTN 6. COPD Plan - will give an extra dose of potassium - will give a dose of lasix - repeat labs in am - check weight from today - edema is improving - encourage PO caloric intake - will follow Dr Forde
[2018-06-30] MEDS ORDERED: FUROSEMIDE 40 MG TABLET (FP) PO ONE (13:13)
[2018-06-30] MEDS ORDERED: POTASSIUM CHLORIDE TABS 20 MEQ TABLET.ER (FP) PO ONE (13:13)
[2018-06-30] MEDS: CYCLOBENZAPRINE HCL 10 MG TABLET (FP) PO PRN (13:29)
[2018-06-30] MEDS: LOPERAMIDE HCL 2 MG CAPSULE PO PRN (20:32)
[2018-07-01] MEDS: oxyCODONE HCL 5 MG TABLET PO PRN ×2 (06:02→22:41)
--- NOTE | 2018-07-01 07:53 | PN ---
Physical Exam: SUBJECTIVE: Patient seen and examined. Reporting watery diarrhea since yesterday , took PRN immodium, no episodes so far today. Abdominal pain well-controlled. Her leg edema is improving, she is elevating her legs and had a diuretic last night. Patient eager to return home. OBJECTIVE: Vital Signs Period Temp Pulse Resp BP Sys/Wade Pulse Ox Last 24 Hr 98.1 F-98.8 F 96-107 16-18 89-96/54-62 99-100 GENERAL: The patient is awake, alert, and fully oriented, in no acute distress. HEAD: Normal with no signs of trauma. EYES: PERRL, extraocular movements intact, sclera anicteric, conjunctiva clear. No ptosis. ENT: Ears normal, nares patent, oropharynx clear without exudates, moist mucous membranes. NECK: Trachea midline, full range of motion, supple. LUNGS: Expiratory wheeze, no crackles, no accessory muscle use. HEART: Regular rate and rhythm, S1, S2 without murmur, rub or gallop. ABDOMEN: +reducable round protrusion in RLQ, slightly TTP, +BS EXTREMITIES: +1 edema to b/l feet, 2+ pulses, warm, well-perfused, NEUROLOGICAL: No facial droop, normal speech, slow, steady gate PSYCH: Normal mood, normal affect. SKIN: Warm, dry, no rashes or lesions noted Active Medications Generic Name Dose Route Start Last Admin Trade Name Freq PRN Reason Stop Dose Admin Acetaminophen 325 mg 06/13/18 17:05 06/30/18 01:39 Tylenol - PO 325 mg Q8H PRN Administration PAIN LEVEL 6-10 Calcium Carbonate 500 mg 06/22/18 10:00 06/30/18 21:05 Os-Madan 500mg - PO 500 mg BID TERRENCE Administration Clonazepam 0.25 mg 06/28/18 20:22 06/29/18 13:47 Klonopin - PO 0.25 mg BID PRN Administration ANXIETY Cyclobenzaprine HCl 5 mg 06/18/18 11:44 06/30/18 13:29 Flexeril - PO 5 mg Q8H PRN Administration MUSCLE SPASMS Docusate Sodium 100 mg 06/21/18 12:58 Colace - PO Q8H PRN CONSTIPATION Emollient Ointment 1 applic 06/15/18 22:00 06/30/18 21:05 Aquaphor - TP 1 applic BID TERRENCE Administration Enoxaparin Sodium 80 mg 06/22/18 22:30 06/30/18 21:05 Lovenox - SQ 80 mg BID TERRENCE Administration Fentanyl 1 patch 06/28/18 11:00 06/28/18 12:26 Duragesic 12mcg Patch - TD 1 patch Q72H TERRENCE Administration IV Flush 10 ml 06/15/18 11:04 06/29/18 15:30 Luisa-Cath Flush IVPUSH 10 ml PRN PRN Administration FLUSH IV Flush 10 ml 06/16/18 00:22 Luisa-Cath Flush IVPUSH PRN PRN protocol, maintain patency IV Flush 10 ml 06/19/18 10:56 Luisa-Cath Flush IVPUSH PRN PRN FLUSH Lactobacillus Acidophilus 1 tab 06/22/18 10:15 06/30/18 10:05 Bacid - PO 1 tab DAILY TERRENCE Administration Loperamide HCl 2 mg 06/29/18 15:03 06/30/18 20:32 Imodium - PO 2 mg Q8H PRN Administration DIARRHEA Magnesium Oxide 400 mg 06/22/18 22:00 06/30/18 21:05 Mag-Ox - PO 400 mg BID TERRENCE Administration Miscellaneous 1 each 06/28/18 11:00 06/28/18 12:34 Duragesic Patch Waste TD 1 each PRN PRN Administration WASTE Multivitamins/Minerals/Vitamin C 1 tab 06/14/18 10:00 06/30/18 10:06 Tab-A-Vit - PO 1 tab DAILY TERRENCE Administration Non-Formulary Medication 1 each 06/14/18 16:00 06/30/18 10:22 Abacavir/Dolutegravir/Lamivudi [Triumeq Tablet] PO 1 each DAILY TERRENCE Administration Ondansetron HCl 8 mg 06/13/18 14:52 06/18/18 11:29 Zofran Injection IVPB 8 mg Q6H PRN Administration NAUSEA AND/OR VOMITING Oxycodone HCl 10 mg 06/25/18 00:11 07/01/18 06:02 Roxicodone - PO 10 mg Q8H PRN Administration PAIN LEVEL 6-10 Phenazopyridine HCl 100 mg 06/22/18 18:30 06/30/18 18:34 Pyridium - PO 100 mg PC TERRENCE Administration Potassium Chloride 20 meq 06/20/18 10:45 06/30/18 10:06 K-Dur - PO 20 meq DAILY TERRENCE Administration Simethicone 80 mg 06/15/18 11:06 06/29/18 13:34 Mylicon - PO 80 mg Q4H PRN Administration GAS Tiotropium [place] 2 puff 06/16/18 10:15 06/30/18 10:31 Spiriva Respimat IH 2 puff DAILY TERRENCE Administration Valacyclovir HCl 500 mg 06/14/18 16:15 06/30/18 10:06 Valtrex - PO 500 mg DAILY TERRENCE Administration ASSESSMENT/PLAN: 63 year old female with a PMH significant for Vivas's Palsy, HIV+ (follows at the [facility]), COPD, sarcoidosis and squamous cell anal cancer. She is s/p chemotherapy and 28 cycles of RT. Patient admitted under the medicine service for chemotherapy as she has too many comorbidities to manage as an outpatient. Squamous cell anal cancer - s/p 5-FU via right subclavian mediport - On Granix 480mcg daily, wbc 2.7 Volume overload - Caused by IVFs given to treat hypotension, d/ra 06/18 - Given dose of lasix 40 mg and KCl PO yesterday per renal - CMP pending - Followed by renal Hypotension - Chronic - nl EF on echo - Trial of Midodrine ineffective - PO hydration, salt intake - Followed by cardiology Supraumbilical hernia - Reduced by surgeon, Dr. Shepherd, can be considered for minimal invasive operative repair (3-4 weeks) - Patient non-compliant with abdominal binder COPD - Stable - Duonebs prn HIV - On Haart therapy - Followed by Dr. Herndon ESBL UTI - Completed 10 day course of Ertapenem yesterday - Urine culture pending - Contact precautions - Followed by ID Urinary retention - Possible SE from Midodrine - Reyes removed - No issues urinating reported. Diarrhea - Stool culture negative - Immodium PRN Anxiety - Klonopin bid prn FEN - PO intake - Check electrolytes daily - Appetite slowly improving since chemo, on Ensure, followed by dietary. Prophylaxis - SCDs - Physical therapy FULL CODE Visit type - Emergency Visit Emergency Visit: No - New Patient This patient is new to me today: No - Critical Care Critical Care patient: No
[2018-07-01 08:11] LABS: BLOOD UREA NITROGEN 6 mg/dL (7-18); CREATININE 0.7 mg/dL (0.55-1.3); GLUCOSE,RANDOM 71 mg/dL (74-106); SODIUM 139 mmol/L (136-145)
[2018-07-01 08:12] LABS: ALBUMIN 2.1 g/dl (3.4-5.0); ALK PHOS 94 U/L (45-117); ANION GAP 4 MMOL/L (8-16); BILIRUBIN,TOTAL 1.1 mg/dL (0.2-1); CALCIUM 7.2 mg/dL (8.5-10.1); CHLORIDE 106 mmol/L (98-107); CO2 29 mmol/L (21-32); SGOT/AST 24 U/L (15-37); SGPT/ALT 16 U/L (13-61); TOT PROT 5.9 g/dl (6.4-8.2)
[2018-07-01] MEDS: PHENAZOPYRIDINE HCL 100 MG TABLET (FP) PO SCH ×3 (10:00→18:04)
[2018-07-01] MEDS: MINERAL OIL/PET HY-PHL TOPICAL OINTMENT 454 GM JAR TP SCH ×2 (10:01→23:00)
[2018-07-01] MEDS: ENOXAPARIN NA (PORCINE) 80 MG/0.8 ML DISP.SYRIN SQ SCH ×2 (10:10→22:42)
[2018-07-01] MEDS: POTASSIUM CHLORIDE TABS 10 MEQ TABLET.ER (FP) PO SCH (10:10)
[2018-07-01] MEDS: LACTOBACILLUS ACIDOPHILUS 1 TABLET PO SCH (10:10)
[2018-07-01] MEDS: CALCIUM (OYSTER SHELL) 500 MG TABLET (FP) PO SCH ×2 (10:12→22:42)
[2018-07-01] MEDS: MAGNESIUM OXIDE 400 MG TABLET (FP) PO SCH ×2 (10:12→22:42)
[2018-07-01] MEDS: valACYclovir HCL 500 MG TABLET (FP) PO SCH (10:15)
[2018-07-01] MEDS: TIOTROPIUM BROMIDE 2.5 MCG (SPIRIVA) RESPIMAT INHALER IH SCH (10:16)
[2018-07-01] MEDS: MULTIVITAMINS (DAILY MVI) TABLET (FP) PO SCH (10:16)
--- NOTE | 2018-07-01 10:34 | PN ---
Progress Note (short form) - Note Progress Note: Patient seen and examined Has had 2 watery stools to date this AM To have prn immodium Continues with diuresis with good weight loss overnight Not dizzy nor light headed Last Vital Signs Temp Pulse Resp BP Pulse Ox 98.6 F 99 H 18 96/62 99 07/01/18 06:37 07/01/18 06:37 07/01/18 06:37 07/01/18 06:37 06/30/18 21:00 HEENT: DENNY, EOM Intact Oropharynx: No thrush, No mucositis,right facial Cor: RSR, No murmurs, No gallops Lungs: rhonchi ; diminished breath sounds Abd: Soft, Normal bowel sounds, No organomegaly, distended mildly tender umbilicus Ext:No significant edema Skin: No rashes, Integument intact CBC, BMP 06/30/18 05:31 07/01/18 06:15 Current Medications Generic Name Dose Route Start Last Admin Trade Name Freq PRN Reason Stop Dose Admin Acetaminophen 325 mg 06/13/18 17:05 06/30/18 01:39 Tylenol - PO 325 mg Q8H PRN Administration PAIN LEVEL 6-10 Calcium Carbonate 500 mg 06/22/18 10:00 06/30/18 21:05 Os-Madan 500mg - PO 500 mg BID TERRENCE Administration Clonazepam 0.25 mg 06/28/18 20:22 06/29/18 13:47 Klonopin - PO 0.25 mg BID PRN Administration ANXIETY Cyclobenzaprine HCl 5 mg 06/18/18 11:44 06/30/18 13:29 Flexeril - PO 5 mg Q8H PRN Administration MUSCLE SPASMS Docusate Sodium 100 mg 06/21/18 12:58 Colace - PO Q8H PRN CONSTIPATION Emollient Ointment 1 applic 06/15/18 22:00 06/30/18 21:05 Aquaphor - TP 1 applic BID TERRENCE Administration Enoxaparin Sodium 80 mg 06/22/18 22:30 06/30/18 21:05 Lovenox - SQ 80 mg BID TERRENCE Administration Fentanyl 1 patch 06/28/18 11:00 06/28/18 12:26 Duragesic 12mcg Patch - TD 1 patch Q72H TERRENCE Administration IV Flush 10 ml 06/15/18 11:04 06/29/18 15:30 Luisa-Cath Flush IVPUSH 10 ml PRN PRN Administration FLUSH IV Flush 10 ml 06/16/18 00:22 Luisa-Cath Flush IVPUSH PRN PRN protocol, maintain patency IV Flush 10 ml 06/19/18 10:56 Luisa-Cath Flush IVPUSH PRN PRN FLUSH Lactobacillus Acidophilus 1 tab 06/22/18 10:15 06/30/18 10:05 Bacid - PO 1 tab DAILY TERRENCE Administration Loperamide HCl 2 mg 06/29/18 15:03 06/30/18 20:32 Imodium - PO 2 mg Q8H PRN Administration DIARRHEA Magnesium Oxide 400 mg 06/22/18 22:00 06/30/18 21:05 Mag-Ox - PO 400 mg BID TERRENCE Administration Miscellaneous 1 each 06/28/18 11:00 06/28/18 12:34 Duragesic Patch Waste TD 1 each PRN PRN Administration WASTE Multivitamins/Minerals/Vitamin C 1 tab 06/14/18 10:00 06/30/18 10:06 Tab-A-Vit - PO 1 tab DAILY TERRENCE Administration Non-Formulary Medication 1 each 06/14/18 16:00 06/30/18 10:22 Abacavir/Dolutegravir/Lamivudi [Triumeq Tablet] PO 1 each DAILY TERRENCE Administration Ondansetron HCl 8 mg 06/13/18 14:52 06/18/18 11:29 Zofran Injection IVPB 8 mg Q6H PRN Administration NAUSEA AND/OR VOMITING Oxycodone HCl 10 mg 06/25/18 00:11 07/01/18 06:02 Roxicodone - PO 10 mg Q8H PRN Administration PAIN LEVEL 6-10 Phenazopyridine HCl 100 mg 06/22/18 18:30 06/30/18 18:34 Pyridium - PO 100 mg PC TERRENCE Administration Potassium Chloride 20 meq 06/20/18 10:45 06/30/18 10:06 K-Dur - PO 20 meq DAILY TERRENCE Administration Simethicone 80 mg 06/15/18 11:06 06/29/18 13:34 Mylicon - PO 80 mg Q4H PRN Administration GAS Tiotropium [place] 2 puff 06/16/18 10:15 06/30/18 10:31 Spiriva Respimat IH 2 puff DAILY TERRENCE Administration Valacyclovir HCl 500 mg 06/14/18 16:15 06/30/18 10:06 Valtrex - PO 500 mg DAILY TERRENCE Administration Impression: Anal ca S/P RT/chemotherapy Pancytopenia (not receivig neupogen) Falling platelet count - to monitor Diarrhea- immodium prn HIV - under therapy UTI - completed 10 day course of ertapenem. Volume overload- being diuresed Umbilical hernia - - in future umbilical hernia repair.
--- NOTE | 2018-07-01 11:10 | PN ---
Progress Note (short form) - Note Progress Note: s:no chest pain, palps, dyspnea. Current Medications Generic Name Dose Route Start Last Admin Trade Name Freq PRN Reason Stop Dose Admin Acetaminophen 325 mg 06/13/18 17:05 06/30/18 01:39 Tylenol - PO 325 mg Q8H PRN Administration PAIN LEVEL 6-10 Calcium Carbonate 500 mg 06/22/18 10:00 06/30/18 21:05 Os-Madan 500mg - PO 500 mg BID TERRENCE Administration Clonazepam 0.25 mg 06/28/18 20:22 06/29/18 13:47 Klonopin - PO 0.25 mg BID PRN Administration ANXIETY Cyclobenzaprine HCl 5 mg 06/18/18 11:44 06/30/18 13:29 Flexeril - PO 5 mg Q8H PRN Administration MUSCLE SPASMS Docusate Sodium 100 mg 06/21/18 12:58 Colace - PO Q8H PRN CONSTIPATION Emollient Ointment 1 applic 06/15/18 22:00 06/30/18 21:05 Aquaphor - TP 1 applic BID TERRENCE Administration Enoxaparin Sodium 80 mg 06/22/18 22:30 06/30/18 21:05 Lovenox - SQ 80 mg BID TERRENCE Administration Fentanyl 1 patch 06/28/18 11:00 06/28/18 12:26 Duragesic 12mcg Patch - TD 1 patch Q72H TERRENCE Administration IV Flush 10 ml 06/15/18 11:04 06/29/18 15:30 Luisa-Cath Flush IVPUSH 10 ml PRN PRN Administration FLUSH IV Flush 10 ml 06/16/18 00:22 Luisa-Cath Flush IVPUSH PRN PRN protocol, maintain patency IV Flush 10 ml 06/19/18 10:56 Luisa-Cath Flush IVPUSH PRN PRN FLUSH Lactobacillus Acidophilus 1 tab 06/22/18 10:15 06/30/18 10:05 Bacid - PO 1 tab DAILY TERRENCE Administration Loperamide HCl 2 mg 06/29/18 15:03 06/30/18 20:32 Imodium - PO 2 mg Q8H PRN Administration DIARRHEA Magnesium Oxide 400 mg 06/22/18 22:00 06/30/18 21:05 Mag-Ox - PO 400 mg BID TERRENCE Administration Miscellaneous 1 each 06/28/18 11:00 06/28/18 12:34 Duragesic Patch Waste TD 1 each PRN PRN Administration WASTE Multivitamins/Minerals/Vitamin C 1 tab 06/14/18 10:00 06/30/18 10:06 Tab-A-Vit - PO 1 tab DAILY TERRENCE Administration Non-Formulary Medication 1 each 06/14/18 16:00 06/30/18 10:22 Abacavir/Dolutegravir/Lamivudi [Triumeq Tablet] PO 1 each DAILY TERRENCE Administration Ondansetron HCl 8 mg 06/13/18 14:52 06/18/18 11:29 Zofran Injection IVPB 8 mg Q6H PRN Administration NAUSEA AND/OR VOMITING Oxycodone HCl 10 mg 06/25/18 00:11 07/01/18 06:02 Roxicodone - PO 10 mg Q8H PRN Administration PAIN LEVEL 6-10 Phenazopyridine HCl 100 mg 06/22/18 18:30 06/30/18 18:34 Pyridium - PO 100 mg PC TERRENCE Administration Potassium Chloride 20 meq 06/20/18 10:45 06/30/18 10:06 K-Dur - PO 20 meq DAILY TERRENCE Administration Simethicone 80 mg 06/15/18 11:06 06/29/18 13:34 Mylicon - PO 80 mg Q4H PRN Administration GAS Tiotropium [place] 2 puff 06/16/18 10:15 06/30/18 10:31 Spiriva Respimat IH 2 puff DAILY TERRENCE Administration Valacyclovir HCl 500 mg 06/14/18 16:15 06/30/18 10:06 Valtrex - PO 500 mg DAILY TERRENCE Administration Vital Signs: Vital Signs Period Temp Pulse Resp BP Sys/Wade Pulse Ox Last 24 Hr 98.5 F-98.8 F 96-107 -18 93-96/57-62 99 Constitutional: Yes: No Distress, Calm Eyes: Yes: Conjunctiva Clear Respiratory: cta bl nl eff Gastrointestinal: Yes: Normal Bowel Sounds, Soft Cardiovascular: Yes: Regular Rate and Rhythm JVD: No Heart Sounds: Yes: S1, S2 Musculoskeletal: No: Back Pain Extremities: No: Cold, Cyanosis Edema: trace le edema bl Integumentary: No: Jaundice diaphoresis Neurological: Yes: Alert, Oriented CBC, BMP 06/30/18 05:31 07/01/18 06:15 echo 06/2018: nl LV/RV, mild MR, mild TR Assessment/Plan Hypotension - nl EF on echo - pt reports chronically low bp, d/w Dr. Herndon as well, low BPs noted in clinic over years - got ivfs but then with some vol overload so dc ivfs 06/18 - ortho vitals unremarkable here - encouraged PO hydration, salt intake squamous cell anal cancer - chemo and pain control per primary team, onc incarcerated hernia - GI and surgery following COPD - stable, manage per primary HIV - on HAART, ID following UTI: -abx per ID le edema: -likely 3rd spacing 2/2 low alb. has improved with intermittent lasix.
[2018-07-01 11:26] LABS: BASO % 0.4 % (0-2.0); EOS % 6.2 % (0-4.5); HEMOGLOBIN 9.5 GM/dL (10.7-15.3); LYMPH % 17.4 % (8-40); MCH 36.4 pg (25.7-33.7); MCHC 35.2 g/dl (32.0-36.0); MEAN CELL VOLUME 103.4 fl (80-96); MEAN PLT VOLUME 8.8 fl (7.5-11.1); MONO % 9.9 % (3.8-10.2); NEUT % 66.1 % (42.8-82.8); PLATELET COUNT 89 K/MM3 (134-434); RBC 2.62 M/mm3 (3.60-5.2); RDW 17.9 % (11.6-15.6); WHITE BLOOD COUNT 2.8 K/mm3 (4.0-10.0)
--- NOTE | 2018-07-01 13:45 | PN ---
Progress Note (short form) - Note Progress Note: clinically improved eating better received lasix yesterday reports less edema Vital Signs Period Temp Pulse Resp BP Sys/Wade Pulse Ox Last 24 Hr 98.5 F-98.8 F 96-107 -18 93-96/57-62 99 cor-rrr lungs decreased bs at bases abd soft,nt ext +pedal/ankle edema CBC, BMP 07/01/18 11:00 07/01/18 06:15 Microbiology 06/29/18 13:30 Urine - Urine Clean Catch Urine Culture - Final NO GROWTH OBTAINED 06/28/18 20:18 Urine - Urine Clean Catch Urine Culture - Final NO GROWTH OBTAINED 06/28/18 17:21 Blood - Luisa Cath Blood Culture - Preliminary NO GROWTH OBTAINED AFTER 48 HOURS, INCUBATION TO CONTINUE FOR 3 DAYS. 06/28/18 17:18 Blood - Luisa Cath Blood Culture - Preliminary NO GROWTH OBTAINED AFTER 48 HOURS, INCUBATION TO CONTINUE FOR 3 DAYS. 06/25/18 09:45 Blood - Peripheral Venous Blood Culture - Final NO GROWTH AFTER 5 DAYS INCUBATION 06/25/18 09:40 Blood - Peripheral Venous Blood Culture - Final NO GROWTH AFTER 5 DAYS INCUBATION 06/28/18 16:00 Stool Clostridium difficile Antigen (JENNIFER) - Final 06/28/18 16:00 Stool Clostridium difficile Toxin Assay - Final 06/21/18 11:55 Blood - Peripheral Venous Blood Culture - Final NO GROWTH AFTER 5 DAYS INCUBATION 06/21/18 12:00 Blood - Peripheral Venous Blood Culture - Final NO GROWTH AFTER 5 DAYS INCUBATION 06/25/18 13:05 Urine - Urine Clean Catch Urine Culture - Final NO GROWTH OBTAINED 06/23/18 14:30 Urine - Urine Clean Catch Urine Culture - Final NO GROWTH OBTAINED 06/19/18 18:45 Urine - Urine Reyes Urine Culture - Final Klebsiella Pneumoniae - Esbl 06/16/18 12:50 Stool Salmonella/Shigella Culture - Final NO GROWTH OF SALMONELLA OR SHIGELLA SPECIES OBTAINED 06/16/18 12:50 Stool Campylobacter Culture - Final NO GROWTH OF CAMPYLOBACTER SPECIES OBTAINED 06/16/18 12:50 Stool Yersinia Culture - Final NO GROWTH OF YERSINIA SPECIES OBTAINED 06/16/18 12:50 Stool Vibrio Culture - Final NO GROWTH OF VIBRIO SPECIES OBTAINED 06/16/18 12:50 Stool Escherichia coli 0157 Culture - Final NO GROWTH OF E COLI 0157 OBTAINED 06/16/18 12:50 Stool Clostridium difficile Antigen (JENNIFER) - Final 06/16/18 12:50 Stool Clostridium difficile Toxin Assay - Final a/p ecoli uti- off antibiotics anal cancer s/p chemo and RT volume overload- improved with lasix diuresis hiv- continue triumeq Problem List - Problems (1) Anal cancer Code(s): C21.0 - MALIGNANT NEOPLASM OF ANUS, UNSPECIFIED (2) HIV (human immunodeficiency virus infection) Code(s): Z21 - ASYMPTOMATIC HUMAN IMMUNODEFICIENCY VIRUS INFECTION STATUS
[2018-07-01 14:02] VITALS: BMI 24.7
[2018-07-01] MEDS: LOPERAMIDE HCL 2 MG CAPSULE PO PRN ×2 (14:13→22:42)
[2018-07-01] MEDS: fentaNYL 12mcg/hr PATCH.TD72 TD SCH (14:17)
[2018-07-01] MEDS: FENTANYL PATCH WASTE TD PRN (14:25)
[2018-07-01] MEDS ORDERED: SPIRONOLACTONE 25 MG TABLET (FP) PO ONE (16:26)
--- NOTE | 2018-07-01 16:26 | PN ---
Progress Note, Physician History of Present Illness: Pt seen and examined at bedside. She is down to 168 pounds. She denies shortness of breath. She feels that her edema is improving. - Current Medication List Current Medications: Active Medications Acetaminophen (Tylenol -) 325 mg PO Q8H PRN PRN Reason: PAIN LEVEL 6-10 Last Admin: 06/30/18 01:39 Dose: 325 mg Calcium Carbonate (Os-Madan 500mg -) 500 mg PO BID [facility] Last Admin: 06/30/18 21:05 Dose: 500 mg Clonazepam (Klonopin -) 0.25 mg PO BID PRN PRN Reason: ANXIETY Last Admin: 06/29/18 13:47 Dose: 0.25 mg Cyclobenzaprine HCl (Flexeril -) 5 mg PO Q8H PRN PRN Reason: MUSCLE SPASMS Last Admin: 06/30/18 13:29 Dose: 5 mg Docusate Sodium (Colace -) 100 mg PO Q8H PRN PRN Reason: CONSTIPATION Emollient Ointment (Aquaphor -) 1 applic TP BID [facility] Last Admin: 07/01/18 10:01 Dose: 1 applic Enoxaparin Sodium (Lovenox -) 80 mg SQ BID [facility] Last Admin: 06/30/18 21:05 Dose: 80 mg Fentanyl (Duragesic 12mcg Patch -) 1 patch TD Q72H [facility] Last Admin: 07/01/18 14:17 Dose: 1 patch IV Flush (Luisa-Cath Flush) 10 ml IVPUSH PRN PRN PRN Reason: FLUSH Last Admin: 06/29/18 15:30 Dose: 10 ml IV Flush (Luisa-Cath Flush) 10 ml IVPUSH PRN PRN PRN Reason: protocol, maintain patency IV Flush (Luisa-Cath Flush) 10 ml IVPUSH PRN PRN PRN Reason: FLUSH Lactobacillus Acidophilus (Bacid -) 1 tab PO DAILY [facility] Last Admin: 06/30/18 10:05 Dose: 1 tab Loperamide HCl (Imodium -) 2 mg PO Q8H PRN PRN Reason: DIARRHEA Last Admin: 06/30/18 20:32 Dose: 2 mg Magnesium Oxide (Mag-Ox -) 400 mg PO BID [facility] Last Admin: 06/30/18 21:05 Dose: 400 mg Miscellaneous (Duragesic Patch Waste) 1 each TD PRN PRN PRN Reason: WASTE Last Admin: 07/01/18 14:25 Dose: 1 each Multivitamins/Minerals/Vitamin C (Tab-A-Vit -) 1 tab PO DAILY [facility] Last Admin: 06/30/18 10:06 Dose: 1 tab Non-Formulary Medication (Abacavir/Dolutegravir/Lamivudi [Triumeq Tablet]) 1 each PO DAILY [facility] Last Admin: 07/01/18 10:00 Dose: 1 each Ondansetron HCl (Zofran Injection) 8 mg IVPB Q6H PRN PRN Reason: NAUSEA AND/OR VOMITING Last Admin: 06/18/18 11:29 Dose: 8 mg Oxycodone HCl (Roxicodone -) 10 mg PO Q8H PRN PRN Reason: PAIN LEVEL 6-10 Last Admin: 07/01/18 06:02 Dose: 10 mg Phenazopyridine HCl (Pyridium -) 100 mg PO [facility] Last Admin: 07/01/18 13:31 Dose: 100 mg Potassium Chloride (K-Dur -) 20 meq PO DAILY [facility] Last Admin: 06/30/18 10:06 Dose: 20 meq Simethicone (Mylicon -) 80 mg PO Q4H PRN PRN Reason: GAS Last Admin: 06/29/18 13:34 Dose: 80 mg Tiotropium [place] (Spiriva Respimat) 2 puff IH DAILY [facility] Last Admin: 06/30/18 10:31 Dose: 2 puff Valacyclovir HCl (Valtrex -) 500 mg PO DAILY [facility] Last Admin: 06/30/18 10:06 Dose: 500 mg - Objective Vital Signs: Vital Signs Temperature 97.5 F L 07/01/18 15:29 Pulse Rate 94 H 07/01/18 15:29 Respiratory Rate 20 07/01/18 15:29 Blood Pressure 83/51 L 07/01/18 15:29 O2 Sat by Pulse Oximetry (%) 98 07/01/18 09:00 Constitutional: Yes: Calm Eyes: Yes: Conjunctiva Clear Cardiovascular: Yes: S1, S2 Respiratory: Yes: CTA Bilaterally Gastrointestinal: Yes: Soft, Ascites Genitourinary: Yes: WNL Musculoskeletal: Yes: WNL Edema: Yes Edema: LLE: 1+, RLE: 1+ Neurological: Yes: Oriented Psychiatric: Yes: Oriented Labs: CBC, BMP 07/01/18 11:00 07/01/18 06:15 INR, PTT INR 1.22 (0.83-1.09) H 06/15/18 15:30 Problem List - Problems (1) Fluid overload Code(s): E87.70 - FLUID OVERLOAD, UNSPECIFIED Assessment/Plan Current Medications Generic Name Dose Route Start Last Admin Trade Name Freq PRN Reason Stop Dose Admin Acetaminophen 325 mg 06/13/18 17:05 06/30/18 01:39 Tylenol - PO 325 mg Q8H PRN Administration PAIN LEVEL 6-10 Calcium Carbonate 500 mg 06/22/18 10:00 06/30/18 21:05 Os-Madan 500mg - PO 500 mg BID TERRENCE Administration Clonazepam 0.25 mg 06/28/18 20:22 06/29/18 13:47 Klonopin - PO 0.25 mg BID PRN Administration ANXIETY Cyclobenzaprine HCl 5 mg 06/18/18 11:44 06/30/18 13:29 Flexeril - PO 5 mg Q8H PRN Administration MUSCLE SPASMS Docusate Sodium 100 mg 06/21/18 12:58 Colace - PO Q8H PRN CONSTIPATION Emollient Ointment 1 applic 06/15/18 22:00 07/01/18 10:01 Aquaphor - TP 1 applic BID TERRENCE Administration Enoxaparin Sodium 80 mg 06/22/18 22:30 06/30/18 21:05 Lovenox - SQ 80 mg BID TERRENCE Administration Fentanyl 1 patch 06/28/18 11:00 07/01/18 14:17 Duragesic 12mcg Patch - TD 1 patch Q72H TERRENCE Administration IV Flush 10 ml 06/15/18 11:04 06/29/18 15:30 Luisa-Cath Flush IVPUSH 10 ml PRN PRN Administration FLUSH IV Flush 10 ml 06/16/18 00:22 Luisa-Cath Flush IVPUSH PRN PRN protocol, maintain patency IV Flush 10 ml 06/19/18 10:56 Luisa-Cath Flush IVPUSH PRN PRN FLUSH Lactobacillus Acidophilus 1 tab 06/22/18 10:15 06/30/18 10:05 Bacid - PO 1 tab DAILY TERRENCE Administration Loperamide HCl 2 mg 06/29/18 15:03 06/30/18 20:32 Imodium - PO 2 mg Q8H PRN Administration DIARRHEA Magnesium Oxide 400 mg 06/22/18 22:00 06/30/18 21:05 Mag-Ox - PO 400 mg BID TERRENCE Administration Miscellaneous 1 each 06/28/18 11:00 07/01/18 14:25 Duragesic Patch Waste TD 1 each PRN PRN Administration WASTE Multivitamins/Minerals/Vitamin C 1 tab 06/14/18 10:00 06/30/18 10:06 Tab-A-Vit - PO 1 tab DAILY TERRENCE Administration Non-Formulary Medication 1 each 06/14/18 16:00 07/01/18 10:00 Abacavir/Dolutegravir/Lamivudi [Triumeq Tablet] PO 1 each DAILY TERRENCE Administration Ondansetron HCl 8 mg 06/13/18 14:52 06/18/18 11:29 Zofran Injection IVPB 8 mg Q6H PRN Administration NAUSEA AND/OR VOMITING Oxycodone HCl 10 mg 06/25/18 00:11 07/01/18 06:02 Roxicodone - PO 10 mg Q8H PRN Administration PAIN LEVEL 6-10 Phenazopyridine HCl 100 mg 06/22/18 18:30 07/01/18 13:31 Pyridium - PO 100 mg PC TERRENCE Administration Potassium Chloride 20 meq 06/20/18 10:45 06/30/18 10:06 K-Dur - PO 20 meq DAILY TERRENCE Administration Simethicone 80 mg 06/15/18 11:06 06/29/18 13:34 Mylicon - PO 80 mg Q4H PRN Administration GAS Tiotropium [place] 2 puff 06/16/18 10:15 06/30/18 10:31 Spiriva Respimat IH 2 puff DAILY TERRENCE Administration Valacyclovir HCl 500 mg 06/14/18 16:15 06/30/18 10:06 Valtrex - PO 500 mg DAILY TERRENCE Administration Impression 1. volume overload 2. HIV 3. Hep B 4. Hep C 5. HTN 6. COPD Plan - will give a dose of aldactone - weight is improved by 12 pounds - repeat lytes in am - edema is improving - encourage PO caloric intake - will follow PRN Dr Forde
[2018-07-01] MEDS ORDERED: PT OWN MED DRAWER 7, Y5N ONE (16:55)
[2018-07-01] MEDS: BANATROL PLUS POWDER PACKET PO SCH (22:42)
[2018-07-02] MEDS: ACETAMINOPHEN 325 MG TABLET (FP) PO PRN (05:52)
[2018-07-02] MEDS: oxyCODONE HCL 5 MG TABLET PO PRN ×3 (05:53→23:26)
[2018-07-02] MEDS: PORTA CATH FLUSH 10 ML IVPUSH PRN ×2 (06:45→18:47)
[2018-07-02 07:29] LABS: HEMATOCRIT 26.6 % (32.4-45.2); HEMOGLOBIN 8.6 GM/dL (10.7-15.3); MCH 33.7 pg (25.7-33.7); MCHC 32.1 g/dl (32.0-36.0); MEAN PLT VOLUME 9.5 fl (7.5-11.1); PLATELET COUNT 76 K/MM3 (134-434); RBC 2.53 M/mm3 (3.60-5.2); RDW 17.6 % (11.6-15.6); WHITE BLOOD COUNT 3.9 K/mm3 (4.0-10.0)
[2018-07-02] MEDS: BANATROL PLUS POWDER PACKET PO SCH ×3 (07:45→22:31)
[2018-07-02 08:31] LABS: ANION GAP 9 MMOL/L (8-16); BLOOD UREA NITROGEN 7 mg/dL (7-18); CALCIUM 7.1 mg/dL (8.5-10.1); CHLORIDE 107 mmol/L (98-107); CO2 25 mmol/L (21-32); CREATININE 0.8 mg/dL (0.55-1.3); GLUCOSE,RANDOM 92 mg/dL (74-106); MAGNESIUM 1.8 mg/dL (1.8-2.4); SODIUM 141 mmol/L (136-145)
[2018-07-02] MEDS: LACTOBACILLUS ACIDOPHILUS 1 TABLET PO SCH (09:23)
[2018-07-02] MEDS: PHENAZOPYRIDINE HCL 100 MG TABLET (FP) PO SCH ×3 (09:23→17:51)
[2018-07-02] MEDS: POTASSIUM CHLORIDE TABS 10 MEQ TABLET.ER (FP) PO SCH (09:23)
[2018-07-02] MEDS: CALCIUM (OYSTER SHELL) 500 MG TABLET (FP) PO SCH ×2 (09:24→22:32)
[2018-07-02] MEDS: valACYclovir HCL 500 MG TABLET (FP) PO SCH (09:24)
[2018-07-02] MEDS: CYCLOBENZAPRINE HCL 10 MG TABLET (FP) PO PRN ×2 (09:24→17:35)
[2018-07-02] MEDS: MULTIVITAMINS (DAILY MVI) TABLET (FP) PO SCH (09:25)
[2018-07-02] MEDS: ENOXAPARIN NA (PORCINE) 80 MG/0.8 ML DISP.SYRIN SQ SCH ×2 (09:25→22:31)
[2018-07-02] MEDS: LOPERAMIDE HCL 2 MG CAPSULE PO PRN (09:25)
[2018-07-02] MEDS: MAGNESIUM OXIDE 400 MG TABLET (FP) PO SCH ×2 (09:25→22:32)
[2018-07-02] MEDS: SIMETHICONE 80 MG TAB.CHEW (FP) PO SCH ×3 (09:32→22:32)
[2018-07-02] MEDS: MINERAL OIL/PET HY-PHL TOPICAL OINTMENT 454 GM JAR TP SCH ×2 (09:50→22:31)
[2018-07-02] MEDS: TIOTROPIUM BROMIDE 2.5 MCG (SPIRIVA) RESPIMAT INHALER IH SCH (11:26)
[2018-07-02] MEDS ORDERED: PT OWN MED DRAWER 7, Y5N ONE ×2 (13:24→21:15)
--- NOTE | 2018-07-02 15:21 | PN ---
Progress Note (short form) - Note Progress Note: Patient seen and examined Last Vital Signs Temp Pulse Resp BP Pulse Ox 97.9 F 71 18 93/59 L 92 L 07/02/18 15:07 07/02/18 15:07 07/02/18 15:07 07/02/18 15:07 07/02/18 08:58 Cor: RSR, No murmurs, No gallops Lungs: Clear to P&A Abd: abdominal binder present Ext:No significant edema Abnormal Lab Results 07/02/18 07/02/18 06:45 06:45 WBC 3.9 L RBC 2.53 L Hgb 8.6 L Hct 26.6 L MCV 105.0 H RDW 17.6 H Plt Count 76 L Calcium 7.1 L Home Medication List Medication Instructions Recorded Confirmed Type Abacavir/Dolutegravir/Lamivudi 1 each PO DAILY 04/15/18 06/13/18 History [Triumeq Tablet] Albuterol Sulfate Inhaler - 2 inh PO Q6H PRN 06/13/18 06/13/18 History [Ventolin HFA Inhaler -] Active Medications Generic Name Dose Route Start Last Admin Trade Name Freq PRN Reason Stop Dose Admin Acetaminophen 325 mg 06/13/18 17:05 07/02/18 05:52 Tylenol - PO 325 mg Q8H PRN Administration PAIN LEVEL 6-10 Calcium Carbonate 500 mg 06/22/18 10:00 07/02/18 09:24 Os-Madan 500mg - PO 500 mg BID TERRENCE Administration Cyclobenzaprine HCl 5 mg 06/18/18 11:44 07/02/18 09:24 Flexeril - PO 5 mg Q8H PRN Administration MUSCLE SPASMS Docusate Sodium 100 mg 06/21/18 12:58 Colace - PO Q8H PRN CONSTIPATION Emollient Ointment 1 applic 06/15/18 22:00 07/02/18 09:50 Aquaphor - TP 1 applic BID TERRENCE Administration Enoxaparin Sodium 80 mg 06/22/18 22:30 07/02/18 09:25 Lovenox - SQ 80 mg BID TERRENCE Administration Fentanyl 1 patch 06/28/18 11:00 07/01/18 14:17 Duragesic 12mcg Patch - TD 1 patch Q72H TERRENCE Administration IV Flush 10 ml 06/15/18 11:04 07/02/18 06:45 Luisa-Cath Flush IVPUSH 10 ml PRN PRN Administration FLUSH IV Flush 10 ml 06/16/18 00:22 Luisa-Cath Flush IVPUSH PRN PRN protocol, maintain patency IV Flush 10 ml 06/19/18 10:56 Luisa-Cath Flush IVPUSH PRN PRN FLUSH Lactobacillus Acidophilus 1 tab 06/22/18 10:15 07/02/18 09:23 Bacid - PO 1 tab DAILY TERRENCE Administration Loperamide HCl 2 mg 06/29/18 15:03 07/02/18 09:25 Imodium - PO 2 mg Q8H PRN Administration DIARRHEA Magnesium Oxide 400 mg 06/22/18 22:00 07/02/18 09:25 Mag-Ox - PO 400 mg BID TERRENCE Administration Miscellaneous 1 each 06/28/18 11:00 07/01/18 14:25 Duragesic Patch Waste TD 1 each PRN PRN Administration WASTE Multivitamins/Minerals/Vitamin C 1 tab 06/14/18 10:00 07/02/18 09:25 Tab-A-Vit - PO 1 tab DAILY TERRENCE Administration Non-Formulary Medication 1 each 06/14/18 16:00 07/02/18 09:45 Abacavir/Dolutegravir/Lamivudi [Triumeq Tablet] PO 1 each DAILY TERRENCE Administration Ondansetron HCl 8 mg 06/13/18 14:52 06/18/18 11:29 Zofran Injection IVPB 8 mg Q6H PRN Administration NAUSEA AND/OR VOMITING Oxycodone HCl 10 mg 07/02/18 15:19 Roxicodone - PO Q8H PRN PAIN LEVEL 6-10 Phenazopyridine HCl 100 mg 06/22/18 18:30 07/02/18 13:53 Pyridium - PO 100 mg PC TERRENCE Administration Potassium Chloride 20 meq 06/20/18 10:45 07/02/18 09:23 K-Dur - PO 20 meq DAILY TERRENCE Administration Simethicone 80 mg 07/02/18 09:30 07/02/18 13:36 Mylicon - PO 80 mg TID TERRENCE Administration Tiotropium [place] 2 puff 06/16/18 10:15 07/02/18 11:26 Spiriva Respimat IH 2 puff DAILY TERRENCE Administration Valacyclovir HCl 500 mg 06/14/18 16:15 07/02/18 09:24 Valtrex - PO 500 mg DAILY TERRENCE Administration A/P Anal Cancer HIV Hepatitis B Hepatitis C COPD Sarcoidosis of Lung HCC Liver Cirrhosis abdominal hernia --has a binder klebsiella UTI --on ertapenem diarrhea-- c.diff - imodium prn monitor platelets. on lovenox
--- NOTE | 2018-07-02 18:47 | PN ---
Physical Exam: SUBJECTIVE: Patient seen and examined. Patient reports pain is better today. Her appetite is slowly returning, but she is still not eating a lot. She had an episode of diarrhea this AM. OBJECTIVE: Vital Signs Period Temp Pulse Resp BP Sys/Wade Pulse Ox Last 24 Hr 97.9 F-100.2 F 71-115 17-20 87-140/46-69 92-97 GENERAL: The patient is awake, alert, and fully oriented, in no acute distress. HEAD: Normal with no signs of trauma. EYES: PERRL, extraocular movements intact, sclera anicteric, conjunctiva clear. No ptosis. ENT: Ears normal, nares patent, oropharynx clear without exudates, moist mucous membranes. NECK: Trachea midline, full range of motion, supple. LUNGS: Decreased breath sounds at bases, no crackles, no accessory muscle use. HEART: Regular rate and rhythm, S1, S2 without murmur, rub or gallop. ABDOMEN: +reducable round protrusion in RLQ, slightly TTP, +BS EXTREMITIES: +1 edema to b/l feet, 2+ pulses, warm, well-perfused, NEUROLOGICAL: No facial droop, normal speech, slow, steady gate PSYCH: Normal mood, normal affect. SKIN: Warm, dry, no rashes or lesions noted Laboratory Results - last 24 hr 07/02/18 07/02/18 06:45 06:45 WBC 3.9 L RBC 2.53 L Hgb 8.6 L Hct 26.6 L MCV 105.0 H MCH 33.7 MCHC 32.1 RDW 17.6 H Plt Count 76 L MPV 9.5 Sodium 141 Potassium 4.0 Chloride 107 Carbon Dioxide 25 Anion Gap 9 BUN 7 Creatinine 0.8 Creat Clearance w eGFR > 60 Random Glucose 92 Calcium 7.1 L Magnesium 1.8 Active Medications Generic Name Dose Route Start Last Admin Trade Name Freq PRN Reason Stop Dose Admin Acetaminophen 325 mg 06/13/18 17:05 07/02/18 05:52 Tylenol - PO 325 mg Q8H PRN Administration PAIN LEVEL 6-10 Calcium Carbonate 500 mg 06/22/18 10:00 07/02/18 09:24 Os-Madan 500mg - PO 500 mg BID TERRENCE Administration Cyclobenzaprine HCl 5 mg 06/18/18 11:44 07/02/18 17:35 Flexeril - PO 5 mg Q8H PRN Administration MUSCLE SPASMS Docusate Sodium 100 mg 06/21/18 12:58 Colace - PO Q8H PRN CONSTIPATION Emollient Ointment 1 applic 06/15/18 22:00 07/02/18 09:50 Aquaphor - TP 1 applic BID TERRENCE Administration Enoxaparin Sodium 80 mg 06/22/18 22:30 07/02/18 09:25 Lovenox - SQ 80 mg BID TERRENCE Administration Fentanyl 1 patch 06/28/18 11:00 07/01/18 14:17 Duragesic 12mcg Patch - TD 1 patch Q72H TERRENCE Administration IV Flush 10 ml 06/15/18 11:04 07/02/18 06:45 Luisa-Cath Flush IVPUSH 10 ml PRN PRN Administration FLUSH IV Flush 10 ml 06/16/18 00:22 Luisa-Cath Flush IVPUSH PRN PRN protocol, maintain patency IV Flush 10 ml 06/19/18 10:56 07/02/18 17:36 Luisa-Cath Flush IVPUSH 10 ml PRN PRN Administration FLUSH Lactobacillus Acidophilus 1 tab 06/22/18 10:15 07/02/18 09:23 Bacid - PO 1 tab DAILY TERRENCE Administration Loperamide HCl 2 mg 06/29/18 15:03 07/02/18 09:25 Imodium - PO 2 mg Q8H PRN Administration DIARRHEA Magnesium Oxide 400 mg 06/22/18 22:00 07/02/18 09:25 Mag-Ox - PO 400 mg BID TERRENCE Administration Miscellaneous 1 each 06/28/18 11:00 07/01/18 14:25 Duragesic Patch Waste TD 1 each PRN PRN Administration WASTE Multivitamins/Minerals/Vitamin C 1 tab 06/14/18 10:00 07/02/18 09:25 Tab-A-Vit - PO 1 tab DAILY TERRENCE Administration Non-Formulary Medication 1 each 06/14/18 16:00 07/02/18 09:45 Abacavir/Dolutegravir/Lamivudi [Triumeq Tablet] PO 1 each DAILY TERRENCE Administration Ondansetron HCl 8 mg 06/13/18 14:52 06/18/18 11:29 Zofran Injection IVPB 8 mg Q6H PRN Administration NAUSEA AND/OR VOMITING Oxycodone HCl 10 mg 07/02/18 15:19 Roxicodone - PO Q8H PRN PAIN LEVEL 6-10 Phenazopyridine HCl 100 mg 06/22/18 18:30 07/02/18 17:51 Pyridium - PO 100 mg PC TERRENCE Administration Potassium Chloride 20 meq 06/20/18 10:45 07/02/18 09:23 K-Dur - PO 20 meq DAILY TERRENCE Administration Simethicone 80 mg 07/02/18 09:30 07/02/18 13:36 Mylicon - PO 80 mg TID TERRENCE Administration Tiotropium [place] 2 puff 06/16/18 10:15 07/02/18 11:26 Spiriva Respimat IH 2 puff DAILY TERRENCE Administration Valacyclovir HCl 500 mg 06/14/18 16:15 07/02/18 09:24 Valtrex - PO 500 mg DAILY TERRENCE Administration ASSESSMENT/PLAN: 63 year old female with a PMH significant for Vivas's Palsy, HIV+ (follows at the [facility]), COPD, sarcoidosis and squamous cell anal cancer. She is s/p chemotherapy and 28 cycles of RT. Patient admitted under the medicine service for chemotherapy as she has too many comorbidities to manage as an outpatient. Squamous cell anal cancer - s/p 5-FU via right subclavian mediport - On Granix 480mcg daily, wbc 2.7 Volume overload - Likely caused by 3rd spacing secondary to low Albumin - Given dose of lasix 40 mg and KCl PO yesterday per renal - Patient more compliant about feet elevation - CMP pending - Followed by renal Hypotension - Improving, lost 12 lbs - nl EF on echo - Trial of Midodrine ineffective - PO hydration, salt intake - Followed by cardiology Supraumbilical hernia - Reduced by surgeon, Dr. Shepherd, can be considered for minimal invasive operative repair (3-4 weeks) - Patient non-compliant with abdominal binder COPD - Stable - Duonebs prn HIV - On Haart therapy - Followed by Dr. Herndon ESBL UTI - Completed 10 day course of Ertapenem yesterday - Urine culture pending - Contact precautions - Followed by ID Urinary retention - Possible SE from Midodrine - Reyes removed - No issues urinating reported. Diarrhea - Stool culture negative - Immodium PRN Anxiety - Klonopin bid prn FEN - PO intake - Check electrolytes daily - Low fiber, lactose free Ensure, followed by dietary. Prophylaxis - Lovenox - Physical therapy FULL CODE Visit type - Emergency Visit Emergency Visit: No - New Patient This patient is new to me today: No - Critical Care Critical Care patient: No
--- NOTE | 2018-07-03 00:06 | PN ---
Progress Note (short form) - Note Progress Note: Patient seen and examined clinically improving Last Vital Signs Temp Pulse Resp BP Pulse Ox 97.9 F 71 18 93/59 L 92 L 07/02/18 15:07 07/02/18 15:07 07/02/18 15:07 07/02/18 15:07 07/02/18 08:58 Cor: RSR, No murmurs, No gallops Lungs: Clear to P&A Abd: abdominal binder present Ext:decreased edema Abnormal Lab Results 07/02/18 07/02/18 06:45 06:45 WBC 3.9 L RBC 2.53 L Hgb 8.6 L Hct 26.6 L MCV 105.0 H RDW 17.6 H Plt Count 76 L Calcium 7.1 L Home Medication List Medication Instructions Recorded Confirmed Type Abacavir/Dolutegravir/Lamivudi 1 each PO DAILY 04/15/18 06/13/18 History [Triumeq Tablet] Albuterol Sulfate Inhaler - 2 inh PO Q6H PRN 06/13/18 06/13/18 History [Ventolin HFA Inhaler -] Active Medications Generic Name Dose Route Start Last Admin Trade Name Freq PRN Reason Stop Dose Admin Acetaminophen 325 mg 06/13/18 17:05 07/02/18 05:52 Tylenol - PO 325 mg Q8H PRN Administration PAIN LEVEL 6-10 Calcium Carbonate 500 mg 06/22/18 10:00 07/02/18 09:24 Os-Madan 500mg - PO 500 mg BID TERRENCE Administration Cyclobenzaprine HCl 5 mg 06/18/18 11:44 07/02/18 09:24 Flexeril - PO 5 mg Q8H PRN Administration MUSCLE SPASMS Docusate Sodium 100 mg 06/21/18 12:58 Colace - PO Q8H PRN CONSTIPATION Emollient Ointment 1 applic 06/15/18 22:00 07/02/18 09:50 Aquaphor - TP 1 applic BID TERRENCE Administration Enoxaparin Sodium 80 mg 06/22/18 22:30 07/02/18 09:25 Lovenox - SQ 80 mg BID TERRENCE Administration Fentanyl 1 patch 06/28/18 11:00 07/01/18 14:17 Duragesic 12mcg Patch - TD 1 patch Q72H TERRENCE Administration IV Flush 10 ml 06/15/18 11:04 11/24/18 06:45 Luisa-Cath Flush IVPUSH 10 ml PRN PRN Administration FLUSH IV Flush 10 ml 06/16/18 00:22 Luisa-Cath Flush IVPUSH PRN PRN protocol, maintain patency IV Flush 10 ml 06/19/18 10:56 Luisa-Cath Flush IVPUSH PRN PRN FLUSH Lactobacillus Acidophilus 1 tab 06/22/18 10:15 07/02/18 09:23 Bacid - PO 1 tab DAILY TERRENCE Administration Loperamide HCl 2 mg 06/29/18 15:03 07/02/18 09:25 Imodium - PO 2 mg Q8H PRN Administration DIARRHEA Magnesium Oxide 400 mg 06/22/18 22:00 07/02/18 09:25 Mag-Ox - PO 400 mg BID TERRENCE Administration Miscellaneous 1 each 06/28/18 11:00 07/01/18 14:25 Duragesic Patch Waste TD 1 each PRN PRN Administration WASTE Multivitamins/Minerals/Vitamin C 1 tab 06/14/18 10:00 07/02/18 09:25 Tab-A-Vit - PO 1 tab DAILY TERRENCE Administration Non-Formulary Medication 1 each 06/14/18 16:00 07/02/18 09:45 Abacavir/Dolutegravir/Lamivudi [Triumeq Tablet] PO 1 each DAILY TERRENCE Administration Ondansetron HCl 8 mg 06/13/18 14:52 06/18/18 11:29 Zofran Injection IVPB 8 mg Q6H PRN Administration NAUSEA AND/OR VOMITING Oxycodone HCl 10 mg 07/02/18 15:19 Roxicodone - PO Q8H PRN PAIN LEVEL 6-10 Phenazopyridine HCl 100 mg 06/22/18 18:30 07/02/18 13:53 Pyridium - PO 100 mg PC TERRENCE Administration Potassium Chloride 20 meq 06/20/18 10:45 07/02/18 09:23 K-Dur - PO 20 meq DAILY TERRENCE Administration Simethicone 80 mg 07/02/18 09:30 07/02/18 13:36 Mylicon - PO 80 mg TID TERRENCE Administration Tiotropium [place] 2 puff 06/16/18 10:15 07/02/18 11:26 Spiriva Respimat IH 2 puff DAILY TERRENCE Administration Valacyclovir HCl 500 mg 06/14/18 16:15 07/02/18 09:24 Valtrex - PO 500 mg DAILY TERRENCE Administration A/P Anal Cancer HIV Hepatitis B Hepatitis C COPD Sarcoidosis of Lung HCC Liver Cirrhosis abdominal hernia --has a binder klebsiella UTI --on ertapenem diarrhea-- c.diff - imodium prn d/c planning
[2018-07-03] MEDS: CYCLOBENZAPRINE HCL 10 MG TABLET (FP) PO PRN (06:31)
[2018-07-03] MEDS: SIMETHICONE 80 MG TAB.CHEW (FP) PO SCH ×3 (06:32→22:26)
[2018-07-03] MEDS: BANATROL PLUS POWDER PACKET PO SCH ×3 (06:32→22:34)
[2018-07-03] MEDS: PORTA CATH FLUSH 10 ML IVPUSH PRN ×2 (06:37→18:20)
[2018-07-03 07:52] LABS: HEMATOCRIT 24.1 % (32.4-45.2); HEMOGLOBIN 8.3 GM/dL (10.7-15.3); MCH 36.1 pg (25.7-33.7); MCHC 34.7 g/dl (32.0-36.0); MEAN PLT VOLUME 9.4 fl (7.5-11.1); PLATELET COUNT 80 K/MM3 (134-434); RBC 2.31 M/mm3 (3.60-5.2); RDW 17.7 % (11.6-15.6); WHITE BLOOD COUNT 3.2 K/mm3 (4.0-10.0)
[2018-07-03 08:18] LABS: ALK PHOS 94 U/L (45-117); ANION GAP 4 MMOL/L (8-16); BILIRUBIN,TOTAL 0.7 mg/dL (0.2-1); BLOOD UREA NITROGEN 7 mg/dL (7-18); CALCIUM 7.3 mg/dL (8.5-10.1); CHLORIDE 108 mmol/L (98-107); CO2 28 mmol/L (21-32); CREATININE 0.8 mg/dL (0.55-1.3); GLUCOSE,RANDOM 91 mg/dL (74-106); POTASSIUM 3.9 mmol/L (3.5-5.1); SGOT/AST 25 U/L (15-37); SGPT/ALT 15 U/L (13-61); SODIUM 140 mmol/L (136-145); TOT PROT 5.7 g/dl (6.4-8.2)
[2018-07-03] MEDS: POTASSIUM CHLORIDE TABS 10 MEQ TABLET.ER (FP) PO SCH (10:18)
[2018-07-03] MEDS: valACYclovir HCL 500 MG TABLET (FP) PO SCH (10:18)
[2018-07-03] MEDS: PHENAZOPYRIDINE HCL 100 MG TABLET (FP) PO SCH ×3 (10:18→17:30)
[2018-07-03] MEDS: CALCIUM (OYSTER SHELL) 500 MG TABLET (FP) PO SCH ×2 (10:18→22:26)
[2018-07-03] MEDS: MAGNESIUM OXIDE 400 MG TABLET (FP) PO SCH ×2 (10:19→22:26)
[2018-07-03] MEDS: TIOTROPIUM BROMIDE 2.5 MCG (SPIRIVA) RESPIMAT INHALER IH SCH (10:19)
[2018-07-03] MEDS: MULTIVITAMINS (DAILY MVI) TABLET (FP) PO SCH (10:19)
[2018-07-03] MEDS: MINERAL OIL/PET HY-PHL TOPICAL OINTMENT 454 GM JAR TP SCH ×2 (10:19→22:34)
[2018-07-03] MEDS: LACTOBACILLUS ACIDOPHILUS 1 TABLET PO SCH (10:19)
[2018-07-03] MEDS: ENOXAPARIN NA (PORCINE) 80 MG/0.8 ML DISP.SYRIN SQ SCH ×2 (10:21→22:25)
--- NOTE | 2018-07-03 10:39 | PN ---
Physical Exam: SUBJECTIVE: Patient seen and examined. Still with some lower leg edema and minor abdominal pain. Plan is to d/c tomorrow. OBJECTIVE: Vital Signs Period Temp Pulse Resp BP Sys/Wade Pulse Ox Last 24 Hr 97.9 F-99 F 71-123 18-22 85-143/45-59 92 GENERAL: The patient is awake, alert, and fully oriented, in no acute distress. HEAD: Normal with no signs of trauma. EYES: PERRL, extraocular movements intact, sclera anicteric, conjunctiva clear. No ptosis. ENT: Ears normal, nares patent, oropharynx clear without exudates, moist mucous membranes. NECK: Trachea midline, full range of motion, supple. LUNGS: Decreased breath sounds at bases, no crackles, no accessory muscle use. HEART: Regular rate and rhythm, S1, S2 without murmur, rub or gallop. ABDOMEN: +reducable round protrusion in RLQ, slightly TTP, +BS EXTREMITIES: +1 edema to b/l feet, 2+ pulses, warm, well-perfused, NEUROLOGICAL: No facial droop, normal speech, slow, steady gate PSYCH: Normal mood, normal affect. SKIN: Warm, dry, no rashes or lesions noted Laboratory Results - last 24 hr 07/03/18 07/03/18 06:40 06:40 WBC 3.2 L RBC 2.31 L Hgb 8.3 L Hct 24.1 L MCV 104.0 H MCH 36.1 H MCHC 34.7 RDW 17.7 H Plt Count 80 L MPV 9.4 Sodium 140 Potassium 3.9 Chloride 108 H Carbon Dioxide 28 Anion Gap 4 L BUN 7 Creatinine 0.8 Creat Clearance w eGFR > 60 Random Glucose 91 Calcium 7.3 L Total Bilirubin 0.7 AST 25 ALT 15 Alkaline Phosphatase 94 Total Protein 5.7 L Albumin 2.0 L Active Medications Generic Name Dose Route Start Last Admin Trade Name Freq PRN Reason Stop Dose Admin Acetaminophen 325 mg 06/13/18 17:05 07/02/18 05:52 Tylenol - PO 325 mg Q8H PRN Administration PAIN LEVEL 6-10 Calcium Carbonate 500 mg 06/22/18 10:00 07/03/18 10:18 Os-Madan 500mg - PO 500 mg BID TERRENCE Administration Cyclobenzaprine HCl 5 mg 06/18/18 11:44 07/03/18 06:31 Flexeril - PO 5 mg Q8H PRN Administration MUSCLE SPASMS Docusate Sodium 100 mg 06/21/18 12:58 Colace - PO Q8H PRN CONSTIPATION Emollient Ointment 1 applic 06/15/18 22:00 07/03/18 10:19 Aquaphor - TP 1 applic BID TERRENCE Administration Enoxaparin Sodium 80 mg 06/22/18 22:30 07/03/18 10:21 Lovenox - SQ 80 mg BID TERRENCE Administration Fentanyl 1 patch 06/28/18 11:00 07/01/18 14:17 Duragesic 12mcg Patch - TD 1 patch Q72H TERRENCE Administration IV Flush 10 ml 06/15/18 11:04 07/03/18 06:37 Luisa-Cath Flush IVPUSH 10 ml PRN PRN Administration FLUSH IV Flush 10 ml 06/16/18 00:22 07/02/18 18:47 Luisa-Cath Flush IVPUSH 10 ml PRN PRN Administration protocol, maintain patency IV Flush 10 ml 06/19/18 10:56 07/02/18 17:36 Luisa-Cath Flush IVPUSH 10 ml PRN PRN Administration FLUSH Lactobacillus Acidophilus 1 tab 06/22/18 10:15 07/03/18 10:19 Bacid - PO 1 tab DAILY TERRENCE Administration Loperamide HCl 2 mg 06/29/18 15:03 07/02/18 09:25 Imodium - PO 2 mg Q8H PRN Administration DIARRHEA Magnesium Oxide 400 mg 06/22/18 22:00 07/03/18 10:19 Mag-Ox - PO 400 mg BID TERRENCE Administration Miscellaneous 1 each 06/28/18 11:00 07/01/18 14:25 Duragesic Patch Waste TD 1 each PRN PRN Administration WASTE Multivitamins/Minerals/Vitamin C 1 tab 06/14/18 10:00 07/03/18 10:19 Tab-A-Vit - PO 1 tab DAILY TERRENCE Administration Non-Formulary Medication 1 each 06/14/18 16:00 07/03/18 10:20 Abacavir/Dolutegravir/Lamivudi [Triumeq Tablet] PO 1 each DAILY TERRENCE Administration Ondansetron HCl 8 mg 06/13/18 14:52 06/18/18 11:29 Zofran Injection IVPB 8 mg Q6H PRN Administration NAUSEA AND/OR VOMITING Oxycodone HCl 10 mg 07/02/18 15:19 07/02/18 23:26 Roxicodone - PO 10 mg Q8H PRN Administration PAIN LEVEL 6-10 Phenazopyridine HCl 100 mg 06/22/18 18:30 07/03/18 10:18 Pyridium - PO 100 mg PC TERRENCE Administration Potassium Chloride 20 meq 06/20/18 10:45 07/03/18 10:18 K-Dur - PO 20 meq DAILY TERRENCE Administration Simethicone 80 mg 07/02/18 09:30 07/03/18 06:32 Mylicon - PO Not Given TID TERRECNE Tiotropium [place] 2 puff 06/16/18 10:15 07/03/18 10:19 Spiriva Respimat IH 2 puff DAILY TERRENCE Administration Valacyclovir HCl 500 mg 06/14/18 16:15 07/03/18 10:18 Valtrex - PO 500 mg DAILY TERRENCE Administration ASSESSMENT/PLAN: 63 year old female with a PMH significant for Vivas's Palsy, HIV+ (follows at the [facility]), COPD, sarcoidosis and squamous cell anal cancer. She is s/p chemotherapy and 28 cycles of RT. Patient admitted under the medicine service for chemotherapy as she has too many comorbidities to manage as an outpatient. Squamous cell anal cancer - s/p 5-FU via right subclavian mediport - On Granix 480mcg daily, wbc 2.7 Volume overload - Likely caused by 3rd spacing secondary to low Albumin - Given dose of lasix 40 mg and KCl PO yesterday per renal - Patient more compliant about feet elevation - CMP pending - Followed by renal Hypotension - Improving, lost 12 lbs - nl EF on echo - Trial of Midodrine ineffective - PO hydration, salt intake - Followed by cardiology Supraumbilical hernia - Reduced by surgeon, Dr. Shepherd, can be considered for minimal invasive operative repair (3-4 weeks) - Patient non-compliant with abdominal binder COPD - Stable - Duonebs prn HIV - On Haart therapy - Followed by Dr. Herndon ESBL UTI - Completed 10 day course of Ertapenem yesterday - Urine culture pending - Contact precautions - Followed by ID Urinary retention - Possible SE from Midodrine - Reyes removed - No issues urinating reported. Diarrhea - Stool culture negative - Immodium PRN Anxiety - Klonopin bid prn FEN - PO intake - Check electrolytes daily - Low fiber, lactose free Ensure, followed by dietary. Prophylaxis - Lovenox - Physical therapy FULL CODE Visit type - Emergency Visit Emergency Visit: No - New Patient This patient is new to me today: No - Critical Care Critical Care patient: No
--- NOTE | 2018-07-03 10:43 | PN ---
Progress Note (short form) - Note Progress Note: RENAL pt is awake and alert says she is much less swollen Last Vital Signs Temp Pulse Resp BP Pulse Ox 98.3 F 95 H 18 85/45 L 92 L 07/03/18 10:00 07/03/18 10:00 07/03/18 10:00 07/03/18 10:00 07/02/18 21:00 lungs clear cvs s1s2 rr abd soft, globose ext +edema neuro a+ox3 CBC, BMP 07/03/18 06:40 07/03/18 06:40 Current Medications Generic Name Dose Route Start Last Admin Trade Name Freq PRN Reason Stop Dose Admin Acetaminophen 325 mg 06/13/18 17:05 07/02/18 05:52 Tylenol - PO 325 mg Q8H PRN Administration PAIN LEVEL 6-10 Calcium Carbonate 500 mg 06/22/18 10:00 07/03/18 10:18 Os-Madan 500mg - PO 500 mg BID TERRENCE Administration Cyclobenzaprine HCl 5 mg 06/18/18 11:44 07/03/18 06:31 Flexeril - PO 5 mg Q8H PRN Administration MUSCLE SPASMS Docusate Sodium 100 mg 06/21/18 12:58 Colace - PO Q8H PRN CONSTIPATION Emollient Ointment 1 applic 06/15/18 22:00 07/03/18 10:19 Aquaphor - TP 1 applic BID TERRENCE Administration Enoxaparin Sodium 80 mg 06/22/18 22:30 07/03/18 10:21 Lovenox - SQ 80 mg BID TERRENCE Administration Fentanyl 1 patch 06/28/18 11:00 07/01/18 14:17 Duragesic 12mcg Patch - TD 1 patch Q72H TERRENCE Administration IV Flush 10 ml 06/15/18 11:04 07/03/18 06:37 Luisa-Cath Flush IVPUSH 10 ml PRN PRN Administration FLUSH IV Flush 10 ml 06/16/18 00:22 07/02/18 18:47 Luisa-Cath Flush IVPUSH 10 ml PRN PRN Administration protocol, maintain patency IV Flush 10 ml 06/19/18 10:56 07/02/18 17:36 Luisa-Cath Flush IVPUSH 10 ml PRN PRN Administration FLUSH Lactobacillus Acidophilus 1 tab 06/22/18 10:15 11/25/18 10:19 Bacid - PO 1 tab DAILY TERRENCE Administration Loperamide HCl 2 mg 06/29/18 15:03 07/02/18 09:25 Imodium - PO 2 mg Q8H PRN Administration DIARRHEA Magnesium Oxide 400 mg 06/22/18 22:00 07/03/18 10:19 Mag-Ox - PO 400 mg BID TERRENCE Administration Miscellaneous 1 each 06/28/18 11:00 07/01/18 14:25 Duragesic Patch Waste TD 1 each PRN PRN Administration WASTE Multivitamins/Minerals/Vitamin C 1 tab 06/14/18 10:00 07/03/18 10:19 Tab-A-Vit - PO 1 tab DAILY TERRENCE Administration Non-Formulary Medication 1 each 06/14/18 16:00 07/03/18 10:20 Abacavir/Dolutegravir/Lamivudi [Triumeq Tablet] PO 1 each DAILY TERRENCE Administration Ondansetron HCl 8 mg 06/13/18 14:52 06/18/18 11:29 Zofran Injection IVPB 8 mg Q6H PRN Administration NAUSEA AND/OR VOMITING Oxycodone HCl 10 mg 07/02/18 15:19 07/02/18 23:26 Roxicodone - PO 10 mg Q8H PRN Administration PAIN LEVEL 6-10 Phenazopyridine HCl 100 mg 06/22/18 18:30 07/03/18 10:18 Pyridium - PO 100 mg PC TERRENCE Administration Potassium Chloride 20 meq 06/20/18 10:45 07/03/18 10:18 K-Dur - PO 20 meq DAILY TERRENCE Administration Simethicone 80 mg 07/02/18 09:30 07/03/18 06:32 Mylicon - PO Not Given TID TERRENCE Tiotropium [place] 2 puff 06/16/18 10:15 07/03/18 10:19 Spiriva Respimat IH 2 puff DAILY TERRENCE Administration Valacyclovir HCl 500 mg 06/14/18 16:15 07/03/18 10:18 Valtrex - PO 500 mg DAILY TERRENCE Administration Impression 1. volume overload 2. HIV 3. Hep B 4. Hep C 5. HTN 6. COPD Plan normal kidney function with proteinuria that has improved (transient?)- would monitor. prn diuretics MV
[2018-07-03] MEDS: oxyCODONE HCL 5 MG TABLET PO PRN ×2 (11:41→22:26)
--- NOTE | 2018-07-03 16:47 | PN ---
Progress Note (short form) - Note Progress Note: Patient seen and examined feels better Last Vital Signs Temp Pulse Resp BP Pulse Ox 98.2 F 96 H 18 86/54 L 94 L 07/03/18 15:21 07/03/18 15:21 07/03/18 15:21 07/03/18 15:21 07/03/18 09:00 Cor: RSR, No murmurs, No gallops Lungs: Clear to P&A Abd: abdominal binder present Ext:No significant edema Abnormal Lab Results 07/03/18 07/03/18 06:40 06:40 WBC 3.2 L RBC 2.31 L Hgb 8.3 L Hct 24.1 L MCV 104.0 H MCH 36.1 H RDW 17.7 H Plt Count 80 L Chloride 108 H Anion Gap 4 L Calcium 7.3 L Total Protein 5.7 L Albumin 2.0 L Active Medications Generic Name Dose Route Start Last Admin Trade Name Freq PRN Reason Stop Dose Admin Acetaminophen 325 mg 06/13/18 17:05 07/02/18 05:52 Tylenol - PO 325 mg Q8H PRN Administration PAIN LEVEL 6-10 Calcium Carbonate 500 mg 06/22/18 10:00 07/03/18 10:18 Os-Madan 500mg - PO 500 mg BID TERRENCE Administration Cyclobenzaprine HCl 5 mg 06/18/18 11:44 07/03/18 06:31 Flexeril - PO 5 mg Q8H PRN Administration MUSCLE SPASMS Docusate Sodium 100 mg 06/21/18 12:58 Colace - PO Q8H PRN CONSTIPATION Emollient Ointment 1 applic 06/15/18 22:00 07/03/18 10:19 Aquaphor - TP 1 applic BID TERRENCE Administration Enoxaparin Sodium 80 mg 06/22/18 22:30 07/03/18 10:21 Lovenox - SQ 80 mg BID TERRENCE Administration Fentanyl 1 patch 06/28/18 11:00 07/01/18 14:17 Duragesic 12mcg Patch - TD 1 patch Q72H TERRENCE Administration IV Flush 10 ml 06/15/18 11:04 07/03/18 06:37 Luisa-Cath Flush IVPUSH 10 ml PRN PRN Administration FLUSH IV Flush 10 ml 06/16/18 00:22 07/02/18 18:47 Luisa-Cath Flush IVPUSH 10 ml PRN PRN Administration protocol, maintain patency IV Flush 10 ml 06/19/18 10:56 07/02/18 17:36 Luisa-Cath Flush IVPUSH 10 ml PRN PRN Administration FLUSH Lactobacillus Acidophilus 1 tab 06/22/18 10:15 07/03/18 10:19 Bacid - PO 1 tab DAILY TERRENCE Administration Loperamide HCl 2 mg 06/29/18 15:03 07/02/18 09:25 Imodium - PO 2 mg Q8H PRN Administration DIARRHEA Magnesium Oxide 400 mg 06/22/18 22:00 07/03/18 10:19 Mag-Ox - PO 400 mg BID TERRENCE Administration Miscellaneous 1 each 06/28/18 11:00 07/01/18 14:25 Duragesic Patch Waste TD 1 each PRN PRN Administration WASTE Multivitamins/Minerals/Vitamin C 1 tab 06/14/18 10:00 07/03/18 10:19 Tab-A-Vit - PO 1 tab DAILY TERRENCE Administration Non-Formulary Medication 1 each 06/14/18 16:00 07/03/18 10:20 Abacavir/Dolutegravir/Lamivudi [Triumeq Tablet] PO 1 each DAILY TERRENCE Administration Ondansetron HCl 8 mg 06/13/18 14:52 06/18/18 11:29 Zofran Injection IVPB 8 mg Q6H PRN Administration NAUSEA AND/OR VOMITING Oxycodone HCl 10 mg 07/02/18 15:19 07/03/18 11:41 Roxicodone - PO 10 mg Q8H PRN Administration PAIN LEVEL 6-10 Phenazopyridine HCl 100 mg 06/22/18 18:30 07/03/18 13:34 Pyridium - PO 100 mg PC TERRENCE Administration Potassium Chloride 20 meq 06/20/18 10:45 07/03/18 10:18 K-Dur - PO 20 meq DAILY TERRENCE Administration Simethicone 80 mg 07/02/18 09:30 07/03/18 13:35 Mylicon - PO 80 mg TID TERRENCE Administration Tiotropium [place] 2 puff 06/16/18 10:15 07/03/18 10:19 Spiriva Respimat IH 2 puff DAILY TERRENCE Administration Valacyclovir HCl 500 mg 06/14/18 16:15 07/03/18 10:18 Valtrex - PO 500 mg DAILY TERRENCE Administration A/P Anal Cancer HIV Hepatitis B Hepatitis C COPD Sarcoidosis of Lung HCC Liver Cirrhosis abdominal hernia needs outpatient f/u
[2018-07-04] MEDS: SIMETHICONE 80 MG TAB.CHEW (FP) PO SCH ×2 (06:09→14:27)
[2018-07-04] MEDS: oxyCODONE HCL 5 MG TABLET PO PRN ×2 (06:09→14:30)
[2018-07-04] MEDS: PORTA CATH FLUSH 10 ML IVPUSH PRN (06:10)
[2018-07-04] MEDS: BANATROL PLUS POWDER PACKET PO SCH ×2 (06:51→14:28)
[2018-07-04 07:20] LABS: BASO % 0.5 % (0-2.0); EOS % 7.1 % (0-4.5); HEMATOCRIT 26.1 % (32.4-45.2); HEMOGLOBIN 8.5 GM/dL (10.7-15.3); LYMPH % 19.9 % (8-40); MCH 34.1 pg (25.7-33.7); MCHC 32.4 g/dl (32.0-36.0); MEAN CELL VOLUME 105.1 fl (80-96); MEAN PLT VOLUME 9.4 fl (7.5-11.1); MONO % 10.5 % (3.8-10.2); PLATELET COUNT 74 K/MM3 (134-434); RBC 2.49 M/mm3 (3.60-5.2); RDW 17.6 % (11.6-15.6)
[2018-07-04 07:35] LABS: ALK PHOS 93 U/L (45-117); ANION GAP 4 MMOL/L (8-16); BLOOD UREA NITROGEN 6 mg/dL (7-18); CALCIUM 7.3 mg/dL (8.5-10.1); CHLORIDE 108 mmol/L (98-107); CO2 27 mmol/L (21-32); CREATININE 0.6 mg/dL (0.55-1.3); GLUCOSE,RANDOM 84 mg/dL (74-106); POTASSIUM 3.9 mmol/L (3.5-5.1); SGOT/AST 26 U/L (15-37); SGPT/ALT 16 U/L (13-61); SODIUM 139 mmol/L (136-145)
[2018-07-04] MEDS ORDERED: PT OWN MED DRAWER 7, Y5N ONE (08:51)
[2018-07-04] MEDS: POTASSIUM CHLORIDE TABS 10 MEQ TABLET.ER (FP) PO SCH (09:02)
[2018-07-04] MEDS: LACTOBACILLUS ACIDOPHILUS 1 TABLET PO SCH (09:02)
[2018-07-04] MEDS: MULTIVITAMINS (DAILY MVI) TABLET (FP) PO SCH (09:02)
[2018-07-04] MEDS: CALCIUM (OYSTER SHELL) 500 MG TABLET (FP) PO SCH (09:02)
[2018-07-04] MEDS: MAGNESIUM OXIDE 400 MG TABLET (FP) PO SCH (09:02)
[2018-07-04] MEDS: valACYclovir HCL 500 MG TABLET (FP) PO SCH (09:02)
[2018-07-04] MEDS: PHENAZOPYRIDINE HCL 100 MG TABLET (FP) PO SCH ×3 (09:02→18:05)
[2018-07-04] MEDS: ENOXAPARIN NA (PORCINE) 80 MG/0.8 ML DISP.SYRIN SQ SCH (09:03)
[2018-07-04] MEDS: fentaNYL 12mcg/hr PATCH.TD72 TD SCH (10:45)
[2018-07-04] MEDS: TIOTROPIUM BROMIDE 2.5 MCG (SPIRIVA) RESPIMAT INHALER IH SCH (10:46)
[2018-07-04] MEDS: MINERAL OIL/PET HY-PHL TOPICAL OINTMENT 454 GM JAR TP SCH (10:46)
[2018-07-04] MEDS: FENTANYL PATCH WASTE TD PRN (11:21)
--- NOTE | 2018-07-04 11:27 | PN ---
Progress Note (short form) - Note Progress Note: clinically improved eating better ambulating soft stools Vital Signs Period Temp Pulse Resp BP Sys/Wade Pulse Ox Last 24 Hr 98.2 F-99 F 58-101 18-18 86-117/45-81 94 cor-rrr lungs clear abd soft, Umbilical hernia- soft,nt ext +pedal/pretibial edema -2+ CBC, BMP 07/04/18 06:00 07/04/18 06:00 Microbiology 06/28/18 17:21 Blood - Luisa Cath Blood Culture - Final NO GROWTH AFTER 5 DAYS INCUBATION 06/28/18 17:18 Blood - Luisa Cath Blood Culture - Final NO GROWTH AFTER 5 DAYS INCUBATION 06/29/18 13:30 Urine - Urine Clean Catch Urine Culture - Final NO GROWTH OBTAINED 06/28/18 20:18 Urine - Urine Clean Catch Urine Culture - Final NO GROWTH OBTAINED 06/25/18 09:45 Blood - Peripheral Venous Blood Culture - Final NO GROWTH AFTER 5 DAYS INCUBATION 06/25/18 09:40 Blood - Peripheral Venous Blood Culture - Final NO GROWTH AFTER 5 DAYS INCUBATION 06/28/18 16:00 Stool Clostridium difficile Antigen (JENNIFER) - Final 06/28/18 16:00 Stool Clostridium difficile Toxin Assay - Final 06/21/18 11:55 Blood - Peripheral Venous Blood Culture - Final NO GROWTH AFTER 5 DAYS INCUBATION 06/21/18 12:00 Blood - Peripheral Venous Blood Culture - Final NO GROWTH AFTER 5 DAYS INCUBATION 06/25/18 13:05 Urine - Urine Clean Catch Urine Culture - Final NO GROWTH OBTAINED 06/23/18 14:30 Urine - Urine Clean Catch Urine Culture - Final NO GROWTH OBTAINED 06/19/18 18:45 Urine - Urine Reyes Urine Culture - Final Klebsiella Pneumoniae - Esbl 06/16/18 12:50 Stool Salmonella/Shigella Culture - Final NO GROWTH OF SALMONELLA OR SHIGELLA SPECIES OBTAINED 06/16/18 12:50 Stool Campylobacter Culture - Final NO GROWTH OF CAMPYLOBACTER SPECIES OBTAINED 06/16/18 12:50 Stool Yersinia Culture - Final NO GROWTH OF YERSINIA SPECIES OBTAINED 06/16/18 12:50 Stool Vibrio Culture - Final NO GROWTH OF VIBRIO SPECIES OBTAINED 06/16/18 12:50 Stool Escherichia coli 0157 Culture - Final NO GROWTH OF E COLI 0157 OBTAINED 06/16/18 12:50 Stool Clostridium difficile Antigen (JENNIFER) - Final 11/08/18 12:50 Stool Clostridium difficile Toxin Assay - Final a/p clinically improved ecoli uti- off antibiotics anal cancer s/p chemo and RT volume overload- improved with lasix diuresis hiv- continue triumeq/valtrex she can f/u with me at the [facility] when ready for discharge Problem List - Problems (1) Anal cancer Code(s): C21.0 - MALIGNANT NEOPLASM OF ANUS, UNSPECIFIED (2) HIV (human immunodeficiency virus infection) Code(s): Z21 - ASYMPTOMATIC HUMAN IMMUNODEFICIENCY VIRUS INFECTION STATUS
[2018-07-04 12:01] VITALS: TEMP 98.1
[2018-07-04 13:00] LABS: ACANTHOCYTES 1+; ANISOCYTOSIS 1+; MACROCYTOSIS 1+; PLATELET ESTIMATE DECREASED; TEAR DROP CELLS 1+
[2018-07-04] MEDS ORDERED: SPIRONOLACTONE 25 MG TABLET (FP) PO ONE (14:26)
--- NOTE | 2018-07-04 14:26 | PN ---
Progress Note, Physician History of Present Illness: Pt seen and examined at bedside. She is awake and alert. SHe denies shortness of breath. - Current Medication List Current Medications: Active Medications Acetaminophen (Tylenol -) 325 mg PO Q8H PRN PRN Reason: PAIN LEVEL 6-10 Last Admin: 07/02/18 05:52 Dose: 325 mg Calcium Carbonate (Os-Madan 500mg -) 500 mg PO BID [facility] Last Admin: 07/04/18 09:02 Dose: 500 mg Cyclobenzaprine HCl (Flexeril -) 5 mg PO Q8H PRN PRN Reason: MUSCLE SPASMS Last Admin: 07/03/18 06:31 Dose: 5 mg Docusate Sodium (Colace -) 100 mg PO Q8H PRN PRN Reason: CONSTIPATION Emollient Ointment (Aquaphor -) 1 applic TP BID [facility] Last Admin: 07/04/18 10:46 Dose: 1 applic Enoxaparin Sodium (Lovenox -) 80 mg SQ BID [facility] Last Admin: 07/04/18 09:03 Dose: 80 mg Fentanyl (Duragesic 12mcg Patch -) 1 patch TD Q72H [facility] Last Admin: 07/04/18 10:45 Dose: 1 patch IV Flush (Luisa-Cath Flush) 10 ml IVPUSH PRN PRN PRN Reason: FLUSH Last Admin: 07/03/18 06:37 Dose: 10 ml IV Flush (Luisa-Cath Flush) 10 ml IVPUSH PRN PRN PRN Reason: protocol, maintain patency Last Admin: 07/04/18 06:10 Dose: 10 ml IV Flush (Luisa-Cath Flush) 10 ml IVPUSH PRN PRN PRN Reason: FLUSH Last Admin: 07/02/18 17:36 Dose: 10 ml Lactobacillus Acidophilus (Bacid -) 1 tab PO DAILY [facility] Last Admin: 07/04/18 09:02 Dose: 1 tab Loperamide HCl (Imodium -) 2 mg PO Q8H PRN PRN Reason: DIARRHEA Last Admin: 07/02/18 09:25 Dose: 2 mg Magnesium Oxide (Mag-Ox -) 400 mg PO BID [facility] Last Admin: 07/04/18 09:02 Dose: 400 mg Miscellaneous (Duragesic Patch Waste) 1 each TD PRN PRN PRN Reason: WASTE Last Admin: 07/04/18 11:21 Dose: 1 each Multivitamins/Minerals/Vitamin C (Tab-A-Vit -) 1 tab PO DAILY [facility] Last Admin: 07/04/18 09:02 Dose: 1 tab Non-Formulary Medication (Abacavir/Dolutegravir/Lamivudi [Triumeq Tablet]) 1 each PO DAILY [facility] Last Admin: 07/04/18 10:46 Dose: 1 each Ondansetron HCl (Zofran Injection) 8 mg IVPB Q6H PRN PRN Reason: NAUSEA AND/OR VOMITING Last Admin: 06/18/18 11:29 Dose: 8 mg Oxycodone HCl (Roxicodone -) 10 mg PO Q8H PRN PRN Reason: PAIN LEVEL 6-10 Last Admin: 07/04/18 06:09 Dose: 10 mg Phenazopyridine HCl (Pyridium -) 100 mg PO PC [facility] Last Admin: 07/04/18 09:02 Dose: 100 mg Potassium Chloride (K-Dur -) 20 meq PO DAILY [facility] Last Admin: 07/04/18 09:02 Dose: 20 meq Simethicone (Mylicon -) 80 mg PO TID [facility] Last Admin: 07/04/18 06:09 Dose: 80 mg Tiotropium [place] (Spiriva Respimat) 2 puff IH DAILY [facility] Last Admin: 07/04/18 10:46 Dose: 2 puff Valacyclovir HCl (Valtrex -) 500 mg PO DAILY [facility] Last Admin: 07/04/18 09:02 Dose: 500 mg - Objective Vital Signs: Vital Signs Temperature 98.1 F 07/04/18 10:00 Pulse Rate 98 H 07/04/18 10:00 Respiratory Rate 18 07/04/18 10:00 Blood Pressure 98/58 L 07/04/18 10:00 O2 Sat by Pulse Oximetry (%) 94 L 07/04/18 09:00 Constitutional: Yes: Calm Eyes: Yes: Conjunctiva Clear HENT: Yes: Atraumatic Cardiovascular: Yes: S1, S2 Respiratory: Yes: CTA Bilaterally Gastrointestinal: Yes: Soft Edema: Yes Edema: LLE: 1+, RLE: 1+ Neurological: Yes: Oriented Psychiatric: Yes: Oriented Labs: CBC, BMP 07/04/18 06:00 07/04/18 06:00 INR, PTT INR 1.22 (0.83-1.09) H 06/15/18 15:30 Problem List - Problems (1) Fluid overload Code(s): E87.70 - FLUID OVERLOAD, UNSPECIFIED Assessment/Plan Current Medications Generic Name Dose Route Start Last Admin Trade Name Freq PRN Reason Stop Dose Admin Acetaminophen 325 mg 06/13/18 17:05 07/02/18 05:52 Tylenol - PO 325 mg Q8H PRN Administration PAIN LEVEL 6-10 Calcium Carbonate 500 mg 06/22/18 10:00 07/04/18 09:02 Os-Madan 500mg - PO 500 mg BID TERRENCE Administration Cyclobenzaprine HCl 5 mg 06/18/18 11:44 07/03/18 06:31 Flexeril - PO 5 mg Q8H PRN Administration MUSCLE SPASMS Docusate Sodium 100 mg 06/21/18 12:58 Colace - PO Q8H PRN CONSTIPATION Emollient Ointment 1 applic 06/15/18 22:00 07/04/18 10:46 Aquaphor - TP 1 applic BID TERRENCE Administration Enoxaparin Sodium 80 mg 06/22/18 22:30 07/04/18 09:03 Lovenox - SQ 80 mg BID TERRENCE Administration Fentanyl 1 patch 06/28/18 11:00 07/04/18 10:45 Duragesic 12mcg Patch - TD 1 patch Q72H TERRENCE Administration IV Flush 10 ml 06/15/18 11:04 07/03/18 06:37 Luisa-Cath Flush IVPUSH 10 ml PRN PRN Administration FLUSH IV Flush 10 ml 06/16/18 00:22 07/04/18 06:10 Luisa-Cath Flush IVPUSH 10 ml PRN PRN Administration protocol, maintain patency IV Flush 10 ml 06/19/18 10:56 07/02/18 17:36 Luisa-Cath Flush IVPUSH 10 ml PRN PRN Administration FLUSH Lactobacillus Acidophilus 1 tab 06/22/18 10:15 07/04/18 09:02 Bacid - PO 1 tab DAILY TERRENCE Administration Loperamide HCl 2 mg 06/29/18 15:03 07/02/18 09:25 Imodium - PO 2 mg Q8H PRN Administration DIARRHEA Magnesium Oxide 400 mg 06/22/18 22:00 07/04/18 09:02 Mag-Ox - PO 400 mg BID TERRENCE Administration Miscellaneous 1 each 06/28/18 11:00 07/04/18 11:21 Duragesic Patch Waste TD 1 each PRN PRN Administration WASTE Multivitamins/Minerals/Vitamin C 1 tab 06/14/18 10:00 07/04/18 09:02 Tab-A-Vit - PO 1 tab DAILY TERRENCE Administration Non-Formulary Medication 1 each 06/14/18 16:00 07/04/18 10:46 Abacavir/Dolutegravir/Lamivudi [Triumeq Tablet] PO 1 each DAILY TERRENCE Administration Ondansetron HCl 8 mg 06/13/18 14:52 06/18/18 11:29 Zofran Injection IVPB 8 mg Q6H PRN Administration NAUSEA AND/OR VOMITING Oxycodone HCl 10 mg 07/02/18 15:19 07/04/18 06:09 Roxicodone - PO 10 mg Q8H PRN Administration PAIN LEVEL 6-10 Phenazopyridine HCl 100 mg 06/22/18 18:30 07/04/18 09:02 Pyridium - PO 100 mg PC TERRENCE Administration Potassium Chloride 20 meq 06/20/18 10:45 07/04/18 09:02 K-Dur - PO 20 meq DAILY TERRENCE Administration Simethicone 80 mg 07/02/18 09:30 07/04/18 06:09 Mylicon - PO 80 mg TID TERRENCE Administration Tiotropium [place] 2 puff 06/16/18 10:15 07/04/18 10:46 Spiriva Respimat IH 2 puff DAILY TERRENCE Administration Valacyclovir HCl 500 mg 06/14/18 16:15 07/04/18 09:02 Valtrex - PO 500 mg DAILY TERRENCE Administration Impression 1. volume overload 2. HIV 3. Hep B 4. Hep C 5. HTN 6. COPD Plan - will give another dose of aldactone today - monitor lytes and renal function - check daily weights - edema is improving - encourage PO caloric intake Dr Forde
[2018-07-04] MEDS: LOPERAMIDE HCL 2 MG CAPSULE PO PRN (14:50)
[2018-07-04 17:00] VITALS: BP 106/69; PULSE 105
--- NOTE | 2018-07-04 17:48 | DS ---
Physical Exam: SUBJECTIVE: Patient seen and examined by me at bedside. Patient reports episode of diarrhea today but has resolved since this afternoon. Patient states the imodium helps. Patient has no other complaints. Otherwise, denies any fever, chills, nausea, vomiting, chest pain, palpitations, shortness of breath OBJECTIVE: Vital Signs Period Temp Pulse Resp BP Sys/Wade Pulse Ox Last 24 Hr 98.1 F-99 F 58-105 18-18 86-117/45-81 94-94 PHYSICAL EXAM GENERAL: The patient is awake, alert, and fully oriented, in no acute distress. HEAD: Normal with no signs of trauma. EYES: PERRL, extraocular movements intact, sclera anicteric, conjunctiva clear. ENT: Oropharynx clear without exudates, moist mucous membranes.. LUNGS: Breath sounds equal, clear to auscultation bilaterally, no wheezes, no crackles, no accessory muscle use. HEART: Regular rate and rhythm, S1, S2 without murmur, rub or gallop. ABDOMEN: Soft, nontender, nondistended, normoactive bowel sounds, (+) Umbilical hernia EXTREMITIES: 2+ pitting edema NEUROLOGICAL: Cranial nerves II through XII grossly intact. Normal speech, Normal gait PSYCH: Normal mood, normal affect. SKIN: Warm, dry, normal turgor, no rashes or lesions noted. LABS Laboratory Results - last 24 hr 07/04/18 07/04/18 06:00 06:00 WBC 3.0 L RBC 2.49 L Hgb 8.5 L Hct 26.1 L MCV 105.1 H MCH 34.1 H MCHC 32.4 RDW 17.6 H Plt Count 74 L MPV 9.4 Absolute Neuts (auto) 1.9 Neutrophils % 62.0 Lymphocytes % 19.9 Monocytes % 10.5 H Eosinophils % 7.1 H Basophils % 0.5 Nucleated RBC % 0 Hypochromia 0 Platelet Estimate Decreased Polychromasia 1+ Poikilocytosis 0 Anisocytosis 1+ Microcytosis 0 Macrocytosis 1+ Tear Drop Cells 1+ Acanthocytes (Spur) 1+ Sodium 139 Potassium 3.9 Chloride 108 H Carbon Dioxide 27 Anion Gap 4 L BUN 6 L Creatinine 0.6 Creat Clearance w eGFR > 60 Random Glucose 84 Calcium 7.3 L Total Bilirubin 1.0 AST 26 ALT 16 Alkaline Phosphatase 93 Total Protein 6.0 L Albumin 2.0 L HOSPITAL COURSE: Patient is a 62 year old female with a PMHx of Anal Cancer, HIV on HAART, Hepatitis B,Hepatitis C, COPD, Sarcoidosis of Lung who presented for initiation of chemotherapy with 5- FU/Mitomycin for anal cancer. Patient required inpatient monitoring while getting chemotherapy due to comorbidities, medical history, and current medical status Throughout hospitalization patient had positive urine cultures for lactose fermenting GNR-Klebsiella ESBL as well as Diarrhea from C.diff. Patient was placed on Abx and completed 10 day course of ertapenem. Patient also developed Volume overload, was seen by Nephrology and diuresed. Patient has been off Antibiotics since the with no fevers and repeat negative cultures. Patient to be discharged and follow up Dr. Herndon at the [facility] within three days and has an appointment scheduled at [facility] with Dr. Honeycutt this (07/07/18) for hydration, monitoring, and follow up. Date of Admission:06/13/18 Date of Discharge: 07/04/18 Minutes to complete discharge: 45 Discharge Summary Reason For Visit: ANAL CANCER, Current Active Problems Abnormal CT of the abdomen (Acute) Anal cancer (Acute) Fluid overload (Acute) Incarcerated umbilical hernia (Acute) Umbilical hernia (Acute) Condition: Stable - Instructions Diet, Activity, Other Instructions: Follow-up: Call Dr. Shepherd office at [phone] to make your pop appointment (Wednesday in approximately 2 weeks after surgery as advised). Clinic is held in the Diagnostic Center on the first floor of [facility]. You have been scheduled for an appointment this (07/07/18) at [facility] For hydration and visit. You will get a call for details from the Office. Follow up with Infectious Disease, Dr. Herndon, this week. Also, see your primary medical doctor within 1-2 weeks. MEDICATIONS: -We sent a refill for your prescription Valtrex and Spiriva -We also sent a prescription for oxycodone until you see Dr. Herndon Referrals: Ronnie Green MD [Staff Physician] - Beti Herndon MD [Staff Physician] - Yan Shepherd MD [Staff Physician] - Con Serrano MD [Staff Physician] - Olga Forde MD [Staff Physician] - Disposition: HOME - Home Medications Comprehensive Discharge Medication List: Ambulatory Orders Ergocalciferol (Vitamin D2) [Vitamin D2] 50,000 unit PO Q7D 30 Days #4 capsule 12/23/17 Lactulose [Cephulac -] 10 gm PO DAILY PRN 30 Days #1 bottle 03/04/18 Abacavir/Dolutegravir/Lamivudi [Triumeq 600-50-300 mg Tablet] 1 each PO DAILY # 30 tablet 03/17/18 clonazePAM [Klonopin -] 0.25 mg PO BID PRN #60 tablet MDD 2 04/07/18 Abacavir/Dolutegravir/Lamivudi [Triumeq 600-50-300 mg Tablet] 1 each PO DAILY Oxycodone HCl/Acetaminophen [Percocet 10-325 mg Tablet] 1 each PO TID PRN #70 tablet MDD 3 05/24/18 Albuterol Sulfate Inhaler - [Ventolin HFA Inhaler -] 2 inh PO Q6H PRN 06/13/18 Tiotropium [place] [Spiriva Respimat] 4 gm IH DAILY #1 mist.inhal 07/04/18 Valacyclovir HCl [Valtrex -] 500 mg PO DAILY #7 tablet 07/04/18 This patient is new to me today: Yes Date on this admission: 07/04/18 Emergency Visit: No Critical Care patient: No - Discharge Referral Referred to [facility] Med P.C.: No
[2018-07-04] MEDS ORDERED: oxyCODONE HCL 5 MG TABLET PO PRN (18:16)
--- NOTE | 2018-07-04 19:28 | PN ---
Progress Note, Physician Chief Complaint: Pt has no complaints. She is ready to go home. - Current Medication List Current Medications: Active Medications Acetaminophen (Tylenol -) 325 mg PO Q8H PRN PRN Reason: PAIN LEVEL 6-10 Last Admin: 07/02/18 05:52 Dose: 325 mg Calcium Carbonate (Os-Madan 500mg -) 500 mg PO BID [facility] Last Admin: 07/04/18 09:02 Dose: 500 mg Cyclobenzaprine HCl (Flexeril -) 5 mg PO Q8H PRN PRN Reason: MUSCLE SPASMS Last Admin: 07/03/18 06:31 Dose: 5 mg Docusate Sodium (Colace -) 100 mg PO Q8H PRN PRN Reason: CONSTIPATION Emollient Ointment (Aquaphor -) 1 applic TP BID [facility] Last Admin: 07/04/18 10:46 Dose: 1 applic Enoxaparin Sodium (Lovenox -) 80 mg SQ BID [facility] Last Admin: 07/04/18 09:03 Dose: 80 mg Fentanyl (Duragesic 12mcg Patch -) 1 patch TD Q72H [facility] Last Admin: 07/04/18 10:45 Dose: 1 patch IV Flush (Luisa-Cath Flush) 10 ml IVPUSH PRN PRN PRN Reason: FLUSH Last Admin: 07/03/18 06:37 Dose: 10 ml IV Flush (Luisa-Cath Flush) 10 ml IVPUSH PRN PRN PRN Reason: protocol, maintain patency Last Admin: 07/04/18 06:10 Dose: 10 ml IV Flush (Luisa-Cath Flush) 10 ml IVPUSH PRN PRN PRN Reason: FLUSH Last Admin: 07/02/18 17:36 Dose: 10 ml Lactobacillus Acidophilus (Bacid -) 1 tab PO DAILY [facility] Last Admin: 07/04/18 09:02 Dose: 1 tab Loperamide HCl (Imodium -) 2 mg PO Q8H PRN PRN Reason: DIARRHEA Last Admin: 07/04/18 14:50 Dose: 2 mg Magnesium Oxide (Mag-Ox -) 400 mg PO BID [facility] Last Admin: 07/04/18 09:02 Dose: 400 mg Miscellaneous (Duragesic Patch Waste) 1 each TD PRN PRN PRN Reason: WASTE Last Admin: 07/04/18 11:21 Dose: 1 each Multivitamins/Minerals/Vitamin C (Tab-A-Vit -) 1 tab PO DAILY [facility] Last Admin: 07/04/18 09:02 Dose: 1 tab Non-Formulary Medication (Abacavir/Dolutegravir/Lamivudi [Triumeq Tablet]) 1 each PO DAILY [facility] Last Admin: 07/04/18 10:46 Dose: 1 each Ondansetron HCl (Zofran Injection) 8 mg IVPB Q6H PRN PRN Reason: NAUSEA AND/OR VOMITING Last Admin: 06/18/18 11:29 Dose: 8 mg Oxycodone HCl (Roxicodone -) 10 mg PO Q8H PRN PRN Reason: PAIN LEVEL 6-10 Last Admin: 07/04/18 14:30 Dose: 10 mg Oxycodone HCl (Roxicodone -) 10 mg PO Q8H PRN PRN Reason: PAIN LEVEL 4 - 6 Phenazopyridine HCl (Pyridium -) 100 mg PO [facility] Last Admin: 07/04/18 18:05 Dose: 100 mg Potassium Chloride (K-Dur -) 20 meq PO DAILY [facility] Last Admin: 07/04/18 09:02 Dose: 20 meq Simethicone (Mylicon -) 80 mg PO TID [facility] Last Admin: 07/04/18 14:27 Dose: 80 mg Tiotropium [place] (Spiriva Respimat) 2 puff IH DAILY [facility] Last Admin: 07/04/18 10:46 Dose: 2 puff Valacyclovir HCl (Valtrex -) 500 mg PO DAILY [facility] Last Admin: 07/04/18 09:02 Dose: 500 mg - Objective Vital Signs: Vital Signs Temperature 98.1 F 07/04/18 10:00 Pulse Rate 105 H 07/04/18 17:00 Respiratory Rate 18 07/04/18 17:00 Blood Pressure 106/69 07/04/18 17:00 O2 Sat by Pulse Oximetry (%) 94 L 07/04/18 09:00 Constitutional: Yes: No Distress, Calm, Cachectic Eyes: Yes: Conjunctiva Clear HENT: Yes: Atraumatic, Normocephalic Neck: Yes: Supple Cardiovascular: Yes: Regular Rate and Rhythm, Murmur (3/6 SM) Respiratory: Yes: Regular, CTA Bilaterally Gastrointestinal: Yes: Normal Bowel Sounds, Soft, Abdomen, Obese, Distention ...Rectal Exam: Yes: Deferred Musculoskeletal: Yes: Muscle Weakness Extremities: Yes: WNL Edema: No Peripheral Pulses WNL: Yes Peripheral Pulses: Left Radial: 2+, Right Radial: 2+, Left Doralis Pedis: 2+, Right Dorsalis Pedis: 2+ Integumentary: Yes: WNL Neurological: Yes: Alert, Oriented ...Motor Strength: WNL Psychiatric: Yes: Alert, Oriented Labs: CBC, BMP 07/04/18 06:00 07/04/18 06:00 INR, PTT INR 1.22 (0.83-1.09) H 06/15/18 15:30 Problem List - Problems (1) Anal cancer Assessment/Plan: pt follows with oncology. Code(s): C21.0 - MALIGNANT NEOPLASM OF ANUS, UNSPECIFIED (2) Fluid overload Assessment/Plan: fluid restrict 1L per day Code(s): E87.70 - FLUID OVERLOAD, UNSPECIFIED (3) Umbilical hernia Assessment/Plan: s/p reduction pt may be considered for minimally invasive repair 30days post discharge Code(s): K42.9 - UMBILICAL HERNIA WITHOUT OBSTRUCTION OR GANGRENE (4) COPD exacerbation Assessment/Plan: continue with spiriva PRN albuterol Code(s): J44.1 - CHRONIC OBSTRUCTIVE PULMONARY DISEASE W (ACUTE) EXACERBATION (5) HIV (human immunodeficiency virus infection) Assessment/Plan: continue ART Code(s): Z21 - ASYMPTOMATIC HUMAN IMMUNODEFICIENCY VIRUS INFECTION STATUS Impression/Plan Impression/Plan: DISPO: D/c home today Visit type - Emergency Visit Emergency Visit: Yes ED Registration Date: 06/13/18 Care time: The patient presented to the Emergency Department on the above date and was hospitalized for further evaluation of their emergent condition. - New Patient This patient is new to me today: Yes Date on this admission: 06/13/18 - Critical Care Critical Care patient: No - Discharge Referral Referred to [facility] Med P.C.: No
== END 2018-07-04 19:00 | disposition home health service (06) | DRG 846 ==
LOC: J7W 08:17
PROVIDERS: ADMIT Internal Medicine Hematology & Oncology; ATTEND Internal Medicine Hematology & Oncology
DX: Z51.11 Encounter for antineoplastic chemotherapy (principal); D61.810 Antineoplastic chemotherapy induced pancytopenia; C21.0 Malignant neoplasm of anus, unspecified; B18.1 Chronic viral hepatitis B without delta-agent; K42.0 Umbilical hernia with obstruction, without gangrene; K52.1 Toxic gastroenteritis and colitis; N39.0 Urinary tract infection, site not specified; G51.0 Bell's palsy; I10 Essential (primary) hypertension; J44.9 Chronic obstructive pulmonary disease, unspecified; K74.60 Unspecified cirrhosis of liver; B18.2 Chronic viral hepatitis C; D86.0 Sarcoidosis of lung; M54.5 Low back pain; F41.8 Other specified anxiety disorders; R10.33 Periumbilical pain; E88.09 Other disorders of plasma-protein metabolism, not elsewhere classified; R14.0 Abdominal distension (gaseous); T45.1X5A Adverse effect of antineoplastic and immunosuppressive drugs, initial encounter; E87.70 Fluid overload, unspecified; R00.0 Tachycardia, unspecified; E83.42 Hypomagnesemia; I95.9 Hypotension, unspecified; R33.9 Retention of urine, unspecified; E87.6 Hypokalemia; E83.51 Hypocalcemia; D70.9 Neutropenia, unspecified; D69.6 Thrombocytopenia, unspecified; D72.819 Decreased white blood cell count, unspecified; B96.1 Klebsiella pneumoniae [K. pneumoniae] as the cause of diseases classified elsewhere; Z87.891 Personal history of nicotine dependence; Z21 Asymptomatic human immunodeficiency virus [HIV] infection status
CPT/HCPCS: 36415; 71045-TC-FY; 74177-TC; 74178-TC; 76856-TC; 80048; 80053; 80076; 81003; 81015; 82378; 83605; 83735; 84132; 85025; 85027; 85610; 86850; 86900; 86901; 87040; 87045; 87046; 87086; 87177; 87186; 87209; 87324; 87449; 93005; 93010; 93306-TC; 93970-TC; 94640; 96367; 96375; 97116-GP; 97161-GP; J1100; J1447; J2469; J7030; P9047

== ENCOUNTER 2018-10-24 00:02 | Emergency (ER) | payer OTHER | END 2018-10-24 04:37 | disposition home or self-care (01) | LOC: JER 00:02 ==

== ENCOUNTER 2018-10-24 11:45 | Emergency (ER) | payer OTHER ==
[2018-10-24 12:22] VITALS: TEMP 98; BMI 14.8
[2018-10-24 13:47] LABS: BASO % 0.5 % (0-2.0); EOS % 14.5 % (0-4.5); HEMATOCRIT 31.1 % (32.4-45.2); HEMOGLOBIN 10.8 GM/dL (10.7-15.3); MCH 34.5 pg (25.7-33.7); MCHC 34.7 g/dl (32.0-36.0); MEAN CELL VOLUME 99.3 fl (80-96); MEAN PLT VOLUME 8.2 fl (7.5-11.1); MONO % 12.4 % (3.8-10.2); NEUT % 53.6 % (42.8-82.8); PLATELET COUNT 81 K/MM3 (134-434); RBC 3.13 M/mm3 (3.60-5.2); RDW 15.4 % (11.6-15.6); WHITE BLOOD COUNT 3.2 K/mm3 (4.0-10.0)
--- NOTE | 2018-10-24 14:15 | PDOC ---
History of Present Illness - General Chief Complaint: Edema Stated Complaint: RT LEG SWELLING Time Seen by Provider: 10/24/18 12:45 History Source: Patient Exam Limitations: No Limitations - History of Present Illness Initial Comments: 10/24/18 14:20 62-year-old female with history of AIDS, anal cancer and cirrhosis presents to ED with complaints of worsening abdominal distention and lower extremity edema including her groin region. Patient denies worsening difficulty breathing from her baseline. Patient denies fever, chills, chest pain, dizziness but does state increased anxiety and hopelessness since she was just here last night and was sent home after having a negative head CT and lower extremity duplex. Timing/Duration: getting worse Severity: moderate Associated Symptoms: reports: other Past History - Travel Traveled outside of the country in the last 30 days: No Close contact w/someone who was outside of country & ill: No - Past Medical History Allergies/Adverse Reactions: Allergies Allergy/AdvReac Type Severity Reaction Status Date / Time piperacillin sodium Allergy Mild Itching Verified 10/24/18 12:16 [From Zosyn] tazobactam sodium Allergy Mild Itching Verified 10/24/18 12:16 [From Zosyn] vancomycin AdvReac Intermediate Difficulty Verified 10/24/18 12:16 Breathing lactose-intolerance AdvReac Unknown Uncoded 10/24/18 12:16 Home Medications: Ambulatory Orders Ergocalciferol (Vitamin D2) [Vitamin D2] 50,000 unit PO Q7D 30 Days #4 capsule 12/23/17 Abacavir/Dolutegravir/Lamivudi [Triumeq 600-50-300 mg Tablet] 1 each PO DAILY # 30 tablet 03/17/18 clonazePAM [Klonopin -] 0.25 mg PO BID PRN #60 tablet MDD 2 04/07/18 Albuterol Sulfate Inhaler - [Ventolin HFA Inhaler -] 2 inh PO Q6H PRN #1 inhaler 09/08/18 Valacyclovir HCl [Valtrex -] 500 mg PO DAILY #30 tablet 09/08/18 Buprenorphine HCl/Naloxone HCl [Suboxone 4 mg-1 mg Sl Film] 1 each SL DAILY Tiotropium [place] [Spiriva] 2 puff PO AM 10/24/18 Anemia: Yes (hemolytic anema 2011) Asthma: Yes Cancer: No Cardiac Disorders: No CVA: No COPD: Yes CHF: No Dementia: No Diabetes: No GI Disorders: Yes (granulomatous hepatitis) Disorders: No HTN: No Hypercholesterolemia: No Kidney Stones: No Liver Disease: Yes (cirrhosis) Psychiatric Problems: Yes (Seen for depression in 1998 when diagnosed HIV+) Seizures: No Thyroid Disease: No - Surgical History Abdominal Surgery: Yes (ectopic in 1986, TUBAL LIGATION) Appendectomy: No Cardiac Surgery: No Cholecystectomy: Yes (GB SX) Lung Surgery: No Neurologic Surgery: No Orthopedic Surgery: No - Reproductive History PID: No - Immunization History Immunization Up to Date: Yes - Suicide/Smoking/Psychosocial Hx Smoking Status: Yes (QUIT 05/2012) Smoking History: Never smoked Years of Tobacco Use: 30 Have you smoked in the past 12 months: No Number of Cigarettes Smoked Daily: 5 If you are a former smoker, when did you quit?: 2000 Cigars Per Day: 0 'Breaking Loose' booklet given: 12/21/11 Hx Alcohol Use: No Drug/Substance Use Hx: No Substance Use Type: Cocaine, Heroin Hx Substance Use Treatment: Yes (detox ) Patient Lives Alone: No 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 Review of Systems - Review of Systems Able to Perform ROS?: No Is the patient limited [place]i proficient: No Constitutional: Yes: Weakness (mild generalized) HEENTM: No: Symptoms Reported Respiratory: No: Symptoms reported Cardiac (ROS): No: Symptoms Reported ABD/GI: Yes: Abdominal Distended : No: Symptoms Reported Musculoskeletal: No: Symptoms Reported Integumentary: No: Symptoms Reported Neurological: No: Symptoms reported Hematologic/Lymphatic: No: Symptoms Reported *Physical Exam - Vital Signs Last Vital Signs Temp Pulse Resp BP Pulse Ox 98.0 F 87 16 103/72 96 10/24/18 12:17 10/24/18 12:17 10/24/18 12:17 10/24/18 12:17 10/24/18 12:17 - Physical Exam General Appearance: Yes: Nourished, Appropriately Dressed. No: Apparent Distress HEENT: negative: Pale Conjunctivae Neck: positive: Supple Respiratory/Chest: positive: Normal Breath Sounds, Respiratory Distress. negative: Accessory Muscle Use Cardiovascular: positive: Regular Rhythm, Regular Rate. negative: Murmur Gastrointestinal/Abdominal: positive: Normal Bowel Sounds (muffled), Soft, Distended. negative: Tenderness Extremity: positive: Normal Range of Motion, Pedal Edema (2+ bilateral). negative: Swelling Integumentary: positive: Normal Color, Moist Neurologic: positive: Motor Strength 5/5 (ambulatory with cane) Moderate Sedation - Procedure Monitoring Vital Signs: Procedure Monitoring Vital Signs Temperature 98.0 F 10/24/18 12:17 Pulse Rate 87 10/24/18 12:17 Respiratory Rate 16 10/24/18 12:17 Blood Pressure 103/72 10/24/18 12:17 O2 Sat by Pulse Oximetry (%) 96 10/24/18 12:17 ED Treatment Course - LABORATORY CBC & Chemistry Diagram: 10/24/18 13:40 10/24/18 13:23 - ADDITIONAL ORDERS Additional order review: 10/24/18 13:40 RBC 3.13 L MCV 99.3 H MCHC 34.7 RDW 15.4 MPV 8.2 D Neutrophils % 53.6 D Lymphocytes % 19.0 D Monocytes % 12.4 H Eosinophils % 14.5 H D Basophils % 0.5 - RADIOLOGY Radiology Studies Ordered: Category Date Time Status ABDOMEN & PELVIS CT W/O CONTR [CT] Stat CT Scan 10/24/18 13:14 Ordered Medical Decision Making - Medical Decision Making 10/24/18 14:07 Chief complaint: Abdominal distention and lower extremity edema seen here yesterday with a negative duplex Exam. Noted distended abdomen with muffled bowel sounds 4. Patient slightly anxious and tearful. Plan: CBC, comp, urine, abdominal ultrasound 10/24/18 15:43 Laboratory Tests 09/06/18 09/29/18 10/24/18 10:59 10:30 01:10 WBC 3.1 L Hgb 10.9 10.9 Hct MCV Plt Count 73 L D 87 L Monocytes % Eosinophils % Sodium Potassium Chloride Carbon Dioxide Anion Gap BUN Creatinine Random Glucose Calcium Total Bilirubin AST ALT Alkaline Phosphatase Total Protein Albumin Urine Protein Urine Ketones Urine Nitrite Urine Urobilinogen Ur Leukocyte Esterase Urine WBC (Auto) Urine RBC (Auto) 10/24/18 10/24/18 10/24/18 13:23 13:23 13:40 WBC 3.2 L Hgb 10.8 Hct 31.1 L MCV 99.3 H Plt Count 81 L Monocytes % 12.4 H Eosinophils % 14.5 H D Sodium 141 Potassium 3.7 Chloride 109 H Carbon Dioxide 27 Anion Gap 4 L BUN 9 Creatinine 0.8 Random Glucose 94 Calcium 7.9 L Total Bilirubin 0.8 AST 34 ALT 25 Alkaline Phosphatase 151 H Total Protein 7.3 Albumin 2.4 L Urine Protein 1+ H Urine Ketones Negative Urine Nitrite Negative Urine Urobilinogen 4.0 e.u/dl H Ur Leukocyte Esterase Negative Urine WBC (Auto) 15 Urine RBC (Auto) 6 10/24/18 17:50 Previous cx shows kleb pneum ( ESBL) + sensitivity to meropenum. Dose ordered 10/24/18 18:47 Pt eating and ambulatory. Daughter at bedside. Reviewed ct findings which showed mild - mod ascites. + mild subcutaneous edema near renato flank region. Explained to pt/family about elevating extremities and decrease nacl intake. Pt understands she may need to retrun for iv abx if u cx is + for ESBL. She understands the ED will f/u u cx. *DC/Admit/Observation/Transfer Diagnosis at time of Disposition: Cirrhosis, Swelling of right lower extremity, Edema - Discharge Dispostion Disposition: HOME Condition at time of disposition: Good - Referrals Referrals: Beti Herndon MD [Primary Care Provider] - - Patient Instructions Printed Discharge Instructions: DI for Dependent Edema, DI for Ascites Additional Instructions: Please elevate your legs when not walking. Avoid excessive salt intake. You may receive phone call to return to the ED if urine culture shows infection which needs IV antibiotics - Post Discharge Activity
[2018-10-24 14:18] LABS: BLOOD UREA NITROGEN 9 mg/dL (7-18); CHLORIDE 109 mmol/L (98-107); CO2 27 mmol/L (21-32); CREATININE 0.8 mg/dL (0.55-1.3); GLUCOSE,RANDOM 94 mg/dL (74-106); POTASSIUM 3.7 mmol/L (3.5-5.1); SODIUM 141 mmol/L (136-145)
[2018-10-24 14:19] LABS: ALBUMIN 2.4 g/dl (3.4-5.0); ALK PHOS 151 U/L (45-117); ANION GAP 4 MMOL/L (8-16); BILIRUBIN,TOTAL 0.8 mg/dL (0.2-1); CALCIUM 7.9 mg/dL (8.5-10.1); SGOT/AST 34 U/L (15-37); SGPT/ALT 25 U/L (13-61); TOT PROT 7.3 g/dl (6.4-8.2)
[2018-10-24 15:01] LABS: URINE APPEARANCE CLEAR; URINE BILIRUBIN NEGATIVE (<2.0 mg/dL); URINE COLOR AMBER; URINE GLUCOSE (UA) NEGATIVE (NEGATIVE); URINE KETONE NEGATIVE (NEGATIVE); URINE LEUK ESTERASE NEGATIVE (NEGATIVE); URINE NITRITE NEGATIVE (NEGATIVE); URINE PROTEIN 1+ (NEGATIVE); URINE UROBILINOGEN 4.0 E.U/dl mg/dL (0.2-1.0)
[2018-10-24 15:03] LABS: URINE MUCUS MANY
[2018-10-24] MEDS ORDERED: MEROPENEM 1 GM in DEXTROSE 5%-WATER 100 ML IVPB ONE (17:48)
[2018-10-24] MEDS ORDERED: oxyCODONE HCL 5 MG TABLET PO ONE (18:09)
[2018-10-24] MEDS ORDERED: oxyCODONE HCL 5 MG TABLET ONE (18:20)
[2018-10-24 19:16] VITALS: BP 103/64; PULSE 92
--- NOTE | 2018-10-24 22:42 | EKG ---
Test Reason : Blood Pressure : / mmHG Vent. Rate : 075 BPM Atrial Rate : 075 BPM P-R Int : 150 ms QRS Dur : 096 ms QT Int : 398 ms P-R-T Axes : 067 -05 049 degrees QTc Int : 444 ms NORMAL SINUS RHYTHM INCOMPLETE RIGHT BUNDLE BRANCH BLOCK BORDERLINE ECG WHEN COMPARED WITH ECG OF 24-OCT-2018 00:44, NO SIGNIFICANT CHANGE WAS FOUND Confirmed by MARILEE QUISPE MD ([id number]) on 10/24/2018 10:41:37 PM Referred By: Confirmed By:MARILEE QUISPE MD
== END 2018-10-24 19:16 | disposition home or self-care (01) ==
LOC: JER 11:45
DX: R18.8 Other ascites (principal); K74.69 Other cirrhosis of liver; R60.0 Localized edema; C21.0 Malignant neoplasm of anus, unspecified; J45.909 Unspecified asthma, uncomplicated; J44.9 Chronic obstructive pulmonary disease, unspecified; K75.3 Granulomatous hepatitis, not elsewhere classified; F41.8 Other specified anxiety disorders; F32.9 Major depressive disorder, single episode, unspecified; Z21 Asymptomatic human immunodeficiency virus [HIV] infection status
CPT/HCPCS: 36415; 70450-TC; 71045-TC-FY; 74176-TC; 80053; 81003; 81015; 82550; 83880; 84484; 85025; 85610; 85730; 87086; 93005; 93010; 93971-TC; 99283-25; 99284-25; Q9967

== ENCOUNTER → 2019-01-19 | Day surgery (SDC) | payer OTHER | LOC: JRADIR 08:43 | DX: C80.1 Malignant (primary) neoplasm, unspecified (principal) ==

== ENCOUNTER 2019-03-13 01:58 | Inpatient (IN) | payer OTHER ==
[2019-03-13] MEDS ORDERED: ACETAMINOPHEN 1000 MG/100 ML VIAL (NON FORMULARY) IVPB ONE (02:21)
[2019-03-13] MEDS ORDERED: LACTATED RINGERS SOLUTION 1000 ML INFUS.BAG IV ONE ×2 (02:21→06:41)
--- NOTE | 2019-03-13 02:49 | PDOC ---
Attending Attestation - Resident Resident Name: Giovanny Metcalf - ED Attending Attestation I have performed the following: I have examined & evaluated the patient, The case was reviewed & discussed with the resident, I agree w/resident's findings & plan - HPI HPI: 03/13/19 04:20 HIV+ comes with cough. Her CD$ count is less than 200, yet she takes no prophylaxis meds. - Physicial Exam PE: 03/13/19 04:21 Agree with resident exam - Medical Decision Making 03/13/19 04:24 CXR shows that pt has increased markings bilaterally; similar to her old cxr; no ground glass pattern on the XR. We will treat for a community acquired pneumonia. Pt is allergic to zosyn/timentin/vanco and will be treated with cefepime and zithromax, and she will be given Atorvaquone PO for PCP prophylaxis.
--- NOTE | 2019-03-13 03:38 | PDOC ---
History of Present Illness - General Chief Complaint: SIRS, Suspected/Possible Stated Complaint: FEVER Time Seen by Provider: 03/13/19 02:19 History Source: Patient, Family (Son present at bedside.), Old Records Exam Limitations: No Limitations - History of Present Illness Initial Comments: HPI: 63 y/o female presenting to [facility] ER complaining of fever (TMax 103 orally today) , cough productive for yellow sputum, and general malaise x2 days. Fever has improved with PO Tylenol. SOB has improved somewhat with albuterol MDI. Denies GI or symptoms. Taking PO normally. Reports daughter had similar symptoms. Pt HIV positive with last CD4 count 146 on 07 February 2019. Follows with Dr. Herndon for ID and primary care. Has not been taking prescribed prophylactic antibiotic. Endorses good compliance with HAART therapy. Pt is s/p chemotherapy (Winter 2017) for Stage T2 Anal Squamous Cell Carcinoma. PIC line removed January 2019. Dr. Bustos reportedly said the therapy was successful. Oncologist: Dr. Serraon GI: Dr. Wesley (primary), Dr. Keyes (referral) ID: Beti Deng Social Hx: - Former smoker Medical Hx: - H/o Anal Squamous Cell Carcinoma, Staged T2 - H/o Bleeding External Hemorrhoids - HIV/AIDS, last CD4 146 viral load undetectable (07 February 2019) - Sarcoidosis - Chronic Liver Disease - COPD - H/o Pulmonary aspergillosis - H/o Opioid dependence - Enlarged abdominal lymph nodes, stable since 2012 per pt - Chronic Norman Palsy, present since childhood Review of Systems: In addition to that documented in the HPI above, the additional ROS was obtained : Constitutional: Endorses fevers. Denies chills Head: Denies vision changes ENMT: Denies sore throat CV: Denies chest pain Resp: Per HPI GI: Denies abd pain, vomiting, or diarrhea : Denies painful urination, increased urinary frequency, or hematuria MSK: Denies recent trauma Skin: Denies new rashes Neuro: Denies new numbness or tingling or weakness Endocrine: Denies polyuria Heme: Denies bleeding or bruising Physical Examination: Constitutional: Nontoxic elderly female in no acute distress or obvious discomfort. Thin body habitus. Found semi-fowlers on hospital bed. Alert and oriented x4. Answered all questions appropriately and completely. Speech was non -labored, non-pressured. Head: Normocephalic. No obvious external signs of trauma. Cardiovascular / Chest: Tachycardic rate with regular rhythm. No murmur, rubs, clicks, or gallops. Peripheral pulses: radial pulses full. Respiratory: Breathing mildly tachypneic but unlabored. Equal chest rise and fall. No stridor, no wheezing, no rhonchi. Speaking in complete sentences without pausing for breath. Gastrointestinal: abdomen is soft, non-tender, non-distended. Neuro: Alert and oriented. Moving all four extremities spontaneously. Skin: Warm, dry, and intact. : No R or L CVA tenderness. Psych: Affect: appropriate. Mood: normal. MDM: *Reviewed vital signs, nursing notes, and prior visit documentation (if available). 63 y/o female presenting for SOB, productive cough, and fever in setting of AIDS with CD4 <200. Not taking prophylaxis but complaint with HAART. Febrile orally. Vitals remarkable for tachycardia without hypotension. Normoxic on room air. Physical exam as described above. Ordered ED sepsis order set and repeat CD4 count. Ordered Cefepime and Azithromycin for abx coverage. Ordered Bactrim for PCP. Ordered LF IVFB and Tylenol for symptom relief. CXR unremarkable for consolidation or ground glass appearance per ED wet read. CBC unremarkable for leukocytosis. Thrombocytopenia and mild anemia appears baseline per [facility] records. CMP unremarkable for significant electrolyte derangement, renal dysfunction, or liver dysfunction. UA unremarkable for pyuria or nitrites. Trace leukocyte esterase without urinary symptoms. Troponin not elevated. Lactic acid not elevated. Suspect possible viral bronchitis, however will admit pt given septic vitals and pts immunocompromised state. 05:[address] discussion with resident Dr. Mendoza. Verbally appraised of the pts HPI, ED course, and current plan of management. Will admit pt to med/surg for attending Dr. Boswell. Giovanny Metcalf M.D., PGY2 Emergency Medicine Resident Past History - Past Medical History Allergies/Adverse Reactions: Allergies Allergy/AdvReac Type Severity Reaction Status Date / Time piperacillin sodium Allergy Mild Itching Verified 03/13/19 02:04 [From Zosyn] tazobactam sodium Allergy Mild Itching Verified 03/13/19 02:04 [From Zosyn] vancomycin AdvReac Intermediate Difficulty Verified 03/13/19 02:04 Breathing lactose-intolerance AdvReac Unknown Uncoded 03/13/19 02:04 Home Medications: Ambulatory Orders Ergocalciferol (Vitamin D2) [Vitamin D2] 50,000 unit PO Q7D 30 Days #4 capsule 10/27/18 Oxycodone HCl 10 mg PO TID PRN #90 tablet MDD 3 02/06/19 Albuterol Sulfate Inhaler - [Ventolin HFA Inhaler -] 2 inh PO Q6H PRN #1 inhaler 02/07/19 Bictegrav/Emtricit/Tenofov [place] [Biktarvy 50-200-25 mg Tablet] 1 each PO DAILY # 30 tablet 02/07/19 Valacyclovir HCl [Valtrex -] 500 mg PO DAILY #30 tablet 02/07/19 Tiotropium [place] [Spiriva Respimat] 2 puff IH DAILY #1 mist.inhal 02/10/19 Atovaquone [Mepron -] 1,500 mg PO DAILY #210 ml 02/14/19 Anemia: Yes (hemolytic anema 2011) Asthma: Yes Cancer: Yes (history of rectal cancer - treated and cured) Cardiac Disorders: No CVA: No COPD: Yes CHF: No Dementia: No Diabetes: No GI Disorders: Yes (RECTAL BLEEDING,SMALL DISTAL ESOPHAGEAL VARICES) Disorders: No HTN: No Hypercholesterolemia: No Kidney Stones: No Liver Disease: Yes (LIVER CIRRHOSIS) Psychiatric Problems: Yes (Seen for depression in 1998 when diagnosed HIV+) Seizures: No Thyroid Disease: No - Surgical History Abdominal Surgery: No Appendectomy: No Cardiac Surgery: No Cholecystectomy: Yes (GB SX-ON VENTILLATOR FOR 3 DAYS) Lung Surgery: No Neurologic Surgery: No Orthopedic Surgery: No - Reproductive History PID: No - Immunization History Immunization Up to Date: Yes - Suicide/Smoking/Psychosocial Hx Smoking Status: Yes (QUIT 05/2012) Smoking History: Current some day smoker Years of Tobacco Use: 30 Have you smoked in the past 12 months: No Number of Cigarettes Smoked Daily: 5 If you are a former smoker, when did you quit?: 2000 Cigars Per Day: 0 Information on smoking cessation initiated: No 'Breaking Loose' booklet given: 12/21/11 Hx Alcohol Use: No (none x 10 years) Drug/Substance Use Hx: No (none x 15+ years) Substance Use Type: Cocaine, Heroin Hx Substance Use Treatment: Yes (detox ) *Physical Exam - Vital Signs Last Vital Signs Temp Pulse Resp BP Pulse Ox 101.3 F H 130 H 26 H 104/53 L 98 03/13/19 02:02 03/13/19 02:02 03/13/19 02:02 03/13/19 02:02 03/13/19 02:02 ED Treatment Course - LABORATORY CBC & Chemistry Diagram: 03/13/19 03:25 03/13/19 03:25 - RADIOLOGY Radiology Studies Ordered: Category Date Time Status CHEST X-RAY PORTABLE* [RAD] Stat Radiology 03/13/19 02:20 Ordered *DC/Admit/Observation/Transfer Diagnosis at time of Disposition: Productive cough, Shortness of breath, AIDS (acquired immunodeficiency syndrome ), CD4 <=200, Tachycardia Sepsis Qualifiers: Sepsis type: sepsis due to unspecified organism Sepsis acute organ dysfunction status: without acute organ dysfunction Qualified Code(s): A41.9 - Sepsis, unspecified organism Fever Qualifiers: Fever type: unspecified Qualified Code(s): R50.9 - Fever, unspecified - Discharge Dispostion Condition at time of disposition: Stable Decision to Admit order: Yes - Referrals - Patient Instructions - Post Discharge Activity
[2019-03-13] MEDS ORDERED: ACETAMINOPHEN INJECTION 100 ML IVPB ONE (04:03)
[2019-03-13 04:04] LABS: BASO % 0.1 % (0-2.0); EOS % 1.4 % (0-4.5); HEMATOCRIT 30.2 % (32.4-45.2); HEMOGLOBIN 10.2 GM/dL (10.7-15.3); LYMPH % 6.4 % (8-40); MCH 32.3 pg (25.7-33.7); MCHC 33.6 g/dl (32.0-36.0); MEAN CELL VOLUME 96.2 fl (80-96); MEAN PLT VOLUME 10.2 fl (7.5-11.1); MONO % 15.5 % (3.8-10.2); NEUT % 76.6 % (42.8-82.8); PLATELET COUNT 70 K/MM3 (134-434); RBC 3.14 M/mm3 (3.60-5.2); RDW 15.2 % (11.6-15.6); WHITE BLOOD COUNT 6.5 K/mm3 (4.0-10.0)
[2019-03-13] MEDS ORDERED: CEFEPIME HCL/D5W 1 GM/50 ML BAG IVPB ONE (04:04)
[2019-03-13] MEDS ORDERED: AZITHROMYCIN IVPB 500 MG in DEXTROSE 5%-WATER - 250 ML IVPB ONE (04:06)
[2019-03-13] MEDS ORDERED: ATOVAQUONE 750 MG/5 ML (UNIT-DOSE PACKAGING) PO ONE (04:07)
[2019-03-13 04:10] LABS: EPI CELLS 4.4 /HPF (0-5/HPF); HYALINE CASTS 6 /lpf (0-8); URINE APPEARANCE CLEAR; URINE BACTERIA 83.1 /hpf (NEGATIVE); URINE BILIRUBIN 1+ (NEGATIVE); URINE COLOR DK YELLOW; URINE GLUCOSE (UA) NEGATIVE (NEGATIVE); URINE KETONE TRACE (NEGATIVE); URINE LEUK ESTERASE TRACE (NEGATIVE); URINE NITRITE NEGATIVE (NEGATIVE); URINE PROTEIN TRACE (NEGATIVE); URINE RBC 5 /hpf (0-4); URINE WBC 2 /hpf (0-5); VENOUS PC02 30.9 mmHg (41-51); VENOUS PH 7.44 (7.31-7.41)
[2019-03-13 04:12] LABS: VENOUS PO2 90.3 mmHg (30-40)
[2019-03-13] MEDS ORDERED: CEFEPIME 1 GM/100 ML BAG IVPB ONE (04:13)
[2019-03-13] MEDS ORDERED: AZITHROMYCIN IVPB 500 MG/250 ML BAG IVPB ONE (04:14)
[2019-03-13 04:22] LABS: INR 1.43 (0.83-1.09); PROTHROMBIN TIME (PATIENT) 16.9 SEC (9.7-13.0)
[2019-03-13] MEDS ORDERED: SULFAMETHOXAZOLE/TRIMETHOPRIM 800MG/160MG D.S. TABLET PO ONE (04:26)
[2019-03-13 04:44] LABS: ALBUMIN 2.4 g/dl (3.4-5.0); BILIRUBIN,TOTAL 1.4 mg/dL (0.2-1); BLOOD UREA NITROGEN 11.2 mg/dL (7-18); CALCIUM 7.5 mg/dL (8.5-10.1); CREATININE 0.9 mg/dL (0.55-1.3); POTASSIUM 3.7 mmol/L (3.5-5.1)
[2019-03-13 05:02] LABS: PLATELET ESTIMATE DECREASED; SMUDGE CELLS FEW
[2019-03-13] MEDS ORDERED: ALBUTEROL SO4 0.083% IH SOL 2.5 MG/3 ML VIAL.NEB. NEB PRN (05:17)
[2019-03-13] MEDS ORDERED: ACETAMINOPHEN 325 MG TABLET (FP) PO PRN (05:17)
--- NOTE | 2019-03-13 05:30 | HP ---
<Callie Mendoza - Last Filed: 03/13/19 06:36> CHIEF COMPLAINT: cough, fever PCP: Dr. Herndon HISTORY OF PRESENT ILLNESS: Patient is a 63 y/o female with a history of anal cancer ( in remission since June) HIV on HARRT, COPD, and sarcoidosis who presents for fever and cough. Patient reports on wednesday ( 3 days ago) she started to feel off. She took her temperature and had a 102 fever. She took medication and the fever went down. The next couple of days the fever returned and was high at 103. She started to have pain in her throat and today started to have a productive cough. The sputum was yellow. Patient lives with her daughter who has recently had a " GI illness". No other sick contacts. Patients fever would come down with tylenol and she sucked on losenges to help with the throat pain. Patients Tcells have recently been low which is attributed to her recent chemo treatment. Her most recent Tcells was 136. She called Dr. Alfaro and she took one of her Bactrims yesterday, but has not been compliant with her bactrim or atovaquone otherwise. Patient completed treatment for her Anal cancer in June and has since been in remission. Patient has no diarrhea, nausea, vomiting, chest pain, or shortness of breath. ER course was notable for: (1) Cefepine, Azithromycin, bactrim (2) (3) Recent Travel: denies PAST MEDICAL HISTORY: anal cancer ( in remission since June) HIV on HARRT, COPD, and sarcoidosis Patient denied Hep B and Hep C PAST SURGICAL HISTORY: cholecystectomy, multiple biopsies, ectopic Social History: Smoking: quit in 2012, 35 year pack history Alcohol: denies Drugs: denies Family History: Allergies piperacillin sodium [From Zosyn] Allergy (Mild, Verified 03/13/19 02:04) Itching tazobactam sodium [From Zosyn] Allergy (Mild, Verified 03/13/19 02:04) Itching vancomycin Adverse Reaction (Intermediate, Verified 03/13/19 02:04) Difficulty Breathing lactose-intolerance Adverse Reaction (Unknown, Uncoded 03/13/19 02:04) HOME MEDICATIONS: Home Medications Medication Instructions Recorded Ergocalciferol (Vitamin D2) 50,000 unit PO Q7D 30 Days #4 10/27/18 [Vitamin D2] capsule Oxycodone HCl 10 mg PO TID PRN #90 tablet MDD 3 02/06/19 Albuterol Sulfate Inhaler - 2 inh PO Q6H PRN #1 inhaler 02/07/19 [Ventolin HFA Inhaler -] Bictegrav/Emtricit/Tenofov Ala 1 each PO DAILY #30 tablet 02/07/19 [Biktarvy 50-200-25 mg Tablet] Valacyclovir HCl [Valtrex -] 500 mg PO DAILY #30 tablet 02/07/19 Tiotropium [place] [Spiriva 2 puff IH DAILY #1 mist.inhal 02/10/19 Respimat] REVIEW OF SYSTEMS CONSTITUTIONAL: fever, chills, Absent: diaphoresis, generalized weakness, malaise, loss of appetite, weight change HEENT: Absent: rhinorrhea, nasal congestion, throat pain, throat swelling, difficulty swallowing, mouth swelling, ear pain, eye pain, visual changes CARDIOVASCULAR: Absent: chest pain, syncope, palpitations, irregular heart rate, lightheadedness , peripheral edema RESPIRATORY: cough Absent: , shortness of breath, dyspnea with exertion, orthopnea, wheezing, stridor, hemoptysis GASTROINTESTINAL: Absent: abdominal pain, abdominal distension, nausea, vomiting, diarrhea, constipation, melena, hematochezia GENITOURINARY: Absent: dysuria, frequency, urgency, hesitancy, hematuria, flank pain, genital pain MUSCULOSKELETAL: Absent: myalgia, arthralgia, joint swelling, back pain, neck pain SKIN: Absent: rash, itching, pallor HEMATOLOGIC/IMMUNOLOGIC: Absent: easy bleeding, easy bruising, lymphadenopathy, frequent infections ENDOCRINE: Absent: unexplained weight gain, unexplained weight loss, heat intolerance, cold intolerance NEUROLOGIC: Absent: headache, focal weakness or paresthesias, dizziness, unsteady gait, seizure, mental status changes, bladder or bowel incontinence PSYCHIATRIC: Absent: anxiety, depression, suicidal or homicidal ideation, hallucinations. PHYSICAL EXAMINATION Vital Signs - 24 hr 03/13/19 02:02 Temperature 101.3 F H Pulse Rate 130 H Respiratory 26 H Rate Blood Pressure 104/53 L O2 Sat by Pulse 98 Oximetry (%) GENERAL: Awake, alert, and fully oriented, in no acute distress. HEAD: Normal with no signs of trauma. EYES: Pupils equal, round and reactive to light, extraocular movements intact, EARS, NOSE, THROAT: Moist mucous membranes. No erythema LUNGS: Breath sounds equal, expiratory wheezing, HEART: Regular rate and rhythm, normal S1 and S2 without murmur, rub or gallop. ABDOMEN: Soft, nontender, not distended, normoactive bowel sounds, no guarding, no rebound, no masses. MUSCULOSKELETAL: Normal range of motion at all joints. ss. LOWER EXTREMITIES: 2+ pulses, warm, well-perfused. No calf tenderness. No peripheral edema. NEUROLOGICAL: sensation intact b/l, LE strength 5/5 SKIN: Warm, dry, normal turgor, no rashes or lesions noted, normal capillary refill. CBC,CMP WBC 6.5 K/mm3 (4.0-10.0) 03/13/19 03:25 RBC 3.14 M/mm3 (3.60-5.2) L 03/13/19 03:25 Hgb 10.2 GM/dL (10.7-15.3) L 03/13/19 03:25 Hct 30.2 % (32.4-45.2) L 03/13/19 03:25 MCV 96.2 fl (80-96) H 03/13/19 03:25 MCH 32.3 pg (25.7-33.7) 03/13/19 03:25 MCHC 33.6 g/dl (32.0-36.0) 03/13/19 03:25 RDW 15.2 % (11.6-15.6) 03/13/19 03:25 Plt Count 70 K/MM3 (134-434) L 03/13/19 03:25 MPV 10.2 fl (7.5-11.1) 03/13/19 03:25 Absolute Neuts (auto) 5.0 K/mm3 (1.5-8.0) 03/13/19 03:25 Total Counted 100 03/13/19 03:25 Neutrophils % 76.6 % (42.8-82.8) 03/13/19 03:25 Neutrophils % (Manual) 69.0 % (42.8-82.8) 03/13/19 03:25 Band Neutrophils % 4.0 % 03/13/19 03:25 Lymphocytes % 6.4 % (8-40) L D 03/13/19 03:25 Lymphocytes % (Manual) 10.0 % (8-40) D 03/13/19 03:25 Monocytes % 15.5 % (3.8-10.2) H 03/13/19 03:25 Monocytes % (Manual) 13 % (3.8-10.2) H 03/13/19 03:25 Eosinophils % 1.4 % (0-4.5) 03/13/19 03:25 Basophils % 0.1 % (0-2.0) 03/13/19 03:25 Nucleated RBC % 0 % (0-0) 03/13/19 03:25 Smudge Cells Few 03/13/19 03:25 Hypochromia 1+ 03/13/19 03:25 Platelet Estimate Decreased 03/13/19 03:25 Platelet Comment No clumping noted 03/13/19 03:25 Platelet Comment No clotting detected 03/13/19 03:25 Sodium 137 mmol/L (136-145) 03/13/19 03:25 Potassium 3.7 mmol/L (3.5-5.1) 03/13/19 03:25 Chloride 107 mmol/L (98-107) 03/13/19 03:25 Carbon Dioxide 23 mmol/L (21-32) 03/13/19 03:25 Anion Gap 7 MMOL/L (8-16) L 03/13/19 03:25 BUN 11.2 mg/dL (7-18) 03/13/19 03:25 Creatinine 0.9 mg/dL (0.55-1.3) 03/13/19 03:25 Est GFR (CKD-EPI)AfAm 77.77 03/13/19 03:25 Est GFR (CKD-EPI)NonAf 67.10 03/13/19 03:25 Random Glucose 116 mg/dL (74-106) H 03/13/19 03:25 Lactic Acid 1.3 mmol/L (0.4-2.0) 03/13/19 03:25 Calcium 7.5 mg/dL (8.5-10.1) L 03/13/19 03:25 Total Bilirubin 1.4 mg/dL (0.2-1) H 03/13/19 03:25 AST 32 U/L (15-37) 03/13/19 03:25 ALT 21 U/L (13-61) 03/13/19 03:25 Alkaline Phosphatase 129 U/L (45-117) H 03/13/19 03:25 Troponin I < 0.02 ng/ml (0.00-0.05) 03/13/19 03:25 Total Protein 7.0 g/dl (6.4-8.2) 03/13/19 03:25 Albumin 2.4 g/dl (3.4-5.0) L 03/13/19 03:25 ASSESSMENT/PLAN: Patient is a 63 y/o female with a history of anal cancer ( in remission since June) HIV on HARRT, COPD, and sarcoidosis who presents for fever and cough. #SIRS - 2/2 to URI vs PNA - fever 103, pulse 103 - Received Cefepine, Azithromycin and bactrim - CXR: clear, no infiltrates noted - UA: trace LE, WBC - continue bactrim - f/u UCX - Will continue Cefepine, Azithro and Bactrim #HIV - recent Tcell 136, viral lode undetectable - continue Bactrim - continue Valtrex 500 po daily - repeat CD4 and Tcell pending - f/u with Dr. Herndon #thrombocytopenia - chronic, past platelets ~60 - likely 2/2 to recent cancer treatment #chronic low back pain -continue Oxycodone 10 mg TID prn #anal cancer - in remission - follows with Dr. Serrano as an out patient #COPD - continue duonebs QID and albuterol q4h prn - Q1H - prednisone 60 daily FEN - Regular diet - SCD's dvt ppx Dispo: monitor on med-surg Visit type - Emergency Visit Emergency Visit: No - New Patient This patient is new to me today: No - Critical Care Critical Care patient: No ATTENDING PHYSICIAN STATEMENT I saw and evaluated the patient. I reviewed the resident's note and discussed the case with the resident. I agree with the resident's findings and plan as documented. SUBJECTIVE: OBJECTIVE: ASSESSMENT AND PLAN: <Hellen Iverson - Last Filed: 03/13/19 08:55> addendum: Family Hx: No family hx of any disease. ATTENDING PHYSICIAN STATEMENT I saw and evaluated the patient. I reviewed the resident's note and discussed the case with the resident. I agree with the resident's findings and plan as documented. SUBJECTIVE: OBJECTIVE: ASSESSMENT AND PLAN:
--- NOTE | 2019-03-13 06:28 | PN ---
Teaching Attending Note Name of Resident: Callie Mendoza ATTENDING PHYSICIAN STATEMENT I saw and evaluated the patient. I reviewed the resident's note and discussed the case with the resident. I agree with the resident's findings and plan as documented. Seen and examined; please refer to resident note for further historical information. Last CD4 <200 in January, intermittent compliance with PCP ppx 2/2 med intolerance (tried atovaquone but didn't tolerate as well). Has been having worsening URI sx with fever; CD4 pending. Placing on medicine with ID, pulm consult. Does have hx pulm asperigilosis, etc. as documented in prior encounters. VS, labs, imaging reveiwed NAD, AAO, resting in bed RRR s1/2 Lungs mostly CTAB, w/ sym exp NT ND +BS CN2-12 wnl, no fnd Normal mood, appropriate behavior CXR reviewed; final report pending ASSESSMENT AND PLAN: Patient presents with URI sx and fever with known CD4 count <200 in 01/2019; she is afebrile and hemodynamically stable. Admitting to medicine with ID and pulmonary consults. # URI vs. PNA -Hydrate and recheck CXR (urine ketones endorse dehydration, could be hidden, etc.). Bolus 500cc LR and encourage PO hydration -Cefepime, azithro, bactrim. ID consult. -Followup CD4 count, final read. # HIV -Checking CD4/VL # Chronic Thrombocytopenia -Stable, 2/2 above # Hx asperigilosis # Hx Hepatitis # Hx ESBL+ UTI # Hx Vivas's Palsy # Hx COPD (staging unknown) # Hx HTN # Hx AI hemolytic anemia # Hx SCC s/p tx
[2019-03-13 07:28] LABS: ALBUMIN 2.3 g/dl (3.4-5.0); BILIRUBIN,TOTAL 1.3 mg/dL (0.2-1); BLOOD UREA NITROGEN 11.4 mg/dL (7-18); CALCIUM 7.4 mg/dL (8.5-10.1); CREATININE 0.9 mg/dL (0.55-1.3); POTASSIUM 3.4 mmol/L (3.5-5.1); TOT PROT 6.3 g/dl (6.4-8.2)
[2019-03-13] MEDS: ALBUTEROL SO4 2.5/IPRATROPIUM 0.5 INH SOL 3 ML VIAL.NEB. NEB SCH ×4 (08:15→20:23)
[2019-03-13] MEDS ORDERED: ALBUTEROL SO4 2.5/IPRATROPIUM 0.5 INH SOL 3 ML VIAL.NEB. NEB ONE (08:18)
[2019-03-13 08:23] LABS: BASO % 0.2 % (0-2.0); EOS % 1.2 % (0-4.5); HEMATOCRIT 27.8 % (32.4-45.2); HEMOGLOBIN 9.5 GM/dL (10.7-15.3); MCH 32.4 pg (25.7-33.7); MCHC 34.2 g/dl (32.0-36.0); MEAN CELL VOLUME 94.8 fl (80-96); MEAN PLT VOLUME 10.6 fl (7.5-11.1); MONO % 15.4 % (3.8-10.2); NEUT % 76.2 % (42.8-82.8); PLATELET COUNT 63 K/MM3 (134-434); RBC 2.94 M/mm3 (3.60-5.2); RDW 15.4 % (11.6-15.6); WHITE BLOOD COUNT 6.2 K/mm3 (4.0-10.0)
--- NOTE | 2019-03-13 09:33 | PN ---
Progress Note (short form) - Note Progress Note: ID consult dictated imp/reccd 63 yo female with stable HIV and anal cancer- cd4 recently under 200 after completing chemo for anal cancer- was on biktarvy and mepron (did not tolerate bactrim) viral load suppressed, she went to [place] on 03/03 to visit her brother daughter had a stomach bug this past March 09 she started having face pressure and thought she was getting a sinus infection, she started losing her voice on Wednesday she started having fevers and called our office from [place] on Wednesday, she spoke to Dr Alfaro who advised medical evaluation so she elected to come back to [place] no vomiting no diarrhea no dysuria +cough- started last night +SOB fever to 103 with chills was taking Mepron until she left on her trip, took Bactrim one tab on Wednesday laryngitis no sore throat in ED she had fever to 101.3 cxray clear started on cefepime/zithromax prednisone and nebs fevers-?pneumonia, doubt pcp as she was taking mepron until one week ago but will check ldh and chest ct and fungitell, ?sinusitis-check maxillary sinus xray ?viral syndrome- she has laryngitis aids by tckyle history of anal cancer, s/p chemo, port out, didnot fl/u for repeat colonoscopy 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 history of esbl klerb UTI in the past-ua negative, has had multiple negative urine cultures since check ldh nasopharyngeal swab legionella urinary antigen chest ct maxillary sinus xray pulmonary evaluaton continue biktarvy switch to ceftriaxone/zithromax continue mepron Problem List - Problems (1) Fever Code(s): R50.9 - FEVER, UNSPECIFIED Qualifiers: Fever type: unspecified Qualified Code(s): R50.9 - Fever, unspecified (2) AIDS (acquired immunodeficiency syndrome), CD4 <=200 Code(s): B20 - HUMAN IMMUNODEFICIENCY VIRUS [HIV] DISEASE (3) Anal cancer Code(s): C21.0 - MALIGNANT NEOPLASM OF ANUS, UNSPECIFIED
[2019-03-13] MEDS ORDERED: CEFEPIME HCL/D5W 1 GM/50 ML BAG IVPB SCH (10:00)
[2019-03-13] MEDS ORDERED: ERGOCALCIFEROL (VIT D2) 50,000 UNIT (1.25 MG) CAPSULE PO SCH (10:00)
[2019-03-13] MEDS ORDERED: TIOTROPIUM BROMIDE 2.5 MCG (SPIRIVA) RESPIMAT INHALER IH SCH (10:00)
[2019-03-13] MEDS ORDERED: CEFEPIME 1 GM in DEXTROSE 5%-WATER 100 ML IVPB SCH (10:00)
[2019-03-13] MEDS ORDERED: SULFAMETHOXAZOLE/TRIMETHOPRIM 800MG/160MG D.S. TABLET PO SCH (10:00)
--- NOTE | 2019-03-13 11:07 | CONS ---
INFECTIOUS DISEASE CONSULTATION DATE OF CONSULTATION: DATE OF DICTATION: 03/13/2019 HISTORY: This is a 63-year-old female who I know well from the [facility]. She has stable HIV and has recently completed treatment for anal cancer. CD4 recently was under 200 after completing chemotherapy. She was on Biktarvy and Mepron as she did not tolerate Bactrim. I saw her last in February at which time she had her port removed, and she was scheduled for a follow up colonoscopy. She did not attend the follow up colonoscopy. She went at the end of February on the to visit her brother in [place]. Around the same time, her daughter had a stomach bug. This past after she had been in [place] for about a week, she started having face pressure and thought she was getting a sinus infection. She started losing her voice. On Wednesday, these symptoms continued. On Wednesday, she started having fevers, and on Wednesday she called our office from [place]. She spoke to Dr. Alfaro who advised medical evaluation, so she elected to come back to [place]. She has not had any vomiting. She has not had any diarrhea, no dysuria. She had a cough that started last night. She feels short of breath. She had a fever to 103 she reports while in [place]. She was taking Mepron until she left on her trip and took Bactrim 1 tablet on Wednesday. She does note she has laryngitis but no sore throat. In the ER, she had a fever to 101.3. Chest x-ray was clear. She was started on cefepime, Zithromax, prednisone, and nebulizers. PAST MEDICAL HISTORY: Notable for a history of HIV. Has been stable for many years. She has a history of COPD. 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 She has had hemolytic anemia in 2011. 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 She is hepatitis C positive, viral load negative. She has a history of acute renal failure many years ago that resolved. She has had chronic lymphadenopathy. Multiple biopsies have been negative. She has a history of an abdominal hernia as well in the past. PAST SURGICAL HISTORY: Notable for ectopic in 1986. She had a tubal ligation. She has had a cholecystectomy. She has had a tonsillectomy, a left lung biopsy, and now she has this diagnosis of anal cancer for which she has had chemotherapy and radiation. MEDICATIONS: Her medications as an outpatient include: 1. Valtrex. 2. Spiriva. 3. Vitamin D. 4. Biktarvy. 5. Ventolin inhaler. 6. She was on Mepron, which she self-discontinued. SOCIAL HISTORY: She is a form alcohol substance user. Has not used in years. She no longer smokes. She lives with her daughter. REVIEW OF SYSTEMS: She notes she has a cough that started yesterday. She has no abdominal pain or chest pain. She does still complain of facial discomfort. She has no sore throat. She notes she has lost her voice. PHYSICAL EXAMINATION: Vital Signs: She is afebrile. Temperature is 98.4, maximum temperature is 101.3, pulse is 98, blood pressure 107/75, respiratory rate is 20. HEENT: She is normocephalic. Her eyes are anicteric. She has no thrush or pharyngitis. She has no tonsillar exudates or tonsillar erythema. Neck: Supple. Lungs: Currently clear. She just finished a treatment. Heart: Regular rate and rhythm. Abdomen: Soft. She has a soft, reducible hernia. Extremities: Without edema. LABORATORIES: Notable for white count of 6.2, hemoglobin 9.5, platelets are 63,000. She has chronic thrombocytopenia. Her BUN 11, creatinine 0.9, glucose 143. Liver function tests are normal. Her most recent T cells were done in February. Viral load was undetectable. Her CD4 count was 146. She had a QuantiFeron done at the same time, and her QuantiFeron was negative. In summary, this is a 63-year-old woman with AIDS by T cells admitted with fever, possible pneumonia. I doubt PCP as she was taking Mepron until 1 week ago, but we will check an LDH and chest CT and Fungitell, possible sinusitis, which had maxillary sinus x-ray, possible viral syndrome as she has laryngitis. She has a history of anal cancer. She did have follow up for repeat colonoscopy. History of liver cirrhosis with chronic thrombocytopenia. 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 History of ESBL, Klebsiella in the urine in the past. Current UA is negative. She has had multiple negative urine cultures since that time. I would check an LDH, nasal pharyngeal swab for viral PCR, Legionella urinary antigen, chest CT, maxillary sinus x-ray, pulmonary evaluation. Would continue Biktarvy. Switch to ceftriaxone and Zithromax with resumed Mepron and just stop the Bactrim with further recommendations to follow. NOEL SINGH M.D. [id number]
[2019-03-13] MEDS ORDERED: PT OWN MED DRAWER 7, Y5N ONE ×2 (11:50→20:51)
[2019-03-13] MEDS ORDERED: DEXTROSE 5%-WATER - 50 ML IVPB ONE (11:50)
[2019-03-13] MEDS ORDERED: cefTRIAXone SODIUM 1 GM VIAL ONE (11:50)
--- NOTE | 2019-03-13 11:50 | EKG ---
Test Reason : Blood Pressure : / mmHG Vent. Rate : 126 BPM Atrial Rate : 126 BPM P-R Int : 152 ms QRS Dur : 096 ms QT Int : 302 ms P-R-T Axes : 047 -76 069 degrees QTc Int : 437 ms SINUS TACHYCARDIA INCOMPLETE RIGHT BUNDLE BRANCH BLOCK LEFT ANTERIOR FASCICULAR BLOCK ANTERIOR INFARCT , AGE UNDETERMINED ABNORMAL ECG WHEN COMPARED WITH ECG OF 24-OCT-2018 14:50, VENT. RATE HAS INCREASED BY 51 BPM Confirmed by MARILEE QUISPE MD ([id number]) on 03/13/2019 11:50:21 AM Referred By: Confirmed By:MARILEE QUISPE MD
[2019-03-13] MEDS: CEFTRIAXONE 1 GM in DEXTROSE 5%-WATER - 50 ML IVPB SCH (12:55)
[2019-03-13] MEDS: ATOVAQUONE 750 MG/5 ML (UNIT-DOSE PACKAGING) PO SCH ×2 (12:55→22:57)
[2019-03-13] MEDS: predniSONE 20 MG TABLET (UD) PO SCH (12:58)
[2019-03-13 13:41] VITALS: BMI 20.8
[2019-03-13] MEDS: valACYclovir HCL 500 MG TABLET (FP) PO SCH (15:39)
[2019-03-13] MEDS: BICTEGRAV/EMTRICIT/TENOFOV (BIKTARVY) 50-200-25 MG TABLET PO SCH (15:40)
--- NOTE | 2019-03-13 16:45 | PN ---
Teaching Attending Note Name of Resident: Michael Reece ATTENDING PHYSICIAN STATEMENT I saw and evaluated the patient. I reviewed the resident's note and discussed the case with the resident. I agree with the resident's findings and plan as documented. SUBJECTIVE: Patient is feeling better, no fever today but feeling cold. OBJECTIVE: Vital Signs Temperature 98.1 F 03/13/19 13:33 Pulse Rate 104 H 03/13/19 13:33 Respiratory Rate 20 03/13/19 13:33 Blood Pressure 109/68 03/13/19 13:33 O2 Sat by Pulse Oximetry (%) 99 03/13/19 13:33 GENERAL: The patient is awake, alert, and fully oriented, in no acute distress. HEAD: Normal with no signs of trauma. EYES: PERRL, extraocular movements intact, sclera anicteric, conjunctiva clear. ENT: Ears normal, oropharynx clear without exudates, moist mucous membranes. NECK: Trachea midline, full range of motion, supple. LUNGS: Breath sounds equal, clear to auscultation bilaterally, no wheezes, no crackles, no accessory muscle use. HEART: Regular rate and rhythm, S1, S2 without murmur, rub or gallop. ABDOMEN: Soft, nontender, nondistended, normoactive bowel sounds, no guarding, no rebound, no hepatosplenomegaly, no masses. EXTREMITIES: 2+ pulses, warm, well-perfused, no edema. NEUROLOGICAL: Cranial nerves II through XII grossly intact. Normal speech, gait not observed. PSYCH: Normal mood, normal affect. SKIN: Warm, dry, normal turgor, no rashes or lesions noted CBCD WBC 6.2 K/mm3 (4.0-10.0) 03/13/19 06:19 RBC 2.94 M/mm3 (3.60-5.2) L 03/13/19 06:19 Hgb 9.5 GM/dL (10.7-15.3) L 03/13/19 06:19 Hct 27.8 % (32.4-45.2) L 03/13/19 06:19 MCV 94.8 fl (80-96) 03/13/19 06:19 MCHC 34.2 g/dl (32.0-36.0) 03/13/19 06:19 RDW 15.4 % (11.6-15.6) 03/13/19 06:19 Plt Count 63 K/MM3 (134-434) L 03/13/19 06:19 MPV 10.6 fl (7.5-11.1) 03/13/19 06:19 CMP Sodium 137 mmol/L (136-145) 03/13/19 06:19 Potassium 3.4 mmol/L (3.5-5.1) L 03/13/19 06:19 Chloride 106 mmol/L (98-107) 03/13/19 06:19 Carbon Dioxide 25 mmol/L (21-32) 03/13/19 06:19 Anion Gap 5 MMOL/L (8-16) L 03/13/19 06:19 BUN 11.4 mg/dL (7-18) 03/13/19 06:19 Creatinine 0.9 mg/dL (0.55-1.3) 03/13/19 06:19 Random Glucose 143 mg/dL (74-106) H 03/13/19 06:19 Calcium 7.4 mg/dL (8.5-10.1) L 03/13/19 06:19 Total Bilirubin 1.3 mg/dL (0.2-1) H 03/13/19 06:19 AST 19 U/L (15-37) 03/13/19 06:19 ALT 20 U/L (13-61) 03/13/19 06:19 Alkaline Phosphatase 114 U/L (45-117) 03/13/19 06:19 Total Protein 6.3 g/dl (6.4-8.2) L 03/13/19 06:19 Albumin 2.3 g/dl (3.4-5.0) L 03/13/19 06:19 CARDIAC ENZYMES Troponin I < 0.02 ng/ml (0.00-0.05) 03/13/19 03:25 Current Medications Generic Name Dose Route Start Last Admin Trade Name Freq PRN Reason Stop Dose Admin Acetaminophen 650 mg 03/13/19 05:17 Tylenol - PO Q4H PRN PAIN LEVEL 1-5 OR FEVER Albuterol Sulfate 1 amp 03/13/19 05:17 Ventolin 0.083% Nebulizer Soln - NEB Q4H PRN SHORT OF BREATH/WHEEZING Albuterol/Ipratropium 1 amp 03/13/19 08:00 03/13/19 15:07 Duoneb - NEB 1 amp RQID TERRENCE Administration Atovaquone 750 mg 03/13/19 10:00 03/13/19 12:55 Mepron - PO 750 mg BID TERRENCE Administration Bictegravir/Emtricitabine/Tenofovir 1 each 03/13/19 10:00 03/13/19 15:40 Biktarvy 50-200-25 Mg Tablet PO 1 each DAILY TERRENCE Administration Ergocalciferol 50,000 unit 03/13/19 10:00 03/13/19 15:39 Drisdol - PO 50,000 unit Mo@1000 TERRENCE Administration Azithromycin 500 mg in 250 mls @ 250 mls/hr 03/14/19 04:00 Zithromax 500mg Ivpb (Pre-Docked) IVPB DAILY@0400 TERRENCE Ceftriaxone Sodium 1 gm/ 50 mls @ 100 mls/hr 03/13/19 11:00 03/13/19 12:55 Dextrose IVPB 100 mls/hr DAILY TERRENCE Administration Protocol Oxycodone HCl 10 mg 03/13/19 05:22 Roxicodone - PO Q8H PRN PAIN LEVEL 6-10 Prednisone 60 mg 03/13/19 10:00 03/13/19 12:58 Deltasone - PO 60 mg DAILY TERRENCE Administration Valacyclovir HCl 500 mg 03/13/19 10:00 03/13/19 15:39 Valtrex - PO 500 mg DAILY TERRENCE Administration Home Medications Medication Instructions Recorded Ergocalciferol (Vitamin D2) 50,000 unit PO Q7D 30 Days #4 10/27/18 [Vitamin D2] capsule Oxycodone HCl 10 mg PO TID PRN #90 tablet MDD 3 02/06/19 Albuterol Sulfate Inhaler - 2 inh PO Q6H PRN #1 inhaler 02/07/19 [Ventolin HFA Inhaler -] Bictegrav/Emtricit/Tenofov Ala 1 each PO DAILY #30 tablet 02/07/19 [Biktarvy 50-200-25 mg Tablet] Valacyclovir HCl [Valtrex -] 500 mg PO DAILY #30 tablet 02/07/19 Tiotropium [place] [Spiriva 2 puff IH DAILY #1 mist.inhal 02/10/19 Respimat] Atovaquone 750 mg PO DAILY 03/13/19 CXR: nop infiltrate on cXR ASSESSMENT AND PLAN: Patient is a 63yo female with PMHx of anal cancer ( in remission since June ) HIV on on biktarvy and mepron (did not tolerate bactrim) stable HIV and cd4 recently under 200 after completing Biktarvy , COPD, and sarcoidosis who presents with fever of 101.3 in ED. and cough and chills. Patient was visiting her brother who contracted a stomach bug and felt like she was getting a sinus infection with laryngitis picture. # fever with fever of 101.3 : possible acute bronchitis or early pneumonia jack' t be rulled out: will place the patient on Rocephin and zithromax. As per ID doubt is PCP. On prednisone as well. continue nebs prn, # HIV stable at this time continue home meds mepron, Biktarvy , on vancyclovir continue # Hx of sinusitis-check maxillary sinus xray #viral syndrome- she has laryngitis continue supportive care #Hx of anal cancer, s/p chemo, port out, f/u colonoscopy an outoatient #liver cirrhosis/granulomatous hepatitis/questionable sarcoid #Hx of esbl klerb UTI in the past-ua negative, has had multiple negative urine cultures since follow nasopharyngeal swab , legionella urinary antigen, chest ct, maxillary sinus xray DVT Px; SCds since platelets are low.in 60K
--- NOTE | 2019-03-13 17:00 | PN ---
Physical Exam: SUBJECTIVE: Patient seen and examined at bedside in ED. Pt not wheezing, sob, endorses fecal incontinence. OBJECTIVE: Vital Signs Period Temp Pulse Resp BP Sys/Wade Pulse Ox Last 24 Hr 98.1 F-101.3 F 98-130 17- 104-113/53-97 96-99 GENERAL: The patient is awake, alert, and fully oriented, in no acute distress. HEAD: Normal with no signs of trauma. NECK: supple. LUNGS: Breath sounds equal, clear to auscultation bilaterally, no wheezes, no crackles, no accessory muscle use. HEART: Regular rate and rhythm, S1, S2 without murmur, rub or gallop. ABDOMEN: Soft, nondistended, no guarding, no rebound. EXTREMITIES: warm, well-perfused, no edema. NEUROLOGICAL: Cranial nerves II through XII grossly intact. Normal speech, gait not observed. PSYCH: depressed mood, normal affect. SKIN: Warm, dry Laboratory Results - last 24 hr 03/13/19 03/13/19 03/13/19 03:25 03:25 03:25 WBC 6.5 RBC 3.14 L Hgb 10.2 L Hct 30.2 L MCV 96.2 H MCH 32.3 MCHC 33.6 RDW 15.2 Plt Count 70 L MPV 10.2 Absolute Neuts (auto) 5.0 Total Counted 100 Neutrophils % 76.6 Neutrophils % (Manual) 69.0 Band Neutrophils % 4.0 Lymphocytes % 6.4 L D Lymphocytes % (Manual) 10.0 D Monocytes % 15.5 H Monocytes % (Manual) 13 H Eosinophils % 1.4 Basophils % 0.1 Nucleated RBC % 0 Smudge Cells Few Hypochromia 1+ Platelet Estimate Decreased Platelet Comment No clotting detected PT with INR INR PTT (Actin FS) 30.0 VBG pH POC VBG pCO2 POC VBG pO2 VBG HCO3 VBG O2 Sat (Lilian) VBG Base Excess Sodium Potassium Chloride Carbon Dioxide Anion Gap BUN Creatinine Est GFR (CKD-EPI)AfAm Est GFR (CKD-EPI)NonAf Random Glucose Lactic Acid Calcium Total Bilirubin AST ALT Alkaline Phosphatase LD Total Troponin I < 0.02 Total Protein Albumin Urine Color Urine Appearance Urine pH Ur Specific Sheldon Urine Protein Urine Glucose (UA) Urine Ketones Urine Blood Urine Nitrite Urine Bilirubin Urine Urobilinogen Ur Leukocyte Esterase Urine WBC (Auto) Urine RBC (Auto) Urine Casts (Auto) U Epithel Cells (Auto) Urine Bacteria (Auto) Blood Type Antibody Screen 03/13/19 03/13/19 03/13/19 03:25 03:25 03:25 WBC RBC Hgb Hct MCV MCH MCHC RDW Plt Count MPV Absolute Neuts (auto) Total Counted Neutrophils % Neutrophils % (Manual) Band Neutrophils % Lymphocytes % Lymphocytes % (Manual) Monocytes % Monocytes % (Manual) Eosinophils % Basophils % Nucleated RBC % Smudge Cells Hypochromia Platelet Estimate Platelet Comment PT with INR 16.90 H INR 1.43 H PTT (Actin FS) VBG pH POC VBG pCO2 POC VBG pO2 VBG HCO3 VBG O2 Sat (Lilian) VBG Base Excess Sodium 137 Potassium 3.7 Chloride 107 Carbon Dioxide 23 Anion Gap 7 L BUN 11.2 Creatinine 0.9 Est GFR (CKD-EPI)AfAm 77.77 Est GFR (CKD-EPI)NonAf 67.10 Random Glucose 116 H Lactic Acid 1.3 Calcium 7.5 L Total Bilirubin 1.4 H AST 32 ALT 21 Alkaline Phosphatase 129 H LD Total Troponin I Total Protein 7.0 Albumin 2.4 L Urine Color Urine Appearance Urine pH Ur Specific [place] Urine Protein Urine Glucose (UA) Urine Ketones Urine Blood Urine Nitrite Urine Bilirubin Urine Urobilinogen Ur Leukocyte Esterase Urine WBC (Auto) Urine RBC (Auto) Urine Casts (Auto) U Epithel Cells (Auto) Urine Bacteria (Auto) Blood Type Antibody Screen 03/13/19 03/13/19 03/13/19 03:25 03:25 03:25 WBC RBC Hgb Hct MCV MCH MCHC RDW Plt Count MPV Absolute Neuts (auto) Total Counted Neutrophils % Neutrophils % (Manual) Band Neutrophils % Lymphocytes % Lymphocytes % (Manual) Monocytes % Monocytes % (Manual) Eosinophils % Basophils % Nucleated RBC % Smudge Cells Hypochromia Platelet Estimate Platelet Comment PT with INR INR PTT (Actin FS) VBG pH 7.44 H POC VBG pCO2 30.9 L POC VBG pO2 90.3 H VBG HCO3 20.8 L VBG O2 Sat (Lilian) No Result Required. VBG Base Excess No Result Required. Sodium Potassium Chloride Carbon Dioxide Anion Gap BUN Creatinine Est GFR (CKD-EPI)AfAm Est GFR (CKD-EPI)NonAf Random Glucose Lactic Acid Calcium Total Bilirubin AST ALT Alkaline Phosphatase LD Total Troponin I Total Protein Albumin Urine Color Dk yellow Urine Appearance Clear Urine pH 6.0 Ur Specific Sheldon 1.030 Urine Protein Trace Urine Glucose (UA) Negative Urine Ketones Trace H Urine Blood 1+ H Urine Nitrite Negative Urine Bilirubin 1+ H Urine Urobilinogen 2.0 H Ur Leukocyte Esterase Trace Urine WBC (Auto) 2 Urine RBC (Auto) 5 Urine Casts (Auto) 6 U Epithel Cells (Auto) 4.4 Urine Bacteria (Auto) 83.1 Blood Type A POSITIVE Antibody Screen Negative 03/13/19 03/13/19 06:19 06:19 WBC 6.2 RBC 2.94 L Hgb 9.5 L Hct 27.8 L MCV 94.8 MCH 32.4 MCHC 34.2 RDW 15.4 Plt Count 63 L MPV 10.6 Absolute Neuts (auto) 4.7 Total Counted Neutrophils % 76.2 Neutrophils % (Manual) Band Neutrophils % Lymphocytes % 7.0 L Lymphocytes % (Manual) Monocytes % 15.4 H Monocytes % (Manual) Eosinophils % 1.2 Basophils % 0.2 Nucleated RBC % 0 Smudge Cells Hypochromia Platelet Estimate Platelet Comment PT with INR INR PTT (Actin FS) VBG pH POC VBG pCO2 POC VBG pO2 VBG HCO3 VBG O2 Sat (Lilian) VBG Base Excess Sodium 137 Potassium 3.4 L Chloride 106 Carbon Dioxide 25 Anion Gap 5 L BUN 11.4 Creatinine 0.9 Est GFR (CKD-EPI)AfAm 77.77 Est GFR (CKD-EPI)NonAf 67.10 Random Glucose 143 H Lactic Acid Calcium 7.4 L Total Bilirubin 1.3 H AST 19 ALT 20 Alkaline Phosphatase 114 LD Total 207 Troponin I Total Protein 6.3 L Albumin 2.3 L Urine Color Urine Appearance Urine pH Ur Specific [place] Urine Protein Urine Glucose (UA) Urine Ketones Urine Blood Urine Nitrite Urine Bilirubin Urine Urobilinogen Ur Leukocyte Esterase Urine WBC (Auto) Urine RBC (Auto) Urine Casts (Auto) U Epithel Cells (Auto) Urine Bacteria (Auto) Blood Type Antibody Screen Active Medications Generic Name Dose Route Start Last Admin Trade Name Freq PRN Reason Stop Dose Admin Acetaminophen 650 mg 03/13/19 05:17 Tylenol - PO Q4H PRN PAIN LEVEL 1-5 OR FEVER Albuterol Sulfate 1 amp 03/13/19 05:17 Ventolin 0.083% Nebulizer Soln - NEB Q4H PRN SHORT OF BREATH/WHEEZING Albuterol/Ipratropium 1 amp 03/13/19 08:00 03/13/19 15:07 Duoneb - NEB 1 amp RQID TERRENCE Administration Atovaquone 750 mg 03/13/19 10:00 03/13/19 12:55 Mepron - PO 750 mg BID TERRENCE Administration Bictegravir/Emtricitabine/Tenofovir 1 each 03/13/19 10:00 03/13/19 15:40 Biktarvy 50-200-25 Mg Tablet PO 1 each DAILY TERRENCE Administration Ergocalciferol 50,000 unit 03/13/19 10:00 03/13/19 15:39 Drisdol - PO 50,000 unit Mo@1000 TERRENCE Administration Azithromycin 500 mg in 250 mls @ 250 mls/hr 03/14/19 04:00 Zithromax 500mg Ivpb (Pre-Docked) IVPB DAILY@0400 TERRENCE Ceftriaxone Sodium 1 gm/ 50 mls @ 100 mls/hr 03/13/19 11:00 03/13/19 12:55 Dextrose IVPB 100 mls/hr DAILY TERRENCE Administration Protocol Oxycodone HCl 10 mg 03/13/19 05:22 Roxicodone - PO Q8H PRN PAIN LEVEL 6-10 Prednisone 60 mg 03/13/19 10:00 03/13/19 12:58 Deltasone - PO 60 mg DAILY TERRENCE Administration Valacyclovir HCl 500 mg 03/13/19 10:00 03/13/19 15:39 Valtrex - PO 500 mg DAILY TERRENCE Administration ASSESSMENT/PLAN: Patient is a 63 y/o female with a history of anal cancer ( in remission since June) HIV on HARRT, COPD, and sarcoidosis who presents for fever and cough. #SIRS - 2/2 to ?PNA, viral syndrome, doubt PCP due to normal CXR - pt afebrile - CXR: clear, no infiltrates noted - UA Cx normal but hx of ESBL. - Will continue Ceftriaxone, Azithro and mepron. - Dr Herndon: ordered LDH, fungitell (test to dx aspergillus, PCP, pedro), nasopharyngeal swab, legionella antigen, Chest CT (sarcoidosis and PCP), maxillary sinus xray given hx of sinusitis #HIV - recent Tcell 136, viral lode undetectable - continue Valtrex 500 po daily -c/w biktarvy - CD4 show AIDS - f/u with Dr. Herndon as o/p #thrombocytopenia - chronic, past platelets ~60 - likely 2/2 to recent cancer treatment #chronic low back pain -continue Oxycodone 10 mg TID prn #anal cancer - in remission - follows with Dr. Serrano as an out patient - did not f/u for repeat colonoscopy #COPD - continue duonebs QID and albuterol q4h prn - Q1H - prednisone 60 daily FEN - Regular diet - SCD's dvt ppx Dispo: monitor on med-surg Visit type - Emergency Visit Emergency Visit: Yes ED Registration Date: 03/13/19 Care time: The patient presented to the Emergency Department on the above date and was hospitalized for further evaluation of their emergent condition. - New Patient This patient is new to me today: Yes Date on this admission: 03/13/19 - Critical Care Critical Care patient: No - Discharge Referral Referred to [facility] Med P.C.: No ATTENDING PHYSICIAN STATEMENT I saw and evaluated the patient. I reviewed the resident's note and discussed the case with the resident. I agree with the resident's findings and plan as documented. SUBJECTIVE: OBJECTIVE: ASSESSMENT AND PLAN:
[2019-03-13] MEDS: POTASSIUM CHLORIDE TABS 20 MEQ TABLET.ER (FP) PO SCH (22:37)
[2019-03-14] MEDS: AZITHROMYCIN IVPB 500 MG/250 ML BAG IVPB SCH (03:57)
[2019-03-14] MEDS: ALBUTEROL SO4 2.5/IPRATROPIUM 0.5 INH SOL 3 ML VIAL.NEB. NEB SCH ×4 (07:20→21:35)
[2019-03-14 08:38] LABS: BASO % 0.1 % (0-2.0); HEMATOCRIT 29.4 % (32.4-45.2); HEMOGLOBIN 9.8 GM/dL (10.7-15.3); LYMPH % 12.6 % (8-40); MCH 31.7 pg (25.7-33.7); MCHC 33.5 g/dl (32.0-36.0); MEAN CELL VOLUME 94.7 fl (80-96); MONO % 6.1 % (3.8-10.2); NEUT % 81.2 % (42.8-82.8); PLATELET COUNT 94 K/MM3 (134-434); RDW 15.5 % (11.6-15.6); WHITE BLOOD COUNT 5.5 K/mm3 (4.0-10.0)
[2019-03-14 09:04] LABS: ALBUMIN 2.6 g/dl (3.4-5.0); BILIRUBIN,TOTAL 0.7 mg/dL (0.2-1); BLOOD UREA NITROGEN 17.2 mg/dL (7-18); CALCIUM 8.2 mg/dL (8.5-10.1); POTASSIUM 4.1 mmol/L (3.5-5.1); TOT PROT 7.4 g/dl (6.4-8.2)
[2019-03-14] MEDS ORDERED: PT OWN MED DRAWER 7, Y5N ONE ×2 (10:30→11:49)
[2019-03-14] MEDS ORDERED: cefTRIAXone SODIUM 1 GM VIAL ONE (10:30)
[2019-03-14] MEDS ORDERED: DEXTROSE 5%-WATER - 50 ML IVPB ONE (10:31)
[2019-03-14] MEDS: CEFTRIAXONE 1 GM in DEXTROSE 5%-WATER - 50 ML IVPB SCH (10:37)
[2019-03-14] MEDS: valACYclovir HCL 500 MG TABLET (FP) PO SCH (10:38)
[2019-03-14] MEDS: POTASSIUM CHLORIDE TABS 20 MEQ TABLET.ER (FP) PO SCH ×2 (10:38→21:33)
[2019-03-14] MEDS: predniSONE 20 MG TABLET (UD) PO SCH (10:38)
[2019-03-14] MEDS: BICTEGRAV/EMTRICIT/TENOFOV (BIKTARVY) 50-200-25 MG TABLET PO SCH (10:39)
[2019-03-14] MEDS: ATOVAQUONE 750 MG/5 ML (UNIT-DOSE PACKAGING) PO SCH (10:39)
--- NOTE | 2019-03-14 10:40 | CON.GI ---
Consult - History of Present Illness History of Present Illness: GI CONSULT DICTATED - C/W ABX F/U CULTURES - IF ALL NEGATIVE AND PT IS CLEARED BY ID SHE WILL BE SCHEDULED FOR DIAGNOSTIC COLONOSCOPY ON WEDNESDAY. - TREND CBC Q12 ; REPEAT H/H ORDERED - PPI - WILL F/U - Past Medical History Pulmonary: Yes: Other (Sarcoidosis. Pulmonary aspergilloma.) Gastrointestinal: Yes: Other (Chronic liver disease with biopsy 08/2012 showing stage 3 fibrosis (stage 4 is cirrhosis). ) Hepatobiliary: Yes: Other (Chronic liver disease. prior hep c anitiobdy positive , vl negative, hep b core positive , vl negative) Renal/: Yes: Renal Failure (remote history) ...LMP: 12/19/06 Infectious Disease: Yes: Other (HIV positive. 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 Followed by Drs. Serrano and Tangela. 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 SHE HAS A HISTORY OF SUBSTANCE ABUSE(NOT SURE IF IT WAS ALCOHOL OR OPIATES) - Past Surgical History Past Surgical History: Yes: Cholecystectomy - Alcohol/Substance Use Hx Alcohol Use: No (none x 10 years) - Smoking History Smoking history: Current some day smoker Have you smoked in the past 12 months: No Aproximately how many cigarettes per day: 5 If you are a former smoker, when did you quit?: 1999 - Social History Usual Living Arrangement: With Child ADL: Support Services History of Recent Travel: No Home Medications - Allergies Allergies/Adverse Reactions: Allergies Allergy/AdvReac Type Severity Reaction Status Date / Time piperacillin sodium Allergy Mild Itching Verified 03/13/19 02:04 [From Zosyn] tazobactam sodium Allergy Mild Itching Verified 03/13/19 02:04 [From Zosyn] vancomycin AdvReac Intermediate Difficulty Verified 03/13/19 02:04 Breathing lactose-intolerance AdvReac Unknown Uncoded 03/13/19 02:04 - Home Medications Home Medications: Ambulatory Orders Ergocalciferol (Vitamin D2) [Vitamin D2] 50,000 unit PO Q7D 30 Days #4 capsule 10/27/18 Oxycodone HCl 10 mg PO TID PRN #90 tablet MDD 3 02/06/19 Albuterol Sulfate Inhaler - [Ventolin HFA Inhaler -] 2 inh PO Q6H PRN #1 inhaler 02/07/19 Bictegrav/Emtricit/Tenofov Ala [Biktarvy 50-200-25 mg Tablet] 1 each PO DAILY # 30 tablet 02/07/19 Valacyclovir HCl [Valtrex -] 500 mg PO DAILY #30 tablet 02/07/19 Tiotropium [place] [Spiriva Respimat] 2 puff IH DAILY #1 mist.inhal 02/10/19 Atovaquone 750 mg PO DAILY 03/13/19 Family Disease History - Family Disease History Family Disease History: Heart Disease: Mother (d. [place], HTN, age 68), [place]: Father ( adrenal gland), Other: Son, Daughter Physical Exam-GI Vital Signs: Vital Signs Temperature 97.5 F L 03/14/19 06:19 Pulse Rate 82 03/14/19 06:19 Respiratory Rate 20 03/14/19 06:19 Blood Pressure 115/63 03/14/19 06:19 O2 Sat by Pulse Oximetry (%) 97 03/13/19 21:00 Labs: CBC, BMP 03/14/19 07:51 03/14/19 07:51 INR, PTT INR 1.43 (0.83-1.09) H 03/13/19 03:25
[2019-03-14] MEDS: oxyCODONE HCL 5 MG TABLET PO PRN ×2 (10:53→21:50)
--- NOTE | 2019-03-14 13:44 | PN ---
Physical Exam: SUBJECTIVE: Patient seen and examined at bedside this AM. no acute events overnight. OBJECTIVE: Vital Signs Period Temp Pulse Resp BP Sys/Wade Pulse Ox Last 24 Hr 97.5 F-98 F 78-82 18-20 103-115/63-71 97 GENERAL: The patient is awake, alert, and fully oriented, in no acute distress. HEAD: Normal with no signs of trauma. EYES: PERRL, extraocular movements intact, sclera anicteric, conjunctiva clear. No ptosis. ENT: Ears normal, nares patent, oropharynx clear without exudates, moist mucous membranes. NECK: supple. LUNGS: Breath sounds equal, clear to auscultation bilaterally, no wheezes, no crackles, no accessory muscle use. HEART: Regular rate and rhythm, S1, S2 without murmur, rub or gallop. ABDOMEN: Soft, nontender, nondistended, no guarding, no rebound. EXTREMITIES: warm, well-perfused, no edema. NEUROLOGICAL: Cranial nerves II through XII grossly intact. Normal speech, gait not observed. PSYCH: Normal mood, normal affect. SKIN: Warm, dry, no rashes or lesions noted Laboratory Results - last 24 hr 03/14/19 03/14/19 03/14/19 07:51 07:51 09:50 WBC 5.5 RBC 3.10 L Hgb 9.8 L Hct 29.4 L MCV 94.7 MCH 31.7 MCHC 33.5 RDW 15.5 Plt Count 94 L D MPV 10.0 Absolute Neuts (auto) 4.5 Neutrophils % 81.2 Lymphocytes % 12.6 D Monocytes % 6.1 Eosinophils % 0.0 D Basophils % 0.1 Nucleated RBC % 0 Sodium 139 Potassium 4.1 Chloride 107 Carbon Dioxide 24 Anion Gap 9 BUN 17.2 Creatinine 1.0 Est GFR (CKD-EPI)AfAm 68.47 Est GFR (CKD-EPI)NonAf 59.07 Random Glucose 104 Calcium 8.2 L Total Bilirubin 0.7 AST 20 ALT 20 Alkaline Phosphatase 131 H Total Protein 7.4 Albumin 2.6 L Stool Occult Blood Negative Active Medications Generic Name Dose Route Start Last Admin Trade Name Freq PRN Reason Stop Dose Admin Acetaminophen 650 mg 03/13/19 05:17 Tylenol - PO Q4H PRN PAIN LEVEL 1-5 OR FEVER Albuterol Sulfate 1 amp 03/13/19 05:17 Ventolin 0.083% Nebulizer Soln - NEB Q4H PRN SHORT OF BREATH/WHEEZING Albuterol/Ipratropium 1 amp 03/13/19 08:00 03/14/19 11:25 Duoneb - NEB Not Given RQID KRISTIAN Atovaquone 750 mg 03/13/19 10:00 03/14/19 10:39 Mepron - PO 750 mg BID KRISTIAN Administration Bictegravir/Emtricitabine/Tenofovir 1 each 03/13/19 10:00 03/14/19 10:39 Biktarvy 50-200-25 Mg Tablet PO 1 each DAILY KRISTIAN Administration Ergocalciferol 50,000 unit 03/13/19 10:00 03/13/19 15:39 Drisdol - PO 50,000 unit Mo@1000 KRISTIAN Administration Azithromycin 500 mg in 250 mls @ 250 mls/hr 03/14/19 04:00 03/14/19 03:57 Zithromax 500mg Ivpb (Pre-Docked) IVPB 250 mls/hr DAILY@0400 KRISTIAN Administration Ceftriaxone Sodium 1 gm/ 50 mls @ 100 mls/hr 03/13/19 11:00 03/14/19 10:37 Dextrose IVPB 100 mls/hr DAILY KRISTIAN Administration Protocol Oxycodone HCl 10 mg 03/13/19 05:22 03/14/19 10:53 Roxicodone - PO 10 mg Q8H PRN Administration PAIN LEVEL 6-10 Potassium Chloride 20 meq 03/13/19 22:00 03/14/19 10:38 K-Dur - PO 03/14/19 22:01 20 meq BID KRISTIAN Administration Valacyclovir HCl 500 mg 03/13/19 10:00 03/14/19 10:38 Valtrex - PO 500 mg DAILY KRISTIAN Administration ASSESSMENT/PLAN: Images: CXR: clear, no infiltrates noted CT chest: extensive COPD, lt apical fibrosis and scattered bronchiectasis, w/ little significant change from 07/27. No evidence of PNA, or acute pathology w/ in chest. Hyperaeration and increased interstitial markings diffusely consistent w/ moderate degree of COPD. Fibrotic stranding apical pleural thickening, and cystic changes with KILEY consistent with chronic lung dx scattered. Marked irregular liver, enlarged spleen consistent with liver cirrhosis. Maxillary sinus XR: pending Patient is a 63 y/o female with a history of anal cancer ( in remission since June) HIV on HARRT, COPD, and sarcoidosis who presents for fever and cough. #SIRS - 2/2 to ?PNA, ? viral syndrome, CT chest r/o PCP - pt afebrile - UA Cx normal but hx of ESBL. - Will continue Ceftriaxone, Azithro - Dr Herndon: LDH (207), fungitell (test to dx aspergillus, PCP, pedro) pending, nasopharyngeal swab, legionella antigen, Chest CT results shown above, maxillary sinus xray pending. #HIV - recent Tcell 136, viral lode undetectable - continue mepron for PCP PPx. - continue Valtrex 500 po daily -c/w biktarvy - CD4 show AIDS, repeat CD3/CD4 count is pending. - f/u with Dr. Herndon as o/p #thrombocytopenia - chronic, past platelets ~60 - likely 2/2 to recent cancer treatment - off all AC's #chronic low back pain -continue Oxycodone 10 mg TID prn #anal cancer - in remission - follows with Dr. Serrano as an outpatient - did not f/u for repeat colonoscopy - stool occult negative, pt had large bright red clot passed through anus. - Digital Rectal exam: showed an external hemmorhoid but no internal hemmorhoids palpated, no stool in vault, fecal occult sent out, awaiting GI recs. -Dr. Nicholson- #COPD - continue duonebs QID kristian and albuterol q4h prn - stopped prednisone 60 daily likely just bronchitis, pt not wheezing. FEN - Regular diet - SCD's dvt ppx Dispo: monitor on med-surg Visit type - Emergency Visit Emergency Visit: No - New Patient This patient is new to me today: No - Critical Care Critical Care patient: No - Discharge Referral Referred to [facility] Med P.C.: No ATTENDING PHYSICIAN STATEMENT I saw and evaluated the patient. I reviewed the resident's note and discussed the case with the resident. I agree with the resident's findings and plan as documented. SUBJECTIVE: OBJECTIVE: ASSESSMENT AND PLAN:
--- NOTE | 2019-03-14 13:45 | PN ---
Teaching Attending Note Name of Resident: Michael Reece ATTENDING PHYSICIAN STATEMENT I saw and evaluated the patient. I reviewed the resident's note and discussed the case with the resident. I agree with the resident's findings and plan as documented. SUBJECTIVE: Anxious, tearful regarding episode of BRBPR. No abdominal pain/ nausea/vomiting. No fever/chills. OBJECTIVE: Afebrile, Hemodynamically Stable. Last Vital Signs Temp Pulse Resp BP Pulse Ox 97.5 F L 82 20 115/63 97 03/14/19 06:19 03/14/19 06:19 03/14/19 06:19 03/14/19 06:19 03/13/19 21:00 HEENT - Atramatic, Normocephalic Heart - S1, S2, RRR Lungs - clear to auscultation Abdomen - Soft, non-tender. Bowel Sounds normal. Extremities - no edema, no calf tenderness Laboratory Results - last 24 hr 03/14/19 03/14/19 03/14/19 07:51 07:51 09:50 WBC 5.5 RBC 3.10 L Hgb 9.8 L Hct 29.4 L MCV 94.7 MCH 31.7 MCHC 33.5 RDW 15.5 Plt Count 94 L D MPV 10.0 Absolute Neuts (auto) 4.5 Neutrophils % 81.2 Lymphocytes % 12.6 D Monocytes % 6.1 Eosinophils % 0.0 D Basophils % 0.1 Nucleated RBC % 0 Sodium 139 Potassium 4.1 Chloride 107 Carbon Dioxide 24 Anion Gap 9 BUN 17.2 Creatinine 1.0 Est GFR (CKD-EPI)AfAm 68.47 Est GFR (CKD-EPI)NonAf 59.07 Random Glucose 104 Calcium 8.2 L Total Bilirubin 0.7 AST 20 ALT 20 Alkaline Phosphatase 131 H Total Protein 7.4 Albumin 2.6 L Stool Occult Blood Negative Current Medications Generic Name Dose Route Start Last Admin Trade Name Freq PRN Reason Stop Dose Admin Acetaminophen 650 mg 03/13/19 05:17 Tylenol - PO Q4H PRN PAIN LEVEL 1-5 OR FEVER Albuterol Sulfate 1 amp 03/13/19 05:17 Ventolin 0.083% Nebulizer Soln - NEB Q4H PRN SHORT OF BREATH/WHEEZING Albuterol/Ipratropium 1 amp 03/13/19 08:00 03/14/19 11:25 Duoneb - NEB Not Given RQID TERRENCE Atovaquone 750 mg 03/13/19 10:00 03/14/19 10:39 Mepron - PO 750 mg BID TERRENCE Administration Bictegravir/Emtricitabine/Tenofovir 1 each 03/13/19 10:00 03/14/19 10:39 Biktarvy 50-200-25 Mg Tablet PO 1 each DAILY TERRENCE Administration Ergocalciferol 50,000 unit 03/13/19 10:00 03/13/19 15:39 Drisdol - PO 50,000 unit Mo@1000 TERRENCE Administration Azithromycin 500 mg in 250 mls @ 250 mls/hr 03/14/19 04:00 03/14/19 03:57 Zithromax 500mg Ivpb (Pre-Docked) IVPB 250 mls/hr DAILY@0400 TERRENCE Administration Ceftriaxone Sodium 1 gm/ 50 mls @ 100 mls/hr 03/13/19 11:00 03/14/19 10:37 Dextrose IVPB 100 mls/hr DAILY TERRENCE Administration Protocol Oxycodone HCl 10 mg 03/13/19 05:22 03/14/19 10:53 Roxicodone - PO 10 mg Q8H PRN Administration PAIN LEVEL 6-10 Potassium Chloride 20 meq 03/13/19 22:00 03/14/19 10:38 K-Dur - PO 03/14/19 22:01 20 meq BID TERRENCE Administration Valacyclovir HCl 500 mg 03/13/19 10:00 03/14/19 10:38 Valtrex - PO 500 mg DAILY TERRENCE Administration Home Medications Medication Instructions Recorded Ergocalciferol (Vitamin D2) 50,000 unit PO Q7D 30 Days #4 10/27/18 [Vitamin D2] capsule Oxycodone HCl 10 mg PO TID PRN #90 tablet MDD 3 02/06/19 Albuterol Sulfate Inhaler - 2 inh PO Q6H PRN #1 inhaler 02/07/19 [Ventolin HFA Inhaler -] Bictegrav/Emtricit/Tenofov Ala 1 each PO DAILY #30 tablet 02/07/19 [Biktarvy 50-200-25 mg Tablet] Valacyclovir HCl [Valtrex -] 500 mg PO DAILY #30 tablet 02/07/19 Tiotropium [place] [Spiriva 2 puff IH DAILY #1 mist.inhal 02/10/19 Respimat] Atovaquone 750 mg PO DAILY 03/13/19 ASSESSMENT AND PLAN: 63 year old female with history of AIDS (on HAART/Mepron), Anal Cancer s/p RTx and CTx, COPD, Sarcoidosis, presented with URTI symptoms, fevers, chills. 1. Acute Laryngitis, possible Sinusitis - treated with Ceftriaxone/Azithromycin. CXR - no infiltrate CT Chest - emphysematous changes, L apical fibrosis, scattered bronchiectasis. Nasopharyngeal swab, legionella urinary Ag pending ID following - continued on HAART and Mepron No evidence of acute bronchitis - will discontinue Prednisone. 2. BRBPR this AM, seen by nurse, who reports clots. Hx Anal Ca s/p RTx and CTx. GI consult for further evaluation. Monitor H/H. 3. HIV - Continue HAART, Mepron, Vancyclovir. ID following. 3. Liver Cirrhosis sec to Hep C - Stable, no evidence of decompensation or portal HTN. 4. Thrombocytopenia - sec to Liver Cirrhosis. 5. Hx ESBL UTI in the past - no evidence of UTI currently. Isolation precautions. DVT Px - SCDs. Heparin held due to Thrombocytopneia and BRBPR.
--- NOTE | 2019-03-14 15:21 | PN ---
Progress Note (short form) - Note Progress Note: no further fevers not sob today prednisone stopped episode of BRBPR- she is very anxious about this seen by GI still with hoarse voice Vital Signs Period Temp Pulse Resp BP Sys/Wade Pulse Ox Last 24 Hr 97.5 F-98.7 F 78-82 18-20 98-115/60-71 97 cor-rrr lungs clear abd soft,nt ext no edema CBC, BMP 03/14/19 07:51 03/14/19 07:51 Microbiology 03/13/19 03:25 Urine - Urine Clean Catch Urine Culture - Final Normal Urogenital Lacy 03/13/19 03:25 Blood - Peripheral Venous Blood Culture - Preliminary NO GROWTH OBTAINED AFTER 24 HOURS, INCUBATION TO CONTINUE FOR 4 DAYS. 03/13/19 03:25 Blood - Peripheral Venous Blood Culture - Preliminary NO GROWTH OBTAINED AFTER 24 HOURS, INCUBATION TO CONTINUE FOR 4 DAYS. a/p fevers-?pneumonia, doubt pcp as she was taking mepron until one week ago but will check ldh and chest ct and fungitell, ?sinusitis-check maxillary sinus xray ?viral syndrome- she has laryngitis aids by tcells history of anal cancer, s/p chemo, port out, didnot fl/u for repeat colonoscopy - now with BRBPR_ gi consult pending 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 history of esbl kleb UTI in the past-ua negative, has had multiple negative urine cultures since ldh-normal nasopharyngeal swab pending legionella urinary antigen-resend chest ct-no acute changes maxillary sinus xray-pending continue biktarvy continue ceftriaxone/zithromax day #2 continue mepron switch to 1500 mg daily- for pcp prophylaxis Problem List - Problems (1) Fever Code(s): R50.9 - FEVER, UNSPECIFIED Qualifiers: Fever type: unspecified Qualified Code(s): R50.9 - Fever, unspecified (2) AIDS (acquired immunodeficiency syndrome), CD4 <=200 Code(s): B20 - HUMAN IMMUNODEFICIENCY VIRUS [HIV] DISEASE (3) Anal cancer Code(s): C21.0 - MALIGNANT NEOPLASM OF ANUS, UNSPECIFIED
--- NOTE | 2019-03-14 20:08 | CONS ---
DATE OF CONSULTATION: DATE OF DICTATION: 03/14/2019 GASTROINTESTINAL CONSULTATION HISTORY OF PRESENT ILLNESS: The patient is a 63-year-old female, past medical history of anal cancer in remission since June. At the time she had chemotherapy as well as radiation therapy, also with a history of HIV on HAART therapy, COPD, sarcoidosis who presents to the hospital with complaints of fever and cough. Apparently she had a temperature of 102 while she was at home. She took Tylenol and the fever went down. However, when she spiked another temperature she was prompted to come to the emergency room. In addition she had a productive cough. Today her most significant complaint is an episode of hematochezia while she was having a bowel movement. She denies any melena, any nausea or vomiting, abdominal pain or hematemesis. Last colonoscopy was done again in June last year. PAST MEDICAL AND SURGICAL HISTORY: As listed in the HPI with the addition of cholecystectomy, ectopic , and biopsies. SOCIAL HISTORY: Quit smoking 2012. Denies alcohol use. HOME MEDICATIONS: Reviewed. REVIEW OF SYSTEMS: As per the HPI. There is no history of any syncope, dizziness. ALLERGIES: ZOSYN and a reaction to VANCOMYCIN. And she is also LACTOSE intolerant. PHYSICAL EXAMINATION: VITAL SIGNS: Temperature 98, pulse 80, respiratory rate 12, blood pressure 98/60, pulse oximetry 97% on room air. GENERAL: In no acute distress. HEENT: Anicteric sclerae. CARDIOVASCULAR: S1, S2, regular rate and rhythm. LUNGS: Bilaterally coarse without wheezes, rales, or rhonchi. ABDOMEN: Soft, nontender. EXTREMITIES: No edema. LABORATORY: White blood cell count 5.5, hemoglobin and hematocrit 9.8/29. On admission her hemoglobin was 10.2/30. MCV 94, platelet count 70 on admission, currently 94. INR 1.4. Sodium 139, potassium 4.1, BUN/creatinine 17/1, lactic acid 1.3, AST 20, ALT 20, alkaline phosphatase 131. Urine: 1+ bilirubin. Stool for occult blood was negative on the . CD4 count 79. Cultures are pending. She had a CT scan of the chest on the which revealed extensive COPD, left apical fibrosis and scattered bronchiectasis with little significant change in 2018. No evidence of pneumonia or pathology in the chest. IMPRESSION: Human immunodeficiency virus with an underlying infectious process now complicated by an episode of hematochezia in the setting of thrombocytopenia and previous history of anal cancer. She may have recurrence of her malignancy or may have radiation proctitis. RECOMMENDATION: Continue her on antibiotics. Once she is cleared from any potential infectious process and she is optimized, she should be scheduled for a diagnostic colonoscopy, or at least a flexible sigmoidoscopy. This can probably be done on if cleared by infectious disease. For now continue her diet of full liquids, monitor for bleeding, repeat hemoglobin and hematocrit later tonight, keep hemoglobin above 9, and plan for diagnostic colonoscopy on provided she does not develop fever or other signs of active infection. Serial CBC q.12. Would start her also on Protonix 40 mg p.o. daily for history of cirrhosis and continue her on antibiotics as per infectious disease. DO PARTH EVANS/[id number]
[2019-03-14 21:13] LABS: HEMATOCRIT 26.8 % (32.4-45.2); LYMPH % 7.2 % (8-40); MCH 31.8 pg (25.7-33.7); MCHC 33.6 g/dl (32.0-36.0); MEAN CELL VOLUME 94.7 fl (80-96); MEAN PLT VOLUME 10.8 fl (7.5-11.1); NEUT % 87.8 % (42.8-82.8); PLATELET COUNT 80 K/MM3 (134-434); RBC 2.83 M/mm3 (3.60-5.2); RDW 15.3 % (11.6-15.6)
[2019-03-15] MEDS: AZITHROMYCIN IVPB 500 MG/250 ML BAG IVPB SCH (03:40)
[2019-03-15] MEDS: ALBUTEROL SO4 2.5/IPRATROPIUM 0.5 INH SOL 3 ML VIAL.NEB. NEB SCH (07:30)
[2019-03-15] MEDS ORDERED: ALBUTEROL SO4 2.5/IPRATROPIUM 0.5 INH SOL 3 ML VIAL.NEB. NEB PRN (08:07)
[2019-03-15] MEDS ORDERED: cefTRIAXone SODIUM 1 GM VIAL ONE (09:32)
[2019-03-15] MEDS ORDERED: DEXTROSE 5%-WATER - 50 ML IVPB ONE (09:32)
[2019-03-15] MEDS: ATOVAQUONE 750 MG/5 ML (UNIT-DOSE PACKAGING) PO SCH (09:38)
[2019-03-15] MEDS: BICTEGRAV/EMTRICIT/TENOFOV (BIKTARVY) 50-200-25 MG TABLET PO SCH (09:38)
[2019-03-15] MEDS: valACYclovir HCL 500 MG TABLET (FP) PO SCH (09:38)
[2019-03-15] MEDS: CEFTRIAXONE 1 GM in DEXTROSE 5%-WATER - 50 ML IVPB SCH (09:38)
[2019-03-15] MEDS: oxyCODONE HCL 5 MG TABLET PO PRN (09:41)
[2019-03-15] MEDS ORDERED: POLYETHYLENE GLYCOL 3350 255 GM BTL PO ONE (11:00)
--- NOTE | 2019-03-15 13:20 | PN ---
Progress Note (short form) - Note Progress Note: on clears, for colonscopy per patient feels well no further fevers not sob off steroids Vital Signs Period Temp Pulse Resp BP Sys/Wade Pulse Ox Last 24 Hr 97.7 F-98.1 F 77-81 18-20 94-127/56-67 98 cor-rrr lungs clear abd soft,nt ext no edema CBC, BMP 03/14/19 20:00 03/14/19 07:51 cd4 79 Microbiology 03/14/19 17:00 Urine For Antigen Detection Legionella Antigen - Final- negative 03/14/19 17:00 Urine For Antigen Detection Streptococcus pneumoniae Antigen (M - Final-negative 03/14/19 15:00 Nasopharyngeal Swab Respiratory Virus (PCR) - Preliminary 03/13/19 03:25 Blood - Peripheral Venous Blood Culture - Preliminary NO GROWTH OBTAINED AFTER 48 HOURS, INCUBATION TO CONTINUE FOR 3 DAYS. 03/13/19 03:25 Blood - Peripheral Venous Blood Culture - Preliminary NO GROWTH OBTAINED AFTER 48 HOURS, INCUBATION TO CONTINUE FOR 3 DAYS. 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 history of esbl kleb UTI in the past-ua negative, has had multiple negative urine cultures since ldh-normal nasopharyngeal swab pending legionella urinary antigen-resend chest ct-no acute changes maxillary sinus xray-pending continue biktarvy d/c zithromax, continue ceftriaxone continue mepron switch to 1500 mg daily- for pcp prophylaxis Problem List - Problems (1) Fever Code(s): R50.9 - FEVER, UNSPECIFIED Qualifiers: Fever type: unspecified Qualified Code(s): R50.9 - Fever, unspecified (2) AIDS (acquired immunodeficiency syndrome), CD4 <=200 Code(s): B20 - HUMAN IMMUNODEFICIENCY VIRUS [HIV] DISEASE (3) Anal cancer Code(s): C21.0 - MALIGNANT NEOPLASM OF ANUS, UNSPECIFIED
--- NOTE | 2019-03-15 14:49 | PN ---
Teaching Attending Note Name of Resident: Michael Reece ATTENDING PHYSICIAN STATEMENT I saw and evaluated the patient. I reviewed the resident's note and discussed the case with the resident. I agree with the resident's findings and plan as documented. 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 ASSESSMENT AND PLAN:63 year old female with history of AIDS (on HAART/Mepron), Anal Cancer s/p RTx and CTx, COPD, Sarcoidosis, presented with URTI symptoms, fevers, chills Problem List - Problems (1) URTI (acute upper respiratory infection) Assessment/Plan: Most likely Viral URTI evaluated by ID Will F/u recommendation DC Z pack cont Ceftriaxone Code(s): J06.9 - ACUTE UPPER RESPIRATORY INFECTION, UNSPECIFIED (2) AIDS (acquired immunodeficiency syndrome), CD4 <=200 Assessment/Plan: on Mepron for PCP [facility] normal Code(s): B20 - HUMAN IMMUNODEFICIENCY VIRUS [HIV] DISEASE (3) Hematochezia Assessment/Plan: H/O CA anal canal on Chemo and RT will F/U GI recommendation colonoscopy in am Code(s): K92.1 - MELENA (4) Anal cancer Assessment/Plan: s/p Rt and chemo no surgey was performed last RT was in Jun 2018 Code(s): C21.0 - MALIGNANT NEOPLASM OF ANUS, UNSPECIFIED
--- NOTE | 2019-03-15 17:20 | PN ---
Physical Exam: SUBJECTIVE: Patient seen and examined at bedside this AM. No acute events overnight. OBJECTIVE: Vital Signs Period Temp Pulse Resp BP Sys/Wade Pulse Ox Last 24 Hr 97.7 F-97.8 F 77-81 18-20 94-127/56-67 98 GENERAL: The patient is awake, alert, and fully oriented, in no acute distress. HEAD: Normal with no signs of trauma. EYES: PERRL, extraocular movements intact, sclera anicteric, conjunctiva clear. No ptosis. ENT: Ears normal, nares patent, oropharynx clear without exudates, moist mucous membranes. NECK: Trachea midline, full range of motion, supple. LUNGS: Breath sounds equal, clear to auscultation bilaterally, no wheezes, no crackles, no accessory muscle use. HEART: Regular rate and rhythm, S1, S2 without murmur, rub or gallop. ABDOMEN: Soft, nontender, nondistended, no guarding, no rebound. EXTREMITIES: warm, well-perfused, no edema. NEUROLOGICAL: Cranial nerves II through XII grossly intact. Normal speech, gait not observed. PSYCH: very pleasant woman, Normal mood, normal affect. SKIN: Warm, dry, no rashes or lesions noted Laboratory Results - last 24 hr 03/14/19 20:00 WBC 4.0 RBC 2.83 L Hgb 9.0 L Hct 26.8 L MCV 94.7 MCH 31.8 MCHC 33.6 RDW 15.3 Plt Count 80 L MPV 10.8 Absolute Neuts (auto) 3.5 Neutrophils % 87.8 H Lymphocytes % 7.2 L D Monocytes % 5.0 Eosinophils % 0.0 Basophils % 0.0 Nucleated RBC % 0 Active Medications Generic Name Dose Route Start Last Admin Trade Name Freq PRN Reason Stop Dose Admin Acetaminophen 650 mg 03/13/19 05:17 Tylenol - PO Q4H PRN PAIN LEVEL 1-5 OR FEVER Albuterol Sulfate 1 amp 03/13/19 05:17 Ventolin 0.083% Nebulizer Soln - NEB Q4H PRN SHORT OF BREATH/WHEEZING Albuterol/Ipratropium 1 amp 03/15/19 08:11 Duoneb - NEB Q6H PRN EXACABERATION Atovaquone 1,500 mg 03/15/19 08:00 03/15/19 09:38 Mepron - PO 1,500 mg DAILY@0800 TERRENCE Administration Bictegravir/Emtricitabine/Tenofovir 1 each 03/13/19 10:00 03/15/19 09:38 Biktarvy 50-200-25 Mg Tablet PO 1 each DAILY TERRENCE Administration Ergocalciferol 50,000 unit 03/13/19 10:00 03/13/19 15:39 Drisdol - PO 50,000 unit Mo@1000 TERRENCE Administration Ceftriaxone Sodium 1 gm/ 50 mls @ 100 mls/hr 03/13/19 11:00 03/15/19 09:38 Dextrose IVPB 100 mls/hr DAILY TERRENCE Administration Protocol Oxycodone HCl 10 mg 03/13/19 05:22 03/15/19 09:41 Roxicodone - PO 10 mg Q8H PRN Administration PAIN LEVEL 6-10 Sodium Phosphate 133 ml 03/16/19 10:00 Fleet Adult Rectal Enema - KS 03/16/19 10:01 ONCE ONE Valacyclovir HCl 500 mg 03/13/19 10:00 03/15/19 09:38 Valtrex - PO 500 mg DAILY TERRENCE Administration ASSESSMENT/PLAN: Images: CXR: clear, no infiltrates noted CT chest: extensive COPD, lt apical fibrosis and scattered bronchiectasis, w/ little significant change from 07/27. No evidence of PNA, or acute pathology w/ in chest. Hyperaeration and increased interstitial markings diffusely consistent w/ moderate degree of COPD. Fibrotic stranding apical pleural thickening, and cystic changes with KILEY consistent with chronic lung dx scattered. Marked irregular liver, enlarged spleen consistent with liver cirrhosis. Maxillary sinus XR: pending Patient is a 63 y/o female with a history of anal cancer ( in remission since June) HIV on HARRT, COPD, and sarcoidosis who presents for fever and cough. #SIRS - 2/2 to ?PNA, ? viral syndrome, CT chest r/o PCP - pt afebrile - Will continue Ceftriaxone, d/c Zana - Dr Herndon: [facility] (207), fungitell (test to dx aspergillus, PCP, pedro) pending, nasopharyngeal swab, legionella antigen negative, strep PNA negative, maxillary sinus xray pending. #HIV - recent CD4 cell 79 - continue mepron 1500MG for PCP PPx. - continue Valtrex 500 po daily -c/w biktarvy - f/u with Dr. Herndon as o/p #thrombocytopenia - chronic, past platelets ~60 - likely 2/2 to recent cancer treatment - off all AC's #chronic low back pain -continue Oxycodone 10 mg TID prn #anal cancer - in remission - follows with Dr. Serrano as an outpatient - stool occult negative -Dr. Nicholson- colonoscopy in AM on npo after midnight. #COPD - duonebs changed to QID PRN due to agitation, c/w albuterol q4h prn FEN - Regular diet - SCD's dvt ppx Dispo: monitor on med-surg Visit type - Emergency Visit Emergency Visit: Yes ED Registration Date: 03/13/19 Care time: The patient presented to the Emergency Department on the above date and was hospitalized for further evaluation of their emergent condition. - New Patient This patient is new to me today: No - Critical Care Critical Care patient: No - Discharge Referral Referred to [facility] Med P.C.: No ATTENDING PHYSICIAN STATEMENT I saw and evaluated the patient. I reviewed the resident's note and discussed the case with the resident. I agree with the resident's findings and plan as documented. SUBJECTIVE: OBJECTIVE: ASSESSMENT AND PLAN:
--- NOTE | 2019-03-15 18:30 | PN.GI ---
GI Progress Note Subjective: h/o of COPD and sarcoidosis, now afebrile, h/o anal cancer - Objective Vital Signs: Vital Signs Temperature 97.7 F 03/15/19 10:00 Pulse Rate 77 03/15/19 10:00 Respiratory Rate 18 03/15/19 10:00 Blood Pressure 94/56 L 03/15/19 10:00 O2 Sat by Pulse Oximetry (%) 98 03/14/19 22:00 Constitutional: Well Nourished Eyes: Yes: Conjunctiva Clear HENT: Yes: Atraumatic Neck: Yes: Supple Cardiovascular: Yes: Regular Rate and Rhythm Respiratory: Yes: CTA Bilaterally, Poor Air Entry ...Palpate: Yes: Soft. No: Firm/Rigid, Guarding, Hepatomegaly, Mass, Pulsatile Mass, Splenomegaly, Tenderness Labs: CBC, BMP 03/14/19 20:00 03/14/19 07:51 INR, PTT INR 1.43 (0.83-1.09) H 03/13/19 03:25 Problem List - Problems (1) Anal cancer Assessment/Plan: for colonoscopy tomorrow Code(s): C21.0 - MALIGNANT NEOPLASM OF ANUS, UNSPECIFIED (2) AIDS (acquired immunodeficiency syndrome), CD4 <=200 Code(s): B20 - HUMAN IMMUNODEFICIENCY VIRUS [HIV] DISEASE
--- NOTE | 2019-03-16 08:02 | PN ---
Teaching Attending Note Name of Resident: Michael Reece ATTENDING PHYSICIAN STATEMENT I saw and evaluated the patient. I reviewed the resident's note and discussed the case with the resident. I agree with the resident's findings and plan as documented. 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 Problem List - Problems (1) URTI (acute upper respiratory infection) Assessment/Plan: Most likely Viral URTI evaluated by ID Will F/u recommendation DC Z pack cont Ceftriaxone, Respiratory Viral PCR Legionella and strpt -ve negative will discuss with ID to down grade Abx coverage Code(s): J06.9 - ACUTE UPPER RESPIRATORY INFECTION, UNSPECIFIED (2) AIDS (acquired immunodeficiency syndrome), CD4 <=200 Assessment/Plan: on Mepron for PCP [facility] normal Code(s): B20 - HUMAN IMMUNODEFICIENCY VIRUS [HIV] DISEASE (3) Hematochezia Assessment/Plan: No bleeding H/H satble H/O CA anal canal on Chemo and RT will F/U GI recommendation colonoscopy in am Code(s): K92.1 - MELENA (4) Anal cancer Assessment/Plan: s/p Rt and chemo no surgey was performed last RT was in Jun 2018 Code(s): C21.0 - MALIGNANT NEOPLASM OF ANUS, UNSPECIFIED (5) COPD exacerbation Assessment/Plan: cont Spiriva, duoneb add sympicort ansd IV steroids(patient is NPO) Pulmonary consul;t Code(s): J44.1 - CHRONIC OBSTRUCTIVE PULMONARY DISEASE W (ACUTE) EXACERBATION
[2019-03-16] MEDS: ATOVAQUONE 750 MG/5 ML (UNIT-DOSE PACKAGING) PO SCH (08:24)
[2019-03-16 09:21] LABS: BASO % 0.1 % (0-2.0); EOS % 2.2 % (0-4.5); HEMATOCRIT 29.2 % (32.4-45.2); HEMOGLOBIN 9.8 GM/dL (10.7-15.3); LYMPH % 13.8 % (8-40); MCH 31.6 pg (25.7-33.7); MCHC 33.4 g/dl (32.0-36.0); MEAN CELL VOLUME 94.6 fl (80-96); MEAN PLT VOLUME 9.3 fl (7.5-11.1); MONO % 13.5 % (3.8-10.2); NEUT % 70.4 % (42.8-82.8); PLATELET COUNT 94 K/MM3 (134-434); RBC 3.09 M/mm3 (3.60-5.2); RDW 15.3 % (11.6-15.6); WHITE BLOOD COUNT 3.6 K/mm3 (4.0-10.0)
[2019-03-16] MEDS: BICTEGRAV/EMTRICIT/TENOFOV (BIKTARVY) 50-200-25 MG TABLET PO SCH (09:53)
[2019-03-16] MEDS: valACYclovir HCL 500 MG TABLET (FP) PO SCH (09:53)
[2019-03-16] MEDS ORDERED: cefTRIAXone SODIUM 1 GM VIAL ONE (09:54)
[2019-03-16] MEDS ORDERED: DEXTROSE 5%-WATER - 50 ML IVPB ONE (09:54)
[2019-03-16] MEDS: CEFTRIAXONE 1 GM in DEXTROSE 5%-WATER - 50 ML IVPB SCH (09:55)
[2019-03-16] MEDS ORDERED: SODIUM PHOSPHATE/NA BIPHOS 133 ML ENEMA PR ONE (10:00)
[2019-03-16] MEDS: ALBUTEROL SO4 2.5/IPRATROPIUM 0.5 INH SOL 3 ML VIAL.NEB. NEB PRN (11:55)
[2019-03-16 12:49] LABS: ANISOCYTOSIS 1+; MACROCYTOSIS 1+; PLATELET ESTIMATE DECREASED
[2019-03-16] MEDS: methylPREDNISolone NA SUCC 40 MG/1 ML VIAL IVPUSH SCH ×2 (15:00→17:32)
[2019-03-16] MEDS: oxyCODONE HCL 5 MG TABLET PO PRN ×2 (15:00→23:17)
--- NOTE | 2019-03-16 15:26 | PN ---
Progress Note (short form) - Note Progress Note: s/p colonoscopy by dr chang being evaluated for HBO for radiation proctitis? awaiting colonoscopy report Vital Signs Period Temp Pulse Resp BP Sys/Wade Pulse Ox Last 24 Hr 97.8 F-98.8 F 80-107 18-22 107-132/60-76 95-100 cor-rrr lungs- clear abd-soft, nt ext-no edema CBC, BMP 03/16/19 07:30 03/14/19 07:51 Microbiology 03/13/19 03:25 Blood - Peripheral Venous Blood Culture - Preliminary NO GROWTH OBTAINED AFTER 72 HOURS, INCUBATION TO CONTINUE FOR 2 DAYS. 03/13/19 03:25 Blood - Peripheral Venous Blood Culture - Preliminary NO GROWTH OBTAINED AFTER 72 HOURS, INCUBATION TO CONTINUE FOR 2 DAYS. 03/14/19 17:00 Urine For Antigen Detection Legionella Antigen - Final 03/14/19 17:00 Urine For Antigen Detection Streptococcus pneumoniae Antigen (M - Final 03/14/19 15:00 Nasopharyngeal Swab Respiratory Virus (PCR) - Preliminary 03/13/19 03:25 Urine - Urine Clean Catch Urine Culture - Final Normal Urogenital Lacy a/p fevers-?resolved- ?viral syndrome, ?sinusitis- will d/c zithromax now day #4 antibiotics will review sinus xrays aids by tcells-viral load suppressed as outpt, suspect this dip in tcells is due to current febrile illness and that repet counts will improve as oupt- she is adherent with her hiv meds and she will continue on them history of anal cancer, s/p chemo, port out, did not fl/u for repeat colonoscopy - now with BRBPR-for endoscopy in am 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 history of esbl kleb UTI in the past-ua negative, has had multiple negative urine cultures since day #4 rocephin, f/u sinus xray, if negative, d/c rocephin in am after morning dose- have called radiology to read the xray ?radiation proctitis- being evaluated for HBO Problem List - Problems (1) Fever Code(s): R50.9 - FEVER, UNSPECIFIED Qualifiers: Fever type: unspecified Qualified Code(s): R50.9 - Fever, unspecified (2) AIDS (acquired immunodeficiency syndrome), CD4 <=200 Code(s): B20 - HUMAN IMMUNODEFICIENCY VIRUS [HIV] DISEASE (3) Anal cancer Code(s): C21.0 - MALIGNANT NEOPLASM OF ANUS, UNSPECIFIED
[2019-03-16] MEDS: BUDESONIDE/FORMETEROL FUMARATE 80/4.5 mcg INHALER IH SCH ×4 (16:00→23:13)
--- NOTE | 2019-03-16 17:20 | PN ---
Progress Note (short form) - Note Progress Note: colonoscopy--radiation proctitis,prolapsed external hemorrhoid R> anusol cream' hyperbaric oxygen Problem List - Problems (1) Anal cancer Code(s): C21.0 - MALIGNANT NEOPLASM OF ANUS, UNSPECIFIED (2) AIDS (acquired immunodeficiency syndrome), CD4 <=200 Code(s): B20 - HUMAN IMMUNODEFICIENCY VIRUS [HIV] DISEASE
--- NOTE | 2019-03-16 18:33 | PN ---
Physical Exam: SUBJECTIVE: Patient seen and examined at the bedside. No acute events overnight. OBJECTIVE: Vital Signs Period Temp Pulse Resp BP Sys/Wade Pulse Ox Last 24 Hr 97.8 F-98.8 F 80-107 18-22 107-132/60-78 95-100 GENERAL: The patient is awake, alert, and fully oriented, in no acute distress. HEAD: Normal with no signs of trauma. NECK: Trachea midline, full range of motion, supple. LUNGS: Breath sounds equal, slight wheezing so medical Rx given prior to colonoscopy HEART: Regular rate and rhythm, S1, S2 without murmur, rub or gallop. ABDOMEN: Soft, nontender, slightly distended chronically, normoactive bowel sounds, no guarding, no rebound. EXTREMITIES: 2+ pulses, warm, well-perfused, no edema. NEUROLOGICAL: Cranial nerves II through XII grossly intact. Normal speech, gait not observed. PSYCH: Normal mood, normal affect. SKIN: Warm, dry, no rashes or lesions noted Laboratory Results - last 24 hr 03/16/19 07:30 WBC 3.6 L RBC 3.09 L Hgb 9.8 L Hct 29.2 L MCV 94.6 MCH 31.6 MCHC 33.4 RDW 15.3 Plt Count 94 L MPV 9.3 D Absolute Neuts (auto) 2.5 Neutrophils % 70.4 Neutrophils % (Manual) 64.3 Band Neutrophils % 2.0 Lymphocytes % 13.8 D Lymphocytes % (Manual) 14.3 D Monocytes % 13.5 H D Monocytes % (Manual) 13 H Eosinophils % 2.2 D Eosinophils % (Manual) 4.1 Basophils % 0.1 D Basophils % (Manual) 0.0 Myelocytes % (Man) 1 D Promyelocytes % (Man) 0 Blast Cells % (Manual) 0 Nucleated RBC % 0 Metamyelocytes 0 Hypochromia 0 Platelet Estimate Decreased Polychromasia 0 Poikilocytosis 0 Anisocytosis 1+ Microcytosis 0 Macrocytosis 1+ Active Medications Generic Name Dose Route Start Last Admin Trade Name Freq PRN Reason Stop Dose Admin Acetaminophen 650 mg 03/13/19 05:17 Tylenol - PO Q4H PRN PAIN LEVEL 1-5 OR FEVER Albuterol Sulfate 1 amp 03/13/19 05:17 Ventolin 0.083% Nebulizer Soln - NEB Q4H PRN SHORT OF BREATH/WHEEZING Albuterol/Ipratropium 1 amp 03/15/19 08:11 03/16/19 11:55 Duoneb - NEB 1 amp Q6H PRN Administration EXACABERATION Atovaquone 1,500 mg 03/15/19 08:00 03/16/19 08:24 Mepron - PO Not Given DAILY@0800 [facility] Bictegravir/Emtricitabine/Tenofovir 1 each 03/13/19 10:00 03/16/19 09:53 Biktarvy 50-200-25 Mg Tablet PO Not Given DAILY TERRENCE Budesonide/Formoterol Fumarate 2 puff 03/16/19 14:00 03/16/19 16:06 Symbicort 80/4.5mcg - IH Not Given BID [facility] Ergocalciferol 50,000 unit 03/13/19 10:00 03/13/19 15:39 Drisdol - PO 50,000 unit Mo@1000 TERRENCE Administration Ceftriaxone Sodium 1 gm/ 50 mls @ 100 mls/hr 03/13/19 11:00 03/16/19 09:55 Dextrose IVPB 100 mls/hr DAILY [facility] Administration Protocol Methylprednisolone Sodium Succinate 40 mg 03/16/19 13:15 03/16/19 17:32 Solu-Medrol - IVPUSH Not Given Q8H-IV TERRENCE Oxycodone HCl 5 mg 03/16/19 14:45 03/16/19 15:00 Roxicodone - PO 5 mg Q4H PRN Administration PAIN LEVEL 6-10 Valacyclovir HCl 500 mg 03/13/19 10:00 03/16/19 09:53 Valtrex - PO Not Given DAILY [facility] ASSESSMENT/PLAN: Images: CXR: clear, no infiltrates noted CT chest: extensive COPD, lt apical fibrosis and scattered bronchiectasis, w/ little significant change from 07/27. No evidence of PNA, or acute pathology w/ in chest. Hyperaeration and increased interstitial markings diffusely consistent w/ moderate degree of COPD. Fibrotic stranding apical pleural thickening, and cystic changes with KILEY consistent with chronic lung dx scattered. Marked irregular liver, enlarged spleen consistent with liver cirrhosis. Maxillary sinus XR: normal Patient is a 63 y/o female with a history of anal cancer ( in remission since June) HIV on HARRT, COPD, and sarcoidosis who presents for fever and cough. #SIRS - 2/2 to ?PNA, ? viral syndrome, CT chest r/o PCP - pt afebrile - Will continue Ceftriaxone, d/c Azithro - Dr Herndon: [facility] (207), fungitell (test to dx aspergillus, PCP, pedro) pending, nasopharyngeal swab, legionella antigen negative, strep PNA negative, maxillary sinus xray normal - recommends d/c abx and can d/c. #HIV - recent CD4 cell 79 - continue mepron 1500MG for PCP PPx. - continue Valtrex 500 po daily -c/w biktarvy - f/u with Dr. Herndon as o/p #thrombocytopenia - chronic, past platelets ~60 - off all AC's #chronic low back pain -continue Oxycodone 10 mg TID prn #anal cancer - in remission - follows with Dr. Serrano as an outpatient - stool occult negative -Dr. Carias- colonoscopy showed radiation proctitis induced bleeding which was cauterized and no longer bleeding, external hemorrhoids d/c on anurest cream for the hemorrhoid and f/u with wound care for hyperbaric oxygen therapy. #COPD - duonebs changed to QID PRN due to agitation, c/w albuterol q4h prn FEN - Regular diet - SCD's dvt ppx Dispo: pt to be d/c tm when child caregiver private home is placed. Visit type - Emergency Visit Emergency Visit: Yes ED Registration Date: 03/13/19 Care time: The patient presented to the Emergency Department on the above date and was hospitalized for further evaluation of their emergent condition. - New Patient This patient is new to me today: No - Critical Care Critical Care patient: No - Discharge Referral Referred to [facility] Med P.C.: No ATTENDING PHYSICIAN STATEMENT I saw and evaluated the patient. I reviewed the resident's note and discussed the case with the resident. I agree with the resident's findings and plan as documented. SUBJECTIVE: OBJECTIVE: ASSESSMENT AND PLAN:
[2019-03-17] MEDS: methylPREDNISolone NA SUCC 40 MG/1 ML VIAL IVPUSH SCH ×2 (01:30→09:46)
[2019-03-17] MEDS: ALBUTEROL SO4 2.5/IPRATROPIUM 0.5 INH SOL 3 ML VIAL.NEB. NEB PRN (07:44)
--- NOTE | 2019-03-17 07:51 | PN ---
Teaching Attending Note Name of Resident: Michael Reece ATTENDING PHYSICIAN STATEMENT I saw and evaluated the patient. I reviewed the resident's note and discussed the case with the resident. I agree with the resident's findings and plan as documented. SUBJECTIVE: OBJECTIVE: Vital Signs Temperature 98 F 03/17/19 06:00 Pulse Rate 68 03/17/19 06:00 Respiratory Rate 18 03/17/19 06:00 Blood Pressure 113/75 03/17/19 06:00 O2 Sat by Pulse Oximetry (%) 95 03/16/19 21:00 Middle aged F not in distress HEENT: facial asymmetry (chronic) Mm moist, no thrush NECK: No JVd No Bruit CHEST: B/L wheezes CVS: S1S2 R no m/g/r ABD: Non tender Bs + EXT: No edema feet SERVICE ATTENDANT: Non focal Active Medications Acetaminophen (Tylenol -) 650 mg PO Q4H PRN PRN Reason: PAIN LEVEL 1-5 OR FEVER Albuterol Sulfate (Ventolin 0.083% Nebulizer Soln -) 1 amp NEB Q4H PRN PRN Reason: SHORT OF BREATH/WHEEZING Albuterol/Ipratropium (Duoneb -) 1 amp NEB Q6H PRN PRN Reason: EXACABERATION Last Admin: 03/17/19 07:44 Dose: 1 amp Atovaquone (Mepron -) 1,500 mg PO DAILY@0800 [facility] Last Admin: 03/16/19 08:24 Dose: Not Given Bictegravir/Emtricitabine/Tenofovir (Biktarvy 50-200-25 Mg Tablet) 1 each PO DAILY [facility] Last Admin: 03/16/19 09:53 Dose: Not Given Budesonide/Formoterol Fumarate (Symbicort 80/4.5mcg -) 2 puff IH BID [facility] Last Admin: 03/16/19 23:13 Dose: Not Given Ergocalciferol (Drisdol -) 50,000 unit PO Mo@1000 [facility] Last Admin: 03/13/19 15:39 Dose: 50,000 unit Ceftriaxone Sodium 1 gm/ (Dextrose) 50 mls @ 100 mls/hr IVPB DAILY [facility]; Protocol Last Admin: 03/16/19 09:55 Dose: 100 mls/hr Methylprednisolone Sodium Succinate (Solu-Medrol -) 40 mg IVPUSH Q8H-IV [facility] Last Admin: 03/17/19 01:30 Dose: 40 mg Oxycodone HCl (Roxicodone -) 5 mg PO Q4H PRN PRN Reason: PAIN LEVEL 6-10 Last Admin: 03/16/19 23:17 Dose: 5 mg Valacyclovir HCl (Valtrex -) 500 mg PO DAILY [facility] Last Admin: 03/16/19 09:53 Dose: Not Given ASSESSMENT AND PLAN:63 year old female with history of AIDS (on HAART/Mepron), Anal Cancer s/p RTx and CTx, COPD, Sarcoidosis, presented with URTI symptoms, fevers, chills that has improved had an episode of BRBPR that resolved cpolonoscopy shows radiation proctitis Problem List - Problems (1) URTI (acute upper respiratory infection) Assessment/Plan: Most likely Viral URTI evaluated by ID Will F/u recommendation DC Z pack cont Ceftriaxone, Respiratory Viral PCR Legionella and strpt -ve negative will DC abx Code(s): J06.9 - ACUTE UPPER RESPIRATORY INFECTION, UNSPECIFIED (2) AIDS (acquired immunodeficiency syndrome), CD4 <=200 Assessment/Plan: on Mepron for PCP [facility] normal Code(s): B20 - HUMAN IMMUNODEFICIENCY VIRUS [HIV] DISEASE (3) Hematochezia Assessment/Plan: No bleeding H/H satble H/O CA anal canal on Chemo and RT will F/U GI recommendation colonoscopy in am Code(s): K92.1 - MELENA (4) Anal cancer Assessment/Plan: s/p Rt and chemo no surgey was performed last RT was in Jun 2018 Code(s): C21.0 - MALIGNANT NEOPLASM OF ANUS, UNSPECIFIED (5) COPD exacerbation Assessment/Plan: cont Spiriva,sympicort and Po prednisone 30m mg daily for total 5-7 days of steroids.t Code(s): J44.1 - CHRONIC OBSTRUCTIVE PULMONARY DISEASE W (ACUTE) EXACERBATION
[2019-03-17 08:25] VITALS: PULSE 73; TEMP 97.7
[2019-03-17] MEDS ORDERED: DEXTROSE 5%-WATER - 50 ML IVPB ONE (09:37)
[2019-03-17] MEDS ORDERED: cefTRIAXone SODIUM 1 GM VIAL ONE (09:37)
[2019-03-17] MEDS: CEFTRIAXONE 1 GM in DEXTROSE 5%-WATER - 50 ML IVPB SCH (09:46)
[2019-03-17] MEDS: BICTEGRAV/EMTRICIT/TENOFOV (BIKTARVY) 50-200-25 MG TABLET PO SCH (09:46)
[2019-03-17] MEDS: valACYclovir HCL 500 MG TABLET (FP) PO SCH (09:46)
[2019-03-17] MEDS: ATOVAQUONE 750 MG/5 ML (UNIT-DOSE PACKAGING) PO SCH (09:46)
[2019-03-17] MEDS: BUDESONIDE/FORMETEROL FUMARATE 80/4.5 mcg INHALER IH SCH (09:46)
--- NOTE | 2019-03-17 13:59 | CON.PULM ---
Consult Consult Specialty:: PULMONARY Referred by:: Dr Cervantes Reason for Consultation:: COPD - History of Present Illness Chief Complaint: shortness of breath History of Present Illness: 63yo female with h/o COPD, sarcoidosis, anal ca in remission, HIV on ART who was admitted with fevers and shortness of breath. Reports a cough productive of yellow sputum and wheezing. No chest pain or discomfort. Started on antibiotics , IV steroids and inhaled bronchodilators with improvement. Still with a residual nonproductive cough but now afebrile. - History Source History Provided By: Patient, Medical Record Limitations to Obtaining History: No Limitations - Past Medical History Pulmonary: Yes: Other (Sarcoidosis. Pulmonary aspergilloma.) Gastrointestinal: Yes: Other (Chronic liver disease with biopsy 08/2012 showing stage 3 fibrosis (stage 4 is cirrhosis). ) Hepatobiliary: Yes: Other (Chronic liver disease. prior hep c anitiobdy positive , vl negative, hep b core positive , vl negative) Renal/: Yes: Renal Failure (remote history) ...LMP: 12/19/06 Infectious Disease: Yes: Other (HIV positive. 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 Followed by Drs. Serrano and Tangela. 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 SHE HAS A HISTORY OF SUBSTANCE ABUSE(NOT SURE IF IT WAS ALCOHOL OR OPIATES) - Past Surgical History Past Surgical History: Yes: Cholecystectomy - Alcohol/Substance Use Hx Alcohol Use: No (none x 10 years) - Smoking History Smoking history: Current some day smoker Have you smoked in the past 12 months: No Aproximately how many cigarettes per day: 5 If you are a former smoker, when did you quit?: 1999 - Social History Usual Living Arrangement: With Child ADL: Support Services History of Recent Travel: No Home Medications - Allergies Allergies/Adverse Reactions: Allergies Allergy/AdvReac Type Severity Reaction Status Date / Time piperacillin sodium Allergy Mild Itching Verified 03/13/19 02:04 [From Zosyn] tazobactam sodium Allergy Mild Itching Verified 03/13/19 02:04 [From Zosyn] vancomycin AdvReac Intermediate Difficulty Verified 03/13/19 02:04 Breathing lactose-intolerance AdvReac Unknown Uncoded 03/13/19 02:04 - Home Medications Home Medications: Ambulatory Orders Ergocalciferol (Vitamin D2) [Vitamin D2] 50,000 unit PO Q7D 30 Days #4 capsule 10/27/18 Oxycodone HCl 10 mg PO TID PRN #90 tablet MDD 3 02/06/19 Albuterol Sulfate Inhaler - [Ventolin HFA Inhaler -] 2 inh PO Q6H PRN #1 inhaler 02/07/19 Bictegrav/Emtricit/Tenofov Ala [Biktarvy 50-200-25 mg Tablet] 1 each PO DAILY # 30 tablet 02/07/19 Valacyclovir HCl [Valtrex -] 500 mg PO DAILY #30 tablet 02/07/19 Tiotropium [place] [Spiriva Respimat] 2 puff IH DAILY #1 mist.inhal 02/10/19 Atovaquone 750 mg PO DAILY 03/13/19 Budesonide/Formeterol Fumarate [SYMBICORT 80/4.5mcg -] 1 inh PO BID #1 cannister 03/16/19 Prednisone [Deltasone] 20 mg PO DAILY 5 Days #5 tablet 03/16/19 Family Disease History - Family Disease History Family Disease History: Heart Disease: Mother (d. MS, HTN, age 68), CA: Father ( adrenal gland), Other: Son, Daughter Review of Systems - Review of Systems Constitutional: reports: Fever, Malaise, Weakness Eyes: denies: Recent Change in Vision HENT: denies: Nasal Congestion, Throat Pain Neck: denies: Stiffness, Tenderness Cardiovascular: reports: Shortness of Breath. denies: Chest Pain, Palpitations Respiratory: reports: Cough, SOB on Exertion, Wheezing. denies: Hemoptysis Gastrointestinal: denies: Abdominal Pain, Nausea, Vomiting Genitourinary: denies: Dysuria, Hematuria Neurological: denies: Dizziness, Headache Endocrine: denies: Unexplained Weight Loss Physical Exam Vital Sings: Vital Signs Temperature 97.7 F 03/17/19 08:25 Pulse Rate 73 03/17/19 08:25 Respiratory Rate 20 03/17/19 08:25 Blood Pressure 123/74 03/17/19 08:25 O2 Sat by Pulse Oximetry (%) 92 L 03/17/19 08:25 Constitutional: Yes: Calm Eyes: Yes: Conjunctiva Clear, EOM Intact HENT: Yes: Atraumatic, Normocephalic Neck: Yes: Supple, Trachea Midline Cardiovascular: Yes: Regular Rate and Rhythm Respiratory: Yes: Diminished (distant breath sounds) ...Clubbing: No Gastrointestinal: Yes: Normal Bowel Sounds, Soft. No: Tenderness Edema: No Neurological: Yes: Alert, Oriented Labs: CBC, BMP 03/16/19 07:30 03/14/19 07:51 Imaging - Results Chest X-ray: Report Reviewed, Image Reviewed Cat Scan: Report Reviewed, Image Reviewed (KILEY and basilar bronchiectasis) Problem List - Problems (1) COPD exacerbation Code(s): J44.1 - CHRONIC OBSTRUCTIVE PULMONARY DISEASE W (ACUTE) EXACERBATION Assessment/Plan Acute COPD/Bronchiectasis Exacerbation Sarcoidosis HIV h/o Anal Ca - can change steroids to PO prednisone 40mg daily and taper as outpt - inhaled bronchodilators - O2 to keep SpO2 >90% - on empiric antibiotics - outpt PFTs and f/u - DVT prophylaxis Thank you for this consult Ruperto Tiereny MD
--- NOTE | 2019-03-17 14:02 | PN ---
Progress Note (short form) - Note Progress Note: s/p colonoscopy by dr chang radiation proctitis Vital Signs Period Temp Pulse Resp BP Sys/Wade Pulse Ox Last 24 Hr 97.7 F-98.8 F 68-99 18-22 113-124/74-78 92-100 no thrush cor-rrr lungs clear abd soft, nt ext no edema CBC, BMP 03/16/19 07:30 03/14/19 07:51 Microbiology 03/13/19 03:25 Blood - Peripheral Venous Blood Culture - Preliminary NO GROWTH OBTAINED AFTER 96 HOURS, INCUBATION TO CONTINUE FOR 1 DAYS. 03/13/19 03:25 Blood - Peripheral Venous Blood Culture - Preliminary NO GROWTH OBTAINED AFTER 96 HOURS, INCUBATION TO CONTINUE FOR 1 DAYS. 03/14/19 17:00 Urine For Antigen Detection Legionella Antigen - Final 03/14/19 17:00 Urine For Antigen Detection Streptococcus pneumoniae Antigen (M - Final 03/14/19 15:00 Nasopharyngeal Swab Respiratory Virus (PCR) - Preliminary 03/13/19 03:25 Urine - Urine Clean Catch Urine Culture - Final Normal Urogenital Layc a/p fevers-?resolved- ?viral syndrome now day #5 antibiotics-can d/c sinus xray negative aids by tcells-viral load suppressed as outpt, suspect this dip in tcells is due to current febrile illness and that repet counts will improve as oupt- she is adherent with her hiv meds and she will continue on them history of anal cancer, s/p chemo, port out, did not fl/u for repeat colonoscopy - now with BRBPR-for endoscopy in am 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 history of esbl kleb UTI in the past-ua negative, has had multiple negative urine cultures since radiation proctitis- being evaluated for HBO, GI reccd HBO and anusol she can f/u with me in the [facility] Problem List - Problems (1) Fever Code(s): R50.9 - FEVER, UNSPECIFIED Qualifiers: Qualified Code(s): R50.9 - Fever, unspecified (2) AIDS (acquired immunodeficiency syndrome), CD4 <=200 Code(s): B20 - HUMAN IMMUNODEFICIENCY VIRUS [HIV] DISEASE (3) Anal cancer Code(s): C21.0 - MALIGNANT NEOPLASM OF ANUS, UNSPECIFIED
--- NOTE | 2019-03-17 14:15 | DS ---
Physical Exam: SUBJECTIVE: Patient seen and examined at bedside this AM. No acute events overnight. OBJECTIVE: Vital Signs Period Temp Pulse Resp BP Sys/Wade Pulse Ox Last 24 Hr 97.7 F-98.8 F 68-98 18-22 113-123/74-78 92-100 PHYSICAL EXAM GENERAL: The patient is awake, alert, and fully oriented, in no acute distress. HEAD: Normal with no signs of trauma. LUNGS: Breath sounds equal, clear to auscultation bilaterally, no wheezes, no crackles, no accessory muscle use. HEART: Regular rate and rhythm, S1, S2 without murmur, rub or gallop. ABDOMEN: Soft, nontender, slightly chronically distended, normoactive bowel sounds, no guarding, no rebound. EXTREMITIES: warm, well-perfused, no edema. NEUROLOGICAL: Cranial nerves II through XII grossly intact. Normal speech, gait not observed. PSYCH: Normal mood, normal affect. SKIN: Warm, dry, no rashes or lesions noted. LABS HOSPITAL COURSE: Date of Admission:03/13/19 Images: CXR: clear, no infiltrates noted CT chest: extensive COPD, lt apical fibrosis and scattered bronchiectasis, w/ little significant change from 07/27. No evidence of PNA, or acute pathology w/ in chest. Hyperaeration and increased interstitial markings diffusely consistent w/ moderate degree of COPD. Fibrotic stranding apical pleural thickening, and cystic changes with KILEY consistent with chronic lung dx scattered. Marked irregular liver, enlarged spleen consistent with liver cirrhosis. Maxillary sinus XR: normal Patient is a 63 y/o female with a history of anal cancer ( in remission since June) HIV on HARRT, COPD, and sarcoidosis who was admitted for acute COPD exacerbation. She was found to not have PNA but was treated empirically with rochephin, azithro IV and meprol for PCP Ppx. She was seen by her ID doctor ( Dr. Herndon) and she will follow up her HIV management as an outpatient. She will continue her steroid management as outpatient. She had clots bright red blood per rectum and was evaluated by Dr. Carias for colonoscopy which showed radiation proctitis and he cauterized it rendering her no longer bleeding but prescribed anusol cream for her external hemmorhoid. She will follow up with Dr. Wesley as o/p. Date of Discharge: 03/17/19 Minutes to complete discharge: 35 Discharge Summary Reason For Visit: SHORTNESS OF BREATH,SEPSIS Current Active Problems AIDS (acquired immunodeficiency syndrome), CD4 <=200 (Chronic) Anal cancer (Chronic) Anal cancer (Chronic) Condition: Stable - Instructions Diet, Activity, Other Instructions: You were admitted for fever, shortness of breath, and low blood oxygen levels. You were treated with antibiotics for this new worsening of your chronic lung disease. While you were here we had a stomach doctor (Dr. Carias) evaluate you for bleeding in your rectum and they did a colonoscopy which found that you have radiation proctitis (radiation inflammation). That was what caused you to bleed but they stopped it during the procedure. You have since been stable enough to return home. Medications: We have made the following adjustments to your medications: Please START taking Prednisone 20 mg once a day by mouth for 5 days. Please continue all your home medications as prescribed. Follow up with your primary doctor (Dr. Herndon) for your HIV treatment. Follow Up You will need to follow up in the wound care clinic for hyperbaric oxygen therapy. We have made an appointment for you in 1 week. Please use anusol cream for your hemorrhoid. Return to the emergency room if you have any worsening of your current symptoms or: chest pain, shortness of breath, fevers, or chills. Referrals: Beti Herndon MD [Primary Care Provider] - 2 Weeks Yossi Liu DO [Staff Physician] - 1 Week (wound care) Disposition: VNS/HOME HEALTH CARE - Home Medications Comprehensive Discharge Medication List: Ambulatory Orders Ergocalciferol (Vitamin D2) [Vitamin D2] 50,000 unit PO Q7D 30 Days #4 capsule 10/27/18 Oxycodone HCl 10 mg PO TID PRN #90 tablet MDD 3 02/06/19 Albuterol Sulfate Inhaler - [Ventolin HFA Inhaler -] 2 inh PO Q6H PRN #1 inhaler 02/07/19 Bictegrav/Emtricit/Tenofov Ala [Biktarvy 50-200-25 mg Tablet] 1 each PO DAILY # 30 tablet 02/07/19 Valacyclovir HCl [Valtrex -] 500 mg PO DAILY #30 tablet 02/07/19 Tiotropium [place] [Spiriva Respimat] 2 puff IH DAILY #1 mist.inhal 02/10/19 Atovaquone 750 mg PO DAILY 03/13/19 Budesonide/Formeterol Fumarate [SYMBICORT 80/4.5mcg -] 1 inh PO BID #1 cannister 03/16/19 Prednisone [Deltasone] 20 mg PO DAILY 5 Days #5 tablet 03/16/19 This patient is new to me today: No Emergency Visit: Yes ED Registration Date: 03/13/19 Care time: The patient presented to the Emergency Department on the above date and was hospitalized for further evaluation of their emergent condition. Critical Care patient: No - Discharge Referral Referred to [facility] Med P.C.: No ATTENDING PHYSICIAN STATEMENT I saw and evaluated the patient. I reviewed the resident's note and discussed the case with the resident. I agree with the resident's findings and plan as documented. SUBJECTIVE: OBJECTIVE: ASSESSMENT AND PLAN:
[2019-03-17 14:31] VITALS: BP 108/65
== END 2019-03-17 17:35 | disposition home health service (06) | DRG 191 ==
LOC: SUPCPDRO 01:58 → JER 01:58 → JERBED 04:43 → J5S 09:21 → J6S 10:29
PROVIDERS: ADMIT Internal Medicine; ATTEND Internal Medicine
PROC: 0W3P8ZZ Control Bleeding in Gastrointestinal Tract, Via Natural or Artificial Opening Endoscopic (ICD-10-PCS; principal; 2019-03-16 13:30)
DX: J44.1 Chronic obstructive pulmonary disease with (acute) exacerbation (principal); F11.20 Opioid dependence, uncomplicated; B20 Human immunodeficiency virus [HIV] disease; C21.0 Malignant neoplasm of anus, unspecified; K62.5 Hemorrhage of anus and rectum; D86.9 Sarcoidosis, unspecified; G51.0 Bell's palsy; D69.6 Thrombocytopenia, unspecified; M54.5 Low back pain; K74.60 Unspecified cirrhosis of liver; B19.20 Unspecified viral hepatitis C without hepatic coma; J06.9 Acute upper respiratory infection, unspecified; K64.8 Other hemorrhoids; K62.7 Radiation proctitis; J04.0 Acute laryngitis; Z85.048 Personal history of other malignant neoplasm of rectum, rectosigmoid junction, and anus
CPT/HCPCS: 36415; 70210-TC-FY; 71045-TC-FY; 71250-TC; 80053; 81003; 82272; 82803; 83605; 83615; 84484; 85025; 85610; 85730; 86359; 86360; 86850; 86900; 86901; 87040; 87086; 87633; 87899; 93005; 93010; 94640; 99285-25; J0131

== ENCOUNTER → 2019-04-05 | Outpatient (CLI) | payer OTHER | LOC: YHH 11:09 ==

== ENCOUNTER 2019-10-16 09:56 | Day surgery (SDC) | payer OTHER ==
[2019-10-13 13:14] VITALS: BMI 21.8
[2019-10-16 10:40] LABS: BASO % 0.4 % (0-2.0); EOS % 3.3 % (0-4.5); HEMATOCRIT 31.1 % (32.4-45.2); HEMOGLOBIN 10.2 GM/dL (10.7-15.3); LYMPH % 16.3 % (8-40); MCHC 32.9 g/dl (32.0-36.0); MEAN CELL VOLUME 91.1 fl (80-96); MONO % 11.1 % (3.8-10.2); NEUT % 68.9 % (42.8-82.8); PLATELET COUNT 86 K/MM3 (134-434); RBC 3.41 M/mm3 (3.60-5.2); RDW 16.7 % (11.6-15.6); WHITE BLOOD COUNT 3.4 K/mm3 (4.0-10.0)
[2019-10-16 11:10] LABS: ALBUMIN 2.8 g/dl (3.4-5.0); BILIRUBIN,TOTAL 0.9 mg/dL (0.2-1); BLOOD UREA NITROGEN 17.8 mg/dL (7-18); CALCIUM 8.3 mg/dL (8.5-10.1); CREATININE 1.1 mg/dL (0.55-1.3); TOT PROT 7.5 g/dl (6.4-8.2)
[2019-10-16 11:30] LABS: INR 1.21 (0.83-1.09); PROTHROMBIN TIME (PATIENT) 14.3 SEC (9.7-13.0)
[2019-10-16 11:34] LABS: ACTIVATED PTT 38.9 SECONDS (25.2-36.5)
[2019-10-16] MEDS ORDERED: ACETAMINOPHEN 325 MG TABLET (FP) ONE (15:32)
[2019-10-16] MEDS ORDERED: oxyCODONE HCL 10 MG SUSTAINED ACTING TABLET ONE (15:32)
[2019-10-16] MEDS ORDERED: ACETAMINOPHEN 325 MG TABLET (FP) PO ONE (15:36)
[2019-10-16] MEDS ORDERED: oxyCODONE HCL 10 MG SUSTAINED ACTING TABLET PO ONE (15:36)
[2019-10-16 18:01] VITALS: BP 101/57; PULSE 86; TEMP 97.9
--- NOTE | 2019-10-17 16:39 | PATH ---
Surgical Pathology Report Patient Name: ZEB VALIENTE [facility] Rec. #: [id number] /Age/Gender: 1955 (Age: 63) / F Account: [id number] Location: RADIOLOGY INTER Taken: 10/16/2019 Received: 10/16/2019 Reported: 10/17/2019 Physicians: John Ferguson M.D. Burt Garner M.D. Specimen(s) Received LIVER BIOPSY RIGHT LOBE Clinical History 58 year old female with rectal cancer, Sarcoidosis, liver cirrhosis. Now with liver mass Final Diagnosis LIVER MASS, RIGHT LOBE, ULTRASOUND GUIDED CORE BIOPSY: POORLY DIFFERENTIATED SQUAMOUS CELL CARCINOMA. SEE COMMENT. Comment: Immunohistochemical stains performed and interpreted at [facility] show the tumor is positive for AE1/3 and P63, while negative for CK7, CK20, and TTF-1. Histomorphology and immunophenotype support the diagnosis. Tumor shows morphologic overlap with prior rectal carcinoma ([id number]). Suggest clinical and radiologic correlation. Findings discussed with Dr. Garza, 10/17/19. Positive and negative controls (internal if applicable) show appropriate results. Electronically Signed Callie Curtis M.D. Gross Description Received in formalin labeled "right lobe," are 2 zelaya, cylindrical portions of soft tissue measuring 1.0 and 1.7 cm in length and averaging 0.1 cm in diameter. The specimens are submitted in toto in one cassette. /10/16/2019 saudi10/16/2019
== END 2019-10-16 18:00 | disposition home or self-care (01) ==
LOC: JRADIR 09:56
PROVIDERS: ATTEND Internal Medicine Hematology & Oncology
PROC: 0FB13ZX Excision of Right Lobe Liver, Percutaneous Approach, Diagnostic (ICD-10-PCS; principal; 2019-10-16)
DX: C78.7 Secondary malignant neoplasm of liver and intrahepatic bile duct (principal); C20 Malignant neoplasm of rectum; D86.9 Sarcoidosis, unspecified
CPT/HCPCS: 36415; 76942-TC; 80053; 85025; 85610; 85730; 88305-TC; 88341-TC; 88342-TC

== ENCOUNTER 2020-10-20 17:55 | Inpatient (IN) | payer OTHER ==
[2020-10-20] MEDS ORDERED: HYDROmorphone HCL CARPU-JECT 2 MG/1 ML DISP.SYRIN IVPUSH ONE (18:18)
[2020-10-20] MEDS ORDERED: LACTATED RINGERS SOLUTION 1000 ML INFUS.BAG IV ONE ×2 (18:19→20:13)
[2020-10-20] MEDS ORDERED: HYDROmorphone HCl 2 MG/ML VIAL ONE (18:22)
[2020-10-20 18:24] VITALS: BMI 19.2
[2020-10-20 18:52] LABS: VENOUS BASE EXCESS -0.4 mmol/L (-2-2); VENOUS O2 SATURATION 47.3 % (70-80); VENOUS PCO2 38.4 mmHg (38-52); VENOUS PH 7.413 (7.310-7.410)
[2020-10-20 18:54] LABS: BASO % 0.3 % (0-2.0); EOS % 1.7 % (0-4.5); HEMATOCRIT 35.3 % (32.4-45.2); HEMOGLOBIN 11.4 GM/dL (10.7-15.3); MCH 28.6 pg (25.7-33.7); MCHC 32.3 g/dl (32.0-36.0); MEAN CELL VOLUME 88.6 fl (80-96); MEAN PLT VOLUME 10.2 fl (7.5-11.1); MONO % 1.7 % (3.8-10.2); NEUT % 91.3 % (42.8-82.8); PLATELET COUNT 88 K/MM3 (134-434); RBC 3.99 M/mm3 (3.60-5.2); RDW 17.7 % (11.6-15.6); WHITE BLOOD COUNT 4.6 K/mm3 (4.0-10.0)
[2020-10-20 19:02] LABS: PROTHROMBIN TIME (PATIENT) 23.7 SEC (9.7-13.0)
[2020-10-20 19:04] LABS: ACTIVATED PTT 42.8 SECONDS (25.2-36.5)
[2020-10-20 19:18] LABS: POTASSIUM 4.2 mmol/L (3.5-5.1)
[2020-10-20 19:20] LABS: ALBUMIN 2.7 g/dl (3.4-5.0); CALCIUM 8.3 mg/dL (8.5-10.1)
[2020-10-20 19:21] LABS: BLOOD UREA NITROGEN 36.2 mg/dL (7-18)
[2020-10-20 19:24] LABS: CREATININE 2.3 mg/dL (0.55-1.3)
[2020-10-20 19:25] LABS: BILIRUBIN,TOTAL 5.8 mg/dL (0.2-1); TOT PROT 8.6 g/dl (6.4-8.2)
[2020-10-20 19:51] LABS: ANISOCYTOSIS 1+; MACROCYTOSIS 0; PLATELET ESTIMATE DECREASED
[2020-10-20] MEDS ORDERED: ACETAMINOPHEN 1000 MG/100 ML VIAL (NON FORMULARY) IVPB ONE (19:52)
[2020-10-20] MEDS ORDERED: ACETAMINOPHEN INJECTION 100 ML IVPB ONE (19:54)
[2020-10-20] MEDS: NOREPINEPHRINE BITARTRATE 8,000 MCG/500 ML BAG IVPB SCH (22:14)
[2020-10-20] MEDS ORDERED: VASOPRESSIN 40 UNITS in SODIUM CHLORIDE 98 ML IVPB SCH (23:15)
[2020-10-20] MEDS ORDERED: MEROPENEM 1 GM in DEXTROSE 5%-WATER 100 ML IVPB ONE (23:55)
[2020-10-21] MEDS ORDERED: FOLIC ACID INJECTION - 1 MG, THIAMINE HCL 100 MG, MULTIVIT INJECTION ADULT 10 ML in SOD... IVPB ONE (00:08)
[2020-10-21] MEDS: VASOPRESSIN 40 UNITS in SODIUM CHLORIDE 98 ML IVPB SCH ×2 (00:20→09:04)
[2020-10-21 00:59] LABS: EPI CELLS >36 /uL (0-25.1); HYALINE CASTS 22 /uL (0-3.1); URINE APPEARANCE TURBID; URINE BILIRUBIN 3+ (NEGATIVE); URINE COLOR DK YELLOW; URINE GLUCOSE (UA) NEGATIVE (NEGATIVE); URINE KETONE TRACE (NEGATIVE); URINE LEUK ESTERASE NEGATIVE (NEGATIVE); URINE NITRITE POSITIVE (NEGATIVE); URINE PROTEIN 2+ (NEGATIVE); URINE WBC 41 /uL (0-25.8)
[2020-10-21] MEDS ORDERED: HYDROmorphone HCl 2 MG/ML VIAL IVPUSH STA ×2 (03:51→06:25)
[2020-10-21] MEDS ORDERED: ERGOCALCIFEROL (VIT D2) 50,000 UNIT (1.25 MG) CAPSULE PO STA (03:52)
[2020-10-21] MEDS ORDERED: clonazePAM 0.5 MG TABLET PO PRN (04:11)
[2020-10-21] MEDS: DOCUSATE SODIUM 100 MG CAPSULE (FP) PO SCH ×3 (06:36→21:32)
[2020-10-21] MEDS ORDERED: ALBUTEROL SO4 0.083% IH SOL 2.5 MG/3 ML VIAL.NEB. NEB PRN (07:04)
[2020-10-21 07:29] LABS: HEMATOCRIT 34.1 % (32.4-45.2); MCH 28.9 pg (25.7-33.7); MCHC 32.2 g/dl (32.0-36.0); MEAN CELL VOLUME 89.8 fl (80-96); MEAN PLT VOLUME 10.3 fl (7.5-11.1); PLATELET COUNT 97 K/MM3 (134-434); RDW 17.8 % (11.6-15.6); WHITE BLOOD COUNT 14.9 K/mm3 (4.0-10.0)
[2020-10-21 07:37] LABS: POTASSIUM 5.1 mmol/L (3.5-5.1)
[2020-10-21 07:38] LABS: CALCIUM 7.9 mg/dL (8.5-10.1)
[2020-10-21 07:39] LABS: MAGNESIUM 1.8 mg/dL (1.8-2.4)
[2020-10-21 07:42] LABS: CREATININE 2.1 mg/dL (0.55-1.3); PHOSPHOROUS 4.2 mg/dL (2.5-4.9)
[2020-10-21] MEDS ORDERED: LACTATED RINGERS SOLUTION 1,000 ML/1,000 ML INFUS.BAG IV STA (07:53)
[2020-10-21] MEDS ORDERED: MEROPENEM 1 GM in DEXTROSE 5%-WATER 100 ML IVPB SCH ×2 (08:00→22:00)
[2020-10-21] MEDS ORDERED: PT OWN MED DRAWER 7, Y5N ONE ×2 (08:55→09:31)
[2020-10-21] MEDS: BUDESONIDE/FORMETEROL FUMARATE 160/4.5 mcg INHALER IH SCH ×3 (09:02→21:32)
[2020-10-21] MEDS: TIOTROPIUM BROMIDE 2.5 MCG (SPIRIVA) RESPIMAT INHALER IH SCH ×2 (09:02→09:51)
[2020-10-21] MEDS: valACYclovir HCL 500 MG TABLET (FP) PO SCH (09:03)
[2020-10-21] MEDS: ABACAVIR/DOLUTEGRAVIR/LAMIVUDI (TRIUMEQ) TABLET -NF PO SCH (09:03)
[2020-10-21] MEDS: NOREPINEPHRINE BITARTRATE 8,000 MCG/500 ML BAG IVPB SCH ×3 (09:06→21:32)
[2020-10-21] MEDS: ATOVAQUONE 750 MG/5 ML (UNIT-DOSE PACKAGING) PO SCH (09:28)
[2020-10-21] MEDS: FOLIC ACID 1 MG TABLET (FP) PO SCH (09:32)
[2020-10-21] MEDS: POLYETHYLENE GLYCOL 3350 119 GM BTL PO SCH (09:32)
[2020-10-21] MEDS: THIAMINE HCL 200 MG/2 ML VIAL IVPB SCH (09:32)
[2020-10-21] MEDS: LACTULOSE 20 GM/30 ML UDC (FOR ORAL USE ONLY) PO SCH (09:32)
[2020-10-21] MEDS: BUPRENORPHINE/NALOXONE 2 MG/0.5 MG FILM PACKET SL SCH ×2 (09:32→13:16)
[2020-10-21] MEDS ORDERED: ERGOCALCIFEROL (VIT D2) 50,000 UNIT (1.25 MG) CAPSULE PO SCH (10:00)
[2020-10-21] MEDS ORDERED: MEROPENEM 500 MG VIAL (RESTRICTED TO ID) IVPB ONE ×2 (13:23→17:53)
[2020-10-21] MEDS ORDERED: DEXTROSE 5%-WATER 100 ML IVPB ONE ×2 (13:24→17:53)
[2020-10-21] MEDS: HYDROCORTISONE SOD SUCCINATE 100 MG/2 ML VIAL IVPUSH SCH ×2 (13:33→17:57)
[2020-10-21] MEDS: MEROPENEM 500 MG in DEXTROSE 5%-WATER 100 ML IVPB SCH ×2 (13:33→17:54)
[2020-10-21] MEDS: HEPARIN NA (PORCINE) 5,000 UNITS/ML 1ML VIAL SQ SCH ×2 (13:34→21:32)
[2020-10-21] MEDS: oxyCODONE HCL 5 MG TABLET PO PRN ×2 (13:45→21:33)
[2020-10-21] MEDS ORDERED: HYDROCORTISONE 10 MG TABLET PO SCH (14:00)
[2020-10-21] MEDS ORDERED: HYDROmorphone HCl 2 MG/ML VIAL IVPUSH ONE (15:22)
[2020-10-21 16:06] LABS: URINE BACTERIA 7.6 /uL (0-1359); URINE RBC 45.4 /uL (0-23.9)
[2020-10-22] MEDS ORDERED: MEROPENEM 500 MG VIAL (RESTRICTED TO ID) IVPB ONE ×3 (00:18→17:01)
[2020-10-22] MEDS ORDERED: DEXTROSE 5%-WATER 100 ML IVPB ONE ×3 (00:18→17:01)
[2020-10-22] MEDS: oxyCODONE HCL 5 MG TABLET PO PRN ×3 (02:31→19:23)
[2020-10-22] MEDS: MEROPENEM 500 MG in DEXTROSE 5%-WATER 100 ML IVPB SCH ×3 (02:32→17:11)
[2020-10-22] MEDS: HYDROCORTISONE SOD SUCCINATE 100 MG/2 ML VIAL IVPUSH SCH ×3 (02:32→17:11)
[2020-10-22] MEDS: VASOPRESSIN 40 UNITS in SODIUM CHLORIDE 98 ML IVPB SCH (03:32)
[2020-10-22] MEDS: HEPARIN NA (PORCINE) 5,000 UNITS/ML 1ML VIAL SQ SCH ×3 (06:20→23:36)
[2020-10-22] MEDS: DOCUSATE SODIUM 100 MG CAPSULE (FP) PO SCH ×3 (06:20→23:37)
[2020-10-22 06:44] LABS: HEMOGLOBIN 9.8 GM/dL (10.7-15.3); MCH 28.6 pg (25.7-33.7); MCHC 32.5 g/dl (32.0-36.0); MEAN CELL VOLUME 87.8 fl (80-96); MEAN PLT VOLUME 9.8 fl (7.5-11.1); PLATELET COUNT 86 K/MM3 (134-434); RBC 3.42 M/mm3 (3.60-5.2); RDW 17.4 % (11.6-15.6); WHITE BLOOD COUNT 9.6 K/mm3 (4.0-10.0)
[2020-10-22 07:02] LABS: POTASSIUM 4.5 mmol/L (3.5-5.1)
[2020-10-22 07:09] LABS: CALCIUM 7.7 mg/dL (8.5-10.1)
[2020-10-22 07:10] LABS: ALBUMIN 2.3 g/dl (3.4-5.0); BLOOD UREA NITROGEN 37.1 mg/dL (7-18)
[2020-10-22 07:13] LABS: CREATININE 0.9 mg/dL (0.55-1.3)
[2020-10-22 07:14] LABS: BILIRUBIN,TOTAL 5.3 mg/dL (0.2-1); TOT PROT 7.6 g/dl (6.4-8.2)
[2020-10-22] MEDS ORDERED: PT OWN MED DRAWER 7, Y5N ONE (09:14)
[2020-10-22] MEDS: BUPRENORPHINE/NALOXONE 2 MG/0.5 MG FILM PACKET SL SCH ×2 (09:24→09:36)
[2020-10-22] MEDS: FOLIC ACID 1 MG TABLET (FP) PO SCH (09:24)
[2020-10-22] MEDS: ATOVAQUONE 750 MG/5 ML (UNIT-DOSE PACKAGING) PO SCH (09:24)
[2020-10-22] MEDS: LACTULOSE 20 GM/30 ML UDC (FOR ORAL USE ONLY) PO SCH (09:24)
[2020-10-22] MEDS: valACYclovir HCL 500 MG TABLET (FP) PO SCH (09:25)
[2020-10-22] MEDS: ABACAVIR/DOLUTEGRAVIR/LAMIVUDI (TRIUMEQ) TABLET -NF PO SCH (09:25)
[2020-10-22] MEDS: THIAMINE HCL 200 MG/2 ML VIAL IVPB SCH (09:25)
[2020-10-22] MEDS: BUDESONIDE/FORMETEROL FUMARATE 160/4.5 mcg INHALER IH SCH ×2 (09:44→23:37)
[2020-10-22] MEDS: POLYETHYLENE GLYCOL 3350 119 GM BTL PO SCH (09:44)
[2020-10-23] MEDS: oxyCODONE HCL 5 MG TABLET PO PRN ×4 (01:18→22:30)
[2020-10-23] MEDS ORDERED: MEROPENEM 500 MG VIAL (RESTRICTED TO ID) IVPB ONE ×2 (01:46→10:19)
[2020-10-23] MEDS ORDERED: DEXTROSE 5%-WATER 100 ML IVPB ONE ×2 (01:47→10:19)
[2020-10-23] MEDS: MEROPENEM 500 MG in DEXTROSE 5%-WATER 100 ML IVPB SCH ×2 (01:50→10:35)
[2020-10-23] MEDS: HYDROCORTISONE SOD SUCCINATE 100 MG/2 ML VIAL IVPUSH SCH ×4 (01:51→23:50)
[2020-10-23] MEDS: HEPARIN NA (PORCINE) 5,000 UNITS/ML 1ML VIAL SQ SCH ×3 (06:01→21:00)
[2020-10-23] MEDS: DOCUSATE SODIUM 100 MG CAPSULE (FP) PO SCH ×3 (06:03→21:00)
[2020-10-23 07:24] LABS: HEMATOCRIT 29.6 % (32.4-45.2); HEMOGLOBIN 9.7 GM/dL (10.7-15.3); MCH 28.5 pg (25.7-33.7); MCHC 32.8 g/dl (32.0-36.0); MEAN CELL VOLUME 86.9 fl (80-96); MEAN PLT VOLUME 10.3 fl (7.5-11.1); PLATELET COUNT 83 K/MM3 (134-434); RBC 3.41 M/mm3 (3.60-5.2); RDW 17.4 % (11.6-15.6); WHITE BLOOD COUNT 7.6 K/mm3 (4.0-10.0)
[2020-10-23 07:43] LABS: CALCIUM 7.9 mg/dL (8.5-10.1)
[2020-10-23 07:44] LABS: ALBUMIN 2.1 g/dl (3.4-5.0); BLOOD UREA NITROGEN 27.7 mg/dL (7-18)
[2020-10-23 07:47] LABS: CREATININE 0.8 mg/dL (0.55-1.3)
[2020-10-23 07:48] LABS: BILIRUBIN,TOTAL 4.2 mg/dL (0.2-1)
[2020-10-23] MEDS: NOREPINEPHRINE BITARTRATE 8,000 MCG/500 ML BAG IVPB SCH (07:51)
[2020-10-23] MEDS: VASOPRESSIN 40 UNITS in SODIUM CHLORIDE 98 ML IVPB SCH (10:15)
[2020-10-23] MEDS ORDERED: PT OWN MED DRAWER 7, Y5N ONE (10:21)
[2020-10-23] MEDS: THIAMINE HCL 200 MG/2 ML VIAL IVPB SCH (10:38)
[2020-10-23] MEDS: ATOVAQUONE 750 MG/5 ML (UNIT-DOSE PACKAGING) PO SCH (10:39)
[2020-10-23] MEDS: FOLIC ACID 1 MG TABLET (FP) PO SCH (10:39)
[2020-10-23] MEDS: LACTULOSE 20 GM/30 ML UDC (FOR ORAL USE ONLY) PO SCH (10:39)
[2020-10-23] MEDS: BUPRENORPHINE/NALOXONE 2 MG/0.5 MG FILM PACKET SL SCH ×2 (10:39→10:58)
[2020-10-23] MEDS: valACYclovir HCL 500 MG TABLET (FP) PO SCH (10:39)
[2020-10-23] MEDS: POLYETHYLENE GLYCOL 3350 119 GM BTL PO SCH (10:40)
[2020-10-23] MEDS: BUDESONIDE/FORMETEROL FUMARATE 160/4.5 mcg INHALER IH SCH ×2 (10:40→21:01)
[2020-10-23] MEDS: BICTEGRAV/EMTRICIT/TENOFOV (BIKTARVY) 50-200-25 MG TABLET PO SCH (10:40)
[2020-10-23] MEDS ORDERED: HYDROCORTISONE SOD SUCCINATE 100 MG/2 ML VIAL IVPUSH SCH (11:30)
[2020-10-23] MEDS ORDERED: PROCHLORPERAZINE INJECTION 10 MG/2 ML VIAL IVPB ONE (20:20)
[2020-10-24] MEDS: CEFAZOLIN 2 GM/D5W 2 GM/50 ML ML IVPB SCH ×4 (01:25→18:08)
[2020-10-24] MEDS: VASOPRESSIN 40 UNITS in SODIUM CHLORIDE 98 ML IVPB SCH (01:26)
[2020-10-24] MEDS ORDERED: PROCHLORPERAZINE INJECTION 10 MG/2 ML VIAL IVPB ONE (02:11)
[2020-10-24] MEDS: HEPARIN NA (PORCINE) 5,000 UNITS/ML 1ML VIAL SQ SCH ×3 (05:56→21:43)
[2020-10-24] MEDS: DOCUSATE SODIUM 100 MG CAPSULE (FP) PO SCH ×4 (05:57→21:44)
[2020-10-24] MEDS: oxyCODONE HCL 5 MG TABLET PO PRN ×3 (05:58→20:26)
[2020-10-24 07:32] LABS: HEMATOCRIT 32.1 % (32.4-45.2); MCH 27.7 pg (25.7-33.7); MCHC 31.1 g/dl (32.0-36.0); MEAN CELL VOLUME 89.1 fl (80-96); MEAN PLT VOLUME 9.9 fl (7.5-11.1); PLATELET COUNT 73 K/MM3 (134-434); WHITE BLOOD COUNT 5.6 K/mm3 (4.0-10.0)
[2020-10-24 07:59] LABS: POTASSIUM 3.8 mmol/L (3.5-5.1)
[2020-10-24 08:25] LABS: ALBUMIN 2.3 g/dl (3.4-5.0); CALCIUM 8.1 mg/dL (8.5-10.1)
[2020-10-24 08:26] LABS: BLOOD UREA NITROGEN 28.3 mg/dL (7-18)
[2020-10-24 08:28] LABS: CREATININE 0.8 mg/dL (0.55-1.3)
[2020-10-24 08:29] LABS: BILIRUBIN,TOTAL 3.8 mg/dL (0.2-1); TOT PROT 7.4 g/dl (6.4-8.2)
[2020-10-24] MEDS ORDERED: PT OWN MED DRAWER 7, Y5N ONE ×2 (08:50)
[2020-10-24] MEDS: ATOVAQUONE 750 MG/5 ML (UNIT-DOSE PACKAGING) PO SCH (08:55)
[2020-10-24] MEDS: BICTEGRAV/EMTRICIT/TENOFOV (BIKTARVY) 50-200-25 MG TABLET PO SCH (09:05)
[2020-10-24] MEDS: LACTULOSE 20 GM/30 ML UDC (FOR ORAL USE ONLY) PO SCH (09:05)
[2020-10-24] MEDS: POLYETHYLENE GLYCOL 3350 119 GM BTL PO SCH (09:06)
[2020-10-24] MEDS: BUDESONIDE/FORMETEROL FUMARATE 160/4.5 mcg INHALER IH SCH ×3 (09:06→21:45)
[2020-10-24] MEDS: THIAMINE HCL 200 MG/2 ML VIAL IVPB SCH (09:06)
[2020-10-24] MEDS: valACYclovir HCL 500 MG TABLET (FP) PO SCH (09:06)
[2020-10-24] MEDS: FOLIC ACID 1 MG TABLET (FP) PO SCH (09:06)
[2020-10-24] MEDS: HYDROCORTISONE SOD SUCCINATE 100 MG/2 ML VIAL IVPUSH SCH (11:07)
[2020-10-24] MEDS ORDERED: NOREPINEPHRINE BITARTRATE 8,000 MCG/500 ML BAG IVPB SCH (16:33)
[2020-10-24] MEDS ORDERED: VASOPRESSIN 40 UNITS in SODIUM CHLORIDE 98 ML IVPB SCH (16:33)
[2020-10-24] MEDS: ALBUTEROL SO4 0.083% IH SOL 2.5 MG/3 ML VIAL.NEB. NEB PRN ×2 (18:02→21:50)
[2020-10-24] MEDS ORDERED: ONDANSETRON 4 MG/2 ML VIAL IVPUSH ONE (23:34)
[2020-10-25] MEDS: HYDROCORTISONE SOD SUCCINATE 100 MG/2 ML VIAL IVPUSH SCH ×2 (00:08→11:46)
[2020-10-25] MEDS: CEFAZOLIN 2 GM/D5W 2 GM/50 ML ML IVPB SCH ×3 (01:45→17:32)
[2020-10-25] MEDS: oxyCODONE HCL 5 MG TABLET PO PRN ×4 (04:57→21:43)
[2020-10-25] MEDS: DOCUSATE SODIUM 100 MG CAPSULE (FP) PO SCH (05:04)
[2020-10-25] MEDS: HEPARIN NA (PORCINE) 5,000 UNITS/ML 1ML VIAL SQ SCH ×3 (05:04→21:14)
[2020-10-25] MEDS: ALBUTEROL SO4 0.083% IH SOL 2.5 MG/3 ML VIAL.NEB. NEB PRN (08:12)
[2020-10-25 08:37] LABS: HEMATOCRIT 30.5 % (32.4-45.2); HEMOGLOBIN 9.6 GM/dL (10.7-15.3); MCH 28.1 pg (25.7-33.7); MCHC 31.5 g/dl (32.0-36.0); MEAN CELL VOLUME 89.2 fl (80-96); MEAN PLT VOLUME 10.1 fl (7.5-11.1); PLATELET COUNT 59 K/MM3 (134-434); RBC 3.42 M/mm3 (3.60-5.2); RDW 17.7 % (11.6-15.6); WHITE BLOOD COUNT 4.6 K/mm3 (4.0-10.0)
[2020-10-25 09:17] LABS: ALBUMIN 2.1 g/dl (3.4-5.0); BLOOD UREA NITROGEN 29.1 mg/dL (7-18); POTASSIUM 4.1 mmol/L (3.5-5.1)
[2020-10-25] MEDS ORDERED: PT OWN MED DRAWER 7, Y5N ONE (09:38)
[2020-10-25] MEDS: ATOVAQUONE 750 MG/5 ML (UNIT-DOSE PACKAGING) PO SCH (09:54)
[2020-10-25] MEDS: BICTEGRAV/EMTRICIT/TENOFOV (BIKTARVY) 50-200-25 MG TABLET PO SCH (09:55)
[2020-10-25] MEDS: valACYclovir HCL 500 MG TABLET (FP) PO SCH (09:55)
[2020-10-25] MEDS: FOLIC ACID 1 MG TABLET (FP) PO SCH (09:55)
[2020-10-25] MEDS: THIAMINE HCL 200 MG/2 ML VIAL IVPB SCH (09:56)
[2020-10-25] MEDS ORDERED: POLYETHYLENE GLYCOL 3350 119 GM BTL PO SCH ×2 (10:00→16:45)
[2020-10-25] MEDS ORDERED: LACTULOSE 20 GM/30 ML UDC (FOR ORAL USE ONLY) PO SCH (10:00)
[2020-10-25] MEDS: BUDESONIDE/FORMETEROL FUMARATE 160/4.5 mcg INHALER IH SCH ×2 (10:31→21:14)
[2020-10-25] MEDS: ARTIFICIAL TEARS (POLYVINYL ALCOHOL) OPTH DROPS OU PRN (16:35)
[2020-10-25] MEDS ORDERED: PROCHLORPERAZINE INJECTION 10 MG/2 ML VIAL IM ONE (16:56)
[2020-10-25] MEDS: FAMOTIDINE 20 MG TABLET PO SCH (18:06)
[2020-10-26] MEDS: CEFAZOLIN 2 GM/D5W 2 GM/50 ML ML IVPB SCH ×3 (01:10→18:00)
[2020-10-26] MEDS: oxyCODONE HCL 5 MG TABLET PO PRN ×3 (03:43→19:07)
[2020-10-26] MEDS: HEPARIN NA (PORCINE) 5,000 UNITS/ML 1ML VIAL SQ SCH ×3 (05:43→21:08)
[2020-10-26 07:13] LABS: BASO % 0.1 % (0-2.0); EOS % 1.2 % (0-4.5); HEMATOCRIT 31.4 % (32.4-45.2); HEMOGLOBIN 9.7 GM/dL (10.7-15.3); LYMPH % 19.9 % (8-40); MCH 28.1 pg (25.7-33.7); MEAN CELL VOLUME 90.8 fl (80-96); MEAN PLT VOLUME 10.4 fl (7.5-11.1); MONO % 17.4 % (3.8-10.2); NEUT % 61.4 % (42.8-82.8); PLATELET COUNT 65 K/MM3 (134-434); RBC 3.46 M/mm3 (3.60-5.2); RDW 18.2 % (11.6-15.6); WHITE BLOOD COUNT 4.6 K/mm3 (4.0-10.0)
[2020-10-26 07:38] LABS: POTASSIUM 3.9 mmol/L (3.5-5.1)
[2020-10-26 07:41] LABS: BLOOD UREA NITROGEN 28.1 mg/dL (7-18)
[2020-10-26 07:42] LABS: CALCIUM 8.1 mg/dL (8.5-10.1)
[2020-10-26 07:43] LABS: ALBUMIN 2.2 g/dl (3.4-5.0); MAGNESIUM 2.1 mg/dL (1.8-2.4)
[2020-10-26 07:45] LABS: BILIRUBIN,TOTAL 2.8 mg/dL (0.2-1); CREATININE 1.1 mg/dL (0.55-1.3)
[2020-10-26 07:46] LABS: PHOSPHOROUS 2.3 mg/dL (2.5-4.9); TOT PROT 7.2 g/dl (6.4-8.2)
[2020-10-26] MEDS ORDERED: NAPH,MB-DB/K PH,MBDB POWDER PACKET PO ONE (08:14)
[2020-10-26] MEDS ORDERED: PT OWN MED DRAWER 7, Y5N ONE (09:57)
[2020-10-26] MEDS: ATOVAQUONE 750 MG/5 ML (UNIT-DOSE PACKAGING) PO SCH (10:02)
[2020-10-26] MEDS: FAMOTIDINE 20 MG TABLET PO SCH (10:03)
[2020-10-26] MEDS: valACYclovir HCL 500 MG TABLET (FP) PO SCH (10:03)
[2020-10-26] MEDS: BICTEGRAV/EMTRICIT/TENOFOV (BIKTARVY) 50-200-25 MG TABLET PO SCH (10:03)
[2020-10-26] MEDS: FOLIC ACID 1 MG TABLET (FP) PO SCH (10:03)
[2020-10-26] MEDS: BUDESONIDE/FORMETEROL FUMARATE 160/4.5 mcg INHALER IH SCH ×3 (10:04→21:09)
[2020-10-26] MEDS: THIAMINE HCL 200 MG/2 ML VIAL IVPB SCH (10:05)
[2020-10-26] MEDS: ARTIFICIAL TEARS (POLYVINYL ALCOHOL) OPTH DROPS OU PRN (21:10)
[2020-10-26] MEDS: ALBUTEROL SO4 0.083% IH SOL 2.5 MG/3 ML VIAL.NEB. NEB PRN (21:34)
[2020-10-27] MEDS: oxyCODONE HCL 5 MG TABLET PO PRN ×4 (01:23→14:27)
[2020-10-27] MEDS: CEFAZOLIN 2 GM/D5W 2 GM/50 ML ML IVPB SCH ×3 (01:24→17:57)
[2020-10-27] MEDS: HEPARIN NA (PORCINE) 5,000 UNITS/ML 1ML VIAL SQ SCH ×3 (05:07→21:11)
[2020-10-27] MEDS ORDERED: PT OWN MED DRAWER 7, Y5N ONE ×3 (08:23→13:42)
[2020-10-27 08:24] LABS: EOS % 2.1 % (0-4.5); HEMOGLOBIN 9.6 GM/dL (10.7-15.3); LYMPH % 18.2 % (8-40); MCH 28.8 pg (25.7-33.7); MCHC 32.1 g/dl (32.0-36.0); MEAN CELL VOLUME 89.7 fl (80-96); MEAN PLT VOLUME 10.5 fl (7.5-11.1); MONO % 13.1 % (3.8-10.2); NEUT % 66.6 % (42.8-82.8); PLATELET COUNT 73 K/MM3 (134-434); RBC 3.35 M/mm3 (3.60-5.2); RDW 16.9 % (11.6-15.6); WHITE BLOOD COUNT 4.6 K/mm3 (4.0-10.0)
[2020-10-27 08:46] LABS: POTASSIUM 3.7 mmol/L (3.5-5.1)
[2020-10-27 08:50] LABS: CALCIUM 7.7 mg/dL (8.5-10.1)
[2020-10-27 08:51] LABS: ALBUMIN 2.2 g/dl (3.4-5.0)
[2020-10-27 08:53] LABS: BLOOD UREA NITROGEN 17.3 mg/dL (7-18); CREATININE 0.8 mg/dL (0.55-1.3); MAGNESIUM 1.8 mg/dL (1.8-2.4)
[2020-10-27 08:55] LABS: TOT PROT 6.9 g/dl (6.4-8.2)
[2020-10-27 08:56] LABS: BILIRUBIN,TOTAL 3.1 mg/dL (0.2-1); PHOSPHOROUS 2.3 mg/dL (2.5-4.9)
[2020-10-27] MEDS: valACYclovir HCL 500 MG TABLET (FP) PO SCH (10:13)
[2020-10-27] MEDS: ATOVAQUONE 750 MG/5 ML (UNIT-DOSE PACKAGING) PO SCH (10:13)
[2020-10-27] MEDS: BICTEGRAV/EMTRICIT/TENOFOV (BIKTARVY) 50-200-25 MG TABLET PO SCH (10:13)
[2020-10-27] MEDS: FOLIC ACID 1 MG TABLET (FP) PO SCH (10:14)
[2020-10-27] MEDS: BUDESONIDE/FORMETEROL FUMARATE 160/4.5 mcg INHALER IH SCH (10:14)
[2020-10-27] MEDS: FAMOTIDINE 20 MG TABLET PO SCH (10:14)
[2020-10-27] MEDS: THIAMINE HCL 200 MG/2 ML VIAL IVPB SCH (10:15)
[2020-10-27 11:41] LABS: ANISOCYTOSIS 0; HELMET CELLS 0; HOWELL-JOLLY BODIES 0; MACROCYTOSIS 0; OVALOCYTE 0; PLATELET ESTIMATE DECREASED; ROULEAU 0; SICKELED CELLS 0; TARGET CELLS 0; TEAR DROP CELLS 0; TOXIC GRANULATION 0
[2020-10-27] MEDS: TIOTROPIUM BROMIDE 2.5 MCG (SPIRIVA) RESPIMAT INHALER IH SCH (13:47)
[2020-10-27] MEDS ORDERED: oxyCODONE HCL 5 MG TABLET PO ONE (20:05)
[2020-10-27] MEDS: ALBUTEROL SO4 0.083% IH SOL 2.5 MG/3 ML VIAL.NEB. NEB PRN (20:35)
[2020-10-28] MEDS: CEFAZOLIN 2 GM/D5W 2 GM/50 ML ML IVPB SCH ×2 (02:06→17:15)
[2020-10-28] MEDS ORDERED: oxyCODONE HCL 5 MG TABLET PO ONE ×2 (02:25→06:22)
[2020-10-28] MEDS: HEPARIN NA (PORCINE) 5,000 UNITS/ML 1ML VIAL SQ SCH ×3 (05:50→21:28)
[2020-10-28] MEDS: ATOVAQUONE 750 MG/5 ML (UNIT-DOSE PACKAGING) PO SCH (08:47)
[2020-10-28] MEDS ORDERED: CEPHALEXIN MONOHYDRATE 500 MG CAPSULE (UD) PO SCH (10:00)
[2020-10-28] MEDS ORDERED: ERGOCALCIFEROL (VIT D2) 50,000 UNIT (1.25 MG) CAPSULE PO SCH (10:00)
[2020-10-28] MEDS ORDERED: PT OWN MED DRAWER 7, Y5N ONE (10:31)
[2020-10-28] MEDS: valACYclovir HCL 500 MG TABLET (FP) PO SCH (10:50)
[2020-10-28] MEDS: FOLIC ACID 1 MG TABLET (FP) PO SCH (10:50)
[2020-10-28] MEDS: FAMOTIDINE 20 MG TABLET PO SCH (10:50)
[2020-10-28] MEDS: THIAMINE HCL 200 MG/2 ML VIAL IVPB SCH (10:50)
[2020-10-28] MEDS: BICTEGRAV/EMTRICIT/TENOFOV (BIKTARVY) 50-200-25 MG TABLET PO SCH (10:52)
[2020-10-28] MEDS: TIOTROPIUM BROMIDE 2.5 MCG (SPIRIVA) RESPIMAT INHALER IH SCH (10:52)
[2020-10-28] MEDS: oxyCODONE HCL 5 MG TABLET PO PRN ×2 (12:29→17:23)
[2020-10-28 18:28] LABS: BLOOD UREA NITROGEN 11.4 mg/dL (7-18); CALCIUM 7.7 mg/dL (8.5-10.1); CREATININE 0.8 mg/dL (0.55-1.3); MAGNESIUM 1.8 mg/dL (1.8-2.4); PHOSPHOROUS 1.3 mg/dL (2.5-4.9); POTASSIUM 3.9 mmol/L (3.5-5.1); TOT PROT 6.6 g/dl (6.4-8.2)
[2020-10-28] MEDS ORDERED: NAPH,MB-DB/K PH,MBDB POWDER PACKET PO ONE (18:45)
[2020-10-29] MEDS ORDERED: PT OWN MED DRAWER 7, Y5N ONE ×2 (02:00→11:14)
[2020-10-29] MEDS: CEFAZOLIN 2 GM/D5W 2 GM/50 ML ML IVPB SCH ×3 (02:13→17:36)
[2020-10-29] MEDS: HEPARIN NA (PORCINE) 5,000 UNITS/ML 1ML VIAL SQ SCH ×3 (06:20→21:03)
[2020-10-29] MEDS: oxyCODONE HCL 5 MG TABLET PO PRN ×2 (07:47→13:49)
[2020-10-29 07:55] LABS: BASO % 0.2 % (0-2.0); EOS % 3.7 % (0-4.5); HEMATOCRIT 29.7 % (32.4-45.2); HEMOGLOBIN 9.4 GM/dL (10.7-15.3); LYMPH % 19.7 % (8-40); MCH 28.5 pg (25.7-33.7); MCHC 31.8 g/dl (32.0-36.0); MEAN CELL VOLUME 89.9 fl (80-96); MEAN PLT VOLUME 10.3 fl (7.5-11.1); MONO % 12.2 % (3.8-10.2); NEUT % 64.2 % (42.8-82.8); PLATELET COUNT 82 K/MM3 (134-434); RDW 17.5 % (11.6-15.6); WHITE BLOOD COUNT 4.9 K/mm3 (4.0-10.0)
[2020-10-29 08:49] LABS: POTASSIUM 3.9 mmol/L (3.5-5.1)
[2020-10-29 09:10] LABS: ALBUMIN 2.1 g/dl (3.4-5.0); BLOOD UREA NITROGEN 8.8 mg/dL (7-18); CALCIUM 7.9 mg/dL (8.5-10.1)
[2020-10-29 09:12] LABS: MAGNESIUM 1.8 mg/dL (1.8-2.4)
[2020-10-29 09:14] LABS: CREATININE 0.7 mg/dL (0.55-1.3)
[2020-10-29 09:15] LABS: BILIRUBIN,TOTAL 3.5 mg/dL (0.2-1); TOT PROT 6.7 g/dl (6.4-8.2)
[2020-10-29] MEDS ORDERED: NAPH,MB-DB/K PH,MBDB POWDER PACKET PO ONE (09:27)
[2020-10-29 12:07] LABS: ANISOCYTOSIS 1+; MACROCYTOSIS 1+; PLATELET ESTIMATE DECREASED
[2020-10-29] MEDS: ATOVAQUONE 750 MG/5 ML (UNIT-DOSE PACKAGING) PO SCH (12:29)
[2020-10-29] MEDS: THIAMINE HCL 200 MG/2 ML VIAL IVPB SCH (13:37)
[2020-10-29] MEDS: FOLIC ACID 1 MG TABLET (FP) PO SCH (13:48)
[2020-10-29] MEDS: valACYclovir HCL 500 MG TABLET (FP) PO SCH (13:48)
[2020-10-29] MEDS: FAMOTIDINE 20 MG TABLET PO SCH (13:48)
[2020-10-29] MEDS: BICTEGRAV/EMTRICIT/TENOFOV (BIKTARVY) 50-200-25 MG TABLET PO SCH (13:48)
[2020-10-29] MEDS: TIOTROPIUM BROMIDE 2.5 MCG (SPIRIVA) RESPIMAT INHALER IH SCH (14:03)
[2020-10-30] MEDS: CEFAZOLIN 2 GM/D5W 2 GM/50 ML ML IVPB SCH ×3 (01:50→17:44)
[2020-10-30] MEDS: HEPARIN NA (PORCINE) 5,000 UNITS/ML 1ML VIAL SQ SCH ×2 (07:18→14:01)
[2020-10-30] MEDS: oxyCODONE HCL 5 MG TABLET PO PRN ×3 (07:19→17:47)
[2020-10-30 08:05] LABS: BASO % 0.1 % (0-2.0); EOS % 1.7 % (0-4.5); HEMATOCRIT 29.6 % (32.4-45.2); HEMOGLOBIN 9.6 GM/dL (10.7-15.3); LYMPH % 18.9 % (8-40); MCH 28.9 pg (25.7-33.7); MCHC 32.3 g/dl (32.0-36.0); MEAN CELL VOLUME 89.4 fl (80-96); MEAN PLT VOLUME 9.5 fl (7.5-11.1); NEUT % 68.3 % (42.8-82.8); PLATELET COUNT 90 K/MM3 (134-434); RBC 3.31 M/mm3 (3.60-5.2); RDW 17.9 % (11.6-15.6)
[2020-10-30 08:10] LABS: POTASSIUM 3.6 mmol/L (3.5-5.1)
[2020-10-30 08:28] LABS: ALBUMIN 2.1 g/dl (3.4-5.0); CALCIUM 7.7 mg/dL (8.5-10.1); MAGNESIUM 1.8 mg/dL (1.8-2.4)
[2020-10-30 08:30] LABS: CREATININE 0.9 mg/dL (0.55-1.3)
[2020-10-30 08:31] LABS: PHOSPHOROUS 2.1 mg/dL (2.5-4.9)
[2020-10-30 08:32] LABS: TOT PROT 6.9 g/dl (6.4-8.2)
[2020-10-30 08:33] LABS: BILIRUBIN,TOTAL 2.6 mg/dL (0.2-1)
[2020-10-30] MEDS: ATOVAQUONE 750 MG/5 ML (UNIT-DOSE PACKAGING) PO SCH (10:58)
[2020-10-30] MEDS: BICTEGRAV/EMTRICIT/TENOFOV (BIKTARVY) 50-200-25 MG TABLET PO SCH (10:58)
[2020-10-30] MEDS: FAMOTIDINE 20 MG TABLET PO SCH (10:59)
[2020-10-30] MEDS: THIAMINE HCL 200 MG/2 ML VIAL IVPB SCH (10:59)
[2020-10-30] MEDS: valACYclovir HCL 500 MG TABLET (FP) PO SCH (10:59)
[2020-10-30] MEDS: FOLIC ACID 1 MG TABLET (FP) PO SCH (10:59)
[2020-10-30] MEDS: TIOTROPIUM BROMIDE 2.5 MCG (SPIRIVA) RESPIMAT INHALER IH SCH (11:05)
[2020-10-30] MEDS ORDERED: NAPH,MB-DB/K PH,MBDB POWDER PACKET PO ONE (12:53)
[2020-10-30 15:41] VITALS: BP 102/61; PULSE 88; TEMP 97.6
== END 2020-10-30 22:14 | disposition home health service (06) | DRG 974 ==
LOC: JER 17:55 → JERBED 10-21 01:35 → JICU 10-21 02:54 → J8W 10-24 17:43
PROVIDERS: ADMIT Internal Medicine Pulmonary Disease; ATTEND Internal Medicine
PROC: 05HM33Z Insertion of Infusion Device into Right Internal Jugular Vein, Percutaneous Approach (ICD-10-PCS; principal; 2020-10-20)
PROC: B543ZZA Ultrasonography of Right Jugular Veins, Guidance (ICD-10-PCS; 2020-10-20)
DX: A41.50 Gram-negative sepsis, unspecified (principal); R65.21 Severe sepsis with septic shock; B20 Human immunodeficiency virus [HIV] disease; N17.9 Acute kidney failure, unspecified; I24.8 Other forms of acute ischemic heart disease; N39.0 Urinary tract infection, site not specified; C21.0 Malignant neoplasm of anus, unspecified; C78.7 Secondary malignant neoplasm of liver and intrahepatic bile duct; E87.2 Acidosis; R18.8 Other ascites; D72.829 Elevated white blood cell count, unspecified; D69.6 Thrombocytopenia, unspecified; D64.9 Anemia, unspecified; R74.01 Elevation of levels of liver transaminase levels; R00.0 Tachycardia, unspecified; I95.9 Hypotension, unspecified
CPT/HCPCS: 36415; 70450-TC; 71045-TC-FY; 71250-TC; 74176-TC; 74177-TC; 76705-TC; 80048; 80053; 81003; 82550; 82553; 82803; 83605; 83735; 84100; 84484; 85025; 85027; 85610; 85730; 87040; 87086; 87186; 87804; 93005; 93010; 94640; 94761; 97116-GP; 97161-GP; 99291; C9803; J0131; J1644; Q9967; U0003

== ENCOUNTER 2020-11-05 09:14 | Inpatient (IN) | payer OTHER ==
[2020-11-05] MEDS ORDERED: morphine CARPU-JECT 2 MG/1 ML DISP.SYRIN IVPUSH ONE (09:31)
[2020-11-05] MEDS ORDERED: morphine SULFATE 4 MG/ML VIAL ONE (09:44)
[2020-11-05] MEDS ORDERED: ACETAMINOPHEN INJECTION 100 ML IVPB ONE (09:44)
[2020-11-05 10:54] LABS: BASO % 0.5 % (0-2.0); HEMATOCRIT 33.4 % (32.4-45.2); HEMOGLOBIN 10.7 GM/dL (10.7-15.3); LYMPH % 6.3 % (8-40); MCH 29.2 pg (25.7-33.7); MCHC 31.9 g/dl (32.0-36.0); MEAN CELL VOLUME 91.4 fl (80-96); MEAN PLT VOLUME 9.4 fl (7.5-11.1); MONO % 5.4 % (3.8-10.2); NEUT % 87.8 % (42.8-82.8); PLATELET COUNT 110 K/MM3 (134-434); RBC 3.66 M/mm3 (3.60-5.2); RDW 21.7 % (11.6-15.6); WHITE BLOOD COUNT 8.3 K/mm3 (4.0-10.0)
[2020-11-05 11:00] LABS: INR 1.29 (0.83-1.09); PROTHROMBIN TIME (PATIENT) 15.5 SEC (9.7-13.0)
[2020-11-05 11:03] LABS: ACTIVATED PTT 37.4 SECONDS (25.2-36.5)
[2020-11-05 11:55] LABS: ALBUMIN 2.4 g/dl (3.4-5.0); CALCIUM 8.1 mg/dL (8.5-10.1)
[2020-11-05 11:56] LABS: BLOOD UREA NITROGEN 10.8 mg/dL (7-18)
[2020-11-05 11:59] LABS: BILIRUBIN,TOTAL 3.6 mg/dL (0.2-1); TOT PROT 8.4 g/dl (6.4-8.2)
[2020-11-05 12:03] LABS: N-TERMINAL BNP 182.4 pg/ml (5-125)
[2020-11-05 12:06] LABS: LACTIC ACID 2.6 mmol/L (0.4-2.0)
[2020-11-05] MEDS ORDERED: ACETAMINOPHEN 1000 MG/100 ML VIAL (NON FORMULARY) IVPB ONE (12:20)
[2020-11-05 13:33] LABS: EPI CELLS 20 /uL (0-25.1); HYALINE CASTS 3 /uL (0-3.1); PH,URINE 6.5 (5.0-8.0); URINE APPEARANCE CLEAR; URINE BACTERIA 339 /uL (0-1359); URINE BILIRUBIN 1+ (NEGATIVE); URINE COLOR DK YELLOW; URINE GLUCOSE (UA) NEGATIVE (NEGATIVE); URINE KETONE 1+ (NEGATIVE); URINE LEUK ESTERASE TRACE (NEGATIVE); URINE NITRITE NEGATIVE (NEGATIVE); URINE PROTEIN TRACE (NEGATIVE); URINE RBC 6 /uL (0-23.9); URINE WBC 10 /uL (0-25.8)
[2020-11-05] MEDS ORDERED: MEROPENEM 1 GM in DEXTROSE 5%-WATER 100 ML IVPB ONE (15:38)
[2020-11-05] MEDS ORDERED: MEROPENEM 1 GM VIAL (RESTRICTED TO ID) IVPB ONE (16:00)
[2020-11-05] MEDS ORDERED: MIDODRINE HCL 2.5 MG TABLET PO ONE (17:06)
[2020-11-05] MEDS ORDERED: FENTANYL PATCH WASTE MC PRN (17:26)
[2020-11-05] MEDS ORDERED: fentaNYL 12mcg/hr PATCH.TD72 TD SCH (17:30)
[2020-11-05] MEDS ORDERED: SODIUM CHLORIDE 0.9% 500 ML INFUS.BAG IV ONE (17:56)
[2020-11-05] MEDS ORDERED: ENOXAPARIN NA (PORCINE) 40 MG/0.4 ML DISP.SYRIN SQ SCH (18:00)
[2020-11-05] MEDS ORDERED: ALBUTEROL SO4 HFA INHALER IH PRN (18:05)
[2020-11-05] MEDS ORDERED: ACETAMINOPHEN 325 MG TABLET (FP) PO PRN (18:40)
[2020-11-05] MEDS ORDERED: ENOXAPARIN NA (PORCINE) 40 MG/0.4 ML DISP.SYRIN SQ ONE (18:45)
[2020-11-05] MEDS ORDERED: PANTOPRAZOLE 40 MG TABLET ONE (18:45)
[2020-11-05] MEDS: PANTOPRAZOLE 40 MG TABLET PO SCH (18:58)
[2020-11-05 19:11] LABS: LACTIC ACID 2.5 mmol/L (0.4-2.0)
[2020-11-05] MEDS: oxyCODONE HCL 5 MG TABLET PO PRN (19:33)
[2020-11-05] MEDS: BICTEGRAV/EMTRICIT/TENOFOV (BIKTARVY) 50-200-25 MG TABLET PO SCH (19:37)
[2020-11-05] MEDS: TIOTROPIUM BROMIDE 2.5 MCG (SPIRIVA) RESPIMAT INHALER IH SCH (19:37)
[2020-11-05] MEDS ORDERED: oxyCODONE HCL 5 MG TABLET ONE ×2 (19:39→21:58)
[2020-11-05] MEDS ORDERED: SODIUM CHLORIDE 1,000 ML IV SCH (21:45)
[2020-11-05] MEDS ORDERED: oxyCODONE HCL 5 MG TABLET PO ONE (21:47)
[2020-11-06] MEDS ORDERED: oxyCODONE HCL 5 MG TABLET ONE (06:17)
[2020-11-06] MEDS: oxyCODONE HCL 5 MG TABLET PO PRN ×4 (06:33→21:41)
[2020-11-06] MEDS ORDERED: MEROPENEM 1 GM VIAL (RESTRICTED TO ID) IVPB ONE ×3 (06:35→17:05)
[2020-11-06] MEDS: MEROPENEM 1 GM in DEXTROSE 5%-WATER 100 ML IVPB SCH ×3 (06:43→17:12)
[2020-11-06 07:30] LABS: BASO % 0.5 % (0-2.0); EOS % 0.8 % (0-4.5); HEMATOCRIT 28.9 % (32.4-45.2); HEMOGLOBIN 9.2 GM/dL (10.7-15.3); LYMPH % 15.2 % (8-40); MCH 29.5 pg (25.7-33.7); MEAN CELL VOLUME 92.4 fl (80-96); MEAN PLT VOLUME 9.6 fl (7.5-11.1); MONO % 11.4 % (3.8-10.2); NEUT % 72.1 % (42.8-82.8); PLATELET COUNT 73 K/MM3 (134-434); RBC 3.13 M/mm3 (3.60-5.2); RDW 21.6 % (11.6-15.6); WHITE BLOOD COUNT 6.2 K/mm3 (4.0-10.0)
[2020-11-06 07:47] LABS: ALBUMIN 2.1 g/dl (3.4-5.0); CALCIUM 7.6 mg/dL (8.5-10.1)
[2020-11-06 07:48] LABS: BLOOD UREA NITROGEN 16.6 mg/dL (7-18); MAGNESIUM 1.8 mg/dL (1.8-2.4)
[2020-11-06 07:50] LABS: BILIRUBIN,TOTAL 2.6 mg/dL (0.2-1); TOT PROT 7.3 g/dl (6.4-8.2)
[2020-11-06 07:51] LABS: CREATININE 1.2 mg/dL (0.55-1.3); PHOSPHOROUS 2.7 mg/dL (2.5-4.9)
[2020-11-06] MEDS ORDERED: PT OWN MED DRAWER 7, Y5N ONE (10:44)
[2020-11-06] MEDS ORDERED: DEXTROSE 5%-WATER 100 ML IVPB ONE ×2 (10:44→17:05)
[2020-11-06] MEDS: PANTOPRAZOLE 40 MG TABLET PO SCH (10:50)
[2020-11-06] MEDS: TIOTROPIUM BROMIDE 2.5 MCG (SPIRIVA) RESPIMAT INHALER IH SCH (11:11)
[2020-11-06 11:16] LABS: ANISOCYTOSIS 1+; MACROCYTOSIS 0; PLATELET ESTIMATE DECREASED
[2020-11-06] MEDS: BICTEGRAV/EMTRICIT/TENOFOV (BIKTARVY) 50-200-25 MG TABLET PO SCH (13:27)
[2020-11-06] MEDS ORDERED: NAPH,MB-DB/K PH,MBDB POWDER PACKET PO ONE (13:45)
[2020-11-06 15:07] LABS: BF WBC & OTHER NUCLEATED CELLS 3596 /mm3
[2020-11-06 15:34] LABS: BODY FLUID MACROPHAGES 7 %; BODY FLUID MONOCYTE 8 %
[2020-11-06] MEDS ORDERED: ARTIFICIAL TEARS (POLYVINYL ALCOHOL) OPTH DROPS OU PRN (19:54)
[2020-11-06] MEDS ORDERED: METOCLOPRAMIDE HCL INJECTION 10 MG/2 ML VIAL IVPUSH ONE (20:25)
[2020-11-06] MEDS: SODIUM CHLORIDE 1,000 ML IV SCH (20:38)
[2020-11-07] MEDS ORDERED: MEROPENEM 1 GM VIAL (RESTRICTED TO ID) IVPB ONE ×3 (00:57→16:58)
[2020-11-07] MEDS ORDERED: DEXTROSE 5%-WATER 100 ML IVPB ONE ×3 (00:58→16:58)
[2020-11-07] MEDS: MEROPENEM 1 GM in DEXTROSE 5%-WATER 100 ML IVPB SCH ×3 (01:44→17:03)
[2020-11-07] MEDS ORDERED: ACETAMINOPHEN 325 MG TABLET (FP) PO PRN (04:06)
[2020-11-07] MEDS ORDERED: ALBUTEROL SO4 HFA INHALER IH PRN (04:06)
[2020-11-07] MEDS: oxyCODONE HCL 5 MG TABLET PO PRN ×4 (06:01→21:36)
[2020-11-07] MEDS: SODIUM CHLORIDE 1,000 ML IV SCH ×2 (06:02→15:40)
[2020-11-07 06:36] LABS: BASO % 0.3 % (0-2.0); EOS % 1.4 % (0-4.5); HEMATOCRIT 24.8 % (32.4-45.2); HEMOGLOBIN 7.9 GM/dL (10.7-15.3); LYMPH % 18.6 % (8-40); MCH 29.3 pg (25.7-33.7); MCHC 31.9 g/dl (32.0-36.0); MEAN CELL VOLUME 91.9 fl (80-96); MEAN PLT VOLUME 9.5 fl (7.5-11.1); MONO % 11.7 % (3.8-10.2); PLATELET COUNT 62 K/MM3 (134-434); RDW 20.9 % (11.6-15.6); WHITE BLOOD COUNT 5.2 K/mm3 (4.0-10.0)
[2020-11-07 06:42] LABS: CALCIUM 7.1 mg/dL (8.5-10.1)
[2020-11-07 06:43] LABS: ALBUMIN 1.8 g/dl (3.4-5.0); BLOOD UREA NITROGEN 16.9 mg/dL (7-18); MAGNESIUM 1.7 mg/dL (1.8-2.4)
[2020-11-07 06:46] LABS: CREATININE 0.8 mg/dL (0.55-1.3); PHOSPHOROUS 2.5 mg/dL (2.5-4.9)
[2020-11-07 06:47] LABS: BILIRUBIN,TOTAL 2.3 mg/dL (0.2-1); TOT PROT 6.4 g/dl (6.4-8.2)
[2020-11-07] MEDS ORDERED: MAGNESIUM OXIDE 400 MG TABLET (FP) PO ONE (09:26)
[2020-11-07] MEDS ORDERED: PT OWN MED DRAWER 7, Y5N ONE (09:34)
[2020-11-07] MEDS: PANTOPRAZOLE 40 MG TABLET PO SCH (09:38)
[2020-11-07] MEDS: BICTEGRAV/EMTRICIT/TENOFOV (BIKTARVY) 50-200-25 MG TABLET PO SCH (09:39)
[2020-11-07] MEDS: TIOTROPIUM BROMIDE 2.5 MCG (SPIRIVA) RESPIMAT INHALER IH SCH (09:40)
[2020-11-07 16:11] LABS: HEMATOCRIT 28.2 % (32.4-45.2); HEMOGLOBIN 8.9 GM/dL (10.7-15.3); MCH 29.3 pg (25.7-33.7); MCHC 31.4 g/dl (32.0-36.0); MEAN CELL VOLUME 93.3 fl (80-96); MEAN PLT VOLUME 9.6 fl (7.5-11.1); PLATELET COUNT 68 K/MM3 (134-434); RBC 3.03 M/mm3 (3.60-5.2); RDW 21.6 % (11.6-15.6); WHITE BLOOD COUNT 4.6 K/mm3 (4.0-10.0)
[2020-11-08] MEDS: CEFAZOLIN 2 GM/D5W 2 GM/50 ML ML IVPB SCH ×3 (01:04→17:18)
[2020-11-08] MEDS: oxyCODONE HCL 5 MG TABLET PO PRN ×4 (03:48→20:54)
[2020-11-08 07:57] LABS: HEMATOCRIT 26.4 % (32.4-45.2); HEMOGLOBIN 8.5 GM/dL (10.7-15.3); MCH 29.7 pg (25.7-33.7); MCHC 32.4 g/dl (32.0-36.0); MEAN CELL VOLUME 91.7 fl (80-96); PLATELET COUNT 67 K/MM3 (134-434); RBC 2.88 M/mm3 (3.60-5.2); RDW 21.4 % (11.6-15.6); WHITE BLOOD COUNT 3.7 K/mm3 (4.0-10.0)
[2020-11-08 08:00] LABS: CALCIUM 7.4 mg/dL (8.5-10.1)
[2020-11-08 08:01] LABS: MAGNESIUM 1.8 mg/dL (1.8-2.4)
[2020-11-08 08:04] LABS: CREATININE 0.7 mg/dL (0.55-1.3)
[2020-11-08] MEDS: PANTOPRAZOLE 40 MG TABLET PO SCH (10:15)
[2020-11-08] MEDS ORDERED: PT OWN MED DRAWER 7, Y5N ONE (10:21)
[2020-11-08] MEDS: BICTEGRAV/EMTRICIT/TENOFOV (BIKTARVY) 50-200-25 MG TABLET PO SCH (10:21)
[2020-11-08] MEDS: TIOTROPIUM BROMIDE 2.5 MCG (SPIRIVA) RESPIMAT INHALER IH SCH (10:23)
[2020-11-08 12:09] LABS: BODY FLUID ALBUMIN 0.6 g/dL (Not Estab.)
[2020-11-08 13:09] VITALS: BMI 25.8
[2020-11-08] MEDS ORDERED: POTASSIUM PHOSPHATE 15 MM in SODIUM CHLORIDE 250 ML IVPB ONE (18:35)
[2020-11-08] MEDS ORDERED: NAPH,MB-DB/K PH,MBDB POWDER PACKET PO ONE (18:36)
[2020-11-08] MEDS: SODIUM CHLORIDE 1,000 ML IV SCH (18:56)
[2020-11-09] MEDS: CEFAZOLIN 2 GM/D5W 2 GM/50 ML ML IVPB SCH ×3 (02:53→17:51)
[2020-11-09] MEDS: oxyCODONE HCL 5 MG TABLET PO PRN ×3 (03:09→18:00)
[2020-11-09] MEDS ORDERED: PT OWN MED DRAWER 7, Y5N ONE (08:02)
[2020-11-09 08:37] LABS: HEMATOCRIT 26.8 % (32.4-45.2); HEMOGLOBIN 8.5 GM/dL (10.7-15.3); MCH 29.2 pg (25.7-33.7); MCHC 31.5 g/dl (32.0-36.0); MEAN CELL VOLUME 92.6 fl (80-96); MEAN PLT VOLUME 9.5 fl (7.5-11.1); PLATELET COUNT 67 K/MM3 (134-434); RDW 21.2 % (11.6-15.6); RETICULOCYTES 1.23 % (0.5-1.5); WHITE BLOOD COUNT 2.8 K/mm3 (4.0-10.0)
[2020-11-09 08:56] LABS: BLOOD UREA NITROGEN 9.5 mg/dL (7-18); CALCIUM 7.6 mg/dL (8.5-10.1); MAGNESIUM 1.9 mg/dL (1.8-2.4)
[2020-11-09 08:59] LABS: CREATININE 0.7 mg/dL (0.55-1.3)
[2020-11-09 09:00] LABS: PHOSPHOROUS 2.2 mg/dL (2.5-4.9)
[2020-11-09] MEDS: BICTEGRAV/EMTRICIT/TENOFOV (BIKTARVY) 50-200-25 MG TABLET PO SCH (09:35)
[2020-11-09] MEDS: PANTOPRAZOLE 40 MG TABLET PO SCH (09:35)
[2020-11-09] MEDS: TIOTROPIUM BROMIDE 2.5 MCG (SPIRIVA) RESPIMAT INHALER IH SCH (09:35)
[2020-11-09] MEDS: ATOVAQUONE 750 MG/5 ML (UNIT-DOSE PACKAGING) PO SCH (09:35)
[2020-11-09] MEDS ORDERED: SODIUM PHOSPHATE - 20 MM in DEXTROSE 5%-WATER - 250 ML IVPB ONE (10:30)
[2020-11-09] MEDS: valACYclovir HCL 500 MG TABLET (FP) PO SCH (16:21)
[2020-11-10] MEDS: CEFAZOLIN 2 GM/D5W 2 GM/50 ML ML IVPB SCH ×3 (01:06→17:37)
[2020-11-10] MEDS: oxyCODONE HCL 5 MG TABLET PO PRN ×3 (01:06→21:28)
[2020-11-10 07:27] LABS: BASO % 0.3 % (0-2.0); EOS % 6.6 % (0-4.5); HEMATOCRIT 26.9 % (32.4-45.2); HEMOGLOBIN 8.6 GM/dL (10.7-15.3); LYMPH % 29.5 % (8-40); MCH 29.5 pg (25.7-33.7); MCHC 31.9 g/dl (32.0-36.0); MEAN CELL VOLUME 92.7 fl (80-96); MEAN PLT VOLUME 9.2 fl (7.5-11.1); MONO % 15.6 % (3.8-10.2); PLATELET COUNT 60 K/MM3 (134-434); RDW 20.5 % (11.6-15.6); WHITE BLOOD COUNT 2.5 K/mm3 (4.0-10.0)
[2020-11-10 07:29] LABS: BLOOD UREA NITROGEN 6.7 mg/dL (7-18)
[2020-11-10 07:30] LABS: CALCIUM 7.5 mg/dL (8.5-10.1); MAGNESIUM 1.8 mg/dL (1.8-2.4)
[2020-11-10 07:31] LABS: TOT PROT 7.1 g/dl (6.4-8.2)
[2020-11-10 07:32] LABS: CREATININE 0.7 mg/dL (0.55-1.3)
[2020-11-10 07:33] LABS: PHOSPHOROUS 2.3 mg/dL (2.5-4.9)
[2020-11-10] MEDS: ATOVAQUONE 750 MG/5 ML (UNIT-DOSE PACKAGING) PO SCH (09:32)
[2020-11-10] MEDS: valACYclovir HCL 500 MG TABLET (FP) PO SCH (09:46)
[2020-11-10] MEDS: BICTEGRAV/EMTRICIT/TENOFOV (BIKTARVY) 50-200-25 MG TABLET PO SCH (09:46)
[2020-11-10] MEDS: PANTOPRAZOLE 40 MG TABLET PO SCH (09:46)
[2020-11-10 11:16] LABS: ANISOCYTOSIS 1+; MACROCYTOSIS 1+; OVALOCYTE 1+; PLATELET ESTIMATE DECREASED
[2020-11-10] MEDS: TIOTROPIUM BROMIDE 2.5 MCG (SPIRIVA) RESPIMAT INHALER IH SCH (13:06)
[2020-11-10] MEDS ORDERED: SENNOSIDES 8.6MG TABLET (FP) PO PRN (16:24)
[2020-11-10] MEDS ORDERED: POLYETHYLENE GLYCOL 3350 119 GM BTL PO SCH (16:30)
[2020-11-10] MEDS ORDERED: LACTULOSE 20 GM/30 ML UDC (FOR ORAL USE ONLY) PO ONE (16:44)
[2020-11-11] MEDS: CEFAZOLIN 2 GM/D5W 2 GM/50 ML ML IVPB SCH ×3 (02:02→17:44)
[2020-11-11] MEDS: oxyCODONE HCL 5 MG TABLET PO PRN ×3 (03:18→17:42)
[2020-11-11 07:52] LABS: BASO % 0.4 % (0-2.0); EOS % 4.4 % (0-4.5); HEMATOCRIT 27.3 % (32.4-45.2); HEMOGLOBIN 8.7 GM/dL (10.7-15.3); LYMPH % 27.9 % (8-40); MCH 29.4 pg (25.7-33.7); MCHC 31.8 g/dl (32.0-36.0); MEAN CELL VOLUME 92.5 fl (80-96); MEAN PLT VOLUME 9.9 fl (7.5-11.1); MONO % 16.1 % (3.8-10.2); NEUT % 51.2 % (42.8-82.8); PLATELET COUNT 66 K/MM3 (134-434); RBC 2.95 M/mm3 (3.60-5.2); RDW 20.7 % (11.6-15.6)
[2020-11-11 08:06] LABS: CALCIUM 7.8 mg/dL (8.5-10.1)
[2020-11-11 08:07] LABS: ALBUMIN 1.9 g/dl (3.4-5.0); BLOOD UREA NITROGEN 5.4 mg/dL (7-18)
[2020-11-11 08:10] LABS: CREATININE 0.7 mg/dL (0.55-1.3)
[2020-11-11 08:12] LABS: BILIRUBIN,TOTAL 1.5 mg/dL (0.2-1); TOT PROT 7.2 g/dl (6.4-8.2)
[2020-11-11 08:25] LABS: WHITE BLOOD COUNT 2.9 K/mm3 (4.0-10.0)
[2020-11-11] MEDS ORDERED: PT OWN MED DRAWER 7, Y5N ONE (09:09)
[2020-11-11] MEDS: PANTOPRAZOLE 40 MG TABLET PO SCH (09:49)
[2020-11-11] MEDS: valACYclovir HCL 500 MG TABLET (FP) PO SCH (09:49)
[2020-11-11] MEDS: BICTEGRAV/EMTRICIT/TENOFOV (BIKTARVY) 50-200-25 MG TABLET PO SCH (09:50)
[2020-11-11] MEDS: TIOTROPIUM BROMIDE 2.5 MCG (SPIRIVA) RESPIMAT INHALER IH SCH (09:50)
[2020-11-11] MEDS: ATOVAQUONE 750 MG/5 ML (UNIT-DOSE PACKAGING) PO SCH (09:50)
[2020-11-11 10:16] LABS: PLATELET ESTIMATE DECREASED
[2020-11-12] MEDS: CEFAZOLIN 2 GM/D5W 2 GM/50 ML ML IVPB SCH ×3 (02:33→17:16)
[2020-11-12] MEDS: oxyCODONE HCL 5 MG TABLET PO PRN ×4 (02:39→21:24)
[2020-11-12 07:46] LABS: INR 1.28 (0.83-1.09); PROTHROMBIN TIME (PATIENT) 15.4 SEC (9.7-13.0)
[2020-11-12 07:49] LABS: BASO % 0.2 % (0-2.0); EOS % 6.1 % (0-4.5); HEMATOCRIT 27.1 % (32.4-45.2); HEMOGLOBIN 8.6 GM/dL (10.7-15.3); LYMPH % 32.3 % (8-40); MCH 29.5 pg (25.7-33.7); MCHC 31.7 g/dl (32.0-36.0); MEAN PLT VOLUME 9.7 fl (7.5-11.1); NEUT % 46.4 % (42.8-82.8); PLATELET COUNT 64 K/MM3 (134-434); RBC 2.91 M/mm3 (3.60-5.2); RDW 20.1 % (11.6-15.6); WHITE BLOOD COUNT 2.8 K/mm3 (4.0-10.0)
[2020-11-12 08:06] LABS: ALBUMIN 1.9 g/dl (3.4-5.0); CALCIUM 7.5 mg/dL (8.5-10.1)
[2020-11-12 08:07] LABS: MAGNESIUM 1.8 mg/dL (1.8-2.4)
[2020-11-12 08:09] LABS: CREATININE 0.7 mg/dL (0.55-1.3)
[2020-11-12 08:10] LABS: BILIRUBIN,TOTAL 1.7 mg/dL (0.2-1); PHOSPHOROUS 2.1 mg/dL (2.5-4.9); TOT PROT 6.8 g/dl (6.4-8.2)
[2020-11-12] MEDS ORDERED: PT OWN MED DRAWER 7, Y5N ONE (09:01)
[2020-11-12] MEDS: valACYclovir HCL 500 MG TABLET (FP) PO SCH (09:13)
[2020-11-12] MEDS: ATOVAQUONE 750 MG/5 ML (UNIT-DOSE PACKAGING) PO SCH (09:14)
[2020-11-12] MEDS: BICTEGRAV/EMTRICIT/TENOFOV (BIKTARVY) 50-200-25 MG TABLET PO SCH (09:15)
[2020-11-12] MEDS: TIOTROPIUM BROMIDE 2.5 MCG (SPIRIVA) RESPIMAT INHALER IH SCH (09:16)
[2020-11-12] MEDS ORDERED: SPIRONOLACTONE 25 MG TABLET PO ONE (10:30)
[2020-11-12] MEDS ORDERED: FUROSEMIDE 20 MG TABLET (FP) PO ONE (10:30)
[2020-11-12] MEDS ORDERED: NAPH,MB-DB/K PH,MBDB POWDER PACKET PO ONE (14:03)
[2020-11-13] MEDS ORDERED: ALBUTEROL SO4 HFA INHALER IH PRN (01:04)
[2020-11-13] MEDS ORDERED: ARTIFICIAL TEARS (POLYVINYL ALCOHOL) OPTH DROPS OU PRN (01:04)
[2020-11-13] MEDS ORDERED: SENNOSIDES 8.6MG TABLET (FP) PO PRN (01:04)
[2020-11-13] MEDS: CEFAZOLIN 2 GM/D5W 2 GM/50 ML ML IVPB SCH ×3 (02:08→17:44)
[2020-11-13] MEDS: oxyCODONE HCL 5 MG TABLET PO PRN ×2 (02:08→07:59)
[2020-11-13] MEDS ORDERED: PT OWN MED DRAWER 7, Y5N ONE (08:31)
[2020-11-13 08:44] LABS: HEMATOCRIT 28.7 % (32.4-45.2); HEMOGLOBIN 9.2 GM/dL (10.7-15.3); MCH 29.3 pg (25.7-33.7); MCHC 31.9 g/dl (32.0-36.0); MEAN CELL VOLUME 91.6 fl (80-96); PLATELET COUNT 76 K/MM3 (134-434); RBC 3.13 M/mm3 (3.60-5.2); RDW 20.4 % (11.6-15.6); WHITE BLOOD COUNT 3.1 K/mm3 (4.0-10.0)
[2020-11-13] MEDS: ATOVAQUONE 750 MG/5 ML (UNIT-DOSE PACKAGING) PO SCH (08:52)
[2020-11-13 09:21] LABS: CALCIUM 7.9 mg/dL (8.5-10.1); MAGNESIUM 1.8 mg/dL (1.8-2.4)
[2020-11-13 09:25] LABS: PHOSPHOROUS 2.2 mg/dL (2.5-4.9)
[2020-11-13 09:27] LABS: CREATININE 0.7 mg/dL (0.55-1.3)
[2020-11-13] MEDS: BICTEGRAV/EMTRICIT/TENOFOV (BIKTARVY) 50-200-25 MG TABLET PO SCH (09:37)
[2020-11-13] MEDS: valACYclovir HCL 500 MG TABLET (FP) PO SCH (09:37)
[2020-11-13] MEDS: TIOTROPIUM BROMIDE 2.5 MCG (SPIRIVA) RESPIMAT INHALER IH SCH (09:38)
[2020-11-13] MEDS ORDERED: NAPH,MB-DB/K PH,MBDB POWDER PACKET PO ONE (09:44)
[2020-11-13] MEDS ORDERED: oxyCODONE HCL 5 MG TABLET PO PRN (10:23)
[2020-11-13] MEDS ORDERED: oxyCODONE HCL 5 MG TABLET PO SCH (10:30)
[2020-11-13] MEDS: SPIRONOLACTONE 25 MG TABLET PO SCH (10:56)
[2020-11-13] MEDS: FUROSEMIDE 20 MG TABLET (FP) PO SCH (10:56)
[2020-11-13] MEDS: oxyCODONE HCL 5 MG TABLET PO SCH ×3 (11:52→20:50)
[2020-11-14] MEDS: CEFAZOLIN 2 GM/D5W 2 GM/50 ML ML IVPB SCH ×3 (02:47→17:10)
[2020-11-14] MEDS: oxyCODONE HCL 5 MG TABLET PO SCH ×6 (04:24→20:57)
[2020-11-14] MEDS ORDERED: NAPH,MB-DB/K PH,MBDB POWDER PACKET PO ONE (07:47)
[2020-11-14 08:29] LABS: BASO % 0.4 % (0-2.0); EOS % 6.6 % (0-4.5); HEMATOCRIT 27.2 % (32.4-45.2); HEMOGLOBIN 8.6 GM/dL (10.7-15.3); LYMPH % 33.1 % (8-40); MCH 29.5 pg (25.7-33.7); MCHC 31.6 g/dl (32.0-36.0); MEAN CELL VOLUME 93.3 fl (80-96); MEAN PLT VOLUME 9.2 fl (7.5-11.1); MONO % 13.2 % (3.8-10.2); NEUT % 46.7 % (42.8-82.8); PLATELET COUNT 64 K/MM3 (134-434); RBC 2.92 M/mm3 (3.60-5.2); RDW 20.4 % (11.6-15.6)
[2020-11-14 08:44] LABS: CALCIUM 8.5 mg/dL (8.5-10.1)
[2020-11-14 08:45] LABS: BLOOD UREA NITROGEN 7.2 mg/dL (7-18); MAGNESIUM 1.9 mg/dL (1.8-2.4)
[2020-11-14 08:48] LABS: CREATININE 0.8 mg/dL (0.55-1.3); PHOSPHOROUS 3.1 mg/dL (2.5-4.9)
[2020-11-14 08:49] LABS: BILIRUBIN,TOTAL 1.5 mg/dL (0.2-1); TOT PROT 7.3 g/dl (6.4-8.2)
[2020-11-14] MEDS ORDERED: PT OWN MED DRAWER 7, Y5N ONE ×2 (08:59→17:01)
[2020-11-14] MEDS: SPIRONOLACTONE 25 MG TABLET PO SCH (13:30)
[2020-11-14] MEDS: BICTEGRAV/EMTRICIT/TENOFOV (BIKTARVY) 50-200-25 MG TABLET PO SCH (13:30)
[2020-11-14] MEDS: valACYclovir HCL 500 MG TABLET (FP) PO SCH (13:30)
[2020-11-14] MEDS: FUROSEMIDE 20 MG TABLET (FP) PO SCH (13:30)
[2020-11-14] MEDS: ATOVAQUONE 750 MG/5 ML (UNIT-DOSE PACKAGING) PO SCH (13:30)
[2020-11-14] MEDS: TIOTROPIUM BROMIDE 2.5 MCG (SPIRIVA) RESPIMAT INHALER IH SCH (15:09)
[2020-11-14] MEDS ORDERED: POLYETHYLENE GLYCOL 3350 119 GM BTL PO ONE (15:34)
[2020-11-14 17:48] LABS: BF WBC & OTHER NUCLEATED CELLS 221 /mm3
[2020-11-14 18:43] LABS: BODY FLUID MACROPHAGES 63 %
[2020-11-15] MEDS: oxyCODONE HCL 5 MG TABLET PO SCH ×3 (00:12→08:04)
[2020-11-15] MEDS: CEFAZOLIN 2 GM/D5W 2 GM/50 ML ML IVPB SCH ×2 (02:00→09:37)
[2020-11-15] MEDS ORDERED: PT OWN MED DRAWER 7, Y5N ONE ×2 (08:01→09:19)
[2020-11-15] MEDS: ATOVAQUONE 750 MG/5 ML (UNIT-DOSE PACKAGING) PO SCH (08:05)
[2020-11-15 08:51] LABS: BLOOD UREA NITROGEN 9.8 mg/dL (7-18); CALCIUM 8.2 mg/dL (8.5-10.1)
[2020-11-15 08:52] LABS: MAGNESIUM 1.9 mg/dL (1.8-2.4)
[2020-11-15 08:53] LABS: BASO % 0.8 % (0-2.0); EOS % 7.7 % (0-4.5); HEMATOCRIT 28.3 % (32.4-45.2); LYMPH % 28.7 % (8-40); MCH 29.4 pg (25.7-33.7); MCHC 31.8 g/dl (32.0-36.0); MEAN CELL VOLUME 92.7 fl (80-96); MEAN PLT VOLUME 9.8 fl (7.5-11.1); MONO % 13.6 % (3.8-10.2); NEUT % 49.2 % (42.8-82.8); PLATELET COUNT 74 K/MM3 (134-434); RBC 3.05 M/mm3 (3.60-5.2); RDW 20.5 % (11.6-15.6); WHITE BLOOD COUNT 2.9 K/mm3 (4.0-10.0)
[2020-11-15 08:55] LABS: CREATININE 0.8 mg/dL (0.55-1.3); PHOSPHOROUS 2.5 mg/dL (2.5-4.9)
[2020-11-15 08:56] LABS: BILIRUBIN,TOTAL 1.5 mg/dL (0.2-1); TOT PROT 7.8 g/dl (6.4-8.2)
[2020-11-15] MEDS: FUROSEMIDE 20 MG TABLET (FP) PO SCH (09:37)
[2020-11-15] MEDS: TIOTROPIUM BROMIDE 2.5 MCG (SPIRIVA) RESPIMAT INHALER IH SCH (09:37)
[2020-11-15] MEDS: SPIRONOLACTONE 25 MG TABLET PO SCH (09:37)
[2020-11-15] MEDS: valACYclovir HCL 500 MG TABLET (FP) PO SCH (09:38)
[2020-11-15] MEDS: BICTEGRAV/EMTRICIT/TENOFOV (BIKTARVY) 50-200-25 MG TABLET PO SCH (09:38)
[2020-11-15 10:27] LABS: ANISOCYTOSIS 1+; MACROCYTOSIS 1+; PLATELET ESTIMATE DECREASED
[2020-11-15] MEDS: oxyCODONE HCL 5 MG TABLET PO PRN ×3 (13:25→22:26)
[2020-11-16] MEDS: oxyCODONE HCL 5 MG TABLET PO PRN ×4 (04:29→23:09)
[2020-11-16] MEDS ORDERED: PT OWN MED DRAWER 7, Y5N ONE (09:15)
[2020-11-16] MEDS: ATOVAQUONE 750 MG/5 ML (UNIT-DOSE PACKAGING) PO SCH (09:19)
[2020-11-16] MEDS: SPIRONOLACTONE 25 MG TABLET PO SCH (09:20)
[2020-11-16] MEDS: CIPROFLOXACIN 500 MG TABLET (RESTRICTED TO ID) PO SCH (09:21)
[2020-11-16] MEDS: BICTEGRAV/EMTRICIT/TENOFOV (BIKTARVY) 50-200-25 MG TABLET PO SCH (09:21)
[2020-11-16] MEDS: valACYclovir HCL 500 MG TABLET (FP) PO SCH (09:21)
[2020-11-16] MEDS: FUROSEMIDE 20 MG TABLET (FP) PO SCH (09:21)
[2020-11-16] MEDS: TIOTROPIUM BROMIDE 2.5 MCG (SPIRIVA) RESPIMAT INHALER IH SCH (09:25)
[2020-11-16 09:35] LABS: BLOOD UREA NITROGEN 9.4 mg/dL (7-18); CALCIUM 8.3 mg/dL (8.5-10.1); MAGNESIUM 1.8 mg/dL (1.8-2.4)
[2020-11-16 09:38] LABS: CREATININE 0.7 mg/dL (0.55-1.3); PHOSPHOROUS 2.5 mg/dL (2.5-4.9)
[2020-11-16 09:39] LABS: BILIRUBIN,TOTAL 1.7 mg/dL (0.2-1); TOT PROT 7.8 g/dl (6.4-8.2)
[2020-11-16 09:58] LABS: EOS % 4.9 % (0-4.5); HEMATOCRIT 30.2 % (32.4-45.2); HEMOGLOBIN 9.6 GM/dL (10.7-15.3); LYMPH % 25.7 % (8-40); MCH 29.4 pg (25.7-33.7); MCHC 31.9 g/dl (32.0-36.0); MEAN CELL VOLUME 92.1 fl (80-96); MEAN PLT VOLUME 9.7 fl (7.5-11.1); MONO % 12.3 % (3.8-10.2); NEUT % 57.1 % (42.8-82.8); PLATELET COUNT 78 K/MM3 (134-434); RBC 3.28 M/mm3 (3.60-5.2); RDW 20.1 % (11.6-15.6); WHITE BLOOD COUNT 3.5 K/mm3 (4.0-10.0)
[2020-11-16 11:28] LABS: ANISOCYTOSIS 1+; MACROCYTOSIS 1+; PLATELET ESTIMATE DECREASED
[2020-11-17] MEDS: oxyCODONE HCL 5 MG TABLET PO PRN ×3 (04:17→20:49)
[2020-11-17] MEDS ORDERED: PT OWN MED DRAWER 7, Y5N ONE ×2 (08:38→09:18)
[2020-11-17] MEDS: ATOVAQUONE 750 MG/5 ML (UNIT-DOSE PACKAGING) PO SCH (09:01)
[2020-11-17] MEDS: FUROSEMIDE 20 MG TABLET (FP) PO SCH (09:47)
[2020-11-17] MEDS: SPIRONOLACTONE 25 MG TABLET PO SCH (09:47)
[2020-11-17] MEDS: valACYclovir HCL 500 MG TABLET (FP) PO SCH (09:47)
[2020-11-17] MEDS: CIPROFLOXACIN 500 MG TABLET (RESTRICTED TO ID) PO SCH (09:48)
[2020-11-17] MEDS: BICTEGRAV/EMTRICIT/TENOFOV (BIKTARVY) 50-200-25 MG TABLET PO SCH (09:48)
[2020-11-17] MEDS: TIOTROPIUM BROMIDE 2.5 MCG (SPIRIVA) RESPIMAT INHALER IH SCH (09:49)
[2020-11-17 10:01] LABS: BASO % 0.5 % (0-2.0); EOS % 6.5 % (0-4.5); HEMATOCRIT 29.1 % (32.4-45.2); HEMOGLOBIN 9.3 GM/dL (10.7-15.3); MCH 29.5 pg (25.7-33.7); MEAN CELL VOLUME 92.2 fl (80-96); MEAN PLT VOLUME 9.9 fl (7.5-11.1); MONO % 10.6 % (3.8-10.2); NEUT % 52.4 % (42.8-82.8); PLATELET COUNT 95 K/MM3 (134-434); RBC 3.15 M/mm3 (3.60-5.2); RDW 20.2 % (11.6-15.6); WHITE BLOOD COUNT 3.5 K/mm3 (4.0-10.0)
[2020-11-17 10:11] LABS: CALCIUM 8.2 mg/dL (8.5-10.1)
[2020-11-17 10:13] LABS: BLOOD UREA NITROGEN 9.9 mg/dL (7-18)
[2020-11-17 10:16] LABS: BILIRUBIN,TOTAL 1.9 mg/dL (0.2-1); CREATININE 0.8 mg/dL (0.55-1.3); TOT PROT 7.9 g/dl (6.4-8.2)
[2020-11-18 00:06] LABS: BODY FLUID ALBUMIN 0.5 g/dL (Not Estab.)
[2020-11-18] MEDS: oxyCODONE HCL 5 MG TABLET PO PRN ×4 (06:43→22:00)
[2020-11-18] MEDS ORDERED: PT OWN MED DRAWER 7, Y5N ONE ×3 (07:57→10:16)
[2020-11-18] MEDS: ATOVAQUONE 750 MG/5 ML (UNIT-DOSE PACKAGING) PO SCH (08:46)
[2020-11-18 08:54] LABS: BASO % 0.4 % (0-2.0); EOS % 5.4 % (0-4.5); HEMATOCRIT 27.2 % (32.4-45.2); HEMOGLOBIN 8.7 GM/dL (10.7-15.3); LYMPH % 22.8 % (8-40); MCH 29.5 pg (25.7-33.7); MEAN CELL VOLUME 92.1 fl (80-96); MEAN PLT VOLUME 9.8 fl (7.5-11.1); MONO % 12.8 % (3.8-10.2); NEUT % 58.6 % (42.8-82.8); PLATELET COUNT 88 K/MM3 (134-434); RBC 2.96 M/mm3 (3.60-5.2); RDW 20.2 % (11.6-15.6); WHITE BLOOD COUNT 3.7 K/mm3 (4.0-10.0)
[2020-11-18 09:12] LABS: ALBUMIN 1.9 g/dl (3.4-5.0)
[2020-11-18 09:13] LABS: BLOOD UREA NITROGEN 10.2 mg/dL (7-18); MAGNESIUM 1.7 mg/dL (1.8-2.4)
[2020-11-18 09:16] LABS: CREATININE 0.7 mg/dL (0.55-1.3); PHOSPHOROUS 2.7 mg/dL (2.5-4.9)
[2020-11-18 09:17] LABS: BILIRUBIN,TOTAL 1.9 mg/dL (0.2-1); TOT PROT 7.2 g/dl (6.4-8.2)
[2020-11-18] MEDS: FUROSEMIDE 20 MG TABLET (FP) PO SCH (10:18)
[2020-11-18] MEDS: valACYclovir HCL 500 MG TABLET (FP) PO SCH (10:18)
[2020-11-18] MEDS: SPIRONOLACTONE 25 MG TABLET PO SCH (10:18)
[2020-11-18] MEDS: CIPROFLOXACIN 500 MG TABLET (RESTRICTED TO ID) PO SCH (10:19)
[2020-11-18] MEDS: TIOTROPIUM BROMIDE 2.5 MCG (SPIRIVA) RESPIMAT INHALER IH SCH (10:19)
[2020-11-18] MEDS: BICTEGRAV/EMTRICIT/TENOFOV (BIKTARVY) 50-200-25 MG TABLET PO SCH (10:19)
[2020-11-18] MEDS ORDERED: MAGNESIUM 2GM/50ML STERILE WATER IVPB IVPB ONE (13:30)
[2020-11-19] MEDS: oxyCODONE HCL 5 MG TABLET PO PRN ×5 (02:25→23:40)
[2020-11-19] MEDS ORDERED: PT OWN MED DRAWER 7, Y5N ONE ×3 (05:55→09:14)
[2020-11-19 08:47] LABS: EOS % 5.1 % (0-4.5); HEMATOCRIT 26.3 % (32.4-45.2); HEMOGLOBIN 8.6 GM/dL (10.7-15.3); LYMPH % 24.4 % (8-40); MCH 29.7 pg (25.7-33.7); MCHC 32.5 g/dl (32.0-36.0); MEAN CELL VOLUME 91.4 fl (80-96); MEAN PLT VOLUME 8.8 fl (7.5-11.1); NEUT % 55.5 % (42.8-82.8); PLATELET COUNT 84 K/MM3 (134-434); RBC 2.88 M/mm3 (3.60-5.2); RDW 20.1 % (11.6-15.6); WHITE BLOOD COUNT 3.7 K/mm3 (4.0-10.0)
[2020-11-19 09:18] LABS: CALCIUM 8.1 mg/dL (8.5-10.1)
[2020-11-19 09:19] LABS: ALBUMIN 1.9 g/dl (3.4-5.0); BLOOD UREA NITROGEN 9.7 mg/dL (7-18)
[2020-11-19 09:21] LABS: CREATININE 0.8 mg/dL (0.55-1.3)
[2020-11-19 09:24] LABS: BILIRUBIN,TOTAL 1.7 mg/dL (0.2-1); TOT PROT 7.4 g/dl (6.4-8.2)
[2020-11-19] MEDS: ATOVAQUONE 750 MG/5 ML (UNIT-DOSE PACKAGING) PO SCH (09:35)
[2020-11-19] MEDS: FUROSEMIDE 40 MG TABLET (FP) PO SCH (09:35)
[2020-11-19] MEDS: valACYclovir HCL 500 MG TABLET (FP) PO SCH (09:35)
[2020-11-19] MEDS: SPIRONOLACTONE 25 MG TABLET PO SCH (09:35)
[2020-11-19] MEDS: CIPROFLOXACIN 500 MG TABLET (RESTRICTED TO ID) PO SCH (09:37)
[2020-11-19] MEDS: BICTEGRAV/EMTRICIT/TENOFOV (BIKTARVY) 50-200-25 MG TABLET PO SCH (09:37)
[2020-11-19] MEDS: TIOTROPIUM BROMIDE 2.5 MCG (SPIRIVA) RESPIMAT INHALER IH SCH (09:38)
[2020-11-19] MEDS ORDERED: LACTULOSE 20 GM/30 ML UDC (FOR ORAL USE ONLY) PO ONE (13:47)
[2020-11-20] MEDS ORDERED: PT OWN MED DRAWER 7, Y5N ONE (09:19)
[2020-11-20 09:27] LABS: BASO % 0.8 % (0-2.0); EOS % 4.2 % (0-4.5); HEMATOCRIT 27.1 % (32.4-45.2); HEMOGLOBIN 8.8 GM/dL (10.7-15.3); LYMPH % 26.1 % (8-40); MCH 29.4 pg (25.7-33.7); MCHC 32.3 g/dl (32.0-36.0); MEAN PLT VOLUME 9.2 fl (7.5-11.1); MONO % 12.8 % (3.8-10.2); NEUT % 56.1 % (42.8-82.8); PLATELET COUNT 95 K/MM3 (134-434); RBC 2.98 M/mm3 (3.60-5.2); RDW 19.5 % (11.6-15.6); WHITE BLOOD COUNT 3.2 K/mm3 (4.0-10.0)
[2020-11-20] MEDS: BICTEGRAV/EMTRICIT/TENOFOV (BIKTARVY) 50-200-25 MG TABLET PO SCH (09:57)
[2020-11-20] MEDS: CIPROFLOXACIN 500 MG TABLET (RESTRICTED TO ID) PO SCH (09:57)
[2020-11-20] MEDS: ATOVAQUONE 750 MG/5 ML (UNIT-DOSE PACKAGING) PO SCH (09:57)
[2020-11-20] MEDS: TIOTROPIUM BROMIDE 2.5 MCG (SPIRIVA) RESPIMAT INHALER IH SCH (09:57)
[2020-11-20] MEDS: valACYclovir HCL 500 MG TABLET (FP) PO SCH (09:58)
[2020-11-20] MEDS: oxyCODONE HCL 5 MG TABLET PO PRN ×3 (09:58→22:09)
[2020-11-20 10:08] LABS: ALBUMIN 1.9 g/dl (3.4-5.0); CALCIUM 8.1 mg/dL (8.5-10.1)
[2020-11-20 10:09] LABS: MAGNESIUM 1.8 mg/dL (1.8-2.4)
[2020-11-20 10:11] LABS: BILIRUBIN,TOTAL 1.7 mg/dL (0.2-1); CREATININE 0.8 mg/dL (0.55-1.3); TOT PROT 7.6 g/dl (6.4-8.2)
[2020-11-20 10:12] LABS: BLOOD UREA NITROGEN 10.2 mg/dL (7-18)
[2020-11-20] MEDS: FUROSEMIDE 40 MG TABLET (FP) PO SCH (12:14)
[2020-11-20] MEDS: SPIRONOLACTONE 25 MG TABLET PO SCH (12:14)
[2020-11-21 06:06] VITALS: BP 92/58; PULSE 79; TEMP 98.3
[2020-11-21] MEDS: oxyCODONE HCL 5 MG TABLET PO PRN (07:23)
[2020-11-21] MEDS ORDERED: PT OWN MED DRAWER 7, Y5N ONE (09:59)
[2020-11-21] MEDS: ATOVAQUONE 750 MG/5 ML (UNIT-DOSE PACKAGING) PO SCH (10:52)
[2020-11-21] MEDS: CIPROFLOXACIN 500 MG TABLET (RESTRICTED TO ID) PO SCH (10:52)
[2020-11-21] MEDS: valACYclovir HCL 500 MG TABLET (FP) PO SCH (10:52)
[2020-11-21] MEDS: TIOTROPIUM BROMIDE 2.5 MCG (SPIRIVA) RESPIMAT INHALER IH SCH (10:53)
[2020-11-21] MEDS: BICTEGRAV/EMTRICIT/TENOFOV (BIKTARVY) 50-200-25 MG TABLET PO SCH (10:53)
[2020-11-21] MEDS: SPIRONOLACTONE 25 MG TABLET PO SCH (11:23)
[2020-11-21] MEDS: FUROSEMIDE 40 MG TABLET (FP) PO SCH (11:23)
== END 2020-11-21 13:31 | disposition home health service (06) | DRG 974 ==
LOC: JER 09:14 → JERBED 17:27 → J8W 11-06 06:51 → J4S 11-07 00:13 → J6S 11-13 01:03
PROVIDERS: ADMIT Internal Medicine; ATTEND Internal Medicine
PROC: 0W9G3ZX Drainage of Peritoneal Cavity, Percutaneous Approach, Diagnostic (ICD-10-PCS; principal; 2020-11-06)
PROC: 0W9G3ZX Drainage of Peritoneal Cavity, Percutaneous Approach, Diagnostic (ICD-10-PCS; 2020-11-14)
DX: A41.51 Sepsis due to Escherichia coli [E. coli] (principal); K65.2 Spontaneous bacterial peritonitis; B20 Human immunodeficiency virus [HIV] disease; E43 Unspecified severe protein-calorie malnutrition; C20 Malignant neoplasm of rectum; C78.7 Secondary malignant neoplasm of liver and intrahepatic bile duct; E87.2 Acidosis; R18.8 Other ascites; B44.1 Other pulmonary aspergillosis; J44.9 Chronic obstructive pulmonary disease, unspecified; R65.20 Severe sepsis without septic shock; K74.60 Unspecified cirrhosis of liver; R16.1 Splenomegaly, not elsewhere classified; G51.0 Bell's palsy; D86.9 Sarcoidosis, unspecified; G89.4 Chronic pain syndrome; R74.01 Elevation of levels of liver transaminase levels; D64.9 Anemia, unspecified
CPT/HCPCS: 36415; 71045-TC-FY; 71046-TC-FY; 74018-TC-FY; 74177-TC; 76705-TC; 76942-TC; 80048; 80053; 81003; 82042; 82150; 82465; 82728; 82945; 82962; 83540; 83550; 83605; 83615; 83735; 83880; 83986; 84100; 84157; 84466; 84478; 84484; 85025; 85027; 85045; 85610; 85730; 87040; 87070; 87075; 87086; 87102; 87116; 87186; 87205; 87206; 87210; 88108; 88305-TC; 93005; 93010; 93306-TC; 94010; 97116-GP; 97162-GP; 99285-25; C9803; J0131; U0003; U0005

== ENCOUNTER 2021-04-18 00:34 | Inpatient (IN) | payer OTHER ==
[2021-04-18 00:50] VITALS: BMI 19.2
[2021-04-18] MEDS ORDERED: SODIUM CHLORIDE 1,769 ML IV ONE (01:00)
[2021-04-18] MEDS ORDERED: ACETAMINOPHEN 1000 MG/100 ML VIAL (NON FORMULARY) IVPB ONE (01:05)
[2021-04-18] MEDS ORDERED: ACETAMINOPHEN INJECTION 100 ML IVPB ONE (01:42)
[2021-04-18 02:10] LABS: BASO % 0.6 % (0-2.0); EOS % 3.6 % (0-4.5); HEMATOCRIT 28.3 % (32.4-45.2); HEMOGLOBIN 9.6 GM/dL (10.7-15.3); INR 1.53 (0.83-1.09); LYMPH % 14.8 % (8-40); MCH 33.7 pg (25.7-33.7); MEAN CELL VOLUME 99.1 fl (80-96); MEAN PLT VOLUME 8.9 fl (7.5-11.1); MONO % 17.2 % (3.8-10.2); NEUT % 63.8 % (42.8-82.8); PLATELET COUNT 64 10^3/uL (134-434); PROTHROMBIN TIME (PATIENT) 18.3 SEC (9.7-13.0); RBC 2.86 M/mm3 (3.60-5.2); RDW 18.4 % (11.6-15.6); WHITE BLOOD COUNT 4.9 K/mm3 (4.0-10.0)
[2021-04-18 02:13] LABS: ACTIVATED PTT 37.8 SECONDS (25.2-36.5)
[2021-04-18] MEDS ORDERED: KETOROLAC TROMETHAMINE 30 MG/1 ML VIAL IM ONE (02:15)
[2021-04-18 02:18] LABS: CHLORIDE 102 mmol/L (98-107); SODIUM 132 mmol/L (136-145)
[2021-04-18 02:21] LABS: ANION GAP 3 MMOL/L (8-16); BLOOD UREA NITROGEN 23.3 mg/dL (7-18); CO2 27 mmol/L (21-32); GLUCOSE,RANDOM 98 mg/dL (74-106)
[2021-04-18] MEDS ORDERED: KETOROLAC TROMETHAMINE 30 MG/1 ML VIAL ONE (02:23)
[2021-04-18 02:24] LABS: CREATININE 1.4 mg/dL (0.55-1.3); SGOT/AST 173 U/L (15-37); SGPT/ALT 32 U/L (13-61)
[2021-04-18 02:25] LABS: BILIRUBIN,TOTAL 7.2 mg/dL (0.2-1)
[2021-04-18 02:26] LABS: TOT PROT 7.8 g/dl (6.4-8.2)
[2021-04-18 02:27] LABS: ALK PHOS 134 U/L (45-117)
[2021-04-18] MEDS ORDERED: morphine CARPU-JECT 4 MG/1 ML DISP.SYRIN IVPUSH ONE (03:15)
[2021-04-18] MEDS ORDERED: morphine SULFATE 4 MG/ML VIAL ONE (03:26)
[2021-04-18 03:59] LABS: PH,URINE 6.5 (5.0-8.0); URINE APPEARANCE Slightly Cloudy; URINE BILIRUBIN 3+ (NEGATIVE); URINE COLOR Other; URINE GLUCOSE (UA) Trace (NEGATIVE); URINE KETONE 1+ (NEGATIVE); URINE LEUK ESTERASE 3+ (NEGATIVE); URINE NITRITE Positive (NEGATIVE); URINE PROTEIN 3+ (NEGATIVE); URINE UROBILINOGEN 4.0 E.U/dl mg/dL (0.2-1.0)
[2021-04-18] MEDS ORDERED: ACETAMINOPHEN 1000 MG/100 ML VIAL (NON FORMULARY) IVPB PRN (04:37)
[2021-04-18] MEDS ORDERED: SODIUM CHLORIDE 1,000 ML IV SCH (04:45)
[2021-04-18] MEDS ORDERED: ALBUTEROL SO4 2.5/IPRATROPIUM 0.5 INH SOL 3 ML VIAL.NEB. NEB PRN (05:58)
[2021-04-18] MEDS ORDERED: CEFTRIAXONE 1 GM/50 ML BAG ONE (06:04)
[2021-04-18] MEDS ORDERED: methylPREDNISolone NA SUCC 40 MG/1 ML VIAL IVPUSH SCH (06:15)
[2021-04-18 07:29] LABS: VENOUS BASE EXCESS -3.9 mmol/L (-2-2); VENOUS O2 SATURATION 48.8 % (70-80); VENOUS PCO2 54.3 mmHg (38-52); VENOUS PH 7.254 (7.310-7.410)
[2021-04-18] MEDS ORDERED: methylPREDNISolone NA SUCC 40 MG/1 ML VIAL ONE (07:37)
[2021-04-18] MEDS: ERTAPENEM SODIUM 1 GM in SODIUM CHLORIDE 50 ML IVPB SCH (07:50)
[2021-04-18 08:11] LABS: HYALINE CASTS 24.7 /uL (0-3.1); URINE APPEARANCE TURBID; URINE BACTERIA 2.7 /uL (0-1359); URINE WBC 10.8 /uL (0-25.8)
[2021-04-18 08:13] LABS: URINE COLOR YELLOW
[2021-04-18 09:25] LABS: BASO % 0.5 % (0-2.0); EOS % 2.9 % (0-4.5); HEMATOCRIT 28.9 % (32.4-45.2); HEMOGLOBIN 9.7 GM/dL (10.7-15.3); LYMPH % 16.1 % (8-40); MCH 34.4 pg (25.7-33.7); MCHC 33.6 g/dl (32.0-36.0); MEAN CELL VOLUME 102.2 fl (80-96); MEAN PLT VOLUME 9.2 fl (7.5-11.1); MONO % 16.4 % (3.8-10.2); NEUT % 64.1 % (42.8-82.8); PLATELET COUNT 64 10^3/uL (134-434); RBC 2.82 M/mm3 (3.60-5.2); RDW 18.5 % (11.6-15.6); WHITE BLOOD COUNT 3.5 K/mm3 (4.0-10.0)
[2021-04-18 09:41] LABS: ARTERIAL BLD GAS O2 SATURATION 90.5 % (95-98); ARTERIAL BLOOD GAS BASE EXCESS -4.2 mmol/L (-2-2); ARTERIAL BLOOD GAS PO2 61.5 mmHg (80-100); ARTERIAL BLOOD GAS pH 7.347 (7.350-7.450)
[2021-04-18 09:49] LABS: IRON SERUM 127 ug/dL (50-175); TOTAL IRON BINDING CAPACITY 222 ug/dL (250-450)
[2021-04-18 10:20] LABS: ALBUMIN 1.9 g/dl (3.4-5.0); BILIRUBIN,TOTAL 7.3 mg/dL (0.2-1); BLOOD UREA NITROGEN 25.5 mg/dL (7-18); CREATININE 1.5 mg/dL (0.55-1.3); PHOSPHOROUS 3.6 mg/dL (2.5-4.9); TOT PROT 7.5 g/dl (6.4-8.2)
[2021-04-18] MEDS ORDERED: MORPHINE SULFATE 2 MG/ML VIAL ONE ×2 (11:53→21:02)
[2021-04-18] MEDS: MORPHINE SULFATE 2 MG/ML VIAL IM PRN ×2 (12:06→21:12)
[2021-04-18] MEDS: ALBUTEROL SO4 2.5/IPRATROPIUM 0.5 INH SOL 3 ML VIAL.NEB. NEB SCH ×4 (13:45→18:18)
[2021-04-18] MEDS ORDERED: ALBUTEROL SO4 HFA INHALER IH PRN (14:58)
[2021-04-18] MEDS: ALBUMIN HUMAN 25% 12.5 GM/50 ML VIAL IVPB SCH (18:45)
[2021-04-18] MEDS ORDERED: oxyCODONE HCL 5 MG TABLET ONE (18:47)
[2021-04-18] MEDS: oxyCODONE HCL 5 MG TABLET PO PRN (18:52)
[2021-04-19] MEDS: PHENAZOPYRIDINE HCL 100 MG TABLET (FP) PO SCH ×4 (00:16→17:47)
[2021-04-19] MEDS: ALBUMIN HUMAN 25% 12.5 GM/50 ML VIAL IVPB SCH ×3 (00:17→22:21)
[2021-04-19] MEDS: ERTAPENEM SODIUM 1 GM in SODIUM CHLORIDE 50 ML IVPB SCH (06:30)
[2021-04-19] MEDS: MORPHINE SULFATE 2 MG/ML VIAL IM PRN (06:50)
[2021-04-19 09:12] LABS: BASO % 0.1 % (0-2.0); EOS % 0.1 % (0-4.5); HEMATOCRIT 22.3 % (32.4-45.2); HEMOGLOBIN 7.6 GM/dL (10.7-15.3); MCH 35.1 pg (25.7-33.7); MCHC 34.3 g/dl (32.0-36.0); MEAN CELL VOLUME 102.5 fl (80-96); MEAN PLT VOLUME 10.2 fl (7.5-11.1); MONO % 8.2 % (3.8-10.2); NEUT % 76.6 % (42.8-82.8); PLATELET COUNT 40 10^3/uL (134-434); RBC 2.17 M/mm3 (3.60-5.2); RDW 18.6 % (11.6-15.6)
[2021-04-19 09:18] LABS: WHITE BLOOD COUNT 4.2 K/mm3 (4.0-10.0)
[2021-04-19 09:29] LABS: ALBUMIN 1.8 g/dl (3.4-5.0); BLOOD UREA NITROGEN 34.4 mg/dL (7-18); CALCIUM 7.7 mg/dL (8.5-10.1)
[2021-04-19 09:32] LABS: BILIRUBIN,DIRECT 4.1 mg/dL (0.0-0.2); CREATININE 1.5 mg/dL (0.55-1.3)
[2021-04-19 09:33] LABS: BILIRUBIN,TOTAL 5.7 mg/dL (0.2-1)
[2021-04-19 09:34] LABS: TOT PROT 6.3 g/dl (6.4-8.2)
[2021-04-19 10:00] LABS: PLATELET ESTIMATE DECREASED
[2021-04-19] MEDS ORDERED: SPIRONOLACTONE 25 MG TABLET PO SCH (10:00)
[2021-04-19] MEDS ORDERED: PT OWN MED DRAWER 7, Y5N ONE ×2 (10:10→10:15)
[2021-04-19] MEDS: TIOTROPIUM BROMIDE 2.5 MCG (SPIRIVA) RESPIMAT INHALER IH SCH ×2 (11:43→12:15)
[2021-04-19] MEDS: BICTEGRAV/EMTRICIT/TENOFOV (BIKTARVY) 50-200-25 MG TABLET PO SCH ×2 (11:43→12:15)
[2021-04-19] MEDS: MIDODRINE HCL 5 MG TABLET PO SCH (17:28)
[2021-04-19 17:40] LABS: INR 1.69 (0.83-1.09); PROTHROMBIN TIME (PATIENT) 20.1 SEC (9.7-13.0)
[2021-04-19 17:55] LABS: BLOOD UREA NITROGEN 37.5 mg/dL (7-18); CALCIUM 7.6 mg/dL (8.5-10.1)
[2021-04-19 17:59] LABS: CREATININE 1.7 mg/dL (0.55-1.3)
[2021-04-19] MEDS ORDERED: MORPHINE SULFATE 2 MG/ML VIAL IVPUSH ONE (22:18)
[2021-04-20] MEDS: ALBUMIN HUMAN 25% 12.5 GM/50 ML VIAL IVPB SCH ×2 (02:08→08:24)
[2021-04-20] MEDS: PHENAZOPYRIDINE HCL 100 MG TABLET (FP) PO SCH ×3 (08:27→17:37)
[2021-04-20 08:57] LABS: BASO % 0.5 % (0-2.0); EOS % 1.4 % (0-4.5); HEMATOCRIT 20.3 % (32.4-45.2); HEMOGLOBIN 7.1 GM/dL (10.7-15.3); LYMPH % 21.2 % (8-40); MCH 34.5 pg (25.7-33.7); MCHC 34.7 g/dl (32.0-36.0); MEAN CELL VOLUME 99.4 fl (80-96); MEAN PLT VOLUME 8.6 fl (7.5-11.1); MONO % 15.2 % (3.8-10.2); NEUT % 61.7 % (42.8-82.8); PLATELET COUNT 47 10^3/uL (134-434); RBC 2.05 M/mm3 (3.60-5.2); RDW 19.1 % (11.6-15.6); WHITE BLOOD COUNT 3.3 K/mm3 (4.0-10.0)
[2021-04-20 09:18] LABS: BLOOD UREA NITROGEN 34.5 mg/dL (7-18); CALCIUM 7.4 mg/dL (8.5-10.1); MAGNESIUM 2.1 mg/dL (1.8-2.4)
[2021-04-20 09:21] LABS: BILIRUBIN,DIRECT 3.8 mg/dL (0.0-0.2); CREATININE 1.4 mg/dL (0.55-1.3)
[2021-04-20 09:22] LABS: PHOSPHOROUS 3.1 mg/dL (2.5-4.9)
[2021-04-20 09:23] LABS: BILIRUBIN,TOTAL 4.8 mg/dL (0.2-1); TOT PROT 6.2 g/dl (6.4-8.2)
[2021-04-20 09:24] LABS: ALBUMIN 2.2 g/dl (3.4-5.0)
[2021-04-20] MEDS: oxyCODONE HCL 5 MG TABLET PO PRN (10:12)
[2021-04-20] MEDS: TIOTROPIUM BROMIDE 2.5 MCG (SPIRIVA) RESPIMAT INHALER IH SCH (10:13)
[2021-04-20] MEDS: BICTEGRAV/EMTRICIT/TENOFOV (BIKTARVY) 50-200-25 MG TABLET PO SCH (10:13)
[2021-04-20] MEDS: MIDODRINE HCL 5 MG TABLET PO SCH ×3 (10:13→17:27)
[2021-04-20] MEDS: MORPHINE SULFATE 2 MG/ML VIAL IV PRN ×2 (13:01→18:09)
[2021-04-20] MEDS ORDERED: cefTRIAXone SODIUM 1 GM VIAL ONE (14:57)
[2021-04-20] MEDS ORDERED: DEXTROSE 5%-WATER - 50 ML IVPB ONE (14:57)
[2021-04-20] MEDS: CEFTRIAXONE 1 GM in DEXTROSE 5%-WATER - 50 ML IVPB SCH (15:00)
[2021-04-21] MEDS: oxyCODONE HCL 5 MG TABLET PO PRN ×2 (01:21→08:22)
[2021-04-21 07:39] LABS: BASO % 0.3 % (0-2.0); EOS % 3.4 % (0-4.5); HEMATOCRIT 18.5 % (32.4-45.2); LYMPH % 23.7 % (8-40); MCH 34.8 pg (25.7-33.7); MCHC 34.5 g/dl (32.0-36.0); MEAN CELL VOLUME 100.8 fl (80-96); MONO % 18.5 % (3.8-10.2); NEUT % 54.1 % (42.8-82.8); PLATELET COUNT 51 10^3/uL (134-434); RBC 1.84 M/mm3 (3.60-5.2); RDW 19.1 % (11.6-15.6); WHITE BLOOD COUNT 3.7 K/mm3 (4.0-10.0)
[2021-04-21 07:41] LABS: HEMOGLOBIN 6.4 GM/dL (10.7-15.3)
[2021-04-21 07:58] LABS: CALCIUM 7.7 mg/dL (8.5-10.1)
[2021-04-21 07:59] LABS: ALBUMIN 2.1 g/dl (3.4-5.0); BLOOD UREA NITROGEN 33.5 mg/dL (7-18)
[2021-04-21 08:01] LABS: BILIRUBIN,DIRECT 4.2 mg/dL (0.0-0.2)
[2021-04-21 08:02] LABS: CREATININE 1.4 mg/dL (0.55-1.3)
[2021-04-21 08:03] LABS: BILIRUBIN,TOTAL 5.9 mg/dL (0.2-1); TOT PROT 5.9 g/dl (6.4-8.2)
[2021-04-21] MEDS ORDERED: SODIUM CHLORIDE 250 ML IV STA (08:08)
[2021-04-21 10:30] LABS: PLATELET ESTIMATE DECREASED
[2021-04-21] MEDS ORDERED: cefTRIAXone SODIUM 1 GM VIAL ONE (10:37)
[2021-04-21] MEDS ORDERED: DEXTROSE 5%-WATER - 50 ML IVPB ONE (10:37)
[2021-04-21] MEDS: MIDODRINE HCL 5 MG TABLET PO SCH ×3 (10:51→17:57)
[2021-04-21] MEDS: BICTEGRAV/EMTRICIT/TENOFOV (BIKTARVY) 50-200-25 MG TABLET PO SCH (10:51)
[2021-04-21] MEDS: PHENAZOPYRIDINE HCL 100 MG TABLET (FP) PO SCH ×2 (10:51→13:15)
[2021-04-21] MEDS: CEFTRIAXONE 1 GM in DEXTROSE 5%-WATER - 50 ML IVPB SCH (10:51)
[2021-04-21] MEDS: TIOTROPIUM BROMIDE 2.5 MCG (SPIRIVA) RESPIMAT INHALER IH SCH (10:51)
[2021-04-21] MEDS: MORPHINE SULFATE 2 MG/ML VIAL IV PRN ×3 (13:15→21:16)
[2021-04-21] MEDS ORDERED: PT OWN MED DRAWER 7, Y5N ONE ×2 (17:26→21:15)
[2021-04-21] MEDS: OXYBUTYNIN CHLORIDE 5 MG TABLET PO SCH (21:33)
[2021-04-21] MEDS: PHYTONADIONE 10 MG/1 ML AMP SQ SCH (21:42)
[2021-04-21] MEDS ORDERED: OXYBUTYNIN CHLORIDE 5 MG TABLET PO SCH (22:00)
[2021-04-22] MEDS ORDERED: ACETAMINOPHEN 1000 MG/100 ML VIAL (NON FORMULARY) IVPB ONE (02:30)
[2021-04-22] MEDS: MORPHINE SULFATE 2 MG/ML VIAL IV PRN ×4 (07:08→21:28)
[2021-04-22] MEDS ORDERED: PT OWN MED DRAWER 7, Y5N ONE ×4 (08:48→21:26)
[2021-04-22] MEDS ORDERED: cefTRIAXone SODIUM 1 GM VIAL ONE (08:48)
[2021-04-22] MEDS ORDERED: DEXTROSE 5%-WATER - 50 ML IVPB ONE (08:49)
[2021-04-22 09:34] LABS: BASO % 0.2 % (0-2.0); EOS % 3.1 % (0-4.5); HEMATOCRIT 26.6 % (32.4-45.2); HEMOGLOBIN 9.3 GM/dL (10.7-15.3); LYMPH % 14.9 % (8-40); MCH 34.9 pg (25.7-33.7); MCHC 35.1 g/dl (32.0-36.0); MEAN CELL VOLUME 99.5 fl (80-96); MEAN PLT VOLUME 8.7 fl (7.5-11.1); NEUT % 66.8 % (42.8-82.8); PLATELET COUNT 64 10^3/uL (134-434); RBC 2.67 M/mm3 (3.60-5.2); RDW 19.7 % (11.6-15.6); WHITE BLOOD COUNT 3.9 K/mm3 (4.0-10.0)
[2021-04-22 09:44] LABS: ALBUMIN 2.3 g/dl (3.4-5.0)
[2021-04-22 09:46] LABS: BLOOD UREA NITROGEN 31.3 mg/dL (7-18); CALCIUM 7.7 mg/dL (8.5-10.1); MAGNESIUM 2.2 mg/dL (1.8-2.4)
[2021-04-22 09:49] LABS: CREATININE 1.7 mg/dL (0.55-1.3); PHOSPHOROUS 2.7 mg/dL (2.5-4.9)
[2021-04-22 09:50] LABS: BILIRUBIN,TOTAL 9.5 mg/dL (0.2-1); TOT PROT 6.8 g/dl (6.4-8.2)
[2021-04-22] MEDS: OXYBUTYNIN CHLORIDE 5 MG TABLET PO SCH ×2 (09:52→21:27)
[2021-04-22] MEDS: BICTEGRAV/EMTRICIT/TENOFOV (BIKTARVY) 50-200-25 MG TABLET PO SCH (09:53)
[2021-04-22] MEDS: MIDODRINE HCL 5 MG TABLET PO SCH (09:53)
[2021-04-22] MEDS: CEFTRIAXONE 1 GM in DEXTROSE 5%-WATER - 50 ML IVPB SCH (09:54)
[2021-04-22] MEDS: TAMSULOSIN HCL 0.4 MG CAP PO SCH (09:54)
[2021-04-22 12:45] LABS: INR 1.72 (0.83-1.09); PROTHROMBIN TIME (PATIENT) 20.8 SEC (9.7-13.0)
[2021-04-22] MEDS: PHYTONADIONE 10 MG/1 ML AMP SQ SCH (12:54)
[2021-04-22] MEDS: TIOTROPIUM BROMIDE 2.5 MCG (SPIRIVA) RESPIMAT INHALER IH SCH (12:58)
[2021-04-22] MEDS: MIDODRINE HCL 2.5 MG TABLET PO SCH ×2 (16:12→19:07)
[2021-04-23] MEDS: MORPHINE SULFATE 2 MG/ML VIAL IV PRN (03:39)
[2021-04-23] MEDS ORDERED: PT OWN MED DRAWER 7, Y5N ONE ×8 (07:46→23:35)
[2021-04-23] MEDS: MORPHINE SULFATE 2 MG/ML VIAL IVPUSH PRN ×4 (08:23→22:37)
[2021-04-23] MEDS: ATOVAQUONE 750 MG/5 ML (UNIT-DOSE PACKAGING) PO SCH (08:26)
[2021-04-23] MEDS: TAMSULOSIN HCL 0.4 MG CAP PO SCH (08:26)
[2021-04-23 09:14] LABS: BASO % 0.3 % (0-2.0); EOS % 4.5 % (0-4.5); HEMATOCRIT 23.8 % (32.4-45.2); HEMOGLOBIN 8.3 GM/dL (10.7-15.3); LYMPH % 16.8 % (8-40); MCH 34.5 pg (25.7-33.7); MCHC 34.7 g/dl (32.0-36.0); MEAN CELL VOLUME 99.4 fl (80-96); MEAN PLT VOLUME 8.9 fl (7.5-11.1); MONO % 14.7 % (3.8-10.2); NEUT % 63.7 % (42.8-82.8); PLATELET COUNT 44 10^3/uL (134-434); RDW 19.5 % (11.6-15.6); WHITE BLOOD COUNT 3.3 K/mm3 (4.0-10.0)
[2021-04-23 09:20] LABS: ALBUMIN 2.3 g/dl (3.4-5.0)
[2021-04-23 09:21] LABS: BLOOD UREA NITROGEN 27.2 mg/dL (7-18); CALCIUM 7.8 mg/dL (8.5-10.1); MAGNESIUM 2.3 mg/dL (1.8-2.4)
[2021-04-23 09:23] LABS: PHOSPHOROUS 2.2 mg/dL (2.5-4.9)
[2021-04-23 09:25] LABS: CREATININE 1.4 mg/dL (0.55-1.3)
[2021-04-23 09:26] LABS: BILIRUBIN,TOTAL 8.4 mg/dL (0.2-1); TOT PROT 6.4 g/dl (6.4-8.2)
[2021-04-23] MEDS ORDERED: DEXTROSE 5%-WATER - 50 ML IVPB ONE (10:33)
[2021-04-23] MEDS ORDERED: cefTRIAXone SODIUM 1 GM VIAL ONE (10:33)
[2021-04-23] MEDS: CEFTRIAXONE 1 GM in DEXTROSE 5%-WATER - 50 ML IVPB SCH (10:44)
[2021-04-23] MEDS: PHYTONADIONE 10 MG/1 ML AMP SQ SCH (10:45)
[2021-04-23] MEDS: oxyCODONE HCL 5 MG TABLET PO PRN (10:46)
[2021-04-23] MEDS: BICTEGRAV/EMTRICIT/TENOFOV (BIKTARVY) 50-200-25 MG TABLET PO SCH (10:48)
[2021-04-23] MEDS: OXYBUTYNIN CHLORIDE 5 MG TABLET PO SCH ×2 (10:48→22:38)
[2021-04-23] MEDS: MIDODRINE HCL 2.5 MG TABLET PO SCH ×3 (10:49→18:34)
[2021-04-23] MEDS: TIOTROPIUM BROMIDE 2.5 MCG (SPIRIVA) RESPIMAT INHALER IH SCH (10:50)
[2021-04-24] MEDS: MORPHINE SULFATE 2 MG/ML VIAL IVPUSH PRN (05:12)
[2021-04-24] MEDS: oxyCODONE HCL 5 MG TABLET PO PRN (07:26)
[2021-04-24] MEDS ORDERED: PT OWN MED DRAWER 7, Y5N ONE ×2 (07:54→09:13)
[2021-04-24] MEDS: TAMSULOSIN HCL 0.4 MG CAP PO SCH (07:58)
[2021-04-24] MEDS: ATOVAQUONE 750 MG/5 ML (UNIT-DOSE PACKAGING) PO SCH (07:58)
[2021-04-24] MEDS ORDERED: cefTRIAXone SODIUM 1 GM VIAL ONE (09:13)
[2021-04-24] MEDS ORDERED: DEXTROSE 5%-WATER - 50 ML IVPB ONE (09:14)
[2021-04-24] MEDS: OXYBUTYNIN CHLORIDE 5 MG TABLET PO SCH (09:18)
[2021-04-24] MEDS: BICTEGRAV/EMTRICIT/TENOFOV (BIKTARVY) 50-200-25 MG TABLET PO SCH (09:19)
[2021-04-24] MEDS: MIDODRINE HCL 2.5 MG TABLET PO SCH (09:19)
[2021-04-24] MEDS: CEFTRIAXONE 1 GM in DEXTROSE 5%-WATER - 50 ML IVPB SCH (09:20)
[2021-04-24] MEDS: TIOTROPIUM BROMIDE 2.5 MCG (SPIRIVA) RESPIMAT INHALER IH SCH (09:28)
[2021-04-24 09:33] VITALS: BP 80/56; PULSE 89; TEMP 97.7
[2021-04-24] MEDS ORDERED: SIMETHICONE 80 MG TAB.CHEW (FP) PO PRN (10:17)
== END 2021-04-24 13:30 | disposition hospice, inpatient (51) | DRG 435 ==
LOC: JER 00:34 → JERBED 03:21 → J4W 23:11
PROVIDERS: ADMIT Internal Medicine
PROC: 0W9G3ZX Drainage of Peritoneal Cavity, Percutaneous Approach, Diagnostic (ICD-10-PCS; 2021-04-18)
PROC: 30233N1 Transfusion of Nonautologous Red Blood Cells into Peripheral Vein, Percutaneous Approach (ICD-10-PCS; 2021-04-21)
PROC: 0T9B70Z Drainage of Bladder with Drainage Device, Via Natural or Artificial Opening (ICD-10-PCS; principal; 2021-04-23)
DX: C78.7 Secondary malignant neoplasm of liver and intrahepatic bile duct (principal); K72.00 Acute and subacute hepatic failure without coma; J96.01 Acute respiratory failure with hypoxia; N17.0 Acute kidney failure with tubular necrosis; C20 Malignant neoplasm of rectum; J44.1 Chronic obstructive pulmonary disease with (acute) exacerbation; R18.0 Malignant ascites; B20 Human immunodeficiency virus [HIV] disease; I85.00 Esophageal varices without bleeding; N30.41 Irradiation cystitis with hematuria; D61.818 Other pancytopenia; D68.9 Coagulation defect, unspecified; R64 Cachexia; Z68.1 Body mass index [BMI] 19.9 or less, adult; R33.9 Retention of urine, unspecified; K64.8 Other hemorrhoids; G89.29 Other chronic pain; I95.9 Hypotension, unspecified; M54.5 Low back pain; R16.1 Splenomegaly, not elsewhere classified; Z85.048 Personal history of other malignant neoplasm of rectum, rectosigmoid junction, and anus; Z99.81 Dependence on supplemental oxygen; Z71.9 Counseling, unspecified
CPT/HCPCS: 36415; 36430; 36600; 71045-TC-FY; 74176-TC; 76700-TC; 76942-TC; 80048; 80053; 80076; 81003; 82550; 82570; 82803; 83540; 83550; 83605; 83735; 83930; 83935; 84100; 84300; 84484; 85025; 85045; 85610; 85730; 86359; 86360; 86850; 86900; 86901; 86922; 87040; 87086; 93005; 93010; 99285-25; C9803; G2251; J0131; P9047; P9058; U0003; U0005